=== PATIENT | male | born 1955 | race Caucasian/White ===

== ENCOUNTER → 2016-03-28 | Day surgery (SDC) | payer OTHER ==
[2016-03-22 13:33] VITALS: Ht 177.8 cm; Wt 97.7 kg
[~2016-03-28] VITALS: Ht 177.8 cm; Wt 97.7 kg
[~2016-03-28] MED LIST: BUPR-267 PO; CALC600T PO; ESCI1TAB9 PO; FERR325T51 PO; FURO-85 PO; FURO40TA3 PO; INSPMPNVLG; LEVO200T6 PO; LEVO75TA5 PO; LEVOPOW36 PO; LORA-741 PO; LSN5 PO; METF-384 PO; OMEP40CA PO; ONDA4TAB10 SL; OXYC1TAB3 PO; PROP10TA7 PO; SIMV20TA2 PO; SODIUM CHLORIDE 0.9% 500ML 500 ML IV ONE; SPIR50TA2 PO; SPR/100 PO
--- NOTE | 2016-03-28 08:41 | Endo History and Physical ---
History & Physical Date of Service: Mar 28, 2016. Chief Complaint: Esophageal varices Referring Physician: HATTIE Mejia History of Present Illness Hx of liver disease for varices screening. Past Medical History Diabetes, Gastrointestinal Disorder, Anxiety, Reflux, Thyroid Disease, Liver Disease, Depression Past Surgical History Hx Cardiac Surgery: No Hx Internal Defibrillator: No Hx Pacemaker: No Hx Abdominal Surgery: Yes (LIVER RESECTION ) Hx of Implantable Prosthesis: No Hx Post-Op Nausea and Vomiting: No Hx Cancer Surgery: No Hx Thoracic Surgery: No Hx Orthopedic: Yes (RT ARM PLATE INSERTION) Hx Urinary Tract Surgery: No Family History None Social History Smoking Status: Former Smoker Hx Substance Use: No Hx Alcohol Use: No Allergies Coded Allergies: Phenol (Verified Allergy, Severe, DIARRHEA, 03/28/16) Current Medications Reported Home Medications Medications Dose Route/Sig Max Daily Dose Days Date Category Levothyroxine Sodium (Levothyroxine Sodium (Bulk)) 1 Pow 275 Mcg PO DAILY 03/28/16 Reported Roxicodone Ir (Oxycodone HCl) 5 Mg Tab 5 Mg PO Q6H PRN 11/24/15 Reported Lexapro (Escitalopram Oxalate) 10 Mg Tab 10 Mg PO QAM 09/16/15 Reported Inderal (Propranolol HCl) 10 Mg Tab 10 Mg PO BID 09/16/15 Reported Aldactone (Spironolactone) 50 Mg Tab 50 Mg PO QAM 01/10/15 Reported Zofran Odt (Ondansetron HCl) 4 Mg Tab 4 Mg SL Q6H PRN 01/02/15 Reported Calcium 600 (Calcium Carbonate) 600 Mg Tab 1 Tabs PO BID 01/02/15 Reported Iron Supplement (Ferrous Sulfate) 325 Mg Tab 1 Tab PO BID 01/02/15 Reported Lasix (Furosemide) 20 Mg Tab 20 Mg PO QAM 01/02/15 Reported Prilosec (Omeprazole) 40 Mg Capcr 40 Mg PO BID 01/02/15 Reported novoLOG INSULIN PUMP (Insulin Aspart) 1 Ea Inj 1 Ea N/A UD 01/02/15 Reported Ativan (Lorazepam) 0.5 Mg Tab 0.5 Mg PO TID PRN 01/02/15 Reported Glucophage (Metformin Hcl) 1,000 Mg Tab 1,000 Mg PO BID 01/02/15 Reported Lisinopril 5 Mg Tab 5 Mg PO QAM 01/02/15 Reported Bupropion Hcl Er (Bupropion Hcl) 150 Mg Tab 150 Mg PO Q12 01/02/15 Reported Zocor (Simvastatin) 20 Mg Tab 20 Mg PO QPM 01/02/15 Reported Vital Signs Weight (Kilograms): 97.73 Height (Feet): 5 Height (Inches): 10 Date Time Temp Pulse Resp B/P Pulse Ox O2 Delivery O2 Flow Rate FiO2 03/28/16 08:14 36.4 71 16 119/65 97 Room Air Physical Exam General Appearance: no apparent distress Respiratory/Chest: Auscultation: breath sounds normal Cardiovascular: Heart Auscultation: RRR Abdomen: Inspection & Palpation: soft, no masses Assessment and Plan stable for EGD
--- NOTE | 2016-03-28 08:53 | Discharge Instructions ---
Endoscopy Patient Instructions Date / Procedure(s) Performed Mar 28, 2016. EGD Allergy Information Coded Allergies: Phenol (Verified Allergy, Severe, DIARRHEA, 03/28/16) Discharge Date / Findings Mar 28, 2016. grade I varices Medication Instructions Stopped Medication(s): Patient doesn't remember what he was told that he could have today. He's only taken ativan last night and all other meds were taken on Saturday. Provider Instructions Activity Restrictions - No exercising or heavy lifting for 24 hours. - Do not drink alcohol the day of the procedure. - Do not drive a car or operate machinery until the day after the procedure. - Do not make any important decisions or sign important papers in 24 hours after the procedure. Following Day: - Return to full activity which may include returning to work/school. Diet Start your diet with liquids and light foods (jello, soup, juice, toast). Then eat your usual diet if not nauseated. Treatment For Common After Affects For mild abdominal pain, bloating, or excessive gas: - Rest - Eat lightly - Lie on right side Follow-Up Information Follow-up with HATTIE Mejia as scheduled Anesthesia Information What You Should Know You have had a procedure that required some medicine to reduce anxiety and discomfort. This treatment is called moderate sedation. After receiving the treatment, you may be sleepy, but you will be able to breathe on your own. The effects of the treatment may last for several hours. Follow these instructions along with Activity/Diet recommendations noted above: * Do NOT do anything where dizziness or clumsiness would be dangerous. * Rest quietly at home today, then you can be up and about tomorrow. * Have a responsible person stay with you the rest of today. * You may have had an I.V. today. If so, you may take the dressing off later today. Recommendations Call your doctor if: * Trouble breathing * Continuous vomiting for more than 24 hours * Temperature above 101 degrees * Severe abdominal pain or bloating * Pain not relieved by pain medicine ordered * There is increased drainage or redness from any incision * A large amount of rectal bleeding greater than 2-3 tablespoons. (If you had a polyp/s removed or have hemorrhoids, a small amount of blood - from the rectum is to be expected.) * You have any unanswered questions or concerns. IN THE EVENT OF A SERIOUS EMERGENCY, GO TO THE NEAREST EMERGENCY ROOM Your discharge instructions were prepared by provider Edy Branch. Patient Instructions Signature Page Aaron Maherler Patient (or Guardian) Signature/Date: I have read and understand the instructions given to me by my caregivers. Caregiver/RN/Doctor Signature/Date: The above-named patient and/or guardian has received patient instructions on this date. + Original Patient Signature Page (only) stays with chart. Please make copy for patient.
--- NOTE | 2016-03-28 09:05 | GI REPORT ---
Procedure Date: 03/28/2016 8:40 AM Procedure: Upper GI endoscopy Indications: Esophageal varices Medicines: See the Anesthesia note for documentation of the administered medications Complications: No immediate complications. Estimated Blood Loss: Estimated blood loss: none. Procedure: Pre-Anesthesia Assessment: - Prior to the procedure, a History and Physical was performed, and patient medications, allergies and sensitivities were reviewed. The patient's tolerance of previous anesthesia was reviewed. - The risks and benefits of the procedure and the sedation options and risks were discussed with the patient. All questions were answered and informed consent was obtained. - Patient identification and proposed procedure were verified prior to the procedure by the physician and the nurse. The procedure was verified in the pre-procedure area. - Pre-procedure physical examination revealed no contraindications to sedation. - After reviewing the risks and benefits, the patient was deemed in satisfactory condition to undergo the procedure. After obtaining informed consent, the endoscope was passed under direct vision. Throughout the procedure, the patient's blood pressure, pulse, and oxygen saturations were monitored continuously. The On-site loaner was introduced through the mouth, and advanced to the third part of duodenum. The upper GI endoscopy was accomplished without difficulty. The patient tolerated the procedure well. Findings: Grade I varices were found in the lower third of the esophagus. Moderate portal hypertensive gastropathy was found in the stomach. A small amount of food (residue) was found in the gastric body. A previously placed metal stent was seen in the ampulla. The cardia and gastric fundus were normal on retroflexion. Impression: - Grade I esophageal varices. - Portal hypertensive gastropathy. - A small amount of food (residue) in the stomach. - Metal stent in the duodenum. - No specimens collected. Recommendation: - Repeat the upper endoscopy in 6 months for surveillance. - Discharge patient to home. Edy Branch M.D. Edy Branch MD 03/28/2016 9:03:58 AM This report has been signed electronically. Note Initiated On: 03/28/2016 8:40 AM
--- NOTE | 2016-03-28 09:16 | Anesthesiology Progress Note ---
Anesthesia Post Op Note Date & Time Mar 28, 2016 at 09:15 Vital Signs Pain Intensity: 0 Vital Signs Past 12 Hours Date Time Temp Pulse Resp B/P Pulse Ox O2 Delivery O2 Flow Rate FiO2 03/28/16 09:12 67 20 104/64 97 Room Air 03/28/16 08:57 55 20 100/59 97 Room Air 03/28/16 08:14 36.4 71 16 119/65 97 Room Air Notes Mental Status: alert / awake / arousable, participated in evaluation Pt Amnestic to Procedure: Yes Nausea / Vomiting: adequately controlled Pain: adequately controlled Airway Patency, RR, SpO2: stable & adequate BP & HR: stable & adequate Hydration State: stable & adequate Anesthetic Complications: no major complications apparent
[2016-03-28 09:43] VITALS: BP 115/71; PULSE 67; O2SAT 97
== END | disposition home or self-care (01) ==
LOC: C.GI 07:47
PROVIDERS: ATTEND Internal Medicine Gastroenterology
DX: I85.00 Esophageal varices without bleeding (principal); K21.9 Gastro-esophageal reflux disease without esophagitis; K31.89 Other diseases of stomach and duodenum; K76.9 Liver disease, unspecified; E11.9 Type 2 diabetes mellitus without complications; F41.9 Anxiety disorder, unspecified; E07.9 Disorder of thyroid, unspecified; Z90.89 Acquired absence of other organs; Z88.8 Allergy status to other drugs, medicaments and biological substances; Z87.891 Personal history of nicotine dependence

== ENCOUNTER → 2016-08-02 | Outpatient (CLI) | payer OTHER ==
[~2016-08-02] MED LIST changes: -SODIUM CHLORIDE 0.9% 500ML 500 ML IV ONE
== END | disposition home or self-care (01) ==
LOC: C.LABPVFM 11:40
PROVIDERS: ATTEND Nurse Practitioner
DX: E03.9 Hypothyroidism, unspecified (principal)

== ENCOUNTER → 2016-11-06 | Day surgery (SDC) | payer OTHER ==
[2016-10-29 08:22] VITALS: Ht 177.8 cm; Wt 86.4 kg
[~2016-11-06] VITALS: Ht 177.8 cm; Wt 86.4 kg
[~2016-11-06] MED LIST changes: -FURO-85 PO; -LEVOPOW36 PO; +LIDOCAINE HCL 2% 2 ML VIAL (20MG/ML) ONE; -LSN5 PO; +PROPOFOL IV EMULSION 10 MG/ML 20 ML VIAL IV ONE; +SODIUM CHLORIDE 0.9% 500ML 500 ML IV ONE; -SPIR50TA2 PO
--- NOTE | 2016-11-06 09:38 | Endo History and Physical ---
History & Physical Date of Service: Nov 06, 2016. Chief Complaint: Esophageal varices Referring Physician: Neelam Cooper History of Present Illness hx of cirrhosis/ varices screening Past Medical History Diabetes, Gastrointestinal Disorder, Anxiety, Reflux, Thyroid Disease, Liver Disease, Depression Past Surgical History Hx Cardiac Surgery: No Hx Internal Defibrillator: No Hx Pacemaker: No Hx Abdominal Surgery: Yes (LIVER RESECTION AND TUMOR REMOVAL, HERNIA REPAIR) Hx of Implantable Prosthesis: No Hx Post-Op Nausea and Vomiting: No Hx Cancer Surgery: No Hx Thoracic Surgery: No Hx Orthopedic: Yes (RT ARM PLATE INSERTION) Hx Urinary Tract Surgery: No Family History None Social History Smoking Status: Former Smoker Hx Substance Use: No Hx Alcohol Use: No Allergies Coded Allergies: Phenol (Verified Adverse Reaction, Severe, DIARRHEA, 10/29/16) Current Medications Reported Home Medications Medications Dose Route/Sig Max Daily Dose Days Date Category Levothyroxine Sodium 200 Mcg Tab 1 Tab PO QAM 10/29/16 Reported Levothyroxine Sodium 75 Mcg Tab 1 Tab PO QAM 10/29/16 Reported Aldactone (Spironolactone) 100 Mg Tab 100 Mg PO QAM 10/29/16 Reported Lasix (Furosemide) 40 Mg Tab 40 Mg PO QAM 10/29/16 Reported Roxicodone Ir (Oxycodone HCl) 5 Mg Tab 5 Mg PO Q6H PRN 11/24/15 Reported Lexapro (Escitalopram Oxalate) 10 Mg Tab 10 Mg PO QAM 09/16/15 Reported Inderal (Propranolol HCl) 10 Mg Tab 10 Mg PO BID 09/16/15 Reported Zofran Odt (Ondansetron HCl) 4 Mg Tab 4 Mg SL Q6H PRN 01/02/15 Reported Calcium 600 (Calcium Carbonate) 600 Mg Tab 1 Tabs PO BID 01/02/15 Reported Iron Supplement (Ferrous Sulfate) 325 Mg Tab 1 Tab PO BID 01/02/15 Reported Prilosec (Omeprazole) 40 Mg Capcr 40 Mg PO BID 01/02/15 Reported novoLOG INSULIN PUMP (Insulin Aspart) 1 Ea Inj 1 Ea N/A UD 01/02/15 Reported Ativan (Lorazepam) 0.5 Mg Tab 0.5 Mg PO TID PRN 01/02/15 Reported Glucophage (Metformin Hcl) 1,000 Mg Tab 1,000 Mg PO BID 01/02/15 Reported Bupropion Hcl Er (Bupropion Hcl) 150 Mg Tab 150 Mg PO Q12 01/02/15 Reported Zocor (Simvastatin) 20 Mg Tab 20 Mg PO QPM 01/02/15 Reported Vital Signs Weight (Kilograms): 86.36 Height (Feet): 5 Height (Inches): 10 Date Time Temp Pulse Resp B/P (MAP) Pulse Ox O2 Delivery O2 Flow Rate FiO2 11/06/16 09:25 36.8 57 20 98/65 (76) 97 Room Air Physical Exam General Appearance: no apparent distress Respiratory/Chest: Auscultation: breath sounds normal Cardiovascular: Heart Auscultation: RRR Abdomen: Inspection & Palpation: soft Liver: non-tender Assessment and Plan stable for EGD
--- NOTE | 2016-11-06 10:12 | Discharge Instructions ---
Endoscopy Patient Instructions Date / Procedure(s) Performed Nov 06, 2016. EGD Allergy Information Coded Allergies: Phenol (Verified Adverse Reaction, Severe, DIARRHEA, 10/29/16) Discharge Date / Findings Nov 06, 2016. grade 1 varices and portal gastropathy Provider Instructions Activity Restrictions - No exercising or heavy lifting for 24 hours. - Do not drink alcohol the day of the procedure. - Do not drive a car or operate machinery until the day after the procedure. - Do not make any important decisions or sign important papers in 24 hours after the procedure. Following Day: - Return to full activity which may include returning to work/school. Diet Start your diet with liquids and light foods (jello, soup, juice, toast). Then eat your usual diet if not nauseated. Treatment For Common After Affects For mild abdominal pain, bloating, or excessive gas: - Rest - Eat lightly - Lie on right side Follow-Up Information Follow-up with Neelam Cooper as scheduled Anesthesia Information What You Should Know You have had a procedure that required some medicine to reduce anxiety and discomfort. This treatment is called moderate sedation. After receiving the treatment, you may be sleepy, but you will be able to breathe on your own. The effects of the treatment may last for several hours. Follow these instructions along with Activity/Diet recommendations noted above: * Do NOT do anything where dizziness or clumsiness would be dangerous. * Rest quietly at home today, then you can be up and about tomorrow. * Have a responsible person stay with you the rest of today. * You may have had an I.V. today. If so, you may take the dressing off later today. Recommendations Call your doctor if: * Trouble breathing * Continuous vomiting for more than 24 hours * Temperature above 101 degrees * Severe abdominal pain or bloating * Pain not relieved by pain medicine ordered * There is increased drainage or redness from any incision * A large amount of rectal bleeding greater than 2-3 tablespoons. (If you had a polyp/s removed or have hemorrhoids, a small amount of blood - from the rectum is to be expected.) * You have any unanswered questions or concerns. IN THE EVENT OF A SERIOUS EMERGENCY, GO TO THE NEAREST EMERGENCY ROOM Your discharge instructions were prepared by provider Edy Branch. Patient Instructions Signature Page Aaron Pryor Patient (or Guardian) Signature/Date: I have read and understand the instructions given to me by my caregivers. Caregiver/RN/Doctor Signature/Date: The above-named patient and/or guardian has received patient instructions on this date. + Original Patient Signature Page (only) stays with chart. Please make copy for patient.
--- NOTE | 2016-11-06 10:16 | GI REPORT ---
Procedure Date: 11/06/2016 9:44 AM Procedure: Upper GI endoscopy Indications: Portal hypertension rule out esophageal varices Medicines: See the Anesthesia note for documentation of the administered medications Complications: No immediate complications. Estimated Blood Loss: Estimated blood loss: none. Procedure: Pre-Anesthesia Assessment: - Prior to the procedure, a History and Physical was performed, and patient medications, allergies and sensitivities were reviewed. The patient's tolerance of previous anesthesia was reviewed. - The risks and benefits of the procedure and the sedation options and risks were discussed with the patient. All questions were answered and informed consent was obtained. - Patient identification and proposed procedure were verified prior to the procedure by the physician and the nurse. The procedure was verified in the pre-procedure area. - Pre-procedure physical examination revealed no contraindications to sedation. - After reviewing the risks and benefits, the patient was deemed in satisfactory condition to undergo the procedure. After obtaining informed consent, the endoscope was passed under direct vision. Throughout the procedure, the patient's blood pressure, pulse, and oxygen saturations were monitored continuously. The scope was introduced through the mouth, and advanced to the third part of duodenum. The upper GI endoscopy was accomplished without difficulty. The patient tolerated the procedure well. Findings: Grade I varices were found in the lower third of the esophagus. Mild portal hypertensive gastropathy was found in the gastric body. A previously placed metal stent was seen in the area of the papilla. The cardia and gastric fundus were normal on retroflexion. Impression: - Grade I esophageal varices. - Portal hypertensive gastropathy. - Metal stent in the duodenum. - No specimens collected. Recommendation: - Repeat the upper endoscopy in 6 months for screening purposes. - Discharge patient to home. Edy Branch M.D. Edy Branch MD 11/06/2016 10:15:37 AM This report has been signed electronically. Note Initiated On: 11/06/2016 9:44 AM I attest to the content of the Intraoperative Record and orders documented therein, exceptions below
[2016-11-06 10:39] VITALS: BP 93/63; PULSE 55; O2SAT 98
--- NOTE | 2016-11-06 10:45 | Anesthesiology Progress Note ---
Anesthesia Post Op Note Date & Time Nov 06, 2016 at 10:45 Vital Signs Pain Intensity: 0 Vital Signs Past 12 Hours Date Time Temp Pulse Resp B/P (MAP) Pulse Ox O2 Delivery O2 Flow Rate FiO2 11/06/16 10:39 55 20 93/63 (73) 98 Room Air 11/06/16 10:24 55 20 105/63 (77) 96 Room Air 11/06/16 10:09 57 20 97/64 (75) 93 Room Air 11/06/16 09:25 36.8 57 20 98/65 (76) 97 Room Air Notes Mental Status: alert / awake / arousable, participated in evaluation Pt Amnestic to Procedure: Yes Nausea / Vomiting: adequately controlled Pain: adequately controlled Airway Patency, RR, SpO2: stable & adequate BP & HR: stable & adequate Hydration State: stable & adequate Anesthetic Complications: no major complications apparent
== END | disposition home or self-care (01) ==
LOC: C.GI 08:35
PROVIDERS: ATTEND Internal Medicine Gastroenterology
DX: I85.10 Secondary esophageal varices without bleeding (principal); K76.6 Portal hypertension; E11.9 Type 2 diabetes mellitus without complications; E07.9 Disorder of thyroid, unspecified; F41.8 Other specified anxiety disorders; Z79.899 Other long term (current) drug therapy; Z87.891 Personal history of nicotine dependence

== ENCOUNTER → 2016-12-06 | Outpatient (CLI) | payer OTHER ==
[~2016-12-06] MED LIST changes: -LIDOCAINE HCL 2% 2 ML VIAL (20MG/ML) ONE; -PROPOFOL IV EMULSION 10 MG/ML 20 ML VIAL IV ONE; -SODIUM CHLORIDE 0.9% 500ML 500 ML IV ONE
[2016-12-06 18:22] LABS: BLOOD UREA NITROGEN 9 mg/dl (7-18); BUN/CREATININE RATIO 8.4 (10-20); CALCIUM 9.4 mg/dl (8.5-10.1); CARBON DIOXIDE 27 mmol/L (21-32); CHLORIDE 102 mmol/L (98-107); GLUCOSE 67 mg/dl (70-99); POTASSIUM 4.1 mmol/L (3.5-5.1); SODIUM 138 mmol/L (136-145)
[2016-12-06 18:46] LABS: CHOLESTEROL/HDL RATIO 2.9
[2016-12-07 06:55] LABS: ESTIMATED AVERAGE GLUCOSE 114 mg/dl; HA1C FLAG Normal (Normal)
== END | disposition home or self-care (01) ==
LOC: C.LABPVFM 11:47
PROVIDERS: ATTEND Nurse Practitioner
DX: E78.5 Hyperlipidemia, unspecified (principal); E11.9 Type 2 diabetes mellitus without complications; I95.9 Hypotension, unspecified

== ENCOUNTER → 2017-04-15 | Outpatient (CLI) | payer OTHER ==
[2017-04-15 13:26] LABS: HEMOGLOBIN A1C 5.9 % (4.5-5.6)
[2017-04-15 13:52] LABS: BLOOD UREA NITROGEN 10 mg/dl (7-18); CALCIUM 9.3 mg/dl (8.5-10.1); CARBON DIOXIDE 28 mmol/L (21-32); CREATININE 0.95 mg/dl (0.60-1.40); GLUCOSE 43 mg/dl (70-99); POTASSIUM 3.9 mmol/L (3.5-5.1); SODIUM 138 mmol/L (136-145)
[2017-04-15 15:18] LABS: ALBUMIN 2.9 gm/dl (3.4-5.0); ALKALINE PHOSPHATASE 148 U/L (45-117); ALT/SGPT 50 U/L (12-78); AST/SGOT 58 U/L (15-37); TOTAL PROTEIN 8.4 gm/dl (6.4-8.2)
== END | disposition home or self-care (01) ==
LOC: C.LABPVFM 10:35
PROVIDERS: ATTEND Nurse Practitioner
DX: E11.9 Type 2 diabetes mellitus without complications (principal); E03.9 Hypothyroidism, unspecified

== ENCOUNTER → 2017-06-12 | Outpatient (CLI) | payer OTHER ==
[~2017-06-12] MED LIST changes: +BIOT1CAP8 PO; +FERR1TAB13 PO; -FERR325T51 PO; +FURO-85 PO; -FURO40TA3 PO; +LSX/40 PO; -OMEP40CA PO; +OMEP40CA41 PO
[2017-06-12 14:25] LABS: ALBUMIN 3.1 gm/dl (3.4-5.0); ALT/SGPT 82 U/L (12-78); BLOOD UREA NITROGEN 16 mg/dl (7-18); CARBON DIOXIDE 27 mmol/L (21-32); CREATININE 1.24 mg/dl (0.60-1.40); GLUCOSE 112 mg/dl (70-99); POTASSIUM 4.4 mmol/L (3.5-5.1); SODIUM 136 mmol/L (136-145)
[2017-06-12 14:28] LABS: ALKALINE PHOSPHATASE 168 U/L (45-117); AST/SGOT 96 U/L (15-37); TOTAL PROTEIN 8.4 gm/dl (6.4-8.2)
== END | disposition home or self-care (01) ==
LOC: C.LABPVFM 09:31
PROVIDERS: ATTEND Nurse Practitioner
DX: E03.9 Hypothyroidism, unspecified (principal); E11.9 Type 2 diabetes mellitus without complications

== ENCOUNTER → 2017-06-18 | Day surgery (SDC) | payer OTHER ==
[2017-06-11 11:35] VITALS: BMI 25.0
[~2017-06-18] VITALS: Ht 177.8 cm; Wt 80.9 kg
[~2017-06-18] MED LIST changes: +LIDOCAINE HCL 2% 2 ML VIAL (20MG/ML) ONE; +PROPOFOL IV EMULSION 10 MG/ML 20 ML VIAL IV ONE; +SODIUM CHLORIDE 0.9% 500ML 500 ML IV ONE
[2017-06-18 10:03] VITALS: Ht 177.8 cm; Wt 80.9 kg
--- NOTE | 2017-06-18 10:42 | Endo History and Physical ---
History & Physical Date of Service: Jun 18, 2017. Chief Complaint: 6 MONTH RECALL Referring Physician: DR. LECHUGA History of Present Illness Patient with hx of cirrhosis. Past Medical History Diabetes, Gastrointestinal Disorder, Anxiety, Reflux, Thyroid Disease, Liver Disease, Depression Past Surgical History Hx Cardiac Surgery: No Hx Internal Defibrillator: No Hx Pacemaker: No Hx Abdominal Surgery: Yes (LIVER RESECTION AND TUMOR REMOVAL, HERNIA REPAIR) Hx of Implantable Prosthesis: No Hx Post-Op Nausea and Vomiting: No Hx Cancer Surgery: No Hx Thoracic Surgery: No Hx Orthopedic: Yes (RT ARM PLATE INSERTION) Hx Urinary Tract Surgery: No Family History None Social History Smoking Status: Former Smoker Hx Substance Use: No Hx Alcohol Use: No Allergies Coded Allergies: Phenol (Verified Adverse Reaction, Severe, DIARRHEA, 11/06/16) Current Medications Reported Home Medications Medications Dose Route/Sig Max Daily Dose Days Date Category Prilosec (Omeprazole) 40 Mg Cap 40 Mg PO BID 06/11/17 Reported Kp Ferrous Sulfate (Ferrous Sulfate) 325 Mg Tab 1 Tab PO BID 06/11/17 Reported Lasix (Furosemide) 40 Mg Tab 40 Mg PO QAM 06/11/17 Reported Lasix (Furosemide) 20 Mg Tab 20 Mg PO QAM 06/11/17 Reported Biotin 1 Mg Cap 1 Cap PO DAILY 06/11/17 Reported Levothyroxine Sodium 200 Mcg Tab 1 Tab PO QAM 10/29/16 Reported Levothyroxine Sodium 75 Mcg Tab 1 Tab PO QAM 10/29/16 Reported Aldactone (Spironolactone) 100 Mg Tab 100 Mg PO QAM 10/29/16 Reported Roxicodone Ir (Oxycodone HCl) 5 Mg Tab 5 Mg PO Q6H PRN 11/24/15 Reported Lexapro (Escitalopram Oxalate) 10 Mg Tab 10 Mg PO QAM 09/16/15 Reported Inderal (Propranolol HCl) 10 Mg Tab 10 Mg PO BID 09/16/15 Reported Zofran Odt (Ondansetron HCl) 4 Mg Tab 4 Mg SL Q6H PRN 01/02/15 Reported Calcium 600 (Calcium Carbonate) 600 Mg Tab 1 Tabs PO BID 01/02/15 Reported novoLOG INSULIN PUMP (Insulin Aspart) 1 Ea Inj 1 Ea N/A UD 01/02/15 Reported Ativan (Lorazepam) 0.5 Mg Tab 0.5 Mg PO TID PRN 01/02/15 Reported Glucophage (Metformin Hcl) 1,000 Mg Tab 1,000 Mg PO BID 01/02/15 Reported Bupropion Hcl Er (Bupropion Hcl) 150 Mg Tab 150 Mg PO Q12 01/02/15 Reported Zocor (Simvastatin) 20 Mg Tab 20 Mg PO QPM 01/02/15 Reported Vital Signs Weight (Kilograms): 80.91 Height (Feet): 5 Height (Inches): 10 Date Time Temp Pulse Resp B/P (MAP) Pulse Ox O2 Delivery O2 Flow Rate FiO2 06/18/17 10:23 36.4 50 20 105/62 (76) 99 Room Air Physical Exam General Appearance: no apparent distress Respiratory/Chest: Auscultation: breath sounds normal Cardiovascular: Heart Auscultation: RRR Abdomen: Inspection & Palpation: soft Liver: non-tender Assessment and Plan stable for EGD.
--- NOTE | 2017-06-18 11:57 | Discharge Instructions ---
Endoscopy Patient Instructions Date / Procedure(s) Performed Jun 18, 2017. EGD Allergy Information Coded Allergies: Phenol (Verified Adverse Reaction, Severe, DIARRHEA, 11/06/16) Discharge Date / Findings Jun 18, 2017. stable varices Medication Instructions Stopped Medication(s): METFORMAN Provider Instructions Activity Restrictions - No exercising or heavy lifting for 24 hours. - Do not drink alcohol the day of the procedure. - Do not drive a car or operate machinery until the day after the procedure. - Do not make any important decisions or sign important papers in 24 hours after the procedure. Following Day: - Return to full activity which may include returning to work/school. Diet Start your diet with liquids and light foods (jello, soup, juice, toast). Then eat your usual diet if not nauseated. Treatment For Common After Affects For mild abdominal pain, bloating, or excessive gas: - Rest - Eat lightly - Lie on right side Follow-Up Information Follow-up with DR. LECHUGA as scheduled Anesthesia Information What You Should Know You have had a procedure that required some medicine to reduce anxiety and discomfort. This treatment is called moderate sedation. After receiving the treatment, you may be sleepy, but you will be able to breathe on your own. The effects of the treatment may last for several hours. Follow these instructions along with Activity/Diet recommendations noted above: * Do NOT do anything where dizziness or clumsiness would be dangerous. * Rest quietly at home today, then you can be up and about tomorrow. * Have a responsible person stay with you the rest of today. * You may have had an I.V. today. If so, you may take the dressing off later today. Recommendations Call your doctor if: * Trouble breathing * Continuous vomiting for more than 24 hours * Temperature above 101 degrees * Severe abdominal pain or bloating * Pain not relieved by pain medicine ordered * There is increased drainage or redness from any incision * A large amount of rectal bleeding greater than 2-3 tablespoons. (If you had a polyp/s removed or have hemorrhoids, a small amount of blood - from the rectum is to be expected.) * You have any unanswered questions or concerns. IN THE EVENT OF A SERIOUS EMERGENCY, GO TO THE NEAREST EMERGENCY ROOM Your discharge instructions were prepared by provider Edy Branch. Patient Instructions Signature Page Aaron Pryor Patient (or Guardian) Signature/Date: I have read and understand the instructions given to me by my caregivers. Caregiver/RN/Doctor Signature/Date: The above-named patient and/or guardian has received patient instructions on this date. + Original Patient Signature Page (only) stays with chart. Please make copy for patient.
--- NOTE | 2017-06-18 12:12 | GI REPORT ---
Procedure Date: 06/18/2017 10:49 AM Procedure: Upper GI endoscopy Indications: Cirrhosis rule out esophageal varices Medicines: See the Anesthesia note for documentation of the administered medications Complications: No immediate complications. Estimated Blood Loss: Estimated blood loss: none. Procedure: Pre-Anesthesia Assessment: - Prior to the procedure, a History and Physical was performed, and patient medications, allergies and sensitivities were reviewed. The patient's tolerance of previous anesthesia was reviewed. - The risks and benefits of the procedure and the sedation options and risks were discussed with the patient. All questions were answered and informed consent was obtained. - Patient identification and proposed procedure were verified prior to the procedure by the physician and the nurse. The procedure was verified in the pre-procedure area. - Pre-procedure physical examination revealed no contraindications to sedation. - After reviewing the risks and benefits, the patient was deemed in satisfactory condition to undergo the procedure. After obtaining informed consent, the endoscope was passed under direct vision. Throughout the procedure, the patient's blood pressure, pulse, and oxygen saturations were monitored continuously. The scope was introduced through the mouth, and advanced to the third part of duodenum. The upper GI endoscopy was accomplished without difficulty. The patient tolerated the procedure well. Findings: Grade I varices were found in the lower third of the esophagus. Moderate portal hypertensive gastropathy was found in the gastric antrum. A previously placed metal stent was seen in the area of the papilla. The cardia and gastric fundus were normal on retroflexion. Impression: - Grade I esophageal varices. - Portal hypertensive gastropathy. - Metal stent in the duodenum. - No specimens collected. Recommendation: - Repeat upper endoscopy in 6 months for surveillance. - Discharge patient to home. Edy Branch M.D. Edy Branch MD 06/18/2017 12:12:09 PM This report has been signed electronically. Note Initiated On: 06/18/2017 10:49 AM I attest to the content of the Intraoperative Record and orders documented therein, exceptions below
[2017-06-18 12:30] VITALS: BP 97/62; PULSE 51; O2SAT 98
--- NOTE | 2017-06-18 14:50 | Anesthesiology Progress Note ---
Anesthesia Post Op Note Date & Time Jun 18, 2017 at 14:50 Vital Signs Pain Intensity: 0 Vital Signs Past 12 Hours Date Time Temp Pulse Resp B/P (MAP) Pulse Ox O2 Delivery O2 Flow Rate FiO2 06/18/17 12:30 51 16 97/62 (74) 98 Room Air 06/18/17 12:15 52 16 92/71 (78) 99 Room Air 06/18/17 12:00 47 16 111/65 (80) 97 Room Air 06/18/17 10:23 36.4 50 20 105/62 (76) 99 Room Air Notes Mental Status: alert / awake / arousable, participated in evaluation Pt Amnestic to Procedure: Yes Nausea / Vomiting: adequately controlled Pain: adequately controlled Airway Patency, RR, SpO2: stable & adequate BP & HR: stable & adequate Hydration State: stable & adequate Anesthetic Complications: no major complications apparent
== END | disposition home or self-care (01) ==
LOC: C.GI 09:44
PROVIDERS: ATTEND Internal Medicine Gastroenterology
DX: I85.00 Esophageal varices without bleeding (principal); K31.89 Other diseases of stomach and duodenum; K74.60 Unspecified cirrhosis of liver; E11.9 Type 2 diabetes mellitus without complications; F41.9 Anxiety disorder, unspecified; K21.9 Gastro-esophageal reflux disease without esophagitis; E07.9 Disorder of thyroid, unspecified; F32.9 Major depressive disorder, single episode, unspecified; Z87.891 Personal history of nicotine dependence; Z88.8 Allergy status to other drugs, medicaments and biological substances; Z79.899 Other long term (current) drug therapy; Z79.4 Long term (current) use of insulin

== ENCOUNTER 2017-10-19 11:12 | Emergency (ER) | payer OTHER ==
[~2017-10-19] VITALS: Ht 177.8 cm; Wt 85.6 kg
[~2017-10-19 11:12] MED LIST changes: -LIDOCAINE HCL 2% 2 ML VIAL (20MG/ML) ONE; +OXYC-90 PO; -OXYC1TAB3 PO; -PROPOFOL IV EMULSION 10 MG/ML 20 ML VIAL IV ONE; -SODIUM CHLORIDE 0.9% 500ML 500 ML IV ONE; +SPIR100T3 PO; -SPR/100 PO
[2017-10-19 11:24] VITALS: TEMP 36.5; Ht 177.8 cm; Wt 85.6 kg
[2017-10-19] MEDS ORDERED: NVLG (12:10)
[2017-10-19] MEDS ORDERED: INSDGI SC (12:10)
[2017-10-19] MEDS ORDERED: SODIUM CHLORIDE 0.9% 1000ML 1,000 ML IV STA (12:25)
[2017-10-19] MEDS ORDERED: MoRPHine SULFATE 10 MG/ML CARP/VIAL IV STA (12:25)
[2017-10-19] MEDS ORDERED: ONDANSETRON INJ 2 MG/ML 2 ML VIAL IV STA ×2 (12:25→14:44)
[2017-10-19] MEDS ORDERED: OPTIRAY 320 IV PRN (12:30)
[2017-10-19 12:52] LABS: BASO % 0.6 %; BASO ABS # 0.04 K/uL (0-0.2); EOS % 2.4 %; EOS ABS # 0.17 K/uL (0-0.5); HEMATOCRIT 40.8 % (42-52); HEMOGLOBIN 13.9 g/dL (14.0-18.0); IG# 0.02 K/uL (0.00-0.02); LYMPH % 10.4 %; LYMPH ABS # 0.74 K/uL (1.2-3.4); MEAN CELL VOLUME 98.8 fL (80-100); MEAN CORPUSCULAR HEMOGLOBIN 33.7 pg (25-34); MEAN CORPUSCULAR HGB CONC 34.1 g/dl (32-36); MEAN PLATELET VOLUME 10.4 fL (7.4-10.4); MONO ABS # 0.78 K/uL (0.11-0.59); NEUT % 75.3 %; NEUT ABS # 5.35 K/uL (1.4-6.5); PLATELET COUNT 211 K/uL (130-400); RED CELL DISTRIBUTION WIDTH CV 14.1 % (11.5-14.5); RED CELL DISTRIBUTION WIDTH SD 50.3 fL (36.4-46.3)
[2017-10-19] MEDS ORDERED: MoRPHine SULFATE 4 MG/ML 1 ML CARP\\VIAL IV STA ×2 (12:53→14:32)
[2017-10-19 13:13] LABS: ALBUMIN 3.3 gm/dl (3.4-5.0); ALKALINE PHOSPHATASE 190 U/L (45-117); ALT/SGPT 61 U/L (12-78); AST/SGOT 66 U/L (15-37); BLOOD UREA NITROGEN 15 mg/dl (7-18); CALCIUM 9.2 mg/dl (8.5-10.1); CARBON DIOXIDE 25 mmol/L (21-32); CREATININE 1.13 mg/dl (0.60-1.40); GLUCOSE 134 mg/dl (70-99); LIPASE 230 U/L (73-393); POTASSIUM 4.1 mmol/L (3.5-5.1); SODIUM 135 mmol/L (136-145); TOTAL PROTEIN 8.6 gm/dl (6.4-8.2)
--- NOTE | 2017-10-19 14:47 | DIAGNOSTIC IMAGING REPORT ---
CT SCAN OF THE ABDOMEN AND PELVIS WITH IV CONTRAST CLINICAL HISTORY: Nausea. Right upper quadrant abdominal pain. COMPARISON STUDY: Abdominal CT dated 11/24/2015. TECHNIQUE: Following the IV administration of 93 cc of Optiray 320, CT scan of the abdomen and pelvis is performed from the lung bases to the proximal femora. Images are reviewed in the axial, sagittal, and coronal planes. IV contrast was administered without complication. A dose lowering technique was utilized adhering to the principles of ALARA. CT DOSE: 538.03 mGy.cm FINDINGS: Lung bases: The heart is normal in size and without pericardial effusion. There are coronary artery calcifications. There is elevation of the right hemidiaphragm with atelectasis in the right middle lobe. No airspace consolidation or pleural effusion is identified. A large calcified granuloma is seen in the right lower lobe. There is a small hiatal hernia. Gynecomastia is noted. Liver: The right lobe of the liver is surgically absent. There is compensatory hypertrophy of the left hepatic lobe. Hepatic attenuation is markedly heterogeneous. Nodularity of the liver suggests changes of cirrhosis. There is no intrahepatic biliary ductal dilatation. The hepatic veins and portal veins are patent. A 2.3 cm cystic focus is again seen within the anterior right lobe. This appears increased likely complex or 11/24/2015. A common bile duct stent is in place. This extends early mid common duct to the duodenum, and is unchanged in position from the 2016 examination. Minimal pneumobilia is noted and suggests patency of the stent. Gallbladder: Surgically absent. Spleen: Normal in size and attenuation. There are numerous calcified splenic granulomas. Pancreas: The pancreas is atrophic and grossly unremarkable. Adrenal glands: Unremarkable. Kidneys: The contrast enhanced kidneys demonstrate cortical atrophy and are without hydronephrosis. The kidneys enhance symmetrically. Abdominal vasculature: The abdominal aorta is normal in course and caliber noting moderate atherosclerotic calcification. Bowel: There is a large hernia identified in the lateral right lower quadrant abdominal wall. This contains loops of nonobstructed small bowel. The small bowel loops within the hernia appear thick-walled and hyperemic, and there are surrounding inflammatory change and fluid. The appearance is highly concerning for developing ischemia. No pneumatosis intestinalis or portal venous gas is seen. No additional similar-appearing bowel loops are identified in the abdomen or pelvis. The appendix is well-visualized and normal. Peritoneum: There is no intraperitoneal free air. A small volume of abdominopelvic ascites is noted. There is a large fat-containing left supraumbilical hernia. This is seen on image #[id number]. Lymphadenopathy: None. Pelvic viscera: The bladder, prostate, and seminal vesicles are normal as visualized. Surgical clips are noted along the spermatic cord bilaterally. Skeletal structures: The skeletal structures are osteopenic. Mild lumbosacral spondylosis is observed. No lytic or blastic lesions are seen. IMPRESSION: 1. There is a hernia identified in the lateral right lower quadrant abdominal wall which contains nonobstructed small bowel loops. 2. The loops of small bowel within the hernia sac appear thick-walled and hyperemic, and there is significant inflammatory change in the surrounding mesentery as well as fluid within the hernia sac. Although this could represent an enteritis, there are no similar-appearing small bowel loops and the appearance is highly concerning for developing ischemia. Surgical consultation is advised. 3. Again seen are postoperative changes from cholecystectomy, right lobe hepatic resection, and common bile duct stenting. Pneumobilia suggests patency of the stent. 4. There is a small volume of abdominopelvic ascites. No intraperitoneal free air is seen. There is no pneumatosis intestinalis or portal venous gas. 5. There is compensatory hypertrophy of the left hepatic lobe. Cirrhotic change is noted. 6. Additional findings as above. Electronically signed by: Warren Pink M.D. 10/19/2017 2:46 PM Dictated Date/Time: 10/19/2017 2:33 PM
[2017-10-19] MEDS ORDERED: SODIUM CHLORIDE 0.9% 1000ML 1,000 ML IV ONE (14:59)
[2017-10-19 19:38] VITALS: BP 112/71; PULSE 55; O2SAT 98
[2017-10-19] MEDS ORDERED: HYDROCODONE/ACETAMIN 5/325MG TAB PO STA (19:40)
--- NOTE | 2017-10-19 20:30 | EMERGENCY ROOM VISIT NOTE ---
History Report prepared by Nadine: Mary Fritz Under the Supervision of: Dr. Chin Augustine M.D. 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 He reports that when he woke up this morning, he had some pain but he thought it would pass after he ate however, around 1000 his pain had significantly worsened. He began dry heaving and then vomited his breakfast along with some bile. 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 He has some back pain which he states just began but denies any fevers, melena, hematochezia , being around anyone else who is sick. His last normal bowel movement was this morning. The pt reports he has been trying to stay healthy by going to the gym 3x a week. He follow with [facility] and is currently a liver transplant list. 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 A total of ten systems were reviewed and were otherwise negative. Past Medical & Surgical Medical Problems: (1) Cholangiocarcinoma of biliary tract (2) Diabetes mellitus (3) Gall stones (4) Hyperlipidemia (5) Hypothyroid (6) Obstructive jaundice Surgical Problems: (1) S/P ERCP Family History Diabetes mellitus FH: cancer Gallbladder disease Hypertension Social History Smoking Status: Never Smoker Alcohol Use: none Marital Status: Housing Status: lives with significant other Occupation Status: employed Current/Historical Medications Scheduled Biotin (Biotin), 1 CAP PO DAILY Bupropion Hcl (Bupropion Hcl Er), 150 MG PO Q12 Calcium Carbonate (Calcium 600), 600 MG PO BID Escitalopram Oxalate (Lexapro), 10 MG PO QAM Ferrous Sulfate (Kp Ferrous Sulfate), 325 MG PO BID Furosemide (Lasix), 20 MG PO QAM Furosemide (Lasix), 40 MG PO QAM Insulin Glargine (Lantus), 34 UNITS SC QAM Levothyroxine Sodium (Levothyroxine Sodium), 75 MCG PO QAM Levothyroxine Sodium (Levothyroxine Sodium), 200 MCG PO QAM Metformin Hcl (Glucophage), 1,000 MG PO BID Omeprazole (Prilosec), 40 MG PO BID Propranolol (Inderal), 10 MG PO BID Simvastatin (Zocor), 20 MG PO QPM Spironolactone (Aldactone), 100 MG PO QAM Scheduled PRN Lorazepam (Ativan), 0.5 MG PO TID PRN for Anxiety Ondasetron Odt (Zofran Odt), 4 MG SL Q6H PRN for Nausea or Vomiting Miscellaneous Medications Insulin Aspart (Novolog) Allergies Coded Allergies: Phenol (Verified Adverse Reaction, Severe, DIARRHEA, 10/19/17) Physical Exam Vital Signs Date Time Temp Pulse Resp B/P (MAP) Pulse Ox O2 Delivery O2 Flow Rate FiO2 10/19/17 19:38 55 20 112/71 98 10/19/17 17:31 106/61 10/19/17 17:22 57 21 98 10/19/17 17:01 93/63 10/19/17 16:52 54 15 99 10/19/17 16:42 56 10/19/17 16:31 104/59 10/19/17 16:22 55 23 98 10/19/17 16:01 86/54 10/19/17 15:52 63 21 99 10/19/17 15:31 95/61 10/19/17 15:22 53 12 99 10/19/17 15:17 55 15 98 10/19/17 15:01 103/64 10/19/17 14:54 110/67 10/19/17 14:47 52 98 10/19/17 13:47 49 14 97 10/19/17 13:42 48 13 97 10/19/17 13:31 131/78 10/19/17 13:12 48 12 98 10/19/17 13:01 124/70 10/19/17 12:50 51 24 103/60 99 Room Air 10/19/17 12:47 103/60 10/19/17 12:42 51 10/19/17 12:42 49 15 10/19/17 12:12 49 18 10/19/17 11:24 36.5 58 18 111/72 96 Room Air Physical Exam GENERAL: Awake, alert, well-appearing, in no distress HENT: Normocephalic, atraumatic. Oropharynx unremarkable. EYES: Normal conjunctiva. Sclera non-icteric. NECK: Supple. No nuchal rigidity. RESPIRATORY: Clear to auscultation. No wheezes. Normal respiratory effort. CARDIAC: Normal rate. Normal rhythm. Extremities warm and well perfused. GI: Soft, non-distended. No rebound or guarding. Multiple prior well healed abdominal scars. RUQ hepatomegaly with mild to moderate tenderness towards the epigastric area RECTAL: Deferred. MUSCULOSKELETAL: Atraumatic. Chest examination reveals no tenderness. There is no CVA tenderness to palpation. LOWER EXTREMITIES: Calves are equal size bilaterally and non-tender. No edema NEURO: Normal sensorium. No sensory or motor deficits noted. No facial droop. SKIN: Warm and dry. No rash or jaundice noted. Medical Decision & Procedures ER Provider Diagnostic Interpretation: Radiology results as stated below per my review and radiologist interpretation: CT SCAN OF THE ABDOMEN AND PELVIS WITH IV CONTRAST CLINICAL HISTORY: Nausea. Right upper quadrant abdominal pain. COMPARISON STUDY: Abdominal CT dated 11/24/2015. TECHNIQUE: Following the IV administration of 93 cc of Optiray 320, CT scan of the abdomen and pelvis is performed from the lung bases to the proximal femora. Images are reviewed in the axial, sagittal, and coronal planes. IV contrast was administered without complication. A dose lowering technique was utilized adhering to the principles of ALARA. CT DOSE: 538.03 mGy.cm FINDINGS: Lung bases: The heart is normal in size and without pericardial effusion. There are coronary artery calcifications. There is elevation of the right hemidiaphragm with atelectasis in the right middle lobe. No airspace consolidation or pleural effusion is identified. A large calcified granuloma is seen in the right lower lobe. There is a small hiatal hernia. Gynecomastia is noted. Liver: The right lobe of the liver is surgically absent. There is compensatory hypertrophy of the left hepatic lobe. Hepatic attenuation is markedly heterogeneous. Nodularity of the liver suggests changes of cirrhosis. There is no intrahepatic biliary ductal dilatation. The hepatic veins and portal veins are patent. A 2.3 cm cystic focus is again seen within the anterior right lobe. This appears increased likely complex or 11/24/2015. A common bile duct stent is in place. This extends early mid common duct to the duodenum, and is unchanged in position from the 2016 examination. Minimal pneumobilia is noted and suggests patency of the stent. Gallbladder: Surgically absent. Spleen: Normal in size and attenuation. There are numerous calcified splenic granulomas. Pancreas: The pancreas is atrophic and grossly unremarkable. Adrenal glands: Unremarkable. Kidneys: The contrast enhanced kidneys demonstrate cortical atrophy and are without hydronephrosis. The kidneys enhance symmetrically. Abdominal vasculature: The abdominal aorta is normal in course and caliber noting moderate atherosclerotic calcification. Bowel: There is a large hernia identified in the lateral right lower quadrant abdominal wall. This contains loops of nonobstructed small bowel. The small bowel loops within the hernia appear thick-walled and hyperemic, and there are surrounding inflammatory change and fluid. The appearance is highly concerning for developing ischemia. No pneumatosis intestinalis or portal venous gas is seen. No additional similar-appearing bowel loops are identified in the abdomen or pelvis. The appendix is well-visualized and normal. Peritoneum: There is no intraperitoneal free air. A small volume of abdominopelvic ascites is noted. There is a large fat-containing left supraumbilical hernia. This is seen on image #179. Lymphadenopathy: None. Pelvic viscera: The bladder, prostate, and seminal vesicles are normal as visualized. Surgical clips are noted along the spermatic cord bilaterally. Skeletal structures: The skeletal structures are osteopenic. Mild lumbosacral spondylosis is observed. No lytic or blastic lesions are seen. IMPRESSION: 1. There is a hernia identified in the lateral right lower quadrant abdominal wall which contains nonobstructed small bowel loops. 2. The loops of small bowel within the hernia sac appear thick-walled and hyperemic, and there is significant inflammatory change in the surrounding mesentery as well as fluid within the hernia sac. Although this could represent an enteritis, there are no similar-appearing small bowel loops and the appearance is highly concerning for developing ischemia. Surgical consultation is advised. 3. Again seen are postoperative changes from cholecystectomy, right lobe hepatic resection, and common bile duct stenting. Pneumobilia suggests patency of the stent. 4. There is a small volume of abdominopelvic ascites. No intraperitoneal free air is seen. There is no pneumatosis intestinalis or portal venous gas. 5. There is compensatory hypertrophy of the left hepatic lobe. Cirrhotic change is noted. 6. Additional findings as above. Electronically signed by: Warren Pink M.D. 10/19/2017 2:46 PM Laboratory Results 10/19/17 12:40 Red Blood Count 4.13, Mean Corpuscular Volume 98.8, Mean Corpuscular Hemoglobin 33.7, Mean Corpuscular Hemoglobin Concent 34.1, Mean Platelet Volume 10.4, Neutrophils (%) (Auto) 75.3, Lymphocytes (%) (Auto) 10.4, Monocytes (%) (Auto) 11.0, Eosinophils (%) (Auto) 2.4, Basophils (%) (Auto) 0.6, Neutrophils # (Auto ) 5.35, Lymphocytes # (Auto) 0.74, Monocytes # (Auto) 0.78, Eosinophils # (Auto ) 0.17, Basophils # (Auto) 0.04 10/19/17 12:40 Test 10/19/17 12:40 10/19/17 15:06 White Blood Count 7.10 K/uL (4.8-10.8) Red Blood Count 4.13 M/uL (4.7-6.1) Hemoglobin 13.9 g/dL (14.0-18.0) Hematocrit 40.8 % (42-52) Mean Corpuscular Volume 98.8 fL (80-100) Mean Corpuscular Hemoglobin 33.7 pg (25-34) Mean Corpuscular Hemoglobin Concent 34.1 g/dl (32-36) Platelet Count 211 K/uL (130-400) Mean Platelet Volume 10.4 fL (7.4-10.4) Neutrophils (%) (Auto) 75.3 % Lymphocytes (%) (Auto) 10.4 % Monocytes (%) (Auto) 11.0 % Eosinophils (%) (Auto) 2.4 % Basophils (%) (Auto) 0.6 % Neutrophils # (Auto) 5.35 K/uL (1.4-6.5) Lymphocytes # (Auto) 0.74 K/uL (1.2-3.4) Monocytes # (Auto) 0.78 K/uL (0.11-0.59) Eosinophils # (Auto) 0.17 K/uL (0-0.5) Basophils # (Auto) 0.04 K/uL (0-0.2) RDW Standard Deviation 50.3 fL (36.4-46.3) RDW Coefficient of Variation 14.1 % (11.5-14.5) Immature Granulocyte % (Auto) 0.3 % Immature Granulocyte # (Auto) 0.02 K/uL (0.00-0.02) Anion Gap 7.0 mmol/L (3-11) Est Creatinine Clear Calc Drug Dose 71.8 ml/min Estimated GFR () 81.4 Estimated GFR (Non- 70.3 BUN/Creatinine Ratio 13.4 (10-20) Calcium Level 9.2 mg/dl (8.5-10.1) Total Bilirubin 1.0 mg/dl (0.2-1) Direct Bilirubin 0.4 mg/dl (0-0.2) Aspartate Amino Transf (AST/SGOT) 66 U/L (15-37) Alanine Aminotransferase (ALT/SGPT) 61 U/L (12-78) Alkaline Phosphatase 190 U/L (45-117) Troponin I < 0.015 ng/ml (0-0.045) Total Protein 8.6 gm/dl (6.4-8.2) Albumin 3.3 gm/dl (3.4-5.0) Lipase 230 U/L (73-393) Bedside Lactic Acid Venous 1.71 mmol/L (0.90-1.70) Laboratory results reviewed by me Medications Administered Medications (Trade) Dose Ordered Sig/Miguelito Route Start Time Stop Time Status Last Admin Dose Admin Sodium Chloride 1,000 ml @ 999 mls/hr Q1H1M STAT IV 10/19/17 12:25 10/19/17 13:25 DC 10/19/17 12:51 999 MLS/HR Ondansetron HCl (Zofran Inj) 4 mg NOW STAT IV 10/19/17 12:25 10/19/17 12:28 DC 10/19/17 13:54 4 MG Morphine Sulfate (MoRPHine SULFATE INJ) 4 mg NOW STAT IV 10/19/17 12:53 10/19/17 12:54 DC 10/19/17 13:56 4 MG Morphine Sulfate (MoRPHine SULFATE INJ) 4 mg NOW STAT IV 10/19/17 14:32 10/19/17 14:33 DC 10/19/17 14:40 4 MG Ondansetron HCl (Zofran Inj) 4 mg NOW STAT IV 8/11/18 14:44 10/19/17 14:45 DC 10/19/17 15:07 4 MG Sodium Chloride 1,000 ml @ 999 mls/hr Q1H1M ONCE IV 10/19/17 14:59 10/19/17 15:59 DC 10/19/17 15:07 999 MLS/HR Acetaminophen/ Hydrocodone Bitart ([place] 5/325 Tab) 1 tab ONE STAT PO 10/19/17 19:40 10/19/17 19:41 DC 10/19/17 19:45 1 TAB ECG Per My Interpretation Indication: abdominal pain Rate (beats per minute): 48 Rhythm: sinus bradycardia Findings: T-wave inversion (in lead III), other (normal intervals, no ST segment elevation) Comparison ECG Date: 01/02/15 Change: Bradycardic rate and TWI in lead III are new from prior EKG ED Course 1217: The patient was evaluated in room C8. A complete history and physical exam was performed. 1225: Ordered Zofran Inj 4 mg IV, Morphine Sulfate 6 mg IV, Sodium Chloride 1000 ml @ 999 mls/hr IV 1253: Ordered Morphine Sulfate 4 mg IV 1432: Ordered Morphine Sulfate 4 mg IV 1444: Ordered Zofran Inj 4 mg IV 1459: Ordered Sodium Chloride 1000 ml @ 999 mls/hr IV 1455: I checked on the patient at this time. She is still in pain but nausea mildly improved.. I discussed her CT results with him. I am going to try and get a hold of the patients surgeon at [facility]. 1527: Discussed the patient's case with Dr. Danish Delong, [facility] Surgery. He wanted us to ask for the patients to see the patient to determine if he needs to be transferred. 1535: Discussed the patient's case with Dr. Flores, Thoracic Surgery [facility]. He states he wants the ED to call [facility] to discuss the patient's case. 1544: Discussed the patient's case with Dr. Danish Delong, [facility] Surgery. The patient will be evaluated for further treatment and transported via ground to [facility]. 1925: I checked on the patient at this time. He is pain free. I discussed the options with the patient and they will go via private vehicle to [facility] now. Medical Decision Triage Nursing notes reviewed. Differential diagnosis: Etiologies such as appendicitis, diverticulitis, PUD, biliary pathology, UTI, pancreatitis, obstruction, mesenteric ischemia, aortic pathology, infections, inflammatory bowel disease, renal colic, as well as others were entertained. Patient presents with onset this morning of epigastric and right upper quadrant pain with associated nausea. Has vomited. History of significant liver issues currently followed at [facility] on liver transplant list. Otherwise been feeling well recently. No fevers reported. Did move his bowels this morning without any melanotic or bloody stools. Denies change in his abdomen which does have hepatomegaly; however, there is some right upper quadrant epigastric tenderness which is new. CT scan of the abdomen pelvis was completed along with laboratory studies look for any signs of possible hepatitis pancreatitis or intra-abdominal process that could be related to his symptoms. Given some fluid rehydration and antiemetics and pain control. Will discuss with his team at [facility] after this is completed. Doubt obstruction given that he moved his bowels this morning. Does not seem consistent with GI bleed. Labs are grossly unremarkable compared to previous from August. No lactate elevation. CT has some some concerning findings in the right lower for possible ischemia with hyperemia. No pneumatosis. Patient's pain refractory to the medicine here. Discussed with the patient will be to call his surgeons at [facility]. Discussed with them the case via phone. Patient wishes for transfer there for further care. Extensive discussions with MD at [facility] who accepted the emergency department for further evaluation. Unable to reduce the hernia itself fully. Pain has moderated some since arrival. Unfortunately due to transportation issues the patient is unable to be probably transferred via ambulance. Patient's symptoms have significantly improved but still not able to fully reduce the hernia. Doubt jeff bowel ischemia now as pain has abated. During attempted hernia reductions/abdominal exams may have improved blood flow here. Discussed with him options including waiting for the ambulance additional 6 hours or more versus going by private vehicle. Patient's symptoms of moderated and no minimal pain and no nausea. He, after discussion with him and the , are comfortable with private vehicle transfer to the [facility] emergency room to avoid further wait or delay. HE was aware of risks and benefits of this. Medication Reconcilliation Current Medication List: was personally reviewed by me Blood Pressure Screening Patient's blood pressure: Normal blood pressure Blood pressure disposition: Did not require urgent referral Consults Time Called: [phone] Consulting Physician: Dr. Danish Delong, [facility] Surgery Returned Call: 1527 Discussed the patient's case with Dr. Danish Delong, [facility] Surgery. He wanted us to ask for the patients to see the patient to determine if he needs to be transferred. Additional Consults: Time Called: 1527 Consulted Physician: Dr. Flores, Thoracic Surgery [facility] Returned Call: 1535 Additional Comments: Discussed the patient's case with Dr. Flores, Thoracic Surgery [facility]. He states he wants the ED to call [facility] to discuss the patient's case. Time Called: 1535 Consulted Physician: Dr. Danish Delong, [facility] Surgery Returned Call: [phone] Additional Comments: Discussed the patient's case with Dr. Danish Delong, [facility] Surgery. The patient will be evaluated for further treatment and transported via ground to [facility]. Impression Primary Impression: Irreducible ventral hernia Additional Impression: Ischemia, bowel Scribe Attestation The scribe's documentation has been prepared under my direction and personally reviewed by me in its entirety. I confirm that the note above accurately reflects all work, treatment, procedures, and medical decision making performed by me. Departure Information Dispostion Transfer Acute Care Facility ([facility]) Referrals Neelam Cooper C.R.N.P (PCP) Patient Instructions My [facility] Additional Instructions Please proceed to the [facility] emergency department for further evaluation. We discussed the risks and benefits of this. If at any time you have concerns please feel free to represent here or call [phone]. Would recommend following up in [place] to have your surgeons review the imaging and ensure that no further emergent procedure intervention is possible. Given that your symptoms are resolving after evaluation you may even be stable enough to return home. Problem Qualifiers
== END 2017-10-19 19:43 | disposition short-term general hospital (02) ==
LOC: C.EDB 11:13 → C.EDC 19:43
DX: K43.9 Ventral hernia without obstruction or gangrene (principal); K55.059 Acute (reversible) ischemia of intestine, part and extent unspecified; E11.9 Type 2 diabetes mellitus without complications; E78.5 Hyperlipidemia, unspecified; E03.9 Hypothyroidism, unspecified; Z79.899 Other long term (current) drug therapy; Z88.8 Allergy status to other drugs, medicaments and biological substances

== ENCOUNTER 2020-07-03 12:58 | Inpatient (IN) ==
[2020-07-03] MEDS ORDERED: CEFEPIME 2,000 MG/20 ML VIAL IV STA (13:49)
[2020-07-03] MEDS ORDERED: SODIUM CHLORIDE 0.9% 1000ML 1,000 ML IV SCH (14:00)
--- NOTE | 2020-07-03 14:08 | Emergency Department Note ---
Impression & Plan Sepsis, Tachycardia, Fever, Flu-like symptoms ED Provider Note NAME: LAKISHA WERNER AGE: 64 SEX: M : 1955 ARRIVES VIA: Walk-In INFORMANT: [Patient][] ED PROVIDER(S): [Warren Kebede MD] CHIEF COMPLAINT: Fever HISTORY OF PRESENT ILLNESS: The patient is a 64-year-old male who states that today, several hours ago, he began noticing chills and body aches. He noticed a temperature. His temperature got up to about 101. He did take an extra strength Tylenol prior to arrival. There has been no cough or congestion. He has not had vomiting or diarrhea. No abdominal pain or chest pain. He states he feels almost as if he is coming down with a cold. He has felt some postnasal drip. No real sore throat though, no stuffy nose. The patient admits to feeling weak. The patient has not been septic before. He has not been vaccinated for Covid but is scheduled in the very near future. No obvious Covid exposures. REVIEW OF SYSTEMS: See HPI for pertinent positives and negatives. A total of ten systems were reviewed and were otherwise negative. PMHx/PSHx: See Below SOCIAL HISTORY: See Below. PHYSICAL EXAM: GENERAL: Patient is in no acute distress. HEENT: No acute trauma, normocephalic atraumatic, mucous membranes moist, no nasal congestion, no scleral icterus. NECK: No stridor, no adenopathy, no meningismus, trachea is midline. LUNGS: Clear to auscultation bilaterally, no wheeze, no rhonchi, breath sounds equal. HEART: Tachycardic, regular rhythm, no murmurs. ABDOMEN: Soft, nontender, bowel sounds positive, no hernias, no peritonitis. EXTREMITIES: No cyanosis or edema, full range of motion of all the joints without pain or difficulty, no signs for acute trauma. NEUROLOGIC: Oriented x 3, no acute motor or sensory deficits, no focal weakness. SKIN: No rash, no jaundice, no diaphoresis. DIFFERENTIAL DIAGNOSIS: Sepsis, UTI, pneumonia, metabolic abnormality, electrolyte abnormalities, COVID- 19, influenza, cardiac sources, cellulitis, UTI, bacteremia, intracerebral event, toxicologic etiology, neurologic event, as well as other pathologies. EMERGENCY DEPARTMENT COURSE/PROCEDURES: ECG: Indication was tachycardia. The ECG shows a sinus tachycardia with some nonspecific ST change. The rate is 129. There is an old inferior infarct. There is no ST elevation, no PVCs. The QTc is 416. Continuous Cardiac Monitoring: An order was placed for continuous cardiac monitoring. The monitor shows a rate of 128 with sinus tachycardia. Critical Care Note: I have personally spent 51 minutes of critical care time in the direct management of this patient. This includes bedside care, interpretation of diagnostic studies, and testing, discussion with consultants, patient, and family members, and other required patient management activities. This 51 minutes is in excess of all separately billable procedures. MEDICAL DECISION MAKING: There is a mild leukocytosis, this certainly could be consistent with infection. There is a normal hemoglobin and platelet count. No coagulopathy. No significant electrolyte abnormality or kidney failure. Lactic acid level was elevated at over 3, this is consistent with infection. There were some liver enzyme elevations-the patient does have a history of cirrhosis. ECG shows a sinus tachycardia, no acute ischemia. Cardiac enzyme testing x1 is not consistent with acute cardiac injury. Urinalysis is not consistent with infection. Covid and influenza testing returned negative. Chest x-ray did not show pneumonia or CHF. On exam, there was no cellulitis. The patient was tachycardic, he did not appear toxic. The patient was given IV saline, 2 L. He received IV cefepime as empiric antibiotic coverage. He had taken Tylenol for fever prior to arrival. The patient meets criteria for sepsis. The source at this point is not clear. He has had sepsis in the past. Hospitalization is warranted. I spoke to the patient and case management. The on-call hospitalist was consulted. Past Med/Surg History Medical History Anemia Cirrhosis of liver Depression DM type 2 (diabetes mellitus, type 2) IDDM Esophageal varices hx banding GERD (gastroesophageal reflux disease) GI bleed hx History of ascites Hyperlipidemia Hypertension hx Hypothyroidism Peripheral neuropathy Post traumatic stress disorder Surgical History History of abdominal paracentesis multiple (last 2 years ago) History of cholecystectomy History of colonoscopy History of ERCP History of esophagogastroduodenoscopy (EGD) History of herniorrhaphy WITH MESH-2018 History of surgery of liver Hepatic lobectomy (benign tumor) History of tooth extraction Hx of hand surgery RT HAND/ARM SURGERY (METAL PLATE D/T FX) Hx of vasectomy S/P debridement ABDOMINAL WOUND 2017 Family History Mother Diabetes Grandmother No problems noted. Grandmother (Maternal) Diabetes Family/Other Heart disease Cancer Hypertension Other No family history of adverse response to anesthesia Denies family history of Ovarian cancer Prostate cancer Myocardial infarction Breast cancer Colorectal cancer Social History Smoking Status: Former smoker Cigarettes Per Day: QUIT 35 YEARs ago; Smoking End Date: 1990; Second Hand Exposure: No; Do You Dip or Chew Tobacco: Yes; Tobacco Cessation Education Requested by Patient: No Hx Alcohol Use: No Hx Substance Use: No Preferred Language: Luxembourgish Communication Ability: Effective Casino Surveillance Officer Required: No Beliefs That Will Affect Care: None Current Living Situation: Spouse Other Information That Helps Us Care for You: No Feels Safe at Home: Yes Safety Concerns: Feels Safe At This Time Dental Care, Regularly: Yes Seatbelt Use: always Sunscreen Use: No Assistive Devices: Denture - Upper and Denture - Lower Assistive Devices Comment: Sensor for Continuious Glucose monitor Allergies Allergies Allergy/AdvReac Type Severity Reaction Status Date / Time exenatide [From Byetta] AdvReac Intermediate Diarrhea Verified 07/03/20 15:06 Home Meds Home Medications Medication Instructions Recorded Confirmed cyanocobalamin (vitamin B-12) 1,000 mcg PO QAM 11/25/18 07/03/20 1,000 mcg capsule calcium carbonate [Calcium 600] 600 mg PO BID 12/25/18 07/03/20 cholecalciferol (vitamin D3) 1,000 unit PO BID 12/25/18 07/03/20 [Vitamin D3] cannabidiol (CBD) extract 1 dose PO BID 01/09/19 07/03/20 bupropion HCl 150 mg PO BID 05/09/20 07/03/20 furosemide 20 mg PO QAM 05/09/20 07/03/20 insulin aspart U-100 [Novolog 1 sliding scale dose SUBCUT 05/09/20 07/03/20 U-100 Insulin aspart] USEASDIRECTD metformin 1,000 mg PO BID 05/09/20 07/03/20 omeprazole 40 mg PO BID 05/09/20 07/03/20 spironolactone 50 mg PO QAM 05/09/20 07/03/20 acetaminophen [Tylenol Extra 500 mg PO Q6H PRN 07/03/20 07/03/20 Strength] Previous Rx's Medication Instructions Recorded biotin 10 mg tablet 10 mg PO QAM #30 tab 08/11/18 blood sugar diagnostic #10 ea 08/11/18 ferrous sulfate 325 mg (65 mg 325 mg PO BID #60 tab 08/11/18 iron) tablet ondansetron 4 mg disintegrating See Rx Instructions .ROUTE 08/07/19 tablet .COMPLEX #30 tab levothyroxine 175 mcg tablet 175 mcg PO QAM #90 tab 09/14/19 simvastatin 20 mg tablet 20 mg PO HS #90 tab 10/26/19 insulin glargine 100 unit/mL (3 15 unit SUBCUT QAM #15 ml 12/01/19 mL) subcutaneous pen pen needle, diabetic 32 gauge x #100 ea 06/20/20" Results & Data (ED) Vital Signs Vital Signs - 24 hr 07/03/20 13:09 07/03/20 13:30 07/03/20 13:31 Temperature 36.7 C Temperature Source Oral Pulse Rate 141 H 125 H 126 H Pulse Rate from SpO2 Sensor 126 H 127 H Pulse Rhythm Regular Pulse Strength Normal Respiratory Rate 20 19 16 Respiratory Effort / Characteristics Non-Labored Respiratory Depth Normal Respiratory Pattern Regular Blood Pressure 117/77 131/82 Blood Pressure Mean 90 98 Blood Pressure Position Sitting Pulse Oximetry 96 96 96 Oxygen Delivery Method Room Air Sepsis Recent Fever Within 48 Hours No Sepsis New/Unexplained Change in Mental Status No Sepsis Action Taken by Nursing No Action Required 07/03/20 13:40 07/03/20 14:00 07/03/20 14:01 Temperature Temperature Source Pulse Rate 128 H 128 H 127 H Pulse Rate from SpO2 Sensor Pulse Rhythm Pulse Strength Respiratory Rate 20 22 17 Respiratory Effort / Characteristics Respiratory Depth Respiratory Pattern Blood Pressure 126/94 Blood Pressure Mean 104 Blood Pressure Position Pulse Oximetry Oxygen Delivery Method Sepsis Recent Fever Within 48 Hours Sepsis New/Unexplained Change in Mental Status Sepsis Action Taken by Nursing 07/03/20 14:20 07/03/20 14:30 07/03/20 14:40 Temperature Temperature Source Pulse Rate 126 H 127 H 128 H Pulse Rate from SpO2 Sensor Pulse Rhythm Pulse Strength Respiratory Rate 24 27 H 27 H Respiratory Effort / Characteristics Respiratory Depth Respiratory Pattern Blood Pressure 104/78 Blood Pressure Mean 86 Blood Pressure Position Pulse Oximetry Oxygen Delivery Method Sepsis Recent Fever Within 48 Hours Sepsis New/Unexplained Change in Mental Status Sepsis Action Taken by Nursing 07/03/20 14:45 07/03/20 15:00 07/03/20 15:08 Temperature Temperature Source Pulse Rate 124 H 124 H Pulse Rate from SpO2 Sensor 124 H 125 H Pulse Rhythm Pulse Strength Respiratory Rate 18 29 H Respiratory Effort / Characteristics Respiratory Depth Respiratory Pattern Blood Pressure 105/72 Blood Pressure Mean 83 Blood Pressure Position Pulse Oximetry 95 96 95 Oxygen Delivery Method Room Air Sepsis Recent Fever Within 48 Hours Sepsis New/Unexplained Change in Mental Status Sepsis Action Taken by Nursing 07/03/20 15:20 07/03/20 15:30 07/03/20 15:40 Temperature Temperature Source Pulse Rate 122 H 120 H 122 H Pulse Rate from SpO2 Sensor 123 H 121 H 122 H Pulse Rhythm Pulse Strength Respiratory Rate 22 21 25 H Respiratory Effort / Characteristics Respiratory Depth Respiratory Pattern Blood Pressure 104/75 Blood Pressure Mean 84 Blood Pressure Position Pulse Oximetry 96 96 95 Oxygen Delivery Method Sepsis Recent Fever Within 48 Hours Sepsis New/Unexplained Change in Mental Status Sepsis Action Taken by Nursing 07/03/20 15:51 07/03/20 16:00 07/03/20 16:32 Temperature 37.4 C Temperature Source Oral Pulse Rate 122 H Pulse Rate from SpO2 Sensor 122 H 112 H Pulse Rhythm Pulse Strength Respiratory Rate 23 Respiratory Effort / Characteristics Respiratory Depth Respiratory Pattern Blood Pressure 112/74 Blood Pressure Mean 86 Blood Pressure Position Pulse Oximetry 96 99 Oxygen Delivery Method Sepsis Recent Fever Within 48 Hours Sepsis New/Unexplained Change in Mental Status Sepsis Action Taken by Nursing 07/03/20 16:40 07/03/20 17:00 07/03/20 17:06 Temperature Temperature Source Pulse Rate 114 H 116 H Pulse Rate from SpO2 Sensor 111 H 114 H 115 H Pulse Rhythm Pulse Strength Respiratory Rate 22 21 Respiratory Effort / Characteristics Respiratory Depth Respiratory Pattern Blood Pressure 81/60 L 107/58 L Blood Pressure Mean 67 74 Blood Pressure Position Pulse Oximetry 99 97 97 Oxygen Delivery Method Sepsis Recent Fever Within 48 Hours Sepsis New/Unexplained Change in Mental Status Sepsis Action Taken by Usp Medications Current Medication List: was personally reviewed by me Laboratory Data Attestation: I reviewed the patient's lab results. Result diagrams: 07/03/20 14:08 07/03/20 14:08 Lab Results 07/03/20 07/03/20 07/03/20 Range/Units 14:08 14:08 14:08 WBC 12.16 H (4.8-10.8) K/uL RBC 4.46 L (4.7-6.1) M/uL Hgb 14.9 (14.0-18.0) g/dL Hct 42.6 (42-52) % MCV 95.5 (80-100) fL MCH 33.4 (25-34) pg MCHC 35.0 (32-36) g/dL RDW Std Deviation 51.5 H (36.4-46.3) fL RDW Coeff of Debby 14.7 H (11.5-14.5) % Plt Count 196 (130-400) K/uL MPV 10.6 H (7.4-10.4) fL Immature Gran % (Auto) 0.2 % Neut % (Auto) 84.9 % Lymph % (Auto) 6.3 % [place] % (Auto) 8.1 % Eos % (Auto) 0.3 % Baso % (Auto) 0.2 % Neut # (Auto) 10.32 H (1.4-6.5) K/uL Lymph # (Auto) 0.77 L (1.2-3.4) K/uL [place] # (Auto) 0.99 H (0.11-0.59) K/uL Eos # (Auto) 0.04 (0-0.5) K/uL Baso # (Auto) 0.02 (0-0.2) K/uL Immature Gran # (Auto) 0.02 (0.00-0.02) K/uL PT 11.3 (9.0-12.0) Seconds INR 1.1 (0.9-1.1) APTT 24.9 (21.0-31.0) Seconds PTT Ratio 0.9 Sodium 140 (136-145) mmol/L Potassium 4.2 (3.5-5.1) mmol/L Chloride 106 (98-107) mmol/L Carbon Dioxide 24 (21-32) mmol/L Anion Gap 10.0 (3-11) BUN 17 (7-18) mg/dl Creatinine 1.31 (0.6-1.4) mg/dl Est Cr Clr Drug Dosing 57.7 ml/min Est GFR ( Amer) 66.7 Est GFR (Non-Af Amer) 57.5 BUN/Creatinine Ratio 12.9 (10-20) Glucose 142 H (70-99) mg/dl Lactate (0.4-2.0) mmol/L Calcium 9.4 (8.5-10.1) mg/dl Magnesium 1.9 (1.8-2.4) mg/dl Total Bilirubin 2.9 H (0.2-1) mg/dl AST 195 H (15-37) U/L ALT 132 H (12-78) U/L Alkaline Phosphatase 144 H (45-117) U/L Troponin I < 0.015 (0-0.045) ng/ml Total Protein 8.4 H (6.4-8.2) gm/dl Albumin 3.4 (3.4-5.0) gm/dl Globulin 5.0 H (2.5-4.0) gm/dl Albumin/Globulin Ratio 0.7 L (0.9-2) Procalcitonin (0-0.5) ng/ml Urine Color Urine Appearance (Clear) Urine pH (4.5-7.5) Ur Specific [place] (1.000-1.030) Urine Protein (Negative) Urine Glucose (UA) (Negative) Urine Ketones (Negative) Urine Blood (Negative) Urine Nitrite (Negative) Urine Bilirubin (Negative) Urine Urobilinogen (Negative) Ur Leukocyte Esterase (Negative) COVID-19 Eval Order SARS-CoV-2 (PCR) (Negative) Hep Bs Antigen (Neg) Influenza Type A (PCR) (Neg) Influenza Type B (PCR) (Neg) RSV (RT-PCR) (Neg) 07/03/20 07/03/20 07/03/20 Range/Units 14:08 14:08 14:08 WBC (4.8-10.8) K/uL RBC (4.7-6.1) M/uL Hgb (14.0-18.0) g/dL Hct (42-52) % MCV (80-100) fL MCH (25-34) pg MCHC (32-36) g/dL RDW Std Deviation (36.4-46.3) fL RDW Coeff of Debby (11.5-14.5) % Plt Count (130-400) K/uL MPV (7.4-10.4) fL Immature Gran % (Auto) % Neut % (Auto) % Lymph % (Auto) % [place] % (Auto) % Eos % (Auto) % Baso % (Auto) % Neut # (Auto) (1.4-6.5) K/uL Lymph # (Auto) (1.2-3.4) K/uL [place] # (Auto) (0.11-0.59) K/uL Eos # (Auto) (0-0.5) K/uL Baso # (Auto) (0-0.2) K/uL Immature Gran # (Auto) (0.00-0.02) K/uL PT (9.0-12.0) Seconds INR (0.9-1.1) APTT (21.0-31.0) Seconds PTT Ratio Sodium (136-145) mmol/L Potassium (3.5-5.1) mmol/L Chloride (98-107) mmol/L Carbon Dioxide (21-32) mmol/L Anion Gap (3-11) BUN (7-18) mg/dl Creatinine (0.6-1.4) mg/dl Est Cr Clr Drug Dosing ml/min Est GFR ( Amer) Est GFR (Non-Af Amer) BUN/Creatinine Ratio (10-20) Glucose (70-99) mg/dl Lactate 3.3 H* (0.4-2.0) mmol/L Calcium (8.5-10.1) mg/dl Magnesium (1.8-2.4) mg/dl Total Bilirubin (0.2-1) mg/dl AST (15-37) U/L ALT (12-78) U/L Alkaline Phosphatase (45-117) U/L Troponin I (0-0.045) ng/ml Total Protein (6.4-8.2) gm/dl Albumin (3.4-5.0) gm/dl Globulin (2.5-4.0) gm/dl Albumin/Globulin Ratio (0.9-2) Procalcitonin 0.44 (0-0.5) ng/ml Urine Color Urine Appearance (Clear) Urine pH (4.5-7.5) Ur Specific [place] (1.000-1.030) Urine Protein (Negative) Urine Glucose (UA) (Negative) Urine Ketones (Negative) Urine Blood (Negative) Urine Nitrite (Negative) Urine Bilirubin (Negative) Urine Urobilinogen (Negative) Ur Leukocyte Esterase (Negative) COVID-19 Eval Order SARS-CoV-2 (PCR) (Negative) Hep Bs Antigen Neg (Neg) Influenza Type A (PCR) (Neg) Influenza Type B (PCR) (Neg) RSV (RT-PCR) (Neg) 07/03/20 07/03/20 07/03/20 Range/Units 14:50 14:50 15:05 WBC (4.8-10.8) K/uL RBC (4.7-6.1) M/uL Hgb (14.0-18.0) g/dL Hct (42-52) % MCV (80-100) fL MCH (25-34) pg MCHC (32-36) g/dL RDW Std Deviation (36.4-46.3) fL RDW Coeff of Debby (11.5-14.5) % Plt Count (130-400) K/uL MPV (7.4-10.4) fL Immature Gran % (Auto) % Neut % (Auto) % Lymph % (Auto) % [place] % (Auto) % Eos % (Auto) % Baso % (Auto) % Neut # (Auto) (1.4-6.5) K/uL Lymph # (Auto) (1.2-3.4) K/uL [place] # (Auto) (0.11-0.59) K/uL Eos # (Auto) (0-0.5) K/uL Baso # (Auto) (0-0.2) K/uL Immature Gran # (Auto) (0.00-0.02) K/uL PT (9.0-12.0) Seconds INR (0.9-1.1) APTT (21.0-31.0) Seconds PTT Ratio Sodium (136-145) mmol/L Potassium (3.5-5.1) mmol/L Chloride (98-107) mmol/L Carbon Dioxide (21-32) mmol/L Anion Gap (3-11) BUN (7-18) mg/dl Creatinine (0.6-1.4) mg/dl Est Cr Clr Drug Dosing ml/min Est GFR ( Amer) Est GFR (Non-Af Amer) BUN/Creatinine Ratio (10-20) Glucose (70-99) mg/dl Lactate (0.4-2.0) mmol/L Calcium (8.5-10.1) mg/dl Magnesium (1.8-2.4) mg/dl Total Bilirubin (0.2-1) mg/dl AST (15-37) U/L ALT (12-78) U/L Alkaline Phosphatase (45-117) U/L Troponin I (0-0.045) ng/ml Total Protein (6.4-8.2) gm/dl Albumin (3.4-5.0) gm/dl Globulin (2.5-4.0) gm/dl Albumin/Globulin Ratio (0.9-2) Procalcitonin (0-0.5) ng/ml Urine Color Yellow Urine Appearance Clear (Clear) Urine pH 5.0 (4.5-7.5) Ur Specific [place] 1.013 (1.000-1.030) Urine Protein Negative (Negative) Urine Glucose (UA) Negative (Negative) Urine Ketones Negative (Negative) Urine Blood Negative (Negative) Urine Nitrite Negative (Negative) Urine Bilirubin Negative (Negative) Urine Urobilinogen Negative (Negative) Ur Leukocyte Esterase Negative (Negative) COVID-19 Eval Order [facility]sv at [facility] SARS-CoV-2 (PCR) NEGATIVE (Negative) Hep Bs Antigen (Neg) Influenza Type A (PCR) Negative (Neg) Influenza Type B (PCR) Negative (Neg) RSV (RT-PCR) Negative (Neg) 07/03/20 Range/Units 15:55 WBC (4.8-10.8) K/uL RBC (4.7-6.1) M/uL Hgb (14.0-18.0) g/dL Hct (42-52) % MCV (80-100) fL MCH (25-34) pg MCHC (32-36) g/dL RDW Std Deviation (36.4-46.3) fL RDW Coeff of Debby (11.5-14.5) % Plt Count (130-400) K/uL MPV (7.4-10.4) fL Immature Gran % (Auto) % Neut % (Auto) % Lymph % (Auto) % [place] % (Auto) % Eos % (Auto) % Baso % (Auto) % Neut # (Auto) (1.4-6.5) K/uL Lymph # (Auto) (1.2-3.4) K/uL [place] # (Auto) (0.11-0.59) K/uL Eos # (Auto) (0-0.5) K/uL Baso # (Auto) (0-0.2) K/uL Immature Gran # (Auto) (0.00-0.02) K/uL PT (9.0-12.0) Seconds INR (0.9-1.1) APTT (21.0-31.0) Seconds PTT Ratio Sodium (136-145) mmol/L Potassium (3.5-5.1) mmol/L Chloride (98-107) mmol/L Carbon Dioxide (21-32) mmol/L Anion Gap (3-11) BUN (7-18) mg/dl Creatinine (0.6-1.4) mg/dl Est Cr Clr Drug Dosing ml/min Est GFR ( Amer) Est GFR (Non-Af Amer) BUN/Creatinine Ratio (10-20) Glucose (70-99) mg/dl Lactate 2.7 H* (0.4-2.0) mmol/L Calcium (8.5-10.1) mg/dl Magnesium (1.8-2.4) mg/dl Total Bilirubin (0.2-1) mg/dl AST (15-37) U/L ALT (12-78) U/L Alkaline Phosphatase (45-117) U/L Troponin I (0-0.045) ng/ml Total Protein (6.4-8.2) gm/dl Albumin (3.4-5.0) gm/dl Globulin (2.5-4.0) gm/dl Albumin/Globulin Ratio (0.9-2) Procalcitonin (0-0.5) ng/ml Urine Color Urine Appearance (Clear) Urine pH (4.5-7.5) Ur Specific [place] (1.000-1.030) Urine Protein (Negative) Urine Glucose (UA) (Negative) Urine Ketones (Negative) Urine Blood (Negative) Urine Nitrite (Negative) Urine Bilirubin (Negative) Urine Urobilinogen (Negative) Ur Leukocyte Esterase (Negative) COVID-19 Eval Order SARS-CoV-2 (PCR) (Negative) Hep Bs Antigen (Neg) Influenza Type A (PCR) (Neg) Influenza Type B (PCR) (Neg) RSV (RT-PCR) (Neg) Administered Medications Discontinued Medications Sodium Chloride (Nss 1000ml) 1,000 mls @ 999 mls/hr IV .Q1H1M [id number] Stop: 07/03/20 15:00 Last Infusion: 07/03/20 15:47 Dose: 0 mls/hr Documented by: [id number] Infusion: 07/03/20 15:42 Dose: 0 mls/hr Documented by: [id number] Admin: 07/03/20 14:24 Dose: 999 mls/hr Documented by: [id number] Cefepime HCl (Maxipime) 2,000 mg in 20 mls @ 5 mls/min IV NOW STA; Protocol Stop: 07/03/20 13:52 Last Admin: 07/03/20 14:25 Dose: 5 mls/min Documented by: [id number] Sodium Chloride (Nss 1000ml) 1,000 mls @ 999 mls/hr IV .Q1H1M ONE Stop: 07/03/20 16:04 Last Infusion: 07/03/20 17:53 Dose: 0 mls/hr Documented by: [id number] Admin: 07/03/20 15:47 Dose: 999 mls/hr Documented by: [id number] Ioversol (Optiray 300 100ml) 84 ml IV ONCE ONE Stop: 07/03/20 16:27 Last Admin: 07/03/20 16:27 Dose: 84 ml Documented by: [id number] Imaging Data Radiologist's Impression: Chest X-Ray 07/03/20 13:49 XR chest 1V portable CLINICAL HISTORY: SEPSIS COMPARISON STUDY: Chest radiograph January 02, 2015. FINDINGS: Lung volumes are normal. Lungs are clear. There is no pneumothorax or pleural effusion. Cardiac size is normal. Mediastinal contours are normal. There is no evidence for pulmonary edema. Calcified right lower lung nodule is benign. IMPRESSION: No acute cardiopulmonary findings. ACT 112: Negative or not required by law. Electronically signed by: Jalil Abraham M.D. 07/03/2020 2:[address] 07/03/20 16:00 CT abdomen w IV con CLINICAL HISTORY: elevated LFT's ALk phos, tachycardic with fever. Cirrhosis. COMPARISON STUDY: MRI of the abdomen June 20, 2020. CT of the abdomen and pelvis February 26, 2018. TECHNIQUE: Axial images of the abdomen were obtained following intravenous injection of 84 cc of Optiray 300. Sagittal and coronal reconstructions were viewed. Automated exposure control was utilized for the study. A dose lowering technique was utilized adhering to the principles of ALARA FINDINGS: Lung bases are unremarkable. Calcified right hilar lymph nodes are incidentally noted. There is bilateral gynecomastia. No pneumatosis, free air or portal venous gas within the abdomen is noted. There is trace abdominal fluid. Mesenteric infiltration and collateral are noted. The findings are probably chronic. Colonic thickening has been shown on multiple prior exams. A biliary stent is in place. No biliary or pancreatic ductal dilatation is present. Right hepatic lobe resection is noted. Postoperative appearance is unchanged. A 2.3 cm hypodense focus along the resection margin is unchanged since CT of February 26, 2018. Therefore, this is benign. There are no suspicious hepatic lesions. The liver is cirrhotic. The main and left portal veins are patent. The superior mesenteric vein is patent. Mildly enlarged abdominal lymph nodes are unchanged from earlier exams. There is no hydronephrosis. Calcified granulomas within the spleen are noted. Adrenal glands are unremarkable. There are no peripancreatic fluid collections. IMPRESSION: 1. Cirrhosis status post right hepatic lobe resection. No suspicious lesions. Abdominal collaterals consistent with portal hypertension, unchanged. Patent main and left portal veins. 2. Biliary stent in place. No biliary ductal dilatation. 3. No significant change in colonic wall thickening which is likely related to portal hypertension. Trace ascites. 4. No significant change in appearance of the abdomen from earlier exams. ACT 112: Negative or not required by law. Electronically signed by: Jalil Abraham M.D. 07/03/2020 5:08 PM Discharge Plan Visit Data Chief Complaint: Fever Stated Complaint: TIRED, ACHY, FEVER, NAUSEA, HEADACHE ED Provider: Warren Kebede Discharge Problem: Sepsis, Tachycardia, Fever, Flu-like symptoms Patient Disposition: Admitted As Inpatient Condition: Fair Discharge Instructions Interventions: ED Discharge Assessment Last Done: 07/03/20 18:35 Discharge Problem: Sepsis Qualifiers: Sepsis type: sepsis due to unspecified organism Sepsis acute organ dysfunction status: without acute organ dysfunction Qualified Code(s): A41.9 - Sepsis, unspecified organism Fever Qualifiers: Fever type: unspecified Qualified Code(s): R50.9 - Fever, unspecified
[2020-07-03 14:21] LABS: Basophils # (auto) 0.02 K/uL (0-0.2); Basophils % (auto) 0.2 %; Eosinophils # (auto) 0.04 K/uL (0-0.5); Eosinophils % (auto) 0.3 %; Hematocrit (blood only) 42.6 % (42-52); Hemoglobin 14.9 g/dL (14.0-18.0); Immature Granulocytes # (auto) 0.02 K/uL (0.00-0.02); Immature Granulocytes % (auto) 0.2 %; Lymphocytes # (auto) 0.77 K/uL (1.2-3.4); Lymphocytes % (auto) 6.3 %; Mean Corpuscular Hemoglobin 33.4 pg (25-34); Mean Corpuscular Volume 95.5 fL (80-100); Mean Platelet Volume 10.6 fL (7.4-10.4); Monocytes # (auto) 0.99 K/uL (0.11-0.59); Monocytes % (auto) 8.1 %; Neutrophils # (auto) 10.32 K/uL (1.4-6.5); Neutrophils % (auto) 84.9 %; Platelet Count 196 K/uL (130-400); RDW Coefficient of Variation 14.7 % (11.5-14.5); RDW Standard Deviation 51.5 fL (36.4-46.3); Red Blood Count 4.46 M/uL (4.7-6.1); White Blood Count 12.16 K/uL (4.8-10.8)
[2020-07-03 14:32] LABS: INR 1.1 (0.9-1.1); Partial Thromboplastin Ratio 0.9; Partial Thromboplastin Time 24.9 Seconds (21.0-31.0); Prothrombin Time 11.3 Seconds (9.0-12.0)
--- NOTE | 2020-07-03 14:42 | XRay Report ---
XR chest 1V portable CLINICAL HISTORY: SEPSIS COMPARISON STUDY: Chest radiograph January 02, 2015. FINDINGS: Lung volumes are normal. Lungs are clear. There is no pneumothorax or pleural effusion. Car diac size is normal. Mediastinal contours are normal. There is no evidence for pulmonary edema. Calci fied right lower lung nodule is benign. IMPRESSION: No acute cardiopulmonary findings. ACT 112: Negative or not required by law. Electronically signed by: Jalil Abraham M.D. 07/03/2020 2:40 PM
[2020-07-03 14:46] LABS: Alanine Aminotransferase 132 U/L (12-78); Albumin Level 3.4 gm/dl (3.4-5.0); Aspartate Aminotransferase 195 U/L (15-37); BUN Creatinine Ratio 12.9 (10-20); Blood Urea Nitrogen 17 mg/dl (7-18); Calcium 9.4 mg/dl (8.5-10.1); Carbon Dioxide 24 mmol/L (21-32); Chloride 106 mmol/L (98-107); Creatinine Clr Calc Pharmacy 57.7 ml/min; Est GFR (African American) 66.7; Est GFR (Non-African American) 57.5; Glucose 142 mg/dl (70-99); Magnesium 1.9 mg/dl (1.8-2.4); Potassium 4.2 mmol/L (3.5-5.1); Sodium 140 mmol/L (136-145)
[2020-07-03 14:51] LABS: Albumin Globulin Ratio 0.7 (0.9-2); Alkaline Phosphatase 144 U/L (45-117); Bilirubin,Total 2.9 mg/dl (0.2-1); Total Protein 8.4 gm/dl (6.4-8.2); Troponin I < 0.015 ng/ml (0-0.045)
[2020-07-03] MEDS ORDERED: SODIUM CHLORIDE 0.9% 1000ML 1,000 ML IV ONE (15:04)
[2020-07-03 15:20] LABS: Appearance Urine Clear (Clear); Bilirubin Urine Negative (Negative); Blood Urine Negative (Negative); Color Urine Yellow; Glucose Urine UA Negative (Negative); Ketones Urine Negative (Negative); Leukocyte Esterase Urine Negative (Negative); Nitrite Urine Negative (Negative); Protein Urine Negative (Negative); Specific Gravity Urine 1.013 (1.000-1.030); Urobilinogen Urine Negative (Negative)
[2020-07-03 15:43] LABS: Influenza A virus by PCR Negative (Neg); Influenza B virus by PCR Negative (Neg); RSV by PCR Negative (Neg); SARS CoV2 RNA(COVID-19) InHosp NEGATIVE (Negative)
[2020-07-03] MEDS ORDERED: OPTIRAY 300 100mL IV ONE (16:26)
--- NOTE | 2020-07-03 17:09 | CT Scan Report ---
CT abdomen w IV con CLINICAL HISTORY: elevated LFT's ALk phos, tachycardic with fever. Cirrhosis. COMPARISON STUDY: MRI of the abdomen June 20, 2020. CT of the abdomen and pelvis February 26, 2018. TECHNIQUE: Axial images of the abdomen were obtained following intravenous injection of 84 cc of Opti ray 300. Sagittal and coronal reconstructions were viewed. Automated exposure control was utilized fo r the study. A dose lowering technique was utilized adhering to the principles of ALARA FINDINGS: Lung bases are unremarkable. Calcified right hilar lymph nodes are incidentally noted. Ther e is bilateral gynecomastia. No pneumatosis, free air or portal venous gas within the abdomen is note d. There is trace abdominal fluid. Mesenteric infiltration and collateral are noted. The findings are probably chronic. Colonic thickening has been shown on multiple prior exams. A biliary stent is in p lace. No biliary or pancreatic ductal dilatation is present. Right hepatic lobe resection is noted. P ostoperative appearance is unchanged. A 2.3 cm hypodense focus along the resection margin is unchange d since CT of February 26, 2018. Therefore, this is benign. There are no suspicious hepatic lesions. The liver is cirrhotic. The main and left portal veins are patent. The superior mesenteric vein is pa tent. Mildly enlarged abdominal lymph nodes are unchanged from earlier exams. There is no hydronephro sis. Calcified granulomas within the spleen are noted. Adrenal glands are unremarkable. There are no peripancreatic fluid collections. IMPRESSION: 1. Cirrhosis status post right hepatic lobe resection. No suspicious lesions. Abdominal collaterals c onsistent with portal hypertension, unchanged. Patent main and left portal veins. 2. Biliary stent in place. No biliary ductal dilatation. 3. No significant change in colonic wall thickening which is likely related to portal hypertension. T race ascites. 4. No significant change in appearance of the abdomen from earlier exams. ACT 112: Negative or not required by law. Electronically signed by: Jalil Abraham M.D. 07/03/2020 5:08 PM
--- NOTE | 2020-07-03 17:26 | History & Physical Report ---
Date of Service July 03, 2020 Assessment & Plan (1) Leukocytosis: COVID negative, flu, RSV negative SIRS-3, qSOFA- 1, PCT 0.44, NLR 7:1, Lactate 3.3--->2.7 CXR clear, CT scan of abdomen clear - Technically meets sepsis, but is normally tachycardic - Organ dysfunction- biliary/liver- AST 195 (38-50), ALT- 132 (40-50), ALK po4 144 (90-130), Tbili 2.9 (0.5-0.8) - Possibly could be acute phase reactants - Blood cultures pending - Urine negative - Non specific physical exam for other infective sources - Continue cefepime 2g q12 (2) Abnormal laboratory test: As above- follow - Patient has not started any new medications or supplements, no ETOH, has not changed diet - NPO after midnight (3) Cirrhosis of liver: As per HIP- still has miliary stent- 2013- - Stent stenosis ? - GI consulted - Liver enzymes were normal in April - No juandice - MELD now 14 with increased tbili - coagulation remains normal (4) Esophageal varices: No acute changes- EGD over the years, they remain grade I (5) Hypothyroidism: TSH in morning - Continue synthroid- no acute needs (6) GERD (gastroesophageal reflux disease): Continue omeprazole 40 mg (7) CKD (chronic kidney disease), stage III: No acute needs, no evidence of organ dysfunction- - resuscitated with 0.9% saline in the ER prior to evaluation - LR at 100 ml for one liter overnight - CTA of abdomen 07/03/20 - Avoid nephrotoxic medications, if needed minimize exposure time (8) Portal hypertension: No acute evidence of worsening, no ascites - continue Lasix and spironolactone (9) Controlled type 2 diabetes mellitus, with long-term current use of insulin: Cotn[place]ue Lantus and sliding scale - hold metformin History of Present Illness Chief Complaint: ill with fever Primary Care Provider: HATTIE Fleming 64 YOM with past medical history of liver cirrhosis, presumed liver cancer, biliary stent placement, cholecystectomy, liver lobe resection, DM II on insulin, CKD III, HTN, HLD, Hypothyroidism, Grade Esophageal varices, portal hypertension, and diabetic neuropathy. Patient has been on transplant list since 2014, last MELD was 11. He recently underwent a EGD last month, as well as MRI last week of his abdomen for routine following. He comes into the emergency room today for non-specific "cold" like symptoms. He had a slight bilateral temporal hedache last night that only lasted a few minutes and went away. He woke up this morning with feeling of some post nasal drip, feeling generalized achy and febrile. He took his temperature at 10 and was normal, took it again at 11 and was 101.3. He took 1 500mg Tylenol and rechecked his temperature at 1200 and was 101.4 so he came to the emergency room. Was worked up in the emergency room with CXR, ECG, blood cultures, lactate of 3.3, WBC 12.3. Was given 1 dose of Cefepime and 2liters of 0.9% normal saline and hospitalist service was called for admission. Patient is in room, not ill appearing, and well perfused. His HR is mildly elevated over his baseline of 90-110, BP is at his baseline. He was sent for a CTA of his abdomen for elevation of his total bili to 2.9; AST 195, ALT, 132, and ALK po4 of 144. His abdomen is not tender. He will be admitted for continued workup and trending of his labs and biomarkers. GI [facility] Agustin Ring paper cone machine tender was consulted. Patient original workup was started in 2013 where he arrived to [facility] jaundiced a nd ill. He was noted to have a bile duct stricture, where he had biliary stent placed. There was concern for cholangiocarcinoma and was referred to [facility] where he had a hepatic resection and Nacho-en-Y hepatojejunostomy. 2014 he had an GI Bleed from [facility] gar[facility] sear and was found to have esophageal varices at that time. His liver biopsy and colectomy apparently never confirmed his diagnosis. He has been on the liver transplant list since 2014, his most recent MELD before today was 11, he gets his normal screenings with EGD and colonoscopies here and follows up with [facility] about every 6 months. Allergies Allergy/AdvReac Type Severity Reaction Status Date / Time exenatide [From Byetta] AdvReac Intermediate Diarrhea Verified 07/03/20 15:06 Home Medications Medication Instructions Recorded Confirmed Type biotin 10 mg tablet 10 mg PO QAM #30 tab 08/11/18 07/03/20 Rx blood sugar diagnostic #10 ea 08/11/18 04/04/20 Rx ferrous sulfate 325 mg (65 mg 325 mg PO BID #60 tab 08/11/18 07/03/20 Rx iron) tablet cyanocobalamin (vitamin B-12) 1,000 mcg PO QAM 11/25/18 07/03/20 History 1,000 mcg capsule calcium carbonate [Calcium 600] 600 mg PO BID 12/25/18 07/03/20 History cholecalciferol (vitamin D3) 1,000 unit PO BID 12/25/18 07/03/20 History [Vitamin D3] cannabidiol (CBD) extract 1 dose PO BID 01/09/19 07/03/20 History ondansetron 4 mg disintegrating See Rx Instructions .ROUTE 08/07/19 07/03/20 Rx tablet .COMPLEX #30 tab levothyroxine 175 mcg tablet 175 mcg PO QAM #90 tab 09/14/19 07/03/20 Rx simvastatin 20 mg tablet 20 mg PO HS #90 tab 10/26/19 07/03/20 Rx insulin glargine 100 unit/mL (3 15 unit SUBCUT QAM #15 ml 12/01/19 07/03/20 Rx mL) subcutaneous pen bupropion HCl 150 mg PO BID 05/09/20 07/03/20 History furosemide 20 mg PO QAM 05/09/20 07/03/20 History insulin aspart U-100 [Novolog 1 sliding scale dose SUBCUT 05/09/20 07/03/20 History U-100 Insulin aspart] USEASDIRECTD metformin 1,000 mg PO BID 05/09/20 07/03/20 History omeprazole 40 mg PO BID 05/09/20 07/03/20 History spironolactone 50 mg PO QAM 05/09/20 07/03/20 History pen needle, diabetic 32 gauge x #100 ea 06/20/20 Rx " acetaminophen [Tylenol Extra 500 mg PO Q6H PRN 07/03/20 07/03/20 History Strength] Past Med/Surg History Medical History Anemia Cirrhosis of liver Depression DM type 2 (diabetes mellitus, type 2) IDDM Esophageal varices hx banding GERD (gastroesophageal reflux disease) GI bleed hx History of ascites Hyperlipidemia Hypertension hx Hypothyroidism Peripheral neuropathy Post traumatic stress disorder Surgical History History of abdominal paracentesis multiple (last 2 years ago) History of cholecystectomy History of colonoscopy History of ERCP History of esophagogastroduodenoscopy (EGD) History of herniorrhaphy WITH MESH-2018 History of surgery of liver Hepatic lobectomy (benign tumor) History of tooth extraction Hx of hand surgery RT HAND/ARM SURGERY (METAL PLATE D/T FX) Hx of vasectomy S/P debridement ABDOMINAL WOUND 2017 Family History Mother Diabetes Grandmother No problems noted. Grandmother (Maternal) Diabetes Family/Other Heart disease Cancer Hypertension Other No family history of adverse response to anesthesia Denies family history of Ovarian cancer Prostate cancer Myocardial infarction Breast cancer Colorectal cancer Social History Smoking Status: Never smoker Cigarettes Per Day: QUIT 35 YEARs ago; Second Hand Exposure: No; Hx Alcohol Use: No Hx Substance Use: No Preferred Language: Israeli Communication Ability: Effective Electrical Technician Required: No Beliefs That Will Affect Care: None Current Living Situation: Spouse Feels Safe at Home: Yes Dental Care, Regularly: Yes Seatbelt Use: always Sunscreen Use: No Assistive Devices: Denture - Upper and Denture - Lower Review of Systems Review of Systems: REVIEW OF SYSTEMS: Constitutional: (+) fever, generalized body aches, NO sweats or chills Eyes: No diplopia, no worsening or blurred vision ENT: normal hearing, no trouble swallowing Respiratory: No cough, sputum, dyspnea at rest or on exertion Cardiovascular: No chest pain, tightness or palpitations Abdomen: No pain, nausea, vomiting, diarrhea or constipation Musculoskeletal: No specific joint pain, calf pain, swelling Neurologic: No weakness, numbness/tingling, or balance problems Psychiatric: No anxiety or depression Skin: No rash or itch Physical Exam Physical Exam: PHYSICAL EXAM: General: awake, alert, no apparent distress Head: Normocephalic, atraumatic, no more headaches, no sinus pressure or pain with palpation ENT: bilateral tympanic membranes alfaro with good cone of light, no fluid or fullness noted, no pharyngeal exudate, mucous membranes moist Neuro: PERRL, EOMI,, AAO x 3, speech clear and appropriate, strength intact bilaterally 5/5, sensation intact and equal all extremities and dermatomes, no pronator drift Chest: equal rise and fall of the chest, no accessory muscle use, no heaves or thrills, Clear to auscultation, on room air, Cardiac: Regular rate and rhythm, telemetry reviewed, tachycardic (90-110 is patient baseline) skin warm dry, cap refill <3 seconds, peripheral pulses +2 no JVD, no murmur, no edema GI: NABS x 4 quadrants, soft, nontender to palpation, no rebound, guarding or tenderness, : Spontaneously voiding, no pain, no CVA tenderness, Extremities: Normal inspection, no peripheral edema or erythema, calfs nontender to palpation Psych: Normal mood and affect Skin: no rash or erythema Results & Data Results & Data ([facility]) Vital Signs (Past 12 Hours) Vital Signs Temp Pulse Resp BP Pulse Ox 07/03/20 17:06 116 H 21 107/58 L 97 07/03/20 17:00 114 H 22 81/60 L 97 07/03/20 16:40 99 07/03/20 16:32 99 07/03/20 16:00 122 H 23 112/74 96 07/03/20 15:51 37.4 C 07/03/20 15:40 122 H 25 H 95 07/03/20 15:30 120 H 21 104/75 96 07/03/20 15:20 122 H 22 96 07/03/20 15:08 124 H 29 H 105/72 95 07/03/20 15:00 124 H 18 96 07/03/20 14:45 95 07/03/20 14:40 128 H 27 H 07/03/20 14:30 127 H 27 H 104/78 07/03/20 14:20 126 H 24 07/03/20 14:01 127 H 17 07/03/20 14:00 128 H 22 126/94 07/03/20 13:40 128 H 20 07/03/20 13:31 126 H 16 96 07/03/20 13:30 125 H 19 131/82 96 07/03/20 13:09 36.7 C 141 H 20 117/77 96 Laboratory Results Abnormal lab results 07/03/20 07/03/20 07/03/20 Range/Units 14:08 14:08 14:08 WBC 12.16 H (4.8-10.8) K/uL RBC 4.46 L (4.7-6.1) M/uL RDW Std Deviation 51.5 H (36.4-46.3) fL RDW Coeff of Debby 14.7 H (11.5-14.5) % MPV 10.6 H (7.4-10.4) fL Neut # (Auto) 10.32 H (1.4-6.5) K/uL Lymph # (Auto) 0.77 L (1.2-3.4) K/uL Clarion # (Auto) 0.99 H (0.11-0.59) K/uL Glucose 142 H (70-99) mg/dl Lactate 3.3 H* (0.4-2.0) mmol/L Total Bilirubin 2.9 H (0.2-1) mg/dl AST 195 H (15-37) U/L ALT 132 H (12-78) U/L Alkaline Phosphatase 144 H (45-117) U/L Total Protein 8.4 H (6.4-8.2) gm/dl Globulin 5.0 H (2.5-4.0) gm/dl Albumin/Globulin Ratio 0.7 L (0.9-2) 07/03/20 Range/Units 15:55 WBC (4.8-10.8) K/uL RBC (4.7-6.1) M/uL RDW Std Deviation (36.4-46.3) fL RDW Coeff of Debby (11.5-14.5) % MPV (7.4-10.4) fL Neut # (Auto) (1.4-6.5) K/uL Lymph # (Auto) (1.2-3.4) K/uL Clarion # (Auto) (0.11-0.59) K/uL Glucose (70-99) mg/dl Lactate 2.7 H* (0.4-2.0) mmol/L Total Bilirubin (0.2-1) mg/dl AST (15-37) U/L ALT (12-78) U/L Alkaline Phosphatase (45-117) U/L Total Protein (6.4-8.2) gm/dl Globulin (2.5-4.0) gm/dl Albumin/Globulin Ratio (0.9-2) Diagnostic Findings CT abdomen w IV con CLINICAL HISTORY: elevated LFT's ALk phos, tachycardic with fever. Cirrhosis. COMPARISON STUDY: MRI of the abdomen June 20, 2020. CT of the abdomen and pelvis February 26, 2018. TECHNIQUE: Axial images of the abdomen were obtained following intravenous injection of 84 cc of Optiray 300. Sagittal and coronal reconstructions were viewed. Automated exposure control was utilized for the study. A dose lowering technique was utilized adhering to the principles of ALARA FINDINGS: Lung bases are unremarkable. Calcified right hilar lymph nodes are incidentally noted. There is bilateral gynecomastia. No pneumatosis, free air or portal venous gas within the abdomen is noted. There is trace abdominal fluid. Mesenteric infiltration and collateral are noted. The findings are probably chronic. Colonic thickening has been shown on multiple prior exams. A biliary stent is in place. No biliary or pancreatic ductal dilatation is present. Right hepatic lobe resection is noted. Postoperative appearance is unchanged. A 2.3 cm hypodense focus along the resection margin is unchanged since CT of February 26, 2018. Therefore, this is benign. There are no suspicious hepatic lesions. The liver is cirrhotic. The main and left portal veins are patent. The superior mesenteric vein is patent. Mildly enlarged abdominal lymph nodes are unchanged from earlier exams. There is no hydronephrosis. Calcified granulomas within the spleen are noted. Adrenal glands are unremarkable. There are no peripancreatic fluid collections. IMPRESSION: 1. Cirrhosis status post right hepatic lobe resection. No suspicious lesions. Abdominal collaterals consistent with portal hypertension, unchanged. Patent main and left portal veins. 2. Biliary stent in place. No biliary ductal dilatation. 3. No significant change in colonic wall thickening which is likely related to portal hypertension. Trace ascites. 4. No significant change in appearance of the abdomen from earlier exams. XR chest 1V portable CLINICAL HISTORY: SEPSIS COMPARISON STUDY: Chest radiograph January 02, 2015. FINDINGS: Lung volumes are normal. Lungs are clear. There is no pneumothorax or pleural effusion. Cardiac size is normal. Mediastinal contours are normal. There is no evidence for pulmonary edema. Calcified right lower lung nodule is benign. IMPRESSION: No acute cardiopulmonary findings. MRI OF THE ABDOMEN COMBO---> 06/20/20 CLINICAL HISTORY: Cirrhosis. Transplant screening. COMPARISON STUDY: Abdominal MRI dated 07/13/2019. Abdominal CT dated 02/16/2018. TECHNIQUE: MRI of the abdomen is performed transverse T1 and T2-weighted sequences in the axial and coronal planes. Contrast enhanced sequences were acquired following the IV administration of 10 cc of Eovist. Diffusion-weighted imaging and subtraction imaging were utilized. High-resolution MRCP images were obtained. 3-D reformats are created and assessed. FINDINGS: Lower chest: No pleural effusion is identified. The heart is normal in size. Liver: There is postoperative change from right hepatic lobe resection with compensatory hypertrophy of the left lobe. The liver is cirrhotic in morphology and heterogeneous in signal intensity. There is nodularity of the hepatic surface contour. There is minimal central intrahepatic biliary ductal dilatation. The hepatic veins and portal veins are patent. There are no arterially hypervascular hepatic lesions with delayed washout typical for hepatocellular carcinoma. No diffusion restricting hepatic lesions are identified. A 2.3 cm T2 hyperintense focus of cystic change adjacent to the resection margin is similar to previous. Gallbladder/MRCP: The gallbladder is surgically absent. The examination is degraded by motion artifact. A common bile duct stent is likely in place, best seen on axial image #21. The common bile duct cannot be evaluated by MRCP. The pancreatic duct is normal in caliber. Spleen: Normal in size and signal intensity. There are numerous calcified splenic granulomas. Pancreas: Moderately atrophic and grossly unremarkable. Adrenal glands: Unremarkable. Kidneys: The kidneys demonstrate cortical atrophy and are without hydronephrosis. The kidneys enhance and excrete symmetrically. Abdominal aorta: Normal in course and caliber Bowel: Visualized portions of bowel show no evidence of obstruction. Peritoneum: There is no abdominal ascites. Lymphadenopathy: None. Skeletal structures: Visualized skeletal structures times are normal marrow signal intensity. IMPRESSION: 1. Cirrhotic liver morphology with postoperative change from right hepatic lobe resection. This is similar to previous. 2. There are no arterially hypervascular lesions with delayed washout typical for hepatocellular carcinoma. 3. Status post cholecystectomy. 4. There is minimal intrahepatic biliary ductal dilatation. 5. A common bile duct stent is likely in place. This significantly degrades assessment on the ERCP images. 6. Additional findings as above. Medications Administered Discontinued Medications Sodium Chloride (Nss 1000ml) 1,000 mls @ 999 mls/hr IV .Q1H1M YENNI Stop: 07/03/20 15:00 Last Infusion: 07/03/20 15:47 Dose: 0 mls/hr Documented by: [id number] Infusion: 07/03/20 15:42 Dose: 0 mls/hr Documented by: [id number] Admin: 07/03/20 14:24 Dose: 999 mls/hr Documented by: [id number] Cefepime HCl (Maxipime) 2,000 mg in 20 mls @ 5 mls/min IV NOW STA; Protocol Stop: 07/03/20 13:52 Last Admin: 07/03/20 14:25 Dose: 5 mls/min Documented by: [id number] Sodium Chloride (Nss 1000ml) 1,000 mls @ 999 mls/hr IV .Q1H1M ONE Stop: 07/03/20 16:04 Last Infusion: 07/03/20 17:53 Dose: 0 mls/hr Documented by: [id number] Admin: 07/03/20 15:47 Dose: 999 mls/hr Documented by: [id number] Ioversol (Optiray 300 100ml) 84 ml IV ONCE ONE Stop: 07/03/20 16:27 Last Admin: 07/03/20 16:27 Dose: 84 ml Documented by: [id number] Home Medications biotin 10 mg tablet 10 mg PO QAM #30 tab 08/11/18 [Rx Confirmed 07/03/20] blood sugar diagnostic #10 ea 08/11/18 [Rx Confirmed 04/04/20] ferrous sulfate 325 mg (65 mg iron) tablet 325 mg PO BID #60 tab 08/11/18 [Rx Confirmed 07/03/20] cyanocobalamin (vitamin B-12) 1,000 mcg capsule 1,000 mcg PO QAM 11/25/18 [History Confirmed 07/03/20] calcium carbonate [Calcium 600] 600 mg PO BID 12/25/18 [History Confirmed 07/03/20] cholecalciferol (vitamin D3) [Vitamin D3] 1,000 unit PO BID 12/25/18 [History Confirmed 07/03/20] cannabidiol (CBD) extract 1 dose PO BID 01/09/19 [History Confirmed 07/03/20] ondansetron 4 mg disintegrating tablet See Rx Instructions .ROUTE .COMPLEX #30 tab 08/07/19 [Rx Confirmed 07/03/20] levothyroxine 175 mcg tablet 175 mcg PO QAM #90 tab 09/14/19 [Rx Confirmed 07/03/20] simvastatin 20 mg tablet 20 mg PO HS #90 tab 10/26/19 [Rx Confirmed 07/03/20] insulin glargine 100 unit/mL (3 mL) subcutaneous pen 15 unit SUBCUT QAM #15 ml 12/01/19 [Rx Confirmed 07/03/20] bupropion HCl 150 mg PO BID 05/09/20 [History Confirmed 07/03/20] furosemide 20 mg PO QAM 05/09/20 [History Confirmed 07/03/20] insulin aspart U-100 [Novolog U-100 Insulin aspart] 1 sliding scale dose SUBCUT USEASDIRECTD 05/09/20 [History Confirmed 07/03/20] metformin 1,000 mg PO BID 05/09/20 [History Confirmed 07/03/20] omeprazole 40 mg PO BID 05/09/20 [History Confirmed 07/03/20] spironolactone 50 mg PO QAM 05/09/20 [History Confirmed 07/03/20] pen needle, diabetic 32 gauge x 5/32" #100 ea 06/20/20 [Rx] acetaminophen [Tylenol Extra Strength] 500 mg PO Q6H PRN 07/03/20 [History Confirmed 07/03/20] ECG Additional Comments: Sinus tachycardia Left axis deviation Pulmonary disease pattern Inferior infarct , age undetermined Abnormal ECG When compared with ECG of 19-OCT-2017 12:46, Vent. rate has increased BY 81 BPM Inferior infarct is now Present Nonspecific T wave abnormality now evident in Lateral leads Compared to ECG 2018- non specific T wave and left axis deviation. Code Status & VTE Plan Code Status CODE: FUll VTE: Heparin, SCD's Supervising Physician Co-Signing Physician Notes I supervised HATTIE Tobar on this admission. I examined the patient to day independently of him. I discussed the plan of care with him with the plan being as written in his note except for any following changes/exceptions: None. 64yo M w/ hx of complex liver issues and partial liver resection. He presents for sepsis, waking up this morning with fever, chills, and tachycardia. On presentation, his lactate was elevated, and he was tachycardic. He actually feels fairly well here and does not have an overtly septic exam. His liver hx is better documented in Chirag Bean's note, but includes presumed liver cancer that required a resection & Nacho-en-Y hepaticojejunostomy, but then turned out to be benign. He then had BERNAL cirrhosis and has been on the transplant list since 2015. EGD showed Grade 1 varices. Liver labs now elevated. Will get an acute liver panel, GI consult. He has biliary stent that has been in for some time (since 2013?), and I am unclear if this represents blockage of stent. CT abdomen shows only trace abdominal fluid, so I do not think that a paracentesis is feasible, and SBP seems unlikely. PG Care Time/CCT Total # of Minutes Spent Total Time Spent with Patient: Total time spent is greater than 50% in coordination of care (as documented) at patient's floor/unit and/or counseling patient: Coding Level of Care Code 45544 Initial Inpt Care Lvl 3 Diagnoses Leukocytosis D72.829 Leukocytosis type: unspecified Abnormal laboratory test R89.9 Cirrhosis of liver K74.69 Hepatic cirrhosis type: other cirrhosis Esophageal varices I85.10 Esophageal varices bleeding: without bleeding Esophageal varices type: secondary Hypothyroidism E03.9 Hypothyroidism type: unspecified GERD (gastroesophageal reflux disease) K21.9 Esophagitis presence: without esophagitis CKD (chronic kidney disease), stage III N18.31 Chronic kidney disease stage 3 subtype: stage 3a (GFR 45-59) Portal hypertension K76.6 Controlled type 2 diabetes mellitus, with long-term current use of insulin E11.9; Z79.4 Diabetes mellitus complication status: without complication (1) CKD (chronic kidney disease), stage III Chronic kidney disease stage 3 subtype: stage 3a (GFR 45-59) Qualified Code(s): N18.31 - Chronic kidney disease, stage 3a (2) Esophageal varices Esophageal varices bleeding: without bleeding Esophageal varices type: secondary Qualified Code(s): I85.10 - Secondary esophageal varices without bleeding (3) Hypothyroidism Hypothyroidism type: unspecified Qualified Code(s): E03.9 - Hypothyroidism, unspecified (4) Leukocytosis Leukocytosis type: unspecified Qualified Code(s): D72.829 - Elevated white blood cell count, unspecified (5) Cirrhosis of liver Hepatic cirrhosis type: other cirrhosis Qualified Code(s): K74.69 - Other cirrhosis of liver (6) Controlled type 2 diabetes mellitus, with long-term current use of insulin Diabetes mellitus complication status: without complication Qualified Code(s): E11.9 - Type 2 diabetes mellitus without complications; 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
[2020-07-03] MEDS ORDERED: POLYETHYLENE (MIRALAX) 17 GM PACK PO PRN (18:46)
[2020-07-03] MEDS ORDERED: GLUCOSE 10 TABS/TUBE PO PRN (18:46)
[2020-07-03] MEDS ORDERED: GLUCAGON FOR INJ 1 MG VIAL SQ PRN (18:46)
[2020-07-03] MEDS ORDERED: LACTATED RINGER'S 1,000 ML IV SCH (18:46)
[2020-07-03] MEDS ORDERED: CARBOHYDRATES FOR HYPOGLYCEMIA PO PRN (18:46)
[2020-07-03] MEDS ORDERED: GLUCOSE 40% GEL 15 GM TUBE PO PRN (18:46)
[2020-07-03] MEDS ORDERED: DEXTROSE 50% 50 ML SYRINGE IV PRN (18:46)
[2020-07-03] MEDS ORDERED: ONDANSETRON 4 MG OD TAB PO PRN (19:07)
[2020-07-03 19:36] LABS: Hepatitis B Surf Ag Rflx Conf Neg (Neg)
[2020-07-03 20:04] LABS: Hepatitis C IgG 13Yrs+Old_Rflx Neg (Neg)
[2020-07-03] MEDS ORDERED: SIMVASTATIN 20 MG TAB PO SCH (21:00)
[2020-07-03] MEDS: buPROPion SR 150 MG TABCR PO SCH (21:32)
[2020-07-03] MEDS: CALCIUM CARBONATE 1250MG TAB PO SCH (21:33)
[2020-07-03] MEDS: PANTOprazole 40 MG TAB PO SCH (21:34)
[2020-07-03] MEDS: CHOLECALCIFEROL 1,000 UNITS 25 MCG TAB PO SCH (21:34)
[2020-07-03] MEDS: FERROUS SULFATE 325 MG TAB PO SCH (21:34)
[2020-07-03] MEDS: HEPARIN SOD 5,000 UNIT/0.5 ML VIAL SQ SCH (21:36)
[2020-07-03] MEDS: INSULIN ASPART 100 UNITS/ML 3 ML PEN SC SCH (21:49)
[2020-07-03] MEDS: CEFEPIME 2,000 MG in SYRINGE 0 ML IV SCH (21:51)
[2020-07-04] MEDS: HEPARIN SOD 5,000 UNIT/0.5 ML VIAL SQ SCH (06:41)
[2020-07-04] MEDS: LEVOTHYROXINE SODIUM 175 MCG TABLET PO SCH (06:42)
[2020-07-04 07:49] LABS: Basophils # (auto) 0.02 K/uL (0-0.2); Basophils % (auto) 0.2 %; Eosinophils # (auto) 0.24 K/uL (0-0.5); Eosinophils % (auto) 2.6 %; Hematocrit (blood only) 37.1 % (42-52); Hemoglobin 12.6 g/dL (14.0-18.0); Immature Granulocytes # (auto) 0.02 K/uL (0.00-0.02); Immature Granulocytes % (auto) 0.2 %; Lymphocytes # (auto) 0.93 K/uL (1.2-3.4); Lymphocytes % (auto) 10.1 %; Mean Corpuscular Hemoglobin 32.7 pg (25-34); Mean Corpuscular Volume 96.4 fL (80-100); Mean Platelet Volume 10.1 fL (7.4-10.4); Monocytes # (auto) 1.39 K/uL (0.11-0.59); Monocytes % (auto) 15.1 %; Neutrophils % (auto) 71.8 %; Platelet Count 142 K/uL (130-400); RDW Coefficient of Variation 14.8 % (11.5-14.5); RDW Standard Deviation 52.4 fL (36.4-46.3); Red Blood Count 3.85 M/uL (4.7-6.1)
[2020-07-04 08:06] LABS: INR 1.2 (0.9-1.1); Partial Thromboplastin Ratio 1.1; Partial Thromboplastin Time 28.2 Seconds (21.0-31.0); Prothrombin Time 12.3 Seconds (9.0-12.0)
[2020-07-04 08:23] LABS: Albumin Level 2.7 gm/dl (3.4-5.0); BUN Creatinine Ratio 13.3 (10-20); C Reactive Protein 6.4 mg/dl (0-0.29); Calcium 8.9 mg/dl (8.5-10.1); Creatinine Clr Calc Pharmacy 66.2 ml/min; Est GFR (African American) 78.1; Est GFR (Non-African American) 67.4; Magnesium 1.9 mg/dl (1.8-2.4); Potassium 3.9 mmol/L (3.5-5.1)
[2020-07-04 08:26] LABS: Estimated Average Glucose 120 mg/dl; Hemoglobin A1C 5.8 % (4.5-5.6)
[2020-07-04 08:29] LABS: Albumin Globulin Ratio 0.7 (0.9-2); Bilirubin,Total 5.9 mg/dl (0.2-1); Globulin 3.9 gm/dl (2.5-4.0); Total Protein 6.6 gm/dl (6.4-8.2)
[2020-07-04] MEDS: CEFEPIME 2,000 MG in SYRINGE 0 ML IV SCH ×2 (09:22→20:17)
[2020-07-04] MEDS: INSULIN GLARGINE SOLOSTAR 100 UNITS/ML 3 ML PEN SQ SCH (09:22)
[2020-07-04] MEDS: INSULIN ASPART 100 UNITS/ML 3 ML PEN SC SCH ×4 (09:24→21:37)
--- NOTE | 2020-07-04 11:57 | Gastrointestinal Consultation ---
Date of Consultation July 04, 2020 Assessment & Plan (1) Fever: (2) Cirrhosis: (3) Chills: Pt is a 64 y/o male w hx of liver cirrhosis (baseline MELD 11, currently on liver transplant list at 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 Infectious workup ruled out UTI, pulmonary infection, SBP (no ascites). Blood cx pending. CT abd/pelvis showed biliary stent in place. Given rise in Tbili suspect possible biliary anastomosis stricture at the hepatojejunostomy level. - Continue antibiotic coverage - Recommend transfer to [facility] for surgical evaluation ? possible biliary stricture needing surgical revision. This was communicated to primary hospitalist (Dr. Ramone Jason) who will arrange for transfer Supervising Physician Co-Signing Physician Notes I have seeen and examined the patient and discussed the management with HATTIE Hernandez. PE - no acute distress, abd soft nt nd +bs Labs reviewed/imaging reviewed Plan also discussed and coordinated with Dr. Leung who did his prior biliary stenting, overall the impression would be to consider transfer to [facility] given that is where he is listed for liver transplant and also concerns that stricturing of his prior heptico-jejunostomy could be contributing to his lft's. 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 He denies any jaundice, CP, SOB, abd pain, changes in bowel habits, no GI bleeding. He denies sick contact, travels, is COVID 19 negative. No new meds/recent antibiotics. Noted his WBC was mildly up at 12, LFTs: Tbili 5.9, AST 128, ALT 112, Alk phose 115. No signs of UTI, pulmonary infection, no ascites. Of note, pt is listed at [facility] Liver Transplant list, follows with Hepatology there regularly. Allergies Allergy/AdvReac Type Severity Reaction Status Date / Time exenatide [From Byetta] AdvReac Intermediate Diarrhea Verified 07/03/20 15:06 Home Medications Medication Instructions Recorded Confirmed Type biotin 10 mg tablet 10 mg PO QAM #30 tab 08/11/18 07/03/20 Rx blood sugar diagnostic #10 ea 08/11/18 04/04/20 Rx ferrous sulfate 325 mg (65 mg 325 mg PO BID #60 tab 08/11/18 07/03/20 Rx iron) tablet cyanocobalamin (vitamin B-12) 1,000 mcg PO QAM 11/25/18 07/03/20 History 1,000 mcg capsule calcium carbonate [Calcium 600] 600 mg PO BID 12/25/18 07/03/20 History cholecalciferol (vitamin D3) 1,000 unit PO BID 12/25/18 07/03/20 History [Vitamin D3] cannabidiol (CBD) extract 1 dose PO BID 01/09/19 07/03/20 History ondansetron 4 mg disintegrating See Rx Instructions .ROUTE 08/07/19 07/03/20 Rx tablet .COMPLEX #30 tab levothyroxine 175 mcg tablet 175 mcg PO QAM #90 tab 09/14/19 07/03/20 Rx simvastatin 20 mg tablet 20 mg PO HS #90 tab 10/26/19 07/03/20 Rx insulin glargine 100 unit/mL (3 15 unit SUBCUT QAM #15 ml 12/01/19 07/03/20 Rx mL) subcutaneous pen bupropion HCl 150 mg PO BID 05/09/20 07/03/20 History furosemide 20 mg PO QAM 05/09/20 07/03/20 History insulin aspart U-100 [Novolog 1 sliding scale dose SUBCUT 05/09/20 07/03/20 History U-100 Insulin aspart] USEASDIRECTD metformin 1,000 mg PO BID 05/09/20 07/03/20 History omeprazole 40 mg PO BID 05/09/20 07/03/20 History spironolactone 50 mg PO QAM 05/09/20 07/03/20 History pen needle, diabetic 32 gauge x #100 ea 06/20/20 Rx " acetaminophen [Tylenol Extra 500 mg PO Q6H PRN 07/03/20 07/03/20 History Strength] Patient History Medical History Anemia Cirrhosis of liver Depression DM type 2 (diabetes mellitus, type 2) IDDM Esophageal varices hx banding GERD (gastroesophageal reflux disease) GI bleed hx History of ascites Hyperlipidemia Hypertension hx Hypothyroidism Peripheral neuropathy Post traumatic stress disorder Surgical History History of abdominal paracentesis multiple (last 2 years ago) History of cholecystectomy History of colonoscopy History of ERCP History of esophagogastroduodenoscopy (EGD) History of herniorrhaphy WITH MESH-2018 History of surgery of liver Hepatic lobectomy (benign tumor) History of tooth extraction Hx of hand surgery RT HAND/ARM SURGERY (METAL PLATE D/T FX) Hx of vasectomy S/P debridement ABDOMINAL WOUND 2017 Family History Mother Diabetes Grandmother No problems noted. Grandmother (Maternal) Diabetes Family/Other Heart disease Cancer Hypertension Other No family history of adverse response to anesthesia Denies family history of Ovarian cancer Prostate cancer Myocardial infarction Breast cancer Colorectal cancer Social History Smoking Status: Former smoker Cigarettes Per Day: QUIT 35 YEARs ago; Smoking End Date: 1990; Second Hand Exposure: No; Do You Dip or Chew Tobacco: Yes; Tobacco Cessation Education Requested by Patient: No Hx Alcohol Use: No Hx Substance Use: No Preferred Language: Montenegrin Communication Ability: Effective Director Hr Communications Required: No Beliefs That Will Affect Care: None Current Living Situation: Spouse Other Information That Helps Us Care for You: No Feels Safe at Home: Yes Safety Concerns: Feels Safe At This Time Dental Care, Regularly: Yes Seatbelt Use: always Sunscreen Use: No Assistive Devices: Denture - Upper and Denture - Lower Assistive Devices Comment: Sensor for Continuious Glucose monitor Review of Systems Review of Systems: All systems reviewed & are unremarkable except as noted in HPI & below Physical Exam Constitutional: WD/WN, vitals as above well groomed, cooperative and comfortable Eyes: PERRL, conjunctivae normal, anicteric sclerae ENMT: external ear and nose normal, oropharynx normal Respiratory: normal respiratory effort, lungs clear to auscultation Cardiovascular: RRR, no murmur, no edema Gastrointestinal (Abdomen): normal bowel sounds, soft, nontender, no hepatosplenomegaly Skin: no rashes, warm and dry no jaundice Psychiatric: A+Ox3, euthymic affect Lymphatic: no lymphedema Results & Data ([facility]) Vital Signs (Past 12 Hours) Vital Signs Temp Pulse Pulse Resp BP Pulse Ox 07/04/20 11:39 36.7 C 84 16 98/64 L 97 07/04/20 07:51 36.5 C 74 16 100/66 93 07/04/20 04:00 36.9 C 94 H 20 94/62 L 96 07/04/20 02:54 99 H (1) Fever Fever type: unspecified Qualified Code(s): R50.9 - Fever, unspecified
[2020-07-04] MEDS: SPIRONOLACTONE 25 MG TAB PO SCH (12:33)
[2020-07-04] MEDS: FERROUS SULFATE 325 MG TAB PO SCH ×2 (12:34→20:18)
[2020-07-04] MEDS: FUROSEMIDE 20 MG TAB PO SCH (12:34)
[2020-07-04] MEDS: CYANOCOBALAMIN 500 MCG TABLET (VITAMIN B-12) PO SCH (12:35)
[2020-07-04] MEDS: PANTOprazole 40 MG TAB PO SCH ×2 (12:35→20:19)
[2020-07-04] MEDS: CALCIUM CARBONATE 1250MG TAB PO SCH ×2 (12:36→20:18)
[2020-07-04] MEDS: CHOLECALCIFEROL 1,000 UNITS 25 MCG TAB PO SCH ×2 (12:36→20:18)
[2020-07-04] MEDS: buPROPion SR 150 MG TABCR PO SCH ×2 (12:36→20:17)
--- NOTE | 2020-07-04 14:15 | Electrocardiogram Report ---
Test Reason : Blood Pressure : / mmHG Vent. Rate : 129 BPM Atrial Rate : 129 BPM P-R Int : 150 ms QRS Dur : 074 ms QT Int : 284 ms P-R-T Axes : -20 -30 155 degrees QTc Int : 416 ms Sinus tachycardia Left axis deviation Inferior infarct , age undetermined Abnormal ECG When compared with ECG of 19-OCT-2017 12:46, Vent. rate has increased BY 81 BPM Inferior infarct is now Present Nonspecific T wave abnormality now evident in Lateral leads Confirmed by Liam Barbour ([id number]) on 07/04/2020 2:15:14 PM Referred By: REFERRED SELF Confirmed By:Liam Barbour
--- NOTE | 2020-07-04 14:21 | Hospitalist Progress Note ---
Date of Service July 04, 2020 Assessment & Plan (1) Leukocytosis: COVID negative, flu, RSV negative. SIRS-3, qSOFA- 1, PCT 0.44, NLR 7:1, Lactate 3.3--->2.7 CXR clear, CT scan of abdomen clear - Technically meets sepsis, but is normally tachycardic - Organ dysfunction- biliary/liver- AST 195 (38-50), ALT- 132 (40-50), ALK po4 144 (90-130), Tbili 2.9 (0.5-0.8) - Possibly could be acute phase reactants - Blood cultures pending - Urine negative - Non specific physical exam for other infective sources - Continue cefepime 2g q12 - Add metronidazole today to also cover for anaerobic coverage. Planning to transfer to [facility] if possible. (2) Abnormal laboratory test: As above- follow - Patient has not started any new medications or supplements, no ETOH, has not changed diet - GI has concern for stricture of his hepatojejunostomy which would prevent drainage of his biliary system. (3) Cirrhosis of liver: As per HIP- still has miliary stent- 2013- - Stent stenosis ? - GI consulted - Liver enzymes were normal in April - No juandice - MELD now 14 with increased tbili - coagulation remains normal (4) Esophageal varices: No acute changes- EGD over the years, they remain grade I (5) Hypothyroidism: TSH in morning - Continue synthroid- no acute needs (6) GERD (gastroesophageal reflux disease): Continue omeprazole 40 mg (7) CKD (chronic kidney disease), stage III: No acute needs, no evidence of organ dysfunction- - resuscitated with 0.9% saline in the ER prior to evaluation - LR at 100 ml for one liter overnight - CTA of abdomen 07/03/20 - Avoid nephrotoxic medications, if needed minimize exposure time (8) Portal hypertension: No acute evidence of worsening, no ascites - continue Lasix and spironolactone (9) Controlled type 2 diabetes mellitus, with long-term current use of insulin: Cotninue Lantus and sliding scale - hold metformin Admission and Anticipated Discharge Date Admission Date: July 03, 2020 Subjective Had some aches this morning. Subjective fevers. Reports no chest pain, shortness of breath, abdominal pain, nausea, or vomiting. Physical Exam Constitutional: WD/WN, vitals as above Eyes: EOM intact bilaterally; no conjunctival abnormality ENMT: external ear and nose normal, oropharynx normal Neck: trachea midline, no thyromegaly normal visual inspection Respiratory: normal respiratory effort, lungs clear to auscultation no respiratory distress Cardiovascular: RRR, no murmur, no edema Gastrointestinal (Abdomen): Inspection/Auscultation: abdomen normal to inspection; abdomen not distended Percussion/Palpation: abdomen soft; abdomen nontender, no guarding and abdomen not rigid Musculoskeletal: no cyanosis or clubbing, extremities motor strength 5/5 Skin: no rashes, warm and dry Neurologic: moves all extremities and awake Psychiatric: Orientation: alert, oriented to person and cooperative Results & Data Results & Data ([facility]) Vital Signs (Past 12 Hours) Vital Signs Temp Pulse Pulse Resp BP Pulse Ox 07/04/20 11:39 36.7 C 84 16 98/64 L 97 07/04/20 07:51 36.5 C 74 16 100/66 93 07/04/20 04:00 36.9 C 94 H 20 94/62 L 96 07/04/20 02:54 99 H PG Care Time/CCT Total # of Minutes Spent Total Time Spent with Patient: Total time spent is greater than 50% in coordination of care (as documented) at patient's floor/unit and/or counseling patient: Coding Level of Care Code 06466 Subseq Hosp Care Lvl 2 Diagnoses Leukocytosis D72.829 Leukocytosis type: unspecified Abnormal laboratory test R89.9 Cirrhosis of liver K74.69 Hepatic cirrhosis type: other cirrhosis Esophageal varices I85.10 Esophageal varices type: secondary Esophageal varices bleeding: without bleeding Hypothyroidism E03.9 Hypothyroidism type: unspecified GERD (gastroesophageal reflux disease) K21.9 Esophagitis presence: without esophagitis CKD (chronic kidney disease), stage III N18.31 Chronic kidney disease stage 3 subtype: stage 3a (GFR 45-59) Portal hypertension K76.6 Controlled type 2 diabetes mellitus, with long-term current use of insulin E11.9; Z79.4 Diabetes mellitus complication status: without complication (1) Leukocytosis Leukocytosis type: unspecified Qualified Code(s): D72.829 - Elevated white blood cell count, unspecified (2) Cirrhosis of liver Hepatic cirrhosis type: other cirrhosis Qualified Code(s): K74.69 - Other cirrhosis of liver (3) Esophageal varices Esophageal varices type: secondary Esophageal varices bleeding: without bleeding Qualified Code(s): I85.10 - Secondary esophageal varices without bleeding (4) Hypothyroidism Hypothyroidism type: unspecified Qualified Code(s): E03.9 - Hypothyroidism, unspecified (5) GERD (gastroesophageal reflux disease) Esophagitis presence: without esophagitis Qualified Code(s): K21.9 - Gastro- esophageal reflux disease without esophagitis (6) CKD (chronic kidney disease), stage III Chronic kidney disease stage 3 subtype: stage 3a (GFR 45-59) Qualified Code(s): N18.31 - Chronic kidney disease, stage 3a (7) Controlled type 2 diabetes mellitus, with long-term current use of insulin Diabetes mellitus complication status: without complication Qualified Code(s): E11.9 - Type 2 diabetes mellitus without complications; Z79.4 - prison (current) use of insulin
[2020-07-04] MEDS: metroNIDAZOLE 250 MG/50 ML BAG IV SCH ×2 (14:41→21:41)
[2020-07-05] MEDS: LEVOTHYROXINE SODIUM 175 MCG TABLET PO SCH (05:37)
[2020-07-05] MEDS: metroNIDAZOLE 250 MG/50 ML BAG IV SCH ×3 (05:37→23:02)
[2020-07-05 06:05] LABS: Basophils # (auto) 0.03 K/uL (0-0.2); Basophils % (auto) 0.5 %; Eosinophils # (auto) 0.31 K/uL (0-0.5); Eosinophils % (auto) 4.7 %; Hematocrit (blood only) 37.7 % (42-52); Hemoglobin 12.9 g/dL (14.0-18.0); Immature Granulocytes # (auto) 0.01 K/uL (0.00-0.02); Immature Granulocytes % (auto) 0.2 %; Lymphocytes # (auto) 0.66 K/uL (1.2-3.4); Lymphocytes % (auto) 10.1 %; Mean Corpuscular Hemoglobin 32.9 pg (25-34); Mean Corpuscular Hgb Conc 34.2 g/dL (32-36); Mean Corpuscular Volume 96.2 fL (80-100); Mean Platelet Volume 10.5 fL (7.4-10.4); Monocytes # (auto) 1.01 K/uL (0.11-0.59); Monocytes % (auto) 15.5 %; Neutrophils # (auto) 4.51 K/uL (1.4-6.5); Platelet Count 140 K/uL (130-400); RDW Coefficient of Variation 14.9 % (11.5-14.5); RDW Standard Deviation 52.2 fL (36.4-46.3); Red Blood Count 3.92 M/uL (4.7-6.1); White Blood Count 6.53 K/uL (4.8-10.8)
[2020-07-05 06:12] LABS: INR 1.2 (0.9-1.1); Partial Thromboplastin Ratio 1.1; Partial Thromboplastin Time 28.6 Seconds (21.0-31.0); Prothrombin Time 11.9 Seconds (9.0-12.0)
[2020-07-05 06:32] LABS: Albumin Level 2.7 gm/dl (3.4-5.0); BUN Creatinine Ratio 11.8 (10-20); Calcium 8.7 mg/dl (8.5-10.1); Est GFR (African American) 87.1; Est GFR (Non-African American) 75.2; Potassium 3.8 mmol/L (3.5-5.1)
[2020-07-05 06:37] LABS: Albumin Globulin Ratio 0.6 (0.9-2); Bilirubin,Total 3.8 mg/dl (0.2-1); Globulin 4.3 gm/dl (2.5-4.0)
[2020-07-05] MEDS: FERROUS SULFATE 325 MG TAB PO SCH ×2 (08:01→21:07)
[2020-07-05] MEDS: CYANOCOBALAMIN 500 MCG TABLET (VITAMIN B-12) PO SCH (08:01)
[2020-07-05] MEDS: CALCIUM CARBONATE 1250MG TAB PO SCH ×2 (08:01→21:06)
[2020-07-05] MEDS: INSULIN ASPART 100 UNITS/ML 3 ML PEN SC SCH ×4 (08:02→22:34)
[2020-07-05] MEDS: PANTOprazole 40 MG TAB PO SCH ×2 (08:02→21:07)
[2020-07-05] MEDS: CHOLECALCIFEROL 1,000 UNITS 25 MCG TAB PO SCH ×2 (08:02→21:06)
[2020-07-05] MEDS: FUROSEMIDE 20 MG TAB PO SCH (08:02)
[2020-07-05] MEDS: buPROPion SR 150 MG TABCR PO SCH ×2 (08:02→21:06)
[2020-07-05] MEDS: SPIRONOLACTONE 25 MG TAB PO SCH (08:02)
[2020-07-05] MEDS: INSULIN GLARGINE SOLOSTAR 100 UNITS/ML 3 ML PEN SQ SCH (08:04)
[2020-07-05] MEDS: CEFEPIME 2,000 MG in SYRINGE 0 ML IV SCH ×2 (08:17→21:06)
[2020-07-05 12:06] LABS: Hepatitis A Antibody IgM NON-REACTIVE (NON-REACTIVE); Hepatitis B Core Antibody IgM NON-REACTIVE (NON-REACTIVE)
--- NOTE | 2020-07-05 15:09 | Hospitalist Progress Note ---
Date of Service July 05, 2020 Assessment & Plan (1) Leukocytosis: COVID negative, flu, RSV negative. SIRS-3, qSOFA- 1, PCT 0.44, NLR 7:1, Lactate 3.3--->2.7 CXR clear, CT scan of abdomen clear - Technically meets sepsis, but is normally tachycardic - Organ dysfunction- biliary/liver- On admission: AST 195 (38-50), ALT- 132 (40- 50), ALK po4 144 (90-130), Tbili 2.9 (0.5-0.8) - Possibly could be acute phase reactants - Blood cultures pending - Urine negative - Non specific physical exam for other infective sources - Continue cefepime 2g q12 - Added metronidazole on 07/04 to also cover for anaerobic coverage. Planning to transfer to [facility] if possible. - Bilirubin better today and symptomatically improved. Will plan for transfer as soon as bed available. (2) Abnormal laboratory test: As above- follow - Patient has not started any new medications or supplements, no ETOH, has not changed diet - GI has concern for stricture of his hepatojejunostomy which would prevent drainage of his biliary system. (3) Cirrhosis of liver: As per HIP- still has biliary stent- 2013- - Stent stenosis ? - GI consulted and feel this is less likely the case. - Liver enzymes were normal in April - No jaundice. - MELD now 14 with increased tbili. - coagulation remains normal (4) Esophageal varices: No acute changes- EGD over the years, they remain grade I (5) Hypothyroidism: TSH was 0.616 in 04/2019. - Continue synthroid - Recheck TSH in AM. (6) GERD (gastroesophageal reflux disease): Continue omeprazole 40 mg (7) CKD (chronic kidney disease), stage III: No acute needs, no evidence of organ dysfunction- - CTA of abdomen 07/03/20 - Avoid nephrotoxic medications, if needed minimize exposure time (8) Portal hypertension: No acute evidence of worsening, no ascites - continue Lasix and spironolactone (9) Controlled type 2 diabetes mellitus, with long-term current use of insulin: Cotninue Lantus and sliding scale - hold metformin Admission and Anticipated Discharge Date Admission Date: July 03, 2020 Subjective Doing well today. No major issues. No abdominal pain. Morning aches from yesterday are improving. Reports no fevers/chills, chest pain, shortness of breath, abdominal pain, nausea, or vomiting. Physical Exam Constitutional: WD/WN, vitals as above Eyes: EOM intact bilaterally; no conjunctival abnormality ENMT: external ear and nose normal, oropharynx normal Neck: trachea midline, no thyromegaly normal visual inspection Respiratory: normal respiratory effort, lungs clear to auscultation no respiratory distress Cardiovascular: RRR, no murmur, no edema Gastrointestinal (Abdomen): Inspection/Auscultation: abdomen normal to inspection; abdomen not distended Percussion/Palpation: abdomen soft; abdomen nontender, no guarding and abdomen not rigid Musculoskeletal: no cyanosis or clubbing, extremities motor strength 5/5 Skin: no rashes, warm and dry Neurologic: moves all extremities and awake Psychiatric: Orientation: alert, oriented to person and cooperative Results & Data Results & Data ([facility]) Vital Signs (Past 12 Hours) Vital Signs Temp Pulse Pulse Resp BP BP Pulse Ox 07/05/20 14:46 88 07/05/20 14:38 36.5 C 86 18 111/69 97 07/05/20 11:41 36.8 C 77 16 103/70 96 07/05/20 08:13 36.6 C 88 18 105/69 98 07/05/20 07:05 36.7 C 71 18 98/60 L 98 07/05/20 07:03 78 07/05/20 03:08 37.0 C 84 18 104/68 97 PG Care Time/CCT Total # of Minutes Spent Total Time Spent with Patient: Total time spent is greater than 50% in coordination of care (as documented) at patient's floor/unit and/or counseling patient: Coding Level of Care Code 79154 Subseq Hosp Care Lvl 2 Diagnoses Leukocytosis D72.829 Leukocytosis type: unspecified Abnormal laboratory test R89.9 Cirrhosis of liver K74.69 Hepatic cirrhosis type: other cirrhosis Esophageal varices I85.10 Esophageal varices type: secondary Esophageal varices bleeding: without bleeding Hypothyroidism E03.9 Hypothyroidism type: unspecified GERD (gastroesophageal reflux disease) K21.9 Esophagitis presence: without esophagitis CKD (chronic kidney disease), stage III N18.31 Chronic kidney disease stage 3 subtype: stage 3a (GFR 45-59) Portal hypertension K76.6 Controlled type 2 diabetes mellitus, with long-term current use of insulin E11.9; Z79.4 Diabetes mellitus complication status: without complication (1) Leukocytosis Leukocytosis type: unspecified Qualified Code(s): D72.829 - Elevated white blood cell count, unspecified (2) Cirrhosis of liver Hepatic cirrhosis type: other cirrhosis Qualified Code(s): K74.69 - Other cirrhosis of liver (3) Esophageal varices Esophageal varices type: secondary Esophageal varices bleeding: without bleeding Qualified Code(s): I85.10 - Secondary esophageal varices without bleeding (4) Hypothyroidism Hypothyroidism type: unspecified Qualified Code(s): E03.9 - Hypothyroidism, unspecified (5) GERD (gastroesophageal reflux disease) Esophagitis presence: without esophagitis Qualified Code(s): K21.9 - Gastro- esophageal reflux disease without esophagitis (6) CKD (chronic kidney disease), stage III Chronic kidney disease stage 3 subtype: stage 3a (GFR 45-59) Qualified Code(s): N18.31 - Chronic kidney disease, stage 3a (7) Controlled type 2 diabetes mellitus, with long-term current use of insulin Diabetes mellitus complication status: without complication Qualified Code(s): E11.9 - Type 2 diabetes mellitus without complications; Z79.4 - assisted (current) use of insulin
[2020-07-06] MEDS: LEVOTHYROXINE SODIUM 175 MCG TABLET PO SCH (05:56)
[2020-07-06] MEDS: metroNIDAZOLE 250 MG/50 ML BAG IV SCH ×3 (05:56→21:58)
[2020-07-06 07:39] LABS: Basophils # (auto) 0.03 K/uL (0-0.2); Basophils % (auto) 0.4 %; Eosinophils # (auto) 0.35 K/uL (0-0.5); Eosinophils % (auto) 4.9 %; Hematocrit (blood only) 38.3 % (42-52); Hemoglobin 12.9 g/dL (14.0-18.0); Immature Granulocytes # (auto) 0.01 K/uL (0.00-0.02); Immature Granulocytes % (auto) 0.1 %; Lymphocytes # (auto) 0.71 K/uL (1.2-3.4); Lymphocytes % (auto) 9.9 %; Mean Corpuscular Hemoglobin 32.7 pg (25-34); Mean Corpuscular Hgb Conc 33.7 g/dL (32-36); Mean Platelet Volume 10.1 fL (7.4-10.4); Monocytes % (auto) 18.1 %; Neutrophils % (auto) 66.6 %; Platelet Count 156 K/uL (130-400); RDW Coefficient of Variation 14.8 % (11.5-14.5); RDW Standard Deviation 52.9 fL (36.4-46.3); Red Blood Count 3.95 M/uL (4.7-6.1)
[2020-07-06 08:04] LABS: Albumin Level 2.8 gm/dl (3.4-5.0); BUN Creatinine Ratio 11.9 (10-20); Calcium 9.2 mg/dl (8.5-10.1); Creatinine Clr Calc Pharmacy 63.8 ml/min; Est GFR (African American) 67.3; Est GFR (Non-African American) 58.1; Magnesium 2.1 mg/dl (1.8-2.4)
[2020-07-06] MEDS: INSULIN GLARGINE SOLOSTAR 100 UNITS/ML 3 ML PEN SQ SCH (08:23)
[2020-07-06] MEDS: SPIRONOLACTONE 25 MG TAB PO SCH (08:24)
[2020-07-06] MEDS: FERROUS SULFATE 325 MG TAB PO SCH ×2 (08:24→20:07)
[2020-07-06] MEDS: PANTOprazole 40 MG TAB PO SCH ×2 (08:24→20:07)
[2020-07-06] MEDS: CYANOCOBALAMIN 500 MCG TABLET (VITAMIN B-12) PO SCH (08:24)
[2020-07-06] MEDS: CHOLECALCIFEROL 1,000 UNITS 25 MCG TAB PO SCH ×2 (08:24→20:06)
[2020-07-06] MEDS: FUROSEMIDE 20 MG TAB PO SCH (08:24)
[2020-07-06 08:25] LABS: Albumin Globulin Ratio 0.6 (0.9-2); Bilirubin,Total 2.1 mg/dl (0.2-1); Globulin 4.7 gm/dl (2.5-4.0); Thyroid Stimulating Hormone 0.874 uIu/ml (0.300-4.500); Total Protein 7.5 gm/dl (6.4-8.2)
[2020-07-06] MEDS: buPROPion SR 150 MG TABCR PO SCH ×2 (08:25→20:06)
[2020-07-06] MEDS: CALCIUM CARBONATE 1250MG TAB PO SCH ×2 (08:25→20:06)
[2020-07-06] MEDS: INSULIN ASPART 100 UNITS/ML 3 ML PEN SC SCH ×4 (08:25→20:16)
[2020-07-06] MEDS: CEFEPIME 2,000 MG in SYRINGE 0 ML IV SCH ×2 (09:00→20:07)
--- NOTE | 2020-07-06 13:47 | Hospitalist Progress Note ---
Date of Service July 06, 2020 Assessment & Plan (1) Gram-negative bacteremia: Anaerobic gram-negative present and blood culture from July 03. Infectious disease consultation pending. Continue cefepime and Flagyl for now. White blood cell count and liver enzymes downtrending. (2) Leukocytosis: COVID negative, flu, RSV negative. SIRS-3, qSOFA- 1, PCT 0.44, NLR 7:1, Lactate 3.3--->2.7 CXR clear, CT scan of abdomen clear Technically meets sepsis, but is normally tachycardic White blood cell count now downtrending with parenteral antibiotic therapy. (3) Abnormal laboratory test: Liver profile is now downtrending with treatment. He has a known common bile duct stent placed in 2013. A sending cholangitis is a concern but seems to be responding to cefepime and Flagyl therapy. White blood cell count is downtrending also. GI consultation appreciated. Await infectious disease consultation and recommendations. (4) Cirrhosis of liver: has biliary stent-placed in 2013 GI consult appreciated. Common bile duct stent stenosis is a concern Liver enzymes were normal in April No jaundice. (5) Esophageal varices: No acute changes. No evidence of active bleeding. Grade I (6) Hypothyroidism: TSH was 0.616 in 04/2019. Continue synthroid replacement therapy (7) GERD (gastroesophageal reflux disease): Continue omeprazole 40 mg (8) CKD (chronic kidney disease), stage III: No acute needs, no evidence of organ dysfunction- CTA of abdomen 07/03/20 negative for hydronephrosis or ureter obstruction Avoid nephrotoxic medications. Monitor intake and output. Serial labs (9) Portal hypertension: Stable. Treated with Lasix and spironolactone (10) Controlled type 2 diabetes mellitus, with long-term current use of insulin: Cotninue Lantus and sliding scale. Diabetic diet - hold metformin temporarily DVT prophylaxis: Ambulation Disposition: Arrangements have been made to transfer to [facility] in [place] when bed is available but he might be able to be discharged on oral antibiotics and follow-up with them as an outpatient. Await infectious disease consultation and recommendations. Admission and Anticipated Discharge Date Admission Date: July 03, 2020 Subjective Alert and oriented. 1 blood culture from July 03 growing anaerobic gram- negative bacillus. He remains on cefepime and Flagyl. Infectious disease consultation requested. Overall he is improving with downtrending white blood cell count and liver enzymes. He may not need acute transfer to [facility] and could possibly be discharged on oral antibiotics and follow-up with [facility] as an outpatient. Will await infectious disease recommendations. Review of Systems Review of Systems: All systems reviewed & are unremarkable except as noted in HPI & below Physical Exam Physical Exam: General-alert and oriented x3, no fevers, no chills HEENT-head atraumatic and normocephalic, pupils equal and reactive to light, extraocular muscles intact Neck-no lymphadenopathy or thyromegaly, trachea midline Chest-clear to auscultation percussion. No rales wheezing or rhonchi Cardiac-regular rate and rhythm, normal S1 and S2, no murmurs Abdomen-normal bowel sounds, nontender, no hepatosplenomegaly Extremities-no cyanosis, clubbing, or edema Neuro-cranial nerves II through XII intact, motor and sensory function within normal limits, strength symmetrical , no focal deficits Psych-normal affect, normal mood Results & Data Results & Data ([facility]) Vital Signs (Past 12 Hours) Vital Signs Temp Pulse Pulse Resp BP Pulse Ox 07/06/20 11:30 36.7 C 88 16 119/72 97 07/06/20 07:21 36.6 C 78 16 113/78 98 07/06/20 02:45 36.5 C 81 18 98/62 L 96 07/06/20 02:05 69 Laboratory Results 07/06/20 07:17 07/06/20 07:17 PG Care Time/CCT Total # of Minutes Spent Total Time Spent with Patient: Total time spent is greater than 50% in coordin ation of care (as documented) at patient's floor/unit and/or counseling patient: Coding Level of Care Code 59033 Subseq Hosp Care Lvl 3 Diagnoses Gram-negative bacteremia R78.81 Leukocytosis D72.829 Leukocytosis type: unspecified Abnormal laboratory test R89.9 Cirrhosis of liver K74.69 Hepatic cirrhosis type: other cirrhosis Esophageal varices I85.10 Esophageal varices type: secondary Esophageal varices bleeding: without bleeding Hypothyroidism E03.9 Hypothyroidism type: unspecified GERD (gastroesophageal reflux disease) K21.9 Esophagitis presence: without esophagitis CKD (chronic kidney disease), stage III N18.31 Chronic kidney disease stage 3 subtype: stage 3a (GFR 45-59) Portal hypertension K76.6 Controlled type 2 diabetes mellitus, with long-term current use of insulin E11.9; Z79.4 Diabetes mellitus complication status: without complication (1) Leukocytosis Leukocytosis type: unspecified Qualified Code(s): D72.829 - Elevated white blood cell count, unspecified (2) Cirrhosis of liver Hepatic cirrhosis type: other cirrhosis Qualified Code(s): K74.69 - Other cirrhosis of liver (3) Esophageal varices Esophageal varices type: secondary Esophageal varices bleeding: without bleeding Qualified Code(s): I85.10 - Secondary esophageal varices without bleeding (4) Hypothyroidism Hypothyroidism type: unspecified Qualified Code(s): E03.9 - Hypothyroidism, unspecified (5) GERD (gastroesophageal reflux disease) Esophagitis presence: without esophagitis Qualified Code(s): K21.9 - Gastro- esophageal reflux disease without esophagitis (6) CKD (chronic kidney disease), stage III Chronic kidney disease stage 3 subtype: stage 3a (GFR 45-59) Qualified Code(s): N18.31 - Chronic kidney disease, stage 3a (7) Controlled type 2 diabetes mellitus, with long-term current use of insulin Diabetes mellitus complication status: without complication Qualified Code(s): E11.9 - Type 2 diabetes mellitus without complications; Z79.4 - terminal block assembler (current) use of insulin
[2020-07-07] MEDS: LEVOTHYROXINE SODIUM 175 MCG TABLET PO SCH (06:05)
[2020-07-07] MEDS: metroNIDAZOLE 250 MG/50 ML BAG IV SCH ×3 (06:06→21:55)
[2020-07-07] MEDS: PANTOprazole 40 MG TAB PO SCH ×2 (07:19→20:22)
[2020-07-07] MEDS: buPROPion SR 150 MG TABCR PO SCH ×2 (07:19→20:22)
[2020-07-07] MEDS: SPIRONOLACTONE 25 MG TAB PO SCH (07:19)
[2020-07-07] MEDS: FUROSEMIDE 20 MG TAB PO SCH (07:19)
[2020-07-07] MEDS: CALCIUM CARBONATE 1250MG TAB PO SCH ×2 (07:20→20:22)
[2020-07-07] MEDS: FERROUS SULFATE 325 MG TAB PO SCH ×2 (07:20→20:22)
[2020-07-07] MEDS: CHOLECALCIFEROL 1,000 UNITS 25 MCG TAB PO SCH ×2 (07:20→20:22)
[2020-07-07] MEDS: CYANOCOBALAMIN 500 MCG TABLET (VITAMIN B-12) PO SCH (07:20)
[2020-07-07 08:09] LABS: Basophils # (auto) 0.03 K/uL (0-0.2); Basophils % (auto) 0.5 %; Eosinophils # (auto) 0.38 K/uL (0-0.5); Eosinophils % (auto) 6.3 %; Hematocrit (blood only) 38.9 % (42-52); Hemoglobin 13.4 g/dL (14.0-18.0); Immature Granulocytes # (auto) 0.01 K/uL (0.00-0.02); Immature Granulocytes % (auto) 0.2 %; Lymphocytes # (auto) 0.86 K/uL (1.2-3.4); Lymphocytes % (auto) 14.2 %; Mean Corpuscular Hemoglobin 32.9 pg (25-34); Mean Corpuscular Hgb Conc 34.4 g/dL (32-36); Mean Corpuscular Volume 95.6 fL (80-100); Mean Platelet Volume 10.5 fL (7.4-10.4); Monocytes # (auto) 1.07 K/uL (0.11-0.59); Monocytes % (auto) 17.7 %; Neutrophils # (auto) 3.71 K/uL (1.4-6.5); Neutrophils % (auto) 61.1 %; Platelet Count 171 K/uL (130-400); RDW Coefficient of Variation 14.7 % (11.5-14.5); RDW Standard Deviation 51.4 fL (36.4-46.3); Red Blood Count 4.07 M/uL (4.7-6.1); White Blood Count 6.06 K/uL (4.8-10.8)
[2020-07-07] MEDS: INSULIN ASPART 100 UNITS/ML 3 ML PEN SC SCH ×4 (08:33→20:16)
[2020-07-07] MEDS: INSULIN GLARGINE SOLOSTAR 100 UNITS/ML 3 ML PEN SQ SCH (08:34)
[2020-07-07] MEDS: CEFEPIME 2,000 MG in SYRINGE 0 ML IV SCH ×2 (08:36→20:22)
[2020-07-07 08:39] LABS: Albumin Globulin Ratio 0.6 (0.9-2); Albumin Level 2.8 gm/dl (3.4-5.0); BUN Creatinine Ratio 14.2 (10-20); Bilirubin,Total 1.8 mg/dl (0.2-1); Calcium 9.2 mg/dl (8.5-10.1); Creatinine Clr Calc Pharmacy 73.4 ml/min; Est GFR (African American) 79.7; Est GFR (Non-African American) 68.8; Globulin 4.6 gm/dl (2.5-4.0); Potassium 3.7 mmol/L (3.5-5.1); Total Protein 7.4 gm/dl (6.4-8.2)
--- NOTE | 2020-07-07 12:54 | Hospitalist Progress Note ---
Date of Service July 07, 2020 Assessment & Plan (1) Gram-negative bacteremia: Gram-negative present and blood culture from July 03. Final identification and sensitivity should be available tomorrow morning, July 08. Infectious disease consultation appreciated . Continue cefepime and Flagyl for now. White blood cell count and liver enzymes downtrending. (2) Leukocytosis: COVID negative, flu, RSV negative. SIRS-3, qSOFA- 1, PCT 0.44, NLR 7:1, Lactate 3.3--->2.7 CXR clear, CT scan of abdomen clear Technically meets sepsis, but is normally tachycardic White blood cell count now downtrending with parenteral antibiotic therapy. (3) Abnormal laboratory test: Liver profile is now downtrending with treatment. He has a known common bile duct stent placed in 2013. Suspect ascending cholangitis as probable cause of current infection. Improving with cefepime and Flagyl therapy. GI consultation appreciated. (4) Cirrhosis of liver: has biliary stent-placed in 2013 GI consult appreciated. Common bile duct stent stenosis is a concern. He will follow-up with his specialist at [facility] at a later date Liver enzymes were normal in April No jaundice. (5) Esophageal varices: No acute changes. No evidence of active bleeding. Grade I (6) Hypothyroidism: TSH was 0.616 in 04/2019. Continue synthroid replacement therapy (7) GERD (gastroesophageal reflux disease): Continue omeprazole 40 mg (8) CKD (chronic kidney disease), stage III: No acute needs, no evidence of organ dysfunction- CTA of abdomen 07/03/20 negative for hydronephrosis or ureter obstruction Avoid nephrotoxic medications. Monitor intake and output. Serial labs (9) Portal hypertension: Stable. Treated with Lasix and spironolactone (10) Controlled type 2 diabetes mellitus, with long-term current use of insulin: Cotninue Lantus and sliding scale. Diabetic diet - hold metformin temporarily DVT prophylaxis: Ambulation Disposition: Arrangements have been made to transfer to [facility] in [place] when bed is available but he probably will be discharged tomorrow, July 08, on oral antibiotics. He can follow-up with [facility] as an outpatient. Admission and Anticipated Discharge Date Admission Date: July 03, 2020 Subjective Alert and oriented. He remains afebrile. I spoke with microbiology and they will not have final identification of the gram-negative concepcion until tomorrow morning. Infectious disease entry noted. He will be switched to oral antibiotic tomorrow to complete a 14-day course and then go home. He can follow-up with [facility] at a later date. I suspect he had some degree of a ascending cholangitis causing the current infection. Liver enzymes and total bilirubin continue to trend downward Review of Systems Review of Systems: All systems reviewed & are unremarkable except as noted in HPI & below Physical Exam Physical Exam: General-alert and oriented x3, no fevers, no chills HEENT-head atraumatic and normocephalic, pupils equal and reactive to light, extraocular muscles intact Neck-no lymphadenopathy or thyromegaly, trachea midline Chest-clear to auscultation percussion. No rales wheezing or rhonchi Cardiac-regular rate and rhythm, normal S1 and S2, no murmurs Abdomen-normal bowel sounds, nontender, no hepatosplenomegaly Extremities-no cyanosis, clubbing, or edema Neuro-cranial nerves II through XII intact, motor and sensory function within normal limits, strength symmetrical , no focal deficits Psych-normal affect, normal mood Results & Data Results & Data ([facility]) Vital Signs (Past 12 Hours) Vital Signs Temp Pulse Resp BP BP Pulse Ox 07/07/20 11:36 36.7 C 78 20 114/77 97 07/07/20 07:53 36.6 C 71 16 112/75 96 07/07/20 04:16 36.7 C 75 16 104/68 99 Laboratory Results 07/07/20 07:34 07/07/20 07:34 PG Care Time/CCT Total # of Minutes Spent Total Time Spent with Patient: Total time spent is greater than 50% in coordination of care (as documented) at patient's floor/unit and/or counseling patient: Coding Level of Care Code 68041 Subseq Hosp Care Lvl 3 Diagnoses Gram-negative bacteremia R78.81 Leukocytosis D72.829 Leukocytosis type: unspecified Abnormal laboratory test R89.9 Cirrhosis of liver K74.69 Hepatic cirrhosis type: other cirrhosis Esophageal varices I85.10 Esophageal varices type: secondary Esophageal varices bleeding: without bleeding Hypothyroidism E03.9 Hypothyroidism type: unspecified GERD (gastroesophageal reflux disease) K21.9 Esophagitis presence: without esophagitis CKD (chronic kidney disease), stage III N18.31 Chronic kidney disease stage 3 subtype: stage 3a (GFR 45-59) Portal hypertension K76.6 Controlled type 2 diabetes mellitus, with long-term current use of insulin E11.9; Z79.4 Diabetes mellitus complication status: without complication (1) Leukocytosis Leukocytosis type: unspecified Qualified Code(s): D72.829 - Elevated white blood cell count, unspecified (2) Cirrhosis of liver Hepatic cirrhosis type: other cirrhosis Qualified Code(s): K74.69 - Other cirrhosis of liver (3) Esophageal varices Esophageal varices type: secondary Esophageal varices bleeding: without bleeding Qualified Code(s): I85.10 - Secondary esophageal varices without bleeding (4) Hypothyroidism Hypothyroidism type: unspecified Qualified Code(s): E03.9 - Hypothyroidism, unspecified (5) GERD (gastroesophageal reflux disease) Esophagitis presence: without esophagitis Qualified Code(s): K21.9 - Gastro- esophageal reflux disease without esophagitis (6) CKD (chronic kidney disease), stage III Chronic kidney disease stage 3 subtype: stage 3a (GFR 45-59) Qualified Code(s): N18.31 - Chronic kidney disease, stage 3a (7) Controlled type 2 diabetes mellitus, with long-term current use of insulin Diabetes mellitus complication status: without complication Qualified Code(s): E11.9 - Type 2 diabetes mellitus without complications; 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
[2020-07-08] MEDS: metroNIDAZOLE 250 MG/50 ML BAG IV SCH (05:55)
[2020-07-08] MEDS: LEVOTHYROXINE SODIUM 175 MCG TABLET PO SCH (05:55)
[2020-07-08 07:15] LABS: Basophils # (auto) 0.04 K/uL (0-0.2); Basophils % (auto) 0.7 %; Eosinophils # (auto) 0.42 K/uL (0-0.5); Eosinophils % (auto) 7.1 %; Hematocrit (blood only) 39.1 % (42-52); Hemoglobin 13.5 g/dL (14.0-18.0); Immature Granulocytes # (auto) 0.01 K/uL (0.00-0.02); Immature Granulocytes % (auto) 0.2 %; Lymphocytes # (auto) 1.03 K/uL (1.2-3.4); Lymphocytes % (auto) 17.5 %; Mean Corpuscular Hemoglobin 33.2 pg (25-34); Mean Corpuscular Hgb Conc 34.5 g/dL (32-36); Mean Corpuscular Volume 96.1 fL (80-100); Mean Platelet Volume 10.5 fL (7.4-10.4); Monocytes # (auto) 0.99 K/uL (0.11-0.59); Monocytes % (auto) 16.8 %; Neutrophils # (auto) 3.39 K/uL (1.4-6.5); Neutrophils % (auto) 57.7 %; Platelet Count 189 K/uL (130-400); RDW Coefficient of Variation 14.9 % (11.5-14.5); RDW Standard Deviation 52.1 fL (36.4-46.3); Red Blood Count 4.07 M/uL (4.7-6.1); White Blood Count 5.88 K/uL (4.8-10.8)
[2020-07-08 07:42] LABS: Albumin Level 2.9 gm/dl (3.4-5.0); BUN Creatinine Ratio 15.2 (10-20); Calcium 8.6 mg/dl (8.5-10.1); Creatinine Clr Calc Pharmacy 74.1 ml/min; Est GFR (African American) 80.6; Est GFR (Non-African American) 69.5
[2020-07-08 07:45] LABS: Albumin Globulin Ratio 0.6 (0.9-2); Bilirubin,Total 1.6 mg/dl (0.2-1); Globulin 4.9 gm/dl (2.5-4.0); Total Protein 7.8 gm/dl (6.4-8.2)
[2020-07-08] MEDS: CHOLECALCIFEROL 1,000 UNITS 25 MCG TAB PO SCH (08:00)
[2020-07-08] MEDS: PANTOprazole 40 MG TAB PO SCH (08:00)
[2020-07-08] MEDS: CALCIUM CARBONATE 1250MG TAB PO SCH (08:00)
[2020-07-08] MEDS: buPROPion SR 150 MG TABCR PO SCH (08:00)
[2020-07-08] MEDS: FUROSEMIDE 20 MG TAB PO SCH (08:00)
[2020-07-08] MEDS: FERROUS SULFATE 325 MG TAB PO SCH (08:00)
[2020-07-08] MEDS: SPIRONOLACTONE 25 MG TAB PO SCH (08:00)
[2020-07-08] MEDS: CYANOCOBALAMIN 500 MCG TABLET (VITAMIN B-12) PO SCH (08:00)
[2020-07-08] MEDS: CEFEPIME 2,000 MG in SYRINGE 0 ML IV SCH (08:00)
[2020-07-08] MEDS: INSULIN GLARGINE SOLOSTAR 100 UNITS/ML 3 ML PEN SQ SCH (08:00)
[2020-07-08] MEDS: INSULIN ASPART 100 UNITS/ML 3 ML PEN SC SCH (08:01)
--- NOTE | 2020-07-08 10:36 | Discharge Summary ---
Date of Service July 08, 2020 Admission HPI Per Admitting Provider 64 YOM with past medical history of liver cirrhosis, presumed liver cancer, biliary stent placement, cholecystectomy, liver lobe resection, DM II on insulin, CKD III, HTN, HLD, Hypothyroidism, Grade Esophageal varices, portal hypertension, and diabetic neuropathy. Patient has been on transplant list since 2014, last MELD was 11. He recently underwent a EGD last month, as well as MRI last week of his abdomen for routine following. He comes into the emergency room today for non-specific "cold" like symptoms. He had a slight bilateral temporal hedache last night that only lasted a few minutes and went away. He woke up this morning with feeling of some post nasal drip, feeling generalized achy and febrile. He took his temperature at 10 and was normal, took it again at 11 and was 101.3. He took 1 500mg Tylenol and rechecked his temperature at 1200 and was 101.4 so he came to the emergency room. Was worked up in the emergency room with CXR, ECG, blood cultures, lactate of 3.3, WBC 12.3. Was given 1 dose of Cefepime and 2liters of 0.9% normal saline and hospitalist service was called for admission. Patient is in room, not ill appearing, and well perfused. His HR is mildly elevated over his baseline of 90-110, BP is at his baseline. He was sent for a CTA of his abdomen for elevation of his total bili to 2.9; AST 195, ALT, 132, and ALK po4 of 144. His abdomen is not tender. He will be admitted for continued workup and trending of his labs and biomarkers. [facility] Dr. Ring promotions producer was consulted. Patient original workup was started in 2013 where he arrived to [facility] jaundiced and ill. He was noted to have a bile duct stricture, where he had biliary stent placed. There was concern for cholangiocarcinoma and was referred to [facility] where he had a hepatic resection and Nacho-en-Y hepatojejunostomy. 2014 he had an GI Bleed from [facility] and was found to have esophageal varices at that time. His liver biopsy and colectomy apparently never confirmed his diagnosis. He has been on the liver transplant list since 2014, his most recent MELD before today was 11, he gets his normal screenings with EGD and colonoscopies here and follows up with [facility] every 6 months. Principal Diagnosis E. coli bacteremia, suspected ascending cholangitis Discharge Data Allergies Allergy/AdvReac Type Severity Reaction Status Date / Time exenatide [From [place]] AdvReac Intermediate Diarrhea Verified 07/03/20 15:06 Consultations 07/03/20 15:52 ED Decision to Admit Stat 07/03/20 18:46 Consult Gastroenterology Routine 07/06/20 08:50 Consult Infectious Diseases Routine 07/07/20 08:07 Burn CD for patient Routine Ordered Studies 07/03/20 16:00 CT abdomen w IV con Urgent Hospital Course (1) Gram-negative bacteremia: Gram-negative present and blood culture from July 03. E. coli isolated. Pansensitive. He will be discharged on Cipro for 10 more days. Infectious disease consultation appreciated . Treated with cefepime and Flagyl while hospitalized . White blood cell count and liver enzymes downtrending. (2) Leukocytosis: COVID negative, flu, RSV negative. SIRS-3, qSOFA- 1, PCT 0.44, NLR 7:1, Lactate 3.3--->2.7 CXR clear, CT scan of abdomen clear Technically meets sepsis, but is normally tachycardic White blood cell count now downtrending with parenteral antibiotic therapy. (3) Abnormal laboratory test: Liver profile is now downtrending with treatment. He has a known common bile duct stent placed in 2013. Suspect ascending cholangitis as probable cause of current infection. Improving with cefepime and Flagyl therapy. GI and infectious disease consultations appreciated. (4) Cirrhosis of liver: has biliary stent-placed in 2013 GI consult appreciated. Common bile duct stent stenosis is a concern. He will follow-up with his specialist at [facility] at a later date Liver enzymes were normal in April No jaundice. (5) Esophageal varices: No acute changes. No evidence of active bleeding. Grade I (6) Hypothyroidism: TSH was 0.616 in 04/2019. Continue synthroid replacement therapy (7) GERD (gastroesophageal reflux disease): Continue omeprazole 40 mg (8) CKD (chronic kidney disease), stage III: No acute needs, no evidence of organ dysfunction- CTA of abdomen 07/03/20 negative for hydronephrosis or ureter obstruction Avoid nephrotoxic medications. Monitor intake and output. Serial labs (9) Portal hypertension: Stable. Treated with Lasix and spironolactone (10) Controlled type 2 diabetes mellitus, with long-term current use of insulin: Cotninue Lantus and sliding scale. Diabetic diet - hold metformin temporarily DVT prophylaxis: Ambulation Disposition: Discharge home today, July 08, on Cipro 500 mg twice daily for 10 more days. He will follow-up as an outpatient with [facility] for further evaluation and treatment. 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 Pryor was admitted with fever, aches, signs of sepsis that we believe are related to his liver and biliary system. GI saw him and felt that this may be an issue with his hepaticojejunostomy anastomosis and felt transfer to his surgical center was appropriate. While here, he has improved some sepsis standpoint while on cefepime and metronidazo le. Blood cultures negative as of 07/05/2020. Pending Studies at Discharge: No Stand-Alone Forms: My [facility] Skilled Items Patient informed of condition?: No DNR: No Discharge Level of Care: Other Communicable Disease: No Discharge Prognosis: Stable Lines: Peripheral IV Urinary Catheter: No Medications and DC Order Prescriptions: Continued biotin 10 mg tablet 10 mg PO QAM Qty: 30 RF: 0 ferrous sulfate [iron] 325 mg (65 mg iron) tablet 325 mg PO BID Qty: 60 RF: 0 (DME) OneTouch Ultra Blue Test Strip strip See Dose Instructions .ROUTE .MEDSUPPLY Qty: 10 RF: 0 ondansetron 4 mg tablet,disintegrating See Rx Instructions .ROUTE .COMPLEX Qty: 30 RF: 3 levothyroxine 175 mcg tablet 175 mcg PO QAM Qty: 90 RF: 3 Lantus Solostar U-100 Insulin 100 unit/mL (3 mL) insulin pen 15 unit subcut QAM Qty: 15 RF: 5 (DME) pen needle, diabetic [BD Ultra-Fine Serena Pen Needle] 32 gauge x 5/32" needle See Dose Instructions .ROUTE .MEDSUPPLY Qty: 100 RF: 11 cyanocobalamin (vitamin B-12) 1,000 mcg capsule 1,000 mcg PO QAM RF: 0 cannabidiol (CBD) extract 1 dose PO BID RF: 0 cholecalciferol (vitamin D3) [Vitamin D3] 2,000 unit capsule 1,000 unit PO BID RF: 0 calcium carbonate [Calcium 600] 600 mg calcium (1,500 mg) Tablet 600 mg PO BID RF: 0 bupropion HCl 150 mg tablet sustained-release 12 hr 150 mg PO BID RF: 0 omeprazole 40 mg capsule,delayed release(DR/EC) 40 mg PO BID RF: 0 furosemide 20 mg tablet 20 mg PO QAM RF: 0 spironolactone 50 mg tablet 50 mg PO QAM RF: 0 insulin aspart U-100 [Novolog U-100 Insulin aspart] 100 unit/mL Solution 1 sliding scale dose SUBCUT USEASDIRECTD RF: 0 acetaminophen [Tylenol Extra Strength] 500 mg Tablet 500 mg PO Q6H PRN (Reason: Pain) RF: 0 Discontinued simvastatin 20 mg tablet 20 mg PO HS Qty: 90 RF: 3 metformin 1,000 mg tablet 1,000 mg PO BID RF: 0 Admission Data Admit Date/Time: 07/03/20 17:27 Attending Provider: Michele Chery Admit Provider: Ramone Jason Primary Care Provider: Neelam Cooper Other Providers: Ebonie Sandhu ; Rodri Simms ; Tyson Marin ; Manuel Yang I. ; Woo Aguirre II ; Maria Ines Garcia ; Hesham Brand Coding Level of Care Code D/C Day Management >30 mins Diagnoses Gram-negative bacteremia R78.81 Leukocytosis D72.829 Leukocytosis type: unspecified Abnormal laboratory test R89.9 Cirrhosis of liver K74.69 Hepatic cirrhosis type: other cirrhosis Esophageal varices I85.10 Esophageal varices type: secondary Esophageal varices bleeding: without bleeding Hypothyroidism E03.9 Hypothyroidism type: unspecified GERD (gastroesophageal reflux disease) K21.9 Esophagitis presence: without esophagitis CKD (chronic kidney disease), stage III N18.31 Chronic kidney disease stage 3 subtype: stage 3a (GFR 45-59) Portal hypertension K76.6 Controlled type 2 diabetes mellitus, with long-term current use of insulin E11.9; Z79.4 Diabetes mellitus complication status: without complication
== END 2020-07-08 11:19 | disposition home or self-care (01) | DRG 871 ==
LOC: ED 12:58 → SUATTDRO 17:27 → 2W 17:27

== ENCOUNTER 2021-09-03 19:50 | Inpatient (IN) ==
[2021-09-03] MEDS ORDERED: ONDANSETRON INJ 2 MG/ML 2 ML VIAL IV STA ×2 (20:10→22:37)
[2021-09-03] MEDS ORDERED: IBUPROFEN 600 MG TAB PO STA (20:10)
[2021-09-03] MEDS ORDERED: SODIUM CHLORIDE 0.9% 1000ML 1,000 ML IV ONE ×2 (20:10→22:23)
--- NOTE | 2021-09-03 20:31 | Emergency Department Note ---
Impression & Plan Fever, Colitis, Acidosis, lactic ED Provider Note NAME: LAKISHA WERNER AGE: 65 SEX: M : 1955 ARRIVES VIA: Walk-In INFORMANT: Patient, ED PROVIDER(S): Liam Wilkes DO CHIEF COMPLAINT: Fever HPI: The patient is a 65-year-old male who presented to the emergency department for an evaluation of fever. The patient started noticing febrile illness earlier today. He is also been noticing rigors. The patient denies having any chest pain or difficulty breathing. He said no cough. He denies having any sore throat symptoms. He does complain of nausea and vomiting. He noticed some back pain as well. He denies having any rashes. He denies having any black or bloody bowel moods. His emesis was betancur in color. He denies having any hematemesis or hemoptysis. The patient took Tylenol prior to coming to the emergency department. At that time he was noted to have a fever 101 degrees. The patient does have a history of cirrhosis. ROS: See above HPI for pertinent positives & negatives. A total of 10 systems reviewed and were otherwise negative. PAST MEDICAL HISTORY: See Below PAST SURGICAL HISTORY: See Below FAMILY HISTORY: See Below SOCIAL HISTORY: See Below HOME MEDICATIONS: See Below ALLERGIES: See Below VITALS: See Below PHYSICAL EXAMINATION: GENERAL: The patient is awake and alert. He is somewhat anxious appearing. EYES: The conjunctivae are clear. The pupils are round and reactive. EARS, NOSE, MOUTH AND THROAT: The nose is without any evidence of any deformity. NECK: The neck is nontender and supple. RESPIRATORY: Normal respiratory effort is noted there is no evidence of wheezing rhonchi or rales CARDIOVASCULAR: Tachycardic rate with regular rhythm was noted. There is no definite murmur. GASTROINTESTINAL: Abdomen was distended. There was some tenderness in the upper abdomen but no guarding or rigidity. MUSCULOSKELETAL/EXTREMITIES: There is no evidence of gross deformity full range of motion is noted in the hips and shoulders. SKIN: The skin is cool and dry. No significant pedal edema was noted. NEUROLOGIC: Patient is awake alert and oriented x3 strength is symmetric patellar reflexes are 2+ bilaterally MEDICAL DECISION MAKING: The patient is a 65-year-old male who presented to the emergency department for an evaluation of fever. 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 Initially this was thought to be secondary to a tumor of neoplastic nature however it was found to be benign but the patient had obstructive issues and as a result he had cirrhosis. He had a stent in place. He has had previous episodes of infection in the past. He has had E. coli bacteremia in the past. He was treated with IV fluids and IV antibiotics in emergency department. He was reevaluated multiple times. He was significantly improved on reevaluation. Given his past medical history I discussed his case with the on-call [facility] hospitalist. They have agreed to evaluate the patient in the emergency department for further management and disposition. Triage Nursing notes reviewed. Prior medical records reviewed Vital Signs: reviewed and remarkable for tachycardia and fever. Differential diagnosis: Viral syndrome, otitis, pharyngitis, pneumonia, influenza, meningitis, urinary tract infection, sepsis, bacteremia, as well as other pathologies. ER treatment provided: See below Diagnostics interpreted by me: ECG: EKG was obtained in the emergency department. My interpretation is sinus tachycardia 119 bpm. Poor R wave progression was noted. There is no ectopy. Low voltage was noted throughout. This was compared to a tracing from July 03, 2020. No changes were noted. Cardiac Monitoring: An order was placed for continuous cardiac monitoring. The monitor shows a rate of 104 bpm with sinus tachycardia Laboratory studies: As stated above and show below. Imaging studies: See below Consultation(s): I discussed this case with Dr. Rojas Past Med/Surg History Medical History Anemia Cirrhosis of liver Depression DM type 2 (diabetes mellitus, type 2) IDDM Esophageal varices hx banding GERD (gastroesophageal reflux disease) GI bleed hx Gram-negative bacteremia History of ascites Hyperlipidemia Hypertension hx Hypothyroidism Peripheral neuropathy Post traumatic stress disorder Sepsis Surgical History History of abdominal paracentesis multiple (last 2 years ago) History of cholecystectomy History of colonoscopy History of ERCP History of esophagogastroduodenoscopy (EGD) History of herniorrhaphy WITH MESH-2018 History of surgery of liver Hepatic lobectomy (benign tumor) History of tooth extraction Hx of hand surgery RT HAND/ARM SURGERY (METAL PLATE D/T FX) Hx of vasectomy S/P debridement ABDOMINAL WOUND 2018 Family History Mother Diabetes Grandmother No problems noted. Grandmother (Maternal) Diabetes Family/Other Heart disease Cancer Hypertension Other No family history of adverse response to anesthesia Denies family history of Ovarian cancer Prostate cancer Myocardial infarction Breast cancer Colorectal cancer Social History Smoking Status: Never smoker Cigarettes Per Day: QUIT 35 YEARs ago; Second Hand Exposure: No; Hx Alcohol Use: No Hx Substance Use: No Preferred Language: Guamanian Communication Ability: Effective Administrative Sales Assistant Required: No Beliefs That Will Affect Care: None marital status: Current Living Situation: Spouse current occupational status: retired How many Children do You have: 3 Feels Safe at Home: Yes Childhood Exposure to Second-Hand Smoke: No caffeine: Yes Dental Care, Regularly: Yes Physical Activity Frequency: 3-4 Times per Week Seatbelt Use: always Sunscreen Use: No Assistive Devices: None Allergies Allergies Allergy/AdvReac Type Severity Reaction Status Date / Time exenatide [From Byetta] AdvReac Intermediate Diarrhea Verified 09/03/21 20:48 Home Meds Home Medications Medication Instructions Recorded Confirmed cyanocobalamin (vitamin B-12) 1,000 mcg PO QAM 11/25/18 09/03/21 1,000 mcg capsule calcium carbonate 600 mg calcium 600 mg PO BID 12/25/18 09/03/21 (1,500 mg) tablet (Calcium) cholecalciferol (vitamin D3) 50 1,000 unit PO BID 12/25/18 09/03/21 mcg (2,000 unit) capsule (Vitamin D3) cannabidiol (CBD) extract 1 dose PO BID 01/09/19 09/03/21 acetaminophen 500 mg tablet 500 mg PO Q6H PRN 07/03/20 09/03/21 (Tylenol Extra Strength) blood sugar diagnostic (OneTouch ea 02/10/21 04/07/21 Ultra Blue Test Strip) blood-glucose sensor (Dexcom G6 02/10/21 04/07/21 Sensor) insulin aspart U-100 100 unit/mL 0 unit SUBCUT DIRECTED 09/03/21 09/03/21 (3 mL) subcutaneous pen (Novolog Flexpen U-100 Insulin aspart) insulin glargine 100 unit/mL (3 15 unit SUBCUT QAM 09/03/21 09/03/21 mL) subcutaneous pen (Lantus Solostar U-100 Insulin) Previous Rx's Medication Instructions Recorded biotin 10 mg tablet 10 mg PO QAM #30 tab 08/11/18 ferrous sulfate 325 mg (65 mg 325 mg PO BID #60 tab 08/11/18 iron) tablet (iron) bupropion HCl 150 mg tablet,12 hr 150 mg PO BID #180 tab 06/27/21 sustained-release furosemide 20 mg tablet 20 mg PO QAM #90 tab 06/27/21 levothyroxine 175 mcg tablet 175 mcg PO QAM #90 tab 06/27/21 metformin 1,000 mg tablet 1,000 mg PO BID #120 tab 06/27/21 omeprazole 40 mg capsule,delayed 40 mg PO BID #120 cap 06/27/21 release ondansetron 4 mg disintegrating See Rx Instructions .ROUTE 06/27/21 tablet .COMPLEX #30 tab pen needle, diabetic 32 gauge x #100 ea 06/27/21 5" simvastatin 20 mg tablet 20 mg PO DAILY #90 tab 06/27/21 spironolactone 50 mg tablet 50 mg PO QAM #90 tab 06/27/21 pen needle, diabetic 31 gauge x #100 ea 07/19/2107/24" (TRUEplus Pen Needle) escitalopram oxalate 10 mg tablet 10 mg PO DAILY #90 tab 08/08/21 Results & Data (ED) Vital Signs Vital Signs - 24 hr 09/03/21 19:54 09/03/21 20:17 09/03/21 20:18 Temperature 38.4 C H Temperature Source Temporal Artery Scan Pulse Rate 129 H Pulse Rate [Apical] 116 H Pulse Rhythm [Apical] Respiratory Rate 18 18 16 Respiratory Effort / Characteristics Non-Labored Spontaneous Respiratory Depth Normal Blood Pressure 118/74 Blood Pressure [Left Arm] 123/79 Blood Pressure Mean 88 Blood Pressure Mean [Left Arm] 93 Blood Pressure Position Sitting Pulse Oximetry 96 96 96 Oxygen Delivery Method Room Air Room Air Room Air Sepsis Recent Fever Within 48 Hours Yes Sepsis New/Unexplained Change in Mental Status No Sepsis Action Taken by Nursing No Action Required 09/03/21 20:19 09/03/21 20:32 09/03/21 21:19 Temperature Temperature Source Pulse Rate Pulse Rate [Apical] 115 H 105 H 104 H Pulse Rhythm [Apical] Regular Respiratory Rate 16 16 16 Respiratory Effort / Characteristics Non-Labored Non-Labored Respiratory Depth Normal Blood Pressure Blood Pressure [Left Arm] 123/79 123/80 Blood Pressure Mean Blood Pressure Mean [Left Arm] 93 94 Blood Pressure Position Pulse Oximetry 95 95 96 Oxygen Delivery Method Room Air Room Air Room Air Sepsis Recent Fever Within 48 Hours Sepsis New/Unexplained Change in Mental Status Sepsis Action Taken by Nursing 09/03/21 22:44 09/03/21 22:45 09/03/21 22:48 Temperature Temperature Source Pulse Rate Pulse Rate [Apical] 101 H 104 H Pulse Rhythm [Apical] Respiratory Rate 16 16 Respiratory Effort / Characteristics Non-Labored Respiratory Depth Blood Pressure Blood Pressure [Left Arm] 117/75 Blood Pressure Mean Blood Pressure Mean [Left Arm] 89 Blood Pressure Position Pulse Oximetry 95 96 Oxygen Delivery Method Room Air Sepsis Recent Fever Within 48 Hours Sepsis New/Unexplained Change in Mental Status Sepsis Action Taken by Nursing 09/03/21 23:00 Temperature Temperature Source Pulse Rate Pulse Rate [Apical] 104 H Pulse Rhythm [Apical] Respiratory Rate 21 Respiratory Effort / Characteristics Non-Labored Respiratory Depth Blood Pressure Blood Pressure [Left Arm] 117/75 Blood Pressure Mean Blood Pressure Mean [Left Arm] 89 Blood Pressure Position Pulse Oximetry 94 Oxygen Delivery Method Room Air Sepsis Recent Fever Within 48 Hours Sepsis New/Unexplained Change in Mental Status Sepsis Action Taken by [facility] Medications Current Medication List: was personally reviewed by me Laboratory Data Attestation: I reviewed the patient's lab results. Result diagrams: 09/03/21 20:21 09/03/21 20:21 Lab Results 09/03/21 09/03/21 09/03/21 Range/Units 20:21 20:21 20:21 WBC 12.18 H (4.8-10.8) K/uL RBC 4.35 L (4.7-6.1) M/uL Hgb 15.0 (14.0-18.0) g/dL Hct 43.4 (42-52) % MCV 99.8 (80-100) fL MCH 34.5 H (25-34) pg MCHC 34.6 (32-36) g/dL RDW Std Deviation 54.1 H (36.4-46.3) fL RDW Coeff of Debby 14.8 H (11.5-14.5) % Plt Count 230 (130-400) K/uL MPV 10.6 H (7.4-10.4) fL Immature Gran % (Auto) 0.2 % Neut % (Auto) 93.0 % Lymph % (Auto) 3.0 % Christian % (Auto) 3.3 % Eos % (Auto) 0.3 % Baso % (Auto) 0.2 % Neut # (Auto) 11.32 H (1.4-6.5) K/uL Lymph # (Auto) 0.37 L (1.2-3.4) K/uL Christian # (Auto) 0.40 (0.11-0.59) K/uL Eos # (Auto) 0.04 (0-0.5) K/uL Baso # (Auto) 0.02 (0-0.2) K/uL Immature Gran # (Auto) 0.03 H (0.00-0.02) K/uL PT 11.9 (9.0-12.0) Seconds INR 1.1 (0.9-1.1) APTT 23.3 (21.0-31.0) Seconds PTT Ratio 0.8 Sodium 133 L (136-145) mmol/L Potassium 4.2 (3.5-5.1) mmol/L Chloride 99 (98-107) mmol/L Carbon Dioxide 22 (21-32) mmol/L Anion Gap 12 H (3-11) BUN 12 (6-23) mg/dl Creatinine 1.16 (0.6-1.4) mg/dl Est Cr Clr Drug Dosing 66.4 ml/min Est GFR ( Amer) 76.7 ml/min Est GFR (Non-Af Amer) 66.2 ml/min BUN/Creatinine Ratio 10.3 (10-20) Glucose 128 H (70-99(Fasting)) mg/dl Lactate (0.4-2.0) mmol/L Calcium 9.4 (8.5-10.1) mg/dl Magnesium 1.4 L (1.7-2.4) mg/dl Total Bilirubin 1.8 H (0.2-1.0) mg/dl AST 56 H (13-39) U/L ALT 37 (7-52) U/L Alkaline Phosphatase 120 H (34-104) U/L Troponin I High Sens 11.3 (0-20) pg/ml Total Protein 8.1 (6.0-8.3) gm/dl Albumin 3.6 (3.4-5.0) gm/dl Globulin 4.5 H (2.5-4.0) gm/dl Albumin/Globulin Ratio 0.8 L (0.9-2) Procalcitonin (0-0.5) ng/ml Urine Color Urine Appearance (Clear) Urine pH (4.5-7.5) Ur Specific [place] (1.000-1.030) Urine Protein (Negative) Urine Glucose (UA) (Negative) Urine Ketones (Negative) Urine Blood (Negative) Urine Nitrite (Negative) Urine Bilirubin (Negative) Urine Urobilinogen (Negative) Ur Leukocyte Esterase (Negative) SARS-CoV-2 (PCR) (Negative) Influenza Type A (PCR) (Neg) Influenza Type B (PCR) (Neg) RSV (RT-PCR) (Neg) 09/03/21 09/03/21 09/03/21 Range/Units 20:21 20:21 20:21 WBC (4.8-10.8) K/uL RBC (4.7-6.1) M/uL Hgb (14.0-18.0) g/dL Hct (42-52) % MCV (80-100) fL MCH (25-34) pg MCHC (32-36) g/dL RDW Std Deviation (36.4-46.3) fL RDW Coeff of Debby (11.5-14.5) % Plt Count (130-400) K/uL MPV (7.4-10.4) fL Immature Gran % (Auto) % Neut % (Auto) % Lymph % (Auto) % Christian % (Auto) % Eos % (Auto) % Baso % (Auto) % Neut # (Auto) (1.4-6.5) K/uL Lymph # (Auto) (1.2-3.4) K/uL Christian # (Auto) (0.11-0.59) K/uL Eos # (Auto) (0-0.5) K/uL Baso # (Auto) (0-0.2) K/uL Immature Gran # (Auto) (0.00-0.02) K/uL PT (9.0-12.0) Seconds INR (0.9-1.1) APTT (21.0-31.0) Seconds PTT Ratio Sodium (136-145) mmol/L Potassium (3.5-5.1) mmol/L Chloride (98-107) mmol/L Carbon Dioxide (21-32) mmol/L Anion Gap (3-11) BUN (6-23) mg/dl Creatinine (0.6-1.4) mg/dl Est Cr Clr Drug Dosing ml/min Est GFR ( Amer) ml/min Est GFR (Non-Af Amer) ml/min BUN/Creatinine Ratio (10-20) Glucose (70-99(Fasting)) mg/dl Lactate 4.0 H* (0.4-2.0) mmol/L Calcium (8.5-10.1) mg/dl Magnesium (1.7-2.4) mg/dl Total Bilirubin (0.2-1.0) mg/dl AST (13-39) U/L ALT (7-52) U/L Alkaline Phosphatase (34-104) U/L Troponin I High Sens (0-20) pg/ml Total Protein (6.0-8.3) gm/dl Albumin (3.4-5.0) gm/dl Globulin (2.5-4.0) gm/dl Albumin/Globulin Ratio (0.9-2) Procalcitonin 0.29 (0-0.5) ng/ml Urine Color Urine Appearance (Clear) Urine pH (4.5-7.5) Ur Specific [place] (1.000-1.030) Urine Protein (Negative) Urine Glucose (UA) (Negative) Urine Ketones (Negative) Urine Blood (Negative) Urine Nitrite (Negative) Urine Bilirubin (Negative) Urine Urobilinogen (Negative) Ur Leukocyte Esterase (Negative) SARS-CoV-2 (PCR) NEGATIVE (Negative) Influenza Type A (PCR) Negative (Neg) Influenza Type B (PCR) Negative (Neg) RSV (RT-PCR) Negative (Neg) 09/03/21 09/03/21 Range/Units 22:18 22:44 WBC (4.8-10.8) K/uL RBC (4.7-6.1) M/uL Hgb (14.0-18.0) g/dL Hct (42-52) % MCV (80-100) fL MCH (25-34) pg MCHC (32-36) g/dL RDW Std Deviation (36.4-46.3) fL RDW Coeff of Debby (11.5-14.5) % Plt Count (130-400) K/uL MPV (7.4-10.4) fL Immature Gran % (Auto) % Neut % (Auto) % Lymph % (Auto) % Christian % (Auto) % Eos % (Auto) % Baso % (Auto) % Neut # (Auto) (1.4-6.5) K/uL Lymph # (Auto) (1.2-3.4) K/uL Christian # (Auto) (0.11-0.59) K/uL Eos # (Auto) (0-0.5) K/uL Baso # (Auto) (0-0.2) K/uL Immature Gran # (Auto) (0.00-0.02) K/uL PT (9.0-12.0) Seconds INR (0.9-1.1) APTT (21.0-31.0) Seconds PTT Ratio Sodium (136-145) mmol/L Potassium (3.5-5.1) mmol/L Chloride (98-107) mmol/L Carbon Dioxide (21-32) mmol/L Anion Gap (3-11) BUN (6-23) mg/dl Creatinine (0.6-1.4) mg/dl Est Cr Clr Drug Dosing ml/min Est GFR ( Amer) ml/min Est GFR (Non-Af Amer) ml/min BUN/Creatinine Ratio (10-20) Glucose (70-99(Fasting)) mg/dl Lactate 2.6 H* (0.4-2.0) mmol/L Calcium (8.5-10.1) mg/dl Magnesium (1.7-2.4) mg/dl Total Bilirubin (0.2-1.0) mg/dl AST (13-39) U/L ALT (7-52) U/L Alkaline Phosphatase (34-104) U/L Troponin I High Sens (0-20) pg/ml Total Protein (6.0-8.3) gm/dl Albumin (3.4-5.0) gm/dl Globulin (2.5-4.0) gm/dl Albumin/Globulin Ratio (0.9-2) Procalcitonin (0-0.5) ng/ml Urine Color Yellow Urine Appearance Clear (Clear) Urine pH 8.0 H (4.5-7.5) Ur Specific [place] > 1.045 H (1.000-1.030) Urine Protein Negative (Negative) Urine Glucose (UA) Negative (Negative) Urine Ketones Negative (Negative) Urine Blood Negative (Negative) Urine Nitrite Negative (Negative) Urine Bilirubin Negative (Negative) Urine Urobilinogen Positive H (Negative) Ur Leukocyte Esterase Negative (Negative) SARS-CoV-2 (PCR) (Negative) Influenza Type A (PCR) (Neg) Influenza Type B (PCR) (Neg) RSV (RT-PCR) (Neg) Administered Medications Acetaminophen (Acetaminophen 500 Mg Tab) 1,000 mg PO Q8H YENNI Stop: 10/03/21 23:44 Last Admin: 09/04/21 01:30 Dose: Not Given Documented by: [id number] Sodium Chloride (Nss 1000ml) 1,000 mls @ 999 mls/hr IV .Q1H1M ONE Stop: 09/04/21 01:57 Last Admin: 09/04/21 01:40 Dose: 999 mls/hr Documented by: [id number] Discontinued Medications Acetaminophen (Acetaminophen 500 Mg Tab) Confirm Administered Dose 1,000 mg .ROUTE .STK-MED ONE Stop: 09/04/21 00:51 Last Admin: 09/04/21 00:52 Dose: 1,000 mg Documented by: [id number] Sodium Chloride (Nss 1000ml) 1,000 mls @ 999 mls/hr IV .Q1H1M ONE Stop: 09/03/21 21:10 Last Infusion: 09/03/21 21:46 Dose: 0 mls/hr Documented by: [id number] Admin: 09/03/21 20:31 Dose: 999 mls/hr Documented by: [id number] Magnesium Sulfate/Dextrose (Magnesium Sulfate / D5w) 1 gm in 100 mls @ 100 mls/hr IV Q1H YENNI Stop: 09/03/21 23:09 Last Admin: 09/03/21 22:16 Dose: 100 mls/hr Documented by: [id number] Infusion: 09/03/21 22:16 Dose: 0 mls/hr Documented by: [id number] Admin: 09/03/21 21:46 Dose: 100 mls/hr Documented by: [id number] Sodium Chloride (Nss 1000ml) 1,000 mls @ 999 mls/hr IV .Q1H1M ONE Stop: 09/03/21 23:23 Last Admin: 09/03/21 22:41 Dose: 999 mls/hr Documented by: [id number] Piperacillin Sod/Tazobactam Sod (Zosyn) 4.5 gm in 120 mls @ 240 mls/hr IV NOW ONE Stop: 09/03/21 22:52 Last Admin: 09/03/21 22:41 Dose: 240 mls/hr Documented by: [id number] Ibuprofen (Ibuprofen 600 Mg Tab) 600 mg PO NOW STA Stop: 09/03/21 20:11 Last Admin: 09/03/21 20:31 Dose: Not Given Documented by: [id number] Ioversol (Optiray 320 100ml) 94 ml IV ONCE ONE Stop: 09/03/21 21:29 Last Admin: 09/03/21 21:28 Dose: 94 ml Documented by: [id number] Ondansetron HCl (Ondansetron Inj 2 Mg/Ml 2 Ml Vial) 4 mg IV NOW STA Stop: 09/03/21 20:11 Last Admin: 09/03/21 20:31 Dose: 4 mg Documented by: [id number] Ondansetron HCl (Ondansetron Inj 2 Mg/Ml 2 Ml Vial) 4 mg IV NOW STA Stop: 09/03/21 22:38 Last Admin: 09/03/21 22:41 Dose: 4 mg Documented by: [id number] Imaging Data Radiologist's Impression: Patient: LAKISHA WERNER (Male) : 57 Status: ER Date: 09/03/21 21:34 Room #: History: fever Slices: [id number] Priors: Tech: Sondra Rangel @ [phone] Exams: CT ABDOMEN & PELVIS With Contrast Contrast: IV Amt: 94 ml optiray 320 Accession Numbers: [id number] Referring Physician: REFERRED SELF Preliminary Findings Only See Final Report For Complete Findings CT ABDOMEN & PELVIS With Contrast: Findings consistent with colitis of the ascending and transverse colon, which may be of infectious or inflammatory etiologies. Terminal ileitis. There is a small amount of simple fluid in the right pericolic gutter. Findings concerning for gastritis with a small amount of fluid around the stomach. Postsurgical changes of the right hepatic lobe there is a biliary stent in place extending to the duodenum. There is a smooth marginated low attenuation lesion in the right hepatic lobe. Findings concerning for cirrhosis. Status post cholecystectomy. No evidence of pancreatitis. No evidence of hydronephrosis or urinary calculi. Comparison made to prior MRI of the abdomen from July 25, 2021. Radiologist: Ana Chand MD Study ready at 22:00 and initial results transmitted at 22:09 Discharge Plan Visit Data Chief Complaint: Fever Stated Complaint: FEVER, SHAKING, VOMITING ED Provider: Liam Wilkes Discharge Problem: Fever, Colitis, Acidosis, lactic Patient Disposition: Being Evaluated by Hospitalist Forms Stand Alone Forms: My [facility] Prescriptions Prescriptions: No Action biotin 10 mg tablet 10 mg PO QAM Qty: 30 RF: 0 ferrous sulfate [iron] 325 mg (65 mg iron) tablet 325 mg PO BID Qty: 60 RF: 0 (DME) pen needle, diabetic 32 gauge x 5/16" needle See Rx Instructions .Route Qty: 100 RF: 11 bupropion HCl 150 mg tablet sustained-release 12 hr 150 mg PO BID Qty: 180 RF: 3 furosemide 20 mg tablet 20 mg PO QAM Qty: 90 RF: 3 levothyroxine 175 mcg tablet 175 mcg PO QAM Qty: 90 RF: 3 metformin 1,000 mg tablet 1,000 mg PO BID Qty: 120 RF: 3 omeprazole 40 mg capsule,delayed release(DR/EC) 40 mg PO BID Qty: 120 RF: 3 simvastatin 20 mg tablet 20 mg PO DAILY Qty: 90 RF: 3 spironolactone 50 mg tablet 50 mg PO QAM Qty: 90 RF: 3 ondansetron 4 mg tablet,disintegrating See Rx Instructions .ROUTE .COMPLEX Qty: 30 RF: 3 (DME) pen needle, diabetic [TRUEplus Pen Needle] 31 gauge x 5/16" needle See Rx Instructions .Route Qty: 100 RF: 5 escitalopram oxalate 10 mg tablet 10 mg PO DAILY Qty: 90 RF: 3 cyanocobalamin (vitamin B-12) 1,000 mcg capsule 1,000 mcg PO QAM RF: 0 cannabidiol (CBD) extract 1 dose PO BID RF: 0 (DME) OneTouch Ultra Blue Test Strip Strip See Rx Instructions .ROUTE .MEDSUPPLY RF: 0 (DME) DexSafeOp Surgical G6 Sensor Device See Rx Instructions .Route RF: 0 cholecalciferol (vitamin D3) [Vitamin D3] 2,000 unit capsule 1,000 unit PO BID RF: 0 calcium carbonate [Calcium 600] 600 mg calcium (1,500 mg) Tablet 600 mg PO BID RF: 0 acetaminophen [Tylenol Extra Strength] 500 mg Tablet 500 mg PO Q6H PRN (Reason: Pain) RF: 0 insulin aspart U-100 [Novolog Flexpen U-100 Insulin] 100 unit/mL (3 mL) insulin pen 0 unit subcut DIRECTED RF: 0 insulin glargine [Lantus Solostar U-100 Insulin] 100 unit/mL (3 mL) insulin pen 15 unit subcut QAM RF: 0 Referrals Referrals: Neelam Cooper CRNP [Primary Care Provider] -
[2021-09-03 20:40] LABS: Basophils # (auto) 0.02 K/uL (0-0.2); Basophils % (auto) 0.2 %; Eosinophils # (auto) 0.04 K/uL (0-0.5); Eosinophils % (auto) 0.3 %; Hematocrit (blood only) 43.4 % (42-52); Immature Granulocytes # (auto) 0.03 K/uL (0.00-0.02); Immature Granulocytes % (auto) 0.2 %; Lymphocytes # (auto) 0.37 K/uL (1.2-3.4); Mean Corpuscular Hemoglobin 34.5 pg (25-34); Mean Corpuscular Hgb Conc 34.6 g/dL (32-36); Mean Corpuscular Volume 99.8 fL (80-100); Mean Platelet Volume 10.6 fL (7.4-10.4); Monocytes % (auto) 3.3 %; Neutrophils # (auto) 11.32 K/uL (1.4-6.5); Platelet Count 230 K/uL (130-400); RDW Coefficient of Variation 14.8 % (11.5-14.5); RDW Standard Deviation 54.1 fL (36.4-46.3); Red Blood Count 4.35 M/uL (4.7-6.1); White Blood Count 12.18 K/uL (4.8-10.8)
[2021-09-03 20:49] LABS: INR 1.1 (0.9-1.1); Partial Thromboplastin Ratio 0.8; Partial Thromboplastin Time 23.3 Seconds (21.0-31.0); Prothrombin Time 11.9 Seconds (9.0-12.0)
[2021-09-03 21:02] LABS: Albumin Globulin Ratio 0.8 (0.9-2); Albumin Level 3.6 gm/dl (3.4-5.0); BUN Creatinine Ratio 10.3 (10-20); Bilirubin,Total 1.8 mg/dl (0.2-1.0); Calcium 9.4 mg/dl (8.5-10.1); Creatinine Clr Calc Pharmacy 66.4 ml/min; Est GFR (African American) 76.7 ml/min; Est GFR (Non-African American) 66.2 ml/min; Globulin 4.5 gm/dl (2.5-4.0); Magnesium 1.4 mg/dl (1.7-2.4); Potassium 4.2 mmol/L (3.5-5.1); Total Protein 8.1 gm/dl (6.0-8.3)
[2021-09-03 21:05] LABS: Troponin I High Sensitivity 11.3 pg/ml (0-20)
[2021-09-03 21:16] LABS: Influenza A virus by PCR Negative (Neg); Influenza B virus by PCR Negative (Neg); RSV by PCR Negative (Neg); SARS CoV2 RNA(COVID-19) InHosp NEGATIVE (Negative)
[2021-09-03] MEDS ORDERED: OPTIRAY 320 100ml IV ONE (21:28)
[2021-09-03] MEDS: MAGNESIUM SULFATE / D5W 1 GM/100 ML BAG IV SCH ×2 (21:46→22:16)
[2021-09-03] MEDS ORDERED: PIPERACILLIN/TAZOBACTAM 4.5 GM/120 ML BAG IV ONE (22:23)
[2021-09-03 22:56] LABS: Appearance Urine Clear (Clear); Bilirubin Urine Negative (Negative); Blood Urine Negative (Negative); Color Urine Yellow; Glucose Urine UA Negative (Negative); Ketones Urine Negative (Negative); Leukocyte Esterase Urine Negative (Negative); Nitrite Urine Negative (Negative); Protein Urine Negative (Negative); Specific Gravity Urine > 1.045 (1.000-1.030); Urobilinogen Urine Positive (Negative)
--- NOTE | 2021-09-04 00:08 | History & Physical Report ---
Date of Service September 03, 2021 Assessment & Plan (1) Fever: Plan: 65yo male with a history of cirrhosis, CKD3, IDDM2, HTN, HLD, esophageal varices s/p banding, hypothyroidism, and portal hypertension presents with a one-day history of fever, rigors, nausea, and vomiting. Fever, sinus tachycardia, nausea, vomiting Patient febrile on admission 38.4, tachycardic to 129 (has since improved to mid-100s), vitals otherwise stable Admission labs notable for mild leukocytosis to 12.2 (neutrophil predominant), lactate 4.0 (subsequent measurement 2.6) Covid, influenza A and B, RSV negative, procal wnl, blood cultures pending, hsTroponin wnl CT a/p findings consistent with colitis of ascending and transverse colon, infectious vs inflammatory; terminal ileitis; gastritis; postsurgical right hepatic lobe changes with biliary stent extending into duodenum; smooth marginated low-attenuated lesion in right hepatic lobe; cirrhosis; s/p cholecystectomy; no evidence of pancreatitis, hydronephrosis, urinary calculi Differential includes gastroenteritis, colitis, biliary stent infection, thyrotoxicosis, others Received NSS 1L bolus x2 in ED, continue NSS @ 100mL/hr (x1 bag ordered) MRSA nares and stool PCR ordered Zosyn administered in ED; will continue this and add vancomycin APAP 1000mg PO q8h scheduled Zofran prn nausea Continue home omeprazole, will add famotidine 20mg IV bid AM labs: CBC, CMP, lactic acid, TSH w/ reflex fT4 Transaminitis, hyperbilirubinemia in the setting of cirrhosis On admission, Tbili 1.8, AST 56, AlkP 120; ALT wnl; patient has a history of both hyperbilirubinemia and transaminitis, likely secondary to known cirrhosis Patient follows with GI at [facility] (on liver transplant list) - pt requests records to be sent to prosthetics lab technician Po-Zaki Cerna ([place]) (fax [phone]) GI consulted, recommendations appreciated Trend daily CMP Hyponatremia Sodium on admission 133, possibly secondary to poor PO intake and vomiting Anticipate improvement after NSS 1L bolus x2; continue NSS @ 100mL/hr (x1 bag ordered) Trend daily BMP Hypomagnesemia Magnesium 1.4 on admission Received mag sulfate 1g IV x1 in ED Repeat mag level in AM IDDM2 HbA1c 6.0% (07/05/21) Patient's home regimen held on admission Continue BSG checks, sliding-scale insulin, hypoglycemic protocol Did not add dextrose to fluids; consider if patient will remain NPO throughout the morning CKD3 Creatinine on admission 1.16 (baseline 1.0-1.2) NSS @ 100mL/hr (x1 bag ordered) Trend daily BMP GERD: continue home omeprazole HLD: continue home simvastatin HTN: BP well-controlled on admission, continue home regimen Hypothyroidism: continue home levothyroxine 175mcg PO qAM MDD: continue home bupropion FEN: NPO pending GI evaluation, NSS @ 100mL/hr (x1 bag ordered) without dextrose Code status: full code DVT ppx: SCDs Held home meds: metformin, aspart, glargine, CBD Consults: gastroenterology PT/OT: ordered Dispo: med/telemetry (2) Cirrhosis: (3) CKD (chronic kidney disease), stage III: (4) Controlled type 2 diabetes mellitus, with long-term current use of insulin: (5) GERD (gastroesophageal reflux disease): (6) Hypertension: (7) Hyperlipidemia: (8) Hypothyroidism: (9) Portal hypertension: History of Present Illness Primary Care Provider: HATTIE Fleming 65yo male with a history of cirrhosis, CKD3, IDDM2, HTN, HLD, esophageal varices s/p banding, hypothyroidism, and portal hypertension presents with a one-day history of fever. Patient also reports rigors earlier today as well as nausea, vomiting, and chest pain. Symptoms stated around 5:30pm earlier today (09/03) with patient feeling feverish. He then developed rigors, which he has had during prior episodes of sepsis; d/t concerns for sepsis, patient presented to the ED. Tmax at home was 100.9. Patient reports associated nausea and vomiting; he was able to keep breakfast down but wasn't able to keep anything else down for the rest of the day. Vomit was nonbloody and nonbilious. Patient also notes some mild epigastric pain which he attributes to tensing his abdominal muscles during rigors. Epigastric pain is not worsened with exertion. Patient took APAP prior to arrival. In the ED, patient received NSS 1L bolus (x2), zofran, and zosyn. EKG was notable for sinus tachycardia and poor R wave progression without ectopy. Patient reports he feels significantly better than when he came in. Patient denies headache, vision changes, SOB, cough, sore throat, hematochezia, melena, diarrhea, numbness, tingling, or sick contacts. Allergies Allergy/AdvReac Type Severity Reaction Status Date / Time exenatide [From [place]] AdvReac Intermediate Diarrhea Verified 09/03/21 20:48 Home Medications Medication Instructions Recorded Confirmed Type biotin 10 mg tablet 10 mg PO QAM #30 tab 08/11/18 09/03/21 Rx ferrous sulfate 325 mg (65 mg 325 mg PO BID #60 tab 08/11/18 09/03/21 Rx iron) tablet (iron) cyanocobalamin (vitamin B-12) 1,000 mcg PO QAM 11/25/18 09/03/21 History 1,000 mcg capsule calcium carbonate 600 mg calcium 600 mg PO BID 12/25/18 09/03/21 History (1,500 mg) tablet (Calcium) cholecalciferol (vitamin D3) 50 1,000 unit PO BID 12/25/18 09/03/21 History mcg (2,000 unit) capsule (Vitamin D3) cannabidiol (CBD) extract 1 dose PO BID 01/09/19 09/03/21 History acetaminophen 500 mg tablet 500 mg PO Q6H PRN 07/03/20 09/03/21 History (Tylenol Extra Strength) blood sugar diagnostic (OneTouch ea 02/10/21 04/07/21 History Ultra Blue Test Strip) blood-glucose sensor (Dexcom G6 02/10/21 04/07/21 History Sensor) bupropion HCl 150 mg tablet,12 hr 150 mg PO BID #180 tab 06/27/21 09/03/21 Rx sustained-release furosemide 20 mg tablet 20 mg PO QAM #90 tab 06/27/21 09/03/21 Rx levothyroxine 175 mcg tablet 175 mcg PO QAM #90 tab 06/27/21 09/03/21 Rx metformin 1,000 mg tablet 1,000 mg PO BID #120 tab 06/27/21 09/03/21 Rx omeprazole 40 mg capsule,delayed 40 mg PO BID #120 cap 06/27/21 09/03/21 Rx release ondansetron 4 mg disintegrating See Rx Instructions .ROUTE 06/27/21 09/03/21 Rx tablet .COMPLEX #30 tab pen needle, diabetic 32 gauge x #100 ea 06/27/21 Rx 5/16" simvastatin 20 mg tablet 20 mg PO DAILY #90 tab 06/27/21 09/03/21 Rx spironolactone 50 mg tablet 50 mg PO QAM #90 tab 06/27/21 09/03/21 Rx pen needle, diabetic 31 gauge x #100 ea 07/19/21 Rx 5/16" (TRUEplus Pen Needle) escitalopram oxalate 10 mg tablet 10 mg PO DAILY #90 tab 08/08/21 09/03/21 Rx insulin aspart U-100 100 unit/mL 0 unit SUBCUT DIRECTED 09/03/21 09/03/21 History (3 mL) subcutaneous pen (Novolog Flexpen U-100 Insulin aspart) insulin glargine 100 unit/mL (3 15 unit SUBCUT QAM 09/03/21 09/03/21 History mL) subcutaneous pen (Lantus Solostar U-100 Insulin) Past Med/Surg History Medical History Anemia Cirrhosis of liver Depression DM type 2 (diabetes mellitus, type 2) IDDM Esophageal varices hx banding GERD (gastroesophageal reflux disease) GI bleed hx Gram-negative bacteremia History of ascites Hyperlipidemia Hypertension hx Hypothyroidism Peripheral neuropathy Post traumatic stress disorder Sepsis Surgical History History of abdominal paracentesis multiple (last 2 years ago) History of cholecystectomy History of colonoscopy History of ERCP History of esophagogastroduodenoscopy (EGD) History of herniorrhaphy WITH MESH-2018 History of surgery of liver Hepatic lobectomy (benign tumor) History of tooth extraction Hx of hand surgery RT HAND/ARM SURGERY (METAL PLATE D/T FX) Hx of vasectomy S/P debridement ABDOMINAL WOUND 2018 Family History Mother Diabetes Grandmother No problems noted. Grandmother (Maternal) Diabetes Family/Other Heart disease Cancer Hypertension Other No family history of adverse response to anesthesia Denies family history of Ovarian cancer Prostate cancer Myocardial infarction Breast cancer Colorectal cancer Social History Smoking Status: Never smoker Cigarettes Per Day: QUIT 35 YEARs ago; Second Hand Exposure: No; Hx Alcohol Use: No Hx Substance Use: No Preferred Language: [place] Communication Ability: Effective Sock Boarder Required: No Beliefs That Will Affect Care: None marital status: Current Living Situation: Spouse current occupational status: retired How many Children do You have: 3 Feels Safe at Home: Yes Childhood Exposure to Second-Hand Smoke: No caffeine: Yes Dental Care, Regularly: Yes Physical Activity Frequency: 3-4 Times per Week Seatbelt Use: always Sunscreen Use: No Assistive Devices: None Physical Exam Physical Exam: Constitutional: well-appearing, no acute distress HEENT: MMM, no conjunctival injection, no scleral icterus CV: regular rhythm, no murmur appreciated, extremities well-perfused, no LE edema Resp: CTABL, no wheezes/rales/rhonchi appreciated, no increased work of breathing GI: soft, nondistended, mild RUQ and RLQ tenderness to palpation, no LUQ/LLQ tenderness, BS normoactive MSK: no gross deformities appreciated Skin: warm, dry, no rash appreciated, no appreciable jaundice Neuro: alert, oriented, no focal neurologic deficit appreciated Results & Data Results & Data ([facility]) Vital Signs (Past 12 Hours) Vital Signs Temp Pulse Pulse Resp BP BP Pulse Ox 09/03/21 23:00 104 H 21 117/75 94 09/03/21 22:45 104 H 16 96 09/03/21 22:44 101 H 16 117/75 95 09/03/21 21:19 104 H 16 123/80 96 09/03/21 20:32 105 H 16 123/79 95 09/03/21 20:19 115 H 16 95 09/03/21 20:18 16 96 09/03/21 20:17 116 H 18 123/79 96 09/03/21 19:54 38.4 C H 129 H 18 118/74 96 Resident Activity Tracking Resident Involvement: Resident Care 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 Coverage Note Care Provided: Adult Hospital Medicine (1) CKD (chronic kidney disease), stage III Chronic kidney disease stage 3 subtype: stage 3a (GFR 45-59) Qualified Code(s): N18.31 - Chronic kidney disease, stage 3a (2) Hypothyroidism Hypothyroidism type: unspecified Qualified Code(s): E03.9 - Hypothyroidism, unspecified (3) Controlled type 2 diabetes mellitus, with long-term current use of insulin Diabetes mellitus complication status: without complication Qualified Code(s): E11.9 - Type 2 diabetes mellitus without complications; Z79.4 - detention (current) use of insulin (4) GERD (gastroesophageal reflux disease) Esophagitis presence: without esophagitis Qualified Code(s): K21.9 - Gastro- esophageal reflux disease without esophagitis (5) Hypertension Hypertension type: essential hypertension Qualified Code(s): I10 - Essential (primary) hypertension
[2021-09-04] MEDS ORDERED: ACETAMINOPHEN 500 MG TAB ONE (00:50)
[2021-09-04] MEDS ORDERED: SODIUM CHLORIDE 0.9% 1000ML 1,000 ML IV ONE (00:57)
[2021-09-04] MEDS: ACETAMINOPHEN 500 MG TAB PO SCH ×5 (01:30→17:16)
[2021-09-04] MEDS ORDERED: CARBOHYDRATES FOR HYPOGLYCEMIA PO PRN (01:45)
[2021-09-04] MEDS ORDERED: VANCOMYCIN CONSULT ACTIVE PRN (01:45)
[2021-09-04] MEDS ORDERED: GLUCOSE 10 TABS/TUBE PO PRN (01:45)
[2021-09-04] MEDS ORDERED: ONDANSETRON INJ 2 MG/ML 2 ML VIAL IV PRN (01:45)
[2021-09-04] MEDS ORDERED: GLUCAGON FOR INJ 1 MG VIAL SQ PRN (01:45)
[2021-09-04] MEDS ORDERED: GLUCOSE 40% GEL 15 GM TUBE PO PRN (01:45)
[2021-09-04] MEDS ORDERED: SODIUM CHLORIDE 0.9% 1000ML 1,000 ML IV SCH (01:45)
[2021-09-04] MEDS ORDERED: DEXTROSE 50% 50 ML SYRINGE IV PRN (01:45)
[2021-09-04] MEDS ORDERED: INSULIN ASPART PER UNIT SC SCH (02:00)
[2021-09-04] MEDS ORDERED: VANCOMYCIN HCL 1,750 MG in SODIUM CHLORIDE 0.9% 500 ML IV ONE (02:15)
[2021-09-04] MEDS: MELATONIN 3 MG TAB PO PRN ×2 (02:26→22:03)
[2021-09-04] MEDS: diphenhydrAMINE Capsule 25 MG CAP PO PRN ×2 (02:26→22:03)
[2021-09-04] MEDS: PANTOprazole 40 MG in SYRINGE 0 ML IV SCH ×3 (03:29→20:30)
[2021-09-04] MEDS: FAMOTIDINE 20 MG in SYRINGE 3 ML IV SCH ×3 (03:29→22:04)
[2021-09-04] MEDS ORDERED: PIPERACILLIN/TAZOBACTAM 3.375 GM in DEXTROSE 5% 100 ML IV SCH (04:00)
[2021-09-04] MEDS: LEVOTHYROXINE SODIUM 175 MCG TABLET PO SCH (06:18)
--- NOTE | 2021-09-04 07:06 | Hospitalist Progress Note ---
Date of Service September 04, 2021 Assessment & Plan (1) Fever: Plan: 65yo male with a history of cirrhosis, CKD3, IDDM2, HTN, HLD, esophageal varices s/p banding, hypothyroidism, and portal hypertension presents with a one-day history of fever, rigors, nausea, and vomiting. Sepsis with Bacteremia Patient febrile on admission 38.4, tachycardic to 129 (has since improved to mid-100s), vitals otherwise stable Received NSS 1L bolus x3 in ED CT a/p:cirrhosis and sign of Portal HTN -blood PCR = gram negative bacili -started zosyn Vanc in ED, zosyn continued trend cbc Transaminitis, hyperbilirubinemia in the setting of cirrhosis On admission, Tbili 1.8, AST 56, AlkP 120; ALT wnl; patient has a history of both hyperbilirubinemia and transaminitis, likely secondary to known cirrhosis Patient follows with GI at [facility] (on liver transplant list) - pt requests records to be sent to architect [facility] ([place]) (fax [phone]) GI consulted, Trend daily CMP Hyponatremia -resolved Sodium on admission 133, possibly secondary to poor PO intake and vomiting --> recheck 137 received 3L NSS Trend daily BMP Hypomagnesemia Magnesium 1.4 on admission Received mag sulfate 1g IV x1 in ED Recheck Mg 2 GERD Continue home omeprazole, will add famotidine 20mg IV bid IDDM2 HbA1c 6.0% (07/05/21) Patient's home regimen held on admission Continue BSG checks, sliding-scale insulin, hypoglycemic protocol CKD3 Creatinine on admission 1.16 (baseline 1.0-1.2) received 3L NSS Trend daily BMP GERD: continue home omeprazole HLD: continue home simvastatin HTN: BP well-controlled on admission, continue home regimen Hypothyroidism: continue home levothyroxine 175mcg PO qAM MDD: continue home bupropion FEN: carb consistent, NPO midnight Code status: full code DVT ppx: SCDs Held home meds: metformin, aspart, glargine, CBD Consults: gastroenterology PT/OT: ordered Dispo: med/telemetry (2) Cirrhosis: (3) CKD (chronic kidney disease), stage III: (4) Controlled type 2 diabetes mellitus, with long-term current use of insulin: (5) GERD (gastroesophageal reflux disease): (6) Hypertension: (7) Hyperlipidemia: (8) Hypothyroidism: (9) Portal hypertension: Admission and Anticipated Discharge Date Admission Date: September 04, 2021 Supervising Physician Co-Signing Physician Notes Resident Physician Supervision Note: I independently interviewed and examined the patient and verified the trivedi history and physical, reviewed labs and image studies and agree with resident Dr. Joya findings and care plan. Subjective Patient seen at bedside calm cooperative shivering in bed, he states his symptoms came on 1 day ago. He complains of some nausea but is able to tolerate oral medication, denies abd pain SOB headache changes in vision, is able to touch his chin to chest without neck pain, describes neck stiffness and musculoskeletal chest pain secondary to shivers. Patient understands he is being treated with antibiotics, no acute concerns at this time. Review of Systems Review of Systems: Positive chills, nausea Negative fever Negative headache dizziness Negative chest pain palpitations SOB Negative vomitting diarrhea constipation Negative numbness tingling rash swelling Physical Exam Constitutional: well developed, well nourished, + ill appearing and cooperative Eyes: PERRL, conjunctivae normal, anicteric sclerae ENMT: external ear and nose normal, oropharynx normal Neck: trachea midline, no thyromegaly Respiratory: normal respiratory effort, lungs clear to auscultation Cardiovascular: RRR, no murmur, no edema Chest (Breasts): Chest: normal inspection of chest Gastrointestinal (Abdomen): Inspection/Auscultation: abdomen normal to inspection Percussion/Palpation: abdomen soft; abdomen nontender Skin: no rashes, warm and dry scarring from hepatic resection noted on abd Neurologic: CN's II-XI intact bilaterally Psychiatric: A+Ox3, euthymic affect Results & Data Results & Data ([facility]) Vital Signs (Past 12 Hours) Vital Signs Temp Pulse Pulse Resp BP BP Pulse Ox 09/04/21 02:31 36.9 C 87 14 95/59 L 97 09/03/21 23:00 104 H 21 117/75 94 09/03/21 22:45 104 H 16 96 09/03/21 22:44 101 H 16 117/75 95 09/03/21 21:19 104 H 16 123/80 96 09/03/21 20:32 105 H 16 123/79 95 09/03/21 20:19 115 H 16 95 09/03/21 20:18 16 96 09/03/21 20:17 116 H 18 123/79 96 09/03/21 19:54 38.4 C H 129 H 18 118/74 96 Diagnostic Findings Laboratory Results WBC 12.91 K/uL (4.8-10.8) H 09/04/21 07:03 RBC 3.66 M/uL (4.7-6.1) L 09/04/21 07:03 Hgb 12.6 g/dL (14.0-18.0) L 09/04/21 07:03 Hct 36.9 % (42-52) L 09/04/21 07:03 MCV 100.8 fL (80-100) H 09/04/21 07:03 MCH 34.4 pg (25-34) H 09/04/21 07:03 MCHC 34.1 g/dL (32-36) 09/04/21 07:03 RDW Std Deviation 55.3 fL (36.4-46.3) H 09/04/21 07:03 RDW Coeff of Debby 15.1 % (11.5-14.5) H 09/04/21 07:03 Plt Count 155 K/uL (130-400) 09/04/21 07:03 MPV 10.1 fL (7.4-10.4) 09/04/21 07:03 Immature Gran % (Auto) 0.2 % 09/04/21 07:03 Neut % (Auto) 87.1 % 09/04/21 07:03 Lymph % (Auto) 5.4 % 09/04/21 07:03 Martin % (Auto) 6.3 % 09/04/21 07:03 Eos % (Auto) 0.8 % 09/04/21 07:03 Baso % (Auto) 0.2 % 09/04/21 07:03 Neut # (Auto) 11.24 K/uL (1.4-6.5) H 09/04/21 07:03 Lymph # (Auto) 0.70 K/uL (1.2-3.4) L 09/04/21 07:03 Martin # (Auto) 0.81 K/uL (0.11-0.59) H 09/04/21 07:03 Eos # (Auto) 0.10 K/uL (0-0.5) 09/04/21 07:03 Baso # (Auto) 0.03 K/uL (0-0.2) 09/04/21 07:03 Immature Gran # (Auto) 0.03 K/uL (0.00-0.02) H 09/04/21 07:03 PT 11.9 Seconds (9.0-12.0) 09/03/21 20:21 INR 1.1 (0.9-1.1) 09/03/21 20:21 APTT 23.3 Seconds (21.0-31.0) 09/03/21 20:21 PTT Ratio 0.8 09/03/21 20:21 Sodium 137 mmol/L (136-145) 09/04/21 07:03 Potassium 4.0 mmol/L (3.5-5.1) 09/04/21 07:03 Chloride 105 mmol/L (98-107) 09/04/21 07:03 Carbon Dioxide 26 mmol/L (21-32) 09/04/21 07:03 Anion Gap 6 (3-11) 09/04/21 07:03 BUN 13 mg/dl (6-23) 09/04/21 07:03 Creatinine 1.19 mg/dl (0.6-1.4) 09/04/21 07:03 Est Cr Clr Drug Dosing 64.8 ml/min 09/04/21 07:03 Est GFR ( Amer) 74.4 ml/min 09/04/21 07:03 Est GFR (Non-Af Amer) 64.2 ml/min 09/04/21 07:03 BUN/Creatinine Ratio 10.9 (10-20) 09/04/21 07:03 Glucose 105 mg/dl (70-99(Fasting)) H 09/04/21 07:03 POC Glucose 93 mg/dl (70-99) 09/04/21 12:23 Lactate 2.0 mmol/L (0.4-2.0) 09/04/21 07:03 Calcium 8.0 mg/dl (8.5-10.1) L 09/04/21 07:03 Phosphorus 3.0 mg/dl (2.5-4.9) 09/04/21 07:03 Magnesium 2.0 mg/dl (1.7-2.4) 09/04/21 07:03 Total Bilirubin 4.5 mg/dl (0.2-1.0) H D 09/04/21 07:03 AST 93 U/L (13-39) H 09/04/21 07:03 ALT 55 U/L (7-52) H 09/04/21 07:03 Alkaline Phosphatase 97 U/L (34-104) 09/04/21 07:03 Troponin I High Sens 11.3 pg/ml (0-20) 09/03/21 20:21 Total Protein 6.3 gm/dl (6.0-8.3) D 09/04/21 07:03 Albumin 2.9 gm/dl (3.4-5.0) L 09/04/21 07:03 Globulin 3.4 gm/dl (2.5-4.0) 09/04/21 07:03 Albumin/Globulin Ratio 0.9 (0.9-2) 09/04/21 07:03 Procalcitonin 0.29 ng/ml (0-0.5) 09/03/21 20:21 TSH 0.371 uIu/ml (0.300-4.500) 09/04/21 07:03 Urine Color Yellow 09/03/21 22:44 Urine Appearance Clear (Clear) 09/03/21 22:44 Urine pH 8.0 (4.5-7.5) H 09/03/21 22:44 Ur Specific [place] > 1.045 (1.000-1.030) H 09/03/21 22:44 Urine Protein Negative (Negative) 09/03/21 22:44 Urine Glucose (UA) Negative (Negative) 09/03/21 22:44 Urine Ketones Negative (Negative) 09/03/21 22:44 Urine Blood Negative (Negative) 09/03/21 22:44 Urine Nitrite Negative (Negative) 09/03/21 22:44 Urine Bilirubin Negative (Negative) 09/03/21 22:44 Urine Urobilinogen Positive (Negative) H 09/03/21 22:44 Ur Leukocyte Esterase Negative (Negative) 09/03/21 22:44 Nasal Screen MRSA (PCR) Negative (Negative) 09/04/21 02:45 SARS-CoV-2 (PCR) NEGATIVE (Negative) 09/03/21 20:21 Enterobacterales (PCR) DETECTED (NotDetected) A 09/03/21 21:26 E. coli (PCR) DETECTED (NotDetected) A 09/03/21 21:26 Influenza Type A (PCR) Negative (Neg) 09/03/21 20:21 Influenza Type B (PCR) Negative (Neg) 09/03/21 20:21 RSV (RT-PCR) Negative (Neg) 09/03/21 20:21 mcr-1 Colistin Res Gene PCR Not Detected (NotDetected) 09/03/21 21:26 blaIMP Car res Gene PCR Not Detected (NotDetected) 09/03/21 21:26 KPC-Carbap Res Gene PCR Not Detected (NotDetected) 09/03/21 21:26 blaNDM Car Res Gene PCR Not Detected (NotDetected) 09/03/21 21:26 OXA-48 Carbapenem Resis Gene (PCR) Not Detected (NotDetected) 09/03/21 21:26 blaVIM Car Res Gene PCR Not Detected (NotDetected) 09/03/21 21:26 CTX-M Gene Resistance (PCR) Not Detected (NotDetected) 09/03/21 21:26 Bld Cult ID Panel PCR See PCR Comment (NotDetected) 09/03/21 21:26 Impressions Abdomen/Pelvis CT 09/03/21 20:[address] WITH IV CONTRAST CT DOSE: 491.27 mGy.cm HISTORY: Acute fever. History of cirrhosis with right hepatic lobe resection. fever TECHNIQUE: Multiaxial CT images of the abdomen and pelvis were performed following the IV administration of 94 cc of Optiray, A dose lowering technique was utilized adhering to the principles of ALARA. COMPARISON STUDY: MRI of the abdomen 07/25/2021, CT abdomen 07/03/2020 FINDINGS: Gynecomastia. Calcified granuloma of the basal right lower lobe. Thin- walled cyst of the basal left lower lobe. Mild scarring versus atelectasis within the right middle lobe. There is no pneumatosis or pneumoperitoneum. Calcified granulomata of the spleen. Mild to moderate generalized pancreatic atrophy. Unremarkable adrenal glands. Cholecystectomy. Cirrhotic liver disease with prior right hepatic lobe resection. Stable appearing 2.6 cm hypodense focus of the right hepatic lobe is likely benign. There is mild intrahepatic biliary ductal prominence. A debris-filled common bile duct stent. Patency of the portal vein. Unremarkable kidneys. There is no hydronephrosis. Unremarkable prostate. Mild nonspecific urinary bladder wall thickening. Atherosclerosis of the aorta without aneurysm. Surgical clips of the bilateral inguinal canals. Unchanged scattered adenopathy of the lower chest and abdomen includes a stable 1.5 x 2.0 cm periaortic lymph node on image 169. Unchanged 2.8 x 1.3 cm gastrohepatic lymph node. Abdominal collateral vessels with diffuse mesenteric edema and small volume of abdominal pelvic ascites. No bowel obstruction. Moderate colonic fecal retention. There is moderate wall thickening of the colon which is most pronounced in the ascending and transverse segments. Multifocal small bowel wall thickening is noted with scattered air-fluid levels. Small bowel anastomosis of the left midabdomen. Postoperative changes of the anterior abdominal wall. Degenerative changes of the spine, pelvis and hips. IMPRESSION: 1. Cirrhotic liver disease with prior right hepatic lobe resection. 2. Stigmata of portal venous hypertension with small volume of abdominal pelvic ascites. 3. Mild intrahepatic biliary ductal prominence with common bile duct stent in place. 4. Multifocal large and small bowel wall thickening is likely secondary to the portal venous hypertension. A nonspecific infectious or inflammatory enterocolitis could appear similarly. 5. No bowel obstruction. ACT 112: Negative or not required by law. The above report was generated using voice recognition software. It may contain grammatical, syntax or spelling errors. Electronically signed by: Sujit Velarde M.D. 09/04/2021 8:46 AM Chest X-Ray 09/03/21 20:10 XR chest 1V portable CLINICAL HISTORY: SEPSIS COMPARISON STUDY: Chest radiograph July 03, 2020. FINDINGS: Lung volumes are normal. Calcified granuloma within the right lower lung is noted as well as calcified right hilar lymph nodes. There is no pneumothorax or pleural effusion. Cardiac size is normal. Mediastinal contours are normal. There is no evidence for pulmonary edema. IMPRESSION: No acute cardiopulmonary findings. No change in appearance of the chest. ACT 112: Negative or not required by law. Electronically signed by: Jalil Abraham M.D. 09/04/2021 7:50 AM Medications Administered Current Inpatient Medications Acetaminophen (Acetaminophen 500 Mg Tab) 1,000 mg PO Q8H YENNI Stop: 10/03/21 23:44 Last Admin: 09/04/21 09:12 Dose: 1,000 mg Documented by: Bupropion HCl (Bupropion Sr 150 Mg Tabcr) 150 mg PO BID [facility] Stop: 10/04/21 08:59 Last Admin: 09/04/21 09:12 Dose: 150 mg Documented by: Dextrose (Dextrose 50% 50 Ml Syringe) 25 - 50 ml IV UD PRN; Protocol PRN Reason: Hypoglycemia Protocol Stop: 10/04/21 01:44 Diphenhydramine HCl (Diphenhydramine Capsule 25 Mg Cap) 25 mg PO HS PRN PRN Reason: Insomnia Stop: 10/04/21 01:44 Last Admin: 09/04/21 02:26 Dose: 25 mg Documented by: Escitalopram Oxalate (Escitalopram Oxalate 10 Mg Tab) 10 mg PO DAILY YENNI Stop: 10/04/21 08:59 Last Admin: 09/04/21 09:12 Dose: 10 mg Documented by: Ferrous Sulfate (Ferrous Sulfate 325 Mg Tab) 325 mg PO Q2D@0900 [facility] Stop: 10/05/21 08:59 Furosemide (Furosemide 20 Mg Tab) 20 mg PO QAM YENNI Stop: 10/04/21 08:59 Last Admin: 09/04/21 09:16 Dose: Not Given Documented by: Glucagon (Glucagon For Inj 1 Mg Vial) 1 mg SQ UD PRN; Protocol PRN Reason: Hypoglycemia Protocol Stop: 10/04/21 01:44 Glucose (Glucose 10 Tabs/Tube) 4 - 8 tabs PO UD PRN; Protocol PRN Reason: Hypoglycemia Protocol Stop: 10/04/21 01:44 Glucose (Glucose 40% Gel 15 Gm Tube) 15 - 30 gm PO UD PRN; Protocol PRN Reason: Hypoglycemia Protocol Stop: 10/04/21 01:44 Famotidine 20 mg/ Syringe 5 mls @ 2.5 mls/min IV BID YENNI Stop: 10/04/21 01:49 Last Admin: 09/04/21 09:23 Dose: 2.5 mls/min Documented by: Pantoprazole Sodium 40 mg/ (Syringe) 10 mls @ 5 mls/min IV BID YENNI Stop: 10/04/21 01:49 Last Admin: 09/04/21 09:12 Dose: 5 mls/min Documented by: Piperacillin Sod/Tazobactam (Sod 3.375 gm/ Dextrose) 115 mls @ 28.75 mls/hr IV Q8H YENNI; Protocol Stop: 09/18/21 12:14 Last Admin: 09/04/21 13:21 Dose: 28.8 mls/hr Documented by: Insulin Aspart (Insulin Aspart Per Unit) 0 units SC ACHS [facility] Stop: 10/04/21 07:29 Last Admin: 09/04/21 12:27 Dose: Not Given Documented by: Levothyroxine Sodium (Levothyroxine Sodium 175 Mcg Tablet) 175 mcg PO DAILYBB [facility] Stop: 10/04/21 06:29 Last Admin: 09/04/21 06:18 Dose: 175 mcg Documented by: Melatonin (Melatonin 3 Mg Tab) 3 mg PO HS PRN PRN Reason: Sleep Stop: 10/04/21 01:44 Last Admin: 09/04/21 02:26 Dose: 3 mg Documented by: Miscellaneous (Carbohydrates For Hypoglycemia ) 15 - 30 gm PO UD PRN PRN Reason: Hypoglycemia Protocol Stop: 10/04/21 01:44 Ondansetron HCl (Ondansetron Inj 2 Mg/Ml 2 Ml Vial) 4 mg IV Q4H PRN PRN Reason: nausea Stop: 10/04/21 01:44 Last Admin: 09/04/21 09:13 Dose: 4 mg Documented by: Simvastatin (Simvastatin 20 Mg Tab) 20 mg PO DAILY [facility] Stop: 10/04/21 08:59 Last Admin: 09/04/21 09:12 Dose: 20 mg Documented by: Spironolactone (Spironolactone 25 Mg Tab) 50 mg PO QAM [facility] Stop: 10/04/21 08:59 Last Admin: 09/04/21 09:12 Dose: 50 mg Documented by: Resident Activity Tracking Resident Involvement: Resident Care Provided Care Provided: Adult Hospital Medicine (1) CKD (chronic kidney disease), stage III Chronic kidney disease stage 3 subtype: stage 3a (GFR 45-59) Qualified Code(s): N18.31 - Chronic kidney disease, stage 3a (2) Hypothyroidism Hypothyroidism type: unspecified Qualified Code(s): E03.9 - Hypothyroidism, unspecified (3) Controlled type 2 diabetes mellitus, with long-term current use of insulin Diabetes mellitus complication status: without complication Qualified Code(s): E11.9 - Type 2 diabetes mellitus without complications; Z79.4 - retirement (current) use of insulin (4) GERD (gastroesophageal reflux disease) Esophagitis presence: without esophagitis Qualified Code(s): K21.9 - Gastro-esophageal reflux disease without esophagitis (5) Hypertension Hypertension type: essential hypertension Qualified Code(s): I10 - Essential (primary) hypertension
[2021-09-04 07:32] LABS: Basophils # (auto) 0.03 K/uL (0-0.2); Basophils % (auto) 0.2 %; Eosinophils % (auto) 0.8 %; Hematocrit (blood only) 36.9 % (42-52); Hemoglobin 12.6 g/dL (14.0-18.0); Immature Granulocytes # (auto) 0.03 K/uL (0.00-0.02); Immature Granulocytes % (auto) 0.2 %; Lymphocytes % (auto) 5.4 %; Mean Corpuscular Hemoglobin 34.4 pg (25-34); Mean Corpuscular Hgb Conc 34.1 g/dL (32-36); Mean Corpuscular Volume 100.8 fL (80-100); Mean Platelet Volume 10.1 fL (7.4-10.4); Monocytes # (auto) 0.81 K/uL (0.11-0.59); Monocytes % (auto) 6.3 %; Neutrophils # (auto) 11.24 K/uL (1.4-6.5); Neutrophils % (auto) 87.1 %; Platelet Count 155 K/uL (130-400); RDW Coefficient of Variation 15.1 % (11.5-14.5); RDW Standard Deviation 55.3 fL (36.4-46.3); Red Blood Count 3.66 M/uL (4.7-6.1); White Blood Count 12.91 K/uL (4.8-10.8)
--- NOTE | 2021-09-04 07:52 | XRay Report ---
XR chest 1V portable CLINICAL HISTORY: SEPSIS COMPARISON STUDY: Chest radiograph July 03, 2020. FINDINGS: Lung volumes are normal. Calcified granuloma within the right lower lung is noted as well a s calcified right hilar lymph nodes. There is no pneumothorax or pleural effusion. Cardiac size is no rmal. Mediastinal contours are normal. There is no evidence for pulmonary edema. IMPRESSION: No acute cardiopulmonary findings. No change in appearance of the chest. ACT 112: Negative or not required by law. Electronically signed by: Jalil Abraham M.D. 09/04/2021 7:50 AM
[2021-09-04 07:59] LABS: Albumin Globulin Ratio 0.9 (0.9-2); Albumin Level 2.9 gm/dl (3.4-5.0); BUN Creatinine Ratio 10.9 (10-20); Bilirubin,Total 4.5 mg/dl (0.2-1.0); Creatinine Clr Calc Pharmacy 64.8 ml/min; Est GFR (African American) 74.4 ml/min; Est GFR (Non-African American) 64.2 ml/min; Globulin 3.4 gm/dl (2.5-4.0); Total Protein 6.3 gm/dl (6.0-8.3)
--- NOTE | 2021-09-04 08:26 | Electrocardiogram Report ---
Test Reason : Blood Pressure : / mmHG Vent. Rate : 119 BPM Atrial Rate : 119 BPM P-R Int : 148 ms QRS Dur : 072 ms QT Int : 312 ms P-R-T Axes : 048 -72 053 degrees QTc Int : 438 ms Sinus tachycardia Left axis deviation Poor R wave progression, consider anterior AK vs. lead placement vs. LVH Abnormal ECG When compared with ECG of 03-JUL-2020 13:28, Borderline Criteria for Inferior infarct no longer present Otherwise no significant change Confirmed by Timi Roberson ([id number]) on 09/04/2021 8:26:23 AM Referred By: REFERRED SELF Confirmed By:Timi Roberson
--- NOTE | 2021-09-04 08:48 | CT Scan Report ---
ABDOMEN AND PELVIS CT WITH IV CONTRAST CT DOSE: 491.27 mGy.cm HISTORY: Acute fever. History of cirrhosis with right hepatic lobe resection. fever TECHNIQUE: Multiaxial CT images of the abdomen and pelvis were performed following the IV administrat ion of 94 cc of Optiray, A dose lowering technique was utilized adhering to the principles of ALARA. COMPARISON STUDY: MRI of the abdomen 07/25/2021, CT abdomen 07/03/2020 FINDINGS: Gynecomastia. Calcified granuloma of the basal right lower lobe. Thin-walled cyst of the ba melissa left lower lobe. Mild scarring versus atelectasis within the right middle lobe. There is no pneum atosis or pneumoperitoneum. Calcified granulomata of the spleen. Mild to moderate generalized pancreatic atrophy. Unremarkable ad renal glands. Cholecystectomy. Cirrhotic liver disease with prior right hepatic lobe resection. Stabl e appearing 2.6 cm hypodense focus of the right hepatic lobe is likely benign. There is mild intrahep atic biliary ductal prominence. A debris-filled common bile duct stent. Patency of the portal vein. Unremarkable kidneys. There is no hydronephrosis. Unremarkable prostate. Mild nonspecific urinary semaj dder wall thickening. Atherosclerosis of the aorta without aneurysm. Surgical clips of the bilateral inguinal canals. Unchanged scattered adenopathy of the lower chest and abdomen includes a stable 1.5 x 2.0 cm periaortic lymph node on image 169. Unchanged 2.8 x 1.3 cm gastrohepatic lymph node. Abdominal collateral vessels with diffuse mesenteric edema and small volume of abdominal pelvic ascit es. No bowel obstruction. Moderate colonic fecal retention. There is moderate wall thickening of the colon which is most pronounced in the ascending and transverse segments. Multifocal small bowel wall thickening is noted with scattered air-fluid levels. Small bowel anastomosis of the left midabdomen. Postoperative changes of the anterior abdominal wall. Degenerative changes of the spine, pelvis and h ips. IMPRESSION: 1. Cirrhotic liver disease with prior right hepatic lobe resection. 2. Stigmata of portal venous hypertension with small volume of abdominal pelvic ascites. 3. Mild intrahepatic biliary ductal prominence with common bile duct stent in place. 4. Multifocal large and small bowel wall thickening is likely secondary to the portal venous hyperten wilfred. A nonspecific infectious or inflammatory enterocolitis could appear similarly. 5. No bowel obstruction. ACT 112: Negative or not required by law. The above report was generated using voice recognition software. It may contain grammatical, syntax o r spelling errors. Electronically signed by: Sujit Velarde M.D. 09/04/2021 8:46 AM
[2021-09-04 08:50] LABS: A calco-baum cmplx NotReported Not Detected (NotDetected); Bact fragilis Not Reported Not Detected (NotDetected); C auris Not Reported Not Detected (NotDetected); CTX-M Resistant Gene Not Detected (NotDetected); Calbicans Not Reported Not Detected (NotDetected); Candida glabrata Not Reported Not Detected (NotDetected); Candida krusei Not Reported Not Detected (NotDetected); Cneoformans/gatti Not Reported Not Detected (NotDetected); Cparapsilosis Not Reported Not Detected (NotDetected); Ctropicalis Not Reported Not Detected (NotDetected); E cloacae compx Not Reported Not Detected (NotDetected); Efaecalis Not Reported Not Detected (NotDetected); Efaecium Not Reported Not Detected (NotDetected); Enterobacterales DETECTED (NotDetected); Enterobacterales Not Reported DETECTED (NotDetected); Escherichia coli Not Reported DETECTED (NotDetected); H influenzae Not Reported Not Detected (NotDetected); IMP Resistant Gene Not Detected (NotDetected); K aerogenes Not Reported Not Detected (NotDetected); KPC Resistant Gene Not Detected (NotDetected); Koxytoca Not Reported Not Detected (NotDetected); Kpneumoniae grp Not Reported Not Detected (NotDetected); Lmonocyt Not Reported Not Detected (NotDetected); N meningitidis Not Reported Not Detected (NotDetected); NDM Resistant Gene Not Detected (NotDetected); OXA 48 Like Resistant Gene Not Detected (NotDetected); P aeruginosa Not Reported Not Detected (NotDetected); Proteus spp Not Reported Not Detected (NotDetected); Salmonella spp Not Reported Not Detected (NotDetected); Smarcescens Not Reported Not Detected (NotDetected); Staph lugdunensis Not Reported Not Detected (NotDetected); Staph spp. Not Reported Not Detected (NotDetected); Staphaureus Not Reported Not Detected (NotDetected); Staphepi Not Reported Not Detected (NotDetected); Stenmaltophilia Not Reported Not Detected (NotDetected); Strep agal(GrpB) Not Reported Not Detected (NotDetected); Strep pneum Not Reported Not Detected (NotDetected); Strep pyog (GrpA) Not Reported Not Detected (NotDetected); Strep spp Not Reported Not Detected (NotDetected); VIM Resistant Gene Not Detected (NotDetected); mcr-1 Colistin Resistant Gene Not Detected (NotDetected)
[2021-09-04] MEDS: SPIRONOLACTONE 25 MG TAB PO SCH (09:12)
[2021-09-04] MEDS: SIMVASTATIN 20 MG TAB PO SCH (09:12)
[2021-09-04] MEDS: ESCITALOPRAM OXALATE 10 MG TAB PO SCH (09:12)
[2021-09-04] MEDS: buPROPion SR 150 MG TABCR PO SCH ×2 (09:12→20:31)
[2021-09-04] MEDS: INSULIN ASPART PER UNIT SC SCH ×4 (09:16→20:47)
[2021-09-04] MEDS: FUROSEMIDE 20 MG TAB PO SCH (09:16)
[2021-09-04] MEDS ORDERED: cefTRIAXone SODIUM 2,000 MG in DEXTROSE 5% 50 ML IV SCH (12:00)
[2021-09-04] MEDS: PIPERACILLIN/TAZOBACTAM 3.375 GM in DEXTROSE 5% 100 ML IV SCH ×2 (13:21→20:40)
--- NOTE | 2021-09-05 00:38 | Billing Data ---
Date of Service September 05, 2021 Coding Level of Care Code 19923 Initial Inpt Care Lvl 3
[2021-09-05] MEDS: ACETAMINOPHEN 500 MG TAB PO SCH ×2 (00:42→08:54)
[2021-09-05] MEDS: PIPERACILLIN/TAZOBACTAM 3.375 GM in DEXTROSE 5% 100 ML IV SCH ×3 (03:14→21:37)
[2021-09-05] MEDS: LEVOTHYROXINE SODIUM 175 MCG TABLET PO SCH (05:36)
[2021-09-05 06:19] LABS: Hematocrit (blood only) 37.2 % (42-52); Hemoglobin 12.4 g/dL (14.0-18.0); Mean Corpuscular Hemoglobin 33.3 pg (25-34); Mean Corpuscular Hgb Conc 33.3 g/dL (32-36); Mean Platelet Volume 10.3 fL (7.4-10.4); Platelet Count 134 K/uL (130-400); RDW Coefficient of Variation 15.5 % (11.5-14.5); RDW Standard Deviation 56.8 fL (36.4-46.3); Red Blood Count 3.72 M/uL (4.7-6.1); White Blood Count 13.55 K/uL (4.8-10.8)
[2021-09-05 06:51] LABS: Albumin Globulin Ratio 0.9 (0.9-2); Albumin Level 2.9 gm/dl (3.4-5.0); BUN Creatinine Ratio 14.1 (10-20); Bilirubin,Total 5.5 mg/dl (0.2-1.0); Calcium 8.3 mg/dl (8.5-10.1); Creatinine Clr Calc Pharmacy 60.2 ml/min; Est GFR (African American) 68.1 ml/min; Est GFR (Non-African American) 58.8 ml/min; Globulin 3.4 gm/dl (2.5-4.0); Potassium 3.5 mmol/L (3.5-5.1); Total Protein 6.3 gm/dl (6.0-8.3)
--- NOTE | 2021-09-05 07:37 | Hospitalist Progress Note ---
Date of Service September 05, 2021 Assessment & Plan (1) Fever: Plan: 65yo male with a history of cirrhosis, CKD3, IDDM2, HTN, HLD, esophageal varices s/p banding, hypothyroidism, and portal hypertension presents with a one-day history of fever, rigors, nausea, and vomiting. Sepsis with Bacteremia Patient febrile on admission 38.4, tachycardic to 129 (has since improved to mid-100s), vitals otherwise stable Received NSS 1L bolus x3 in ED CT a/p:cirrhosis and sign of Portal HTN -blood PCR = gram negative bacilli ecoli and enterbacterales -started zosyn Vanc in ED, zosyn continued, will switch once sensitivities are available -ID consulted, recommend switch abx to ceftriaxone 1g daily and metronidazole 500mg TID consider GI consult for patency of CBD stent if susceptible, may switch to oral medication Augmentin, bactrim + metro nidazole, or cipro+metronidazole -WBC 12.18 --> 13.55 trend cbc Transaminitis, hyperbilirubinemia in the setting of cirrhosis Found on admission, patient has a history of both hyperbilirubinemia and transaminitis, likely secondary to known cirrhosis Patient follows with GI at [facility] (on liver transplant list) - pt requests records to be sent to addresser Po-Zaki Cerna ([place]) (fax [phone]) GI consulted, awaiting recommendations -Total Bili 1.8-->5.5 -AST 56-->99 -ALT 37-->77 -alk Phos 120-->91 Trend daily CMP Hyponatremia -resolved Sodium on admission 133, possibly secondary to poor PO intake and vomiting --> recheck 134 received 4L NSS Trend daily BMP Hypomagnesemia Magnesium 1.4 on admission Received mag sulfate 1g IV x1 in ED Recheck Mg 2 GERD Continue home omeprazole, will add famotidine 20mg IV bid IDDM2 HbA1c 6.0% (07/05/21) Patient's home regimen held on admission Continue BSG checks, sliding-scale insulin, hypoglycemic protocol CKD3 Creatinine on admission 1.16 (baseline 1.0-1.2) received 3L NSS Trend daily BMP GERD: continue home omeprazole HLD: continue home simvastatin HTN: BP well-controlled on admission, continue home regimen Hypothyroidism: continue home levothyroxine 175mcg PO qAM MDD: continue home bupropion FEN: carb consistent Code status: full code DVT ppx: SCDs Held home meds: metformin, aspart, glargine, CBD Consults: gastroenterology, ID PT/OT: ordered Dispo: med/telemetry (2) Cirrhosis: (3) CKD (chronic kidney disease), stage III: (4) Controlled type 2 diabetes mellitus, with long-term current use of insulin: (5) GERD (gastroesophageal reflux disease): (6) Hypertension: (7) Hyperlipidemia: (8) Hypothyroidism: (9) Portal hypertension: Admission and Anticipated Discharge Date Admission Date: September 04, 2021 Supervising Physician Co-Signing Physician Notes Resident Physician Supervision Note: I independently interviewed and examined the patient and verified the trivedi history and physical, reviewed labs and image studies and agree with resident Dr. Joya findings and care plan. Subjective Patient seen at bedside calm cooperative comfortable, states his shivering has stopped since yesterday afternoon. He denies headache dizziness fever chills SOB abd pain loss of appetite. States he slept ate well. Patient understands we are continuing to monitor his response to antibiotics. No acute concerns at this time. Review of Systems Review of Systems: Negative fever chills Negative headache dizziness Negative chest pain palpitations SOB Negative nausea vomitting diarrhea constipation Negative numbness tingling rash swelling Physical Exam Constitutional: well developed, well nourished and cooperative Eyes: PERRL, conjunctivae normal, anicteric sclerae ENMT: external ear and nose normal, oropharynx normal Neck: trachea midline, no thyromegaly Respiratory: normal respiratory effort, lungs clear to auscultation Cardiovascular: RRR, no murmur, no edema Chest (Breasts): Chest: normal inspection of chest Gastrointestinal (Abdomen): Inspection/Auscultation: abdomen normal to inspection Percussion/Palpation: abdomen soft; abdomen nontender Skin: no rashes, warm and dry Neurologic: CN's II-XI intact bilaterally Psychiatric: A+Ox3, euthymic affect Results & Data Results & Data ([facility]) Vital Signs (Past 12 Hours) Vital Signs Temp Pulse Pulse Pulse Resp BP BP 09/05/21 04:00 36.7 C 67 18 107/64 09/04/21 23:59 87 09/04/21 22:07 36.9 C 89 16 101/64 09/04/21 20:21 36.7 C 90 16 103/64 Pulse Ox 09/05/21 04:00 96 09/04/21 23:59 09/04/21 22:07 98 09/04/21 20:21 97 Laboratory Results 09/05/21 09/05/21 09/05/21 Range/Units 11:38 09:42 07:33 WBC (4.8-10.8) K/uL RBC (4.7-6.1) M/uL Hgb (14.0-18.0) g/dL Hct (42-52) % MCV (80-100) fL MCH (25-34) pg MCHC (32-36) g/dL RDW Std Deviation (36.4-46.3) fL RDW Coeff of Debby (11.5-14.5) % Plt Count (130-400) K/uL MPV (7.4-10.4) fL Sodium (136-145) mmol/L Potassium (3.5-5.1) mmol/L Chloride (98-107) mmol/L Carbon Dioxide (21-32) mmol/L Anion Gap (3-11) BUN (6-23) mg/dl Creatinine (0.6-1.4) mg/dl Est Cr Clr Drug Dosing ml/min Est GFR ( Amer) ml/min Est GFR (Non-Af Amer) ml/min BUN/Creatinine Ratio (10-20) Glucose (70-99(Fasting)) mg/dl POC Glucose 139 H 103 H (70-99) mg/dl Calcium (8.5-10.1) mg/dl Total Bilirubin (0.2-1.0) mg/dl AST (13-39) U/L ALT (7-52) U/L Alkaline Phosphatase (34-104) U/L Total Protein (6.0-8.3) gm/dl Albumin (3.4-5.0) gm/dl Globulin (2.5-4.0) gm/dl Albumin/Globulin Ratio (0.9-2) Stl C. cayetanensis PCR Not Detected (NotDetected) Stool Rotavirus A PCR Not Detected (NotDetected) Stl Adenov F 40/41 PCR Not Detected (NotDetected) Stool Astrovirus (PCR) Not Detected (NotDetected) Stool Campylobacter PCR Not Detected (NotDetected) Stl C. diff Tox A/B PCR Not Detected (NotDetected) Stool Cryptosporidium PCR Not Detected (NotDetected) Stl E.coli Shiga Tox PCR Not Detected (NotDetected) Stl Enterotoxigenic E PCR Not Detected (NotDetected) Stool EPEC (PCR) Not Detected (NotDetected) Stool EAEC (PCR) Not Detected (NotDetected) Stl E. histolytica PCR Not Detected (NotDetected) Stool Giardia Lamblia PCR Not Detected (NotDetected) Stool Salmonella PCR Not Detected (NotDetected) Stool Sapovirus (PCR) Not Detected (NotDetected) Stl P. shigelloides PCR Not Detected (NotDetected) Stl Shigella/EIEC PCR Not Detected (NotDetected) St Y.enterocolitica PCR Not Detected (NotDetected) Stool Vibrio (PCR) Not Detected (NotDetected) Stl Vibrio cholerae PCR Not Detected (NotDetected) Stl Norovirus GI/GII PCR Not Detected (NotDetected) 09/05/21 09/05/21 09/04/21 Range/Units 05:37 05:37 20:46 WBC 13.55 H (4.8-10.8) K/uL RBC 3.72 L (4.7-6.1) M/uL Hgb 12.4 L (14.0-18.0) g/dL Hct 37.2 L (42-52) % MCV 100.0 (80-100) fL MCH 33.3 (25-34) pg MCHC 33.3 (32-36) g/dL RDW Std Deviation 56.8 H (36.4-46.3) fL RDW Coeff of Debby 15.5 H (11.5-14.5) % Plt Count 134 (130-400) K/uL MPV 10.3 (7.4-10.4) fL Sodium 134 L (136-145) mmol/L Potassium 3.5 (3.5-5.1) mmol/L Chloride 103 (98-107) mmol/L Carbon Dioxide 24 (21-32) mmol/L Anion Gap 7 (3-11) BUN 18 (6-23) mg/dl Creatinine 1.28 (0.6-1.4) mg/dl Est Cr Clr Drug Dosing 60.2 ml/min Est GFR ( Amer) 68.1 ml/min Est GFR (Non-Af Amer) 58.8 ml/min BUN/Creatinine Ratio 14.1 (10-20) Glucose 114 H (70-99(Fasting)) mg/dl POC Glucose 137 H (70-99) mg/dl Calcium 8.3 L (8.5-10.1) mg/dl Total Bilirubin 5.5 H (0.2-1.0) mg/dl AST 99 H (13-39) U/L ALT 77 H (7-52) U/L Alkaline Phosphatase 91 (34-104) U/L Total Protein 6.3 (6.0-8.3) gm/dl Albumin 2.9 L (3.4-5.0) gm/dl Globulin 3.4 (2.5-4.0) gm/dl Albumin/Globulin Ratio 0.9 (0.9-2) Stl C. cayetanensis PCR (NotDetected) Stool Rotavirus A PCR (NotDetected) Stl Adenov F 40/41 PCR (NotDetected) Stool Astrovirus (PCR) (NotDetected) Stool Campylobacter PCR (NotDetected) Stl C. diff Tox A/B PCR (NotDetected) Stool Cryptosporidium PCR (NotDetected) Stl E.coli Shiga Tox PCR (NotDetected) Stl Enterotoxigenic E PCR (NotDetected) Stool EPEC (PCR) (NotDetected) Stool EAEC (PCR) (NotDetected) Stl E. histolytica PCR (NotDetected) Stool Giardia Lamblia PCR (NotDetected) Stool Salmonella PCR (NotDetected) Stool Sapovirus (PCR) (NotDetected) Stl P. shigelloides PCR (NotDetected) Stl Shigella/EIEC PCR (NotDetected) St Y.enterocolitica PCR (NotDetected) Stool Vibrio (PCR) (NotDetected) Stl Vibrio cholerae PCR (NotDetected) Stl Norovirus GI/GII PCR (NotDetected) 06/27/22 Range/Units 17:09 WBC (4.8-10.8) K/uL RBC (4.7-6.1) M/uL Hgb (14.0-18.0) g/dL Hct (42-52) % MCV (80-100) fL MCH (25-34) pg MCHC (32-36) g/dL RDW Std Deviation (36.4-46.3) fL RDW Coeff of Debby (11.5-14.5) % Plt Count (130-400) K/uL MPV (7.4-10.4) fL Sodium (136-145) mmol/L Potassium (3.5-5.1) mmol/L Chloride (98-107) mmol/L Carbon Dioxide (21-32) mmol/L Anion Gap (3-11) BUN (6-23) mg/dl Creatinine (0.6-1.4) mg/dl Est Cr Clr Drug Dosing ml/min Est GFR ( Amer) ml/min Est GFR (Non-Af Amer) ml/min BUN/Creatinine Ratio (10-20) Glucose (70-99(Fasting)) mg/dl POC Glucose 159 H (70-99) mg/dl Calcium (8.5-10.1) mg/dl Total Bilirubin (0.2-1.0) mg/dl AST (13-39) U/L ALT (7-52) U/L Alkaline Phosphatase (34-104) U/L Total Protein (6.0-8.3) gm/dl Albumin (3.4-5.0) gm/dl Globulin (2.5-4.0) gm/dl Albumin/Globulin Ratio (0.9-2) Stl C. cayetanensis PCR (NotDetected) Stool Rotavirus A PCR (NotDetected) Stl Adenov F 40/41 PCR (NotDetected) Stool Astrovirus (PCR) (NotDetected) Stool Campylobacter PCR (NotDetected) Stl C. diff Tox A/B PCR (NotDetected) Stool Cryptosporidium PCR (NotDetected) Stl E.coli Shiga Tox PCR (NotDetected) Stl Enterotoxigenic E PCR (NotDetected) Stool EPEC (PCR) (NotDetected) Stool EAEC (PCR) (NotDetected) Stl E. histolytica PCR (NotDetected) Stool Giardia Lamblia PCR (NotDetected) Stool Salmonella PCR (NotDetected) Stool Sapovirus (PCR) (NotDetected) Stl P. shigelloides PCR (NotDetected) Stl Shigella/EIEC PCR (NotDetected) St Y.enterocolitica PCR (NotDetected) Stool Vibrio (PCR) (NotDetected) Stl Vibrio cholerae PCR (NotDetected) Stl Norovirus GI/GII PCR (NotDetected) Medications Administered Current Inpatient Medications Bupropion HCl (Bupropion Sr 150 Mg Tabcr) 150 mg PO BID YENNI Stop: 10/04/21 08:59 Last Admin: 09/05/21 08:52 Dose: 150 mg Documented by: Dextrose (Dextrose 50% 50 Ml Syringe) 25 - 50 ml IV UD PRN; Protocol PRN Reason: Hypoglycemia Protocol Stop: 10/04/21 01:44 Diphenhydramine HCl (Diphenhydramine Capsule 25 Mg Cap) 25 mg PO HS PRN PRN Reason: Insomnia Stop: 10/04/21 01:44 Last Admin: 09/04/21 22:03 Dose: 25 mg Documented by: Escitalopram Oxalate (Escitalopram Oxalate 10 Mg Tab) 10 mg PO DAILY YENNI Stop: 10/04/21 08:59 Last Admin: 09/05/21 08:53 Dose: 10 mg Documented by: Ferrous Sulfate (Ferrous Sulfate 325 Mg Tab) 325 mg PO Q2D@0900 YENNI Stop: 10/05/21 08:59 Last Admin: 09/05/21 08:53 Dose: 325 mg Documented by: Furosemide (Furosemide 20 Mg Tab) 20 mg PO QAM YENNI Stop: 10/04/21 08:59 Last Admin: 09/05/21 08:52 Dose: 20 mg Documented by: Glucagon (Glucagon For Inj 1 Mg Vial) 1 mg SQ UD PRN; Protocol PRN Reason: Hypoglycemia Protocol Stop: 10/04/21 01:44 Glucose (Glucose 10 Tabs/Tube) 4 - 8 tabs PO UD PRN; Protocol PRN Reason: Hypoglycemia Protocol Stop: 10/04/21 01:44 Glucose (Glucose 40% Gel 15 Gm Tube) 15 - 30 gm PO UD PRN; Protocol PRN Reason: Hypoglycemia Protocol Stop: 10/04/21 01:44 Famotidine 20 mg/ Syringe 5 mls @ 2.5 mls/min IV BID [facility] Stop: 10/04/21 01:49 Last Admin: 09/05/21 08:52 Dose: 2.5 mls/min Documented by: Pantoprazole Sodium 40 mg/ (Syringe) 10 mls @ 5 mls/min IV BID [facility] Stop: 10/04/21 01:49 Last Admin: 09/05/21 09:35 Dose: 5 mls/min Documented by: Piperacillin Sod/Tazobactam (Sod 3.375 gm/ Dextrose) 115 mls @ 28.75 mls/hr IV Q8H [facility]; Protocol Stop: 09/18/21 12:14 Last Admin: 09/05/21 11:44 Dose: 28.8 mls/hr Documented by: Ibuprofen (Ibuprofen 200 Mg Tab) 400 mg PO QID PRN PRN Reason: Fever Stop: 10/05/21 09:14 Insulin Aspart (Insulin Aspart Per Unit) 0 units SC ACHS [facility] Stop: 10/04/21 07:29 Last Admin: 09/05/21 12:24 Dose: 3 units Documented by: Levothyroxine Sodium (Levothyroxine Sodium 175 Mcg Tablet) 175 mcg PO DAILYBB [facility] Stop: 10/04/21 06:29 Last Admin: 09/05/21 05:36 Dose: 175 mcg Documented by: Melatonin (Melatonin 3 Mg Tab) 3 mg PO HS PRN PRN Reason: Sleep Stop: 10/04/21 01:44 Last Admin: 09/04/21 22:03 Dose: 3 mg Documented by: Miscellaneous (Carbohydrates For Hypoglycemia ) 15 - 30 gm PO UD PRN PRN Reason: Hypoglycemia Protocol Stop: 10/04/21 01:44 Ondansetron HCl (Ondansetron Inj 2 Mg/Ml 2 Ml Vial) 4 mg IV Q4H PRN PRN Reason: nausea Stop: 10/04/21 01:44 Last Admin: 09/04/21 09:13 Dose: 4 mg Documented by: Simvastatin (Simvastatin 20 Mg Tab) 20 mg PO DAILY [facility] Stop: 10/04/21 08:59 Last Admin: 09/05/21 08:52 Dose: 20 mg Documented by: Spironolactone (Spironolactone 25 Mg Tab) 50 mg PO QAM YENNI Stop: 10/04/21 08:59 Last Admin: 09/05/21 08:52 Dose: 50 mg Documented by: Resident Activity Tracking Resident Involvement: Resident Care Provided Care Provided: Adult Hospital Medicine (1) CKD (chronic kidney disease), stage III Chronic kidney disease stage 3 subtype: stage 3a (GFR 45-59) Qualified Code(s): N18.31 - Chronic kidney disease, stage 3a (2) Hypothyroidism Hypothyroidism type: unspecified Qualified Code(s): E03.9 - Hypothyroidism, unspecified (3) Controlled type 2 diabetes mellitus, with long-term current use of insulin Diabetes mellitus complication status: without complication Qualified Code(s): E11.9 - Type 2 diabetes mellitus without complications; Z79.4 - group home (current) use of insulin (4) GERD (gastroesophageal reflux disease) Esophagitis presence: without esophagitis Qualified Code(s): K21.9 - Gastro- esophageal reflux disease without esophagitis (5) Hypertension Hypertension type: essential hypertension Qualified Code(s): I10 - Essential (primary) hypertension
[2021-09-05] MEDS: FAMOTIDINE 20 MG in SYRINGE 3 ML IV SCH ×2 (08:52→21:37)
[2021-09-05] MEDS: SPIRONOLACTONE 25 MG TAB PO SCH (08:52)
[2021-09-05] MEDS: FUROSEMIDE 20 MG TAB PO SCH (08:52)
[2021-09-05] MEDS: SIMVASTATIN 20 MG TAB PO SCH (08:52)
[2021-09-05] MEDS: buPROPion SR 150 MG TABCR PO SCH ×2 (08:52→21:38)
[2021-09-05] MEDS: ESCITALOPRAM OXALATE 10 MG TAB PO SCH (08:53)
[2021-09-05] MEDS: FERROUS SULFATE 325 MG TAB PO SCH (08:53)
[2021-09-05] MEDS: INSULIN ASPART PER UNIT SC SCH ×4 (08:54→21:38)
[2021-09-05] MEDS ORDERED: IBUPROFEN 200 MG TAB PO PRN (09:15)
[2021-09-05] MEDS: PANTOprazole 40 MG in SYRINGE 0 ML IV SCH ×2 (09:35→21:37)
[2021-09-05 11:20] LABS: Adenovirus F 40/41 PCR Not Detected (NotDetected); Astrovirus PCR Not Detected (NotDetected); Campylobacter PCR Not Detected (NotDetected); Clostridium diff Toxin A/B PCR Not Detected (NotDetected); Cryptosporidium PCR Not Detected (NotDetected); Cyclospora cayetanensis PCR Not Detected (NotDetected); Entamoeba histolytica PCR Not Detected (NotDetected); Enteroaggregative E.coli(EAEC) Not Detected (NotDetected); Enteropathogenic E.coli (EPEC) Not Detected (NotDetected); Enterotoxigenic E.coli (ETEC) Not Detected (NotDetected); Giardia lamblia PCR Not Detected (NotDetected); Norovirus GI/GII PCR Not Detected (NotDetected); Plesiomonas shigelloides PCR Not Detected (NotDetected); Rotavirus A PCR Not Detected (NotDetected); Salmonella PCR Not Detected (NotDetected); Sapovirus PCR Not Detected (NotDetected); Shiga-like Toxin E.coli (STEC) Not Detected (NotDetected); Shigella/Enteroinvasive E.coli Not Detected (NotDetected); Vibrio cholerae PCR Not Detected (NotDetected); Vibrio species PCR Not Detected (NotDetected); Yersinia enterocolitica PCR Not Detected (NotDetected)
--- NOTE | 2021-09-05 15:29 | Gastrointestinal Consultation ---
Date of Consultation September 05, 2021 Assessment & Plan (1) Cirrhosis of liver: (2) Awaiting liver transplant: (3) Fever: (4) Bacteremia due to Gram-negative bacteria: (5) Hyperbilirubinemia: This is a 65 y/o male with h/o BERNAL cirrhosis, ascites, Portal HTN, varices, s/p CBD stent in place, admitted with fever, leukocytosis, w/u concerning for Gram neg bacteremia of unknown source. Has acute on chronic hyperbilirubinemia. Today feeling better; no further fever. On exam abd soft, nontender. Given presentation of bacteremia, elevated bili, presence of CBD stent, wonder about possible involvement of stent for source (debris, infectious etiology), CBD stricture. - Diet as tolerated; NPO after midnight - Will plan for ERCP tomorrow to evaluate his stent - ABX as per primary/ID teams - Hydration - Trend daily MELD labs, CBC, INR - Supportive care for other co-morbids as per primary teams Thank you for allowing us to participate in the care of this patient. Please call with any acute changes, questions or concerns. Please see addendum below with additional recommendation from my supervising physician. Supervising Physician Co-Signing Physician Notes I performed a history and physical examination of the patient today, including specifically on physical exam - soft abdomen. I have discussed the patient's management with the advanced practitioner. Please refer to the nurse practitioner's note for the documented findings and plan of care. Unclear source of GNB however in view of elevated bilirubin and LIHDD, need to evaluate his hepaticojejunostomy if possible. He also has a retained stent sine his surgery many year ago. Plan EGD/ERCP tomorrow. Other source could be his mild colitis. History of Present Illness Reason for Consultation: cirrhosis, bacteremia unknown source Requesting Physician: Dr Rowe Attending Physician: Kerry Nicole MD History of Present Illness This is a 65 yo male with a history of BERNAL cirrhosis, c/b esophageal varices w/ h/o bleeding, s/p banding, ascites, portal HTN, follows with [facility] and has been on the transplant list since 2015, CKD3, DM, HTN, HLD, and others who presented with a one-day history of fever, rigors, nausea, nonbloody vomiting, and chest pain. Symptoms stated around 5:30pm on 09/03. He had previous h/o e. coli sepsis in 06/2020, and had similar symptoms, therefore presented to the ED. Tmax at home was 100.9. On arrival was febrile, tachycardic, had leukocytosis, elevated LFTs and bili, hyponatremia, CT w/ cirrhosis and portal HTN, small ascites, CBD stent in place w/ mild IHDD, multifocal large/small bowel wall thickening is likely secondary to the portal venous HTN vs nonspecific infectious or inflammatory enterocolitis; no obs. Was tx w/ IVF, Zofran, and Zosyn. EKG w/ sinus tach, poor R wave progression without ectopy. Patient reports he feels significantly better than when he came in. Patient denies Cough, sore throat, hematochezia, melena, diarrhea. Today he feels improved, is HD stable, afebrile. He is tolerating a regular diet. BCx + for gram neg bacilli e. coli and enterbacterales. ID consulted, ABX now ceftriaxone and Flagyl. WBC now 13.55, bili now 5.5, ALP 91, INR 1.1. He has moved his bowels, has some loose nonbloody, nonmelanotic stool. Denies abd pain, n/v, hematemesis, fever, chills, rigors, CP, SOB, leg edema. No NSAIDs. States he has had sepsis 8 times. Previous to admission he was in his usual state of health; has been active, going to the gym. Appetite has been a little down. 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 Surgical pathology was benign. - Subsequent diagnosed with cirrhosis due to BERNAL - History of variceal bleeding in 2014, banded. Was previously on propranolol for secondary prophylaxis, but stopped in 2018 due to hypotension. Even required midodrine in early 2019, now tapered off. - Listed for liver transplantation on 11/05/2014 Last EGD 05/2020: Grade I esophageal varices. - Portal hypertensive gastropathy. - Normal examined duodenum. - No specimens collected Allergies Allergy/AdvReac Type Severity Reaction Status Date / Time exenatide [From Byetta] AdvReac Intermediate Diarrhea Verified 09/03/21 20:48 Home Medications Medication Instructions Recorded Confirmed Type biotin 10 mg tablet 10 mg PO QAM #30 tab 08/11/18 09/03/21 Rx ferrous sulfate 325 mg (65 mg 325 mg PO BID #60 tab 08/11/18 09/03/21 Rx iron) tablet (iron) cyanocobalamin (vitamin B-12) 1,000 mcg PO QAM 11/25/18 09/03/21 History 1,000 mcg capsule calcium carbonate 600 mg calcium 600 mg PO BID 12/25/18 09/03/21 History (1,500 mg) tablet (Calcium) cholecalciferol (vitamin D3) 50 1,000 unit PO BID 12/25/18 09/03/21 History mcg (2,000 unit) capsule (Vitamin D3) cannabidiol (CBD) extract 1 dose PO BID 01/09/19 09/03/21 History acetaminophen 500 mg tablet 500 mg PO Q6H PRN 07/03/20 09/03/21 History (Tylenol Extra Strength) blood sugar diagnostic (OneTouch ea 02/10/21 04/07/21 History Ultra Blue Test Strip) blood-glucose sensor (Dexcom G6 02/10/21 04/07/21 History Sensor) bupropion HCl 150 mg tablet,12 hr 150 mg PO BID #180 tab 06/27/21 09/03/21 Rx sustained-release furosemide 20 mg tablet 20 mg PO QAM #90 tab 06/27/21 09/03/21 Rx levothyroxine 175 mcg tablet 175 mcg PO QAM #90 tab 06/27/21 09/03/21 Rx metformin 1,000 mg tablet 1,000 mg PO BID #120 tab 06/27/21 09/03/21 Rx omeprazole 40 mg capsule,delayed 40 mg PO BID #120 cap 06/27/21 09/03/21 Rx release pen needle, diabetic 32 gauge x #100 ea 06/27/21 Rx 5/16" simvastatin 20 mg tablet 20 mg PO DAILY #90 tab 06/27/21 09/03/21 Rx spironolactone 50 mg tablet 50 mg PO QAM #90 tab 06/27/21 09/03/21 Rx pen needle, diabetic 31 gauge x #100 ea 07/19/21 Rx 5/16" (TRUEplus Pen Needle) escitalopram oxalate 10 mg tablet 10 mg PO DAILY #90 tab 08/08/21 09/03/21 Rx insulin aspart U-100 100 unit/mL 0 unit SUBCUT DIRECTED 09/03/21 09/03/21 Hi story (3 mL) subcutaneous pen (Novolog Flexpen U-100 Insulin aspart) insulin glargine 100 unit/mL (3 15 unit SUBCUT QAM 09/03/21 09/03/21 History mL) subcutaneous pen (Lantus Solostar U-100 Insulin) ondansetron 4 mg disintegrating See Rx Instructions .ROUTE 09/05/21 Rx tablet .COMPLEX #30 tab Patient History Medical History Anemia Cirrhosis of liver Depression DM type 2 (diabetes mellitus, type 2) IDDM Esophageal varices hx banding GERD (gastroesophageal reflux disease) GI bleed hx Gram-negative bacteremia History of ascites Hyperlipidemia Hypertension hx Hypothyroidism Peripheral neuropathy Post traumatic stress disorder Sepsis Surgical History History of abdominal paracentesis multiple (last 2 years ago) History of cholecystectomy History of colonoscopy History of ERCP History of esophagogastroduodenoscopy (EGD) History of herniorrhaphy WITH MESH-2018 History of surgery of liver Hepatic lobectomy (benign tumor) History of tooth extraction Hx of hand surgery RT HAND/ARM SURGERY (METAL PLATE D/T FX) Hx of vasectomy S/P debridement ABDOMINAL WOUND 2017 Family History Mother Diabetes Grandmother No problems noted. Grandmother (Maternal) Diabetes Family/Other Heart disease Cancer Hypertension Other No family history of adverse response to anesthesia Denies family history of Ovarian cancer Prostate cancer Myocardial infarction Breast cancer Colorectal cancer Social History Smoking Status: Former smoker Cigarettes Per Day: QUIT 35 YEARs ago; Second Hand Exposure: No; Do You Dip or Chew Tobacco: No; Hx Alcohol Use: No Hx Substance Use: No Preferred Language: Turkish Communication Ability: Effective Enterprise Integration Architect Required: No Beliefs That Will Affect Care: None marital status: Current Living Situation: Spouse current occupational status: retired How many Children do You have: 3 Other Information That Helps Us Care for You: No Feels Safe at Home: Yes Safety Concerns: Feels Safe At This Time Childhood Exposure to Second-Hand Smoke: No caffeine: Yes Dental Care, Regularly: Yes Physical Activity Frequency: 3-4 Times per Week Seatbelt Use: always Sunscreen Use: No Assistive Devices: None Review of Systems Review of Systems: All systems reviewed & are unremarkable except as noted in HPI & below Physical Exam Constitutional: WD/WN, vitals as above Eyes: + chronically ill, NAD Respiratory: normal respiratory effort, lungs clear to auscultation Cardiovascular: RRR, no murmur, no edema Gastrointestinal (Abdomen): normal bowel sounds, soft, nontender, no hepatosplenomegaly Multiple healed surgical scars; no significant ascites, non distended Skin: no rashes, warm and dry Psychiatric: A+Ox3, euthymic affect Results & Data ([facility]) Vital Signs (Past 12 Hours) Vital Signs Temp Pulse Resp BP Pulse Ox 09/05/21 08:28 36.8 C 95 H 17 130/67 96 09/05/21 04:00 36.7 C 67 18 107/64 96 Laboratory Results 09/05/21 09/05/21 09/05/21 Range/Units 11:38 09:42 07:33 WBC (4.8-10.8) K/uL RBC (4.7-6.1) M/uL Hgb (14.0-18.0) g/dL Hct (42-52) % MCV (80-100) fL MCH (25-34) pg MCHC (32-36) g/dL RDW Std Deviation (36.4-46.3) fL RDW Coeff of Debby (11.5-14.5) % Plt Count (130-400) K/uL MPV (7.4-10.4) fL Sodium (136-145) mmol/L Potassium (3.5-5.1) mmol/L Chloride (98-107) mmol/L Carbon Dioxide (21-32) mmol/L Anion Gap (3-11) BUN (6-23) mg/dl Creatinine (0.6-1.4) mg/dl Est Cr Clr Drug Dosing ml/min Est GFR ( Amer) ml/min Est GFR (Non-Af Amer) ml/min BUN/Creatinine Ratio (10-20) Glucose (70-99(Fasting)) mg/dl POC Glucose 139 H 103 H (70-99) mg/dl Calcium (8.5-10.1) mg/dl Total Bilirubin (0.2-1.0) mg/dl AST (13-39) U/L ALT (7-52) U/L Alkaline Phosphatase (34-104) U/L Total Protein (6.0-8.3) gm/dl Albumin (3.4-5.0) gm/dl Globulin (2.5-4.0) gm/dl Albumin/Globulin Ratio (0.9-2) Stl C. cayetanensis PCR Not Detected (NotDetected) Stool Rotavirus A PCR Not Detected (NotDetected) Stl Adenov F 40/41 PCR Not Detected (NotDetected) Stool Astrovirus (PCR) Not Detected (NotDetected) Stool Campylobacter PCR Not Detected (NotDetected) Stl C. diff Tox A/B PCR Not Detected (NotDetected) Stool Cryptosporidium PCR Not Detected (NotDetected) Stl E.coli Shiga Tox PCR Not Detected (NotDetected) Stl Enterotoxigenic E PCR Not Detected (NotDetected) Stool EPEC (PCR) Not Detected (NotDetected) Stool EAEC (PCR) Not Detected (NotDetected) Stl E. histolytica PCR Not Detected (NotDetected) Stool Giardia Lamblia PCR Not Detected (NotDetected) Stool Salmonella PCR Not Detected (NotDetected) Stool Sapovirus (PCR) Not Detected (NotDetected) Stl P. shigelloides PCR Not Detected (NotDetected) Stl Shigella/EIEC PCR Not Detected (NotDetected) St Y.enterocolitica PCR Not Detected (NotDetected) Stool Vibrio (PCR) Not Detected (NotDetected) Stl Vibrio cholerae PCR Not Detected (NotDetected) Stl Norovirus GI/GII PCR Not Detected (NotDetected) 09/05/21 09/05/21 09/04/21 Range/Units 05:37 05:37 20:46 WBC 13.55 H (4.8-10.8) K/uL RBC 3.72 L (4.7-6.1) M/uL Hgb 12.4 L (14.0-18.0) g/dL Hct 37.2 L (42-52) % MCV 100.0 (80-100) fL MCH 33.3 (25-34) pg MCHC 33.3 (32-36) g/dL RDW Std Deviation 56.8 H (36.4-46.3) fL RDW Coeff of Debby 15.5 H (11.5-14.5) % Plt Count 134 (130-400) K/uL MPV 10.3 (7.4-10.4) fL Sodium 134 L (136-145) mmol/L Potassium 3.5 (3.5-5.1) mmol/L Chloride 103 (98-107) mmol/L Carbon Dioxide 24 (21-32) mmol/L Anion Gap 7 (3-11) BUN 18 (6-23) mg/dl Creatinine 1.28 (0.6-1.4) mg/dl Est Cr Clr Drug Dosing 60.2 ml/min Est GFR ( Amer) 68.1 ml/min Est GFR (Non-Af Amer) 58.8 ml/min BUN/Creatinine Ratio 14.1 (10-20) Glucose 114 H (70-99(Fasting)) mg/dl POC Glucose 137 H (70-99) mg/dl Calcium 8.3 L (8.5-10.1) mg/dl Total Bilirubin 5.5 H (0.2-1.0) mg/dl AST 99 H (13-39) U/L ALT 77 H (7-52) U/L Alkaline Phosphatase 91 (34-104) U/L Total Protein 6.3 (6.0-8.3) gm/dl Albumin 2.9 L (3.4-5.0) gm/dl Globulin 3.4 (2.5-4.0) gm/dl Albumin/Globulin Ratio 0.9 (0.9-2) Stl C. cayetanensis PCR (NotDetected) Stool Rotavirus A PCR (NotDetected) Stl Adenov F 40/41 PCR (NotDetected) Stool Astrovirus (PCR) (NotDetected) Stool Campylobacter PCR (NotDetected) Stl C. diff Tox A/B PCR (NotDetected) Stool Cryptosporidium PCR (NotDetected) Stl E.coli Shiga Tox PCR (NotDetected) Stl Enterotoxigenic E PCR (NotDetected) Stool EPEC (PCR) (NotDetected) Stool EAEC (PCR) (NotDetected) Stl E. histolytica PCR (NotDetected) Stool Giardia Lamblia PCR (NotDetected) Stool Salmonella PCR (NotDetected) Stool Sapovirus (PCR) (NotDetected) Stl P. shigelloides PCR (NotDetected) Stl Shigella/EIEC PCR (NotDetected) St Y.enterocolitica PCR (NotDetected) Stool Vibrio (PCR) (NotDetected) Stl Vibrio cholerae PCR (NotDetected) Stl Norovirus GI/GII PCR (NotDetected) 09/04/21 Range/Units 17:09 WBC (4.8-10.8) K/uL RBC (4.7-6.1) M/uL Hgb (14.0-18.0) g/dL Hct (42-52) % MCV (80-100) fL MCH (25-34) pg MCHC (32-36) g/dL RDW Std Deviation (36.4-46.3) fL RDW Coeff of Debby (11.5-14.5) % Plt Count (130-400) K/uL MPV (7.4-10.4) fL Sodium (136-145) mmol/L Potassium (3.5-5.1) mmol/L Chloride (98-107) mmol/L Carbon Dioxide (21-32) mmol/L Anion Gap (3-11) BUN (6-23) mg/dl Creatinine (0.6-1.4) mg/dl Est Cr Clr Drug Dosing ml/min Est GFR ( Amer) ml/min Est GFR (Non-Af Amer) ml/min BUN/Creatinine Ratio (10-20) Glucose (70-99(Fasting)) mg/dl POC Glucose 159 H (70-99) mg/dl Calcium (8.5-10.1) mg/dl Total Bilirubin (0.2-1.0) mg/dl AST (13-39) U/L ALT (7-52) U/L Alkaline Phosphatase (34-104) U/L Total Protein (6.0-8.3) gm/dl Albumin (3.4-5.0) gm/dl Globulin (2.5-4.0) gm/dl Albumin/Globulin Ratio (0.9-2) Stl C. cayetanensis PCR (NotDetected) Stool Rotavirus A PCR (NotDetected) Stl Adenov F 40/41 PCR (NotDetected) Stool Astrovirus (PCR) (NotDetected) Stool Campylobacter PCR (NotDetected) Stl C. diff Tox A/B PCR (NotDetected) Stool Cryptosporidium PCR (NotDetected) Stl E.coli Shiga Tox PCR (NotDetected) Stl Enterotoxigenic E PCR (NotDetected) Stool EPEC (PCR) (NotDetected) Stool EAEC (PCR) (NotDetected) Stl E. histolytica PCR (NotDetected) Stool Giardia Lamblia PCR (NotDetected) Stool Salmonella PCR (NotDetected) Stool Sapovirus (PCR) (NotDetected) Stl P. shigelloides PCR (NotDetected) Stl Shigella/EIEC PCR (NotDetected) St Y.enterocolitica PCR (NotDetected) Stool Vibrio (PCR) (NotDetected) Stl Vibrio cholerae PCR (NotDetected) Stl Norovirus GI/GII PCR (NotDetected) Diagnostic Findings CTAP: FINDINGS: Gynecomastia. Calcified granuloma of the basal right lower lobe. Thin- walled cyst of the basal left lower lobe. Mild scarring versus atelectasis within the right middle lobe. There is no pneumatosis or pneumoperitoneum. Calcified granulomata of the spleen. Mild to moderate generalized pancreatic atrophy. Unremarkable adrenal glands. Cholecystectomy. Cirrhotic liver disease with prior right hepatic lobe resection. Stable appearing 2.6 cm hypodense focus of the right hepatic lobe is likely benign. There is mild intrahepatic biliary ductal prominence. A debris-filled common bile duct stent. Patency of the portal vein. Unremarkable kidneys. There is no hydronephrosis. Unremarkable prostate. Mild nonspecific urinary bladder wall thickening. Atherosclerosis of the aorta without aneurysm. Surgical clips of the bilateral inguinal canals. Unchanged scattered adenopathy of the lower chest and abdomen includes a stable 1.5 x 2.0 cm periaortic lymph node on image 169. Unchanged 2.8 x 1.3 cm gastrohepatic lymph node. Abdominal collateral vessels with diffuse mesenteric edema and small volume of abdominal pelvic ascites. No bowel obstruction. Moderate colonic fecal retention. There is moderate wall thickening of the colon which is most pronounc ed in the ascending and transverse segments. Multifocal small bowel wall thickening is noted with scattered air-fluid levels. Small bowel anastomosis of the left midabdomen. Postoperative changes of the anterior abdominal wall. Degenerative changes of the spine, pelvis and hips. IMPRESSION: 1. Cirrhotic liver disease with prior right hepatic lobe resection. 2. Stigmata of portal venous hypertension with small volume of abdominal pelvic ascites. 3. Mild intrahepatic biliary ductal prominence with common bile duct stent in place. 4. Multifocal large and small bowel wall thickening is likely secondary to the portal venous hypertension. A nonspecific infectious or inflammatory enterocolitis could appear similarly. 5. No bowel obstruction. CXR: IMPRESSION: No acute cardiopulmonary findings. No change in appearance of the chest. (1) Fever Fever type: unspecified Qualified Code(s): R50.9 - Fever, unspecified (2) Cirrhosis of liver Hepatic cirrhosis type: other cirrhosis Qualified Code(s): K74.69 - Other cirrhosis of liver
[2021-09-05] MEDS: diphenhydrAMINE Capsule 25 MG CAP PO PRN (21:37)
[2021-09-05] MEDS: MELATONIN 3 MG TAB PO PRN (21:37)
[2021-09-06] MEDS: INSULIN ASPART PER UNIT SC SCH ×5 (00:32→22:11)
[2021-09-06] MEDS: PIPERACILLIN/TAZOBACTAM 3.375 GM in DEXTROSE 5% 100 ML IV SCH (05:19)
[2021-09-06] MEDS: LEVOTHYROXINE SODIUM 175 MCG TABLET PO SCH (05:19)
[2021-09-06 06:03] LABS: Hematocrit (blood only) 35.6 % (42-52); Hemoglobin 12.2 g/dL (14.0-18.0); Mean Corpuscular Hemoglobin 34.4 pg (25-34); Mean Corpuscular Hgb Conc 34.3 g/dL (32-36); Mean Corpuscular Volume 100.3 fL (80-100); Mean Platelet Volume 10.4 fL (7.4-10.4); Platelet Count 142 K/uL (130-400); RDW Standard Deviation 54.8 fL (36.4-46.3); Red Blood Count 3.55 M/uL (4.7-6.1); White Blood Count 9.59 K/uL (4.8-10.8)
[2021-09-06 06:31] LABS: Albumin Globulin Ratio 0.8 (0.9-2); Albumin Level 2.8 gm/dl (3.4-5.0); BUN Creatinine Ratio 12.7 (10-20); Bilirubin,Total 4.3 mg/dl (0.2-1.0); Creatinine Clr Calc Pharmacy 65.3 ml/min; Est GFR (African American) 75.1 ml/min; Est GFR (Non-African American) 64.8 ml/min; Globulin 3.5 gm/dl (2.5-4.0); Potassium 3.4 mmol/L (3.5-5.1); Total Protein 6.3 gm/dl (6.0-8.3)
[2021-09-06] MEDS: buPROPion SR 150 MG TABCR PO SCH ×2 (08:43→22:08)
[2021-09-06] MEDS: ESCITALOPRAM OXALATE 10 MG TAB PO SCH (08:43)
[2021-09-06] MEDS: FUROSEMIDE 20 MG TAB PO SCH (08:43)
[2021-09-06] MEDS: PANTOprazole 40 MG in SYRINGE 0 ML IV SCH ×2 (08:43→22:08)
[2021-09-06] MEDS: FAMOTIDINE 20 MG in SYRINGE 3 ML IV SCH ×2 (08:43→22:07)
[2021-09-06] MEDS: SIMVASTATIN 20 MG TAB PO SCH (08:43)
[2021-09-06] MEDS: SPIRONOLACTONE 25 MG TAB PO SCH (08:43)
[2021-09-06] MEDS ORDERED: DEXTROSE 5% 1,000 ML IV SCH (09:30)
--- NOTE | 2021-09-06 09:44 | Hospitalist Progress Note ---
Date of Service September 06, 2021 Assessment & Plan (1) Fever: Plan: 65 yo M w/ pMHx. of cirrhosis, CKD3, IDDM2, HTN, HLD, esophageal varices s/p banding, hypothyroidism, and portal hypertension presents with a one-day history of fever, rigors, nausea, and vomiting. Sepsis with Bacteremia Patient febrile on admission 38.4, tachycardic to 129 (has since improved to mid-100s), vitals otherwise stable Received NSS 1L bolus x3 in ED CT a/p:cirrhosis and sign of Portal HTN - blood PCR = gram negative bacilli e coli and enterobacteria - started Zosyn Vanc in ED, switched to Ceftriaxone and metronidazole - ID consulted, if susceptible, may switch to oral medication Augmentin, bactrim + metronidazole, or cipro+metronidazole - WBC 13.55 --> 9 trend cbc Transaminitis, hyperbilirubinemia in the setting of cirrhosis Found on admission, patient has a history of both hyperbilirubinemia and transaminitis, likely secondary to known cirrhosis Patient follows with GI at [facility] (on liver transplant list) - pt requests 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 sulfate 1g IV x1 in ED Recheck Mg 2 mg. GERD Continue home omeprazole, will add famotidine 20mg IV bid IDDM2 HbA1c 6.0% (07/05/21) Patient's home regimen held on admission Continue BSG checks, sliding-scale insulin, hypoglycemic protocol CKD3 Creatinine on admission 1.16 (baseline 1.0-1.2) received 3L NSS Trend daily BMP GERD: continue home omeprazole HLD: continue home simvastatin HTN: BP well-controlled on admission, continue home regimen Hypothyroidism: continue home levothyroxine 175mcg PO qAM MDD: continue home bupropion FEN: NPO prior to ERCP, D5 added at 80/h X 1L Code status: full code DVT ppx: SCDs Held home meds: metformin, aspart, glargine, CBD Consults: gastroenterology, ID PT/OT: ordered Dispo: med/telemetry (2) Cirrhosis: (3) CKD (chronic kidney disease), stage III: (4) Controlled type 2 diabetes mellitus, with long-term current use of insulin: (5) GERD (gastroesophageal reflux disease): (6) Hypertension: (7) Hyperlipidemia: (8) Hypothyroidism: (9) Portal hypertension: Admission and Anticipated Discharge Date Admission Date: September 04, 2021 Supervising Physician Co-Signing Physician Notes Resident Physician Supervision Note: I independently interviewed and examined the patient and verified the trivedi history and physical, reviewed labs and image studies and agree with resident Dr. Domínguez findings and care plan. Subjective Aaron Pryor was doing okay today. He was having some nausea that he related to being NPO. He was also concerned with his bsg, with his AM level in the 90's. He denies chest pain, palpitations, pain, shortness of breath, trouble breathing. He notes that he normally has a low blood pressure and has been walking today without any difficulty. Review of Systems Review of Systems: per HPI Physical Exam Physical Exam: Constitutional well developed, well nourished and cooperative Eyes PERRL, conjunctivae normal, anicteric sclerae ENMT external ear and nose normal, oropharynx normal Neck trachea midline, no thyromegaly Respiratory normal respiratory effort, lungs clear to auscultation Cardiovascular RRR, no murmur, no edema Chest (Breasts) Chest:normal inspection of chest Gastrointestinal (Abdomen) Inspection/Auscultation:abdomen normal to inspection Percussion/Palpation:abdomen soft; abdomen nontender Skin no rashes, warm and dry Neurologic CN's II-XI intact bilaterally Psychiatric A+Ox3, euthymic affect Results & Data Results & Data ([facility]) Vital Signs (Past 12 Hours) Vital Signs Temp Pulse Pulse Resp BP Pulse Ox 09/06/21 08:11 36.8 C 73 18 95/59 L 92 09/06/21 04:15 36.8 C 86 20 106/69 92 09/06/21 00:17 37.0 C 79 18 113/76 92 09/05/21 23:59 82 CBC Results Results Complete Blood Count Results: RBC 3.55 M/uL (4.7-6.1) L 09/06/21 WBC 9.59 K/uL (4.8-10.8) 09/06/21 Hgb 12.2 g/dL (14.0-18.0) L 09/06/21 Hct 35.6 % (42-52) L 09/06/21 Plt Count 142 K/uL (130-400) 09/06/21 Chemistry (BMP) Results BMP Results: Sodium 134 mmol/L (136-145) L 09/06/21 Potassium 3.4 mmol/L (3.5-5.1) L 09/06/21 Chloride 104 mmol/L (98-107) 09/06/21 Carbon Dioxide 24 mmol/L (21-32) 09/06/21 Anion Gap 6 (3-11) 09/06/21 BUN 15 mg/dl (6-23) 09/06/21 Creatinine 1.18 mg/dl (0.6-1.4) 09/06/21 Glucose 115 mg/dl (70-99(Fasting)) H 09/06/21 Resident Activity Tracking Resident Involvement: Resident Care Provided Care Provided: Adult [facility] Medicine (1) CKD (chronic kidney disease), stage III Chronic kidney disease stage 3 subtype: stage 3a (GFR 45-59) Qualified Code(s): N18.31 - Chronic kidney disease, stage 3a (2) Hypothyroidism Hypothyroidism type: unspecified Qualified Code(s): E03.9 - Hypothyroidism, unspecified (3) Controlled type 2 diabetes mellitus, with long-term current use of insulin Diabetes mellitus complication status: without complication Qualified Code(s): E11.9 - Type 2 diabetes mellitus without complications; Z79.4 - exterminator termite (current) use of insulin (4) GERD (gastroesophageal reflux disease) Esophagitis presence: without esophagitis Qualified Code(s): K21.9 - Gastro- esophageal reflux disease without esophagitis (5) Hypertension Hypertension type: essential hypertension Qualified Code(s): I10 - Essential (primary) hypertension
[2021-09-06] MEDS ORDERED: POTASSIUM CHLORIDE / WTR 10 MEQ/100 ML PLCT IV ONE (10:30)
[2021-09-06] MEDS: metroNIDAZOLE 500 MG TAB PO SCH ×3 (11:03→22:08)
[2021-09-06] MEDS: cefTRIAXone SODIUM 1,000 MG in DEXTROSE 5% 50 ML IV SCH (11:47)
--- NOTE | 2021-09-06 13:51 | Anesthesiology Consultation ---
Date of Service September 06, 2021 Assessment & Plan Chart Review Chart Review: Acceptable Risk for Surgery and Patient NOT seen in Pre Admission Testing Consults Requested none ASA ASA4 Proposed Anesthesia Anesthesia Type: General History Surgery Operation Date: 09/06/21 08:00 Proposed Procedures p Endoscopic Retrograde Cholangiopancreatogram - Tiff Burgos MD Height/Weight Height: 5 ft 10 in Weight: 77.4 kg Allergies Allergy/AdvReac Type Severity Reaction Status Date / Time exenatide [From [place]] AdvReac Intermediate Diarrhea Verified 09/03/21 20:48 Medications Home Medications Medication Instructions Recorded Confirmed Last Taken biotin 10 mg tablet 10 mg PO QAM #30 tab 08/11/18 09/03/21 09/03/21 ferrous sulfate 325 mg (65 mg 325 mg PO BID #60 tab 08/11/18 09/03/21 09/03/21 08:00 iron) tablet (iron) cyanocobalamin (vitamin B-12) 1,000 mcg PO QAM 11/25/18 09/03/21 09/03/21 1,000 mcg capsule calcium carbonate 600 mg calcium 600 mg PO BID 12/25/18 09/03/21 09/03/21 08:00 (1,500 mg) tablet (Calcium) cholecalciferol (vitamin D3) 50 1,000 unit PO BID 12/25/18 09/03/21 09/03/21 mcg (2,000 unit) capsule (Vitamin D3) cannabidiol (CBD) extract 1 dose PO BID 01/09/19 09/03/21 09/03/21 08:00 acetaminophen 500 mg tablet 500 mg PO Q6H PRN 07/03/20 09/03/21 07/03/20 11:30 (Tylenol Extra Strength) 500 mg blood sugar diagnostic (OneTouch ea 02/10/21 04/07/21 Unknown Ultra Blue Test Strip) blood-glucose sensor (Dexcom G6 02/10/21 04/07/21 Unknown Sensor) bupropion HCl 150 mg tablet,12 hr 150 mg PO BID #180 tab 06/27/21 09/03/21 09/03/21 08:00 sustained-release furosemide 20 mg tablet 20 mg PO QAM #90 tab 06/27/21 09/03/21 09/03/21 levothyroxine 175 mcg tablet 175 mcg PO QAM #90 tab 06/27/21 09/03/21 09/03/21 metformin 1,000 mg tablet 1,000 mg PO BID #120 tab 06/27/21 09/03/21 09/03/21 08:00 omeprazole 40 mg capsule,delayed 40 mg PO BID #120 cap 06/27/21 09/03/21 09/03/21 08:00 release pen needle, diabetic 32 gauge x #100 ea 06/27/21 Unknown 07/24" simvastatin 20 mg tablet 20 mg PO DAILY #90 tab 06/27/21 09/03/21 09/03/21 spironolactone 50 mg tablet 50 mg PO QAM #90 tab 06/27/21 09/03/21 09/03/21 pen needle, diabetic 31 gauge x #100 ea 07/19/21 Unknown 07/24" (TRUEplus Pen Needle) escitalopram oxalate 10 mg tablet 10 mg PO DAILY #90 tab 08/08/21 09/03/21 09/03/21 insulin aspart U-100 100 unit/mL 0 unit SUBCUT DIRECTED 09/03/21 09/03/21 U nknown (3 mL) subcutaneous pen (Novolog Flexpen U-100 Insulin aspart) insulin glargine 100 unit/mL (3 15 unit SUBCUT QAM 09/03/21 09/03/21 09/03/21 mL) subcutaneous pen (Lantus Solostar U-100 Insulin) ondansetron 4 mg disintegrating See Rx Instructions .ROUTE 09/05/21 Unknown tablet .COMPLEX #30 tab Active Medications Generic Name Dose Route Start Last Admin Trade Name [place] PRN Reason Stop Dose Admin Bupropion HCl 150 mg 09/04/21 09:00 09/06/21 08:43 Bupropion Sr 150 Mg Tabcr PO 10/04/21 08:59 150 mg BID YENNI Administration Diphenhydramine HCl 25 mg 09/04/21 01:45 09/05/21 21:37 Diphenhydramine Capsule 25 Mg Cap PO 10/04/21 01:44 25 mg HS PRN Administration Insomnia Escitalopram Oxalate 10 mg 09/04/21 09:00 09/06/21 08:43 Escitalopram Oxalate 10 Mg Tab PO 10/04/21 08:59 10 mg DAILY YENNI Administration Ferrous Sulfate 325 mg 09/05/21 09:00 09/05/21 08:53 Ferrous Sulfate 325 Mg Tab PO 10/05/21 08:59 325 mg Q2D@0900 YENNI Administration Furosemide 20 mg 09/04/21 09:00 09/06/21 08:43 Furosemide 20 Mg Tab PO 10/04/21 08:59 20 mg QAM YENNI Administration Famotidine 20 mg/ Syringe 5 mls @ 2.5 mls/min 09/04/21 01:50 09/06/21 08:43 IV 10/04/21 01:49 2.5 mls/min BID YENNI Administration Pantoprazole Sodium 40 mg/ 10 mls @ 5 mls/min 09/04/21 01:50 09/06/21 08:43 Syringe IV 10/04/21 01:49 5 mls/min BID YENNI Administration Ceftriaxone Sodium 1,000 mg/ 60 mls @ 100 mls/hr 09/06/21 10:00 09/06/21 12:25 Dextrose IV 09/20/21 09:59 Infused Q24H YENNI Infusion Protocol Dextrose 1,000 mls @ 80 mls/hr 09/06/21 09:30 09/06/21 10:01 D5w IV 09/06/21 21:59 80 mls/hr .[id number] YENNI Administration Insulin Aspart 0 units 09/06/21 00:00 09/06/21 11:50 Insulin Aspart Per Unit SC 10/06/21 00:00 Not Given Q6H YENNI Levothyroxine Sodium 175 mcg 09/04/21 06:30 09/06/21 05:19 Levothyroxine Sodium 175 Mcg Tablet PO 10/04/21 06:29 Not Given DAILYBB YENNI Melatonin 3 mg 09/04/21 01:45 09/05/21 21:37 Melatonin 3 Mg Tab PO 10/04/21 01:44 3 mg HS PRN Administration Sleep Metronidazole 500 mg 09/06/21 09:00 09/06/21 13:01 Metronidazole 500 Mg Tab PO 09/20/21 08:59 500 mg TID YENNI Administration Ondansetron HCl 4 mg 09/04/21 01:45 09/04/21 09:13 Ondansetron Inj 2 Mg/Ml 2 Ml Vial IV 10/04/21 01:44 4 mg Q4H PRN Administration nausea Simvastatin 20 mg 09/04/21 09:00 09/06/21 08:43 Simvastatin 20 Mg Tab PO 10/04/21 08:59 20 mg DAILY YENNI Administration Spironolactone 50 mg 09/04/21 09:00 09/06/21 08:43 Spironolactone 25 Mg Tab PO 10/04/21 08:59 50 mg QAM YENNI Administration Past Medical History Medical History Anemia Cirrhosis of liver Depression DM type 2 (diabetes mellitus, type 2) IDDM Esophageal varices hx banding GERD (gastroesophageal reflux disease) GI bleed hx Gram-negative bacteremia History of ascites Hyperlipidemia Hypertension hx Hypothyroidism Peripheral neuropathy Post traumatic stress disorder Sepsis Exercise / Class Metabolic Activity III < 4 Walking/Shop/Light housework Past Family History Family History Mother Diabetes Grandmother No problems noted. Grandmother (Maternal) Diabetes Family/Other Heart disease Cancer Hypertension Other No family history of adverse response to anesthesia Denies family history of Ovarian cancer Prostate cancer Myocardial infarction Breast cancer Colorectal cancer Past Surgical History Surgical History History of abdominal paracentesis multiple (last 2 years ago) History of cholecystectomy History of colonoscopy History of ERCP History of esophagogastroduodenoscopy (EGD) History of herniorrhaphy WITH MESH-2018 History of surgery of liver Hepatic lobectomy (benign tumor) History of tooth extraction Hx of hand surgery RT HAND/ARM SURGERY (METAL PLATE D/T FX) Hx of vasectomy S/P debridement ABDOMINAL WOUND 2018 Past Anesthesia History No Hx of Anesthesia Complications and No Family Hx of Anesthesia Complications History of PONV No Hx of PONV and No Hx of Motion Sickness Social History Smoking Status: Former smoker tobacco type: cigarettes Smoking cigarettes per day: QUIT 35 YEARs ago Do You Dip or Chew Tobacco: No Hx Alcohol Use: No Hx Substance Use: No substance use type: does not use Substance Use Type Other:: CBD OIL 0.5 MG SUB BID Physical Exam Vital Signs Last Vital Signs Temp 36.7 C 09/06/21 12:06 Pulse 75 09/06/21 12:06 Resp 19 09/06/21 12:06 BP 112/73 09/06/21 12:06 Pulse Ox 99 09/06/21 12:06 Testing Laboratory Results 09/06/21 05:24 09/06/21 05:24 PT 11.9 Seconds (9.0-12.0) 09/03/21 20:21 INR 1.1 (0.9-1.1) 09/03/21 20:21 APTT 23.3 Seconds (21.0-31.0) 09/03/21 20:21 Urine Color Yellow 09/03/21 22:44 Urine Appearance Clear (Clear) 09/03/21 22:44 Urine pH 8.0 (4.5-7.5) H 09/03/21 22:44 Ur Specific [place] > 1.045 (1.000-1.030) H 09/03/21 22:44 Urine Protein Negative (Negative) 09/03/21 22:44 Urine Glucose (UA) Negative (Negative) 09/03/21 22:44 Urine Ketones Negative (Negative) 09/03/21 22:44 Urine Nitrite Negative (Negative) 09/03/21 22:44 Ur Leukocyte Esterase Negative (Negative) 09/03/21 22:44 09/03/21 20:35 Aerobic Blood Culture - Final Blood Escherichia coli Klebsiella oxytoca Anaerobic Blood Culture - Final Escherichia coli 09/03/21 20:21 Aerobic Blood Culture - Final Blood Escherichia coli Anaerobic Blood Culture - Final Escherichia coli 09/06/21 09/06/21 09/06/21 11:43 07:44 05:16 POC Glucose 89 96 113 H Electrocardiogram Date: 09/03/21 Findings: + ST @ (@ 119;;poor R wave progression) Chest X-Ray Date: 09/03/21 Findings: + NAD Stress Test Date: 12/17/11 Type: exercise Findings: + WNL and + achieved max HR; no EKG changes or no ischemia Resting LV Function: normal Resting RWMA: + none Valvular Disease: no significant valvular disease
--- NOTE | 2021-09-06 14:23 | History & Physical Bridge Note ---
Date of Service September 06, 2021 History & Physical Bridge Note I have examined the patient, reviewed the History & Physical and in the interval since the performance of the History & Physical I have noted the following changes of clinical significance: no changes noted ERCP today Patient was explained in detail regarding risks, benefits, limitations and alternatives of the above endoscopic procedure. Risks of intravenous sedation used for procedure were also explained. Risks include, but not limited to perfor ation, bleeding, infection, respiratory distress, cardiac arrest and . Patient is also aware about the possibility of missed lesion. Patient's questions were answered. The patient verbalized understanding the information and agreed to undergo the procedure.
[2021-09-06] MEDS ORDERED: ePHEDrine sulfate 50 MG/ML AMP IV PRN (17:12)
[2021-09-06] MEDS ORDERED: ATROPINE SULFATE 0.1 MG/ML 10ML SYR IV PRN (17:12)
[2021-09-06] MEDS ORDERED: ONDANSETRON INJ 2 MG/ML 2 ML VIAL IV PRN (17:12)
[2021-09-06] MEDS ORDERED: fentaNYL citrate 100 MCG/2 ML VIAL IV PRN (17:12)
[2021-09-06] MEDS ORDERED: fentaNYL citrate 100 MCG/2 ML VIAL ONE (17:18)
[2021-09-06] MEDS ORDERED: MIDAZOLAM HCL 1 MG/ML 2ML VIAL ONE (17:18)
[2021-09-06] MEDS ORDERED: SUCCINYLCHOLINE CHLORIDE 20 MG/ML 10 ML VIAL IV ONE (17:37)
[2021-09-06] MEDS ORDERED: LIDOCAINE 2% 2 ML VIAL/AMP(20MG/ML) INFIL ONE (17:37)
[2021-09-06] MEDS ORDERED: ONDANSETRON INJ 2 MG/ML 2 ML VIAL ONE (17:37)
[2021-09-06] MEDS ORDERED: LARYING-O-JET KIT (LTA) ONE (17:37)
[2021-09-06] MEDS ORDERED: PROPOFOL IV EMULSION 10 MG/ML 20 ML VIAL IV ONE (17:37)
[2021-09-06] MEDS ORDERED: ENDOSCOPIC MARKER 5 ML SYR TOP ONE (17:47)
--- NOTE | 2021-09-06 18:17 | Operative Report ---
Post Operative Report Pre & Post Diagnosis Operation Date: 09/06/21 08:00 Pre-Op Diagnosis: biliary obstruction Post-Op Diagnosis: biliary obstruction I identified the patient and participated in the time-out.: Yes Procedure Operation Date: 09/06/21 08:00 Actual Procedures p Endoscopic Retrograde Cholangiopancreatogram(Not Applicable) - Tiff Burgos MD Surgeon Tiff Burgos MD Content Creation Manager None Estimated Blood Loss 0 Findings See Below (Hepaticojejunostomy stenosis, dilated.) Specimens None Description of Procedure ERCP I attest to the content of the Intraoperative Record and any orders documented therein. Any exceptions are noted below.
--- NOTE | 2021-09-06 18:36 | Fluoroscopy Report ---
[place] ERCP biliary ductal HISTORY: 65 years-old Male IN OR follow-up study in a patient with a common bile duct stent COMPARISON: Head CT 09/03/2021 TECHNIQUE: 15 spot fluoroscopic images of the abdomen were obtained utilizing 88.1 seconds fluoroscop y time FINDINGS: Cannulation of the common bile duct is noted with retrograde injection of contrast. There is mild irr egularity of the biliary tree with areas of mild narrowing and perhaps only minimal dilation. Common bile duct stent. Surgical clips of the abdominal right upper quadrant. Contrast extends into the duod enum. Metallic density coil also projects over the abdominal right upper quadrant. IMPRESSION: Fluoroscopic assistance as above. ACT 112: Negative or not required by law. The above report was generated using voice recognition software. It may contain grammatical, syntax o r spelling errors. Electronically signed by: Sujit Velarde M.D. 09/06/2021 6:34 PM
--- NOTE | 2021-09-06 18:39 | GI REPORT ---
Patient Name: Aaron Pryor Procedure Date: 09/06/2021 5:20 PM Date of : 1955 Admit Type: Inpatient Age: 65 Gender: Male Attending MD: Tiff Burgos MD Procedure: ERCP Providers: Tiff Burgos MD Referring MD: Kerry Nicole Indications: Biliary dilation on Computed Tomogram Scan, Suspected ascending cholangitis Medicines: General Anesthesia Complications: No immediate complications. Estimated Blood Loss: Estimated blood loss: none. Procedure: Pre-Anesthesia Assessment: - Prior to the procedure, a History and Physical was performed, and patient medications, allergies and sensitivities were reviewed. The patient's tolerance of previous anesthesia was reviewed. - The risks and benefits of the procedure and the sedation options and risks were discussed with the patient. All questions were answered and informed consent was obtained. - Patient identification and proposed procedure were verified prior to the procedure by the physician and the nurse. The procedure was verified in the procedure room. - Pre-procedure physical examination revealed no contraindications to sedation. After obtaining informed consent, the scope was passed under direct vision. Throughout the procedure, the patient's blood pressure, pulse, and oxygen saturations were monitored continuously. The Colonoscope was introduced through the mouth, and advanced to the duodenum and used to inject contrast into the bile duct. The ERCP was accomplished without difficulty. The patient tolerated the procedure well. Findings: A plastic extruding machine operator film of the abdomen was obtained. Surgical clips were seen in the area of the right upper quadrant of the abdomen. Metal bilary stent seen in RUQ. The esophagus was successfully intubated under direct vision. The scope was advanced both afferent an efferent limbs. A pediatrics colonoscope was used for the examination of the upper gastrointestinal tract. The scope was passed under direct vision through the upper GI tract. Grade II varices were found in the lower third of the esophagus. Mild portal hypertensive gastropathy was found in the stomach. The duodenal bulb and second portion of the duodenum were normal. A previously placed metal biliary stent was seen at the major papilla. There was evidence of a widely patent jejunojejunostomy. Both afferent and efferent limbs were examined. A hepaticojejunostomy in the jejunum was found. This was characterized by moderate stenosis. The afferent limb was successfully injected with 3 mL Antonette ink through the scope for tattooing. A 0.035 inch straight standard wire was passed into the biliary tree. The 8.5 mm balloon was passed over the guidewire and the bile duct was then deeply cannulated. Contrast was injected. I personally interpreted the bile duct images. Ductal flow of contrast was adequate. Image quality was adequate. Contrast extended to the left hepatic ducts. Opacification of the left intrahepatic branches was successful. The maximum diameter of the ducts was 6 mm. The anastomosis contained a single mild stenosis. The hepaticojejunostomy was successfully dilated with a 4 mm balloon dilator. To discover objects, the biliary tree was swept with a 12 mm balloon starting at the left main hepatic duct. Sludge was swept from the duct. One retained/ buried uncovered metal biliary stent originating in the blind/remnant common bile duct was emerging from the major papilla with extensive tissue ingrowth. The stent was visibly occluded. Impression: - Grade II esophageal varices. - Portal hypertensive gastropathy. - Normal duodenal bulb and second portion of the duodenum. - Retained metal biliary stent in the remnant blind common bile duct post hepaticojejunostomy and right hepatectomy surgery. - Mild hepaticojejunostomy stenosis treated by balloon dilation with excellent drainage post dilation. Recommendation: - [facility] care. - Recall GI if needed. Tiff Burgos MD 09/06/2021 6:39:03 PM This report has been signed electronically. Note Initiated On: 09/06/2021 5:20 PM Number of Addenda: 0 I attest to the content of the Intraoperative Record and orders documented therein, exceptions below {[id number]}
--- NOTE | 2021-09-06 19:04 | Anesthesiology Progress Note ---
Date of Service September 06, 2021 Anesthesia Post Procedure Vital Signs Vital Signs: Temp Pulse Pulse Pulse Resp BP Pulse Ox 09/06/21 19:00 97.7 F 78 20 109/68 94 09/06/21 18:50 79 20 110/69 94 09/06/21 18:40 81 21 118/79 94 09/06/21 18:30 83 20 125/80 95 09/06/21 18:23 97.0 F L 86 16 123/91 93 09/06/21 16:00 75 09/06/21 15:40 99.3 F 74 18 103/68 98 09/06/21 12:06 98.1 F 75 19 112/73 99 09/06/21 08:11 98.2 F 73 18 95/59 L 92 09/06/21 04:15 98.2 F 86 20 106/69 92 09/06/21 00:17 98.6 F 79 18 113/76 92 09/05/21 23:59 82 09/05/21 20:05 98.1 F 81 20 97/68 L 99 Transfer of Care Handoff Completed per policy Notes Mental Status: alert / awake / arousable and participated in evaluation Patient Amnestic to Procedure: Yes Nausea / Vomiting: adequately controlled Pain: adequately controlled Airway Patency, RR, SpO2: stable & adequate BP & HR: stable & adequate Hydration State: stable & adequate Anesthetic Complications: no major complications apparent and Pt Satisfied with anesthetic care
[2021-09-06] MEDS: diphenhydrAMINE Capsule 25 MG CAP PO PRN (22:07)
[2021-09-06] MEDS: MELATONIN 3 MG TAB PO PRN (22:07)
[2021-09-07 05:54] LABS: Basophils # (auto) 0.02 K/uL (0-0.2); Basophils % (auto) 0.3 %; Eosinophils # (auto) 0.26 K/uL (0-0.5); Eosinophils % (auto) 3.8 %; Hematocrit (blood only) 36.6 % (42-52); Hemoglobin 12.6 g/dL (14.0-18.0); Immature Granulocytes # (auto) 0.01 K/uL (0.00-0.02); Immature Granulocytes % (auto) 0.1 %; Lymphocytes % (auto) 11.7 %; Mean Corpuscular Hemoglobin 34.6 pg (25-34); Mean Corpuscular Hgb Conc 34.4 g/dL (32-36); Mean Corpuscular Volume 100.5 fL (80-100); Mean Platelet Volume 10.4 fL (7.4-10.4); Monocytes # (auto) 1.11 K/uL (0.11-0.59); Monocytes % (auto) 16.2 %; Neutrophils # (auto) 4.66 K/uL (1.4-6.5); Neutrophils % (auto) 67.9 %; Platelet Count 162 K/uL (130-400); RDW Coefficient of Variation 15.4 % (11.5-14.5); RDW Standard Deviation 56.7 fL (36.4-46.3); Red Blood Count 3.64 M/uL (4.7-6.1); White Blood Count 6.86 K/uL (4.8-10.8)
[2021-09-07 06:19] LABS: Albumin Globulin Ratio 0.8 (0.9-2); Albumin Level 2.9 gm/dl (3.4-5.0); BUN Creatinine Ratio 10.1 (10-20); Bilirubin,Total 5.4 mg/dl (0.2-1.0); Calcium 8.4 mg/dl (8.5-10.1); Creatinine Clr Calc Pharmacy 70.7 ml/min; Est GFR (African American) 82.7 ml/min; Est GFR (Non-African American) 71.4 ml/min; Globulin 3.5 gm/dl (2.5-4.0); Potassium 3.4 mmol/L (3.5-5.1); Total Protein 6.4 gm/dl (6.0-8.3)
[2021-09-07] MEDS: LEVOTHYROXINE SODIUM 175 MCG TABLET PO SCH (06:26)
[2021-09-07] MEDS: SIMVASTATIN 20 MG TAB PO SCH (09:00)
[2021-09-07] MEDS: buPROPion SR 150 MG TABCR PO SCH (09:00)
[2021-09-07] MEDS: FUROSEMIDE 20 MG TAB PO SCH (09:00)
[2021-09-07] MEDS: metroNIDAZOLE 500 MG TAB PO SCH (09:00)
[2021-09-07] MEDS: ESCITALOPRAM OXALATE 10 MG TAB PO SCH (09:00)
[2021-09-07] MEDS: SPIRONOLACTONE 25 MG TAB PO SCH (09:00)
[2021-09-07] MEDS: FERROUS SULFATE 325 MG TAB PO SCH (09:00)
[2021-09-07] MEDS: PANTOprazole 40 MG in SYRINGE 0 ML IV SCH (09:00)
[2021-09-07] MEDS: INSULIN ASPART PER UNIT SC SCH ×3 (09:02→17:18)
[2021-09-07] MEDS: FAMOTIDINE 20 MG in SYRINGE 3 ML IV SCH (09:06)
[2021-09-07] MEDS: cefTRIAXone SODIUM 1,000 MG in DEXTROSE 5% 50 ML IV SCH (10:11)
--- NOTE | 2021-09-07 10:25 | Hospitalist Progress Note ---
Date of Service September 07, 2021 Assessment & Plan (1) Fever: Plan: 65 yo M w/ pMHx. of cirrhosis, CKD3, IDDM2, HTN, HLD, esophageal varices s/p banding, hypothyroidism, and portal hypertension presents with a one-day history of fever, rigors, nausea, and vomiting. Sepsis with Bacteremia Patient febrile on admission 38.4, tachycardic to 129 (has since improved to mid-100s), vitals otherwise stable Received NSS 1L bolus x3 in ED CT a/p:cirrhosis and sign of Portal HTN - blood PCR = gram negative bacilli e coli and enterobacteria - started Zosyn Vanc in ED, switched to Ceftriaxone and metronidazole - ID consulted, if susceptible, may switch to oral medication Augmentin for total 10 days (end 09/12) - WBC 13.55 --> 6.86 trend cbc Transaminitis, hyperbilirubinemia in the setting of cirrhosis Found on admission, patient has a history of both hyperbilirubinemia and transaminitis, likely secondary to known cirrhosis Patient follows with GI at [facility] (on liver transplant list) - pt requests records to be sent to baggage checker [facility] ([place]) (fax [phone]) GI consulted, plan for ERCP - AST and ALT up trending, continue to monitor Trend daily CMP Hyponatremia -resolved Sodium on admission 133, possibly secondary to poor PO intake and vomiting --> recheck 136 received 4L NSS Trend daily BMP Hypomagnesemia Magnesium 1.4 on admission Received mag. sulfate 1g IV x1 in ED Recheck Mg 2 mg. GERD Continue home omeprazole, will add famotidine 20mg IV bid IDDM2 HbA1c 6.0% (07/05/21) Patient's home regimen held on admission Continue BSG checks, sliding-scale insulin, hypoglycemic protocol CKD3 Creatinine on admission 1.16 (baseline 1.0-1.2) received 4L NSS Trend daily BMP GERD: continue home omeprazole HLD: continue home simvastatin HTN: BP well-controlled on admission, continue home regimen Hypothyroidism: continue home levothyroxine 175mcg PO qAM MDD: continue home bupropion FEN: Full liquid diet Code status: full code DVT ppx: SCDs Held home meds: metformin, aspart, glargine, CBD Consults: gastroenterology, ID PT/OT: ordered Dispo: med/telemetry (2) Cirrhosis: (3) CKD (chronic kidney disease), stage III: (4) Controlled type 2 diabetes mellitus, with long-term current use of insulin: (5) GERD (gastroesophageal reflux disease): (6) Hypertension: (7) Hyperlipidemia: (8) Hypothyroidism: (9) Portal hypertension: Admission and Anticipated Discharge Date Admission Date: September 06, 2021 Subjective Patient seen at bedside, calm comfortable cooperative. He denies any pain fever chills SOB. Patient has concerns of his LFT levels, wonders if he will need to go to [facility] if they continue to increase. Patient understands his ERCP procedure went well, they dilated his biliary stricture, this may cause transient elevation in LFT. Review of Systems Review of Systems: Negative fever chills Negative headache dizziness Negative chest pain palpitations SOB Negative nausea vomitting diarrhea constipation Negative numbness tingling rash swelling Physical Exam Constitutional: well developed, well nourished and cooperative Eyes: PERRL, conjunctivae normal, anicteric sclerae ENMT: external ear and nose normal, oropharynx normal Neck: trachea midline, no thyromegaly Respiratory: normal respiratory effort, lungs clear to auscultation Cardiovascular: RRR, no murmur, no edema Chest (Breasts): Chest: normal inspection of chest Gastrointestinal (Abdomen): Inspection/Auscultation: abdomen normal to inspection Percussion/Palpation: abdomen soft; abdomen nontender Skin: no rashes, warm and dry Neurologic: CN's II-XI intact bilaterally Psychiatric: A+Ox3, euthymic affect Results & Data Results & Data ([facility]) Vital Signs (Past 12 Hours) Vital Signs Temp Pulse Pulse Resp BP BP Pulse Ox 09/07/21 08:08 36.6 C 70 18 100/63 99 09/07/21 08:04 70 09/07/21 03:45 36.8 C 72 20 93/54 L 96 09/06/21 23:59 74 09/06/21 23:48 36.9 C 79 20 93/57 L 95 Diagnostic Findings Laboratory Results WBC 6.86 K/uL (4.8-10.8) 09/07/21 05:31 RBC 3.64 M/uL (4.7-6.1) L 09/07/21 05:31 Hgb 12.6 g/dL (14.0-18.0) L 09/07/21 05:31 Hct 36.6 % (42-52) L 09/07/21 05:31 MCV 100.5 fL (80-100) H 09/07/21 05:31 MCH 34.6 pg (25-34) H 09/07/21 05:31 MCHC 34.4 g/dL (32-36) 09/07/21 05:31 RDW Std Deviation 56.7 fL (36.4-46.3) H 09/07/21 05:31 RDW Coeff of Debby 15.4 % (11.5-14.5) H 09/07/21 05:31 Plt Count 162 K/uL (130-400) 09/07/21 05:31 MPV 10.4 fL (7.4-10.4) 09/07/21 05:31 Immature Gran % (Auto) 0.1 % 09/07/21 05:31 Neut % (Auto) 67.9 % 09/07/21 05:31 Lymph % (Auto) 11.7 % 09/07/21 05:31 [place] % (Auto) 16.2 % 09/07/21 05:31 Eos % (Auto) 3.8 % 09/07/21 05:31 Baso % (Auto) 0.3 % 09/07/21 05:31 Neut # (Auto) 4.66 K/uL (1.4-6.5) 09/07/21 05:31 Lymph # (Auto) 0.80 K/uL (1.2-3.4) L 09/07/21 05:31 [place] # (Auto) 1.11 K/uL (0.11-0.59) H 09/07/21 05:31 Eos # (Auto) 0.26 K/uL (0-0.5) 09/07/21 05:31 Baso # (Auto) 0.02 K/uL (0-0.2) 09/07/21 05:31 Immature Gran # (Auto) 0.01 K/uL (0.00-0.02) 09/07/21 05:31 PT 11.9 Seconds (9.0-12.0) 09/03/21 20:21 INR 1.1 (0.9-1.1) 09/03/21 20:21 APTT 23.3 Seconds (21.0-31.0) 09/03/21 20:21 PTT Ratio 0.8 09/03/21 20:21 Sodium 136 mmol/L (136-145) 09/07/21 05:31 Potassium 3.4 mmol/L (3.5-5.1) L 09/07/21 05:31 Chloride 105 mmol/L (98-107) 09/07/21 05:31 Carbon Dioxide 25 mmol/L (21-32) 09/07/21 05:31 Anion Gap 6 (3-11) 09/07/21 05:31 BUN 11 mg/dl (6-23) 09/07/21 05:31 Creatinine 1.09 mg/dl (0.6-1.4) 09/07/21 05:31 Est Cr Clr Drug Dosing 70.7 ml/min 09/07/21 05:31 Est GFR ( Amer) 82.7 ml/min 09/07/21 05:31 Est GFR (Non-Af Amer) 71.4 ml/min 09/07/21 05:31 BUN/Creatinine Ratio 10.1 (10-20) 09/07/21 05:31 Glucose 81 mg/dl (70-99(Fasting)) 09/07/21 05:31 POC Glucose 110 mg/dl (70-99) H 09/07/21 11:29 Lactate 2.0 mmol/L (0.4-2.0) 09/04/21 07:03 Calcium 8.4 mg/dl (8.5-10.1) L 09/07/21 05:31 Phosphorus 3.0 mg/dl (2.5-4.9) 09/04/21 07:03 Magnesium 2.0 mg/dl (1.7-2.4) 09/04/21 07:03 Total Bilirubin 5.4 mg/dl (0.2-1.0) H 09/07/21 05:31 AST 106 U/L (13-39) H 09/07/21 05:31 ALT 77 U/L (7-52) H 09/07/21 05:31 Alkaline Phosphatase 150 U/L (34-104) H 09/07/21 05:31 Troponin I High Sens 11.3 pg/ml (0-20) 09/03/21 20:21 Total Protein 6.4 gm/dl (6.0-8.3) 09/07/21 05:31 Albumin 2.9 gm/dl (3.4-5.0) L 09/07/21 05:31 Globulin 3.5 gm/dl (2.5-4.0) 09/07/21 05:31 Albumin/Globulin Ratio 0.8 (0.9-2) L 09/07/21 05:31 Procalcitonin 0.29 ng/ml (0-0.5) 09/03/21 20:21 TSH 0.371 uIu/ml (0.300-4.500) 09/04/21 07:03 Urine Color Yellow 09/03/21 22:44 Urine Appearance Clear (Clear) 09/03/21 22:44 Urine pH 8.0 (4.5-7.5) H 09/03/21 22:44 Ur Specific Fonda > 1.045 (1.000-1.030) H 09/03/21 22:44 Urine Protein Negative (Negative) 09/03/21 22:44 Urine Glucose (UA) Negative (Negative) 09/03/21 22:44 Urine Ketones Negative (Negative) 09/03/21 22:44 Urine Blood Negative (Negative) 09/03/21 22:44 Urine Nitrite Negative (Negative) 09/03/21 22:44 Urine Bilirubin Negative (Negative) 09/03/21 22:44 Urine Urobilinogen Positive (Negative) H 09/03/21 22:44 Ur Leukocyte Esterase Negative (Negative) 09/03/21 22:44 Nasal Screen MRSA (PCR) Negative (Negative) 09/04/21 02:45 Stl C. cayetanensis PCR Not Detected (NotDetected) 09/05/21 09:42 Stool Rotavirus A PCR Not Detected (NotDetected) 09/05/21 09:42 Stl Adenov F 40/41 PCR Not Detected (NotDetected) 09/05/21 09:42 Stool Astrovirus (PCR) Not Detected (NotDetected) 09/05/21 09:42 Stool Campylobacter PCR Not Detected (NotDetected) 09/05/21 09:42 Stl C. diff Tox A/B PCR Not Detected (NotDetected) 09/05/21 09:42 Stool Cryptosporidium PCR Not Detected (NotDetected) 09/05/21 09:42 Stl E.coli Shiga Tox PCR Not Detected (NotDetected) 09/05/21 09:42 Stl Enterotoxigenic E PCR Not Detected (NotDetected) 09/05/21 09:42 Stool EPEC (PCR) Not Detected (NotDetected) 09/05/21 09:42 Stool EAEC (PCR) Not Detected (NotDetected) 09/05/21 09:42 Stl E. histolytica PCR Not Detected (NotDetected) 09/05/21 09:42 Stool Giardia Lamblia PCR Not Detected (NotDetected) 09/05/21 09:42 Stool Salmonella PCR Not Detected (NotDetected) 09/05/21 09:42 Stool Sapovirus (PCR) Not Detected (NotDetected) 09/05/21 09:42 Stl P. shigelloides PCR Not Detected (NotDetected) 09/05/21 09:42 Stl Shigella/EIEC PCR Not Detected (NotDetected) 09/05/21 09:42 St Y.enterocolitica PCR Not Detected (NotDetected) 09/05/21 09:42 Stool Vibrio (PCR) Not Detected (NotDetected) 09/05/21 09:42 Stl Vibrio cholerae PCR Not Detected (NotDetected) 09/05/21 09:42 Stl Norovirus GI/GII PCR Not Detected (NotDetected) 09/05/21 09:42 SARS-CoV-2 (PCR) NEGATIVE (Negative) 09/03/21 20:21 Enterobacterales (PCR) DETECTED (NotDetected) A 09/03/21 21:26 E. coli (PCR) DETECTED (NotDetected) A 09/03/21 21:26 Influenza Type A (PCR) Negative (Neg) 09/03/21 20:21 Influenza Type B (PCR) Negative (Neg) 09/03/21 20:21 RSV (RT-PCR) Negative (Neg) 09/03/21 20:21 mcr-1 Colistin Res Gene PCR Not Detected (NotDetected) 09/03/21 21:26 blaIMP Car res Gene PCR Not Detected (NotDetected) 09/03/21 21:26 KPC-Carbap Res Gene PCR Not Detected (NotDetected) 09/03/21 21:26 blaNDM Car Res Gene PCR Not Detected (NotDetected) 09/03/21 21:26 OXA-48 Carbapenem Resis Gene (PCR) Not Detected (NotDetected) 09/03/21 21:26 blaVIM Car Res Gene PCR Not Detected (NotDetected) 09/03/21 21:26 CTX-M Gene Resistance (PCR) Not Detected (NotDetected) 09/03/21 21:26 Bld Cult ID Panel PCR See PCR Comment (NotDetected) 09/03/21 21:26 Impressions Abdomen/Pelvis CT 09/03/21 20:[address] WITH IV CONTRAST CT DOSE: 491.27 mGy.cm HISTORY: Acute fever. History of cirrhosis with right hepatic lobe resection. fever TECHNIQUE: Multiaxial CT images of the abdomen and pelvis were performed following the IV administration of 94 cc of Optiray, A dose lowering technique was utilized adhering to the principles of ALARA. COMPARISON STUDY: MRI of the abdomen 07/25/2021, CT abdomen 07/03/2020 FINDINGS: Gynecomastia. Calcified granuloma of the basal right lower lobe. Thin- walled cyst of the basal left lower lobe. Mild scarring versus atelectasis within the right middle lobe. There is no pneumatosis or pneumoperitoneum. Calcified granulomata of the spleen. Mild to moderate generalized pancreatic atrophy. Unremarkable adrenal glands. Cholecystectomy. Cirrhotic liver disease with prior right hepatic lobe resection. Stable appearing 2.6 cm hypodense focus of the right hepatic lobe is likely benign. There is mild intrahepatic biliary ductal prominence. A debris-filled common bile duct stent. Patency of the portal vein. Unremarkable kidneys. There is no hydronephrosis. Unremarkable prostate. Mild nonspecific urinary bladder wall thickening. Atherosclerosis of the aorta without aneurysm. Surgical clips of the bilateral inguinal canals. Unchanged scattered adenopathy of the lower chest and abdomen includes a stable 1.5 x 2.0 cm periaortic lymph node on image 169. Unchanged 2.8 x 1.3 cm gastrohepatic lymph node. Abdominal collateral vessels with diffuse mesenteric edema and small volume of abdominal pelvic ascites. No bowel obstruction. Moderate colonic fecal retention. There is moderate wall thickening of the colon which is most pronounced in the ascending and transverse segments. Multifocal small bowel wall thickening is noted with scattered air-fluid levels. Small bowel anastomosis of the left midabdomen. Postoperative changes of the anterior abdominal wall. Degenerative changes of the spine, pelvis and hips. IMPRESSION: 1. Cirrhotic liver disease with prior right hepatic lobe resection. 2. Stigmata of portal venous hypertension with small volume of abdominal pelvic ascites. 3. Mild intrahepatic biliary ductal prominence with common bile duct stent in place. 4. Multifocal large and small bowel wall thickening is likely secondary to the portal venous hypertension. A nonspecific infectious or inflammatory enterocolitis could appear similarly. 5. No bowel obstruction. ACT 112: Negative or not required by law. The above report was generated using voice recognition software. It may contain grammatical, syntax or spelling errors. Electronically signed by: Sujit Velarde M.D. 09/04/2021 8:46 AM Chest X-Ray 09/03/21 20:10 XR chest 1V portable CLINICAL HISTORY: SEPSIS COMPARISON STUDY: Chest radiograph July 03, 2020. FINDINGS: Lung volumes are normal. Calcified granuloma within the right lower lung is noted as well as calcified right hilar lymph nodes. There is no pneumothorax or pleural effusion. Cardiac size is normal. Mediastinal contours are normal. There is no evidence for pulmonary edema. IMPRESSION: No acute cardiopulmonary findings. No change in appearance of the chest. ACT 112: Negative or not required by law. Electronically signed by: Jalil Abraham M.D. 09/04/2021 7:50 AM Medications Administered Current Inpatient Medications Bupropion HCl (Bupropion Sr 150 Mg Tabcr) 150 mg PO BID YENNI Stop: 10/04/21 08:59 Last Admin: 09/07/21 09:00 Dose: 150 mg Documented by: Dextrose (Dextrose 50% 50 Ml Syringe) 25 - 50 ml IV UD PRN; Protocol PRN Reason: Hypoglycemia Protocol Stop: 10/04/21 01:44 Diphenhydramine HCl (Diphenhydramine Capsule 25 Mg Cap) 25 mg PO HS PRN PRN Reason: Insomnia Stop: 10/04/21 01:44 Last Admin: 09/06/21 22:07 Dose: 25 mg Documented by: Escitalopram Oxalate (Escitalopram Oxalate 10 Mg Tab) 10 mg PO DAILY YENNI Stop: 10/04/21 08:59 Last Admin: 09/07/21 09:00 Dose: 10 mg Documented by: Ferrous Sulfate (Ferrous Sulfate 325 Mg Tab) 325 mg PO Q2D@0900 [facility] Stop: 10/05/21 08:59 Last Admin: 09/07/21 09:00 Dose: 325 mg Documented by: Furosemide (Furosemide 20 Mg Tab) 20 mg PO QAM [facility] Stop: 10/04/21 08:59 Last Admin: 09/07/21 09:00 Dose: 20 mg Documented by: Glucagon (Glucagon For Inj 1 Mg Vial) 1 mg SQ UD PRN; Protocol PRN Reason: Hypoglycemia Protocol Stop: 10/04/21 01:44 Glucose (Glucose 10 Tabs/Tube) 4 - 8 tabs PO UD PRN; Protocol PRN Reason: Hypoglycemia Protocol Stop: 10/04/21 01:44 Glucose (Glucose 40% Gel 15 Gm Tube) 15 - 30 gm PO UD PRN; Protocol PRN Reason: Hypoglycemia Protocol Stop: 10/04/21 01:44 Famotidine 20 mg/ Syringe 5 mls @ 2.5 mls/min IV BID YENNI Stop: 10/04/21 01:49 Last Admin: 09/07/21 09:06 Dose: 2.5 mls/min Documented by: Pantoprazole Sodium 40 mg/ (Syringe) 10 mls @ 5 mls/min IV BID [facility] Stop: 10/04/21 01:49 Last Admin: 09/07/21 09:00 Dose: 5 mls/min Documented by: Ceftriaxone Sodium 1,000 mg/ (Dextrose) 60 mls @ 100 mls/hr IV Q24H [facility]; Protocol Stop: 09/20/21 09:59 Last Infusion: 09/07/21 11:38 Dose: Infused Documented by: Ibuprofen (Ibuprofen 200 Mg Tab) 400 mg PO QID PRN PRN Reason: Fever Stop: 10/05/21 09:14 Insulin Aspart (Insulin Aspart Per Unit) 0 units SC ACHS [facility] Stop: 10/06/21 20:59 Last Admin: 09/07/21 12:43 Dose: 3 units Documented by: Levothyroxine Sodium (Levothyroxine Sodium 175 Mcg Tablet) 175 mcg PO DAILYBB [facility] Stop: 10/04/21 06:29 Last Admin: 09/07/21 06:26 Dose: 175 mcg Documented by: Melatonin (Melatonin 3 Mg Tab) 3 mg PO HS PRN PRN Reason: Sleep Stop: 10/04/21 01:44 Last Admin: 09/06/21 22:07 Dose: 3 mg Documented by: Miscellaneous (Carbohydrates For Hypoglycemia ) 15 - 30 gm PO UD PRN PRN Reason: Hypoglycemia Protocol Stop: 10/04/21 01:44 Ondansetron HCl (Ondansetron Inj 2 Mg/Ml 2 Ml Vial) 4 mg IV Q4H PRN PRN Reason: nausea Stop: 10/04/21 01:44 Last Admin: 09/04/21 09:13 Dose: 4 mg Documented by: Simvastatin (Simvastatin 20 Mg Tab) 20 mg PO DAILY [facility] Stop: 10/04/21 08:59 Last Admin: 09/07/21 09:00 Dose: 20 mg Documented by: Spironolactone (Spironolactone 25 Mg Tab) 50 mg PO QAM [facility] Stop: 10/04/21 08:59 Last Admin: 09/07/21 09:00 Dose: 50 mg Documented by: Resident Activity Tracking Resident Involvement: Resident Care Provided Care Provided: Adult [facility] Medicine (1) CKD (chronic kidney disease), stage III Chronic kidney disease stage 3 subtype: stage 3a (GFR 45-59) Qualified Code(s): N18.31 - Chronic kidney disease, stage 3a (2) Hypothyroidism Hypothyroidism type: unspecified Qualified Code(s): E03.9 - Hypothyroidism, unspecified (3) Controlled type 2 diabetes mellitus, with long-term current use of insulin Diabetes mellitus complication status: without complication Qualified Code(s): E11.9 - Type 2 diabetes mellitus without complications; Z79.4 - retirement (current) use of insulin (4) GERD (gastroesophageal reflux disease) Esophagitis presence: without esophagitis Qualified Code(s): K21.9 - Gastro-esophageal reflux disease without esophagitis (5) Hypertension Hypertension type: essential hypertension Qualified Code(s): I10 - Essential (primary) hypertension
--- NOTE | 2021-09-07 10:45 | Gastroenterology Progress Note ---
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 S/p ERCP yesterday as above, had mild stenosis of the hepatojejunostomy that was dilated with balloon. Today has no complaints; no further fever. On exam abd soft, nontender. He's afebrile, VSS, no leukocytosis. - LFTs/bili bumped slightly above baseline. This is not unexpected post- procedure. Would follow LFTs; they may take some time to trend back to baseline. If they remain as is, may be reflective of his cirrhosis. He will follow-up with his specialists at - Diet as tolerated per primary service; diabetic diet - ABX as per primary/ID teams - Trend daily MELD labs, CBC, INR - Supportive care for other co-morbids as per primary teams - GI will sign off, please call with questions Thank you for allowing us to participate in the care of this patient. Please call with any acute changes, questions or concerns. Please see addendum below with additional recommendation from my supervising physician. Admission and Anticipated Discharge Date Admission Date: September 06, 2021 Supervising Physician Co-Signing Physician Notes I performed a history and physical examination of the patient today, including specifically on physical exam - soft abdomen. I have discussed the patient's management with the advanced practitioner. Please refer to the nurse practitioner's note for the documented findings and plan of care. Hepaticojejunostomy dilated. LFTs may not improve due to underlying cirrhosis Recall GI if needed. Subjective Patient seen and examined, chart reviewed. No acute events overnight. Tolerated clears; advancing to regular diet. He feels hungry. Denies abd pain, n/v. Has a few small loose stools daily; no significant diarrhea. No melena, hematochezia, fever, chills, CP, SOB. Review of Systems Review of Systems: All systems reviewed & are unremarkable except as noted in HPI & below Physical Exam Constitutional: WD/WN, vitals as above Eyes: PERRL, conjunctivae normal, anicteric sclerae Respiratory: normal respiratory effort, lungs clear to auscultation Cardiovascular: RRR, no murmur, no edema Gastrointestinal (Abdomen): normal bowel sounds, soft, nontender, no hepatosplenomegaly Skin: no rashes, warm and dry Psychiatric: A+Ox3, euthymic affect Results & Data ([facility]) Vital Signs (Past 12 Hours) Vital Signs Temp Pulse Pulse Resp BP BP Pulse Ox 09/07/21 08:08 36.6 C 70 18 100/63 99 09/07/21 08:04 70 09/07/21 03:45 36.8 C 72 20 93/54 L 96 09/06/21 23:59 74 09/06/21 23:48 36.9 C 79 20 93/57 L 95 Laboratory Results 09/07/21 09/07/21 09/07/21 Range/Units 07:50 05:31 05:31 WBC 6.86 (4.8-10.8) K/uL RBC 3.64 L (4.7-6.1) M/uL Hgb 12.6 L (14.0-18.0) g/dL Hct 36.6 L (42-52) % MCV 100.5 H (80-100) fL MCH 34.6 H (25-34) pg MCHC 34.4 (32-36) g/dL RDW Std Deviation 56.7 H (36.4-46.3) fL RDW Coeff of Debby 15.4 H (11.5-14.5) % Plt Count 162 (130-400) K/uL MPV 10.4 (7.4-10.4) fL Immature Gran % (Auto) 0.1 % Neut % (Auto) 67.9 % Lymph % (Auto) 11.7 % [place] % (Auto) 16.2 % Eos % (Auto) 3.8 % Baso % (Auto) 0.3 % Neut # (Auto) 4.66 (1.4-6.5) K/uL Lymph # (Auto) 0.80 L (1.2-3.4) K/uL [place] # (Auto) 1.11 H (0.11-0.59) K/uL Eos # (Auto) 0.26 (0-0.5) K/uL Baso # (Auto) 0.02 (0-0.2) K/uL Immature Gran # (Auto) 0.01 (0.00-0.02) K/uL Sodium 136 (136-145) mmol/L Potassium 3.4 L (3.5-5.1) mmol/L Chloride 105 (98-107) mmol/L Carbon Dioxide 25 (21-32) mmol/L Anion Gap 6 (3-11) BUN 11 (6-23) mg/dl Creatinine 1.09 (0.6-1.4) mg/dl Est Cr Clr Drug Dosing 70.7 ml/min Est GFR ( Amer) 82.7 ml/min Est GFR (Non-Af Amer) 71.4 ml/min BUN/Creatinine Ratio 10.1 (10-20) Glucose 81 (70-99(Fasting)) mg/dl POC Glucose 75 (70-99) mg/dl Calcium 8.4 L (8.5-10.1) mg/dl Total Bilirubin 5.4 H (0.2-1.0) mg/dl AST 106 H (13-39) U/L ALT 77 H (7-52) U/L Alkaline Phosphatase 150 H (34-104) U/L Total Protein 6.4 (6.0-8.3) gm/dl Albumin 2.9 L (3.4-5.0) gm/dl Globulin 3.5 (2.5-4.0) gm/dl Albumin/Globulin Ratio 0.8 L (0.9-2) 09/06/21 09/06/21 09/06/21 Range/Units 20:31 18:26 15:43 WBC (4.8-10.8) K/uL RBC (4.7-6.1) M/uL Hgb (14.0-18.0) g/dL Hct (42-52) % MCV (80-100) fL MCH (25-34) pg MCHC (32-36) g/dL RDW Std Deviation (36.4-46.3) fL RDW Coeff of Debby (11.5-14.5) % Plt Count (130-400) K/uL MPV (7.4-10.4) fL Immature Gran % (Auto) % Neut % (Auto) % Lymph % (Auto) % [place] % (Auto) % Eos % (Auto) % Baso % (Auto) % Neut # (Auto) (1.4-6.5) K/uL Lymph # (Auto) (1.2-3.4) K/uL [place] # (Auto) (0.11-0.59) K/uL Eos # (Auto) (0-0.5) K/uL Baso # (Auto) (0-0.2) K/uL Immature Gran # (Auto) (0.00-0.02) K/uL Sodium (136-145) mmol/L Potassium (3.5-5.1) mmol/L Chloride (98-107) mmol/L Carbon Dioxide (21-32) mmol/L Anion Gap (3-11) BUN (6-23) mg/dl Creatinine (0.6-1.4) mg/dl Est Cr Clr Drug Dosing ml/min Est GFR ( Amer) ml/min Est GFR (Non-Af Amer) ml/min BUN/Creatinine Ratio (10-20) Glucose (70-99(Fasting)) mg/dl POC Glucose 171 H 102 H 130 H (70-99) mg/dl Calcium (8.5-10.1) mg/dl Total Bilirubin (0.2-1.0) mg/dl AST (13-39) U/L ALT (7-52) U/L Alkaline Phosphatase (34-104) U/L Total Protein (6.0-8.3) gm/dl Albumin (3.4-5.0) gm/dl Globulin (2.5-4.0) gm/dl Albumin/Globulin Ratio (0.9-2) // Range/Units 11:43 WBC (4.8-10.8) K/uL RBC (4.7-6.1) M/uL Hgb (14.0-18.0) g/dL Hct (42-52) % MCV (80-100) fL MCH (25-34) pg MCHC (32-36) g/dL RDW Std Deviation (36.4-46.3) fL RDW Coeff of Debby (11.5-14.5) % Plt Count (130-400) K/uL MPV (7.4-10.4) fL Immature Gran % (Auto) % Neut % (Auto) % Lymph % (Auto) % [place] % (Auto) % Eos % (Auto) % Baso % (Auto) % Neut # (Auto) (1.4-6.5) K/uL Lymph # (Auto) (1.2-3.4) K/uL [place] # (Auto) (0.11-0.59) K/uL Eos # (Auto) (0-0.5) K/uL Baso # (Auto) (0-0.2) K/uL Immature Gran # (Auto) (0.00-0.02) K/uL Sodium (136-145) mmol/L Potassium (3.5-5.1) mmol/L Chloride (98-107) mmol/L Carbon Dioxide (21-32) mmol/L Anion Gap (3-11) BUN (6-23) mg/dl Creatinine (0.6-1.4) mg/dl Est Cr Clr Drug Dosing ml/min Est GFR ( Amer) ml/min Est GFR (Non-Af Amer) ml/min BUN/Creatinine Ratio (10-20) Glucose (70-99(Fasting)) mg/dl POC Glucose 89 (70-99) mg/dl Calcium (8.5-10.1) mg/dl Total Bilirubin (0.2-1.0) mg/dl AST (13-39) U/L ALT (7-52) U/L Alkaline Phosphatase (34-104) U/L Total Protein (6.0-8.3) gm/dl Albumin (3.4-5.0) gm/dl Globulin (2.5-4.0) gm/dl Albumin/Globulin Ratio (0.9-2) Diagnostic Findings ERCP 09/06/21: - Grade II esophageal varices. - Portal hypertensive gastropathy. - Normal duodenal bulb and second portion of the duodenum. - Retained metal biliary stent in the remnant blind common bile duct post hepaticojejunostomy and right hepatectomy surgery. - Mild hepaticojejunostomy stenosis treated by balloon dilation with excellent drainage post dilation. (1) Fever Fever type: unspecified Qualified Code(s): R50.9 - Fever, unspecified (2) Cirrhosis of liver Hepatic cirrhosis type: other cirrhosis Qualified Code(s): K74.69 - Other cirrhosis of liver
[2021-09-07 16:41] LABS: Albumin Globulin Ratio 0.7 (0.9-2); BUN Creatinine Ratio 10.4 (10-20); Bilirubin,Total 4.9 mg/dl (0.2-1.0); Calcium 8.5 mg/dl (8.5-10.1); Creatinine Clr Calc Pharmacy 72.7 ml/min; Est GFR (African American) 85.5 ml/min; Est GFR (Non-African American) 73.8 ml/min; Globulin 4.1 gm/dl (2.5-4.0); Potassium 3.1 mmol/L (3.5-5.1); Total Protein 7.1 gm/dl (6.0-8.3)
--- NOTE | 2021-09-07 17:17 | Discharge Summary ---
Date of Service September 07, 2021 Admission HPI Per Admitting Provider 65yo male with a history of cirrhosis, CKD3, IDDM2, HTN, HLD, esophageal varices s/p banding, hypothyroidism, and portal hypertension presents with a one-day history of fever. Patient also reports rigors earlier today as well as nausea, vomiting, and chest pain. Symptoms stated around 5:30pm earlier today (09/03) with patient feeling feverish. He then developed rigors, which he has had during prior episodes of sepsis; d/t concerns for sepsis, patient presented to the ED. Tmax at home was 100.9. Patient reports associated nausea and vomiting; he was able to keep breakfast down but wasn't able to keep anything else down for the rest of the day. Vomit was nonbloody and nonbilious. Patient also notes some mild epigastric pain which he attributes to tensing his abdominal muscles during rigors. Epigastric pain is not worsened with exertion. Patient took APAP prior to arrival. In the ED, patient received NSS 1L bolus (x2), zofran, and zosyn. EKG was notable for sinus tachycardia and poor R wave progression without ectopy. Patient reports he feels significantly better than when he came in. Patient denies headache, vision changes, SOB, cough, sore throat, hematochezia, melena, diarrhea, numbness, tingling, or sick contacts. Admission Exam Per Admitting Provider Constitutional: well-appearing, no acute distress HEENT: MMM, no conjunctival injection, no scleral icterus CV: regular rhythm, no murmur appreciated, extremities well-perfused, no LE edema Resp: CTABL, no wheezes/rales/rhonchi appreciated, no increased work of breathing GI: soft, nondistended, mild RUQ and RLQ tenderness to palpation, no LUQ/LLQ tenderness, BS normoactive MSK: no gross deformities appreciated Skin: warm, dry, no rash appreciated, no appreciable jaundice Neuro: alert, oriented, no focal neurologic deficit appreciated Principal Diagnosis Sepsis with Bacteremia Discharge Exam Constitutional well developed, well nourished and cooperative Eyes PERRL, conjunctivae normal, anicteric sclerae ENMT external ear and nose normal, oropharynx normal Neck trachea midline, no thyromegaly Respiratory normal respiratory effort, lungs clear to auscultation Cardiovascular RRR, no murmur, no edema Chest (Breasts) Chest: normal inspection of chest Gastrointestinal (Abdomen) Inspection/Auscultation: abdomen normal to inspection Percussion/Palpation: abdomen soft; abdomen nontender Skin no rashes, warm and dry Neurologic CN's II-XI intact bilaterally Psychiatric A+Ox3, euthymic affect Discharge Data Allergies Allergy/AdvReac Type Severity Reaction Status Date / Time exenatide [From Byetta] AdvReac Intermediate Diarrhea Verified 09/03/21 20:48 Consultations 09/03/21 23:14 ED Decision to Admit Stat 09/04/21 00:49 Consult Gastroenterology Routine 09/05/21 09:40 Consult Infectious Diseases Routine Procedures Performed Operation Date: 09/06/21 08:00 Actual Procedures p Endoscopic Retrograde Cholangiopancreatogram(Not Applicable) - Tiff Burgos MD Ordered Studies 09/03/21 20:10 CT abd pelvis IV con only Urgent 09/06/21 [place] ERCP biliary ductal Routine Hospital Course (1) Fever: 65 yo M w/ pMHx. of cirrhosis, CKD3, IDDM2, HTN, HLD, esophageal varices s/p banding, hypothyroidism, and portal hypertension presents with a one-day history of fever, rigors, nausea, and vomiting. -Started on Augmentin 875mg BID for 6 days -Follow with PCP in 1 week, recheck LFTs Sepsis with Bacteremia Patient febrile on admission 38.4, tachycardic to 129 (has since improved to mid-100s), vitals otherwise stable. Received IVF in ED. CT a/p:cirrhosis and signs of Portal HTN. Blood PCR = gram negative bacilli e coli and enterobacterale. Bcx found ecoli and klebsiela resistant to cefazolin. ID consulted, if susceptible, may use oral medication Augmentin for total 10 days (end 09/12) Started Zosyn Vanc in ED, switched to Ceftriaxone and metronidazole, switched to Augmentin for outpatient. WBC 13.55 --> 6.86. Transaminitis, hyperbilirubinemia in the setting of cirrhosis Found on admission, patient has a history of both hyperbilirubinemia and transaminitis, likely secondary to known cirrhosis. Patient follows with GI at [facility] (on liver transplant list) - pt requests records to be sent to philosophy faculty member Niles-Zaki Cerna ([place]) (fax [phone]). GI consulted, ERCP performed, mild hepatojejunostomy stenosis dilated. Patient understands LFTs may trend upwards for a time after ERCP performed, should later trend back down. Hyponatremia -resolved Sodium on admission 133, given IVF --> recheck 136 Hypomagnesemia - resolved Magnesium 1.4 on admission, repleted GERD Continue home omeprazole IDDM2 HbA1c 6.0% (07/05/21), may resume home regime metformin, insulin CKD3 Creatinine on admission 1.16 (baseline 1.0-1.2). Recieved IVF GERD: continue home omeprazole HLD: continue home simvastatin HTN: BP well-controlled on admission, continue home regimen Hypothyroidism: continue home levothyroxine 175mcg PO qAM MDD: continue home bupropion (2) Cirrhosis: (3) CKD (chronic kidney disease), stage III: (4) Controlled type 2 diabetes mellitus, with long-term current use of insulin: (5) GERD (gastroesophageal reflux disease): (6) Hypertension: (7) Hyperlipidemia: (8) Hypothyroidism: (9) Portal hypertension: Total Time Total Time Spent Total Time Spent (In Minutes): see attending attestation Discharge Plan Discharge Items Patient Disposition: Home - Self-Care Reason For Visit: FEVER Discharge Diagnosis: Sepsis with Bacteremia Activity: Resume your previous activity Non-emergency contact: Primary Care Provider Call non-emergency contact if: you have any medication questions, your symptoms worsen, your pain is concerning for you and you have a fever Follow-up/Referrals: Outside Location [Outside] (Patient follows with [facility] philosophy faculty member Darren Cerna ([place]) (fax [phone]), please send him copy of discharge summary and ERCP results) Neelam Cooper CRNP [Primary Care Provider] - 09/19/21 10:30 am Diet: Carb Consistent or DM2 Addtl Attending Provider Instructions: You were admitted to the hospital for Sepsis with Bacteremia. You were treated with antibiotics, and your white blood cell count has improved over the course of your hospital stay. You were evaluated by Gastroenterology, who performed an ERCP to investigate your biliary tract. They dilated an area of stenosis of your biliary tract. This may lead to a temporary increase in your liver function tests. Please follow up with your PCP to have your LFTs rechecked. If they continue to trend upwards you may contact your philosophy faculty member at [facility]. A discharge summary will be sent to your primary care physician and philosophy faculty member to ensure continuity of care. Please bring this discharge summary with you to your next office appointment so that your provider can review it at that time. Follow-up appointments: Make a follow-up appointment with your PCP within the next week. It is very important that you follow up with them shortly after discharge from the hospital. Keep all your follow-up appointments as already scheduled. If you cannot make an appointment, notify your provider. Medications: Your medication list has been reviewed and reconciled upon discharge to ensure accuracy and continuity of care. An updated list of all your medications is included with your hospital discharge paperwork. Please review this list closely, and make note of any changes. * We sent a new medication called Augmentin to your pharmacy. Take Augmentin 875mg one tablet BID for 6 days. Take your medications as instructed; do not skip a dose of your medicines. Make sure all of your doctors know every medicine you are taking (including dpph-rly-gzomhmt medicines, vitamins, and supplements). Call your primary care provider before taking any new medicines (including mwbj-smk-rgzpzmf medicines, vitamins, and supplements), because some of these may interact with your current medications, or may make your symptoms worse. Tell your primary care provider if you cannot afford your medications. CONTACT YOUR PRIMARY CARE PROVIDER if you experience any of the following: Fever, Chills Abdominal pain, intractable nausea Difficulty following your treatment plan, or difficulty taking medications CALL 911 OR GO TO THE EMERGENCY DEPARTMENT if you experience any of the following: Sudden, severe abdominal pain or nausea/vomiting Severe chest pain, or chest pain that radiates (moves) to your jaw or arm Sudden, severe shortness of breath or difficulty breathing Thank you for allowing us to participate in your care. Pending Studies at Discharge: No Stand-Alone Forms: My [employer], Smoking Cessation Medications and DC Order Prescriptions: New amoxicillin-pot clavulanate 875-125 mg tablet 1 tab PO BID 6 Days Qty: 12 RF: 0 Continued biotin 10 mg tablet 10 mg PO QAM Qty: 30 RF: 0 ferrous sulfate [iron] 325 mg (65 mg iron) tablet 325 mg PO BID Qty: 60 RF: 0 (DME) pen needle, diabetic 32 gauge x 5/16" needle See Rx Instructions .Route Qty: 100 RF: 11 bupropion HCl 150 mg tablet sustained-release 12 hr 150 mg PO BID Qty: 180 RF: 3 furosemide 20 mg tablet 20 mg PO QAM Qty: 90 RF: 3 levothyroxine 175 mcg tablet 175 mcg PO QAM Qty: 90 RF: 3 metformin 1,000 mg tablet 1,000 mg PO BID Qty: 120 RF: 3 omeprazole 40 mg capsule,delayed release(DR/EC) 40 mg PO BID Qty: 120 RF: 3 simvastatin 20 mg tablet 20 mg PO DAILY Qty: 90 RF: 3 spironolactone 50 mg tablet 50 mg PO QAM Qty: 90 RF: 3 (DME) pen needle, diabetic [TRUEplus Pen Needle] 31 gauge x 5/16" needle See Rx Instructions .Route Qty: 100 RF: 5 escitalopram oxalate 10 mg tablet 10 mg PO DAILY Qty: 90 RF: 3 ondansetron 4 mg tablet,disintegrating See Rx Instructions .ROUTE .COMPLEX Qty: 30 RF: 3 cyanocobalamin (vitamin B-12) 1,000 mcg capsule 1,000 mcg PO QAM RF: 0 cannabidiol (CBD) extract 1 dose PO BID RF: 0 (DME) OneTouch Ultra Blue Test Strip Strip See Rx Instructions .ROUTE .MEDSUPPLY RF: 0 (DME) Dexcom G6 Sensor Device See Rx Instructions .Route RF: 0 cholecalciferol (vitamin D3) [Vitamin D3] 2,000 unit capsule 1,000 unit PO BID RF: 0 calcium carbonate [Calcium 600] 600 mg calcium (1,500 mg) Tablet 600 mg PO BID RF: 0 acetaminophen [Tylenol Extra Strength] 500 mg Tablet 500 mg PO Q6H PRN (Reason: Pain) RF: 0 insulin aspart U-100 [Novolog Flexpen U-100 Insulin] 100 unit/mL (3 mL) insulin pen 0 unit subcut DIRECTED RF: 0 insulin glargine [Lantus Solostar U-100 Insulin] 100 unit/mL (3 mL) insulin pen 15 unit subcut QAM RF: 0 Discharge Orders: Discharge Order (Routine); Ordered 09/07/21 Ordered By: Gloria Joya Admission Data Admit Date/Time: 09/06/21 14:29 Attending Provider: Kerry Nicole Admit Provider: Brian Rowe Primary Care Provider: Neelam Cooper Other Providers: Erasto Rojas ; Tiff Burgos ; Rodri Simms ; Tyson Marin ; Manuel Yang I. ; Woo Aguirre II ; Maria Ines Garcia ; Hesham Brand ; Michele Connell Other Interventions: Discharge Summary Assessment (RN) Last Done: 09/07/21 17:53 Supervising Physician Co-Signing Physician Notes Resident Physician Supervision Note: I independently interviewed and examined the patient and verified the trivedi history and physical, reviewed labs and image studies and agree with resident Dr. Joya findings and care plan. Resident Activity Tracking Resident Involvement: Resident Care Provided Care Provided: Adult Hospital Medicine
== END 2021-09-07 18:15 | disposition home or self-care (01) | DRG 871 ==
LOC: 2S 19:50 → ED 19:50 → SUATTDRO 09-04 00:49 → 2S 09-04 01:58 → 2N 09-04 20:13

== ENCOUNTER 2024-01-30 15:49 | Inpatient (IN) ==
[2024-01-30 16:32] LABS: Basophils # (auto) 0.04 K/uL (0.00-0.20); Basophils % (auto) 0.5 %; Eosinophils # (auto) 0.51 K/uL (0.00-0.50); Eosinophils % (auto) 5.7 %; Hemoglobin 13.2 g/dl (14.0-18.0); Immature Granulocytes # (auto) 0.04 K/uL (0.01-0.20); Immature Granulocytes % (auto) 0.5 %; Lymphocytes # (auto) 0.83 K/uL (1.20-3.40); Lymphocytes % (auto) 9.3 %; Mean Corpuscular Hemoglobin 33.4 pg (25.0-34.0); Mean Corpuscular Volume 101.3 fL (80.0-100.0); Mean Platelet Volume 9.9 fL (9.4-12.4); Monocytes % (auto) 16.9 %; Neutrophils # (auto) 5.96 K/uL (1.40-6.50); Neutrophils % (auto) 67.1 %; Platelet Count 283 K/uL (130-400); RDW Coefficient of Variation 15.9 % (11.5-14.5); RDW Standard Deviation 58.7 fL (36.4-46.3); Red Blood Count 3.95 M/uL (4.70-6.10); White Blood Count 8.88 K/ul (4.8-10.8)
[2024-01-30 16:48] LABS: Albumin Globulin Ratio 0.7 (0.9-2); Albumin Level 2.9 gm/dl (3.4-5.0); BUN Creatinine Ratio 10.7 (10-20); Calcium 8.7 mg/dl (8.6-10.3); Creatinine Clr Calc Pharmacy 88.1 ml/min; Globulin 4.2 gm/dl (2.5-4.0); Total Protein 7.1 gm/dl (6.0-8.3)
--- NOTE | 2024-01-30 17:01 | XRay Report ---
EXAM: Radiographs of the Bilateral Ribs and AP Chest 3 or More Views INDICATION: Pain. TECHNIQUE: Frontal and oblique views of the bilateral ribs and frontal view of the chest. COMPARISON: Chest x-ray 01/28/2024 and 09/26/2022 FINDINGS: Lungs and pleural spaces: No consolidation or pulmonary edema. No pleural effusion or pneumothorax. Heart: No abnormality noted. No cardiomegaly. Mediastinum: Normal contour. Bones/joints: There is mild cortical offset of the anterior left sixth rib seen only on 1 view. On 1 image there may be nondisplaced fractures of the anterolateral right eighth and ninth ribs. Mild degenerative changes throughout the spine noted. Interval widening of the right AC joint noted compared to 2022. Tubes, lines and devices: TIPS catheter present. IMPRESSION: 1. Question nondisplaced fractures right anterior eighth and ninth and left sixth ribs. 2. No acute cardiopulmonary disease. 3. The right AC joint has widened since the study of 2022 and is not well-evaluated on the most recent prior exam. Correlate clinically for symptomatic AC separation. ACT 112: Negative or not required by law. Electronically signed by Tammi Carter 01-30-2024 5:00 PM
[2024-01-30 17:10] LABS: INR 1.6 (0.9-1.1); Partial Thromboplastin Ratio 1.2; Partial Thromboplastin Time 32 Seconds (21-31); Prothrombin Time 16.3 Seconds (9.0-12.0)
[2024-01-30] MEDS: OPTIRAY 320 100ml IV ONE (17:30)
[2024-01-30] MEDS: KETOROLAC TROMETHAMINE 15 MG/ML VIAL IV STA (18:00)
--- NOTE | 2024-01-30 18:04 | CT Scan Report ---
EXAM: CT Abdomen and Pelvis With Intravenous Contrast INDICATION: Right lower quadrant pain while coughing. TECHNIQUE: Axial computed tomography images of the abdomen and pelvis with intravenous contrast. Sagittal and coronal reformatted images were created and reviewed. This CT exam was performed using one or more of the following dose reduction techniques: automated exposure control, adjustment of the mA and/or kV according to patient size, and/or use of iterative reconstruction technique. CONTRAST: 94ml of Optiray 320 was administered intravenously. COMPARISON: 12/20/2023 FINDINGS: Limitations: None. Lung bases and pleural space: Pleural space: Resolved trace pleural effusions. Mild atelectasis noted in the lung bases. Heart: No abnormality noted. Mediastinum: No abnormality noted. ABDOMEN: Liver: Stable cirrhotic appearance of the liver and changes of partial hepatectomy. Stable pneumobilia. Stable cyst in the periphery of the dome. No enhancing mass identified. Gallbladder and bile ducts: Stable common bile duct stent. Pancreas: Homogeneous enhancement. No mass, inflammation or ductal dilation. Spleen: Multiple granuloma noted in the spleen. Adrenals: No significant abnormality noted. Kidneys and ureters: Normal enhancement. No mass, hydronephrosis or visualized stone. Stomach and bowel: No change colonic and small bowel thickening involving numerous loops most severe in the transverse and left colon. No intestinal obstruction. No pneumatosis. PELVIS: Appendix: No findings to suggest acute appendicitis. Bladder: No filling defects to suggest mass or large stone. No inflammation. Reproductive: No abnormalities noted. ABDOMEN and PELVIS: Intraperitoneal space: Stable moderate ascites noted with stable mild septation. No organized collection to suggest abscess. No free air. Bones/joints: No acute changes. Soft tissues: Stable bilateral gynecomastia. No abdominal wall hernia noted. Vasculature: Stable varices including prominent perirectal varices. Atherosclerotic calcifications throughout the aorta without aneurysm or dissection. Lymph nodes: Stable scattered retroperitoneal nodes measuring up to 1 cm. IMPRESSION: 1. No interval change in enterocolitis which could be infectious, related to chronic ascitic irritation. Also consider low protein and vascular congestive states. 2. Stable ascites with mild septation. 3. Stable cirrhotic liver. ACT 112: Negative or not required by law. Electronically signed by Tammi Carter 01-30-2024 6:03 PM
[2024-01-30 18:32] LABS: Adenovirus PCR Not Detected (NotDetected); Bordetella parapertussis PCR Not Detected (NotDetected); Bordetella pertussis PCR Not Detected (NotDetected); Chlamydia pneumoniae PCR Not Detected (NotDetected); Coronavirus 229E PCR Not Detected (NotDetected); Coronavirus CoV-2 (COVID19)PCR Not Detected (NotDetected); Coronavirus HKU1 PCR Not Detected (NotDetected); Coronavirus NL63 PCR Not Detected (NotDetected); Coronavirus OC43PCR Not Detected (NotDetected); Human Metapneumovirus PCR Not Detected (NotDetected); Influenza A PCR Not Detected (NotDetected); Influenza B PCR Not Detected (NotDetected); Mycoplasma pneumoniae PCR Not Detected (NotDetected); Parainfluenza Virus 1 PCR Not Detected (NotDetected); Parainfluenza Virus 2 PCR Not Detected (NotDetected); Parainfluenza Virus 3 PCR Not Detected (NotDetected); Parainfluenza Virus 4 PCR Not Detected (NotDetected); Respiratory Syncytial VirusPCR Not Detected (NotDetected); Rhinovirus/Enterovirus PCR Not Detected (NotDetected)
[2024-01-30] MEDS: SODIUM CHLORIDE 0.9% 1,000 ML IV SCH (18:53)
--- NOTE | 2024-01-30 19:10 | Emergency Department Note ---
History of Present Illness General Chief complaint: Cough Stated complaint: COUGHING, STABBING PAIN IN LOWER RIGHT ABD Time Seen by Provider: 01/30/24 16:38 History of Present Illness Provider complaint: Cough abdominal pain Maximum Pain Intensity: 9 68-year-old male presents emergency department for cough and abdominal pain. Patient reports cough for the last 3 weeks. He reports producing yellow sputum. He reports no hemoptysis. Patient states he has been on prednisone which has not been helping. Patient states he was also on 2 courses of antibiotics azithromycin as well as doxycycline but that has not been helping either. Patient reports yesterday he began coughing so hard that he started having pain in his right lower quadrant. Patient also reports he has some bruising over his ribs because his Siberian husky dog jumped on him. Denies any falls or traumas. Patient is on Coumadin. Home Medications Medication Instructions Recorded Confirmed Type biotin 10 mg tablet 10 mg PO QAM #30 tabs 08/11/18 01/30/24 Rx ferrous sulfate 325 mg (65 mg 325 mg PO BID #60 tabs 08/11/18 01/30/24 Rx iron) tablet (iron) cyanocobalamin (vitamin B-12) 1,000 mcg PO QAM 11/25/18 01/30/24 History 1,000 mcg capsule calcium carbonate (Calcium 600) 600 mg PO BID 12/25/18 01/30/24 History cholecalciferol (vitamin D3) 50 1,000 unit PO BID 12/25/18 01/30/24 History mcg (2,000 unit) capsule (Vitamin D3) cannabidiol (CBD) extract 1 dose PO BID 01/09/19 01/30/24 History acetaminophen 500 mg tablet 500 mg PO Q6H PRN Pain 07/03/20 01/30/24 History (Tylenol Extra Strength) blood sugar diagnostic (OneTouch 02/10/21 01/20/24 History Ultra Blue Test Strip) sertraline 50 mg tablet 50 mg PO DAILY #90 tabs 12/31/22 01/30/24 Rx blood-glucose meter,continuous 01/03/23 01/20/24 History (Dexcom G7 Registered Account Administrator) warfarin 2.5 mg tablet 2.5 mg PO .COMPLEX #90 tabs 02/19/23 01/30/24 Rx warfarin 5 mg tablet 5 mg PO DAILY #90 tabs 02/19/23 01/30/24 Rx insulin aspart U-100 100 unit/mL 20 unit (0.2 mL) subcut DAILY #30 06/04/23 01/30/24 Rx (3 mL) subcutaneous pen (Novolog mL FlexPen U-100 Insulin aspart) lorazepam 0.5 mg tablet 0.5 mg PO DAILY PRN anxiety #30 08/19/23 01/30/24 Rx tabs levothyroxine 175 mcg tablet 175 mcg PO QAM #90 tabs 08/22/23 01/30/24 Rx simvastatin 20 mg tablet 20 mg PO QAM #90 tabs 08/22/23 01/30/24 Rx bupropion HCl 150 mg tablet,12 hr 150 mg PO BID #180 tabs 09/02/23 01/30/24 Rx sustained-release metformin 1,000 mg tablet 1,000 mg PO BID #180 tabs 09/02/23 01/30/24 Rx spironolactone 50 mg tablet 50 mg PO QAM #90 tabs 09/02/23 01/30/24 Rx furosemide 20 mg tablet 20 mg PO QAM #90 tabs 09/05/23 01/30/24 Rx omeprazole 40 mg capsule,delayed 40 mg PO BID #180 caps 09/09/23 01/30/24 Rx release pen needle, diabetic 31 gauge x #100 ea 10/09/23 01/20/24 Rx 5/16" (TechLITE Pen Needle) ondansetron 4 mg disintegrating 4 mg translingual Q6H PRN 01/13/24 01/30/24 Rx tablet NAUSEA/VOMITING #30 tabs insulin glargine 100 unit/mL (3 4 unit subcut QAM 01/30/24 01/30/24 History mL) subcutaneous pen (Lantus Solostar U-100 Insulin) Allergies Allergy/AdvReac Type Severity Reaction Status Date / Time exenatide [From [place]] AdvReac Intermediate Diarrhea Verified 01/30/24 20:52 Past Med/Surg History Problem List (Updated 01/30/24 @ 23:12 by Scooter Martinez MD) Abdominal pain (Acute) Lactic acidemia (Acute) Closed rib fracture (Acute) URI (upper respiratory infection) (Acute) Persistent cough for 3 weeks or longer Cough in adult Right shoulder pain Bronchitis Nausea & vomiting Diarrhea Acute sinusitis Vitamin D deficiency Anticoagulant long-term use Hyperlipidemia (Chronic) Portal hypertension (Chronic) Controlled type 2 diabetes mellitus, with long-term current use of insulin (Chronic) Mild renal insufficiency (Chronic) Anxiety and depression (Chronic) Gastritis Bacteremia due to Gram-negative bacteria Hyperbilirubinemia Tremor Hypoglycemia Superior labrum awwhhjmi-rr-tbtddvpce (SLAP) tear of left shoulder (Chronic) Weight loss Insomnia CKD (chronic kidney disease), stage III BERNAL (nonalcoholic steatohepatitis) (Acute) Awaiting liver transplant 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) Hypertension (Chronic) hx Peripheral neuropathy (Chronic) Hypothyroidism (Chronic) Esophageal varices hx banding GERD (gastroesophageal reflux disease) Cirrhosis of liver Medical History Decreased range of motion of left shoulder Left arm weakness COVID-19 virus infection 2021--mild symptoms "just a headache", no symptoms now Colitis Gram-negative bacteremia History of ascites DM type 2 (diabetes mellitus, type 2) IDDM GI bleed hx Anemia Post traumatic stress disorder Surgical History History of abdominal paracentesis multiple (last 2 years ago) History of surgery of liver Hepatic lobectomy (benign tumor) S/P debridement ABDOMINAL WOUND 2017 History of herniorrhaphy WITH MESH-2018 History of ERCP last 08/2021 @ [facility] Hx of hand surgery RT HAND/ARM SURGERY (METAL PLATE D/T FX) Hx of vasectomy History of esophagogastroduodenoscopy (EGD) History of colonoscopy History of cholecystectomy History of tooth extraction Family History Mother Diabetes Grandmother No problems noted. Grandmother (Maternal) Diabetes Family/Other Heart disease Cancer Hypertension Other No family history of adverse response to anesthesia Denies family history of Ovarian cancer Prostate cancer Myocardial infarction Breast cancer Colorectal cancer Social History Smoking Status: Never smoker Tobacco Type: Cigarettes and Smokeless Tobacco (Dip or Chew) Age Started Using Tobacco: 17; Age Quit Using Tobacco: 31; packs per day: 1.5; Cigarettes Per Day: QUIT 35 YEARs ago; Second Hand Exposure: No; Do You Dip or Chew Tobacco: No; Hx Alcohol Use: No Hx Substance Use: No Preferred Language: Uzbek Communication Ability: Effective Hearing Ability: Normal Glass Bulb Machine Adjuster Required: No Beliefs That Will Affect Care: None marital status: Current Living Situation: Spouse current occupational status: retired How many Children do You have: 3 Feels Safe at Home: Yes Childhood Exposure to Second-Hand Smoke: Yes Diet: regular caffeine: Yes Dental Care, Regularly: Yes Physical Activity Frequency: 3-4 Times per Week Seatbelt Use: never Sunscreen Use: No Assistive Devices: Denture - Upper and Denture - Lower Physical Exam Vital Signs Vital Signs - 24 hr 01/30/24 15:52 01/30/24 17:24 01/30/24 17:50 Temperature 36.8 C Temperature Source Skin Pulse Rate 89 77 Pulse Rate [Apical] 79 Respiratory Rate 18 18 Respiratory Depth Blood Pressure 110/72 Blood Pressure [Right Arm] 112/69 Blood Pressure Mean 84 Blood Pressure Mean [Right Arm] 83 Blood Pressure Position [Right Arm] Semi-fowlers Pulse Oximetry 96 95 Oxygen Delivery Method Room Air Room Air Sepsis Recent Fever Within 48 Hours No Sepsis New/Unexplained Change in Mental Status No Sepsis Action Taken by Nursing No Action Required 01/30/24 19:00 01/30/24 20:43 01/30/24 20:49 Temperature Temperature Source Pulse Rate 74 Pulse Rate [Apical] 79 76 Respiratory Rate 18 Respiratory Depth Normal Blood Pressure Blood Pressure [Right Arm] 94/73 L 112/72 Blood Pressure Mean Blood Pressure Mean [Right Arm] 80 85 Blood Pressure Position [Right Arm] Semi-fowlers Pulse Oximetry 97 Oxygen Delivery Method Room Air Sepsis Recent Fever Within 48 Hours Sepsis New/Unexplained Change in Mental Status Sepsis Action Taken by Nursing 01/30/24 22:00 Temperature Temperature Source Pulse Rate Pulse Rate [Apical] 71 Respiratory Rate 17 Respiratory Depth Blood Pressure Blood Pressure [Right Arm] 109/73 Blood Pressure Mean Blood Pressure Mean [Right Arm] 85 Blood Pressure Position [Right Arm] Semi-fowlers Pulse Oximetry 95 Oxygen Delivery Method Room Air Sepsis Recent Fever Within 48 Hours Sepsis New/Unexplained Change in Mental Status Sepsis Action Taken by Nursing Physical Exam GENERAL: He is oriented to person, place, and time. He appears well-developed and well-nourished. He does not appear distressed. HENT: Exam performed. - Head: Normocephalic and atraumatic. - Right Ear: External ear normal. No mastoid erythema - Left Ear: External ear normal. No mastoid erythema - Mouth/Throat: The oropharynx is clear and moist. No trismus in the jaw. No dental abscesses or uvula swelling. No oropharyngeal exudate or tonsillar abscesses. EYES: Conjunctivae and EOM are normal. Pupils are equal, round, and reactive to light. Right eye exhibits no discharge. Left eye exhibits no discharge. No scleral icterus. NECK: Normal range of motion. Neck supple. No JVD present. No spinous process tenderness present. CV: Normal rate, regular rhythm, normal heart sounds and intact distal pulses. There is no peripheral edema. Palpable radial pulses bue. PULM/CHEST: Effort normal and breath sounds normal. No respiratory distress. No stridor. He has no wheezes. He has no rales. - Chest Wall: Bruising over the right inferolateral ribs with ecchymosis over the right inferolateral ribs. Pain on palpation of that area. No crepitus bilaterally. ABD: The abdomen is soft. He has no distension. No mass is present. There is no tenderness. There is no rebound, no guarding. MUSC/SKEL: Normal range of motion. There is no peripheral edema, tenderness or deformity. LYMPH: No cervical adenopathy. NEURO: He is alert and oriented to person, place, and time. He has normal strength. No cranial nerve deficit or sensory deficit. Coordination and gait normal. GCS eye subscore is 4. GCS verbal subscore is 5. GCS motor subscore is 6. Cerebellar tests wnl. SKIN: Skin is warm and dry. He is not diaphoretic. PSYCH: He has a normal mood and affect. Behavior is normal. Judgment and thought content normal. Course Course 1637: The patient was evaluated in room C1. A complete history and physical exam was performed Cardiac monitoring: An order was placed for continuous cardiac monitoring. The monitor shows a rate of 80 with sinus rhythm interpreted by me 1914: Patient serum lactic acid 2.7. Will give 2 L normal saline. 2043: Vital signs stable. Status post 2 L normal saline the patient's lactic acid 1-2.5. Patient's INR subtherapeutic at 1.6. White blood cell count within normal limits. Procalcitonin within normal limits. CT of the abdomen pelvis shows no acute findings. X-ray of the chest and ribs showed to rib fractures on the right and 1 were fracture on the left. Discussed the case with Dr. Grimaldo [facility] hospitalist. Both agreed would be best to obtain a CT of the chest given his subtherapeutic INR to make sure there is no PE and as well as any underlying pneumonia is not visualized on the chest x-ray. Zosyn ordered for the patient. Patient is agreement with the plan. 2310: Vital signs stable. CTA of the chest negative for PE or infiltrate. Patient be admitted to the hospital service Dr. Grimaldo evaluate the patient. Administered Medications Discontinued Medications Sodium Chloride (Nss) 1,000 mls @ 999 mls/hr IV .Q1H1M YENNI Stop: 01/30/24 21:00 Last Infusion: 01/30/24 20:00 Dose: Infused Documented By: Admin: 01/30/24 19:26 Dose: 999 mls/hr Documented By: Infusion: 01/30/24 19:26 Dose: Infused Documented By: Admin: 01/30/24 18:53 Dose: 999 mls/hr Documented By: NARENDRA Piperacillin Sod/Tazobactam Sod (Zosyn) 4.5 gm in 120 mls @ 240 mls/hr IV NOW ONE Stop: 01/30/24 21:06 Last Infusion: 01/30/24 21:51 Dose: Infused Documented By: Admin: 01/30/24 21:21 Dose: 240 mls/hr Documented By: NARENDRA Ioversol (Optiray 320 100ml) 93 ml IV ONCE ONE Stop: 01/30/24 17:31 Last Admin: 01/30/24 17:30 Dose: 93 ml Documented By: JENELLE Ioversol (Optiray 320 125ml) 116 ml IV ONCE ONE Stop: 01/30/24 21:02 Last Admin: 01/30/24 21:01 Dose: 116 ml Documented By: ELINA Ketorolac Tromethamine (Ketorolac Tromethamine 15 Mg/Ml Vial) 15 mg IV NOW STA Stop: 01/30/24 17:56 Last Admin: 01/30/24 18:00 Dose: 15 mg Documented By: NARENDRA Medical Decision Making Laboratory Data Attestation: I reviewed the patient's lab results. 01/30/24 16:01 01/30/24 16:01 Lab Results 01/30/24 01/30/24 01/30/24 Range/Units 16:01 17:00 17:06 WBC 8.88 (4.8-10.8) K/ul RBC 3.95 L (4.70-6.10) M/uL Hgb 13.2 L (14.0-18.0) g/dl Hct 40.0 L (42.0-52.0) % MCV 101.3 H (80.0-100.0) fL MCH 33.4 (25.0-34.0) pg MCHC 33.0 (32.0-36.0) g/dL RDW Std Deviation 58.7 H (36.4-46.3) fL RDW Coeff of Debby 15.9 H (11.5-14.5) % Plt Count 283 (130-400) K/uL MPV 9.9 (9.4-12.4) fL Immature Gran % (Auto) 0.5 % Neut % (Auto) 67.1 % Lymph % (Auto) 9.3 % [place] % (Auto) 16.9 % Eos % (Auto) 5.7 % Baso % (Auto) 0.5 % Neut # (Auto) 5.96 (1.40-6.50) K/uL Lymph # (Auto) 0.83 L (1.20-3.40) K/uL [place] # (Auto) 1.50 H (0.11-0.59) K/uL Eos # (Auto) 0.51 H (0.00-0.50) K/uL Baso # (Auto) 0.04 (0.00-0.20) K/uL Immature Gran # (Auto) 0.04 (0.01-0.20) K/uL PT 16.3 H (9.0-12.0) Seconds INR 1.6 H (0.9-1.1) APTT 32 H (21-31) Seconds PTT Ratio 1.2 Sodium 137 (136-145) mmol/L Potassium 4.0 (3.5-5.1) mmol/L Chloride 103 (98-107) mmol/L Carbon Dioxide 28 (21-32) mmol/L Anion Gap 6 (3-11) BUN 9 (6-23) mg/dl Creatinine 0.84 (0.6-1.4) mg/dl Est Cr Clr Drug Dosing 88.1 ml/min eGFR 95.58 BUN/Creatinine Ratio 10.7 (10-20) Glucose 137 H (70-99(Fasting)) mg/dl Lactate 2.7 H* (0.4-2.0) mmol/L Calcium 8.7 (8.6-10.3) mg/dl Total Bilirubin 2.0 H (0.2-1.0) mg/dl AST 52 H (13-39) U/L ALT 30 (7-52) U/L Alkaline Phosphatase 140 H (34-104) U/L Total Protein 7.1 (6.0-8.3) gm/dl Albumin 2.9 L (3.4-5.0) gm/dl Globulin 4.2 H (2.5-4.0) gm/dl Albumin/Globulin Ratio 0.7 L (0.9-2) Procalcitonin 0.08 (0-0.5) ng/ml Adenovirus (PCR) Not Detected (NotDetected) B. pertussis DNA (PCR) Not Detected (NotDetected) B.parapertussis DNA PCR Not Detected (NotDetected) C. pneumoniae DNA (PCR) Not Detected (NotDetected) Coronavirus OC43 (PCR) Not Detected (NotDetected) Coronavirus HKU1 (PCR) Not Detected (NotDetected) Coronavirus 229E (PCR) Not Detected (NotDetected) SARS-CoV-2 (PCR) Not Detected (NotDetected) Coronavirus NL63 (PCR) Not Detected (NotDetected) Human Metapneumovir PCR Not Detected (NotDetected) Influenza Type A (PCR) Not Detected (NotDetected) Influenza Type B (PCR) Not Detected (NotDetected) M. pneumoniae (PCR) Not Detected (NotDetected) Parainfluenza 1 (PCR) Not Detected (NotDetected) Parainfluenza 2 (PCR) Not Detected (NotDetected) Parainfluenza 3 (PCR) Not Detected (NotDetected) Parainfluenza 4 (PCR) Not Detected (NotDetected) RSV (PCR) Not Detected (NotDetected) Entero/Rhino (PCR) Not Detected (NotDetected) 01/30/24 Range/Units 20:06 WBC (4.8-10.8) K/ul RBC (4.70-6.10) M/uL Hgb (14.0-18.0) g/dl Hct (42.0-52.0) % MCV (80.0-100.0) fL MCH (25.0-34.0) pg MCHC (32.0-36.0) g/dL RDW Std Deviation (36.4-46.3) fL RDW Coeff of Debby (11.5-14.5) % Plt Count (130-400) K/uL MPV (9.4-12.4) fL Immature Gran % (Auto) % Neut % (Auto) % Lymph % (Auto) % [place] % (Auto) % Eos % (Auto) % Baso % (Auto) % Neut # (Auto) (1.40-6.50) K/uL Lymph # (Auto) (1.20-3.40) K/uL [place] # (Auto) (0.11-0.59) K/uL Eos # (Auto) (0.00-0.50) K/uL Baso # (Auto) (0.00-0.20) K/uL Immature Gran # (Auto) (0.01-0.20) K/uL PT (9.0-12.0) Seconds INR (0.9-1.1) APTT (21-31) Seconds PTT Ratio Sodium (136-145) mmol/L Potassium (3.5-5.1) mmol/L Chloride (98-107) mmol/L Carbon Dioxide (21-32) mmol/L Anion Gap (3-11) BUN (6-23) mg/dl Creatinine (0.6-1.4) mg/dl Est Cr Clr Drug Dosing ml/min eGFR BUN/Creatinine Ratio (10-20) Glucose (70-99(Fasting)) mg/dl Lactate 2.5 H* (0.4-2.0) mmol/L Calcium (8.6-10.3) mg/dl Total Bilirubin (0.2-1.0) mg/dl AST (13-39) U/L ALT (7-52) U/L Alkaline Phosphatase (34-104) U/L Total Protein (6.0-8.3) gm/dl Albumin (3.4-5.0) gm/dl Globulin (2.5-4.0) gm/dl Albumin/Globulin Ratio (0.9-2) Procalcitonin (0-0.5) ng/ml Adenovirus (PCR) (NotDetected) B. pertussis DNA (PCR) (NotDetected) B.parapertussis DNA PCR (NotDetected) C. pneumoniae DNA (PCR) (NotDetected) Coronavirus OC43 (PCR) (NotDetected) Coronavirus HKU1 (PCR) (NotDetected) Coronavirus 229E (PCR) (NotDetected) SARS-CoV-2 (PCR) (NotDetected) Coronavirus NL63 (PCR) (NotDetected) Human Metapneumovir PCR (NotDetected) Influenza Type A (PCR) (NotDetected) Influenza Type B (PCR) (NotDetected) M. pneumoniae (PCR) (NotDetected) Parainfluenza 1 (PCR) (NotDetected) Parainfluenza 2 (PCR) (NotDetected) Parainfluenza 3 (PCR) (NotDetected) Parainfluenza 4 (PCR) (NotDetected) RSV (PCR) (NotDetected) Entero/Rhino (PCR) (NotDetected) Imaging Data Attestation: I personally reviewed and interpreted this imaging study as follows: My Impression: Chest x-ray: No pneumothorax no infiltrate Radiologist's Impression: Ribs w/Chest X-Ray 01/30/24 16:00 EXAM: Radiographs of the Bilateral Ribs and AP Chest 3 or More Views INDICATION: Pain. TECHNIQUE: Frontal and oblique views of the bilateral ribs and frontal view of the chest. COMPARISON: Chest x-ray 01/28/2024 and 09/26/2022 FINDINGS: Lungs and pleural spaces: No consolidation or pulmonary edema. No pleural effusion or pneumothorax. Heart: No abnormality noted. No cardiomegaly. Mediastinum: Normal contour. Bones/joints: There is mild cortical offset of the anterior left sixth rib seen only on 1 view. On 1 image there may be nondisplaced fractures of the anterolateral right eighth and ninth ribs. Mild degenerative changes throughout the spine noted. Interval widening of the right AC joint noted compared to 2022. Tubes, lines and devices: TIPS catheter present. IMPRESSION: 1. Question nondisplaced fractures right anterior eighth and ninth and left sixth ribs. 2. No acute cardiopulmonary disease. 3. The right AC joint has widened since the study of 2022 and is not well-evaluated on the most recent prior exam. Correlate clinically for symptomatic AC separation. ACT 112: Negative or not required by law. Electronically signed by Tammi Carter 01-30-2024 5:00 PM Abdomen/Pelvis CT 01/30/24 16:49 EXAM: CT Abdomen and Pelvis With Intravenous Contrast INDICATION: Right lower quadrant pain while coughing. TECHNIQUE: Axial computed tomography images of the abdomen and pelvis with intravenous contrast. Sagittal and coronal reformatted images were created and reviewed. This CT exam was performed using one or more of the following dose reduction techniques: automated exposure control, adjustment of the mA and/or kV according to patient size, and/or use of iterative reconstruction technique. CONTRAST: 94ml of Optiray 320 was administered intravenously. COMPARISON: 12/20/2023 FINDINGS: Limitations: None. Lung bases and pleural space: Pleural space: Resolved trace pleural effusions. Mild atelectasis noted in the lung bases. Heart: No abnormality noted. Mediastinum: No abnormality noted. ABDOMEN: Liver: Stable cirrhotic appearance of the liver and changes of partial hepatectomy. Stable pneumobilia. Stable cyst in the periphery of the dome. No enhancing mass identified. Gallbladder and bile ducts: Stable common bile duct stent. Pancreas: Homogeneous enhancement. No mass, inflammation or ductal dilation. Spleen: Multiple granuloma noted in the spleen. Adrenals: No significant abnormality noted. Kidneys and ureters: Normal enhancement. No mass, hydronephrosis or visualized stone. Stomach and bowel: No change colonic and small bowel thickening involving numerous loops most severe in the transverse and left colon. No intestinal obstruction. No pneumatosis. PELVIS: Appendix: No findings to suggest acute appendicitis. Bladder: No filling defects to suggest mass or large stone. No inflammation. Reproductive: No abnormalities noted. ABDOMEN and PELVIS: Intraperitoneal space: Stable moderate ascites noted with stable mild septation. No organized collection to suggest abscess. No free air. Bones/joints: No acute changes. Soft tissues: Stable bilateral gynecomastia. No abdominal wall hernia noted. Vasculature: Stable varices including prominent perirectal varices. Atherosclerotic calcifications throughout the aorta without aneurysm or dissection. Lymph nodes: Stable scattered retroperitoneal nodes measuring up to 1 cm. IMPRESSION: 1. No interval change in enterocolitis which could be infectious, related to chronic ascitic irritation. Also consider low protein and vascular congestive states. 2. Stable ascites with mild septation. 3. Stable cirrhotic liver. ACT 112: Negative or not required by law. Electronically signed by Tammi Carter 01-30-2024 6:03 PM Chest CTA 01/30/24 20:39 Exam(s): CTA CHEST IV Amt: 116 ml optiray 320 EXAM: CT Angiography Chest With Intravenous Contrast CLINICAL HISTORY: Evaluate for potential PE. TECHNIQUE: Axial computed tomographic angiography images of the chest with intravenous contrast. CTDI is 36.71 mGy and DLP is 694.88 mGy-cm. Automated exposure control was utilized for the study. A dose lowering technique was utilized adhering to the principles of ALARA. MIP reconstructed images were created and reviewed. COMPARISON: No relevant prior studies available. FINDINGS: Pulmonary arteries: No evidence for pulmonary embolism. Aorta: The thoracic aorta is normal in caliber without dissection or aneurysm. Atherosclerotic calcification noted. Lungs: Calcified granuloma noted involving the right lower lobe. No focal airspace consolidation identified. Thin-walled cyst noted centrally in the left lower lobe, measuring 2.1 cm. Pleural space: Unremarkable. No significant effusion. No pneumothorax. Heart: Cardiac chambers are normal in caliber. Prominent coronary artery calcification noted in the LAD and proximal circumflex distributions. Bones/joints: No acute fracture. No dislocation. Soft tissues: Gynecomastia. No other significant soft tissue abnormality. Lymph nodes: No significant lymphadenopathy. Calcified subcarinal and right hilar lymph nodes. Gallbladder and bile ducts: Pneumobilia noted throughout the liver. There appears to be resection of the right lobe of the liver with surgical clips noted about the IVC suggesting potential transplantation. Intraperitoneal space: Mild ascites noted in the left upper quadrant adjacent to the stomach and spleen. No obvious loculation, where included. IMPRESSION: 1. No evidence for pulmonary embolism. 2. No focal airspace consolidation identified. No pleural effusion or pneumothorax. 3. Mild ascites noted in the left upper quadrant adjacent to the stomach and spleen. No obvious loculation, where included. Electronically signed by: Olvin Garsia MD 01/30/24 23:06 PM [facility] Narrative 1638: The patient was evaluated in room C1. A complete history and physical exam was performed Cardiac monitoring: An order was placed for continuous cardiac monitoring. The monitor shows a rate of 80 with sinus rhythm interpreted by me 191: Patient serum lactic acid 2.7. Will give 2 L normal saline. 2043: Vital signs stable. Status post 2 L normal saline the patient's lactic acid 1-2.5. Patient's INR subtherapeutic at 1.6. White blood cell count within normal limits. Procalcitonin within normal limits. CT of the abdomen pelvis shows no acute findings. X-ray of the chest and ribs showed to rib fractures on the right and 1 were fracture on the left. Discussed the case with Dr. Grimaldo [facility] hospitalist. Both agreed would be best to obtain a CT of the chest given his subtherapeutic INR to make sure there is no PE and as well as any underlying pneumonia is not visualized on the chest x-ray. Zosyn ordered for the patient. Patient is agreement with the plan. 2309: Vital signs stable. CTA of the chest negative for PE or infiltrate. Patient be admitted to the hospital service Dr. Grimaldo evaluate the patient. Impression & Plan URI (upper respiratory infection), Closed rib fracture, Lactic acidemia, Abdominal pain Discharge Plan Visit Data Chief Complaint: Cough Stated Complaint: COUGHING, STABBING PAIN IN LOWER RIGHT ABD ED Provider: Scooter Martinez Discharge Problem: URI (upper respiratory infection), Closed rib fracture, Lactic acidemia, Abdominal pain Patient Disposition: Being Evaluated by Hospitalist Forms Stand Alone Forms: [facility] Prescriptions Prescriptions: No Action biotin 10 mg tablet 10 mg PO QAM Qty: 30 0RF ferrous sulfate [iron] 325 mg (65 mg iron) tablet 325 mg PO BID Qty: 60 0RF warfarin 2.5 mg tablet 2.5 mg PO .COMPLEX Qty: 90 3RF Protocol: Dose Management Condition: Saturday Dose/Route: 5 mg Instruction: 1 x 5 mg tablet Condition: Saturday Dose/Route: 2.5 mg Instruction: 1 x 2.5 mg tablet Condition: Saturday Dose/Route: 5 mg Instruction: 1 x 5 mg tablet Condition: Saturday Dose/Route: 5 mg Instruction: 1 x 5 mg tablet Condition: Dose/Route: 7.5 mg Instruction: 1 x 2.5 mg tablet, 1 x 5 mg tablet Condition: Saturday Dose/Route: 5 mg Instruction: 1 x 5 mg tablet Condition: Saturday Dose/Route: 5 mg Instruction: 1 x 5 mg tablet Protocol Text: Adjustment Start Date: 01/16/24 INR Value: 2.2 INR Date: 01/16/24 Recheck Date: 01/30/24 Rx Instructions: 2.5 mg orally as directed with the 5 mg; Patient states he takes 5mg on , Sat, Sat and Sat. He takes 2.5mg on Mondays and 7.5mg on . warfarin 5 mg tablet 5 mg PO DAILY Qty: 90 3RF Protocol: Dose Management Condition: Saturday Dose/Route: 5 mg Instruction: 1 x 5 mg tablet Condition: Saturday Dose/Route: 2.5 mg Instruction: 1 x 2.5 mg tablet Condition: Saturday Dose/Route: 5 mg Instruction: 1 x 5 mg tablet Condition: Saturday Dose/Route: 5 mg Instruction: 1 x 5 mg tablet Condition: Dose/Route: 7.5 mg Instruction: 1 x 2.5 mg tablet, 1 x 5 mg tablet Condition: Saturday Dose/Route: 5 mg Instruction: 1 x 5 mg tablet Condition: Saturday Dose/Route: 5 mg Instruction: 1 x 5 mg tablet Protocol Text: Adjustment Start Date: 01/16/24 INR Value: 2.2 INR Date: 01/16/24 Recheck Date: 01/30/24 Rx Instructions: Patient states he takes 5mg on , Sat, Sat and Sat. He takes 2.5mg on Mondays and 7.5mg on . insulin aspart U-100 [Novolog FlexPen U-100 Insulin] 100 unit/mL (3 mL) insulin pen 20 unit subcut DAILY Qty: 30 3RF lorazepam 0.5 mg tablet 0.5 mg PO DAILY PRN (Reason: anxiety) Qty: 30 1RF levothyroxine 175 mcg tablet 175 mcg PO QAM Qty: 90 3RF simvastatin 20 mg tablet 20 mg PO QAM Qty: 90 3RF spironolactone 50 mg tablet 50 mg PO QAM Qty: 90 3RF Rx Instructions: TAKE 1 TABLET BY MOUTH DAILY. bupropion HCl 150 mg tablet sustained-release 12 hr 150 mg PO BID Qty: 180 3RF Rx Instructions: TAKE 1 TABLET BY MOUTH TWICE DAILY. metformin 1,000 mg tablet 1,000 mg PO BID Qty: 180 3RF furosemide 20 mg tablet 20 mg PO QAM Qty: 90 3RF omeprazole 40 mg capsule,delayed release(DR/EC) 40 mg PO BID Qty: 180 3RF Rx Instructions: TAKE 1 CAPSULE BY MOUTH TWICE DAILY FOR STOMACH ACID. (DME) pen needle, diabetic [TechLITE Pen Needle] 31 gauge x 5/16" needle See Rx Instructions .Route Qty: 100 11RF Rx Instructions: use BID with insulin injections ondansetron 4 mg tablet,disintegrating 4 mg translingual Q6H PRN (Reason: NAUSEA/VOMITING) Qty: 30 4RF Rx Instructions: DISSOLVE 1 TABLET ON THE TONGUE EVERY 6 HOURS NEEDED. 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 See Rx Instructions .Route Rx Instructions: As directed cholecalciferol (vitamin D3) [Vitamin D3] 2,000 unit capsule 1,000 unit PO BID calcium carbonate [Calcium 600] 600 mg calcium (1,500 mg) Tablet 600 mg PO BID acetaminophen [Tylenol Extra Strength] 500 mg Tablet 500 mg PO Q6H PRN (Reason: Pain) insulin glargine [Lantus Solostar U-100 Insulin] 100 unit/mL (3 mL) insulin pen 4 unit subcut QAM Referrals Referrals: Neelam Cooper CRNP [Primary Care Provider] - Discharge Problem: URI (upper respiratory infection) Qualifiers: URI type: unspecified URI Qualified Code(s): J06.9 - Acute upper respiratory infection, unspecified Closed rib fracture Qualifiers: Encounter type: initial encounter Rib fracture type: multiple ribs Laterality: unspecified laterality Qualified Code(s): S22.49XA - Multiple fractures of ribs, unspecified side, initial encounter for closed fracture Abdominal pain Qualifiers: Abdominal location: unspecified location Qualified Code(s): R10.9 - Unspecified abdominal pain
[2024-01-30] MEDS: OPTIRAY 320 125ml IV ONE (21:01)
[2024-01-30] MEDS: PIPERACILLIN/TAZOBACTAM 4.5 GM/120 ML BAG IV ONE (21:21)
--- NOTE | 2024-01-30 23:07 | CT Scan Report ---
Exam(s): CTA CHEST IV Amt: 116 ml optiray 320 EXAM: CT Angiography Chest With Intravenous Contrast CLINICAL HISTORY: Evaluate for potential PE. TECHNIQUE: Axial computed tomographic angiography images of the chest with intravenous contrast. CTDI is 36.71 mGy and DLP is 694.88 mGy-cm. Automated exposure control was utilized for the study. A dose lowering technique was utilized adhering to the principles of ALARA. MIP reconstructed images were created and reviewed. COMPARISON: No relevant prior studies available. FINDINGS: Pulmonary arteries: No evidence for pulmonary embolism. Aorta: The thoracic aorta is normal in caliber without dissection or aneurysm. Atherosclerotic calcification noted. Lungs: Calcified granuloma noted involving the right lower lobe. No focal airspace consolidation identified. Thin-walled cyst noted centrally in the left lower lobe, measuring 2.1 cm. Pleural space: Unremarkable. No significant effusion. No pneumothorax. Heart: Cardiac chambers are normal in caliber. Prominent coronary artery calcification noted in the LAD and proximal circumflex distributions. Bones/joints: No acute fracture. No dislocation. Soft tissues: Gynecomastia. No other significant soft tissue abnormality. Lymph nodes: No significant lymphadenopathy. Calcified subcarinal and right hilar lymph nodes. Gallbladder and bile ducts: Pneumobilia noted throughout the liver. There appears to be resection of the right lobe of the liver with surgical clips noted about the IVC suggesting potential transplantation. Intraperitoneal space: Mild ascites noted in the left upper quadrant adjacent to the stomach and spleen. No obvious loculation, where included. IMPRESSION: 1. No evidence for pulmonary embolism. 2. No focal airspace consolidation identified. No pleural effusion or pneumothorax. 3. Mild ascites noted in the left upper quadrant adjacent to the stomach and spleen. No obvious loculation, where included. Electronically signed by: Olvin Garsia MD 01/30/24 23:06 PM
--- NOTE | 2024-01-30 23:56 | History & Physical Report ---
Date of Service January 30, 2024 Assessment & Plan (1) Enterocolitis: (2) Persistent cough for 3 weeks or longer: (3) Awaiting liver transplant: (4) Portal vein thrombosis: (5) Superior mesenteric vein thrombosis: (6) Hypertension: (7) Esophageal varices: (8) Controlled type 2 diabetes mellitus, with long-term current use of insulin: (9) Cirrhosis of liver: (10) Portal hypertension: Plan Enterocolitis- Patient presenting with more recent development of right lower quadrant pain, but had ongoing nausea, vomiting and diarrhea x 3 weeks off-and-on. CT scan of abdomen pelvis consistent with previous history of chronic ascites, enterocolitis, liver cirrhosis, history of BERNAL, esophageal varices, for which patient follows with [facility] and is on the liver transplant list Placed on daptomycin IV and Zosyn IV Status post 1 L normal saline bolus from the ED Hold spironolactone Follow clinical examination Portal vein thrombosis/superior mesenteric vein thrombosis- Continue warfarin, but since INR subtherapeutic at 1.6, a dose of Lovenox 1 mg/kg will be given subcu this evening, and dose and continue till INR is therapeutic Patient did have cough over the past few weeks, and due to subtherapeutic INR, CTA chest PE protocol was performed, that was negative for PE Diabetes mellitus- Hold metformin Continue glargine 4 units subcu in the morning Placed on Accu-Cheks with NovoLog SSI Rib fractures- Right anterior eighth and ninth rib fractures, along with left sixth rib fracture Likely secondary to coughing, but may also be contributing to his right sided chest and abdominal discomfort History of Present Illness Chief Complaint: The patient presents to the emergency department with complaint of persistent cough over the past 3 weeks for which a codeine cough syrup did not help, but taking lozenges did help somewhat. He also complains of pain in her right lower abdominal area. He reports also having some nausea, vomiting and loose stools, which actually gotten better over the past couple days. He also reports he has not been eating that much for the past couple days as well. Primary Care Provider: HATTIE Fleming The patient is a 68-year-old male past medical history including GERD, liver cirrhosis, esophageal varices, hypothyroidism, peripheral neuropathy, superior mesenteric vein thrombosis, portal vein thrombosis, BERNAL, on liver transplant list at [facility]. He finished a course of prednisone for approximately 3- week duration of cough, which was only relieved by keeping lozenges in his mouth, and was not relieved by codeine cough syrup. He also reports that the nausea, vomiting and diarrhea that happened over the past few weeks also improved over the past couple days since he had not been eating as much. He does continue to have intermittent right lower quadrant pain over the past few days. Allergies Allergy/AdvReac Type Severity Reaction Status Date / Time exenatide [From Byetta] AdvReac Intermediate Diarrhea Verified 01/30/24 20:52 Home Medications Medication Instructions Recorded Confirmed Type biotin 10 mg tablet 10 mg PO QAM #30 tabs 08/11/18 01/30/24 Rx ferrous sulfate 325 mg (65 mg 325 mg PO BID #60 tabs 08/11/18 01/30/24 Rx iron) tablet (iron) cyanocobalamin (vitamin B-12) 1,000 mcg PO QAM 11/25/18 01/30/24 History 1,000 mcg capsule calcium carbonate (Calcium 600) 600 mg PO BID 12/25/18 01/30/24 History cholecalciferol (vitamin D3) 50 1,000 unit PO BID 12/25/18 01/30/24 History mcg (2,000 unit) capsule (Vitamin D3) cannabidiol (CBD) extract 1 dose PO BID 01/09/19 01/30/24 History acetaminophen 500 mg tablet 500 mg PO Q6H PRN Pain 07/03/20 01/30/24 History (Tylenol Extra Strength) blood sugar diagnostic (OneTouch 02/10/21 01/20/24 History Ultra Blue Test Strip) sertraline 50 mg tablet 50 mg PO DAILY #90 tabs 12/31/22 01/30/24 Rx blood-glucose meter,continuous 01/03/23 01/20/24 History (Dexcom G7 Office Admin) warfarin 2.5 mg tablet 2.5 mg PO .COMPLEX #90 tabs 02/19/23 01/30/24 Rx warfarin 5 mg tablet 5 mg PO DAILY #90 tabs 02/19/23 01/30/24 Rx insulin aspart U-100 100 unit/mL 20 unit (0.2 mL) subcut DAILY #30 06/04/23 01/30/24 Rx (3 mL) subcutaneous pen (Novolog mL FlexPen U-100 Insulin aspart) lorazepam 0.5 mg tablet 0.5 mg PO DAILY PRN anxiety #30 08/19/23 01/30/24 Rx tabs levothyroxine 175 mcg tablet 175 mcg PO QAM #90 tabs 08/22/23 01/30/24 Rx simvastatin 20 mg tablet 20 mg PO QAM #90 tabs 08/22/23 01/30/24 Rx bupropion HCl 150 mg tablet,12 hr 150 mg PO BID #180 tabs 09/02/23 01/30/24 Rx sustained-release metformin 1,000 mg tablet 1,000 mg PO BID #180 tabs 09/02/23 01/30/24 Rx spironolactone 50 mg tablet 50 mg PO QAM #90 tabs 09/02/23 01/30/24 Rx furosemide 20 mg tablet 20 mg PO QAM #90 tabs 09/05/23 01/30/24 Rx omeprazole 40 mg capsule,delayed 40 mg PO BID #180 caps 09/09/23 01/30/24 Rx release pen needle, diabetic 31 gauge x #100 ea 10/09/23 01/20/24 Rx 5/16" (TechLITE Pen Needle) ondansetron 4 mg disintegrating 4 mg translingual Q6H PRN 01/13/24 01/30/24 Rx tablet NAUSEA/VOMITING #30 tabs insulin glargine 100 unit/mL (3 4 unit subcut QAM 01/30/24 01/30/24 History mL) subcutaneous pen (Lantus Solostar U-100 Insulin) Past Med/Surg History Problem List (Updated 01/31/24 @ 06:04 by Erasto Rojas MD) Enterocolitis Abdominal pain (Acute) Lactic acidemia (Acute) Closed rib fracture (Acute) URI (upper respiratory infection) (Acute) Persistent cough for 3 weeks or longer Cough in adult Right shoulder pain Bronchitis Nausea & vomiting Diarrhea Acute sinusitis Vitamin D deficiency Anticoagulant long-term use Hyperlipidemia (Chronic) Portal hypertension (Chronic) Controlled type 2 diabetes mellitus, with long-term current use of insulin (Chronic) Mild renal insufficiency (Chronic) Anxiety and depression (Chronic) Gastritis Bacteremia due to Gram-negative bacteria Hyperbilirubinemia Tremor Hypoglycemia Superior labrum [id number]-nl-vpybbexrd (SLAP) tear of left shoulder (Chronic) Weight loss Insomnia CKD (chronic kidney disease), stage III BERNAL (nonalcoholic steatohepatitis) (Acute) Awaiting liver transplant 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) Hypertension (Chronic) hx Peripheral neuropathy (Chronic) Hypothyroidism (Chronic) Esophageal varices hx banding GERD (gastroesophageal reflux disease) Cirrhosis of liver Medical History Decreased range of motion of left shoulder Left arm weakness COVID-19 virus infection 2021--mild symptoms "just a headache", no symptoms now Colitis Gram-negative bacteremia History of ascites DM type 2 (diabetes mellitus, type 2) IDDM GI bleed hx Anemia Post traumatic stress disorder Surgical History History of abdominal paracentesis multiple (last 2 years ago) History of surgery of liver Hepatic lobectomy (benign tumor) S/P debridement ABDOMINAL WOUND 2017 History of herniorrhaphy WITH MESH-2017 History of ERCP last 08/[address] [facility] Hx of hand surgery RT HAND/ARM SURGERY (METAL PLATE D/T FX) Hx of vasectomy History of esophagogastroduodenoscopy (EGD) History of colonoscopy History of cholecystectomy History of tooth extraction Family History Mother Diabetes Grandmother No problems noted. Grandmother (Maternal) Diabetes Family/Other Heart disease Cancer Hypertension Other No family history of adverse response to anesthesia Denies family history of Ovarian cancer Prostate cancer Myocardial infarction Breast cancer Colorectal cancer Social History Smoking Status: Former smoker Tobacco Type: Cigarettes and Smokeless Tobacco (Dip or Chew) Age Started Using Tobacco: 17; Age Quit Using Tobacco: 31; packs per day: 1.5; Cigarettes Per Day: QUIT 35 YEARs ago; Second Hand Exposure: No; Do You Dip or Chew Tobacco: No; Hx Alcohol Use: No Hx Substance Use: No Preferred Language: Serbian Communication Ability: Effective Hearing Ability: Normal Odd Bundle Worker Required: No Beliefs That Will Affect Care: None marital status: Current Living Situation: Spouse Current Living Situation Comment: lives with current occupational status: retired How many Children do You have: 3 Feels Safe at Home: Yes Safety Concerns: Feels Safe At This Time Childhood Exposure to Second-Hand Smoke: Yes Diet: regular caffeine: Yes Dental Care, Regularly: Yes Physical Activity Frequency: 3-4 Times per Week Seatbelt Use: never Sunscreen Use: No Assistive Devices: Denture - Upper and Denture - Lower Review of Systems Review of Systems: The patient denies chest pain, palpitations, lower extremity swelling, sore throat, fevers, chills, sweats, blood in urine or stool, dysuria, urinary frequency or urgency, lightheadedness, dizziness, headache, memory loss, loss of consciousness, rash, abnormal bruising or bleeding, imbalance, focal weakness, numbness or tingling in arms or legs, generalized arthralgias or myalgias, back or neck pain, or night sweats. The review of systems is otherwise negative other than for that already noted above, and at least 10 systems have been reviewed. Physical Exam Physical Exam: The patient is awake, alert and oriented 3, normocephalic and atraumatic, lying in bed and in no acute distress. HEENT--PERRL, EOMI, mucous membranes and oropharynx dry. Neck--supple. No JVD. No bruits. Thyroid normal, trachea midline, no adenopathy. Heart--normal S1 and S2. No murmurs, rubs or gallops. Lungs--clear bilaterally, no respiratory distress, no accessory muscle use. Abdomen--normal bowel sounds and soft. Nontender. Nondistended, no hernias or masses, no organomegaly. Extremities--no cyanosis or clubbing. No edema. Dermatologic--normal skin turgor, normal color, no abnormal lymph nodes, no rash. Neurologic--cranial nerves II through XII grossly intact. Rheumatologic--normal range of motion. Psychiatric--normal affect. Results & Data Results & Data Vital Signs (Past 12 Hours) Vital Signs Temp Pulse Pulse Resp BP BP Pulse Ox 01/30/24 22:00 71 17 109/73 95 01/30/24 20:49 74 01/30/24 20:43 76 112/72 01/30/24 19:00 79 18 94/73 L 97 01/30/24 17:50 79 18 112/69 95 01/30/24 17:24 77 01/30/24 15:52 36.8 C 89 18 110/72 96 O2 Del Method 01/30/24 22:00 Room Air 01/30/24 20:49 01/30/24 20:43 01/30/24 19:00 Room Air 01/30/24 17:50 Room Air 01/30/24 17:24 01/30/24 15:52 Room Air Laboratory Results Laboratory Results WBC 8.88 K/ul (4.8-10.8) 01/30/24 16:01 RBC 3.95 M/uL (4.70-6.10) L 01/30/24 16:01 Hgb 13.2 g/dl (14.0-18.0) L 01/30/24 16:01 Hct 40.0 % (42.0-52.0) L 01/30/24 16:01 MCV 101.3 fL (80.0-100.0) H 01/30/24 16:01 MCH 33.4 pg (25.0-34.0) 01/30/24 16:01 MCHC 33.0 g/dL (32.0-36.0) 01/30/24 16:01 RDW Std Deviation 58.7 fL (36.4-46.3) H 01/30/24 16:01 RDW Coeff of Debby 15.9 % (11.5-14.5) H 01/30/24 16:01 Plt Count 283 K/uL (130-400) 01/30/24 16:01 MPV 9.9 fL (9.4-12.4) 01/30/24 16:01 Immature Gran % (Auto) 0.5 % 01/30/24 16:01 Neut % (Auto) 67.1 % 01/30/24 16:01 Lymph % (Auto) 9.3 % 01/30/24 16:01 [place]air % (Auto) 16.9 % 01/30/24 16:01 Eos % (Auto) 5.7 % 01/30/24 16:01 Baso % (Auto) 0.5 % 01/30/24 16:01 Neut # (Auto) 5.96 K/uL (1.40-6.50) 01/30/24 16:01 Lymph # (Auto) 0.83 K/uL (1.20-3.40) L 01/30/24 16:01 T[place]air # (Auto) 1.50 K/uL (0.11-0.59) H 01/30/24 16:01 Eos # (Auto) 0.51 K/uL (0.00-0.50) H 01/30/24 16:01 Baso # (Auto) 0.04 K/uL (0.00-0.20) 01/30/24 16:01 Immature Gran # (Auto) 0.04 K/uL (0.01-0.20) 01/30/24 16:01 PT 16.3 Seconds (9.0-12.0) H 01/30/24 16:01 INR 1.6 (0.9-1.1) H 01/30/24 16:01 APTT 32 Seconds (21-31) H 01/30/24 16:01 PTT Ratio 1.2 01/30/24 16:01 Sodium 137 mmol/L (136-145) 01/30/24 16:01 Potassium 4.0 mmol/L (3.5-5.1) 01/30/24 16:01 Chloride 103 mmol/L (98-107) 01/30/24 16:01 Carbon Dioxide 28 mmol/L (21-32) 01/30/24 16:01 Anion Gap 6 (3-11) 01/30/24 16:01 BUN 9 mg/dl (6-23) 01/30/24 16:01 Creatinine 0.84 mg/dl (0.6-1.4) 01/30/24 16:01 Est Cr Clr Drug Dosing 88.1 ml/min 01/30/24 16:01 eGFR 95.58 01/30/24 16:01 BUN/Creatinine Ratio 10.7 (10-20) 01/30/24 16:01 Glucose 137 mg/dl (70-99(Fasting)) H 01/30/24 16:01 Lactate 2.5 mmol/L (0.4-2.0) H* 01/30/24 20:06 Calcium 8.7 mg/dl (8.6-10.3) 01/30/24 16:01 Total Bilirubin 2.0 mg/dl (0.2-1.0) H 01/30/24 16:01 AST 52 U/L (13-39) H 01/30/24 16:01 ALT 30 U/L (7-52) 01/30/24 16:01 Alkaline Phosphatase 140 U/L (34-104) H 01/30/24 16:01 Total Protein 7.1 gm/dl (6.0-8.3) 01/30/24 16:01 Albumin 2.9 gm/dl (3.4-5.0) L 01/30/24 16:01 Globulin 4.2 gm/dl (2.5-4.0) H 01/30/24 16:01 Albumin/Globulin Ratio 0.7 (0.9-2) L 01/30/24 16:01 Procalcitonin 0.08 ng/ml (0-0.5) 01/30/24 16:01 Adenovirus (PCR) Not Detected (NotDetected) 01/30/24 17:00 B. pertussis DNA (PCR) Not Detected (NotDetected) 01/30/24 17:00 B.parapertussis DNA PCR Not Detected (NotDetected) 01/30/24 17:00 C. pneumoniae DNA (PCR) Not Detected (NotDetected) 01/30/24 17:00 Coronavirus OC43 (PCR) Not Detected (NotDetected) 01/30/24 17:00 Coronavirus HKU1 (PCR) Not Detected (NotDetected) 01/30/24 17:00 Coronavirus 229E (PCR) Not Detected (NotDetected) 01/30/24 17:00 SARS-CoV-2 (PCR) Not Detected (NotDetected) 01/30/24 17:00 Coronavirus NL63 (PCR) Not Detected (NotDetected) 01/30/24 17:00 Human Metapneumovir PCR Not Detected (NotDetected) 01/30/24 17:00 Influenza Type A (PCR) Not Detected (NotDetected) 01/30/24 17:00 Influenza Type B (PCR) Not Detected (NotDetected) 01/30/24 17:00 M. pneumoniae (PCR) Not Detected (NotDetected) 01/30/24 17:00 Parainfluenza 1 (PCR) Not Detected (NotDetected) 01/30/24 17:00 Parainfluenza 2 (PCR) Not Detected (NotDetected) 01/30/24 17:00 Parainfluenza 3 (PCR) Not Detected (NotDetected) 01/30/24 17:00 Parainfluenza 4 (PCR) Not Detected (NotDetected) 01/30/24 17:00 RSV (PCR) Not Detected (NotDetected) 01/30/24 17:00 Entero/Rhino (PCR) Not Detected (NotDetected) 01/30/24 17:00 Impressions Ribs w/Chest X-Ray 01/30/24 16:00 EXAM: Radiographs of the Bilateral Ribs and AP Chest 3 or More Views INDICATION: Pain. TECHNIQUE: Frontal and oblique views of the bilateral ribs and frontal view of the chest. COMPARISON: Chest x-ray 01/28/2024 and 09/26/2022 FINDINGS: Lungs and pleural spaces: No consolidation or pulmonary edema. No pleural effusion or pneumothorax. Heart: No abnormality noted. No cardiomegaly. Mediastinum: Normal contour. Bones/joints: There is mild cortical offset of the anterior left sixth rib seen only on 1 view. On 1 image there may be nondisplaced fractures of the anterolateral right eighth and ninth ribs. Mild degenerative changes throughout the spine noted. Interval widening of the right AC joint noted compared to 2022. Tubes, lines and devices: TIPS catheter present. IMPRESSION: 1. Question nondisplaced fractures right anterior eighth and ninth and left sixth ribs. 2. No acute cardiopulmonary disease. 3. The right AC joint has widened since the study of 2022 and is not well-evaluated on the most recent prior exam. Correlate clinically for symptomatic AC separation. ACT 112: Negative or not required by law. Electronically signed by Tammi Carter 01-30-2024 5:00 PM Abdomen/Pelvis CT 01/30/24 16:49 EXAM: CT Abdomen and Pelvis With Intravenous Contrast INDICATION: Right lower quadrant pain while coughing. TECHNIQUE: Axial computed tomography images of the abdomen and pelvis with intravenous contrast. Sagittal and coronal reformatted images were created and reviewed. This CT exam was performed using one or more of the following dose reduction techniques: automated exposure control, adjustment of the mA and/or kV according to patient size, and/or use of iterative reconstruction technique. CONTRAST: 94ml of Optiray 320 was administered intravenously. COMPARISON: 12/20/2023 FINDINGS: Limitations: None. Lung bases and pleural space: Pleural space: Resolved trace pleural effusions. Mild atelectasis noted in the lung bases. Heart: No abnormality noted. Mediastinum: No abnormality noted. ABDOMEN: Liver: Stable cirrhotic appearance of the liver and changes of partial hepatectomy. Stable pneumobilia. Stable cyst in the periphery of the dome. No enhancing mass identified. Gallbladder and bile ducts: Stable common bile duct stent. Pancreas: Homogeneous enhancement. No mass, inflammation or ductal dilation. Spleen: Multiple granuloma noted in the spleen. Adrenals: No significant abnormality noted. Kidneys and ureters: Normal enhancement. No mass, hydronephrosis or visualized stone. Stomach and bowel: No change colonic and small bowel thickening involving numerous loops most severe in the transverse and left colon. No intestinal obstruction. No pneumatosis. PELVIS: Appendix: No findings to suggest acute appendicitis. Bladder: No filling defects to suggest mass or large stone. No inflammation. Reproductive: No abnormalities noted. ABDOMEN and PELVIS: Intraperitoneal space: Stable moderate ascites noted with stable mild septation. No organized collection to suggest abscess. No free air. Bones/joints: No acute changes. Soft tissues: Stable bilateral gynecomastia. No abdominal wall hernia noted. Vasculature: Stable varices including prominent perirectal varices. Atherosclerotic calcifications throughout the aorta without aneurysm or dissection. Lymph nodes: Stable scattered retroperitoneal nodes measuring up to 1 cm. IMPRESSION: 1. No interval change in enterocolitis which could be infectious, related to chronic ascitic irritation. Also consider low protein and vascular congestive states. 2. Stable ascites with mild septation. 3. Stable cirrhotic liver. ACT 112: Negative or not required by law. Electronically signed by Tammi Carter 01-30-2024 6:03 PM Chest CTA 01/30/24 20:39 Exam(s): CTA CHEST IV Amt: 116 ml optiray 320 EXAM: CT Angiography Chest With Intravenous Contrast CLINICAL HISTORY: Evaluate for potential PE. TECHNIQUE: Axial computed tomographic angiography images of the chest with intravenous contrast. CTDI is 36.71 mGy and DLP is 694.88 mGy-cm. Automated exposure control was utilized for the study. A dose lowering technique was utilized adhering to the principles of ALARA. MIP reconstructed images were created and reviewed. COMPARISON: No relevant prior studies available. FINDINGS: Pulmonary arteries: No evidence for pulmonary embolism. Aorta: The thoracic aorta is normal in caliber without dissection or aneurysm. Atherosclerotic calcification noted. Lungs: Calcified granuloma noted involving the right lower lobe. No focal airspace consolidation identified. Thin-walled cyst noted centrally in the left lower lobe, measuring 2.1 cm. Pleural space: Unremarkable. No significant effusion. No pneumothorax. Heart: Cardiac chambers are normal in caliber. Prominent coronary artery calcification noted in the LAD and proximal circumflex distributions. Bones/joints: No acute fracture. No dislocation. Soft tissues: Gynecomastia. No other significant soft tissue abnormality. Lymph nodes: No significant lymphadenopathy. Calcified subcarinal and right hilar lymph nodes. Gallbladder and bile ducts: Pneumobilia noted throughout the liver. There appears to be resection of the right lobe of the liver with surgical clips noted about the IVC suggesting potential transplantation. Intraperitoneal space: Mild ascites noted in the left upper quadrant adjacent to the stomach and spleen. No obvious loculation, where included. IMPRESSION: 1. No evidence for pulmonary embolism. 2. No focal airspace consolidation identified. No pleural effusion or pneumothorax. 3. Mild ascites noted in the left upper quadrant adjacent to the stomach and spleen. No obvious loculation, where included. Electronically signed by: Olvin Garsia MD 01/30/24 23:06 PM Code Status & VTE Plan Code Status Full code VTE Prophylaxis Plan VTE Prophylaxis will be ordered: Yes PG Care Time/CCT Total # of Minutes Spent Total Time Spent with Patient: Total time spent is greater than 50% in coordination of care (as documented) at patient's floor/unit and/or counseling patient: Coding Level of Care Code 50178 INT INP/OBS CARE 3/75MIN Diagnoses Enterocolitis K52.9 Persistent cough for 3 weeks or longer R05.3 Awaiting liver transplant Z76.82 Portal vein thrombosis I81 Superior mesenteric vein thrombosis K55.069 Essential hypertension I10 Hypertension type: essential hypertension Secondary esophageal varices without bleeding I85.10 Esophageal varices type: secondary Esophageal varices bleeding: without bleeding Controlled type 2 diabetes mellitus without complication, with long-term current use of insulin E11.9; Z79.4 Diabetes mellitus complication status: without complication Other cirrhosis of liver K74.69 Hepatic cirrhosis type: other cirrhosis Portal hypertension K76.6 (6) Hypertension Hypertension type: essential hypertension Qualified Code(s): I10 - Essential (primary) hypertension (7) Esophageal varices Esophageal varices type: secondary Esophageal varices bleeding: without bleeding Qualified Code(s): I85.10 - Secondary esophageal varices without bleeding (8) Controlled type 2 diabetes mellitus, with long-term current use of insulin Diabetes mellitus complication status: without complication Qualified Code(s): E11.9 - Type 2 diabetes mellitus without complications; Z79.4 - custodial (current) use of insulin (9) Cirrhosis of liver Hepatic cirrhosis type: other cirrhosis Qualified Code(s): K74.69 - Other cirrhosis of liver
[2024-01-31] MEDS: buPROPion SR 150 MG TABCR PO ONE (00:13)
[2024-01-31] MEDS: ENOXAPARIN 80 MG/0.8 ML SYR SQ ONE (00:13)
[2024-01-31] MEDS: PANTOprazole 40 MG TAB PO STA (00:13)
[2024-01-31] MEDS: DAPTOmycin 300 MG in SYRINGE 0 ML IV SCH (01:10)
[2024-01-31] MEDS ORDERED: DEXTROSE 50% 50 ML SYRINGE IV PRN (01:25)
[2024-01-31] MEDS ORDERED: GLUCOSE 10 TAB/TUBE PO PRN (01:25)
[2024-01-31] MEDS ORDERED: GLUCOSE 40% GEL 15 GM TUBE PO PRN (01:25)
[2024-01-31] MEDS ORDERED: CARBOHYDRATES FOR HYPOGLYCEMIA PO PRN (01:25)
[2024-01-31] MEDS ORDERED: GLUCAGON FOR INJ 1 MG VIAL SQ PRN (01:25)
[2024-01-31] MEDS: LORazepam 0.5 MG TAB PO PRN (02:11)
[2024-01-31] MEDS: MELATONIN 3 MG TAB PO PRN (02:11)
[2024-01-31] MEDS: LEVOTHYROXINE SODIUM 175 MCG TABLET PO SCH (05:46)
[2024-01-31] MEDS: PIPERACILLIN/TAZOBACTAM 4.5 GM/100 ML BAG IV SCH (05:49)
[2024-01-31 07:14] LABS: Basophils # (auto) 0.05 K/uL (0.00-0.20); Basophils % (auto) 0.7 %; Eosinophils # (auto) 0.52 K/uL (0.00-0.50); Eosinophils % (auto) 7.2 %; Hemoglobin 11.3 g/dl (14.0-18.0); Immature Granulocytes # (auto) 0.05 K/uL (0.01-0.20); Immature Granulocytes % (auto) 0.7 %; Lymphocytes # (auto) 0.92 K/uL (1.20-3.40); Lymphocytes % (auto) 12.8 %; Mean Corpuscular Hemoglobin 33.2 pg (25.0-34.0); Mean Corpuscular Hgb Conc 33.2 g/dL (32.0-36.0); Mean Platelet Volume 9.8 fL (9.4-12.4); Monocytes # (auto) 1.29 K/uL (0.11-0.59); Monocytes % (auto) 17.9 %; Neutrophils # (auto) 4.37 K/uL (1.40-6.50); Neutrophils % (auto) 60.7 %; Platelet Count 226 K/uL (130-400); RDW Coefficient of Variation 15.9 % (11.5-14.5); RDW Standard Deviation 57.8 fL (36.4-46.3)
[2024-01-31 07:35] LABS: Albumin Globulin Ratio 0.6 (0.9-2); Albumin Level 2.4 gm/dl (3.4-5.0); Calcium 7.8 mg/dl (8.6-10.3); Creatinine Clr Calc Pharmacy 90.3 ml/min; Globulin 3.8 gm/dl (2.5-4.0); Magnesium 1.5 mg/dl (1.7-2.4); Total Protein 6.2 gm/dl (6.0-8.3)
[2024-01-31] MEDS: CHOLECALCIFEROL 25 MCG (1000 UNITS) TAB PO SCH (08:06)
[2024-01-31] MEDS: CALCIUM CARBONATE 1250MG TAB PO SCH (08:06)
[2024-01-31] MEDS: SERTRALINE HCL 50 MG TABLET PO SCH (08:06)
[2024-01-31] MEDS: CYANOCOBALAMIN (B-12) 500 MCG TABLET PO SCH (08:06)
[2024-01-31] MEDS: ACETAMINOPHEN 500 MG TAB PO PRN (08:06)
[2024-01-31] MEDS: buPROPion SR 150 MG TABCR PO SCH (08:07)
[2024-01-31] MEDS: FERROUS SULFATE 325 MG TAB PO SCH (08:07)
[2024-01-31] MEDS: PANTOprazole 40 MG TAB PO SCH (08:07)
[2024-01-31 08:24] LABS: Estimated Average Glucose 143 mg/dl; Hemoglobin A1C 6.6 % (4.5-5.6)
[2024-01-31] MEDS: INSULIN ASPART PER UNIT CHARGE SC SCH (08:53)
[2024-01-31] MEDS: LANTUS PER UNIT CHARGE SQ SCH (08:53)
[2024-01-31] MEDS: MAGNESIUM SULFATE / D5W 1 GM/100 ML BAG IV SCH (08:53)
[2024-01-31 08:57] LABS: INR 1.8 (0.9-1.1); Prothrombin Time 18.5 Seconds (9.0-12.0)
[2024-01-31] MEDS ORDERED: FUROSEMIDE 20 MG TAB PO SCH (09:00)
[2024-01-31] MEDS ORDERED: SIMVASTATIN 20 MG TAB PO SCH (09:00)
[2024-01-31] MEDS ORDERED: CANNABIDIOL PO SCH (09:00)
[2024-01-31] MEDS ORDERED: ENOXAPARIN 1 MG/KG SC SCH (09:15)
--- NOTE | 2024-01-31 10:32 | Hospitalist Progress Note ---
Date of Service January 31, 2024 Assessment & Plan (1) Enterocolitis: (2) Awaiting liver transplant: (3) Portal vein thrombosis: (4) Superior mesenteric vein thrombosis: (5) Hypertension: (6) Esophageal varices: (7) Controlled type 2 diabetes mellitus, with long-term current use of insulin: (8) Cirrhosis of liver: (9) Portal hypertension: (10) Closed rib fracture: (11) BERNAL (nonalcoholic steatohepatitis): (12) Peripheral neuropathy: (13) Hypothyroidism: (14) Hyperbilirubinemia: (15) Post traumatic stress disorder: Plan 68-year-old male with past medical history of BERNAL/liver cirrhosis on liver transplant list at [facility], esophageal varices, portal vein and superior mesenteric vein thrombosis on anticoagulation with warfarin, PTSD, hypothyroidism, insulin-dependent type 2 diabetes mellitus with peripheral neuropathy who presents to the ED complaining of persistent dry cough for the past 3 weeks along with worsening right sided abdominal wall pain since recent fall about a week ago while walking his dog. #Enterocolitis Patient with loose stools since 6 weeks, states frequency is about 1-2 times a day Check stool culture CT abdomen pelvis shows evidence of enterocolitis, unclear if this is new or chronic White count is normal Patient is afebrile Lactic acid levels have normalized after starting IV antibiotics Continue IV daptomycin plus IV Zosyn Check MRSA screen #Recent fall with right-sided chest and abdominal wall trauma #Rib fractures Patient has ecchymosis around his right chest wall area with x-rays showing right eighth and ninth rib fractures and left sixth rib fracture Patient states Tylenol is not helping with the pain Patient is on warfarin for anticoagulation and hence avoid NSAIDs Discussed opiates: Patient states he is taking opiates for short-term in the past without any issues Trial of oxycodone 5 mg p.o. 3 times daily as needed for severe pain: Risk, benefits and side effects including risk of dependence and constipation discussed with patient. He verbalized understanding the risks Lidoderm patch PT/OT #Cough for approximately 3 weeks Patient was recently treated with prednisone and doxycycline antibiotics without much improvement in his cough Patient states cough syrup has not helped much either Suspect patient may have postinfectious cough CTA did not show any evidence of PE or consolidation Trial of albuterol inhaler #BERNAL/liver cirrhosis with ascites #Esophageal varices #Portal vein and superior mesenteric vein thrombosis Patient is on transplant at [facility] Patient states his blood pressure usually runs low with systolic in the 90s Continue PPI CT abdomen pelvis shows evidence of ascites: Abdominal exam is benign, no significant distention noted Resume spironolactone 50 mg daily Resume Lasix 20 mg daily INR subtherapeutic: Start Lovenox therapeutic dose until INR is 2 or greater Patient advised to discuss with GI team at [facility] regarding switching to apixaban I/O monitoring Daily weights #Insulin-dependent type 2 diabetes mellitus A1c 6.6 Continue Lantus 4 units subcutaneous daily Accu-Cheks before every meal and nightly with sliding scale insulin coverage Monitor glycemic control #Hypothyroidism Continue levothyroxine 175 mcg p.o. daily #PTSD Continue bupropion plus sertraline Ativan as needed #Hypomagnesemia Magnesium replacement Monitor magnesium levels CODE STATUS: Full code DVT prophylaxis: Patient on Lovenox plus warfarin Care plan discussed with patient, nursing staff Admission and Anticipated Discharge Date Admission Date: January 30, 2024 Subjective Patient seen and examined H&P reviewed Labs reviewed Radiology reviewed Patient complaining of right-sided rib pain He denies any fever or chills Patient states he has been having loose stools for over 6 weeks, no recent foreign travel. Patient states he has a loose bowel movement once a day Denies any nausea, vomiting, shortness of breath. Patient states he has been having a dry cough for over 3 weeks. He was recently treated with prednisone and doxycycline without any relief in his dry cough Patient sustained a recent fall on his right side when he was walking his dog He was evaluated by his PCP post fall Social history: Lives at home with his . 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 He is independent of ADLs. He denies tobacco use. He denies current alcohol use Physical Exam Physical Exam: General: No acute distress Psych: Awake and alert HEENT: Anicteric sclera, moist oral mucosa CVS: Regular rate and rhythm Lungs: Bilateral air entry, no wheezing noted Abdomen: Soft, right upper quadrant tenderness at the site of lower ribs noted with ecchymosis, no rebound, no guarding Ext: No lower extremity edema, no calf tenderness Neuro: No focal motor deficits noted Results & Data Results & Data Vital Signs (Past 12 Hours) Vital Signs Temp Pulse Pulse Pulse Resp BP BP 01/31/24 08:15 36.8 C 76 18 100/67 01/31/24 07:56 01/31/24 07:20 69 01/31/24 05:00 36.7 C 72 16 01/31/24 02:18 01/31/24 01:35 70 01/31/24 01:25 37.7 C H 76 16 01/31/24 01:09 72 18 105/68 01/31/24 00:00 71 18 BP Pulse Ox O2 Del Method 01/31/24 08:15 94 Room Air 01/31/24 07:56 Room Air 01/31/24 07:20 01/31/24 05:00 99/64 L 94 Room Air 01/31/24 02:18 Room Air 01/31/24 01:35 01/31/24 01:25 108/72 95 Room Air 01/31/24 01:09 98 Room Air 01/31/24 00:00 112/80 98 Room Air Laboratory Results Laboratory Results - last 24 hr 01/30/24 01/30/24 01/30/24 16:01 17:00 17:06 WBC 8.88 RBC 3.95 L Hgb 13.2 L Hct 40.0 L MCV 101.3 H MCH 33.4 MCHC 33.0 RDW Std Deviation 58.7 H RDW Coeff of Debby 15.9 H Plt Count 283 MPV 9.9 Immature Gran % (Auto) 0.5 Neut % (Auto) 67.1 Lymph % (Auto) 9.3 [place] % (Auto) 16.9 Eos % (Auto) 5.7 Baso % (Auto) 0.5 Neut # (Auto) 5.96 Lymph # (Auto) 0.83 L [place] # (Auto) 1.50 H Eos # (Auto) 0.51 H Baso # (Auto) 0.04 Immature Gran # (Auto) 0.04 PT 16.3 H INR 1.6 H APTT 32 H PTT Ratio 1.2 Sodium 137 Potassium 4.0 Chloride 103 Carbon Dioxide 28 Anion Gap 6 BUN 9 Creatinine 0.84 Est Cr Clr Drug Dosing 88.1 eGFR 95.58 BUN/Creatinine Ratio 10.7 Glucose 137 H POC Glucose Estimat Average Glucose Hemoglobin A1c Lactate 2.7 H* Calcium 8.7 Magnesium Total Bilirubin 2.0 H AST 52 H ALT 30 Alkaline Phosphatase 140 H Total Protein 7.1 Albumin 2.9 L Globulin 4.2 H Albumin/Globulin Ratio 0.7 L Procalcitonin 0.08 Adenovirus (PCR) Not Detected B. pertussis DNA (PCR) Not Detected B.parapertussis DNA PCR Not Detected C. pneumoniae DNA (PCR) Not Detected Coronavirus OC43 (PCR) Not Detected Coronavirus HKU1 (PCR) Not Detected Coronavirus 229E (PCR) Not Detected SARS-CoV-2 (PCR) Not Detected Coronavirus NL63 (PCR) Not Detected Human Metapneumovir PCR Not Detected Influenza Type A (PCR) Not Detected Influenza Type B (PCR) Not Detected M. pneumoniae (PCR) Not Detected Parainfluenza 1 (PCR) Not Detected Parainfluenza 2 (PCR) Not Detected Parainfluenza 3 (PCR) Not Detected Parainfluenza 4 (PCR) Not Detected RSV (PCR) Not Detected Entero/Rhino (PCR) Not Detected 01/30/24 01/31/24 01/31/24 20:06 06:40 08:02 WBC 7.20 RBC 3.40 L Hgb 11.3 L Hct 34.0 L MCV 100.0 MCH 33.2 MCHC 33.2 RDW Std Deviation 57.8 H RDW Coeff of Debby 15.9 H Plt Count 226 MPV 9.8 Immature Gran % (Auto) 0.7 Neut % (Auto) 60.7 Lymph % (Auto) 12.8 [place] % (Auto) 17.9 Eos % (Auto) 7.2 Baso % (Auto) 0.7 Neut # (Auto) 4.37 Lymph # (Auto) 0.92 L [place] # (Auto) 1.29 H Eos # (Auto) 0.52 H Baso # (Auto) 0.05 Immature Gran # (Auto) 0.05 PT INR APTT PTT Ratio Sodium 138 Potassium 4.0 Chloride 107 Carbon Dioxide 24 Anion Gap 7 BUN 9 Creatinine 0.82 Est Cr Clr Drug Dosing 90.3 eGFR 96.28 BUN/Creatinine Ratio 11.0 Glucose 106 H POC Glucose 98 Estimat Average Glucose 143 Hemoglobin A1c 6.6 H Lactate 2.5 H* Calcium 7.8 L Magnesium 1.5 L Total Bilirubin 2.0 H AST 42 H ALT 24 Alkaline Phosphatase 114 H Total Protein 6.2 Albumin 2.4 L Globulin 3.8 Albumin/Globulin Ratio 0.6 L Procalcitonin Adenovirus (PCR) B. pertussis DNA (PCR) B.parapertussis DNA PCR C. pneumoniae DNA (PCR) Coronavirus OC43 (PCR) Coronavirus HKU1 (PCR) Coronavirus 229E (PCR) SARS-CoV-2 (PCR) Coronavirus NL63 (PCR) Human Metapneumovir PCR Influenza Type A (PCR) Influenza Type B (PCR) M. pneumoniae (PCR) Parainfluenza 1 (PCR) Parainfluenza 2 (PCR) Parainfluenza 3 (PCR) Parainfluenza 4 (PCR) RSV (PCR) Entero/Rhino (PCR) 01/31/24 08:11 WBC RBC Hgb Hct MCV MCH MCHC RDW Std Deviation RDW Coeff of Debby Plt Count MPV Immature Gran % (Auto) Neut % (Auto) Lymph % (Auto) [place] % (Auto) Eos % (Auto) Baso % (Auto) Neut # (Auto) Lymph # (Auto) [place] # (Auto) Eos # (Auto) Baso # (Auto) Immature Gran # (Auto) PT 18.5 H INR 1.8 H APTT PTT Ratio Sodium Potassium Chloride Carbon Dioxide Anion Gap BUN Creatinine Est Cr Clr Drug Dosing eGFR BUN/Creatinine Ratio Glucose POC Glucose Estimat Average Glucose Hemoglobin A1c Lactate 1.3 Calcium Magnesium Total Bilirubin AST ALT Alkaline Phosphatase Total Protein Albumin Globulin Albumin/Globulin Ratio Procalcitonin Adenovirus (PCR) B. pertussis DNA (PCR) B.parapertussis DNA PCR C. pneumoniae DNA (PCR) Coronavirus OC43 (PCR) Coronavirus HKU1 (PCR) Coronavirus 229E (PCR) SARS-CoV-2 (PCR) Coronavirus NL63 (PCR) Human Metapneumovir PCR Influenza Type A (PCR) Influenza Type B (PCR) M. pneumoniae (PCR) Parainfluenza 1 (PCR) Parainfluenza 2 (PCR) Parainfluenza 3 (PCR) Parainfluenza 4 (PCR) RSV (PCR) Entero/Rhino (PCR) Diagnostic Findings Ribs w/Chest X-Ray 01/30/24 16:00 EXAM: Radiographs of the Bilateral Ribs and AP Chest 3 or More Views INDICATION: Pain. TECHNIQUE: Frontal and oblique views of the bilateral ribs and frontal view of the chest. COMPARISON: Chest x-ray 01/28/2024 and 09/26/2022 FINDINGS: Lungs and pleural spaces: No consolidation or pulmonary edema. No pleural effusion or pneumothorax. Heart: No abnormality noted. No cardiomegaly. Mediastinum: Normal contour. Bones/joints: There is mild cortical offset of the anterior left sixth rib seen only on 1 view. On 1 image there may be nondisplaced fractures of the anterolateral right eighth and ninth ribs. Mild degenerative changes throughout the spine noted. Interval widening of the right AC joint noted compared to 2022. Tubes, lines and devices: TIPS catheter present. IMPRESSION: 1. Question nondisplaced fractures right anterior eighth and ninth and left sixth ribs. 2. No acute cardiopulmonary disease. 3. The right AC joint has widened since the study of 2022 and is not well-evaluated on the most recent prior exam. Correlate clinically for symptomatic AC separation. ACT 112: Negative or not required by law. Electronically signed by Tammi Carter 01-30-2024 5:00 PM Abdomen/Pelvis CT 01/30/24 16:49 EXAM: CT Abdomen and Pelvis With Intravenous Contrast INDICATION: Right lower quadrant pain while coughing. TECHNIQUE: Axial computed tomography images of the abdomen and pelvis with intravenous contrast. Sagittal and coronal reformatted images were created and reviewed. This CT exam was performed using one or more of the following dose reduction techniques: automated exposure control, adjustment of the mA and/or kV according to patient size, and/or use of iterative reconstruction technique. CONTRAST: 94ml of Optiray 320 was administered intravenously. COMPARISON: 12/20/2023 FINDINGS: Limitations: None. Lung bases and pleural space: Pleural space: Resolved trace pleural effusions. Mild atelectasis noted in the lung bases. Heart: No abnormality noted. Mediastinum: No abnormality noted. ABDOMEN: Liver: Stable cirrhotic appearance of the liver and changes of partial hepatectomy. Stable pneumobilia. Stable cyst in the periphery of the dome. No enhancing mass identified. Gallbladder and bile ducts: Stable common bile duct stent. Pancreas: Homogeneous enhancement. No mass, inflammation or ductal dilation. Spleen: Multiple granuloma noted in the spleen. Adrenals: No significant abnormality noted. Kidneys and ureters: Normal enhancement. No mass, hydronephrosis or visualized stone. Stomach and bowel: No change colonic and small bowel thickening involving numerous loops most severe in the transverse and left colon. No intestinal obstruction. No pneumatosis. PELVIS: Appendix: No findings to suggest acute appendicitis. Bladder: No filling defects to suggest mass or large stone. No inflammation. Reproductive: No abnormalities noted. ABDOMEN and PELVIS: Intraperitoneal space: Stable moderate ascites noted with stable mild septation. No organized collection to suggest abscess. No free air. Bones/joints: No acute changes. Soft tissues: Stable bilateral gynecomastia. No abdominal wall hernia noted. Vasculature: Stable varices including prominent perirectal varices. Atherosclerotic calcifications throughout the aorta without aneurysm or dissection. Lymph nodes: Stable scattered retroperitoneal nodes measuring up to 1 cm. IMPRESSION: 1. No interval change in enterocolitis which could be infectious, related to chronic ascitic irritation. Also consider low protein and vascular congestive states. 2. Stable ascites with mild septation. 3. Stable cirrhotic liver. ACT 112: Negative or not required by law. Electronically signed by Tammi Carter 01-30-2024 6:03 PM Chest CTA 01/30/24 20:39 Exam(s): CTA CHEST IV Amt: 116 ml optiray 320 EXAM: CT Angiography Chest With Intravenous Contrast CLINICAL HISTORY: Evaluate for potential PE. TECHNIQUE: Axial computed tomographic angiography images of the chest with intravenous contrast. CTDI is 36.71 mGy and DLP is 694.88 mGy-cm. Automated exposure control was utilized for the study. A dose lowering technique was utilized adhering to the principles of ALARA. MIP reconstructed images were created and reviewed. COMPARISON: No relevant prior studies available. FINDINGS: Pulmonary arteries: No evidence for pulmonary embolism. Aorta: The thoracic aorta is normal in caliber without dissection or aneurysm. Atherosclerotic calcification noted. Lungs: Calcified granuloma noted involving the right lower lobe. No focal airspace consolidation identified. Thin-walled cyst noted centrally in the left lower lobe, measuring 2.1 cm. Pleural space: Unremarkable. No significant effusion. No pneumothorax. Heart: Cardiac chambers are normal in caliber. Prominent coronary artery calcification noted in the LAD and proximal circumflex distributions. Bones/joints: No acute fracture. No dislocation. Soft tissues: Gynecomastia. No other significant soft tissue abnormality. Lymph nodes: No significant lymphadenopathy. Calcified subcarinal and right hilar lymph nodes. Gallbladder and bile ducts: Pneumobilia noted throughout the liver. There appears to be resection of the right lobe of the liver with surgical clips noted about the IVC suggesting potential transplantation. Intraperitoneal space: Mild ascites noted in the left upper quadrant adjacent to the stomach and spleen. No obvious loculation, where included. IMPRESSION: 1. No evidence for pulmonary embolism. 2. No focal airspace consolidation identified. No pleural effusion or pneumothorax. 3. Mild ascites noted in the left upper quadrant adjacent to the stomach and spleen. No obvious loculation, where included. Electronically signed by: Olvin Garsia MD 01/30/24 23:06 PM PG Care Time/CCT Total # of Minutes Spent Total Time Spent with Patient: Total time spent is greater than 50% in coordination of care (as documented) at patient's floor/unit and/or counseling patient: Coding Level of Care Code 74618 SUB INP/OBS CARE 3/50MIN Diagnoses Enterocolitis K52.9 Awaiting liver transplant Z76.82 Portal vein thrombosis I81 Superior mesenteric vein thrombosis K55.069 Essential hypertension I10 Hypertension type: essential hypertension Secondary esophageal varices without bleeding I85.10 Esophageal varices bleeding: without bleeding Esophageal varices type: secondary Controlled type 2 diabetes mellitus without complication, with long-term current use of insulin E11.9; Z79.4 Diabetes mellitus complication status: without complication Other cirrhosis of liver K74.69 Hepatic cirrhosis type: other cirrhosis Portal hypertension K76.6 Closed rib fracture S22.49XA Encounter type: initial encounter Laterality: unspecified laterality Rib fracture type: multiple ribs BERNAL (nonalcoholic steatohepatitis) K75.81 Peripheral neuropathy G62.9 Hypothyroidism, unspecified type E03.9 Hypothyroidism type: unspecified Hyperbilirubinemia E80.6 Post traumatic stress disorder F43.10 (5) Hypertension Hypertension type: essential hypertension Qualified Code(s): I10 - Essential (primary) hypertension (6) Esophageal varices Esophageal varices bleeding: without bleeding Esophageal varices type: secondary Qualified Code(s): I85.10 - Secondary esophageal varices without bleeding (7) Controlled type 2 diabetes mellitus, with long-term current use of insulin Diabetes mellitus complication status: without complication Qualified Code(s): E11.9 - Type 2 diabetes mellitus without complications; Z79.4 - penitentiary (current) use of insulin (8) Cirrhosis of liver Hepatic cirrhosis type: other cirrhosis Qualified Code(s): K74.69 - Other cirrhosis of liver (10) Closed rib fracture Encounter type: initial encounter Laterality: unspecified laterality Rib fracture type: multiple ribs Qualified Code(s): S22.49XA - Multiple fractures of ribs, unspecified side, initial encounter for closed fracture (13) Hypothyroidism Hypothyroidism type: unspecified Qualified Code(s): E03.9 - Hypothyroidism, unspecified
[2024-01-31] MEDS: ENOXAPARIN 80 MG/0.8 ML SYR SQ SCH (11:00)
[2024-01-31] MEDS: oxyCODONE HCL IR 5 MG TAB (IMMEDIATE RELEASE) PO PRN (11:03)
[2024-01-31] MEDS: ALBUTEROL HFA 8 GM INHALER INH ONE (15:08)
[2024-01-31] MEDS: LIDOCAINE 5% 1 PATCH TD STA (15:28)
[2024-01-31] MEDS: WARFARIN SOD 2.5 MG TAB PO SCH (15:33)
[2024-01-31] MEDS: WARFARIN SOD 5 MG TAB PO SCH (15:33)
[2024-01-31] MEDS: SPIRONOLACTONE 25 MG TAB PO SCH (15:58)
[2024-01-31] MEDS: ALBUTEROL HFA 8 GM INHALER INH SCH (18:04)
[2024-02-01 06:46] LABS: Basophils # (auto) 0.08 K/uL (0.00-0.20); Basophils % (auto) 0.9 %; Eosinophils # (auto) 0.58 K/uL (0.00-0.50); Eosinophils % (auto) 6.8 %; Hematocrit (blood only) 33.9 % (42.0-52.0); Hemoglobin 11.5 g/dl (14.0-18.0); Immature Granulocytes # (auto) 0.06 K/uL (0.01-0.20); Immature Granulocytes % (auto) 0.7 %; Lymphocytes # (auto) 0.85 K/uL (1.20-3.40); Mean Corpuscular Hemoglobin 33.5 pg (25.0-34.0); Mean Corpuscular Hgb Conc 33.9 g/dL (32.0-36.0); Mean Corpuscular Volume 98.8 fL (80.0-100.0); Mean Platelet Volume 9.9 fL (9.4-12.4); Monocytes # (auto) 1.36 K/uL (0.11-0.59); Monocytes % (auto) 15.9 %; Neutrophils # (auto) 5.61 K/uL (1.40-6.50); Neutrophils % (auto) 65.7 %; Platelet Count 250 K/uL (130-400); RDW Coefficient of Variation 15.9 % (11.5-14.5); RDW Standard Deviation 56.8 fL (36.4-46.3); Red Blood Count 3.43 M/uL (4.70-6.10); White Blood Count 8.54 K/ul (4.8-10.8)
--- NOTE | 2024-02-01 07:10 | Electrocardiogram Report ---
Test Reason : Blood Pressure : */* mmHG Vent. Rate : 73 BPM Atrial Rate : 73 BPM P-R Int : 162 ms QRS Dur : 82 ms QT Int : 424 ms P-R-T Axes : 50 -28 40 degrees QTcB Int : 467 ms Normal sinus rhythm Low voltage QRS Nonspecific T wave abnormality Prolonged QT Abnormal ECG When compared with ECG of 26-Sep-2022 00:39, No significant change was found Confirmed by Fernando Tolentino ([id number]) on 02/01/2024 7:10:48 AM Referred By: REFERRED SELF Confirmed By: Fernando Tolentino
[2024-02-01 07:20] LABS: Albumin Globulin Ratio 0.6 (0.9-2); Albumin Level 2.5 gm/dl (3.4-5.0); BUN Creatinine Ratio 9.9 (10-20); Bilirubin,Total 1.7 mg/dl (0.2-1.0); Creatinine Clr Calc Pharmacy 73.3 ml/min; Globulin 3.9 gm/dl (2.5-4.0); Magnesium 1.8 mg/dl (1.7-2.4); Potassium 4.1 mmol/L (3.5-5.1); Total Protein 6.4 gm/dl (6.0-8.3)
[2024-02-01 07:32] LABS: INR 2.8 (0.9-1.1); Prothrombin Time 27.7 Seconds (9.0-12.0)
[2024-02-01] MEDS: FUROSEMIDE 20 MG TAB PO SCH (09:03)
[2024-02-01] MEDS: LIDOCAINE 5% 1 PATCH TD SCH (09:05)
[2024-02-01 09:38] LABS: Adenovirus F 40/41 PCR Not Detected (NotDetected); Astrovirus PCR Not Detected (NotDetected); Campylobacter PCR Not Detected (NotDetected); Cryptosporidium PCR Not Detected (NotDetected); Cyclospora cayetanensis PCR Not Detected (NotDetected); Entamoeba histolytica PCR Not Detected (NotDetected); Enteroaggregative E.coli(EAEC) Not Detected (NotDetected); Enteropathogenic E.coli (EPEC) Not Detected (NotDetected); Enterotoxigenic E.coli (ETEC) Not Detected (NotDetected); Giardia lamblia PCR Not Detected (NotDetected); Norovirus GI/GII PCR Not Detected (NotDetected); Plesiomonas shigelloides PCR Not Detected (NotDetected); Rotavirus A PCR Not Detected (NotDetected); Salmonella PCR Not Detected (NotDetected); Sapovirus PCR Not Detected (NotDetected); Shiga-like Toxin E.coli (STEC) Not Detected (NotDetected); Shigella/Enteroinvasive E.coli Not Detected (NotDetected); Vibrio cholerae PCR Not Detected (NotDetected); Vibrio species PCR Not Detected (NotDetected); Yersinia enterocolitica PCR Not Detected (NotDetected)
--- NOTE | 2024-02-01 10:03 | Hospitalist Progress Note ---
Date of Service February 01, 2024 Assessment & Plan (1) Enterocolitis: (2) Awaiting liver transplant: (3) Portal vein thrombosis: (4) Superior mesenteric vein thrombosis: (5) Hypertension: (6) Esophageal varices: (7) Controlled type 2 diabetes mellitus, with long-term current use of insulin: (8) Cirrhosis of liver: (9) Portal hypertension: (10) Closed rib fracture: (11) BERNAL (nonalcoholic steatohepatitis): (12) Peripheral neuropathy: (13) Hypothyroidism: (14) Hyperbilirubinemia: (15) Post traumatic stress disorder: Plan 68-year-old male with past medical history of BERNAL/liver cirrhosis on liver transplant list at [facility], esophageal varices, portal vein and superior mesenteric vein thrombosis on anticoagulation with warfarin, PTSD, hypothyroidism, insulin-dependent type 2 diabetes mellitus with peripheral neuropathy who presents to the ED complaining of persistent dry cough for the past 3 weeks along with worsening right sided abdominal wall pain since recent fall about a week ago while walking his dog. #Enterocolitis Patient with loose stools since 6 weeks, states frequency is about 1-2 times a day Stool culture is negative MRSA screen is negative CT abdomen pelvis shows evidence of enterocolitis, unclear if this is new or chronic White count is normal Patient is afebrile Lactic acid levels have normalized after starting IV antibiotics Stop IV daptomycin Stop IV Zosyn Switch to oral Levaquin/Flagyl for short course of antibiotics (total of 5 days) #Recent fall with right-sided chest and abdominal wall trauma #Rib fractures Patient has ecchymosis around his right chest wall area with x-rays showing right eighth and ninth rib fractures and left sixth rib fracture Patient states Tylenol is not helping with the pain Patient is on warfarin for anticoagulation and hence avoid NSAIDs Oxycodone 5 mg p.o. 3 times daily as needed for severe pain Lidoderm patch Awaiting PT/OT #Cough for approximately 3 weeks Patient was recently treated with prednisone and doxycycline antibiotics without much improvement in his cough Patient states cough syrup has not helped much either Suspect patient may have postinfectious cough CTA did not show any evidence of PE or consolidation Trial of nebulizers #BERNAL/liver cirrhosis with ascites #Esophageal varices #Portal vein and superior mesenteric vein thrombosis Patient is on transplant at [facility] Patient states his blood pressure usually runs low with systolic in the 90s Continue PPI CT abdomen pelvis shows evidence of ascites: Abdominal exam is benign, no significant distention noted Continue spironolactone 50 mg daily Continue Lasix 20 mg daily INR is 2.8: Stop Lovenox Patient advised to discuss with GI team at [facility] regarding switching to apixaban I/O monitoring Daily weights #Insulin-dependent type 2 diabetes mellitus A1c 6.6 Continue Lantus 4 units subcutaneous daily Accu-Cheks before every meal and nightly with sliding scale insulin coverage Monitor glycemic control #Hypothyroidism Continue levothyroxine 175 mcg p.o. daily #PTSD Continue bupropion plus sertraline Ativan as needed #Hypomagnesemia Magnesium replacement Monitor magnesium levels CODE STATUS: Full code DVT prophylaxis: Patient on warfarin Care plan discussed with patient, nursing staff Admission and Anticipated Discharge Date Admission Date: January 30, 2024 Subjective Patient seen and examined Labs reviewed Patient states pain is better with oxycodone and he slept better He still has cough, he felt the inhaler did help and requesting a nebulizer treatment to see if it will help with the cough He is bringing up yellow sputum He denies any fever, chills or abdominal pain He had 1 loose bowel movement this morning which is normal for him Physical Exam Physical Exam: General: No acute distress Psych: Awake and alert HEENT: Anicteric sclera, moist oral mucosa CVS: Regular rate and rhythm Lungs: Bilateral air entry, no wheezing noted, ecchymosis and tenderness at right anterior ribs Abdomen: Soft, nontender, no rebound, no guarding Ext: No lower extremity edema, no calf tenderness Neuro: No focal motor deficits noted Results & Data Results & Data Vital Signs (Past 12 Hours) Vital Signs Temp Pulse Pulse Resp BP Pulse Ox O2 Del Method 02/01/24 09:17 Room Air 02/01/24 08:20 36.8 C 111 H 20 102/64 96 Room Air 02/01/24 07:17 100 H 18 94 Room Air 02/01/24 07:13 92 H 02/01/24 03:53 36.6 C 97 H 18 109/77 92 Room Air 01/31/24 23:52 36.7 C 92 H 18 116/82 95 Room Air Laboratory Results Laboratory Results - last 24 hr 01/31/24 01/31/24 01/31/24 12:03 15:35 16:47 WBC RBC Hgb Hct MCV MCH MCHC RDW Std Deviation RDW Coeff of Debby Plt Count MPV Immature Gran % (Auto) Neut % (Auto) Lymph % (Auto) [place] % (Auto) Eos % (Auto) Baso % (Auto) Neut # (Auto) Lymph # (Auto) [facility] # (Auto) Eos # (Auto) Baso # (Auto) Immature Gran # (Auto) PT INR Sodium Potassium Chloride Carbon Dioxide Anion Gap BUN Creatinine Est Cr Clr Drug Dosing eGFR BUN/Creatinine Ratio Glucose POC Glucose 151 H 135 H Calcium Magnesium Total Bilirubin AST ALT Alkaline Phosphatase Total Protein Albumin Globulin Albumin/Globulin Ratio Nasal Screen MRSA (PCR) Negative Stl C. cayetanensis PCR Stool Rotavirus A PCR Stl Adenov F PCR Stool Astrovirus (PCR) Stool Campylobacter PCR Stool Cryptosporidium PCR Stl E.coli Shiga Tox PCR Stl Enterotoxigenic E PCR Stool EPEC (PCR) Stool EAEC (PCR) Stl E. histolytica PCR Stool Giardia Lamblia PCR Stool Salmonella PCR Stool Sapovirus (PCR) Stl P. shigelloides PCR Stl Shigella/EIEC PCR St Y.enterocolitica PCR Stool Vibrio (PCR) Stl Vibrio cholerae PCR Stl Norovirus GI/GII PCR 01/31/24 02/01/24 02/01/24 19:56 05:40 07:51 WBC 8.54 RBC 3.43 L Hgb 11.5 L Hct 33.9 L MCV 98.8 MCH 33.5 MCHC 33.9 RDW Std Deviation 56.8 H RDW Coeff of Debby 15.9 H Plt Count 250 MPV 9.9 Immature Gran % (Auto) 0.7 Neut % (Auto) 65.7 Lymph % (Auto) 10.0 [facility] % (Auto) 15.9 Eos % (Auto) 6.8 Baso % (Auto) 0.9 Neut # (Auto) 5.61 Lymph # (Auto) 0.[address] # (Auto) 1.36 H Eos # (Auto) 0.58 H Baso # (Auto) 0.08 Immature Gran # (Auto) 0.06 PT 27.7 H INR 2.8 H Sodium 137 Potassium 4.1 Chloride 107 Carbon Dioxide 23 Anion Gap 7 BUN 10 Creatinine 1.01 Est Cr Clr Drug Dosing 73.3 eGFR 81.51 BUN/Creatinine Ratio 9.9 L Glucose 118 H POC Glucose 107 H 115 H Calcium 8.0 L Magnesium 1.8 Total Bilirubin 1.7 H AST 41 H ALT 24 Alkaline Phosphatase 111 H Total Protein 6.4 Albumin 2.5 L Globulin 3.9 Albumin/Globulin Ratio 0.6 L Nasal Screen MRSA (PCR) Stl C. cayetanensis PCR Stool Rotavirus A PCR Stl Adenov F 40/41 PCR Stool Astrovirus (PCR) Stool Campylobacter PCR Stool Cryptosporidium PCR Stl E.coli Shiga Tox PCR Stl Enterotoxigenic E PCR Stool EPEC (PCR) Stool EAEC (PCR) Stl E. histolytica PCR Stool Giardia Lamblia PCR Stool Salmonella PCR Stool Sapovirus (PCR) Stl P. shigelloides PCR Stl Shigella/EIEC PCR St Y.enterocolitica PCR Stool Vibrio (PCR) Stl Vibrio cholerae PCR Stl Norovirus GI/GII PCR 02/01/24 07:52 WBC RBC Hgb Hct MCV MCH MCHC RDW Std Deviation RDW Coeff of Debby Plt Count MPV Immature Gran % (Auto) Neut % (Auto) Lymph % (Auto) [facility] % (Auto) Eos % (Auto) Baso % (Auto) Neut # (Auto) Lymph # (Auto) [facility] # (Auto) Eos # (Auto) Baso # (Auto) Immature Gran # (Auto) PT INR Sodium Potassium Chloride Carbon Dioxide Anion Gap BUN Creatinine Est Cr Clr Drug Dosing eGFR BUN/Creatinine Ratio Glucose POC Glucose Calcium Magnesium Total Bilirubin AST ALT Alkaline Phosphatase Total Protein Albumin Globulin Albumin/Globulin Ratio Nasal Screen MRSA (PCR) Stl C. cayetanensis PCR Not Detected Stool Rotavirus A PCR Not Detected Stl Adenov F 40 PCR Not Detected Stool Astrovirus (PCR) Not Detected Stool Campylobacter PCR Not Detected Stool Cryptosporidium PCR Not Detected Stl E.coli Shiga Tox PCR Not Detected Stl Enterotoxigenic E PCR Not Detected Stool EPEC (PCR) Not Detected Stool EAEC (PCR) Not Detected Stl E. histolytica PCR Not Detected Stool Giardia Lamblia PCR Not Detected Stool Salmonella PCR Not Detected Stool Sapovirus (PCR) Not Detected Stl P. shigelloides PCR Not Detected Stl Shigella/EIEC PCR Not Detected St Y.enterocolitica PCR Not Detected Stool Vibrio (PCR) Not Detected Stl Vibrio cholerae PCR Not Detected Stl Norovirus GI/GII PCR Not Detected PG Care Time/CCT Total # of Minutes Spent Total Time Spent with Patient: Total time spent is greater than 50% in coordination of care (as documented) at patient's floor/unit and/or counseling patient: Coding Level of Care Code 17480 SUB INP/OBS CARE 50MIN Diagnoses Enterocolitis K52.9 Awaiting liver transplant Z76.82 Portal vein thrombosis I81 Superior mesenteric vein thrombosis K55.069 Essential hypertension I10 Hypertension type: essential hypertension Secondary esophageal varices without bleeding I85.10 Esophageal varices bleeding: without bleeding Esophageal varices type: secondary Controlled type 2 diabetes mellitus without complication, with long-term current use of insulin E11.9; Z79.4 Diabetes mellitus complication status: without complication Other cirrhosis of liver K74.69 Hepatic cirrhosis type: other cirrhosis Portal hypertension K76.6 Closed rib fracture S22.49XA Encounter type: initial encounter Laterality: unspecified laterality Rib fracture type: multiple ribs BERNAL (nonalcoholic steatohepatitis) K75.81 Peripheral neuropathy G62.9 Hypothyroidism, unspecified type E03.9 Hypothyroidism type: unspecified Hyperbilirubinemia E80.6 Post traumatic stress disorder F43.10 (5) Hypertension Hypertension type: essential hypertension Qualified Code(s): I10 - Essential (primary) hypertension (6) Esophageal varices Esophageal varices bleeding: without bleeding Esophageal varices type: secondary Qualified Code(s): I85.10 - Secondary esophageal varices without bleeding (7) Controlled type 2 diabetes mellitus, with long-term current use of insulin Diabetes mellitus complication status: without complication Qualified Code(s): E11.9 - Type 2 diabetes mellitus without complications; Z79.4 - predatory animal exterminator (current) use of insulin (8) Cirrhosis of liver Hepatic cirrhosis type: other cirrhosis Qualified Code(s): K74.69 - Other cirrhosis of liver (10) Closed rib fracture Encounter type: initial encounter Laterality: unspecified laterality Rib fracture type: multiple ribs Qualified Code(s): S22.49XA - Multiple fractures of ribs, unspecified side, initial encounter for closed fracture (13) Hypothyroidism Hypothyroidism type: unspecified Qualified Code(s): E03.9 - Hypothyroidism, unspecified
[2024-02-01] MEDS: LEVALBUTEROL HCL 0.63 MG/3 ML NEB NEB STA (10:50)
[2024-02-01] MEDS: LEVALBUTEROL HCL 0.63 MG/3 ML NEB NEB SCH (13:11)
[2024-02-01] MEDS: metroNIDAZOLE 500 MG TAB PO SCH (13:20)
[2024-02-01] MEDS: levoFLOXacin 250 MG TABLET PO SCH (13:20)
[2024-02-01] MEDS: WARFARIN SOD 0.5 MG TAB PO SCH (17:40)
[2024-02-01] MEDS: WARFARIN SOD 3 MG TAB PO SCH (17:41)
[2024-02-02 07:03] LABS: Basophils # (auto) 0.04 K/uL (0.00-0.20); Basophils % (auto) 0.5 %; Eosinophils # (auto) 0.45 K/uL (0.00-0.50); Eosinophils % (auto) 5.4 %; Hematocrit (blood only) 31.3 % (42.0-52.0); Hemoglobin 10.6 g/dl (14.0-18.0); Immature Granulocytes # (auto) 0.03 K/uL (0.01-0.20); Immature Granulocytes % (auto) 0.4 %; Lymphocytes % (auto) 9.5 %; Mean Corpuscular Hemoglobin 34.3 pg (25.0-34.0); Mean Corpuscular Hgb Conc 33.9 g/dL (32.0-36.0); Mean Corpuscular Volume 101.3 fL (80.0-100.0); Mean Platelet Volume 9.7 fL (9.4-12.4); Monocytes # (auto) 1.43 K/uL (0.11-0.59); Neutrophils # (auto) 5.65 K/uL (1.40-6.50); Neutrophils % (auto) 67.2 %; Platelet Count 215 K/uL (130-400); RDW Standard Deviation 57.9 fL (36.4-46.3); Red Blood Count 3.09 M/uL (4.70-6.10)
[2024-02-02 07:24] LABS: Albumin Globulin Ratio 0.7 (0.9-2); Albumin Level 2.4 gm/dl (3.4-5.0); BUN Creatinine Ratio 9.2 (10-20); Bilirubin,Total 1.4 mg/dl (0.2-1.0); Calcium 8.1 mg/dl (8.6-10.3); Creatinine Clr Calc Pharmacy 85.1 ml/min; Globulin 3.6 gm/dl (2.5-4.0); Magnesium 1.7 mg/dl (1.7-2.4); Potassium 4.1 mmol/L (3.5-5.1)
[2024-02-02 07:30] LABS: INR 3.9 (0.9-1.1); Prothrombin Time 37.7 Seconds (9.0-12.0)
[2024-02-02] MEDS: PROPRANOLOL HCL 10 MG TAB PO SCH (09:33)
--- NOTE | 2024-02-02 09:50 | Hospitalist Progress Note ---
Date of Service February 02, 2024 Assessment & Plan (1) Enterocolitis: (2) Awaiting liver transplant: (3) Portal vein thrombosis: (4) Superior mesenteric vein thrombosis: (5) Hypertension: (6) Esophageal varices: (7) Controlled type 2 diabetes mellitus, with long-term current use of insulin: (8) Cirrhosis of liver: (9) Portal hypertension: (10) Closed rib fracture: (11) BERNAL (nonalcoholic steatohepatitis): (12) Peripheral neuropathy: (13) Hypothyroidism: (14) Hyperbilirubinemia: (15) Post traumatic stress disorder: Plan 68-year-old male with past medical history of BERNAL/liver cirrhosis on liver transplant list at [facility], esophageal varices, portal vein and superior mesenteric vein thrombosis on anticoagulation with warfarin, PTSD, hypothyroidism, insulin-dependent type 2 diabetes mellitus with peripheral neuropathy who presents to the ED complaining of persistent dry cough for the past 3 weeks along with worsening right sided abdominal wall pain since recent fall about a week ago while walking his dog. #Enterocolitis Patient with loose stools since 6 weeks, states frequency is about 1-2 times a day Stool culture is negative MRSA screen is negative CT abdomen pelvis shows evidence of enterocolitis, unclear if this is new or chronic White count is normal Patient is afebrile Lactic acid levels have normalized after starting IV antibiotics Patient was initially treated with IV daptomycin and IV Zosyn for 2 days and swi tch to oral Levaquin/Flagyl on 02/01/2024 for short course of antibiotics (total of 5 days) until 02/03/2024 #Recent fall with right-sided chest and abdominal wall trauma #Rib fractures Patient has ecchymosis around his right chest wall area with x-rays showing right eighth and ninth rib fractures and left sixth rib fracture Patient states Tylenol is not helping with the pain Patient is on warfarin for anticoagulation and hence avoid NSAIDs Oxycodone 5 mg p.o. 3 times daily as needed for severe pain Lidoderm patch #Cough for approximately 3 weeks Patient was recently treated with prednisone and doxycycline antibiotics without much improvement in his cough Patient states cough syrup has not helped much either Suspect patient may have postinfectious cough CTA did not show any evidence of PE or consolidation Trial of nebulizers for bronchospasm which has helped Will discharge home on inhaler #BERNAL/liver cirrhosis with ascites #Esophageal varices/gastropathy #Portal vein and superior mesenteric vein thrombosis Patient is on transplant at [facility] Patient states his blood pressure usually runs low with systolic in the 90s Continue PPI CT abdomen pelvis shows evidence of ascites: Abdominal exam is benign, no significant distention noted Continue spironolactone 50 mg daily Continue Lasix 20 mg daily INR is 3.9: Hold warfarin today, likely from antibiotics Start propranolol 10 mg p.o. twice daily (patient taking Coreg once a day at home) Patient advised to discuss with GI team at [facility] regarding switching to apixaban I/O monitoring Daily weights #Insulin-dependent type 2 diabetes mellitus A1c 6.6 Continue Lantus 4 units subcutaneous daily Accu-Cheks before every meal and nightly with sliding scale insulin coverage Monitor glycemic control #Hypothyroidism Continue levothyroxine 175 mcg p.o. daily #PTSD Continue bupropion plus sertraline Ativan as needed #Hypomagnesemia Levels improved with magnesium replacement. CODE STATUS: Full code DVT prophylaxis: Patient on warfarin Discharge planning likely tomorrow if medically stable based on INR Care plan discussed with patient, nursing staff Admission and Anticipated Discharge Date Admission Date: January 30, 2024 Subjective Patient seen and examined Labs reviewed Patient states cough is improved after using nebulizer with loosening of phlegm: Reports yellow phlegm Denies any hemoptysis, hematemesis or nosebleeds Patient had 1 loose stool which is normal for him Patient states his right sided chest/rib pain is better with oxycodone Denies any nausea, vomiting or abdominal pain Denies any fever or chills Overall feels much better today Physical Exam Physical Exam: General: No acute distress Psych: Awake and alert HEENT: Anicteric sclera, moist oral mucosa CVS: Regular rate and rhythm Lungs: Bilateral air entry, no wheezing noted, ecchymosis and tenderness at right anterior ribs Abdomen: Soft, nontender, no rebound, no guarding Ext: No lower extremity edema, no calf tenderness Neuro: No focal motor deficits noted Results & Data Results & Data Vital Signs (Past 12 Hours) Vital Signs Temp Pulse Pulse Resp BP Pulse Ox O2 Del Method 02/02/24 08:44 36.7 C 102 H 17 114/73 97 Room Air 02/02/24 07:26 113 H 16 98 Room Air Laboratory Results Laboratory Results - last 24 hr 02/01/24 02/01/24 02/01/24 11:48 16:29 21:15 WBC RBC Hgb Hct MCV MCH MCHC RDW Std Deviation RDW Coeff of Debby Plt Count MPV Immature Gran % (Auto) Neut % (Auto) Lymph % (Auto) [place] % (Auto) Eos % (Auto) Baso % (Auto) Neut # (Auto) Lymph # (Auto) [place] # (Auto) Eos # (Auto) Baso # (Auto) Immature Gran # (Auto) PT INR Sodium Potassium Chloride Carbon Dioxide Anion Gap BUN Creatinine Est Cr Clr Drug Dosing eGFR BUN/Creatinine Ratio Glucose POC Glucose 162 H 149 H 89 Calcium Magnesium Total Bilirubin AST ALT Alkaline Phosphatase Total Protein Albumin Globulin Albumin/Globulin Ratio 02/02/24 06:20 WBC 8.40 RBC 3.09 L Hgb 10.6 L Hct 31.3 L MCV 101.3 H MCH 34.3 H MCHC 33.9 RDW Std Deviation 57.9 H RDW Coeff of Debby 16.0 H Plt Count 215 MPV 9.7 Immature Gran % (Auto) 0.4 Neut % (Auto) 67.2 Lymph % (Auto) 9.5 [place] % (Auto) 17.0 Eos % (Auto) 5.4 Baso % (Auto) 0.5 Neut # (Auto) 5.65 Lymph # (Auto) 0.80 L [place] # (Auto) 1.43 H Eos # (Auto) 0.45 Baso # (Auto) 0.04 Immature Gran # (Auto) 0.03 PT 37.7 H INR 3.9 H Sodium 141 Potassium 4.1 Chloride 109 H Carbon Dioxide 26 Anion Gap 6 BUN 8 Creatinine 0.87 Est Cr Clr Drug Dosing 85.1 eGFR 94.57 BUN/Creatinine Ratio 9.2 L Glucose 122 H POC Glucose Calcium 8.1 L Magnesium 1.7 Total Bilirubin 1.4 H AST 39 ALT 21 Alkaline Phosphatase 115 H Total Protein 6.0 Albumin 2.4 L Globulin 3.6 Albumin/Globulin Ratio 0.7 L PG Care Time/CCT Total # of Minutes Spent Total Time Spent with Patient: Total time spent is greater than 50% in coordination of care (as documented) at patient's floor/unit and/or counseling patient: Coding Level of Care Code 20326 SUB INP/OBS CARE 2/35MIN Diagnoses Enterocolitis K52.9 Awaiting liver transplant Z76.82 Portal vein thrombosis I81 Superior mesenteric vein thrombosis K55.069 Essential hypertension I10 Hypertension type: essential hypertension Secondary esophageal varices without bleeding I85.10 Esophageal varices bleeding: without bleeding Esophageal varices type: secondary Controlled type 2 diabetes mellitus without complication, with long-term current use of insulin E11.9; Z79.4 Diabetes mellitus complication status: without complication Other cirrhosis of liver K74.69 Hepatic cirrhosis type: other cirrhosis Portal hypertension K76.6 Closed rib fracture S22.49XA Encounter type: initial encounter Laterality: unspecified laterality Rib fracture type: multiple ribs BERNAL (nonalcoholic steatohepatitis) K75.81 Peripheral neuropathy G62.9 Hypothyroidism, unspecified type E03.9 Hypothyroidism type: unspecified Hyperbilirubinemia E80.6 Post traumatic stress disorder F43.10 (5) Hypertension Hypertension type: essential hypertension Qualified Code(s): I10 - Essential (primary) hypertension (6) Esophageal varices Esophageal varices bleeding: without bleeding Esophageal varices type: secondary Qualified Code(s): I85.10 - Secondary esophageal varices without bleeding (7) Controlled type 2 diabetes mellitus, with long-term current use of insulin Diabetes mellitus complication status: without complication Qualified Code(s): E11.9 - Type 2 diabetes mellitus without complications; Z79.4 - care home (current) use of insulin (8) Cirrhosis of liver Hepatic cirrhosis type: other cirrhosis Qualified Code(s): K74.69 - Other cirrhosis of liver (10) Closed rib fracture Encounter type: initial encounter Laterality: unspecified laterality Rib fracture type: multiple ribs Qualified Code(s): S22.49XA - Multiple fractures of ribs, unspecified side, initial encounter for closed fracture (13) Hypothyroidism Hypothyroidism type: unspecified Qualified Code(s): E03.9 - Hypothyroidism, unspecified
[2024-02-02] MEDS: ONDANSETRON INJ 2 MG/ML 2 ML VIAL IV PRN (15:07)
[2024-02-03 06:07] LABS: Hemoglobin 10.1 g/dl (14.0-18.0); Mean Corpuscular Hemoglobin 33.2 pg (25.0-34.0); Mean Corpuscular Hgb Conc 32.6 g/dL (32.0-36.0); Mean Platelet Volume 9.8 fL (9.4-12.4); Platelet Count 219 K/uL (130-400); RDW Coefficient of Variation 16.3 % (11.5-14.5); RDW Standard Deviation 58.6 fL (36.4-46.3); Red Blood Count 3.04 M/uL (4.70-6.10); White Blood Count 8.76 K/ul (4.8-10.8)
[2024-02-03 06:31] LABS: Albumin Globulin Ratio 0.7 (0.9-2); Albumin Level 2.4 gm/dl (3.4-5.0); BUN Creatinine Ratio 8.4 (10-20); Bilirubin,Total 1.3 mg/dl (0.2-1.0); Calcium 8.2 mg/dl (8.6-10.3); Creatinine Clr Calc Pharmacy 77.9 ml/min; Globulin 3.5 gm/dl (2.5-4.0); Potassium 4.2 mmol/L (3.5-5.1); Total Protein 5.9 gm/dl (6.0-8.3)
[2024-02-03 06:33] LABS: INR 4.3 (0.9-1.1); Prothrombin Time 40.9 Seconds (9.0-12.0)
[2024-02-03 08:38] VITALS: TEMP 97.5
[2024-02-03 09:10] VITALS: BP 105/71
[2024-02-03 13:16] VITALS: PULSE 70; RESP 16; O2SAT 96
--- NOTE | 2024-02-03 13:45 | Discharge Summary ---
Discharge Summary Date of Service February 03, 2024 Principal Dx & Hospital Course #1 = Principal Diagnosis (1) Enterocolitis: (2) Awaiting liver transplant: (3) Portal vein thrombosis: (4) Superior mesenteric vein thrombosis: (5) Hypertension: (6) Esophageal varices: (7) Controlled type 2 diabetes mellitus, with long-term current use of insulin: (8) Cirrhosis of liver: (9) Portal hypertension: (10) Closed rib fracture: (11) BERNAL (nonalcoholic steatohepatitis): (12) Peripheral neuropathy: (13) Hypothyroidism: (14) Hyperbilirubinemia: (15) Post traumatic stress disorder: Plan 68-year-old male with past medical history of BERNLA/liver cirrhosis on liver transplant list at [facility], esophageal varices, portal vein and superior mesenteric vein thrombosis on anticoagulation with warfarin, PTSD, hypothyroidis m, insulin-dependent type 2 diabetes mellitus with peripheral neuropathy who presents to the ED complaining of persistent dry cough for the past 3 weeks along with worsening right sided abdominal wall pain since recent fall about a week ago while walking his dog. #Enterocolitis Patient with loose stools since 6 weeks, states frequency is about 1-2 times a day Stool culture is negative MRSA screen is negative CT abdomen pelvis shows evidence of enterocolitis, unclear if this is new or chronic White count is normal Patient is afebrile Lactic acid levels have normalized after starting IV antibiotics Patient was initially treated with IV daptomycin and IV Zosyn for 2 days and switch to oral Levaquin/Flagyl on 02/01/2024 for short course of antibiotics (total of 5 days) until 02/03/2024 #Recent fall with right-sided chest and abdominal wall trauma #Rib fractures Patient has ecchymosis around his right chest wall area with x-rays showing ri ght eighth and ninth rib fractures and left sixth rib fracture Patient states Tylenol is not helping with the pain Patient is on warfarin for anticoagulation and hence avoid NSAIDs Oxycodone 5 mg p.o. 3 times daily as needed for severe pain: I have given the patient a short supply of oxycodone and asked him to follow-up with his PCP if the pain persists. I have also advised him not to drive or use heavy machinery while using oxycodone/sedating medications/Ativan as needed. Patient verbalized understanding instructions. Have also discussed the risks, benefits and side effects of opiates/oxycodone in great detail with the patient #Cough for approximately 3 weeks Patient was recently treated with prednisone and doxycycline antibiotics without much improvement in his cough Patient states cough syrup has not helped much either Suspect patient may have postinfectious cough CTA did not show any evidence of PE or consolidation Trial of nebulizers for bronchospasm which has helped Will discharge home on inhaler #BERNAL/liver cirrhosis with ascites #Esophageal varices/gastropathy #Portal vein and superior mesenteric vein thrombosis Patient is on transplant at [facility] Patient states his blood pressure usually runs low with systolic in the 90s Continue PPI CT abdomen pelvis shows evidence of ascites: Abdominal exam is benign, no sig nificant distention noted Continue spironolactone 50 mg daily Continue Lasix 20 mg daily INR today is 4.3. No active bleeding. H&H is stable. Likely from antibiotic use I have asked the patient to get his INR repeated through his anticoagulation clinic tomorrow and wait for further instructions from anticoagulation clinic tomorrow after INR is resulted for further recommendations regarding resuming warfarin Continue propranolol 10 mg p.o. twice daily instead of Coreg (patient taking Coreg once a day at home) Patient advised to discuss with GI team at [facility] regarding switching to apixaban #Insulin-dependent type 2 diabetes mellitus A1c 6.6 Continue home insulin regimen I have held metformin for now given the fact the patient has liver cirrhosis and asked him to follow-up with his PCP/GI team at [facility] regarding advice on using metformin and liver cirrhosis #Hypothyroidism Continue levothyroxine 175 mcg p.o. daily Outpatient follow-up with PCP #PTSD Continue bupropion plus sertraline Ativan as needed Outpatient follow with PCP #Hypomagnesemia Levels improved with magnesium replacement. Outpatient follow-up with PCP for monitoring Patient seen and examined today. He is stable for discharge home. I have gone over the discharge care plan, medications and follow-up with the patient in detail and answered all his questions. Patient verbalized understanding instructions. This discharge took greater than 30 minutes to coordinate Admission HPI Per Admitting Provider The patient is a 68-year-old male past medical history including GERD, liver cirrhosis, esophageal varices, hypothyroidism, peripheral neuropathy, superior mesenteric vein thrombosis, portal vein thrombosis, BERNAL, on liver transplant list at [facility]. He finished a course of prednisone for approximately 3- week duration of cough, which was only relieved by keeping lozenges in his mouth, and was not relieved by codeine cough syrup. He also reports that the nausea, vomiting and diarrhea that happened over the past few weeks also improved over the past couple days since he had not been eating as much. He does continue to have intermittent right lower quadrant pain over the past few days. Discharge Exam General: No acute distress Psych: Awake and alert HEENT: Anicteric sclera, moist oral mucosa CVS: Regular rate and rhythm Lungs: Bilateral air entry, no wheezing noted, ecchymosis and tenderness at right anterior ribs Abdomen: Soft, nontender, no rebound, no guarding Ext: No lower extremity edema, no calf tenderness Neuro: No focal motor deficits noted Discharge Plan Discharge Items Patient Disposition: Home - Self-Care Reason For Visit: ENTEROCOLITIS, ASCITIC IRRITATION, COUGH Discharge Diagnosis: #Enterocolitis #Recent fall with right-sided chest and abdominal wall trauma #Rib fractures #Cough for approximately 3 weeks #BERNAL/liver cirrhosis with ascites #Esophageal varices/gastropathy #Portal vein and superior mesenteric vein thrombosis #Insulin-dependent type 2 diabetes mellitus #Hypothyroidism #PTSD Activity: Resume your previous activity Activity Comment: No driving while taking sedating medications including oxycodone Non-emergency contact: Primary Care Provider Call non-emergency contact if: you have any medication questions, your symptoms worsen, your pain is not controlled and you have a fever Follow-up/Referrals: Neelam Cooper CRNP [Primary Care Provider] - Diet: Carb Consistent or DM2 and Low Sodium (2gm) Addtl Attending Provider Instructions: DISCHARGE INSTRUCTION TO PATIENT/FAMILY: Follow-up with your primary care provider within 1 week regarding: Posthospital discharge, medication review, medication refills and follow-up on all your medical problems Please take all your discharge medications, discharge information and discharge instructions to all your doctors appointments. Avoid all NSAIDs including ibuprofen, Motrin, Advil, Aleve, naproxen, meloxicam, Toradol, diclofenac Please call and discuss with your GI team at [facility] regarding switching from warfarin to apixaban. Your PCP can facilitate this discussion with GI team at [facility]. Please follow-up with your PCP Your INR today on discharge is 4.3. Please hold warfarin dose today and have your INR rechecked tomorrow at the anticoagulation clinic and follow-up with them tomorrow regarding warfarin dosing Labs through PCP in 1 week: CBC, CMP, MG Stand-Alone Forms: My [facility], Smoking Cessation Medications and DC Order Prescriptions: New propranolol 10 mg Tablet 10 mg PO BID Qty: 60 0RF oxycodone 5 mg Tablet 5 mg PO TID PRN (Reason: severe pain (scale score 7-10)) Qty: 15 0RF albuterol sulfate 90 mcg/actuation HFA aerosol inhaler 2 inh inhalation Q6H PRN (Reason: shortness of breath or wheezing) Qty: 8.5 0RF Continued biotin 10 mg tablet 10 mg PO QAM Qty: 30 0RF ferrous sulfate [iron] 325 mg (65 mg iron) tablet 325 mg PO BID Qty: 60 0RF insulin aspart U-100 [Novolog FlexPen U-100 Insulin] 100 unit/mL (3 mL) insulin pen 20 unit subcut DAILY Qty: 30 3RF lorazepam 0.5 mg tablet 0.5 mg PO DAILY PRN (Reason: anxiety) Qty: 30 1RF levothyroxine 175 mcg tablet 175 mcg PO QAM Qty: 90 3RF simvastatin 20 mg tablet 20 mg PO QAM Qty: 90 3RF spironolactone 50 mg tablet 50 mg PO QAM Qty: 90 3RF Rx Instructions: TAKE 1 TABLET BY MOUTH DAILY. bupropion HCl 150 mg tablet sustained-release 12 hr 150 mg PO BID Qty: 180 3RF Rx Instructions: TAKE 1 TABLET BY MOUTH TWICE DAILY. furosemide 20 mg tablet 20 mg PO QAM Qty: 90 3RF omeprazole 40 mg capsule,delayed release(DR/EC) 40 mg PO BID Qty: 180 3RF Rx Instructions: TAKE 1 CAPSULE BY MOUTH TWICE DAILY FOR STOMACH ACID. (DME) pen needle, diabetic [TechLITE Pen Needle] 31 gauge x 5/16" needle See Rx Instructions .Route Qty: 100 11RF Rx Instructions: use BID with insulin injections ondansetron 4 mg tablet,disintegrating 4 mg translingual Q6H PRN (Reason: NAUSEA/VOMITING) Qty: 30 4RF Rx Instructions: DISSOLVE 1 TABLET ON THE TONGUE EVERY 6 HOURS NEEDED. cyanocobalamin (vitamin B-12) 1,000 mcg capsule 1,000 mcg PO QAM cannabidiol (CBD) extract 1 dose PO BID (DME) OneTouch Ultra Blue Test Strip Strip See Rx Instructions .ROUTE .MEDSUPPLY Dose Instruction: As directed Rx Instructions: TEST 3 TIMES A DAY FOR MULTIPLE DAILY INSULIN INJECTIONS sertraline 50 mg tablet 50 mg PO DAILY Qty: 90 3RF Rx Instructions: will cont on welbutrin (DME) Dexcom G7 Anthropology Department Chair Misc See Rx Instructions .Route Rx Instructions: As directed cholecalciferol (vitamin D3) [Vitamin D3] 2,000 unit capsule 1,000 unit PO BID calcium carbonate [Calcium 600] 600 mg calcium (1,500 mg) Tablet 600 mg PO BID acetaminophen [Tylenol Extra Strength] 500 mg Tablet 500 mg PO Q6H PRN (Reason: Pain) insulin glargine [Lantus Solostar U-100 Insulin] 100 unit/mL (3 mL) insulin pen 4 unit subcut QAM Held warfarin 2.5 mg tablet 2.5 mg PO .COMPLEX Qty: 90 3RF Hold Instructions: Resume on 02/04/24. Based on repeat INR on 02/04/2024 and warfarin dose recommendations from anticoagulation clinic Protocol: Dose Management Condition: Saturday Dose/Route: 5 mg Instruction: 1 x 5 mg tablet Condition: Saturday Dose/Route: 2.5 mg Instruction: 1 x 2.5 mg tablet Condition: Saturday Dose/Route: 5 mg Instruction: 1 x 5 mg tablet Condition: Saturday Dose/Route: 5 mg Instruction: 1 x 5 mg tablet Condition: Dose/Route: 7.5 mg Instruction: 1 x 2.5 mg tablet, 1 x 5 mg tablet Condition: Saturday Dose/Route: 5 mg Instruction: 1 x 5 mg tablet Condition: Saturday Dose/Route: 5 mg Instruction: 1 x 5 mg tablet Protocol Text: Adjustment Start Date: 01/16/24 INR Value: 2.2 INR Date: 01/16/24 Recheck Date: 01/30/24 Rx Instructions: 2.5 mg orally as directed with the 5 mg; Patient states he takes 5mg on , Sat, Sat and Sat. He takes 2.5mg on Mondays and 7.5mg on . warfarin 5 mg tablet 5 mg PO DAILY Qty: 90 3RF Hold Instructions: Resume on 02/04/24. Based on repeat INR on 02/04/2024 and warfarin dose recommendations from anticoagulation clinic Protocol: Dose Management Condition: Saturday Dose/Route: 5 mg Instruction: 1 x 5 mg tablet Condition: Saturday Dose/Route: 2.5 mg Instruction: 1 x 2.5 mg tablet Condition: Saturday Dose/Route: 5 mg Instruction: 1 x 5 mg tablet Condition: Saturday Dose/Route: 5 mg Instruction: 1 x 5 mg tablet Condition: Dose/Route: 7.5 mg Instruction: 1 x 2.5 mg tablet, 1 x 5 mg tablet Condition: Saturday Dose/Route: 5 mg Instruction: 1 x 5 mg tablet Condition: Saturday Dose/Route: 5 mg Instruction: 1 x 5 mg tablet Protocol Text: Adjustment Start Date: 01/16/24 INR Value: 2.2 INR Date: 01/16/24 Recheck Date: 01/30/24 Rx Instructions: Patient states he takes 5mg on , Sat, Sat and Sat. He takes 2.5mg on Mondays and 7.5mg on . metformin 1,000 mg tablet 1,000 mg PO BID Qty: 180 3RF Hold Instructions: Resume on 02/10/24. Please resume after discussing with your PCP whether to continue with metformin given the fact that you have liver cirrhosis Discharge Orders: Discharge Order (Routine); Ordered 02/03/24 Ordered By: Anil Betts/Other Patient Handouts: Managing Type 2 Diabetes, Special Foot [facility] for Diabetes Admission Data Admit Date/Time: 01/30/24 23:55 Attending Provider: Anil Rich Admit Provider: Erasto Rojas Primary Care Provider: Neelam Cooper Other Providers: Erasto Rojas Other Interventions: Discharge Summary Assessment (RN) Last Done: 02/03/24 13:08 Hospital Stay Data Consultations 01/30/24 23:25 ED Decision to Admit Stat Diagnostic Imagining Performed 01/30/24 16:49 CT abd pelvis IV con only Stat 01/30/24 20:39 CT angio chest PE protocol Stat Laboratory Results - last 48 hr 02/01/24 02/01/24 02/02/24 16:29 21:15 06:20 WBC 8.40 RBC 3.09 L Hgb 10.6 L Hct 31.3 L MCV 101.3 H MCH 34.3 H MCHC 33.9 RDW Std Deviation 57.9 H RDW Coeff of Debby 16.0 H Plt Count 215 MPV 9.7 Immature Gran % (Auto) 0.4 Neut % (Auto) 67.2 Lymph % (Auto) 9.5 Griggs % (Auto) 17.0 Eos % (Auto) 5.4 Baso % (Auto) 0.5 Neut # (Auto) 5.65 Lymph # (Auto) 0.80 L Griggs # (Auto) 1.43 H Eos # (Auto) 0.45 Baso # (Auto) 0.04 Immature Gran # (Auto) 0.03 PT 37.7 H INR 3.9 H Sodium 141 Potassium 4.1 Chloride 109 H Carbon Dioxide 26 Anion Gap 6 BUN 8 Creatinine 0.87 Est Cr Clr Drug Dosing 85.1 eGFR 94.57 BUN/Creatinine Ratio 9.2 L Glucose 122 H POC Glucose 149 H 89 Calcium 8.1 L Magnesium 1.7 Total Bilirubin 1.4 H AST 39 ALT 21 Alkaline Phosphatase 115 H Total Protein 6.0 Albumin 2.4 L Globulin 3.6 Albumin/Globulin Ratio 0.7 L 02/02/24 02/02/24 02/02/24 11:42 16:34 20:33 WBC RBC Hgb Hct MCV MCH MCHC RDW Std Deviation RDW Coeff of Debby Plt Count MPV Immature Gran % (Auto) Neut % (Auto) Lymph % (Auto) Griggs % (Auto) Eos % (Auto) Baso % (Auto) Neut # (Auto) Lymph # (Auto) Griggs # (Auto) Eos # (Auto) Baso # (Auto) Immature Gran # (Auto) PT INR Sodium Potassium Chloride Carbon Dioxide Anion Gap BUN Creatinine Est Cr Clr Drug Dosing eGFR BUN/Creatinine Ratio Glucose POC Glucose 106 H 112 H 135 H Calcium Magnesium Total Bilirubin AST ALT Alkaline Phosphatase Total Protein Albumin Globulin Albumin/Globulin Ratio 02/03/24 02/03/24 02/03/24 05:47 07:26 11:44 WBC 8.76 RBC 3.04 L Hgb 10.1 L Hct 31.0 L MCV 102.0 H MCH 33.2 MCHC 32.6 RDW Std Deviation 58.6 H RDW Coeff of Debby 16.3 H Plt Count 219 MPV 9.8 Immature Gran % (Auto) Neut % (Auto) Lymph % (Auto) Griggs % (Auto) Eos % (Auto) Baso % (Auto) Neut # (Auto) Lymph # (Auto) Griggs # (Auto) Eos # (Auto) Baso # (Auto) Immature Gran # (Auto) PT 40.9 H INR 4.3 H Sodium 137 Potassium 4.2 Chloride 107 Carbon Dioxide 27 Anion Gap 3 BUN 8 Creatinine 0.95 Est Cr Clr Drug Dosing 77.9 eGFR 87.73 BUN/Creatinine Ratio 8.4 L Glucose 102 H POC Glucose 99 132 H Calcium 8.2 L Magnesium Total Bilirubin 1.3 H AST 39 ALT 20 Alkaline Phosphatase 119 H Total Protein 5.9 L Albumin 2.4 L Globulin 3.5 Albumin/Globulin Ratio 0.7 L Ribs w/Chest X-Ray 01/30/24 16:00 EXAM: Radiographs of the Bilateral Ribs and AP Chest 3 or More Views INDICATION: Pain. TECHNIQUE: Frontal and oblique views of the bilateral ribs and frontal view of the chest. COMPARISON: Chest x-ray 01/28/2024 and 09/26/2022 FINDINGS: Lungs and pleural spaces: No consolidation or pulmonary edema. No pleural effusion or pneumothorax. Heart: No abnormality noted. No cardiomegaly. Mediastinum: Normal contour. Bones/joints: There is mild cortical offset of the anterior left sixth rib seen only on 1 view. On 1 image there may be nondisplaced fractures of the anterolateral right eighth and ninth ribs. Mild degenerative changes throughout the spine noted. Interval widening of the right AC joint noted compared to 2022. Tubes, lines and devices: TIPS catheter present. IMPRESSION: 1. Question nondisplaced fractures right anterior eighth and ninth and left sixth ribs. 2. No acute cardiopulmonary disease. 3. The right AC joint has widened since the study of 2022 and is not well-evaluated on the most recent prior exam. Correlate clinically for symptomatic AC separation. ACT 112: Negative or not required by law. Electronically signed by Tammi Carter 01-30-2024 5:00 PM Abdomen/Pelvis CT 01/30/24 16:49 EXAM: CT Abdomen and Pelvis With Intravenous Contrast INDICATION: Right lower quadrant pain while coughing. TECHNIQUE: Axial computed tomography images of the abdomen and pelvis with intravenous contrast. Sagittal and coronal reformatted images were created and reviewed. This CT exam was performed using one or more of the following dose reduction techniques: automated exposure control, adjustment of the mA and/or kV according to patient size, and/or use of iterative reconstruction technique. CONTRAST: 94ml of Optiray 320 was administered intravenously. COMPARISON: 12/20/2023 FINDINGS: Limitations: None. Lung bases and pleural space: Pleural space: Resolved trace pleural effusions. Mild atelectasis noted in the lung bases. Heart: No abnormality noted. Mediastinum: No abnormality noted. ABDOMEN: Liver: Stable cirrhotic appearance of the liver and changes of partial hepatectomy. Stable pneumobilia. Stable cyst in the periphery of the dome. No enhancing mass identified. Gallbladder and bile ducts: Stable common bile duct stent. Pancreas: Homogeneous enhancement. No mass, inflammation or ductal dilation. Spleen: Multiple granuloma noted in the spleen. Adrenals: No significant abnormality noted. Kidneys and ureters: Normal enhancement. No mass, hydronephrosis or visualized stone. Stomach and bowel: No change colonic and small bowel thickening involving numerous loops most severe in the transverse and left colon. No intestinal obstruction. No pneumatosis. PELVIS: Appendix: No findings to suggest acute appendicitis. Bladder: No filling defects to suggest mass or large stone. No inflammation. Reproductive: No abnormalities noted. ABDOMEN and PELVIS: Intraperitoneal space: Stable moderate ascites noted with stable mild septation. No organized collection to suggest abscess. No free air. Bones/joints: No acute changes. Soft tissues: Stable bilateral gynecomastia. No abdominal wall hernia noted. Vasculature: Stable varices including prominent perirectal varices. Atherosclerotic calcifications throughout the aorta without aneurysm or dissection. Lymph nodes: Stable scattered retroperitoneal nodes measuring up to 1 cm. IMPRESSION: 1. No interval change in enterocolitis which could be infectious, related to chronic ascitic irritation. Also consider low protein and vascular congestive states. 2. Stable ascites with mild septation. 3. Stable cirrhotic liver. ACT 112: Negative or not required by law. Electronically signed by Tammi Carter 01-30-2024 6:03 PM Chest CTA 01/30/24 20:39 Exam(s): CTA CHEST IV Amt: 116 ml optiray 320 EXAM: CT Angiography Chest With Intravenous Contrast CLINICAL HISTORY: Evaluate for potential PE. TECHNIQUE: Axial computed tomographic angiography images of the chest with intravenous contrast. CTDI is 36.71 mGy and DLP is 694.88 mGy-cm. Automated exposure control was utilized for the study. A dose lowering technique was utilized adhering to the principles of ALARA. MIP reconstructed images were created and reviewed. COMPARISON: No relevant prior studies available. FINDINGS: Pulmonary arteries: No evidence for pulmonary embolism. Aorta: The thoracic aorta is normal in caliber without dissection or aneurysm. Atherosclerotic calcification noted. Lungs: Calcified granuloma noted involving the right lower lobe. No focal airspace consolidation identified. Thin-walled cyst noted centrally in the left lower lobe, measuring 2.1 cm. Pleural space: Unremarkable. No significant effusion. No pneumothorax. Heart: Cardiac chambers are normal in caliber. Prominent coronary artery calcification noted in the LAD and proximal circumflex distributions. Bones/joints: No acute fracture. No dislocation. Soft tissues: Gynecomastia. No other significant soft tissue abnormality. Lymph nodes: No significant lymphadenopathy. Calcified subcarinal and right hilar lymph nodes. Gallbladder and bile ducts: Pneumobilia noted throughout the liver. There appears to be resection of the right lobe of the liver with surgical clips noted about the IVC suggesting potential transplantation. Intraperitoneal space: Mild ascites noted in the left upper quadrant adjacent to the stomach and spleen. No obvious loculation, where included. IMPRESSION: 1. No evidence for pulmonary embolism. 2. No focal airspace consolidation identified. No pleural effusion or pneumothorax. 3. Mild ascites noted in the left upper quadrant adjacent to the stomach and spleen. No obvious loculation, where included. Electronically signed by: Olvin Garsia MD 01/30/24 23:06 PM Discharge Instructions Given to Patient (Per Discharging Provider) DISCHARGE INSTRUCTION TO PATIENT/FAMILY: Follow-up with your primary care provider within 1 week regarding: Posthospital discharge, medication review, medication refills and follow-up on all your medical problems Please take all your discharge medications, discharge information and discharge instructions to all your doctors appointments. Avoid all NSAIDs including ibuprofen, Motrin, Advil, Aleve, naproxen, meloxicam, Toradol, diclofenac Please call and discuss with your GI team at [facility] regarding switching from warfarin to apixaban. Your PCP can facilitate this discussion with GI team at [facility]. Please follow-up with your PCP Your INR today on discharge is 4.3. Please hold warfarin dose today and have your INR rechecked tomorrow at the anticoagulation clinic and follow-up with them tomorrow regarding warfarin dosing Labs through PCP in 1 week: CBC, CMP, MG Total Time Total Time Spent Total Time Spent (In Minutes): 38 minutes Coding Level of Care Code 07500 INP/OBS DISCH >30 MIN Diagnoses Enterocolitis K52.9 Awaiting liver transplant Z76.82 Portal vein thrombosis I81 Superior mesenteric vein thrombosis K55.069 Essential hypertension I10 Hypertension type: essential hypertension Secondary esophageal varices without bleeding I85.10 Esophageal varices type: secondary Esophageal varices bleeding: without bleeding Controlled type 2 diabetes mellitus without complication, with long-term current use of insulin E11.9; Z79.4 Diabetes mellitus complication status: without complication Other cirrhosis of liver K74.69 Hepatic cirrhosis type: other cirrhosis Portal hypertension K76.6 Closed rib fracture S22.49XA Encounter type: initial encounter Laterality: unspecified laterality Rib fracture type: multiple ribs BERNAL (nonalcoholic steatohepatitis) K75.81 Peripheral neuropathy G62.9 Hypothyroidism, unspecified type E03.9 Hypothyroidism type: unspecified Hyperbilirubinemia E80.6 Post traumatic stress disorder F43.10
== END 2024-02-03 17:04 | disposition home or self-care (01) | DRG 391 ==
LOC: ED 15:49 → SUATTDRO 23:55 → 2N 23:55 → 3E 02-01 11:44

== ENCOUNTER 2024-05-31 15:22 | Inpatient (IN) ==
[2024-05-31] MEDS: ONDANSETRON INJ 2 MG/ML 2 ML VIAL IV STA (16:02)
[2024-05-31] MEDS: SODIUM CHLORIDE 0.9% 1,000 ML IV SCH (16:02)
[2024-05-31] MEDS: SODIUM CHLORIDE 0.9% 500 ML IV ONE (16:02)
[2024-05-31 16:14] LABS: Hematocrit (blood only) 40.8 % (42.0-52.0); Hemoglobin 13.7 g/dl (14.0-18.0); Mean Corpuscular Hemoglobin 34.1 pg (25.0-34.0); Mean Corpuscular Hgb Conc 33.6 g/dL (32.0-36.0); Mean Corpuscular Volume 101.5 fL (80.0-100.0); Mean Platelet Volume 10.2 fL (9.4-12.4); Platelet Count 262 K/uL (130-400); RDW Coefficient of Variation 17.8 % (11.5-14.5); RDW Standard Deviation 66.7 fL (36.4-46.3); Red Blood Count 4.02 M/uL (4.70-6.10)
[2024-05-31 16:29] LABS: Basophils # (auto) 0.04 K/uL (0.00-0.20); Basophils % (auto) 0.2 %; Eosinophils # (auto) 0.03 K/uL (0.00-0.50); Eosinophils % (auto) 0.2 %; Immature Granulocytes % (auto) 0.6 %; Lymphocytes # (auto) 0.56 K/uL (1.20-3.40); Lymphocytes % (auto) 3.2 %; Monocytes # (auto) 0.72 K/uL (0.11-0.59); Monocytes % (auto) 4.1 %; Neutrophils # (auto) 16.25 K/uL (1.40-6.50); Neutrophils % (auto) 91.7 %; Polychromasia 1+
[2024-05-31 16:30] LABS: Albumin Globulin Ratio 0.5 (0.9-2); Albumin Level 2.9 gm/dl (3.4-5.0); BUN Creatinine Ratio 21.2 (10-20); Bilirubin,Total 2.9 mg/dl (0.2-1.0); Calcium 10.2 mg/dl (8.6-10.3); Creatinine Clr Calc Pharmacy 54.8 ml/min; Globulin 5.3 gm/dl (2.5-4.0); Potassium 4.2 mmol/L (3.5-5.1); Total Protein 8.2 gm/dl (6.0-8.3)
[2024-05-31] MEDS: PIPERACILLIN/TAZOBACTAM 4.5 GM/100 ML BAG IV ONE (16:43)
[2024-05-31 17:02] LABS: INR 2.6 (0.9-1.1); Partial Thromboplastin Ratio 1.4; Partial Thromboplastin Time 38 Seconds (21-31); Prothrombin Time 25.5 Seconds (9.0-12.0)
--- NOTE | 2024-05-31 17:11 | XRay Report ---
Single frontal view of the chest, portable at 4:55 PM. With compared to prior dated 01/30/2024. History: Sepsis Findings: Single AP view of the chest performed. No focal consolidation or pleural effusion. No pneumothorax. The cardiomediastinal silhouette is within normal limits. Normal pulmonary vascularity. No evidence for lymphadenopathy. No visualized bony or soft tissue abnormality. Impression: Normal chest radiograph Electronically signed by Odalys Mccormick 05-31-2024 5:11 PM
[2024-05-31] MEDS: SODIUM CHLORIDE 0.9% 1,000 ML IV ONE (17:58)
--- NOTE | 2024-05-31 18:05 | Emergency Department Note ---
Impression & Plan Sepsis, End stage liver disease ED Provider Note CHIEF COMPLAINT: Cough, weakness HISTORY OF PRESENT ILLNESS: This 68-year-old male with past medical history of end-stage liver disease on transplant list, BERNAL, esophageal varices, superior mesenteric vein thrombus, portal vein thrombus, chronic kidney disease, uncontrolled type 2 diabetes presents emergency department with complaints of a chronic cough, productive of yellow sputum, rigors and weakness. He states his appetite has been very poor and he has been losing weight. Recently he has been vomiting almost every time he eats. Today he vomited up water. Patient denies any blood in the emesis or stools. He is anticoagulated with warfarin. Patient is followed at [facility] by the transplant team. REVIEW OF SYSTEMS: A review of systems was performed with positives and pertinent negatives listed in the history of present illness. 10 systems were reviewed and are otherwise negative. ALLERGIES: see below MEDICATIONS: see below PMH: see below SOCIAL HISTORY: see below DDx: Sepsis, UTI, pneumonia , dehydration, spontaneous bacterial peritonitis, cellulitis, viral etiology such as COVID, influenza among others. PHYSICAL EXAM: Vital signs reviewed. tachycardic General: Chronically ill-appearing 68-year-old male, thin and frail, but in no distress HEENT: mild scleral icterus, PERRLA, neck supple. moist mucous membranes. Cardiovascular: Tachycardic but regular, no extra sounds. Pulmonary: Clear to auscultation bilaterally, normal work of breathing. Abdomen: Soft, nontender, nondistended, positive bowel sounds. Musculoskeletal: Atraumatic, no peripheral edema. Neurologic: Patient awake alert and oriented x 3, speech is clear Skin: Warm, dry, no rash EMERGENCY DEPARTMENT COURSE/MDM: This patient was evaluated and appeared to be in no significant distress. IV access was obtained and laboratory work was drawn. The patient was placed on the aviation warfare systems operator noted to be in a sinus tachycardia. Patient's complex past medical history was reviewed. Lactate and blood cultures were performed. The patient is noted to have a leukocytosis, elevated lactate at 5.7. Patient was initially hydrated with 500 mL of IV normal saline solution and continued at 125 mL/h. He was given an additional 1 L bolus of normal saline solution after the above laboratory work was resulted. Chest x-ray reveals no evidence of focal lung consolidation. INR is noted to be 2.6 however the patient is anticoagulated with warfarin. patient was medicated with 4.5 g of IV Zosyn for empiric coverage. On my reevaluation, the patient was in good spirits and is feeling somewhat improved. Case was discussed with the hospitalist, Dr. Cooper, who will evaluate the patient for admission and further management. Patient was informed of the findings and plan and agreed. MONITORING: An order for cardiac monitoring was placed and the patient is noted to be in a sinus tachycardia at 115 beats per minute. RADIOLOGY: chest x-ray to my interpretation reveals no evidence of focal lung consolidation or failure. EKG: To my interpretation reveals a sinus tachycardia at [address] segments. QTc of 454. Flattened T waves in the anterior lateral leads. DISPOSITION: admission I have personally spent greater than 35 minutes of critical care time in the direct management of this patient. This includes bedside care, interpretation of diagnostic studies, and testing, discussion with consultants, patient, and family members, and other required patient management activities. This 35 minutes is in excess of all separately billable procedures. Past Med/Surg History Problem List (Updated 05/31/24 @ 18:18 by Flavia Lomas MD) End stage liver disease (Acute) Sepsis (Acute) SOB (shortness of breath) Cough (Acute) Enterocolitis Abdominal pain (Acute) Lactic acidemia (Acute) Closed rib fracture (Acute) Persistent cough for 3 weeks or longer Right shoulder pain Bronchitis Nausea & vomiting Diarrhea Acute sinusitis Vitamin D deficiency Anticoagulant long-term use Hyperlipidemia (Chronic) Portal hypertension (Chronic) Controlled type 2 diabetes mellitus, with long-term current use of insulin (Chronic) Mild renal insufficiency (Chronic) Anxiety and depression (Chronic) Gastritis Bacteremia due to Gram-negative bacteria Hyperbilirubinemia Tremor Hypoglycemia Superior labrum erlgvhyb-[id number]-oxtthfrvb (SLAP) tear of left shoulder (Chronic) Weight loss Insomnia CKD (chronic kidney disease), stage III BERNAL (nonalcoholic steatohepatitis) (Acute) Awaiting liver transplant 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) Hypertension (Chronic) hx Peripheral neuropathy (Chronic) Hypothyroidism (Chronic) Esophageal varices hx banding GERD (gastroesophageal reflux disease) Cirrhosis of liver Medical History Decreased range of motion of left shoulder Left arm weakness COVID-19 virus infection 2021--mild symptoms "just a headache", no symptoms now Colitis Gram-negative bacteremia History of ascites DM type 2 (diabetes mellitus, type 2) IDDM GI bleed hx Anemia Post traumatic stress disorder Surgical History History of abdominal paracentesis multiple (last 2 years ago) History of surgery of liver Hepatic lobectomy (benign tumor) S/P debridement ABDOMINAL WOUND 2017 History of herniorrhaphy WITH MESH-2018 History of ERCP last 08/2021 @ [facility] Hx of hand surgery RT HAND/ARM SURGERY (METAL PLATE D/T FX) Hx of vasectomy History of esophagogastroduodenoscopy (EGD) History of colonoscopy History of cholecystectomy History of tooth extraction Family History Mother Diabetes Grandmother No problems noted. Grandmother (Maternal) Diabetes Family/Other Heart disease Cancer Hypertension Other No family history of adverse response to anesthesia Denies family history of Ovarian cancer Prostate cancer Myocardial infarction Breast cancer Colorectal cancer Social History Smoking Status: Former smoker Tobacco Type: Cigarettes and Smokeless Tobacco (Dip or Chew) Age Started Using Tobacco: 17; Age Quit Using Tobacco: 31; packs per day: 1.5; Cigarettes Per Day: QUIT 35 YEARs ago; Second Hand Exposure: No; Do You Dip or Chew Tobacco: No; Hx Alcohol Use: No Hx Substance Use: No Preferred Language: Urdu Communication Ability: Effective Visual Impairment: No Limitations Hearing Ability: Normal Field Care Advocate Required: No Beliefs That Will Affect Care: None marital status: Current Living Situation: Spouse Current Living Situation Comment: lives with current occupational status: retired How many Children do You have: 3 Feels Safe at Home: Yes Childhood Exposure to Second-Hand Smoke: Yes Diet: regular caffeine: Yes during the past year weight has: remained stable Dental Care, Regularly: Yes Physical Activity Frequency: 3-4 Times per Week Seatbelt Use: never Sunscreen Use: No Assistive Devices: Cane, Denture - Upper and Denture - Lower Allergies Allergies Allergy/AdvReac Type Severity Reaction Status Date / Time exenatide [From [place]] AdvReac Intermediate Diarrhea Verified 05/21/24 10:55 Home Meds Home Medications Medication Instructions Recorded Confirmed cyanocobalamin (vitamin B-12) 1,000 mcg PO QAM 11/25/18 05/21/24 1,000 mcg capsule calcium carbonate (Calcium 600) 600 mg PO BID 12/25/18 05/21/24 cholecalciferol (vitamin D3) 50 1,000 unit PO BID 12/25/18 05/21/24 mcg (2,000 unit) capsule (Vitamin D3) acetaminophen 500 mg tablet 500 mg PO Q6H PRN Pain 07/03/20 05/21/24 (Tylenol Extra Strength) blood sugar diagnostic (OneTouch 02/10/21 05/21/24 Ultra Blue Test Strip) blood-glucose meter,continuous 01/03/23 05/21/24 (intelworkscom G7 Site Safety Coordinator) insulin glargine 100 unit/mL (3 4 unit subcut QAM 01/30/24 05/21/24 mL) subcutaneous pen (Lantus Solostar U-100 Insulin) Previous Rx's Medication Instructions Recorded biotin 10 mg tablet 10 mg PO QAM #30 tabs 08/11/18 ferrous sulfate 325 mg (65 mg 325 mg PO BID #60 tabs 08/11/18 iron) tablet (iron) warfarin 2.5 mg tablet 2.5 mg PO .COMPLEX #90 tabs 02/19/23 levothyroxine 175 mcg tablet 175 mcg PO QAM #90 tabs 08/22/23 simvastatin 20 mg tablet 20 mg PO QAM #90 tabs 08/22/23 bupropion HCl 150 mg tablet,12 hr 150 mg PO BID #180 tabs 09/02/23 sustained-release metformin 1,000 mg tablet 1,000 mg PO BID #180 tabs 09/02/23 spironolactone 50 mg tablet 50 mg PO QAM #90 tabs 09/02/23 furosemide 20 mg tablet 20 mg PO QAM #90 tabs 09/05/23 omeprazole 40 mg capsule,delayed 40 mg PO BID #180 caps 09/09/23 release pen needle, diabetic 31 gauge x #100 ea 10/09/23 5/16" (TechLITE Pen Needle) ondansetron 4 mg disintegrating 4 mg translingual Q6H PRN 01/13/24 tablet NAUSEA/VOMITING #30 tabs carvedilol 6.25 mg tablet (Coreg) 6.25 mg PO BID #60 tabs 02/05/24 insulin aspart U-100 100 unit/mL 12 unit (0.12 mL) subcut DAILY #30 02/05/24 (3 mL) subcutaneous pen (Novolog mL FlexPen U-100 Insulin aspart) warfarin 5 mg tablet 5 mg PO DAILY #90 tabs 03/16/24 propranolol 10 mg tablet 10 mg PO BID #60 tabs 03/26/24 sertraline 50 mg tablet 50 mg PO DAILY #90 tabs 04/13/24 oxycodone 5 mg tablet 5 mg PO TID PRN severe pain (scale 05/04/24 score 7-10) #15 tabs lorazepam 0.5 mg tablet 0.5 mg PO DAILY PRN anxiety #30 05/08/24 tabs albuterol sulfate 90 mcg/actuation 2 inh inhalation Q6H PRN shortness 05/11/24 aerosol inhaler of breath or wheezing #8.5 grams hydrocodone-homatropine 5 mg-1.5 5 ml PO Q6H PRN cough #200 mL 05/21/24 mg/5 mL (5 mL) oral syrup (Hycodan) Results & Data (ED) Vital Signs Vital Signs - 24 hr 05/31/24 15:37 05/31/24 16:21 05/31/24 16:21 Temperature 36.6 C Temperature Source Temporal Artery Scan Pulse Rate 115 H Pulse Rate [Right Finger] 94 H Pulse Rhythm [Right Finger] Regular Pulse Strength [Right Finger] Normal Respiratory Rate 22 21 Respiratory Effort / Characteristics Non-Labored Spontaneous Non-Labored Respiratory Depth Normal Normal Respiratory Pattern Regular Blood Pressure 105/69 Blood Pressure [Right Arm] 103/81 Blood Pressure Mean 81 Blood Pressure Mean [Right Arm] 88 Blood Pressure Position [Right Arm] Lying Pulse Oximetry 97 98 98 Oxygen Delivery Method Room Air Room Air Room Air Sepsis Recent Fever Within 48 Hours No Sepsis New/Unexplained Change in Mental Status N/A Sepsis Action Taken by Nursing No Action Required 05/31/24 17:59 Temperature Temperature Source Pulse Rate Pulse Rate [Right Finger] 103 H Pulse Rhythm [Right Finger] Regular Pulse Strength [Right Finger] Normal Respiratory Rate 25 H Respiratory Effort / Characteristics Non-Labored Respiratory Depth Normal Respiratory Pattern Regular Blood Pressure Blood Pressure [Right Arm] 102/71 Blood Pressure Mean Blood Pressure Mean [Right Arm] 81 Blood Pressure Position [Right Arm] Lying Pulse Oximetry 93 Oxygen Delivery Method Room Air Sepsis Recent Fever Within 48 Hours Sepsis New/Unexplained Change in Mental Status Sepsis Action Taken by [facility] Medications Current Medication List: was personally reviewed by me Laboratory Data Attestation: I reviewed the patient's lab results. 05/31/24 15:55 05/31/24 15:55 Lab Results 05/31/24 05/31/24 Range/Units 15:55 17:37 WBC 17.70 H (4.8-10.8) K/ul RBC 4.02 L (4.70-6.10) M/uL Hgb 13.7 L (14.0-18.0) g/dl Hct 40.8 L (42.0-52.0) % MCV 101.5 H (80.0-100.0) fL MCH 34.1 H (25.0-34.0) pg MCHC 33.6 (32.0-36.0) g/dL RDW Std Deviation 66.7 H (36.4-46.3) fL RDW Coeff of Debby 17.8 H (11.5-14.5) % Plt Count 262 (130-400) K/uL MPV 10.2 (9.4-12.4) fL Immature Gran % (Auto) 0.6 % Neut % (Auto) 91.7 % Lymph % (Auto) 3.2 % [place] % (Auto) 4.1 % Eos % (Auto) 0.2 % Baso % (Auto) 0.2 % Neut # (Auto) 16.25 H (1.40-6.50) K/uL Lymph # (Auto) 0.56 L (1.20-3.40) K/uL [place] # (Auto) 0.72 H (0.11-0.59) K/uL Eos # (Auto) 0.03 (0.00-0.50) K/uL Baso # (Auto) 0.04 (0.00-0.20) K/uL Immature Gran # (Auto) 0.10 (0.01-0.20) K/uL Polychromasia 1+ PT 25.5 H (9.0-12.0) Seconds INR 2.6 H (0.9-1.1) APTT 38 H (21-31) Seconds PTT Ratio 1.4 Sodium 135 L (136-145) mmol/L Potassium 4.2 (3.5-5.1) mmol/L Chloride 101 (98-107) mmol/L Carbon Dioxide 25 (21-32) mmol/L Anion Gap 9 (3-11) BUN 25 H (6-23) mg/dl Creatinine 1.18 (0.6-1.4) mg/dl Est Cr Clr Drug Dosing 54.8 ml/min eGFR 67.63 BUN/Creatinine Ratio 21.2 H (10-20) Glucose 164 H (70-99(Fasting)) mg/dl Lactate 5.7 H* 3.7 H* (0.4-2.0) mmol/L Calcium 10.2 (8.6-10.3) mg/dl Total Bilirubin 2.9 H (0.2-1.0) mg/dl AST 27 (13-39) U/L ALT 17 (7-52) U/L Alkaline Phosphatase 150 H (34-104) U/L Total Protein 8.2 (6.0-8.3) gm/dl Albumin 2.9 L (3.4-5.0) gm/dl Globulin 5.3 H (2.5-4.0) gm/dl Albumin/Globulin Ratio 0.5 L (0.9-2) Administered Medications Sodium Chloride (Nss) 1,000 mls @ 125 mls/hr IV .Q8H YENNI Stop: 06/01/24 15:59 Last Admin: 05/31/24 16:02 Dose: 125 mls/hr Documented By: VENTURA Sodium Chloride (Nss) 1,000 mls @ 999 mls/hr IV .Q1H1M ONE Stop: 05/31/24 18:45 Last Admin: 05/31/24 17:58 Dose: 999 mls/hr Documented By: DENNY Discontinued Medications Sodium Chloride (Nss) 500 mls @ 999 mls/hr IV .Q31M ONE Stop: 05/31/24 16:21 Last Infusion: 05/31/24 16:43 Dose: Infused Documented By: Admin: 05/31/24 16:02 Dose: 999 mls/hr Documented By: VENTURA Piperacillin Sod/Tazobactam Sod (Zosyn) 4.5 gm in 100 mls @ 200 mls/hr IV NOW ONE; Protocol Stop: 05/31/24 17:03 Last Infusion: 05/31/24 17:24 Dose: Infused Documented By: Admin: 05/31/24 16:43 Dose: 200 mls/hr Documented By: DENNY Ondansetron HCl (Ondansetron Inj 2 Mg/Ml 2 Ml Vial) 4 mg IV NOW STA Stop: 05/31/24 15:52 Last Admin: 05/31/24 16:02 Dose: 4 mg Documented By: VENTURA Imaging Data Radiologist's Impression: Chest X-Ray 05/31/24 16:46 Single frontal view of the chest, portable at 4:55 PM. With compared to prior dated 01/30/2024. History: Sepsis Findings: Single AP view of the chest performed. No focal consolidation or pleural effusion. No pneumothorax. The cardiomediastinal silhouette is within normal limits. Normal pulmonary vascularity. No evidence for lymphadenopathy. No visualized bony or soft tissue abnormality. Impression: Normal chest radiograph Electronically signed by Odalys Mccormick 05-31-2024 5:11 PM Discharge Plan Visit Data Chief Complaint: Illness Stated Complaint: VOMITING, DIARRHEA, LETHARGIC ED Provider: Flavia Lomas Discharge Problem: Sepsis, End stage liver disease Forms Stand Alone Forms: [facility] [place] [employer] Prescriptions Prescriptions: No Action biotin 10 mg tablet 10 mg PO QAM Qty: 30 0RF ferrous sulfate [iron] 325 mg (65 mg iron) tablet 325 mg PO BID Qty: 60 0RF warfarin 2.5 mg tablet 2.5 mg PO .COMPLEX Qty: 90 3RF Hold Instructions: Resume on 02/04/24. Based on repeat INR on 02/04/2024 and warfarin dose recommendations from anticoagulation clinic Protocol: Dose Management Condition: Saturday Dose/Route: 5 mg Instruction: 1 x 5 mg tablet Condition: Saturday Dose/Route: 2.5 mg Instruction: 1 x 2.5 mg tablet Condition: Saturday Dose/Route: 5 mg Instruction: 1 x 5 mg tablet Condition: Saturday Dose/Route: 5 mg Instruction: 1 x 5 mg tablet Condition: Dose/Route: 7.5 mg Instruction: 1 x 2.5 mg tablet, 1 x 5 mg tablet Condition: Saturday Dose/Route: 5 mg Instruction: 1 x 5 mg tablet Condition: Saturday Dose/Route: 5 mg Instruction: 1 x 5 mg tablet Protocol Text: Adjustment Start Date: Saturday02/11/24 INR Value: 1.8 INR Date: 02/11/24 Recheck Date: 02/18/24 Rx Instructions: 2.5 mg orally as directed with the 5 mg; Patient states he takes 5mg on , Sat, Sat and Sat. He takes 2.5mg on Mondays and 7.5mg on . levothyroxine 175 mcg tablet 175 mcg PO QAM Qty: 90 3RF simvastatin 20 mg tablet 20 mg PO QAM Qty: 90 3RF spironolactone 50 mg tablet 50 mg PO QAM Qty: 90 3RF Rx Instructions: TAKE 1 TABLET BY MOUTH DAILY. bupropion HCl 150 mg tablet sustained-release 12 hr 150 mg PO BID Qty: 180 3RF Rx Instructions: TAKE 1 TABLET BY MOUTH TWICE DAILY. metformin 1,000 mg tablet 1,000 mg PO BID Qty: 180 3RF Hold Instructions: Resume on 02/10/24. Please resume after discussing with your PCP whether to continue with metformin given the fact that you have liver cirrhosis furosemide 20 mg tablet 20 mg PO QAM Qty: 90 3RF omeprazole 40 mg capsule,delayed release(DR/EC) 40 mg PO BID Qty: 180 3RF Rx Instructions: TAKE 1 CAPSULE BY MOUTH TWICE DAILY FOR STOMACH ACID. (DME) pen needle, diabetic [TechLITE Pen Needle] 31 gauge x 5/16" needle See Rx Instructions .Route Qty: 100 11RF Rx Instructions: use BID with insulin injections ondansetron 4 mg tablet,disintegrating 4 mg translingual Q6H PRN (Reason: NAUSEA/VOMITING) Qty: 30 4RF Rx Instructions: DISSOLVE 1 TABLET ON THE TONGUE EVERY 6 HOURS NEEDED. warfarin 5 mg tablet 5 mg PO DAILY Qty: 90 3RF Protocol: Dose Management Condition: Saturday Dose/Route: 5 mg Instruction: 1 x 5 mg tablet Condition: Saturday Dose/Route: 2.5 mg Instruction: 1 x 2.5 mg tablet Condition: Saturday Dose/Route: 5 mg Instruction: 1 x 5 mg tablet Condition: Saturday Dose/Route: 5 mg Instruction: 1 x 5 mg tablet Condition: Dose/Route: 7.5 mg Instruction: 1 x 2.5 mg tablet, 1 x 5 mg tablet Condition: Saturday Dose/Route: 5 mg Instruction: 1 x 5 mg tablet Condition: Saturday Dose/Route: 5 mg Instruction: 1 x 5 mg tablet Protocol Text: Adjustment Start Date: Saturday02/11/24 INR Value: 1.8 INR Date: 02/11/24 Recheck Date: 02/18/24 Rx Instructions: Patient states he takes 5mg on , Sat, Sat and Sat. He takes 2.5mg on Mondays and 7.5mg on . propranolol 10 mg tablet 10 mg PO BID Qty: 60 4RF sertraline 50 mg tablet 50 mg PO DAILY Qty: 90 3RF Rx Instructions: will cont on welbutrin lorazepam 0.5 mg tablet 0.5 mg PO DAILY PRN (Reason: anxiety) Qty: 30 1RF albuterol sulfate 90 mcg/actuation HFA aerosol inhaler 2 inh inhalation Q6H PRN (Reason: shortness of breath or wheezing) Qty: 8.5 1RF cyanocobalamin (vitamin B-12) 1,000 mcg capsule 1,000 mcg PO QAM (DME) OneTouch Ultra Blue Test Strip Strip See Rx Instructions .ROUTE .MEDSUPPLY Dose Instruction: As directed Rx Instructions: TEST 3 TIMES A DAY FOR MULTIPLE DAILY INSULIN INJECTIONS (DME) Dexcom G7 Site Safety Coordinator [facility] See Rx Instructions .Route Rx Instructions: As directed hydrocodone-homatropine [Hycodan] 5-1.5 mg/5 mL (5 mL) syrup 5 ml PO Q6H PRN (Reason: cough) Qty: 200 0RF insulin aspart U-100 [Novolog FlexPen U-100 Insulin] 100 unit/mL (3 mL) insulin pen 12 unit subcut DAILY Qty: 30 3RF carvedilol [Coreg] 6.25 mg tablet 6.25 mg PO BID Qty: 60 2RF Rx Instructions: RX per pt from GI at [facility]. found upon TCM call. oxycodone 5 mg tablet 5 mg PO TID PRN (Reason: severe pain (scale score 7-10)) Qty: 15 0RF cholecalciferol (vitamin D3) [Vitamin D3] 2,000 unit capsule 1,000 unit PO BID calcium carbonate [Calcium 600] 600 mg calcium (1,500 mg) Tablet 600 mg PO BID acetaminophen [Tylenol Extra Strength] 500 mg Tablet 500 mg PO Q6H PRN (Reason: Pain) insulin glargine [Lantus Solostar U-100 Insulin] 100 unit/mL (3 mL) insulin pen 4 unit subcut QAM Referrals Referrals: Neelam Cooper CRNP [Primary Care Provider] -
--- NOTE | 2024-05-31 18:55 | History & Physical Report ---
Date of Service May 31, 2024 Assessment & Plan (1) End stage liver disease: (2) SOB (shortness of breath): (3) Abdominal pain: (4) Persistent cough for 3 weeks or longer: (5) Nausea & vomiting: (6) Diarrhea: (7) Portal hypertension: (8) Controlled type 2 diabetes mellitus, with long-term current use of insulin: (9) CKD (chronic kidney disease), stage III: (10) BERNAL (nonalcoholic steatohepatitis): (11) Hypertension: (12) Peripheral neuropathy: (13) Hypothyroidism: (14) Esophageal varices: (15) Cirrhosis of liver: (16) GERD (gastroesophageal reflux disease): (17) SIRS (systemic inflammatory response syndrome): Plan This is a 68-year-old male with a complicated past medical history including end-stage liver disease due to BERNAL/cirrhosis, esophageal varices, 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 Patient reports months of weight loss, fatigue, weakness, and chronic cough. Overall decreased p.o. intake with worsening anorexia. He has been experiencing nausea, vomiting, diarrhea with associated chills that have been worsening this past week. #SIRS Acute patient presenting with leukocytosis, tachycardia, and lactate of 5.7 > 3.7. Patient reports chills, he remains afebrile. Blood cultures obtained and empiric Zosyn initiated in ED, vancomycin added until cultures result Patient received 1.5 L NS in ED, remains on 125 mL/h High risk for SBP, patient tender to palpation in right upper quadrant, denies worsening distention in setting of ascites, will check CT abdomen pelvis Zofran for nausea #End stage liver/cirrhosis/BERNAL/Portal hypertension/Esophageal varices/Portal vein and SMV thrombosis Patient currently in transplant was at [facility] INR elevated 2.6, will hold warfarin, hemoglobin stable, denies signs of bleeding Continue furosemide, propranolol, and spironolactone daily Check ammonia #T2DM on insulin A1c 6.6% Glycemic consult placed Hold metformin and statin #Hypothyroidism Recheck TSH Continue levothyroxine #Chronic cough Chronic, patient reports 6 months of occasionally productive cough Chest x-ray negative, recently had CT chest 05/27/2024 negative for pneumonia/pleural effusion/evidence of lung disease Continue albuterol prn Hydrocodone syrup nightly #Weight loss/weakness Nutrition consult PT/OT consult #GERD Continue PPI #Chronic pain/T4 compression fracture/rib fractures Oxycodone and acetaminophen prn #Depression/anxiety/PTSD Continue sertraline and bupropion Lorazepam prn Full code DVT prophylaxis on warfarin Diet DM/heart health History of Present Illness Chief Complaint: Weakness, fatigue, weight loss, chills Primary Care Provider: HATTIE Fleming Patient is a 68-year-old male with a past medical history pertinent for liver cirrhosis, BERNAL, portal vein thrombosis, superior mesenteric vein thrombosis, type 2 diabetes, esophageal varices, hypothyroidism, neuropathy, CKD III, and GERD on transplant list at [facility] for liver transplant. Patient reports that he has been suffering from weight loss with associated abida sea, vomiting, and diarrhea for the past 3 months. He is also had a chronic cough that has been worked up without etiology, occasionally productive with thick sputum. He reports his energy has been depleted the past 3 to 4 days. He went out to eat with his for their anniversary on 05/29/2024 and barely ate due to anorexia. He reports intermittent chills but no reported fevers. Patient reports that he been compliant with his medications, reportedly all of them, and ultimately has failure to thrive. Allergies Allergy/AdvReac Type Severity Reaction Status Date / Time exenatide [From Anya] AdvReac Intermediate Diarrhea Verified 05/21/24 10:55 Home Medications Medication Instructions Recorded Confirmed Type biotin 10 mg tablet 10 mg PO QAM #30 tabs 08/11/18 05/31/24 Rx ferrous sulfate 325 mg (65 mg 325 mg PO BID #60 tabs 08/11/18 05/31/24 Rx iron) tablet (iron) cyanocobalamin (vitamin B-12) 1,000 mcg PO QAM 11/25/18 05/31/24 History 1,000 mcg capsule calcium carbonate (Calcium 600) 600 mg PO BID 12/25/18 05/31/24 History cholecalciferol (vitamin D3) 50 1,000 unit PO BID 12/25/18 05/31/24 History mcg (2,000 unit) capsule (Vitamin D3) acetaminophen 500 mg tablet 500 mg PO Q6H PRN Pain 07/03/20 05/31/24 History (Tylenol Extra Strength) blood sugar diagnostic (OneTouch 02/10/21 05/21/24 History Ultra Blue Test Strip) blood-glucose meter,continuous 01/03/23 05/21/24 History (Dexcom G7 Sliver Lapper) levothyroxine 175 mcg tablet 175 mcg PO QAM #90 tabs 08/22/23 05/31/24 Rx simvastatin 20 mg tablet 20 mg PO QAM #90 tabs 08/22/23 05/31/24 Rx bupropion HCl 150 mg tablet,12 hr 150 mg PO BID #180 tabs 09/02/23 05/31/24 Rx sustained-release metformin 1,000 mg tablet 1,000 mg PO BID #180 tabs 09/02/23 05/31/24 Rx spironolactone 50 mg tablet 50 mg PO QAM #90 tabs 09/02/23 05/31/24 Rx furosemide 20 mg tablet 20 mg PO QAM #90 tabs 09/05/23 05/31/24 Rx omeprazole 40 mg capsule,delayed 40 mg PO BID #180 caps 09/09/23 05/31/24 Rx release pen needle, diabetic 31 gauge x #100 ea 10/09/23 05/21/24 Rx 5/16" (TechLITE Pen Needle) ondansetron 4 mg disintegrating 4 mg translingual Q6H PRN 01/13/24 05/31/24 Rx tablet NAUSEA/VOMITING #30 tabs insulin glargine 100 unit/mL (3 4 unit subcut QAM 01/30/24 05/31/24 History mL) subcutaneous pen (Lantus Solostar U-100 Insulin) insulin aspart U-100 100 unit/mL 12 unit (0.12 mL) subcut DAILY #30 02/05/24 05/31/24 Rx (3 mL) subcutaneous pen (Novolog mL FlexPen U-100 Insulin aspart) propranolol 10 mg tablet 10 mg PO BID #60 tabs 03/26/24 05/31/24 Rx sertraline 50 mg tablet 50 mg PO DAILY #90 tabs 04/13/24 05/31/24 Rx lorazepam 0.5 mg tablet 0.5 mg PO DAILY PRN anxiety #30 05/08/24 05/31/24 Rx tabs albuterol sulfate 90 mcg/actuation 2 inh inhalation Q6H PRN shortness 05/11/24 05/31/24 Rx aerosol inhaler of breath or wheezing #8.5 grams hydrocodone-homatropine 5 mg-1.5 5 ml PO Q6H PRN cough #200 mL 05/21/24 05/31/24 Rx mg/5 mL (5 mL) oral syrup (Hycodan) warfarin 2.5 mg tablet 2.5 mg PO DIRECTED 05/31/24 05/31/24 History warfarin 5 mg tablet 5 mg PO DIRECTED 05/31/24 05/31/24 History warfarin 7.5 mg tablet 7.5 mg PO DIRECTED 05/31/24 05/31/24 History Past Med/Surg History Problem List (Updated 05/31/24 @ 18:54 by Manisha Cooper DO) SIRS (systemic inflammatory response syndrome) Sepsis (Acute) Lactic acidemia (Acute) Cirrhosis of liver Superior mesenteric vein thrombosis (Acute) Portal vein thrombosis End stage liver disease (Acute) CKD (chronic kidney disease), stage III Portal hypertension (Chronic) SOB (shortness of breath) Cough (Acute) Enterocolitis Abdominal pain (Acute) Closed rib fracture (Acute) Persistent cough for 3 weeks or longer Right shoulder pain Bronchitis Nausea & vomiting Diarrhea Acute sinusitis Vitamin D deficiency Anticoagulant long-term use Hyperlipidemia (Chronic) Controlled type 2 diabetes mellitus, with long-term current use of insulin (Chronic) Mild renal insufficiency (Chronic) Anxiety and depression (Chronic) Gastritis Bacteremia due to Gram-negative bacteria Hyperbilirubinemia Tremor Hypoglycemia Superior labrum [id number] (SLAP) tear of left shoulder (Chronic) Weight loss Insomnia BERNAL (nonalcoholic steatohepatitis) (Acute) Awaiting liver transplant Hypertension (Chronic) hx Peripheral neuropathy (Chronic) Hypothyroidism (Chronic) Esophageal varices hx banding GERD (gastroesophageal reflux disease) Medical History Decreased range of motion of left shoulder Left arm weakness COVID-19 virus infection 2021--mild symptoms "just a headache", no symptoms now Colitis Gram-negative bacteremia History of ascites DM type 2 (diabetes mellitus, type 2) IDDM GI bleed hx Anemia Post traumatic stress disorder Surgical History History of abdominal paracentesis multiple (last 2 years ago) History of surgery of liver Hepatic lobectomy (benign tumor) S/P debridement ABDOMINAL WOUND 2018 History of herniorrhaphy WITH MESH-2018 History of ERCP last 08/2021 @ [facility] Hx of hand surgery RT HAND/ARM SURGERY (METAL PLATE D/T FX) Hx of vasectomy History of esophagogastroduodenoscopy (EGD) History of colonoscopy History of cholecystectomy History of tooth extraction Family History Mother Diabetes Grandmother No problems noted. Grandmother (Maternal) Diabetes Family/Other Heart disease Cancer Hypertension Other No family history of adverse response to anesthesia Denies family history of Ovarian cancer Prostate cancer Myocardial infarction Breast cancer Colorectal cancer Social History Smoking Status: Former smoker Tobacco Type: Cigarettes and Smokeless Tobacco (Dip or Chew) Age Started Using Tobacco: 17; Age Quit Using Tobacco: 31; packs per day: 1.5; Cigarettes Per Day: QUIT 35 YEARs ago; Second Hand Exposure: No; Do You Dip or Chew Tobacco: No; Hx Alcohol Use: No Hx Substance Use: No Preferred Language: Tamazight Communication Ability: Effective Visual Impairment: No Limitations Hearing Ability: Normal Backfiller Required: No Beliefs That Will Affect Care: None marital status: Current Living Situation: Spouse Current Living Situation Comment: lives with current occupational status: retired How many Children do You have: 3 Feels Safe at Home: Yes Childhood Exposure to Second-Hand Smoke: Yes Diet: regular caffeine: Yes during the past year weight has: remained stable Dental Care, Regularly: Yes Physical Activity Frequency: 3-4 Times per Week Seatbelt Use: never Sunscreen Use: No Assistive Devices: Cane, Denture - Upper and Denture - Lower Review of Systems Constitutional: + chills, + fatigue, + weakness, + anore shannan and + weight loss Ear, Nose, Mouth, Throat: + dry mouth Respiratory: + cough, + dyspnea, + dyspnea on exertio n, + sputum production and + wheezing; no hemoptysis, no pain on inspiration and no pain with cough Cardiovascular: Additional Comments: no chest pain, no palpitations Gastrointestinal: + abdominal pain, + early satiety, + abida sea, + vomiting, + cramping and + diarrhea/loose stools; no coffee ground emesis, no hematemesis, no blood in stools and no melena Genitourinary: no dysuria or no difficulty urinating Musculoskeletal: + muscle weakness Neurologic: + generalized weakness; no dizziness and no headache(s) Hematologic / Lymphatic: + easy bleeding and + easy bruising; no night sweats Physical Exam Constitutional: + frail appearing and + underweight; no altered mental status and not lethargic ENMT: external ear and nose normal, oropharynx normal Ears: no external ear abnormality Nose: + dry nasal mucous membranes; no external nose abnormality and no nasal discharge Mouth: + dry oral mucous membranes Neck: trachea midline, no thyromegaly Thyroid: no thyromegaly and no th yroid mass Respiratory: normal respiratory effort, lungs clear to auscultation Auscultation: no rales, no rhonchi and no wheezes Cardiovascular: Rate/Rhythm: regular rate and + tachycardic Heart Sounds: normal S1 and normal S2; no murmur Gastrointestinal (Abdomen): Inspection/Auscultation: + abdomen distended and normal bowel sounds Percussion/Palpation: + abdomen tender (RUQ) and + hepatomegaly; no guarding and no fluid wave Musculoskeletal: Extremities: no elbow/forearm abnormality and no lower leg abnormality Neurologic: moves all extremities; not confused Speech / Cognition: normal speech Motor/Sensory: no tremor and no asterixis Cranial Nerves: PERRL and normal hearing Psychiatric: Orientation: alert and oriented x 3 Eye Contact: good eye contact Speech: normal rate/rhythm/volume of speech Affect: mood congruent with affect Cognition: recent memory grossly intact Insight: good insight Lymphatic: no cervical lymphadenopathy Results & Data Results & Data Vital Signs (Past 12 Hours) Vital Signs Temp Pulse Pulse Resp BP BP Pulse Ox 05/31/24 17:59 103 H 25 H 102/71 93 05/31/24 16:21 98 05/31/24 16:21 94 H 21 103/81 98 05/31/24 15:37 36.6 C 115 H 22 105/69 97 O2 Del Method 05/31/24 17:59 Room Air 05/31/24 16:21 Room Air 05/31/24 16:21 Room Air 05/31/24 15:37 Room Air PG Care Time/CCT Total # of Minutes Spent Total Time Spent with Patient: Total time spent is greater than 50% in coordination of care (as documented) at patient's floor/unit and/or counseling patient: Coding Level of Care Code 40090 INT INP/OBS CARE 2/55MIN Diagnoses End stage liver disease K72.10 SOB (shortness of breath) R06.02 Abdominal pain R10.9 Abdominal location: unspecified location Persistent cough for 3 weeks or longer R05.3 Nausea and vomiting, unspecified vomiting type R11.2 Vomiting type: unspecified Diarrhea, unspecified type R19.7 Diarrhea type: unspecified type Portal hypertension K76.6 Controlled type 2 diabetes mellitus without complication, with long-term current use of insulin E11.9; Z79.4 Diabetes mellitus complication status: without complication Stage 3a chronic kidney disease N18.31 Chronic kidney disease stage 3 subtype: stage 3a (GFR 45-59) BERNAL (nonalcoholic steatohepatitis) K75.81 Essential hypertension I10 Hypertension type: essential hypertension Peripheral neuropathy G62.9 Hypothyroidism, unspecified type E03.9 Hypothyroidism type: unspecified Secondary esophageal varices without bleeding I85.10 Esophageal varices bleeding: without bleeding Esophageal varices type: secondary Other cirrhosis of liver K74.69 Hepatic cirrhosis type: other cirrhosis Gastroesophageal reflux disease without esophagitis K21.9 Esophagitis presence: without esophagitis SIRS (systemic inflammatory response syndrome) R65.10 (3) Abdominal pain Abdominal location: unspecified location Qualified Code(s): R10.9 - Unspecified abdominal pain (5) Nausea & vomiting Vomiting type: unspecified Qualified Code(s): R11.2 - Nausea with vomiting, unspecified (6) Diarrhea Diarrhea type: unspecified type Qualified Code(s): R19.7 - Diarrhea, unspecified (8) Controlled type 2 diabetes mellitus, with long-term current use of insulin Diabetes mellitus complication status: without complication Qualified Code(s): E11.9 - Type 2 diabetes mellitus without complications; 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 (9) CKD (chronic kidney disease), stage III Chronic kidney disease stage 3 subtype: stage 3a (GFR 45-59) Qualified Code(s): N18.31 - Chronic kidney disease, stage 3a (11) Hypertension Hypertension type: essential hypertension Qualified Code(s): I10 - Essential (primary) hypertension (13) Hypothyroidism Hypothyroidism type: unspecified Qualified Code(s): E03.9 - Hypothyroidism, unspecified (14) Esophageal varices Esophageal varices bleeding: without bleeding Esophageal varices type: secondary Qualified Code(s): I85.10 - Secondary esophageal varices without bleeding (15) Cirrhosis of liver Hepatic cirrhosis type: other cirrhosis Qualified Code(s): K74.69 - Other cirrhosis of liver (16) GERD (gastroesophageal reflux disease) Esophagitis presence: without esophagitis Qualified Code(s): K21.9 - Gastro- esophageal reflux disease without esophagitis
[2024-05-31] MEDS ORDERED: CARBOHYDRATES FOR HYPOGLYCEMIA PO PRN ×2 (19:37→20:22)
[2024-05-31] MEDS ORDERED: PHARMACY GLYCEMIC MGMT CONSULT PRN (19:37)
[2024-05-31] MEDS ORDERED: GLUCAGON FOR INJ 1 MG VIAL SQ PRN ×2 (19:37→20:22)
[2024-05-31] MEDS ORDERED: GLUCOSE 10 TAB/TUBE PO PRN ×2 (19:37→20:22)
[2024-05-31] MEDS ORDERED: GLUCOSE 40% GEL 15 GM TUBE PO PRN ×2 (19:37→20:22)
[2024-05-31] MEDS ORDERED: DEXTROSE 50% 50 ML SYRINGE IV PRN ×2 (19:37→20:22)
[2024-05-31] MEDS: OPTIRAY 320 100ml IV ONE (19:54)
[2024-05-31] MEDS ORDERED: POLYETHYLENE (MIRALAX) 17 GM PACK PO PRN (20:22)
[2024-05-31] MEDS ORDERED: VANCOMYCIN CONSULT ACTIVE PRN (20:22)
[2024-05-31] MEDS ORDERED: ALBUTEROL HFA 8 GM INHALER INH PRN (20:22)
[2024-05-31] MEDS ORDERED: LANTUS PER UNIT CHARGE SQ SCH (21:00)
[2024-05-31] MEDS ORDERED: INSULIN ASPART PER UNIT CHARGE SC SCH (21:00)
[2024-05-31 21:20] LABS: Estimated Average Glucose 131 mg/dl; Hemoglobin A1C 6.2 % (4.5-5.6)
[2024-05-31] MEDS: PLASMA-LYTE A 1,000 ML IV SCH (21:34)
[2024-05-31] MEDS: PROPRANOLOL HCL 10 MG TAB PO SCH (21:36)
[2024-05-31] MEDS: FERROUS SULFATE 325 MG TAB PO SCH (21:36)
[2024-05-31] MEDS: VANCOMYCIN HCL 1,750 MG in SODIUM CHLORIDE 0.9% 500 ML IV SCH (21:36)
[2024-05-31] MEDS: PANTOprazole 40 MG TAB PO SCH (21:37)
[2024-05-31] MEDS: buPROPion SR 150 MG TABCR PO SCH (21:37)
[2024-05-31] MEDS: INSULIN ASPART PER UNIT CHARGE SC SCH (21:38)
[2024-05-31] MEDS: PIPERACILLIN/TAZOBACTAM 4.5 GM/100 ML BAG IV SCH (21:41)
[2024-05-31 22:31] LABS: Appearance Urine Clear (Clear); Bacteria Urine Automated None Seen (None Seen); Bilirubin Urine 1+ (Negative); Blood Urine Negative (Negative); Color Urine Dark Yellow; Epithelial Cell Urine Auto 0-2 /hpf (0-2); Glucose Urine UA Negative (Negative); Ketones Urine Trace (Negative); Leukocyte Esterase Urine Trace (Negative); Nitrite Urine Positive (Negative); Protein Urine 1+ (Negative); RBC Urine Automated 0-2 /hpf (0-2); Specific Gravity Urine 1.044 (1.000-1.030); Urobilinogen Urine Negative (Negative); WBC Urine Automated 0-5 /hpf (0-5)
--- NOTE | 2024-05-31 23:38 | CT Scan Report ---
Exam(s): CT ABDOMEN + PELVIS With Contrast IV Amt: 90 ml optiray 320 EXAM: CT Abdomen and Pelvis With Intravenous Contrast CLINICAL HISTORY: Reason for exam: RUQ pain, ascites. TECHNIQUE: Axial computed tomography images of the abdomen and pelvis with intravenous contrast. CTDI is 21 mGy and DLP is 1158 mGy-cm. Automated exposure control was utilized for the study. A dose lowering technique was utilized adhering to the principles of ALARA. CONTRAST: Patient received 90 ml optiray 320 of IV contrast COMPARISON: No relevant prior studies available. FINDINGS: Lung bases: Unremarkable. No mass. No consolidation. ABDOMEN: Liver: There is been a prior partial hepatic resection. There is a stable 2.5 x 2.5 cm mass in the remaining right hepatic lobe. No additional masses are noted. Gallbladder and bile ducts: There is moderate pneumobilia. There is a metallic distal common bile duct stent. No calcified stones. Pancreas: There are a few chronic pancreatic calcifications. No ductal dilation. Spleen: There are a few calcified splenic granulomas. Adrenals: Unremarkable. No mass. Kidneys and ureters: Unremarkable. No solid mass. No hydronephrosis. Stomach and bowel: There are moderate areas of colonic wall thickening suggestive of colitis. No free air or abscess is noted. No evidence for small bowel obstruction. PELVIS: Appendix: No findings to suggest acute appendicitis. Bladder: Unremarkable. No mass. Reproductive: Unremarkable as visualized. ABDOMEN and PELVIS: Intraperitoneal space: There is a moderate to large volume of ascites. Bones/joints: No acute fracture. No dislocation. Soft tissues: Unremarkable. Vasculature: Unremarkable. No abdominal aortic aneurysm. Lymph nodes: Unremarkable. No enlarged lymph nodes. IMPRESSION: 1. There is moderate to large volume of ascites. 2. There is a stable 2.5 x 2.5 cm mass in the remaining right hepatic lobe. Similar changes were noted on the prior 2023 exam. 3. There are moderate areas of colonic wall thickening suggestive of colitis. No free air or abscess is noted. Electronically signed by: Victoriano Victor MD 05/31/24 23:37 PM
[2024-06-01] MEDS: HYDROcodone/HOMATROPINE SYRUP 5MG/1.5MG 5ML UDP PO PRN (01:37)
[2024-06-01 04:47] LABS: A calco-baum cmplx NotReported Not Detected (NotDetected); Bact fragilis Not Reported Not Detected (NotDetected); Blood Culture Id Panel See PCR Comment (NotDetected); C auris Not Reported Not Detected (NotDetected); Calbicans Not Reported Not Detected (NotDetected); Candida glabrata Not Reported Not Detected (NotDetected); Candida krusei Not Reported Not Detected (NotDetected); Cneoformans/gatti Not Reported Not Detected (NotDetected); Cparapsilosis Not Reported Not Detected (NotDetected); E cloacae compx Not Reported Not Detected (NotDetected); Efaecalis Not Reported Not Detected (NotDetected); Efaecium Not Reported Not Detected (NotDetected); Enterobacterales Not Reported Not Detected (NotDetected); Escherichia coli Not Reported Not Detected (NotDetected); H influenzae Not Reported Not Detected (NotDetected); K aerogenes Not Reported Not Detected (NotDetected); Koxytoca Not Reported Not Detected (NotDetected); Kpneumoniae grp Not Reported Not Detected (NotDetected); Lmonocyt Not Reported Not Detected (NotDetected); N meningitidis Not Reported Not Detected (NotDetected); P aeruginosa Not Reported Not Detected (NotDetected); Proteus spp Not Reported Not Detected (NotDetected); Salmonella spp Not Reported Not Detected (NotDetected); Staph lugdunensis Not Reported Not Detected (NotDetected); Staph spp. Not Reported Not Detected (NotDetected); Staphaureus Not Reported Not Detected (NotDetected); Staphepi Not Reported Not Detected (NotDetected); Stenmaltophilia Not Reported Not Detected (NotDetected); Strep agal(GrpB) Not Reported Not Detected (NotDetected); Strep pneum Not Reported DETECTED (NotDetected); Strep pyog (GrpA) Not Reported Not Detected (NotDetected); Strep spp Not Reported DETECTED (NotDetected); Streptococcus spp DETECTED (NotDetected)
[2024-06-01 05:08] LABS: Streptococcus pneumoniae DETECTED (NotDetected)
[2024-06-01] MEDS: LEVOTHYROXINE SODIUM 175 MCG TABLET PO SCH (05:57)
[2024-06-01] MEDS: COUGH DROP (SUGAR FREE) LOZ 24 LOZ/1 BOX BUCCAL STA (05:59)
[2024-06-01 07:07] LABS: Basophils # (auto) 0.03 K/uL (0.00-0.20); Basophils % (auto) 0.2 %; Eosinophils # (auto) 0.31 K/uL (0.00-0.50); Eosinophils % (auto) 2.5 %; Hematocrit (blood only) 32.8 % (42.0-52.0); Hemoglobin 11.1 g/dl (14.0-18.0); Immature Granulocytes % (auto) 0.8 %; Lymphocytes # (auto) 0.62 K/uL (1.20-3.40); Lymphocytes % (auto) 4.9 %; Mean Corpuscular Hemoglobin 33.8 pg (25.0-34.0); Mean Corpuscular Hgb Conc 33.8 g/dL (32.0-36.0); Mean Platelet Volume 9.8 fL (9.4-12.4); Monocytes # (auto) 1.09 K/uL (0.11-0.59); Monocytes % (auto) 8.7 %; Neutrophils # (auto) 10.45 K/uL (1.40-6.50); Neutrophils % (auto) 82.9 %; Platelet Count 207 K/uL (130-400); RDW Coefficient of Variation 17.6 % (11.5-14.5); RDW Standard Deviation 65.1 fL (36.4-46.3); Red Blood Count 3.28 M/uL (4.70-6.10)
[2024-06-01 07:34] LABS: Albumin Globulin Ratio 0.6 (0.9-2); Albumin Level 2.3 gm/dl (3.4-5.0); BUN Creatinine Ratio 26.4 (10-20); Calcium 8.7 mg/dl (8.6-10.3); Creatinine Clr Calc Pharmacy 82.4 ml/min; Globulin 3.9 gm/dl (2.5-4.0); Potassium 3.4 mmol/L (3.5-5.1); Total Protein 6.2 gm/dl (6.0-8.3)
[2024-06-01 07:43] LABS: Thyroid Stimulating Hormone 4.132 uIu/ml (0.300-4.500)
[2024-06-01 07:47] LABS: INR 2.7 (0.9-1.1); Prothrombin Time 27.2 Seconds (9.0-12.0)
[2024-06-01 07:56] LABS: Estimated Average Glucose 128 mg/dl; Hemoglobin A1C 6.1 % (4.5-5.6)
[2024-06-01] MEDS: FUROSEMIDE 20 MG TAB PO SCH (08:39)
[2024-06-01] MEDS: SPIRONOLACTONE 25 MG TAB PO SCH (08:40)
[2024-06-01] MEDS: SERTRALINE HCL 50 MG TABLET PO SCH (08:40)
[2024-06-01] MEDS: POTASSIUM CHLORIDE CRTAB 20 MEQ TABCR PO STA (08:58)
[2024-06-01] MEDS ORDERED: LANTUS PER UNIT CHARGE SQ SCH (09:00)
--- NOTE | 2024-06-01 09:08 | Pharmacy Report ---
Pharmacy Glycemic Short Note 2 - Date of Service June 01, 2024 - Glycemic Short BSG Results (Last 24 hours): 05/31/24 05/31/24 06/01/24 15:55 20:10 06:49 Glucose 164 H 116 H POC Glucose 144 H 06/01/24 07:36 Glucose POC Glucose 117 H OUTPATIENT ANTIDIABETIC REGIMEN: * Lantus 4 units SQ QAM * Insulin aspart 12 units SQ daily * metformin 1000mg PO BID HbA1c: 6.1% on 06/01/24 ASSESSMENT: * 68 year old male presented to the ED on 05/31 due to weight loss with associated nausea, vomiting, and diarrhea for the past 3 months with depleted energy the previous 3-4 days. PHM pertinent for liver cirrhosis, BERNAL, esophageal varices, CKD III, portal and superior mesenteric vein thrombi. Pharmacy has been consulted for glycemic management while he is admitted * BSG last evening was 144mg/dL. A weight based bolus insulin regimen with a stress of ~2 was started. * He only received 1 unit of bolus insulin last evening and his fasting BSG this morning was 117mg/dL. Will not start basal insulin at this time as patient is not eating. * He is currently on zosyn + vancomycin empirically and continues on plasmalyte at 100ml/hr. PLAN FOR INPATIENT GLYCEMIC CONTROL: * Hold outpatient diabetes medications * Basal insulin * Hold for now--will reassess need with additional BSG readings. * Bolus insulin * NovoLog per scale ACHS or Q6hrs while NPO * Goal Range: Low 110 mg/dL - High 140 mg/dL * Correction Factor: 35 mg/dL/unit * Nutritional / Prandial insulin per carb ratio of 1 unit per 15 grams CHO consumed
--- NOTE | 2024-06-01 09:38 | Infectious Disease Consult ---
Date of Consultation June 01, 2024 Assessment & Plan (1) Bacteremia due to Streptococcus pneumoniae: (2) Ascites: (3) Cirrhosis of liver: (4) Diarrhea: Plan Problems: #Strep pneumo bacteremia #Cirrhosis with ascites #Diarrhea Micro: 05/31 BCx x2: GPCs in chains Abx: Zosyn 05/31 - 06/01 Vanc 05/31 Ceftriaxone 06/01 - present 68 yo M with cirrhosis, BERNAL, portal vein thrombosis, superior mesenteric vein thrombosis, esophageal varices, T2DM, CKD on liver transplant list at [facility] who presented on 05/31 with weight loss and N/V/D x 3 months, chronic cough, weakness, found to have Strep pneumo bacteremia. Pt with abdominal distension, some abdominal cramping, loose stools 3-4 times a day. Has chronic stable cough, mostly nonproductive. Denies recent travel, sick contacts, unusual/raw foods. On presentation, pt was afebrile, HR 115, BP 105/69. Labs with WBC 17.7, lactate 3.7. CXR negative, CT AP w contrast with moderate to large volume of ascites, stable 2.5 x 2.5 cm mass in remaining R hepatic lobe, moderate areas of colonic wall thickening suggestive of colitis. Admission blood cultures growing Strep pneumo in 4/4 bottles. Discussion: Unclear source of Strep pneumo bacteremia--pt without signs of pneumonia, with chronic stable cough and unremarkable CXR. Would consider SBP, given ascites noted on CT. Strep pneumo rarely causes endocarditis, so think this is unlikely. Recommendations: -Paracentesis--send fluid for cell counts, gram stain, culture -Narrowed antibiotics to ceftriaxone 2 g IV q24h -Repeat blood cultures to check for clearance of bacteremia -Agree with stool studies Will continue to follow. Consultation Information Consultation was provided via telemedicine using two-way real-time interactive telecommunication between the patient and the telemedicine provider. For the duration of the visit, the provider was performing the assessment from a different facility than the patient. This includesuse of bluetooth stethoscope forauscultationperformed by the telepresenter that the telemedicine provider can hear if described in the physical exam. Acid Remover contact information: Please call [facility] [phone]. (Phone Number For Physician Use Only) After establishing a telemedicine visit, patient was: Patient was verified with two unique identifiers, Patient/authorized rep acknowledged consent and understanding and Gave permission to continue telehealth session Time Spent with Patient: Initial => 40 min History of Present Illness Reason for Consultation: Strep pneumo bacteremia Attending Physician: Armando Viveros DO History of Present Illness 68 yo M with cirrhosis, BERNAL, portal vein thrombosis, superior mesenteric vein thrombosis, esophageal varices, T2DM, CKD on liver transplant list at [facility] who presented on 05/31 with weight loss and N/V/D x 3 months, chronic cough, weakness. Denied fevers, reported intermittent chills. States his belly feels more taut than usual, and has some abdominal cramping which he attributes to diarrhea. Denies blood in his stools. Has diarrhea 3-4 times a day, typically loose stools but today very watery. He does not require regular paracenteses, and his last was around 5-7 years ago. Pt reports his cough is chronic and stable, and is mostly nonproductive, but occasionally brings up yellow phlegm. Denies recent travel, sick contacts, unusual/raw foods. On presentation, pt was afebrile, HR 115, BP 105/69. Labs with WBC 17.7, lactate 3.7. CXR negative, CT AP w contrast with moderate to large volume of ascites, stable 2.5 x 2.5 cm mass in remaining R hepatic lobe, moderate areas of colonic wall thickening suggestive of colitis. Admission blood cultures growing Strep pneumo in 4/4 bottles. Allergies Allergy/AdvReac Type Severity Reaction Status Date / Time exenatide [From [place]] AdvReac Intermediate Diarrhea Verified 05/21/24 10:55 Home Medications Medication Instructions Recorded Confirmed Type biotin 10 mg tablet 10 mg PO QAM #30 tabs 08/11/18 05/31/24 Rx ferrous sulfate 325 mg (65 mg 325 mg PO BID #60 tabs 08/11/18 05/31/24 Rx iron) tablet (iron) cyanocobalamin (vitamin B-12) 1,000 mcg PO QAM 11/25/18 05/31/24 History 1,000 mcg capsule calcium carbonate (Calcium 600) 600 mg PO BID 12/25/18 05/31/24 History cholecalciferol (vitamin D3) 50 1,000 unit PO BID 12/25/18 05/31/24 History mcg (2,000 unit) capsule (Vitamin D3) acetaminophen 500 mg tablet 500 mg PO Q6H PRN Pain 07/03/20 05/31/24 History (Tylenol Extra Strength) blood sugar diagnostic (OneTouch 02/10/21 05/21/24 History Ultra Blue Test Strip) blood-glucose meter,continuous 01/03/23 05/21/24 History (Dexcom G7 Activities Leader) levothyroxine 175 mcg tablet 175 mcg PO QAM #90 tabs 08/22/23 05/31/24 Rx simvastatin 20 mg tablet 20 mg PO QAM #90 tabs 08/22/23 05/31/24 Rx bupropion HCl 150 mg tablet,12 hr 150 mg PO BID #180 tabs 09/02/23 05/31/24 Rx sustained-release metformin 1,000 mg tablet 1,000 mg PO BID #180 tabs 09/02/23 05/31/24 Rx spironolactone 50 mg tablet 50 mg PO QAM #90 tabs 09/02/23 05/31/24 Rx furosemide 20 mg tablet 20 mg PO QAM #90 tabs 09/05/23 05/31/24 Rx omeprazole 40 mg capsule,delayed 40 mg PO BID #180 caps 09/09/23 05/31/24 Rx release pen needle, diabetic 31 gauge x #100 ea 10/09/23 05/21/24 Rx 5/16" (TechLITE Pen Needle) ondansetron 4 mg disintegrating 4 mg translingual Q6H PRN 01/13/24 05/31/24 Rx tablet NAUSEA/VOMITING #30 tabs insulin glargine 100 unit/mL (3 4 unit subcut QAM 01/30/24 05/31/24 History mL) subcutaneous pen (Lantus Solostar U-100 Insulin) insulin aspart U-100 100 unit/mL 12 unit (0.12 mL) subcut DAILY #30 02/05/24 05/31/24 Rx (3 mL) subcutaneous pen (Novolog mL FlexPen U-100 Insulin aspart) propranolol 10 mg tablet 10 mg PO BID #60 tabs 03/26/24 05/31/24 Rx sertraline 50 mg tablet 50 mg PO DAILY #90 tabs 04/13/24 05/31/24 Rx lorazepam 0.5 mg tablet 0.5 mg PO DAILY PRN anxiety #30 05/08/24 05/31/24 Rx tabs albuterol sulfate 90 mcg/actuation 2 inh inhalation Q6H PRN shortness 05/11/24 05/31/24 Rx aerosol inhaler of breath or wheezing #8.5 grams hydrocodone-homatropine 5 mg-1.5 5 ml PO Q6H PRN cough #200 mL 05/21/24 05/31/24 Rx mg/5 mL (5 mL) oral syrup (Hycodan) warfarin 2.5 mg tablet 2.5 mg PO DIRECTED 05/31/24 05/31/24 History warfarin 5 mg tablet 5 mg PO DIRECTED 05/31/24 05/31/24 History warfarin 7.5 mg tablet 7.5 mg PO DIRECTED 05/31/24 05/31/24 History Patient History Medical History Decreased range of motion of left shoulder Left arm weakness COVID-19 virus infection 2021--mild symptoms "just a headache", no symptoms now Colitis Gram-negative bacteremia History of ascites DM type 2 (diabetes mellitus, type 2) IDDM GI bleed hx Anemia Post traumatic stress disorder Surgical History History of abdominal paracentesis multiple (last 2 years ago) History of surgery of liver Hepatic lobectomy (benign tumor) S/P debridement ABDOMINAL WOUND 2017 History of herniorrhaphy WITH MESH-2018 History of ERCP last 08/[address] [facility] Hx of hand surgery RT HAND/ARM SURGERY (METAL PLATE D/T FX) Hx of vasectomy History of esophagogastroduodenoscopy (EGD) History of colonoscopy History of cholecystectomy History of tooth extraction Family History Mother Diabetes Grandmother No problems noted. Grandmother (Maternal) Diabetes Family/Other Heart disease Cancer Hypertension Other No family history of adverse response to anesthesia Denies family history of Ovarian cancer Prostate cancer Myocardial infarction Breast cancer Colorectal cancer Social History Smoking Status: Former smoker Tobacco Type: Cigarettes and Smokeless Tobacco (Dip or Chew) Age Started Using Tobacco: 17; Age Quit Using Tobacco: 31; packs per day: 1.5; Cigarettes Per Day: QUIT 35 YEARs ago; Second Hand Exposure: No; Do You Dip or Chew Tobacco: No; Hx Alcohol Use: No Hx Substance Use: No Preferred Language: Wolof Communication Ability: Effective Visual Impairment: No Limitations Hearing Ability: Normal Head Baggage Porter Required: No Beliefs That Will Affect Care: None marital status: Current Living Situation: Spouse Current Living Situation Comment: lives with current occupational status: retired How many Children do You have: 3 Feels Safe at Home: Yes Childhood Exposure to Second-Hand Smoke: Yes Diet: regular caffeine: Yes during the past year weight has: remained stable Dental Care, Regularly: Yes Physical Activity Frequency: 3-4 Times per Week Seatbelt Use: never Sunscreen Use: No Assistive Devices: Cane Review of System A complete ROS was performed and is negative except as mentioned in the HPI. Physical Exam Physical Exam: GEN: laying in bed in NAD. RESP: No increased work of breathing ABD: Distended, firm. Non-tender to palpation. EXT: No LE edema. SKIN: No lesions or rashes on exposed skin. NEURO: Alert and oriented. Answers all questions appropriately. Speech not slurred. PSYCH: Normal mood, affect appropriate. Results & Data Vital Signs (Past 12 Hours) Vital Signs Temp Pulse Pulse Resp BP Pulse Ox O2 Del Method 06/01/24 07:43 36.6 C 79 16 92/50 L 93 Room Air 06/01/24 01:12 36.9 C 83 18 106/68 96 Room Air 06/01/24 00:59 36.5 C 86 22 94/59 L 90 Room Air 06/01/24 00:00 87 20 97/61 L 95 Room Air 05/31/24 23:41 36.9 C 83 23 98/65 L 96 Room Air 05/31/24 22:51 92 H 05/31/24 22:03 92 H 20 105/68 94 Room Air Laboratory Results Short CBC 05/31/24 06/01/24 Range/Units 15:55 06:49 WBC 17.70 H 12.60 H (4.8-10.8) K/ul Hgb 13.7 L 11.1 L (14.0-18.0) g/dl Hct 40.8 L 32.8 L (42.0-52.0) % Plt Count 262 207 (130-400) K/uL BMP 05/31/24 06/01/24 15:55 06:49 Sodium 135 L 134 L Potassium 4.2 3.4 L Chloride 101 104 Carbon Dioxide 25 24 BUN 25 H 23 Creatinine 1.18 0.87 D Glucose 164 H 116 H Calcium 10.2 8.7 Liver Function 05/31/24 06/01/24 Range/Units 15:55 06:49 Total Bilirubin 2.9 H 2.0 H (0.2-1.0) mg/dl AST 27 17 (13-39) U/L ALT 17 11 (7-52) U/L Alkaline Phosphatase 150 H 111 H (34-104) U/L Albumin 2.9 L 2.3 L (3.4-5.0) gm/dl Urine 05/31/24 Range/Units 21:47 Urine Color Dark Yellow Urine Appearance Clear (Clear) Urine pH 5.0 (4.5-7.5) Ur Specific [place] 1.044 H (1.000-1.030) Urine Protein 1+ H (Negative) Urine Glucose (UA) Negative (Negative) Diagnostic Findings Chest X-Ray 05/31/24 16:46 Single frontal view of the chest, portable at 4:55 PM. With compared to prior dated 01/30/2024. History: Sepsis Findings: Single AP view of the chest performed. No focal consolidation or pleural effusion. No pneumothorax. The cardiomediastinal silhouette is within normal limits. Normal pulmonary vascularity. No evidence for lymphadenopathy. No visualized bony or soft tissue abnormality. Impression: Normal chest radiograph Electronically signed by Odalys Mccormick 05-31-2024 5:11 PM Abdomen/Pelvis CT 05/31/24 19:36 Exam(s): CT ABDOMEN + PELVIS With Contrast IV Amt: 90 ml optiray 320 EXAM: CT Abdomen and Pelvis With Intravenous Contrast CLINICAL HISTORY: Reason for exam: RUQ pain, ascites. TECHNIQUE: Axial computed tomography images of the abdomen and pelvis with intravenous contrast. CTDI is 21 mGy and DLP is 1158 mGy-cm. Automated exposure control was utilized for the study. A dose lowering technique was utilized adhering to the principles of ALARA. CONTRAST: Patient received 90 ml optiray 320 of IV contrast COMPARISON: No relevant prior studies available. FINDINGS: Lung bases: Unremarkable. No mass. No consolidation. ABDOMEN: Liver: There is been a prior partial hepatic resection. There is a stable 2.5 x 2.5 cm mass in the remaining right hepatic lobe. No additional masses are noted. Gallbladder and bile ducts: There is moderate pneumobilia. There is a metallic distal common bile duct stent. No calcified stones. Pancreas: There are a few chronic pancreatic calcifications. No ductal dilation. Spleen: There are a few calcified splenic granulomas. Adrenals: Unremarkable. No mass. Kidneys and ureters: Unremarkable. No solid mass. No hydronephrosis. Stomach and bowel: There are moderate areas of colonic wall thickening suggestive of colitis. No free air or abscess is noted. No evidence for small bowel obstruction. PELVIS: Appendix: No findings to suggest acute appendicitis. Bladder: Unremarkable. No mass. Reproductive: Unremarkable as visualized. ABDOMEN and PELVIS: Intraperitoneal space: There is a moderate to large volume of ascites. Bones/joints: No acute fracture. No dislocation. Soft tissues: Unremarkable. Vasculature: Unremarkable. No abdominal aortic aneurysm. Lymph nodes: Unremarkable. No enlarged lymph nodes. IMPRESSION: 1. There is moderate to large volume of ascites. 2. There is a stable 2.5 x 2.5 cm mass in the remaining right hepatic lobe. Similar changes were noted on the prior 2023 exam. 3. There are moderate areas of colonic wall thickening suggestive of colitis. No free air or abscess is noted. Electronically signed by: Victoriano Victor MD 05/31/24 23:37 PM Medications Administered Current Inpatient Medications Albuterol (Albuterol Hfa 8 Gm Inhaler) 2 puffs INH Q6H PRN PRN Reason: shortness of breath or wheezing Stop: 06/30/24 20:21 Bupropion HCl (Bupropion Sr 150 Mg Tabcr) 150 mg PO BID YENNI Stop: 06/30/24 20:59 Last Admin: 06/01/24 08:38 Dose: 150 mg Dextrose (Dextrose 50% 50 Ml Syringe) 25 - 50 ml IV UD PRN; Protocol PRN Reason: Hypoglycemia Protocol Stop: 06/30/24 19:36 Ferrous Sulfate (Ferrous Sulfate 325 Mg Tab) 325 mg PO BID YENNI Stop: 06/30/24 20:59 Last Admin: 06/01/24 08:38 Dose: 325 mg Furosemide (Furosemide 20 Mg Tab) 20 mg PO QAM YENNI Stop: 07/01/24 08:59 Last Admin: 06/01/24 08:39 Dose: 20 mg Glucagon (Glucagon For Inj 1 Mg Vial) 1 mg SQ UD PRN; Protocol PRN Reason: Hypoglycemia Protocol Stop: 06/30/24 19:36 Glucose (Glucose 40% Gel 15 Gm Tube) 15 - 30 gm PO UD PRN; Protocol PRN Reason: Hypoglycemia Protocol Stop: 06/30/24 19:36 Glucose (Glucose 10 Tab/Tube) 4 - 8 tab PO UD PRN; Protocol PRN Reason: Hypoglycemia Protocol Stop: 06/30/24 19:36 Hydrocodone Bit/Homatropine Methylb (Hydrocodone/Homatropine Syrup 5mg/1.5mg 5ml Udp) 5 ml PO Q6H PRN PRN Reason: cough Stop: 06/14/24 20:41 Last Admin: 06/01/24 01:37 Dose: 5 ml Parenteral Electrolytes (Plasma-Lyte A Ph 7.4) 1,000 mls @ 125 mls/hr IV .Q8H YENNI Stop: 06/01/24 20:21 Last Admin: 06/01/24 06:26 Dose: 100 mls/hr Ceftriaxone Sodium (Rocephin) 2,000 mg in 50 mls @ 100 mls/hr IV Q24H [facility] Stop: 06/15/24 11:59 Last Admin: 06/01/24 13:08 Dose: 100 mls/hr Insulin Aspart (Insulin Aspart Per Unit Charge) 0 units SC ACHS YENNI Stop: 06/30/24 20:59 Last Admin: 06/01/24 12:47 Dose: 1 units Levothyroxine Sodium (Levothyroxine Sodium 175 Mcg Tablet) 175 mcg PO DAILYBB YENNI Stop: 07/01/24 06:29 Last Admin: 06/01/24 05:57 Dose: 175 mcg Lorazepam (Lorazepam 0.5 Mg Tab) 0.5 mg PO DAILY PRN PRN Reason: anxiety Stop: 06/30/24 20:21 Melatonin (Melatonin 3 Mg Tab) 3 mg PO HS PRN PRN Reason: Insomnia Stop: 06/30/24 20:21 Miscellaneous (Carbohydrates For Hypoglycemia ) 15 - 30 gm PO UD PRN PRN Reason: Hypoglycemia Protocol Stop: 06/30/24 19:36 Miscellaneous Information (Pharmacy Glycemic Mgmt Consult) 1 each N/A UD PRN; Protocol PRN Reason: Consult Stop: 06/30/24 19:36 Ondansetron HCl (Ondansetron Inj 2 Mg/Ml 2 Ml Vial) 4 mg IV Q6H PRN PRN Reason: Nausea Stop: 06/30/24 20:21 Pantoprazole Sodium (Pantoprazole 40 Mg Tab) 40 mg PO BID YENNI Stop: 06/30/24 20:59 Last Admin: 06/01/24 08:39 Dose: 40 mg Polyethylene Glycol (Polyethylene (Miralax) 17 Gm Pack) 17 gm PO DAILY PRN PRN Reason: Constipation Stop: 06/30/24 20:21 Propranolol HCl (Propranolol Hcl 10 Mg Tab) 10 mg PO BID [facility] Stop: 06/30/24 20:59 Last Admin: 06/01/24 08:40 Dose: Not Given Sertraline HCl (Sertraline Hcl 50 Mg Tablet) 50 mg PO DAILY [facility] Stop: 07/01/24 08:59 Last Admin: 06/01/24 08:40 Dose: 50 mg Spironolactone (Spironolactone 25 Mg Tab) 50 mg PO QAM [facility] Stop: 07/01/24 08:59 Last Admin: 06/01/24 08:40 Dose: 50 mg (3) Cirrhosis of liver Hepatic cirrhosis type: other cirrhosis Qualified Code(s): K74.69 - Other cirrhosis of liver (4) Diarrhea Diarrhea type: unspecified type Qualified Code(s): R19.7 - Diarrhea, unspecified
--- NOTE | 2024-06-01 10:24 | Hospitalist Progress Note ---
Date of Service June 01, 2024 Assessment & Plan (1) Ascites: (2) Bacteremia due to Streptococcus pneumoniae: (3) SIRS (systemic inflammatory response syndrome): (4) Cirrhosis of liver: (5) Superior mesenteric vein thrombosis: (6) End stage liver disease: (7) CKD (chronic kidney disease), stage III: (8) Portal hypertension: (9) Nausea & vomiting: Plan Patient is a 68-year-old male with a past medical history pertinent for liver cirrhosis, BERNAL, portal vein thrombosis, superior mesenteric vein thrombosis, type 2 diabetes, esophageal varices treated with banding 3x, hypothyroidism, neuropathy, CKD III, and GERD on transplant list at [facility] for liver transplant presenting to the ED with SIRS. Patient reports months of weight loss, fatigue, weakness, and chronic cough for 3 months. Overall decreased p.o. intake with worsening anorexia. He has been experiencing nausea, vomiting, diarrhea with associated chills that have been worsening this weekend. Patient remains hypotensive, afebrile, pulse has normalized. Patient states his systolic BP normally runs between 95-105. CT abdomen/pelvis demonstrated ascites, 2.5x2.5 hepatic mass, and bowel wall thickening. Strep pneumo bacteremia Source of bacteremia SBP vs. Enteritis vs. Pneumonia Blood culture positive 06/[address] did not demonstrate evidence of pneumonia On admission presenting with leukocytosis, tachycardia, and lactate of 3.7 down to 1.9. Patient reports chills, he remains afebrile. WBC count is downtrending s/p Zosyn and Vanco TTE showed no evidence of vegetation Zofran for nausea Plan: -C. diff stool / PCR stool culture -ID Consulted, aprec recommendation -Deescalate antibiotic therapy from vancomycin and Zosyn to ceftriaxone. #End stage liver/cirrhosis/BERNAL/Portal hypertension/Esophageal varices/Portal vein and SMV thrombosis: Patient currently in transplant was at [facility] Most recent INR 2.7, holding warfarin until tomorrow. Plan is for paracentesis tomorrow if INR<2 Continue furosemide, propranolol, and spironolactone daily He has EGD scheduled for 06/05/24 #Chronic cough Chronic, patient reports 6 months of occasionally productive cough Chest x-ray negative, recently had CT chest 05/27/2024 negative for pneumonia/pleural effusion/evidence of lung disease Continue albuterol prn Hydrocodone syrup nightly #T2DM on insulin A1c 6.6% Glycemic consult placed Hold metformin and statin #Hypothyroidism Recheck TSH Continue levothyroxine #Weight loss/weakness Nutrition consult PT/OT consult #GERD Continue PPI #Chronic pain/T4 compression fracture/rib fractures Oxycodone and acetaminophen prn #Depression/anxiety/PTSD Continue sertraline and bupropion Lorazepam prn Full code DVT prophylaxis: warfarin held, awaiting paracentesis Diet DM/heart health Admission and Anticipated Discharge Date Admission Date: May 31, 2024 Supervising Physician Co-Signing Physician Notes I personally examined the patient and verified all trivedi points of history and exam, discussed case, and agree with decision making with Dr Abdirahman Cardona and Kika Carver MS2 feeling ok but still has distended uncomfortable belly. dtr present updated both and answered all questions to the best of my ability and to their satisfaction vitals noted nad heent nc at mmm breathing unlabored no accessory muscles good effort abd mod distended mod tender diffusely no guarding /rebound/rigidity sepsis with gram positive bacteremia, possible SBP - doubt that the two are directly related although could possibly be. for GPC bacteremia -suspect this is the cause of the sepsis; on abx, echo reassuring, follow up cx tomorrow. possible SBP - same abx will cover, paracentesis hopefully tomorrow (IR wants to understandably have INR sl lower). supportive care. n/v/weight loss - suspect gastritis//portal hypertensive gastropathy. on BID ppi. add BID H2, QID carafate. is scheduled for EGD as outpt - if doesn't feel better after a few days then may need to request EGD be moved up (it sounds like it's in about 2 months currently) otherwise as above chronically anticoagulated Subjective Patient is a 68-year-old male with a past medical history pertinent for liver cirrhosis, BERNAL, portal vein thrombosis, superior mesenteric vein thrombosis, type 2 diabetes, esophageal varices treated with banding 3x, hypothyroidism, neuropathy, CKD III, and GERD on transplant list at [facility] for liver transplant. Patient reports that he has been suffering from weight loss with associated nausea, vomiting, and cramping/diarrhea for the past 3 months. He is also had a chronic cough with yellow-green sputum over these 3 months. He states that he is "failing to thrive" due to anorexia. He reports intermittent chills, but no fevers. He states that on Saturday, he decided to come into the hospital because he threw up water in the morning and then a yellow bile substance later in the day. The second episode of vomiting was different than his previous episodes over the last 3 months, which he thought warranted evaluation in the context of his weight loss and anorexia. Review of Systems Review of Systems: Constitutional: Positive for chills and weight loss. Denies, fever, malaise, night sweats HEENT: Denies head pain, headaches. Denies eye pain, vision loss/changes, blurry vision, double vision. Denies ear pain, and hearing loss. Denies sore throat or sore neck or sinus pain. Respiratory: Positive for cough with yellow sputum. Denies SOB,pleuritic chest pain, wheezing CV: Denies chest pain, heart palpitations, tachycardia, bradycardia, edema GI: Positive for abdominal distention, cramping, diarrhea, nausea, vomiting. Denies abdominal pain, constipation, hematochezia : Denies dysuria, increased urinary frequency, hematuria MSK: Denies joint pain, muscle pain, decreased ROM, Neuro: Denies altered mental status, slurred speech, numbness or tingling Physical Exam Physical Exam: General: Alert and oriented X3, appears dry and malnourished. very pleasant HEENT: Anterior Cervical Lymphadenopathy, Normocephalic, atraumatic, PERRL, Dry mucous membranes, neck is supple, trachea midline, no lymphadenopathy or thyromegaly appreciated Respiratory: Chest is CTAB without wheezes, rales, or rhonchi Cardiovascular: Heart has RRR without murmurs, rubs, or gallops. No JVD, or lower extremity edema. 2+ distal pulse palpated in all four extremities Abdomen: Abdomen is distended, diffusely tender. No hepatosplenomegaly appreciated. Normoactive bowel sounds. Negative Rosen's and McBurneys Musculoskeletal: Normal range of motion and 5/5 strength in all extremities. Psychiatric: Appropriate mood and affect. Results & Data Results & Data Vital Signs (Past 12 Hours) Vital Signs Temp Pulse Pulse Resp BP Pulse Ox O2 Del Method 06/01/24 07:43 36.6 C 79 16 92/50 L 93 Room Air 06/01/24 01:12 36.9 C 83 18 106/68 96 Room Air 06/01/24 00:59 36.5 C 86 22 94/59 L 90 Room Air 06/01/24 00:00 87 20 97/61 L 95 Room Air 05/31/24 23:41 36.9 C 83 23 98/65 L 96 Room Air 05/31/24 22:51 92 H 05/31/24 22:03 92 H 20 105/68 94 Room Air 05/31/24 20:35 91 H 24 104/66 92 Room Air Diagnostic Findings CXR 05/31/24: CT Abdomen/Pelvis 05/31/24; IMPRESSION: 1. There is moderate to large volume of ascites. 2. There is a stable 2.5 x 2.5 cm mass in the remaining right hepatic lobe. Similar changes were noted on the prior 2023 exam. 3. There are moderate areas of colonic wall thickening suggestive of colitis. No free air or abscess is noted. Resident Activity Tracking Resident Involvement: Resident Care Provided Care Provided: Adult Hospital Medicine (4) Cirrhosis of liver Hepatic cirrhosis type: other cirrhosis Qualified Code(s): K74.69 - Other cirrhosis of liver (7) CKD (chronic kidney disease), stage III Chronic kidney disease stage 3 subtype: stage 3a (GFR 45-59) Qualified Code(s): N18.31 - Chronic kidney disease, stage 3a (9) Nausea & vomiting Vomiting type: unspecified Qualified Code(s): R11.2 - Nausea with vomiting, unspecified
[2024-06-01] MEDS: VANCOMYCIN 750 MG in SODIUM CHLORIDE 0.9% 250 ML IV SCH (11:02)
[2024-06-01] MEDS: cefTRIAXone SODIUM 2,000 MG/50 ML BAG IV SCH (13:08)
--- NOTE | 2024-06-01 14:14 | Electrocardiogram Report ---
Test Reason : Blood Pressure : */* mmHG Vent. Rate : 104 BPM Atrial Rate : 104 BPM P-R Int : 148 ms QRS Dur : 74 ms QT Int : 346 ms P-R-T Axes : 38 -33 24 degrees QTcB Int : 454 ms Sinus tachycardia Left axis deviation Possible Anterolateral infarct , age undetermined Abnormal ECG When compared with ECG of 31-Jan-2024 15:19, No significant change was found Confirmed by Liam Barbour ([id number]) on 06/01/2024 2:14:34 PM Referred By: Confirmed By: Liam Barbour
--- NOTE | 2024-06-01 15:04 | XCELERA ---
[id number] [id number]
--- NOTE | 2024-06-01 18:20 | Billing Data ---
Date of Service June 01, 2024 Coding Level of Care Code 20156 SUB INP/OBS CARE MIN
[2024-06-01 23:05] LABS: Adenovirus F 40/41 PCR Not Detected (NotDetected); Astrovirus PCR Not Detected (NotDetected); Campylobacter PCR Not Detected (NotDetected); Cryptosporidium PCR Not Detected (NotDetected); Cyclospora cayetanensis PCR Not Detected (NotDetected); Entamoeba histolytica PCR Not Detected (NotDetected); Enteroaggregative E.coli(EAEC) Not Detected (NotDetected); Enteropathogenic E.coli (EPEC) Not Detected (NotDetected); Enterotoxigenic E.coli (ETEC) Not Detected (NotDetected); Giardia lamblia PCR Not Detected (NotDetected); Norovirus GI/GII PCR Not Detected (NotDetected); Plesiomonas shigelloides PCR Not Detected (NotDetected); Rotavirus A PCR Not Detected (NotDetected); Salmonella PCR Not Detected (NotDetected); Sapovirus PCR Not Detected (NotDetected); Shiga-like Toxin E.coli (STEC) Not Detected (NotDetected); Shigella/Enteroinvasive E.coli Not Detected (NotDetected); Vibrio cholerae PCR Not Detected (NotDetected); Vibrio species PCR Not Detected (NotDetected); Yersinia enterocolitica PCR Not Detected (NotDetected)
[2024-06-02 08:20] LABS: Basophils # (auto) 0.02 K/uL (0.00-0.20); Basophils % (auto) 0.2 %; Eosinophils # (auto) 0.35 K/uL (0.00-0.50); Eosinophils % (auto) 3.7 %; Hematocrit (blood only) 32.9 % (42.0-52.0); Hemoglobin 11.2 g/dl (14.0-18.0); Immature Granulocytes # (auto) 0.06 K/uL (0.01-0.20); Immature Granulocytes % (auto) 0.6 %; Lymphocytes # (auto) 0.61 K/uL (1.20-3.40); Lymphocytes % (auto) 6.5 %; Mean Corpuscular Hemoglobin 33.5 pg (25.0-34.0); Mean Corpuscular Volume 98.5 fL (80.0-100.0); Mean Platelet Volume 10.1 fL (9.4-12.4); Monocytes # (auto) 1.35 K/uL (0.11-0.59); Monocytes % (auto) 14.3 %; Neutrophils # (auto) 7.06 K/uL (1.40-6.50); Neutrophils % (auto) 74.7 %; Platelet Count 224 K/uL (130-400); RDW Coefficient of Variation 17.2 % (11.5-14.5); RDW Standard Deviation 62.4 fL (36.4-46.3); Red Blood Count 3.34 M/uL (4.70-6.10); White Blood Count 9.45 K/ul (4.8-10.8)
[2024-06-02 08:30] LABS: INR 1.9 (0.9-1.1); Prothrombin Time 19.3 Seconds (9.0-12.0)
[2024-06-02 09:10] LABS: Albumin Level 2.3 gm/dl (3.4-5.0); Bilirubin,Total 1.8 mg/dl (0.2-1.0); Calcium 8.6 mg/dl (8.6-10.3); Potassium 3.2 mmol/L (3.5-5.1)
[2024-06-02 09:16] LABS: Albumin Globulin Ratio 0.5 (0.9-2); BUN Creatinine Ratio 24.4 (10-20); Creatinine Clr Calc Pharmacy 91.9 ml/min; Globulin 4.5 gm/dl (2.5-4.0); Total Protein 6.8 gm/dl (6.0-8.3)
--- NOTE | 2024-06-02 09:40 | Hospitalist Progress Note ---
Date of Service June 02, 2024 Assessment & Plan (1) Ascites: (2) Bacteremia due to Streptococcus pneumoniae: (3) SIRS (systemic inflammatory response syndrome): (4) Cirrhosis of liver: (5) Superior mesenteric vein thrombosis: (6) End stage liver disease: (7) CKD (chronic kidney disease), stage III: (8) Portal hypertension: (9) Nausea & vomiting: Plan Patient is a 68-year-old male with a past medical history pertinent for liver cirrhosis, BERNAL, portal vein thrombosis, superior mesenteric vein thrombosis, type 2 diabetes, esophageal varices treated with banding 3x, hypothyroidism, neuropathy, CKD III, and GERD on transplant list at [facility] for liver transplant presenting to the ED with SIRS. Patient reports months of weight loss, fatigue, weakness, and chronic cough for 3 months. Overall decreased p.o. intake with worsening anorexia. He has been experiencing nausea, vomiting, diarrhea with associated chills that have been worsening this weekend. Patient remains hypotensive, afebrile, pulse has normalized. Patient states his systolic BP normally runs between 95-105. CT abdomen/pelvis demonstrated ascites, 2.5x2.5 hepatic mass, and bowel wall thickening. #SIRS #SBP #Strep Pneumoniae bacteremia -Blood culture 05/31/24 growing streptococcus pneumoniae -Paracentesis 06/02/24: -WBC 940 -Neutrophils 91% -Appearance yellow, hazy -Peritoneal Fluid culture ordered CXR 05/[address] chest 05/27 did not demonstrate evidence of pneumonia -WBC count is downtrending -TTE 06/01 showed no evidence of vegetation -C. diff gene negative -Zofran for nausea -Antibiotic therapy deescalated from vancomycin and Zosyn to ceftriaxone. #End stage liver/cirrhosis/BERNAL/Portal hypertension/Esophageal varices/Portal vein and SMV thrombosis -Patient currently in transplant was at [facility] -Most recent INR 1.9, holding warfarin for paracentesis. Going to continue holding warfarin at this time as his venous thromboses are very low risk as they filter into the hepatic portal system. Continue to hold at his time incase future paracentesis needed during this hospital stay. -Continue furosemide, propranolol, and spironolactone daily -He has EGD scheduled for 06/05/24 #Chronic cough -Chronic, patient reports 6 months of occasionally productive cough -Chest x-ray negative, recently had CT chest 05/27/2024 negative for pneumonia/pleural effusion, evidence of lung disease -Continue albuterol prn -Hydrocodone syrup nightly #T2DM on insulin A1c 6.6% Glycemic consult placed Hold metformin and statin #Hypothyroidism Continue levothyroxine #Weight loss/weakness Nutrition consult PT/OT consult #GERD Continue PPI #Chronic pain/T4 compression fracture/rib fractures Oxycodone and acetaminophen prn #Depression/anxiety/PTSD Continue sertraline and bupropion Lorazepam prn Full code DVT prophylaxis: warfarin held for paracentesis, continue to hold at this time. Diet DM/heart health Admission and Anticipated Discharge Date Admission Date: May 31, 2024 Supervising Physician Co-Signing Physician Notes I personally examined the patient and verified all trivedi points of history and exam, discussed case, and agree with decision making with Dr Abdirahman Cardona and Kika Carver MS2 feels much better since para. hasn't really been able to try to eat much yet t abhi. vitals noted nad heent nc at mmm breathing unlabored no accessory muscles good effort abd soft nd nt sepsis with gram positive bacteremia, SBP - possible that the two are directly related although easily could be separate. rocephin will cover both. would appreciate ID assist on optimal duration and on optimal SBP proph after treatment. n/v/weight loss - suspect gastritis//portal hypertensive gastropathy. on BID ppi. add BID H2, QID carafate. is scheduled for EGD as outpt - if doesn't feel better after a few days then may need to request EGD be moved up (it sounds like it's in about 2 months currently) too soon to see changes since he hasn't really had a chance to eat yet. otherwise as above chronically anticoagulated Subjective Patient is a 68-year-old male with a past medical history pertinent for liver cirrhosis, BERNAL, portal vein thrombosis, superior mesenteric vein thrombosis, type 2 diabetes, esophageal varices treated with banding 3x, hypothyroidism, neuropathy, CKD III, and GERD on transplant list at [facility] for liver transplant presenting to the ED with SIRS. New Events: Patient states he is doing well. He is still uncomfortable from the abdominal distention and is awaiting paracentesis. His cough has not shown improvement yet. No new concerns today. Paracentesis 3/25/25: -WBC 940 -Neutrophils 91% -Appearance yellow, hazy Review of Systems Review of Systems: Constitutional: Positive for chills and weight loss. Denies, fever, malaise, night sweats HEENT: Denies head pain, headaches. Denies eye pain, vision loss/changes, blurry vision, double vision. Denies ear pain, and hearing loss. Denies sore throat or sore neck or sinus pain. Respiratory: Positive for cough with yellow sputum. Denies SOB,pleuritic chest pain, wheezing CV: Denies chest pain, heart palpitations, tachycardia, bradycardia, edema GI: Positive for abdominal distention, cramping, diarrhea. No nausea, vomiting today. Denies abdominal pain, constipation, hematochezia : Denies dysuria, increased urinary frequency, hematuria MSK: Denies joint pain, muscle pain, decreased ROM, Neuro: Denies altered mental status, slurred speech, numbness or tingling Physical Exam Physical Exam: General: Alert and oriented X3, appears dry and malnourished. very pleasant HEENT: Anterior Cervical Lymphadenopathy, Normocephalic, atraumatic, PERRL, Dry mucous membranes, neck is supple, trachea midline, no lymphadenopathy or thyromegaly appreciated Respiratory: Chest is CTAB without wheezes, rales, or rhonchi Cardiovascular: Heart has RRR without murmurs, rubs, or gallops. No JVD, or lower extremity edema. 2+ distal pulse palpated in all four extremities Abdomen: Abdomen is distended, diffusely tender. No hepatosplenomegaly appreciated. Normoactive bowel sounds. Negative Rosen's and McBurneys Musculoskeletal: Normal range of motion and 5/5 strength in all extremities. Psychiatric: Appropriate mood and affect. Results & Data Results & Data Vital Signs (Past 12 Hours) Vital Signs Temp Pulse Resp BP Pulse Ox O2 Del Method 06/02/24 08:22 36.7 C 81 17 101/65 96 Room Air Resident Activity Tracking Resident Involvement: Resident Care Provided Care Provided: Adult Hospital Medicine (4) Cirrhosis of liver Hepatic cirrhosis type: other cirrhosis Qualified Code(s): K74.69 - Other cirrhosis of liver (7) CKD (chronic kidney disease), stage III Chronic kidney disease stage 3 subtype: stage 3a (GFR 45-59) Qualified Code(s): N18.31 - Chronic kidney disease, stage 3a (9) Nausea & vomiting Vomiting type: unspecified Qualified Code(s): R11.2 - Nausea with vomiting, unspecified
--- NOTE | 2024-06-02 10:54 | Infectious Disease Progress Nt ---
Date of Service June 02, 2024 Assessment & Plan (1) Bacteremia due to Streptococcus pneumoniae: (2) Ascites: (3) Cirrhosis of liver: (4) Diarrhea: Plan Problems: #Strep pneumo bacteremia #Cirrhosis with ascites #Diarrhea Micro: 06/02 BCx x2: pending 06/01 GI pathogen panel: neg 06/01 C diff: neg 05/31 BCx x2: Strep pneumo in 4/4 bottles Abx: Zosyn 05/31 - 06/01 Vanc 05/31 Ceftriaxone 06/01 - present 68 yo M with cirrhosis, BERNAL, portal vein thrombosis, superior mesenteric vein thrombosis, esophageal varices, T2DM, CKD on liver transplant list at [facility] who presented on 05/31 with weight loss and N/V/D x 3 months, chronic cough, weakness, found to have Strep pneumo bacteremia. Pt with abdominal distension, some abdominal cramping, loose stools 3-4 times a day. Has chronic stable cough, mostly nonproductive. Denies recent travel, sick contacts, unusual/raw foods. On presentation, pt was afebrile, HR 115, BP 105/69. Labs with WBC 17.7, lactate 3.7. CXR negative, CT AP w contrast with moderate to large volume of ascites, stable 2.5 x 2.5 cm mass in remaining R hepatic lobe, moderate areas of colonic wall thickening suggestive of colitis. Admission blood cultures growing Strep pneumo in 4/4 bottles. TTE neg. Discussion: Unclear source of Strep pneumo bacteremia--pt without signs of pneumonia, with chronic stable cough and unremarkable CXR. Would consider SBP, given ascites noted on CT. Strep pneumo rarely causes endocarditis, so think this is unlikely. Recommendations: -Paracentesis--send fluid for cell counts, gram stain, culture -Continue ceftriaxone 2 g IV q24h -Follow-up blood cultures to check for clearance of bacteremia Will continue to follow. Admission and Anticipated Discharge Date Admission Date: May 31, 2024 Subjective This patient recommendation is based on a telemedicine consult request which was completed asynchronously through chart review and information provided by the primary physician. The patient was not seen or examined today. The evaluation is consultative in nature and all patient care and treatment decisions can either be accepted or rejected by the patient's primary hospital-based treating physician using their own independent medical judgment for their patient. Time Spent Reviewing Chart: 21 - 30 minutes Afebrile Resolution of leukocytosis Results & Data Vital Signs (Past 12 Hours) Vital Signs Temp Pulse Resp BP Pulse Ox O2 Del Method 06/02/24 08:22 36.7 C 81 17 101/65 96 Room Air Laboratory Results Short CBC 06/02/24 Range/Units 07:45 WBC 9.45 (4.8-10.8) K/ul Hgb 11.2 L (14.0-18.0) g/dl Hct 32.9 L (42.0-52.0) % Plt Count 224 (130-400) K/uL BMP 06/02/24 07:45 Sodium 133 L Potassium 3.2 L Chloride 105 Carbon Dioxide 25 BUN 19 Creatinine 0.78 Glucose 107 H Calcium 8.6 Liver Function 06/02/24 Range/Units 07:45 Total Bilirubin 1.8 H (0.2-1.0) mg/dl AST 22 (13-39) U/L ALT 11 (7-52) U/L Alkaline Phosphatase 123 H (34-104) U/L Albumin 2.3 L (3.4-5.0) gm/dl Medications Administered Current Inpatient Medications Albuterol (Albuterol Hfa 8 Gm Inhaler) 2 puffs INH Q6H PRN PRN Reason: shortness of breath or wheezing Stop: 06/30/24 20:21 Bupropion HCl (Bupropion Sr 150 Mg Tabcr) 150 mg PO BID YENNI Stop: 06/30/24 20:59 Last Admin: 06/02/24 08:23 Dose: 150 mg Dextrose (Dextrose 50% 50 Ml Syringe) 25 - 50 ml IV UD PRN; Protocol PRN Reason: Hypoglycemia Protocol Stop: 06/30/24 19:36 Ferrous Sulfate (Ferrous Sulfate 325 Mg Tab) 325 mg PO BID YENNI Stop: 06/30/24 20:59 Last Admin: 06/02/24 08:23 Dose: 325 mg Furosemide (Furosemide 20 Mg Tab) 20 mg PO QAM YENNI Stop: 07/01/24 08:59 Last Admin: 06/02/24 08:23 Dose: 20 mg Glucagon (Glucagon For Inj 1 Mg Vial) 1 mg SQ UD PRN; Protocol PRN Reason: Hypoglycemia Protocol Stop: 06/30/24 19:36 Glucose (Glucose 40% Gel 15 Gm Tube) 15 - 30 gm PO UD PRN; Protocol PRN Reason: Hypoglycemia Protocol Stop: 06/30/24 19:36 Glucose (Glucose 10 Tab/Tube) 4 - 8 tab PO UD PRN; Protocol PRN Reason: Hypoglycemia Protocol Stop: 06/30/24 19:36 Hydrocodone Bit/Homatropine Methylb (Hydrocodone/Homatropine Syrup 5mg/1.5mg 5ml Udp) 5 ml PO Q6H PRN PRN Reason: cough Stop: 06/14/24 20:41 Last Admin: 06/01/24 20:51 Dose: 5 ml Ceftriaxone Sodium (Rocephin) 2,000 mg in 50 mls @ 100 mls/hr IV Q24H YENNI Stop: 06/15/24 11:59 Last Infusion: 06/01/24 13:57 Dose: Infused Insulin Aspart (Insulin Aspart Per Unit Charge) 0 units SC ACHS [facility] Stop: 06/30/24 20:59 Last Admin: 06/02/24 08:13 Dose: Not Given Levothyroxine Sodium (Levothyroxine Sodium 175 Mcg Tablet) 175 mcg PO DAILYBB [facility] Stop: 07/01/24 06:29 Last Admin: 06/02/24 06:43 Dose: Not Given Lorazepam (Lorazepam 0.5 Mg Tab) 0.5 mg PO DAILY PRN PRN Reason: anxiety Stop: 06/30/24 20:21 Melatonin (Melatonin 3 Mg Tab) 3 mg PO HS PRN PRN Reason: Insomnia Stop: 06/30/24 20:21 Miscellaneous (Carbohydrates For Hypoglycemia ) 15 - 30 gm PO UD PRN PRN Reason: Hypoglycemia Protocol Stop: 06/30/24 19:36 Miscellaneous Information (Pharmacy Glycemic Mgmt Consult) 1 each N/A UD PRN; Protocol PRN Reason: Consult Stop: 06/30/24 19:36 Ondansetron HCl (Ondansetron Inj 2 Mg/Ml 2 Ml Vial) 4 mg IV Q6H PRN PRN Reason: Nausea Stop: 06/30/24 20:21 Pantoprazole Sodium (Pantoprazole 40 Mg Tab) 40 mg PO BID [facility] Stop: 06/30/24 20:59 Last Admin: 06/02/24 08:23 Dose: 40 mg Polyethylene Glycol (Polyethylene (Miralax) 17 Gm Pack) 17 gm PO DAILY PRN PRN Reason: Constipation Stop: 04/22/25 20:21 Propranolol HCl (Propranolol Hcl 10 Mg Tab) 10 mg PO BID [facility] Stop: 06/30/24 20:59 Last Admin: 06/02/24 08:24 Dose: 10 mg Sertraline HCl (Sertraline Hcl 50 Mg Tablet) 50 mg PO DAILY [facility] Stop: 07/01/24 08:59 Last Admin: 06/02/24 08:23 Dose: 50 mg Spironolactone (Spironolactone 25 Mg Tab) 50 mg PO QAM [facility] Stop: 07/01/24 08:59 Last Admin: 06/02/24 08:23 Dose: 50 mg (3) Cirrhosis of liver Hepatic cirrhosis type: other cirrhosis Qualified Code(s): K74.69 - Other cirrhosis of liver (4) Diarrhea Diarrhea type: unspecified type Qualified Code(s): R19.7 - Diarrhea, unspecified
--- NOTE | 2024-06-02 13:28 | Ultrasound Report ---
ULTRASOUND-GUIDED PARACENTESIS CLINICAL HISTORY: Ascites PROCEDURE: Procedure and risks were explained. Informed consent was obtained. A final timeout was com pleted. The abdomen was prepped and draped in sterile fashion. 1% lidocaine was utilized for skin ane sthesia. Utilizing ultrasound guidance, a 5 [place] safety centesis catheter was advanced into the left lower q uadrant pocket of ascites. Ultrasound images were obtained. A total of 3 L of ascites fluid was remov ed with 1 L sent to the lab for analysis. The catheter was removed and Band-Aid applied. The patient tolerated the procedure well. Vital signs will be monitored postprocedure. IMPRESSION: Ultrasound-guided paracentesis as above. Performed, dictated, and signed by Olvin Henson PA-C; to be co-signed by Dr. Perry Tilley. Electronically signed by: Perry Tilley M.D. 06/02/2024 4:11 PM
[2024-06-02 14:20] LABS: Appearance Peritoneal Fluid Hazy; Color Peritoneal Fluid Yellow; RBC Peritoneal Fluid Auto < 2000 /uL; WBC Peritoneal Fluid Auto 940 /ul (0-300)
[2024-06-02 14:55] LABS: Lymphocytes, Fluid 1 %; Mono,Macrophage,Mesothelial 8 %; Neutrophils, Fluid 91 %
[2024-06-02 15:06] LABS: Albumin Peritoneal Fluid < 1.5 gm/dl; Amylase Peritoneal Fluid < 10 U/L; Glucose Peritoneal Fluid 95 mg/dl; LDH Peritoneal Fluid 75 U/L; Lipase Peritoneal Fluid 12 U/L; Total Protein Peritoneal Fluid < 3.0 gm/dl
[2024-06-02] MEDS: SUCRALFATE 1 GM/10 ML UDC PO SCH (17:20)
--- NOTE | 2024-06-02 18:08 | Billing Data ---
Date of Service June 02, 2024 Coding Level of Care Code 81429 SUB INP/OBS CARE MIN
[2024-06-02] MEDS: FAMOTIDINE 20 MG TAB PO SCH (20:55)
[2024-06-03] MEDS: LORazepam 0.5 MG TAB PO PRN (00:58)
[2024-06-03] MEDS: MELATONIN 3 MG TAB PO PRN (00:58)
[2024-06-03 07:51] LABS: Basophils # (auto) 0.03 K/uL (0.00-0.20); Basophils % (auto) 0.4 %; Eosinophils # (auto) 0.38 K/uL (0.00-0.50); Eosinophils % (auto) 5.3 %; Hematocrit (blood only) 31.1 % (42.0-52.0); Hemoglobin 10.5 g/dl (14.0-18.0); Immature Granulocytes # (auto) 0.08 K/uL (0.01-0.20); Immature Granulocytes % (auto) 1.1 %; Lymphocytes # (auto) 0.72 K/uL (1.20-3.40); Mean Corpuscular Hemoglobin 33.5 pg (25.0-34.0); Mean Corpuscular Hgb Conc 33.8 g/dL (32.0-36.0); Mean Corpuscular Volume 99.4 fL (80.0-100.0); Mean Platelet Volume 10.2 fL (9.4-12.4); Monocytes # (auto) 1.51 K/uL (0.11-0.59); Monocytes % (auto) 20.9 %; Neutrophils # (auto) 4.49 K/uL (1.40-6.50); Neutrophils % (auto) 62.3 %; Platelet Count 207 K/uL (130-400); RDW Coefficient of Variation 17.2 % (11.5-14.5); RDW Standard Deviation 62.3 fL (36.4-46.3); Red Blood Count 3.13 M/uL (4.70-6.10); White Blood Count 7.21 K/ul (4.8-10.8)
[2024-06-03 08:10] LABS: Albumin Globulin Ratio 0.5 (0.9-2); Albumin Level 2.1 gm/dl (3.4-5.0); BUN Creatinine Ratio 18.6 (10-20); Bilirubin,Total 1.4 mg/dl (0.2-1.0); Calcium 8.1 mg/dl (8.6-10.3); Creatinine Clr Calc Pharmacy 83.4 ml/min; Globulin 4.1 gm/dl (2.5-4.0); Potassium 3.1 mmol/L (3.5-5.1); Total Protein 6.2 gm/dl (6.0-8.3)
[2024-06-03 08:18] LABS: INR 1.6 (0.9-1.1); Prothrombin Time 16.9 Seconds (9.0-12.0)
--- NOTE | 2024-06-03 08:29 | Hospitalist Progress Note ---
Date of Service June 03, 2024 Assessment & Plan (1) Ascites: (2) Bacteremia due to Streptococcus pneumoniae: (3) SIRS (systemic inflammatory response syndrome): (4) Cirrhosis of liver: (5) Superior mesenteric vein thrombosis: (6) End stage liver disease: (7) CKD (chronic kidney disease), stage III: (8) Portal hypertension: (9) Nausea & vomiting: Plan Patient is a 68-year-old male with a past medical history pertinent for liver cirrhosis, BERNAL, portal vein thrombosis, superior mesenteric vein thrombosis, type 2 diabetes, esophageal varices treated with banding 3x, hypothyroidism, neuropathy, CKD III, and GERD on transplant list at [facility] for liver transplant presenting to the ED with SIRS. Patient reports months of weight loss, fatigue, weakness, and chronic cough for 3 months. Overall decreased p.o. intake with worsening anorexia. He has been experiencing nausea, vomiting, diarrhea with associated chills that have been worsening this weekend. Patient remains hypotensive, afebrile, pulse has normalized. Patient states his systolic BP normally runs between 95-105. CT abdomen/pelvis demonstrated ascites, 2.5x2.5 hepatic mass, and bowel wall thickening. #SIRS #SBP #Step pneumoniae -Blood culture 05/31/24 growing streptococcus pneumoniae -Blood Culture 06/02/24: No growth after 24hrs. -Paracentesis 06/02/24: -WBC 940 -Neutrophils 91% -Appearance yellow, hazy -Peritoneal Fluid culture 06/02/24: No preliminary growth. -CXR 05/[address] chest 05/27 did not demonstrate evidence of pneumonia -WBC count is downtrending -TTE 06/01 showed no evidence of vegetation -C. diff gene negative -Zofran for nausea -Antibiotic therapy deescalated from vancomycin and Zosyn to ceftriaxone. Plan: -Per ID, switch to PO levofloxacin for outpatient treatment. Treat through, 06/06/24 - Levofloxacin for ppx after #End stage liver/cirrhosis/BERNAL/Portal hypertension/Esophageal varices/Portal vein and SMV thrombosis -Patient currently in transplant was at [facility] -Most recent INR 1.9, holding warfarin for paracentesis. Going to continue holding warfarin at this time as his venous thromboses are very low risk as they filter into the hepatic portal system. Continue to hold at his time incase future paracentesis needed during this hospital stay. -Continue furosemide, propranolol, and spironolactone daily -He has EGD scheduled for 06/05/24 -s/p paracentesis. -Restart warfarin at home dose: 7.5mg , 2.5mg Saturday, 5mg Sun, , Sat, Sat, Sat #Chronic cough -Chronic, patient reports 6 months of occasionally productive cough -Chest x-ray negative, recently had CT chest 05/27/2024 negative for pneu monia/pleural effusion, evidence of lung disease -Continue albuterol prn -Hydrocodone syrup nightly #Anemia: -Decrease in RBCs likely due to a combination of dilutional effect, lab variation. -RBC 3.13 -Hgb 10.5 -Hct: 31.1 #T2DM on insulin A1c 6.6% Glycemic consult placed Hold metformin and statin #Hypothyroidism Recheck TSH Continue levothyroxine #Weight loss/weakness Nutrition consult PT/OT consult #GERD Continue PPI #Chronic pain/T4 compression fracture/rib fractures Oxycodone and acetaminophen prn #Depression/anxiety/PTSD Continue sertraline and bupropion Lorazepam prn Full code DVT prophylaxis: warfarin held for paracentesis, continue to hold at this time. Diet DM/heart health Admission and Anticipated Discharge Date Admission Date: May 31, 2024 Supervising Physician Co-Signing Physician Notes I personally examined the patient and verified all trivedi points of history and exam, discussed case, and agree with decision making with Dr Abdirahman Cardona and Kika Carver MS2 feeling better overall eating better. notes diarrhea - on more detailed hx small chunky stools ~4x today not that different just more frequent than what he'll often have at home - will have some days of this kind of diarrhea some days of regular stools. vitals noted nad heent nc at mmm breathing unlabored no accessory muscles good effort abd soft nd nt sepsis with gram positive bacteremia, SBP - possible that the two are directly related although easily could be separate. rocephin covering both, ID input greatly appreciated. finish out 7 days Rx (ceftriaxone/levaquin) then proph w levaquin n/v/weight loss - suspect gastritis//portal hypertensive gastropathy. on BID ppi. added BID H2, QID carafate. doing better/eating better - possibly due to benefit from this regimen vs due to feeling better from para vs both. for now would continue this regimen then slowly reduce meds over coming weeks and follow to prove +/- benefit of continuing for now. is scheduled for EGD as outpt otherwise as above chronically anticoagulated - will resume. Subjective Patient is a 68-year-old male with a past medical history pertinent for liver cirrhosis, BERNAL, portal vein thrombosis, superior mesenteric vein thrombosis, type 2 diabetes, esophageal varices treated with banding 3x, hypothyroidism, neuropathy, CKD III, and GERD on transplant list at [facility] for liver transplant presenting to the ED with SIRS. New Events: Patient states he is doing well. He states his abdominal distention has improved slightly after the paracentesis, he is no longer experiencing nausea, vomiting, chills. His appetite has returned and he almost finish his dinner last night. His only concern is that he is having some diarrhea. Denies any fevers, chills, abdominal pain. Review of Systems Review of Systems: Constitutional: Positive weight loss. Denies, fever, chills, malaise, night sweats HEENT: Denies head pain, headaches. Denies eye pain, vision loss/changes, blurry vision, double vision. Denies ear pain, and hearing loss. Denies sore throat or sore neck or sinus pain. Respiratory: Positive for cough with yellow sputum. Denies SOB, pleuritic chest pain, wheezing CV: Denies chest pain, heart palpitations, tachycardia, bradycardia, edema GI: Positive for abdominal distention and diarrhea. No nausea, vomiting today. Denies abdominal pain, constipation, hematochezia : Denies dysuria, increased urinary frequency, hematuria MSK: Denies joint pain, muscle pain, decreased ROM, Neuro: Denies altered mental status, slurred speech, numbness or tingling Physical Exam Physical Exam: General: Alert and oriented X3, appears dry and malnourished. very pleasant HEENT: Anterior Cervical Lymphadenopathy, Normocephalic, atraumatic, PERRL, Dry mucous membranes, neck is supple, trachea midline, no lymphadenopathy or thyromegaly appreciated Respiratory: Chest is CTAB without wheezes, rales, or rhonchi Cardiovascular: Heart has RRR without murmurs, rubs, or gallops. No JVD, or lower extremity edema. 2+ distal pulse palpated in all four extremities Abdomen: Abdomen is slightly less distended s/p paracentesis. No tenderness, rebound, gurarding. No hepatosplenomegaly appreciated. Normoactive bowel sounds. Negative Rosen's and McBurneys Musculoskeletal: Normal range of motion and 5/5 strength in all extremities. Psychiatric: Appropriate mood and affect. Results & Data Results & Data Vital Signs (Past 12 Hours) Vital Signs Temp Pulse Pulse Resp BP Pulse Ox O2 Del Method 06/03/24 07:40 36.6 C 65 18 96/62 L 94 Room Air 06/02/24 21:00 Room Air 06/02/24 20:27 36.7 C 71 18 92/61 L 98 Room Air Resident Activity Tracking Resident Involvement: Resident Care Provided Care Provided: Adult Hospital Medicine (4) Cirrhosis of liver Hepatic cirrhosis type: other cirrhosis Qualified Code(s): K74.69 - Other cirrhosis of liver (7) CKD (chronic kidney disease), stage III Chronic kidney disease stage 3 subtype: stage 3a (GFR 45-59) Qualified Code(s): N18.31 - Chronic kidney disease, stage 3a (9) Nausea & vomiting Vomiting type: unspecified Qualified Code(s): R11.2 - Nausea with vomiting, unspecified
--- NOTE | 2024-06-03 08:52 | Infectious Disease Progress Nt ---
Date of Service June 03, 2024 Assessment & Plan (1) Bacteremia due to Streptococcus pneumoniae: (2) Ascites: (3) Cirrhosis of liver: (4) Diarrhea: (5) Spontaneous bacterial peritonitis: Plan Problems: #Strep pneumo bacteremia #SBP #Cirrhosis with ascites #Diarrhea Micro: 06/02 Peritoneal fluid cx: pending. GS neg 06/02 BCx x2: NGTD 06/01 GI pathogen panel: neg 06/01 C diff: neg 05/31 BCx x2: Strep pneumo in 4/4 bottles (S amox/clav, levo, tetra, ceftriaxone. R TMP/SMX, cefuroxime. I penicillin oral) Abx: Zosyn 05/31 - 06/01 Vanc 05/31 Ceftriaxone 06/01 - present 68 yo M with cirrhosis, BERNAL, portal vein thrombosis, superior mesenteric vein thrombosis, esophageal varices, T2DM, CKD on liver transplant list at [facility] who presented on 05/31 with weight loss and N/V/D x 3 months, chronic cough, weakness, found to have Strep pneumo bacteremia likely 2/2 SBP. Pt with abdominal distension, some abdominal cramping, loose stools 3-4 times a day. Has chronic stable cough, mostly nonproductive. Denies recent travel, sick contacts, unusual/raw foods. On presentation, pt was afebrile, HR 115, BP 105/69. Labs with WBC 17.7, lactate 3.7. CXR negative, CT AP w contrast with moderate to large volume of ascites, stable 2.5 x 2.5 cm mass in remaining R hepatic lobe, moderate areas of colonic wall thickening suggestive of colitis. Admission blood cultures growing Strep pneumo in 4/4 bottles. TTE neg. Paracentesis performed 06/02--940 WBCs, 91% neutrophils, gram stain negative, culture pending. Discussion: Strep pneumo bacteremia likely 2/2 SBP. Pt without signs of pneumonia, with chronic stable cough and unremarkable CXR. Recommendations: -Continue ceftriaxone 2 g IV q24h -Follow-up 06/02 blood cultures to check for clearance of bacteremia -Follow-up peritoneal fluid culture (anticipate yield may be decreased as pt has been on antibiotics since 05/31) -Pending peritoneal fluid culture, anticipate ~7 day course of antibiotics through 06/06. Can switch to PO antibiotics if patient discharging (such as levofloxacin) -Will plan to start SBP ppx after completion of above course. May favor using levofloxacin 250 mg PO daily, given the Strep pneumo is resistant to TMP/SMX, and cipro has limited activity against Strep pneumo Will continue to follow. Admission and Anticipated Discharge Date Admission Date: May 31, 2024 Subjective Subsequent visit was provided via telemedicine using two-way real-time interactive telecommunication between the patient and the telemedicine provider. For the duration of the visit, the provider was performing the assessment from a different facility than the patient. This includesuse of bluetooth stethoscope forauscultationperformed by the telepresenter that the telemedicine provider can hear if described in the physical exam. Analytical Scientist contact information: Please call [facility] . (Phone Number For Physician Use Only) After establishing a telemedicine visit, patient was: Patient was verified with two unique identifiers, Patient/authorized rep acknowledged consent and understanding and Gave permission to continue telehealth session Time Spent with Patient: Subsequent => 25 min Paracentesis performed yesterday Afebrile without leukocytosis Pt reports his abdomen feels improved, less distended. He has been able to eat more in the last 2 days than he was in the last 2 weeks. Review of System A complete ROS was performed and is negative except as mentioned in the HPI. Physical Exam Physical Exam: GEN: laying in bed in NAD. RESP: No increased work of breathing NEURO: Alert and oriented. Answers all questions appropriately. Speech not slurred. PSYCH: Normal mood, affect appropriate. Results & Data Vital Signs (Past 12 Hours) Vital Signs Temp Pulse Resp BP Pulse Ox O2 Del Method 06/03/24 07:40 36.6 C 65 18 96/62 L 94 Room Air 06/02/24 21:00 Room Air Laboratory Results Short CBC 06/03/24 Range/Units 07:18 WBC 7.21 (4.8-10.8) K/ul Hgb 10.5 L (14.0-18.0) g/dl Hct 31.1 L (42.0-52.0) % Plt Count 207 (130-400) K/uL BMP 06/02/24 06/03/24 07:45 07:18 Sodium 133 L 132 L Potassium 3.2 L 3.1 L Chloride 105 102 Carbon Dioxide 25 27 BUN 19 16 Creatinine 0.78 0.86 Glucose 107 H 110 H Calcium 8.6 8.1 L Liver Function 06/02/24 06/03/24 Range/Units 07:45 07:18 Total Bilirubin 1.8 H 1.4 H (0.2-1.0) mg/dl AST 22 31 (13-39) U/L ALT 11 12 (7-52) U/L Alkaline Phosphatase 123 H 130 H (34-104) U/L Albumin 2.3 L 2.1 L (3.4-5.0) gm/dl Medications Administered Current Inpatient Medications Albuterol (Albuterol Hfa 8 Gm Inhaler) 2 puffs INH Q6H PRN PRN Reason: shortness of breath or wheezing Stop: 06/30/24 20:21 Bupropion HCl (Bupropion Sr 150 Mg Tabcr) 150 mg PO BID YENNI Stop: 06/30/24 20:59 Last Admin: 06/03/24 08:38 Dose: 150 mg Dextrose (Dextrose 50% 50 Ml Syringe) 25 - 50 ml IV UD PRN; Protocol PRN Reason: Hypoglycemia Protocol Stop: 06/30/24 19:36 Famotidine (Famotidine 20 Mg Tab) 20 mg PO BID YENNI Stop: 07/02/24 20:59 Last Admin: 06/02/24 20:55 Dose: Not Given Ferrous Sulfate (Ferrous Sulfate 325 Mg Tab) 325 mg PO BID YENNI Stop: 06/30/24 20:59 Last Admin: 06/03/24 08:39 Dose: 325 mg Furosemide (Furosemide 20 Mg Tab) 20 mg PO QAM YENNI Stop: 07/01/24 08:59 Last Admin: 06/02/24 08:23 Dose: 20 mg Glucagon (Glucagon For Inj 1 Mg Vial) 1 mg SQ UD PRN; Protocol PRN Reason: Hypoglycemia Protocol Stop: 06/30/24 19:36 Glucose (Glucose 40% Gel 15 Gm Tube) 15 - 30 gm PO UD PRN; Protocol PRN Reason: Hypoglycemia Protocol Stop: 06/30/24 19:36 Glucose (Glucose 10 Tab/Tube) 4 - 8 tab PO UD PRN; Protocol PRN Reason: Hypoglycemia Protocol Stop: 06/30/24 19:36 Hydrocodone Bit/Homatropine Methylb (Hydrocodone/Homatropine Syrup 5mg/1.5mg 5ml Udp) 5 ml PO Q6H PRN PRN Reason: cough Stop: 06/14/24 20:41 Last Admin: 06/02/24 21:00 Dose: 5 ml Ceftriaxone Sodium (Rocephin) 2,000 mg in 50 mls @ 100 mls/hr IV Q24H YENNI Stop: 06/15/24 11:59 Last Infusion: 06/02/24 14:18 Dose: Infused Insulin Aspart (Insulin Aspart Per Unit Charge) 0 units SC ACHS YENNI Stop: 06/30/24 20:59 Last Admin: 06/02/24 21:15 Dose: Not Given Levothyroxine Sodium (Levothyroxine Sodium 175 Mcg Tablet) 175 mcg PO DAILYBB YENNI Stop: 07/01/24 06:29 Last Admin: 06/03/24 05:27 Dose: 175 mcg Lorazepam (Lorazepam 0.5 Mg Tab) 0.5 mg PO DAILY PRN PRN Reason: anxiety Stop: 06/30/24 20:21 Last Admin: 06/03/24 00:58 Dose: 0.5 mg Melatonin (Melatonin 3 Mg Tab) 3 mg PO HS PRN PRN Reason: Insomnia Stop: 06/30/24 20:21 Last Admin: 06/03/24 00:58 Dose: 3 mg Miscellaneous (Carbohydrates For Hypoglycemia ) 15 - 30 gm PO UD PRN PRN Reason: Hypoglycemia Protocol Stop: 06/30/24 19:36 Miscellaneous Information (Pharmacy Glycemic Mgmt Consult) 1 each N/A UD PRN; Protocol PRN Reason: Consult Stop: 06/30/24 19:36 Ondansetron HCl (Ondansetron Inj 2 Mg/Ml 2 Ml Vial) 4 mg IV Q6H PRN PRN Reason: Nausea Stop: 06/30/24 20:21 Pantoprazole Sodium (Pantoprazole 40 Mg Tab) 40 mg PO BID [facility] Stop: 06/30/24 20:59 Last Admin: 06/03/24 08:39 Dose: 40 mg Polyethylene Glycol (Polyethylene (Miralax) 17 Gm Pack) 17 gm PO DAILY PRN PRN Reason: Constipation Stop: 06/30/24 20:21 Propranolol HCl (Propranolol Hcl 10 Mg Tab) 10 mg PO BID YENNI Stop: 06/30/24 20:59 Last Admin: 06/03/24 08:35 Dose: Not Given Sertraline HCl (Sertraline Hcl 50 Mg Tablet) 50 mg PO DAILY YENNI Stop: 07/01/24 08:59 Last Admin: 06/03/24 08:39 Dose: 50 mg Spironolactone (Spironolactone 25 Mg Tab) 50 mg PO QAM [facility] Stop: 07/01/24 08:59 Last Admin: 06/02/24 08:23 Dose: 50 mg Sucralfate (Sucralfate 1 Gm/10 Ml Udc) 1 gm PO QID [facility] Stop: 07/02/24 16:59 Last Admin: 06/03/24 08:40 Dose: 1 gm (3) Cirrhosis of liver Hepatic cirrhosis type: other cirrhosis Qualified Code(s): K74.69 - Other cirrhosis of liver (4) Diarrhea Diarrhea type: unspecified type Qualified Code(s): R19.7 - Diarrhea, unspecified
[2024-06-03] MEDS: POTASSIUM CHLORIDE CRTAB 20 MEQ TABCR PO STA (09:26)
[2024-06-03] MEDS: LOPERAMIDE HCL 2 MG CAP PO PRN (12:23)
--- NOTE | 2024-06-03 17:06 | Billing Data ---
Date of Service June 03, 2024 Coding Level of Care Code 45233 SUB INP/OBS CARE MIN
[2024-06-03] MEDS: WARFARIN SOD 5 MG TAB PO SCH (17:30)
[2024-06-03] MEDS: COUGH DROP (SUGAR FREE) LOZ 24 LOZ/1 BOX BUCCAL PRN (19:53)
[2024-06-04 08:11] LABS: Basophils # (auto) 0.05 K/uL (0.00-0.20); Basophils % (auto) 0.7 %; Eosinophils # (auto) 0.37 K/uL (0.00-0.50); Eosinophils % (auto) 5.3 %; Hematocrit (blood only) 33.2 % (42.0-52.0); Hemoglobin 11.1 g/dl (14.0-18.0); Immature Granulocytes # (auto) 0.16 K/uL (0.01-0.20); Immature Granulocytes % (auto) 2.3 %; Lymphocytes % (auto) 10.1 %; Mean Corpuscular Hgb Conc 33.4 g/dL (32.0-36.0); Mean Corpuscular Volume 98.8 fL (80.0-100.0); Mean Platelet Volume 9.8 fL (9.4-12.4); Monocytes # (auto) 1.63 K/uL (0.11-0.59); Monocytes % (auto) 23.6 %; Neutrophils # (auto) 4.01 K/uL (1.40-6.50); Platelet Count 226 K/uL (130-400); RDW Coefficient of Variation 17.1 % (11.5-14.5); RDW Standard Deviation 61.6 fL (36.4-46.3); Red Blood Count 3.36 M/uL (4.70-6.10); White Blood Count 6.92 K/ul (4.8-10.8)
[2024-06-04 08:33] LABS: BUN Creatinine Ratio 17.9 (10-20); Calcium 7.9 mg/dl (8.6-10.3); Creatinine Clr Calc Pharmacy 91.9 ml/min; Potassium 3.3 mmol/L (3.5-5.1)
[2024-06-04 08:34] LABS: INR 1.4 (0.9-1.1); Prothrombin Time 14.7 Seconds (9.0-12.0)
--- NOTE | 2024-06-04 10:30 | Infectious Disease Progress Nt ---
Date of Service June 04, 2024 Assessment & Plan (1) Bacteremia due to Streptococcus pneumoniae: (2) Ascites: (3) Cirrhosis of liver: (4) Diarrhea: (5) Spontaneous bacterial peritonitis: Plan Problems: #Strep pneumo bacteremia #SBP #Cirrhosis with ascites #Diarrhea Micro: 06/02 Peritoneal fluid cx: NGTD. GS neg 06/02 BCx x2: NGTD 06/01 GI pathogen panel: neg 06/01 C diff: neg 05/31 BCx x2: Strep pneumo in 4/4 bottles (S amox/clav, levo, tetra, ceftriaxone. R TMP/SMX, cefuroxime. I penicillin oral) Abx: Zosyn 05/31 - 06/01 Vanc 05/31 Ceftriaxone 06/01 - 06/03 Levofloxacin 06/04 - 68 yo M with cirrhosis, BERNAL, portal vein thrombosis, superior mesenteric vein thrombosis, esophageal varices, T2DM, CKD on liver transplant list at [facility] who presented on 05/31 with weight loss and N/V/D x 3 months, chronic cough, weakness, found to have Strep pneumo bacteremia likely 2/2 SBP. Pt with abdominal distension, some abdominal cramping, loose stools 3-4 times a day. Has chronic stable cough, mostly nonproductive. Denies recent travel, sick contacts, unusual/raw foods. On presentation, pt was afebrile, HR 115, BP 105/69. Labs with WBC 17.7, lactate 3.7. CXR negative, CT AP w contrast with moderate to large volume of ascites, stable 2.5 x 2.5 cm mass in remaining R hepatic lobe, moderate areas of colonic wall thickening suggestive of colitis. Admission blood cultures growing Strep pneumo in 4/4 bottles. TTE neg. Paracentesis performed 06/02--940 WBCs, 91% neutrophils, gram stain negative, culture pending. Discussion: Strep pneumo bacteremia likely 2/2 SBP. Pt without signs of pneumonia, with chronic stable cough and unremarkable CXR. Recommendations: -Pt transitioned from ceftriaxone to levofloxacin 750 mg PO daily. Can complete total 7 day course of antibiotics through 06/06. EKG with QTc 454. -Can start SBP ppx after completion of above course with levofloxacin 250 mg PO daily (note reduced dose), given the Strep pneumo is resistant to TMP/SMX, and cipro has limited activity against Strep pneumo Will sign off. Admission and Anticipated Discharge Date Admission Date: May 31, 2024 Subjective This patient recommendation is based on a telemedicine consult request which was completed asynchronously through chart review and information provided by the primary physician. The patient was not seen or examined today. The evaluation is consultative in nature and all patient care and treatment decisions can either be accepted or rejected by the patient's primary hospital-based treating physician using their own independent medical judgment for their patient. Time Spent Reviewing Chart: 11 - 20 minutes No acute events Results & Data Vital Signs (Past 12 Hours) Vital Signs Temp Pulse Pulse Resp BP Pulse Ox O2 Del Method 06/04/24 08:31 66 111/74 06/04/24 07:28 36.6 C 70 16 88/48 L 97 Room Air Laboratory Results Short CBC 06/04/24 Range/Units 07:53 WBC 6.92 (4.8-10.8) K/ul Hgb 11.1 L (14.0-18.0) g/dl Hct 33.2 L (42.0-52.0) % Plt Count 226 (130-400) K/uL BMP 06/04/24 07:53 Sodium 132 L Potassium 3.3 L Chloride 104 Carbon Dioxide 24 BUN 14 Creatinine 0.78 Glucose 116 H Calcium 7.9 L Medications Administered Current Inpatient Medications Albuterol (Albuterol Hfa 8 Gm Inhaler) 2 puffs INH Q6H PRN PRN Reason: shortness of breath or wheezing Stop: 06/30/24 20:21 Bupropion HCl (Bupropion Sr 150 Mg Tabcr) 150 mg PO BID YENNI Stop: 06/30/24 20:59 Last Admin: 06/04/24 08:32 Dose: 150 mg Dextrose (Dextrose 50% 50 Ml Syringe) 25 - 50 ml IV UD PRN; Protocol PRN Reason: Hypoglycemia Protocol Stop: 06/30/24 19:36 Famotidine (Famotidine 20 Mg Tab) 20 mg PO BID YENNI Stop: 07/02/24 20:59 Last Admin: 06/04/24 08:43 Dose: 20 mg Ferrous Sulfate (Ferrous Sulfate 325 Mg Tab) 325 mg PO BID YENNI Stop: 06/30/24 20:59 Last Admin: 06/04/24 08:33 Dose: 325 mg Furosemide (Furosemide 20 Mg Tab) 20 mg PO QAM YENNI Stop: 07/01/24 08:59 Last Admin: 06/04/24 08:35 Dose: 20 mg Glucagon (Glucagon For Inj 1 Mg Vial) 1 mg SQ UD PRN; Protocol PRN Reason: Hypoglycemia Protocol Stop: 06/30/24 19:36 Glucose (Glucose 40% Gel 15 Gm Tube) 15 - 30 gm PO UD PRN; Protocol PRN Reason: Hypoglycemia Protocol Stop: 06/30/24 19:36 Glucose (Glucose 10 Tab/Tube) 4 - 8 tab PO UD PRN; Protocol PRN Reason: Hypoglycemia Protocol Stop: 06/30/24 19:36 Hydrocodone Bit/Homatropine Methylb (Hydrocodone/Homatropine Syrup 5mg/1.5mg 5ml Udp) 5 ml PO Q6H PRN PRN Reason: cough Stop: 06/14/24 20:41 Last Admin: 06/03/24 22:25 Dose: 5 ml Insulin Aspart (Insulin Aspart Per Unit Charge) 0 units SC ACHS [facility] Stop: 06/30/24 20:59 Last Admin: 06/04/24 08:43 Dose: 3 units Levofloxacin (Levofloxacin 750 Mg Tab) 750 mg PO DAILY@1100 YENNI; Protocol Stop: 06/18/24 10:59 Levothyroxine Sodium (Levothyroxine Sodium 175 Mcg Tablet) 175 mcg PO DAILYBB [facility] Stop: 07/01/24 06:29 Last Admin: 06/04/24 05:21 Dose: 175 mcg Lorazepam (Lorazepam 0.5 Mg Tab) 0.5 mg PO DAILY PRN PRN Reason: anxiety Stop: 06/30/24 20:21 Last Admin: 06/03/24 00:58 Dose: 0.5 mg Melatonin (Melatonin 3 Mg Tab) 3 mg PO HS PRN PRN Reason: Insomnia Stop: 06/30/24 20:21 Last Admin: 06/03/24 00:58 Dose: 3 mg Menthol (Cough Drop (Sugar Free) Fam 24 Fam/1 Box) 1 fam BUCCAL PRN PRN PRN Reason: Cough Stop: 07/03/24 19:40 Last Admin: 06/03/24 19:53 Dose: 1 fam Miscellaneous (Carbohydrates For Hypoglycemia ) 15 - 30 gm PO UD PRN PRN Reason: Hypoglycemia Protocol Stop: 06/30/24 19:36 Miscellaneous Information (Pharmacy Glycemic Mgmt Consult) 1 each N/A UD PRN; Protocol PRN Reason: Consult Stop: 06/30/24 19:36 Ondansetron HCl (Ondansetron Inj 2 Mg/Ml 2 Ml Vial) 4 mg IV Q6H PRN PRN Reason: Nausea Stop: 06/30/24 20:21 Pantoprazole Sodium (Pantoprazole 40 Mg Tab) 40 mg PO BID [facility] Stop: 06/30/24 20:59 Last Admin: 06/04/24 08:32 Dose: 40 mg Polyethylene Glycol (Polyethylene (Miralax) 17 Gm Pack) 17 gm PO DAILY PRN PRN Reason: Constipation Stop: 06/30/24 20:21 Propranolol HCl (Propranolol Hcl 10 Mg Tab) 10 mg PO BID [facility] Stop: 06/30/24 20:59 Last Admin: 06/04/24 08:32 Dose: 10 mg Sertraline HCl (Sertraline Hcl 50 Mg Tablet) 50 mg PO DAILY [facility] Stop: 07/01/24 08:59 Last Admin: 06/04/24 08:33 Dose: 50 mg Spironolactone (Spironolactone 25 Mg Tab) 50 mg PO QAM [facility] Stop: 07/01/24 08:59 Last Admin: 06/04/24 08:36 Dose: 50 mg Sucralfate (Sucralfate 1 Gm/10 Ml Udc) 1 gm PO QID [facility] Stop: 07/02/24 16:59 Last Admin: 06/04/24 08:34 Dose: 1 gm Warfarin Sodium (Warfarin Sod 7.5 Mg Tab) 7.5 mg PO Th@1600 [facility] Stop: 07/04/24 15:59 Warfarin Sodium (Warfarin Sod 2.5 Mg Tab) 2.5 mg PO Mo@1600 [facility] Stop: 07/08/24 15:59 Warfarin Sodium (Warfarin Sod 5 Mg Tab) 5 mg PO SuTuWeFrSa@1600 [facility] Stop: 07/03/24 15:59 Last Admin: 06/03/24 17:30 Dose: 5 mg (3) Cirrhosis of liver Hepatic cirrhosis type: other cirrhosis Qualified Code(s): K74.69 - Other cirrhosis of liver (4) Diarrhea Diarrhea type: unspecified type Qualified Code(s): R19.7 - Diarrhea, unspecified
[2024-06-04] MEDS: POTASSIUM CHLORIDE CRTAB 20 MEQ TABCR PO STA (11:48)
[2024-06-04] MEDS: levoFLOXacin 750 MG TAB PO SCH (11:48)
[2024-06-04] MEDS: POLYETHYLENE (MIRALAX) 17 GM PACK PO ONE (11:51)
--- NOTE | 2024-06-04 15:04 | Hospitalist Progress Note ---
Date of Service June 04, 2024 Assessment & Plan (1) Ascites: (2) Bacteremia due to Streptococcus pneumoniae: (3) SIRS (systemic inflammatory response syndrome): (4) Cirrhosis of liver: (5) Superior mesenteric vein thrombosis: (6) End stage liver disease: (7) CKD (chronic kidney disease), stage III: (8) Portal hypertension: (9) Nausea & vomiting: Plan Patient is a 68-year-old male with a past medical history pertinent for liver cirrhosis, BERNAL, portal vein thrombosis, superior mesenteric vein thrombosis, type 2 diabetes, esophageal varices treated with banding 3x, hypothyroidism, neuropathy, CKD III, and GERD on transplant list at [facility] for liver transplant presenting to the ED with SIRS. #Spontaneous bacterial peritonitis #Step pneumoniae bacteremia -Blood culture 05/31/24 growing streptococcus pneumoniae -Blood Culture 06/02/24: No growth after 48hrs. -Paracentesis 06/02/24: + WBC 940, +Neutrophils 91% -Peritoneal Fluid culture 06/02/24: No preliminary growth. - - No leukocytosis -TTE 06/01 showed no evidence of vegetation - s/p Ceftriaxone and Vanco -continue PO levofloxacin. Treat through, 06/06/24 - Levofloxacin 250 mg daily for ppx after #End stage liver/cirrhosis/BERNAL/Portal hypertension/Esophageal varices/Portal vein and SMV thrombosis -Patient currently in transplant was at [facility] - Warfarin hold for paracentesis, resumed on 06/03 -Continue furosemide, propranolol, and spironolactone daily -He has EGD scheduled for 06/05/24 -Restart warfarin at home dose: 7.5mg , 2.5mg Saturday, 5mg Sat, , Sat, Sat, Sat Chronic constipation - overflow diarrhea - Uses of loperamide daily - d/c lopermide - Bowel regimen Miralax. 85 mg tonight #Chronic cough -Chronic, patient reports 6 months of occasionally productive cough -Chest x-ray negative, recently had CT chest 05/27/2024 negative for pneumonia/pleural effusion, evidence of lung disease -Continue albuterol prn -Hydrocodone syrup nightly #Anemia: -Decrease in RBCs likely due to a combination of dilutional effect, lab variation. -stable 11.1 #T2DM on insulin A1c 6.6% Sliding scale Glycemic consult placed Hold metformin and statin #Hypothyroidism Continue levothyroxine #Weight loss/weakness Nutrition consult PT/OT consult #GERD Continue PPI #Chronic pain/T4 compression fracture/rib fractures Oxycodone and acetaminophen prn #Depression/anxiety/PTSD Continue sertraline and bupropion Lorazepam prn Full code DVT prophylaxis: warfarin Diet DM/heart health Admission and Anticipated Discharge Date Admission Date: May 31, 2024 Supervising Physician Co-Signing Physician Notes I personally examined the patient and verified all trivedi points of history and exam, discussed case, and agree with decision making with Dr Abdirahman Cardona biggest concern is ongoing loose stools - same as before. discussed - most likely overflow - gave 51g miralax - no BM (making overflow even more likely dx given that a true diarrheal illness would almost certainly have been dramatically noticeable w 51g mirlax but constipation precipitating overflow could easily be refractory to that dose) vitals noted nad heent nc at mmm breathing unlabored no accessory muscles good effort abd soft nd nt sepsis with gram positive bacteremia, SBP - possible that the two are directly related although easily could be separate. levaquin covering both, ID input greatly appreciated. finish out 7 days Rx (ceftriaxone/levaquin) then proph w levaquin n/v/weight loss - suspect gastritis//portal hypertensive gastropathy. on BID ppi. added BID H2, QID carafate. doing better/eating better - possibly due to benefit from this regimen vs due to feeling better from para vs both. for now would continue this regimen then slowly reduce meds over coming weeks and follow to prove +/- benefit of continuing for now. is scheduled for EGD as outpt. continue current in this regard diarrhea - strongly suspect constipation with overflow - additional miralax otherwise as above chronically anticoagulated- resumed Subjective No acute events. Patient with constipation and overflow diarrhea. Not comfortable going home Review of Systems Review of Systems: as per hpi Physical Exam Physical Exam: General: Alert and oriented X3, appears dry and malnourished. very pleasant HEENT: Anterior Cervical Lymphadenopathy, Normocephalic, atraumatic, PERRL, Dry mucous membranes, neck is supple, trachea midline, no lymphadenopathy or thyromegaly appreciated Respiratory: Chest is CTAB without wheezes, rales, or rhonchi Cardiovascular: Heart has RRR without murmurs, rubs, or gallops. No JVD, or lower extremity edema. 2+ distal pulse palpated in all four extremities Abdomen: Abdomen is slightly less distended s/p paracentesis. No tenderness, rebound, gurarding. No hepatosplenomegaly appreciated. Normoactive bowel sounds. Negative Rosen's and McBurneys Musculoskeletal: Normal range of motion and 5/5 strength in all extremities. Psychiatric: Appropriate mood and affect. Results & Data Results & Data Vital Signs (Past 12 Hours) Vital Signs Temp Pulse Pulse Resp BP Pulse Ox O2 Del Method 06/04/24 13:08 Room Air 06/04/24 08:31 66 111/74 06/04/24 07:28 36.6 C 70 16 88/48 L 97 Room Air Resident Activity Tracking Resident Involvement: Resident Care Provided Care Provided: Adult Hospital Medicine (4) Cirrhosis of liver Hepatic cirrhosis type: other cirrhosis Qualified Code(s): K74.69 - Other cirrhosis of liver (7) CKD (chronic kidney disease), stage III Chronic kidney disease stage 3 subtype: stage 3a (GFR 45-59) Qualified Code(s): N18.31 - Chronic kidney disease, stage 3a (9) Nausea & vomiting Vomiting type: unspecified Qualified Code(s): R11.2 - Nausea with vomiting, unspecified
[2024-06-04] MEDS ORDERED: POLYETHYLENE (MIRALAX) 17 GM PACK PO SCH (15:15)
--- NOTE | 2024-06-04 15:17 | Billing Data ---
Date of Service June 04, 2024 Coding Level of Care Code 30915 SUB INP/OBS CARE MIN
[2024-06-04] MEDS: POLYETHYLENE (MIRALAX) 17 GM PACK PO STA (16:13)
[2024-06-04] MEDS: WARFARIN SOD 7.5 MG TAB PO SCH (17:43)
[2024-06-05 07:16] LABS: Basophils # (auto) 0.07 K/uL (0.00-0.20); Eosinophils # (auto) 0.43 K/uL (0.00-0.50); Eosinophils % (auto) 6.2 %; Hematocrit (blood only) 32.3 % (42.0-52.0); Hemoglobin 10.7 g/dl (14.0-18.0); Immature Granulocytes # (auto) 0.34 K/uL (0.01-0.20); Immature Granulocytes % (auto) 4.9 %; Lymphocytes % (auto) 11.6 %; Mean Corpuscular Hemoglobin 33.2 pg (25.0-34.0); Mean Corpuscular Hgb Conc 33.1 g/dL (32.0-36.0); Mean Corpuscular Volume 100.3 fL (80.0-100.0); Mean Platelet Volume 10.1 fL (9.4-12.4); Monocytes # (auto) 1.73 K/uL (0.11-0.59); Monocytes % (auto) 25.1 %; Neutrophils # (auto) 3.52 K/uL (1.40-6.50); Neutrophils % (auto) 51.2 %; Platelet Count 238 K/uL (130-400); RDW Coefficient of Variation 17.3 % (11.5-14.5); RDW Standard Deviation 61.9 fL (36.4-46.3); Red Blood Count 3.22 M/uL (4.70-6.10); White Blood Count 6.89 K/ul (4.8-10.8)
[2024-06-05 07:30] LABS: BUN Creatinine Ratio 15.2 (10-20); Creatinine Clr Calc Pharmacy 77.9 ml/min; Potassium 3.8 mmol/L (3.5-5.1)
[2024-06-05 07:37] LABS: INR 1.7 (0.9-1.1); Prothrombin Time 17.4 Seconds (9.0-12.0)
[2024-06-05 07:53] VITALS: TEMP 98.1
[2024-06-05] MEDS: POLYETHYLENE (MIRALAX) 17 GM PACK PO ONE (08:57)
--- NOTE | 2024-06-05 12:00 | Pharmacy Report ---
Pharmacy Glycemic Short Note 2 - Date of Service June 05, 2024 - Glycemic Short BSG Results (Last 24 hours): 06/04/24 06/04/24 06/05/24 16:58 20:52 06:38 Glucose 126 H POC Glucose 103 H 165 H 06/05/24 06/05/24 07:59 11:51 Glucose POC Glucose 121 H 175 H OUTPATIENT ANTIDIABETIC REGIMEN: * Lantus 4 units SQ QAM * Insulin aspart 12 units SQ daily * metformin 1000mg PO BID HbA1c: 6.1% on 06/01/24 ASSESSMENT: 06/05 * BSGs have been stable [phone] mg/dL yesterday with 10 units of lantus * Continue with current novolog parameters * Continue to hold basal, fasting in goal range 06/01 * 68 year old male presented to the ED on 05/31 due to weight loss with associated nausea, vomiting, and diarrhea for the past 3 months with depleted energy the previous 3-4 days. PHM pertinent for liver cirrhosis, BERNAL, esophageal varices, CKD III, portal and superior mesenteric vein thrombi. Pharmacy has been consulted for glycemic management while he is admitted * BSG last evening was 144mg/dL. A weight based bolus insulin regimen with a stress of ~2 was started. * He only received 1 unit of bolus insulin last evening and his fasting BSG this morning was 117mg/dL. Will not start basal insulin at this time as patient is not eating. * He is currently on zosyn + vancomycin empirically and continues on plasmalyte at 100ml/hr. PLAN FOR INPATIENT GLYCEMIC CONTROL: * Hold outpatient diabetes medications * Basal insulin * Hold * Bolus insulin * NovoLog per scale ACHS or Q6hrs while NPO * Goal Range: Low 110 mg/dL - High 140 mg/dL * Correction Factor: 35 mg/dL/unit * Nutritional / Prandial insulin per carb ratio of 1 unit per 15 grams CHO consumed
--- NOTE | 2024-06-05 16:04 | Hospitalist Progress Note ---
Date of Service June 05, 2024 Assessment & Plan (1) Ascites: (2) Bacteremia due to Streptococcus pneumoniae: (3) SIRS (systemic inflammatory response syndrome): (4) Cirrhosis of liver: (5) Superior mesenteric vein thrombosis: (6) End stage liver disease: (7) CKD (chronic kidney disease), stage III: (8) Portal hypertension: (9) Nausea & vomiting: Plan Patient is a 68-year-old male with a past medical history pertinent for liver cirrhosis, BERNAL, portal vein thrombosis, superior mesenteric vein thrombosis, type 2 diabetes, esophageal varices treated with banding 3x, hypothyroidism, neuropathy, CKD III, and GERD on transplant list at [facility] for liver transplant. Here with nausea/vomiting/chills. Found to have strep bacteremia likely SBP as the source. #Spontaneous bacterial peritonitis #Step pneumoniae bacteremia BCx 05/31/24 strep pneumo - resistant to Bactrim, Penicillin, and Cefuroxime BCx 06/02/24: NGTD x 48H Paracentesis: WBC 940 with 91% neutrophils Plan to continue therapeutic abx through 06/06/2024 with ppx dosing of Levofloxacin 250 mg daily for the foreseeable future. Will need more frequent INR monitoring while on Levoquin. #End stage liver/cirrhosis/BERNAL/Portal hypertension/Esophageal varices/Portal vein and SMV thrombosis Patient on transplant via [place]. MELD labs trended daily. On warfarin for treatment of portal vein/SMV thrombosis. On furosemide/spironolactone 20mg/50 mg and propranolol for stabilization of the esophageal varices. Paracentesis with 3L removal 06/02/24. Does need endoscopy for surveillance. Warfarin - 7.5mg , 2.5mg Saturday, 5mg Sat, , Sat, Sat, Sat. Would recommend discussing recent hospitalization and SBP with transplant team as it may effect where he is listed. #Chronic constipation #Overflow Diarrhea Reviewed CT which shows significant stool burden. Patient using Imodium frequently at home. Likely having overflow diarrhea. Aggressive MiraLAX dosing with Golytely. Hopefully d/c tomorrow. d/c Imodium/constipating medications daily MiraLAX - goal 1-2 soft formed BM daily #Chronic cough Chronic, patient reports 6 months of occasionally productive cough. Chest x-ray negative, recently had CT chest 05/27/2024 negative for pneumonia/pleural effusion, evidence of lung disease Continue albuterol prn Hydrocodone syrup nightly - may be contributing to constipation - would recommend d/c #Anemia: Decrease in RBCs likely due to a combination of dilutional effect, lab variation. Stable #T2DM on insulin A1c 6.6% Basal with bolus SSI while inpatient. Hold metformin and statin - resume on d/c #Hypothyroidism Continue levothyroxine #Weight loss/weakness Nutrition consult. PT/OT consult #GERD Continue PPI #Chronic pain/T4 compression fracture/rib fractures Oxycodone and acetaminophen prn #Depression/anxiety/PTSD Continue sertraline and bupropion. Lorazepam prn Full code DVT prophylaxis: warfarin Diet DM/heart health Admission and Anticipated Discharge Date Admission Date: May 31, 2024 Supervising Physician Co-Signing Physician Notes I personally examined the patient and verified all trivedi points of history and exam, discussed case, and agree with decision making with Dr Treadwell still not a lot of BM- 4 moderate episodes of mostly watery diarrhea. belly feeling about the same vitals noted nad heent nc at mmm breathing unlabored no accessory muscles good effort skin without rashes pallor or icterus sepsis with gram positive bacteremia, SBP - possible that the two are directly related although easily could be separate. levaquin covering both, ID input greatly appreciated. finish out 7 days Rx (ceftriaxone/levaquin) then proph w levaquin (full dosing through 06/06) n/v/weight loss - suspect gastritis//portal hypertensive gastropathy. on BID ppi. added BID H2, QID carafate. doing better/eating better - possibly due to benefit from this regimen vs due to feeling better from para vs both. for now would continue this regimen then slowly reduce meds over coming weeks and follow to prove +/- benefit of continuing for now. clearing bowels will hopefully help w PO intake as well is scheduled for EGD as outpt. continue current in this regard diarrhea - strongly suspect constipation with overflow - did not respond well to miralax (and also if dx was wrong and was truly a diarrheal illness also didn't respond robustly as to suggest constipation w overflow was not the correct dx - ie his uptick in watery diarrhea fits with constipation/overflow that has yet to be remedied) - discussed options - home/ongoing gentler bowel regimen vs bowel prep type regimen while in hospital - he prefers to just do the bowel prep in the hopes that it fully remedies the problem - ordered. after would then probably have on some degree of chronic lower dose bowel regimen (~17g BID miralax) to prevent recurrence otherwise as above chronically anticoagulated- resumed - following INR Subjective No acute events. Patient with constipation and overflow diarrhea. Having some BM but feels there's more to be done and would like to go pretty hard on medications. Review of Systems 2 Review of Systems: See HPI Physical Exam 2 Physical Exam: Gen: well appearing patient in NAD HEENT: AT LA MMM Resp: no increased work of breathing CV: clinically well perfused Abd: +BS, soft, firm, no peritoneal signs, non-distended MSK: no obvious deformities Skin: no rashes or bruising Neuro: alert and oriented Psych: appropriate mood and affect Results & Data Results & Data Vital Signs (Past 12 Hours) Vital Signs Temp Pulse Resp BP Pulse Ox O2 Del Method 06/05/24 15:35 36.7 C 57 L 18 108/66 95 Room Air 06/05/24 07:53 Room Air 06/05/24 07:00 36.7 C 64 18 100/65 94 Room Air Laboratory Results 06/05/24 06:38 06/05/24 06:38 Resident Activity Tracking Resident Involvement: Resident Care Provided Care Provided: Adult Hospital Medicine (4) Cirrhosis of liver Hepatic cirrhosis type: other cirrhosis Qualified Code(s): K74.69 - Other cirrhosis of liver (7) CKD (chronic kidney disease), stage III Chronic kidney disease stage 3 subtype: stage 3a (GFR 45-59) Qualified Code(s): N18.31 - Chronic kidney disease, stage 3a (9) Nausea & vomiting Vomiting type: unspecified Qualified Code(s): R11.2 - Nausea with vomiting, unspecified
[2024-06-05] MEDS: LAVAGE SOLUTION 4000ML PO ONE (16:54)
[2024-06-05] MEDS: ONDANSETRON INJ 2 MG/ML 2 ML VIAL IV PRN (16:58)
--- NOTE | 2024-06-05 17:26 | Billing Data ---
Date of Service June 05, 2024 Coding Level of Care Code 68970 SUB INP/OBS CARE MIN
[2024-06-05 20:39] VITALS: RESP 16
--- NOTE | 2024-06-06 07:01 | Discharge Summary ---
Date of Service June 06, 2024 Admission HPI Per Admitting Provider Patient is a 68-year-old male with a past medical history pertinent for liver cirrhosis, BERNAL, portal vein thrombosis, superior mesenteric vein thrombosis, type 2 diabetes, esophageal varices, hypothyroidism, neuropathy, CKD III, and GERD on transplant list at [facility] for liver transplant. Patient reports that he has been suffering from weight loss with associated nausea, vomiting, and diarrhea for the past 3 months. He is also had a chronic cough that has been worked up without etiology, occasionally productive with thick sputum. He reports his energy has been depleted the past 3 to 4 days. He went out to eat with his for their anniversary on 05/29/2024 and barely ate due to anorexia. He reports intermittent chills but no reported fevers. Patient reports that he been compliant with his medications, reportedly all of them, and ultimately has failure to thrive. Admission Exam Per Admitting Provider Constitutional: + frail appearing and + underweight; no altered mental status and not lethargic ENMT: external ear and nose normal, oropharynx normal Ears: no external ear abnormality Nose: + dry nasal mucous membranes; no external nose abnormality and no nasal discharge Mouth: + dry oral mucous membranes Neck: trachea midline, no thyromegaly Thyroid: no thyromegaly and no thyroid mass Respiratory: normal respiratory effort, lungs clear to auscultation Auscultation: no rales, no rhonchi and no wheezes Cardiovascular: Rate/Rhythm: regular rate and + tachycardic Heart Sounds: normal S1 and normal S2; no murmur Gastrointestinal (Abdomen): Inspection/Auscultation: + abdomen distended and normal bowel sounds Percussion/Palpation: + abdomen tender (RUQ) and + hepatomegaly; no guarding and no fluid wave Musculoskeletal: Extremities: no elbow/forearm abnormality and no lower leg abnormality Neurologic: moves all extremities; not confused Speech / Cognition: normal speech Motor/Sensory: no tremor and no asterixis Cranial Nerves: PERRL and normal hearing Psychiatric: Orientation: alert and oriented x 3 Eye Contact: good eye contact Speech: normal rate/rhythm/volume of speech Affect: mood congruent with affect Cognition: recent memory grossly intact Insight: good insight Lymphatic: no cervical lymphadenopathy Principal Diagnosis Spontaneous bacterial peritonitis Discharge Exam Constitutional: well-appearing, no acute distress HEENT: NCAT, no conjunctival injection CV: regular rhythm, no murmur appreciated, extremities well-perfused, no LE edema Resp: CTABL, no wheezes/rales/rhonchi appreciated, no increased work of breathing GI: soft, nondistended, nontender, BS normoactive MSK: no gross deformities appreciated Skin: warm, dry, no rash appreciated Neuro: alert, oriented, no focal neurologic deficit appreciated Discharge Data Allergies Allergy/AdvReac Type Severity Reaction Status Date / Time exenatide [From [place]] AdvReac Intermediate Diarrhea Verified 05/21/24 10:55 Consultations 05/31/24 17:42 ED Decision to Admit Stat 06/01/24 08:06 Consult Infectious Diseases Routine Ordered Studies 05/31/24 19:36 CT abd pelvis IV con only Stat 06/02/24 08:40 IR paracentesis abd w/img US Routine Hospital Course (1) Ascites: (2) Bacteremia due to Streptococcus pneumoniae: (3) SIRS (systemic inflammatory response syndrome): (4) Cirrhosis of liver: (5) Superior mesenteric vein thrombosis: (6) End stage liver disease: (7) CKD (chronic kidney disease), stage III: (8) Portal hypertension: (9) Nausea & vomiting: Plan Patient is a 68-year-old male with a past medical history pertinent for liver cirrhosis, BERNAL, portal vein thrombosis, superior mesenteric vein thrombosis, type 2 diabetes, esophageal varices treated with banding 3x, hypothyroidism, neuropathy, CKD III, and GERD on transplant list at [facility] for liver transplant. Here with nausea/vomiting/chills. Found to have strep bacteremia likely SBP as the source. #Spontaneous bacterial peritonitis #Step pneumoniae bacteremia BCx 05/31/24 strep pneumo - resistant to Bactrim, Penicillin, and Cefuroxime BCx 06/02/24: NGTD x 48H Paracentesis: WBC 940 with 91% neutrophils Plan to continue therapeutic abx through 06/06/2024 with ppx dosing of Levofloxacin 250 mg daily for the foreseeable future. Will need more frequent INR monitoring while on Levoquin. Follow-up with PCP. #End stage liver/cirrhosis/BERNAL/Portal hypertension/Esophageal varices/Portal vein and SMV thrombosis Patient on transplant via [place]. MELD labs trended daily. On warfarin for treatment of portal vein/SMV thrombosis. On furosemide/spironolactone 20mg/50 mg and propranolol for stabilization of the esophageal varices. Paracentesis with 3L removal 06/02/24. Does need endoscopy for surveillance. Warfarin - 7.5mg , 2.5mg Saturday, 5mg Sat, , Sat, Sat, Sat. Would recommend discussing recent hospitalization and SBP with transplant team as it may effect where he is listed. #Chronic constipation #Overflow Diarrhea Reviewed CT which shows significant stool burden. Patient using Imodium frequently at home. Likely having overflow diarrhea. Aggressive MiraLAX dosing with Golytely. Able to go with GoLytely. d/c Imodium/constipating medications #Chronic cough Chronic, patient reports 6 months of occasionally productive cough. Chest x-ray negative, recently had CT chest 05/27/2024 negative for pneumonia/pleural effusion, evidence of lung disease Continue albuterol prn Hydrocodone syrup nightly - may be contributing to constipation - would recommend d/c. Follow-up with PCP. #Anemia: Decrease in RBCs likely due to a combination of dilutional effect, lab variation. Stable. Follow-up with PCP. #T2DM on insulin A1c 6.6% Basal with bolus SSI while inpatient. Hold metformin and statin - resume on d/c #Hypothyroidism Continue levothyroxine #Weight loss/weakness -Nutrition PT OT on patient. Recommend follow-up with PCP. #GERD Continue PPI #Chronic pain/T4 compression fracture/rib fractures Oxycodone and acetaminophen prn #Depression/anxiety/PTSD Continue sertraline and bupropion. Lorazepam prn Full code DVT prophylaxis: warfarin Diet DM/heart health Total Time Total Time Spent Total Time Spent (In Minutes): Please refer to attendings attestation Discharge Plan Discharge Items Patient Disposition: Home - Self-Care Reason For Visit: COUGH,WEAKNESS Discharge Diagnosis: Bacteremia Spontaneous bacterial peritonitis Activity: Per Instructions section Non-emergency contact: Primary Care Provider Call non-emergency contact if: you have any medication questions, your symptoms worsen, your pain is not controlled and your pain is worsening Follow-up/Referrals: Neelam Cooper CRNP [Primary Care Provider] - Diet: Carb Consistent or DM2 and Low Sodium (2gm) Addtl Attending Provider Instructions: You were in the hospital due to bacteremia (infection of your blood).Likely the source was spontaneous bacterial peritonitis this is a bacterial infection of the ascitic fluid (fluid that buildup in the abdomen) We will sent you with the follow antibiotics: - Take Levofloxacin 250 mg daily -- this is for prophylaxis to avoid future spontaneous bacterial peritonitis Follow up with your PCP within a week Follow up with your Anticoagulation clinic Pending Studies at Discharge: No Stand-Alone Forms: My [facility], Smoking Cessation Medications and DC Order Prescriptions: New levofloxacin 750 mg Tablet 750 mg PO DAILY@1100 Qty: 2 0RF levofloxacin 250 mg tablet 250 mg PO DAILY Qty: 30 0RF Continued biotin 10 mg tablet 10 mg PO QAM Qty: 30 0RF ferrous sulfate [iron] 325 mg (65 mg iron) tablet 325 mg PO BID Qty: 60 0RF levothyroxine 175 mcg tablet 175 mcg PO QAM Qty: 90 3RF simvastatin 20 mg tablet 20 mg PO QAM Qty: 90 3RF spironolactone 50 mg tablet 50 mg PO QAM Qty: 90 3RF Rx Instructions: TAKE 1 TABLET BY MOUTH DAILY. bupropion HCl 150 mg tablet sustained-release 12 hr 150 mg PO BID Qty: 180 3RF Rx Instructions: TAKE 1 TABLET BY MOUTH TWICE DAILY. metformin 1,000 mg tablet 1,000 mg PO BID Qty: 180 3RF Hold Instructions: Resume on 02/10/24. Please resume after discussing with your PCP whether to continue with metformin given the fact that you have liver cirrhosis furosemide 20 mg tablet 20 mg PO QAM Qty: 90 3RF omeprazole 40 mg capsule,delayed release(DR/EC) 40 mg PO BID Qty: 180 3RF Rx Instructions: TAKE 1 CAPSULE BY MOUTH TWICE DAILY FOR STOMACH ACID. (DME) pen needle, diabetic [TechLITE Pen Needle] 31 gauge x 5/16" needle See Rx Instructions .Route Qty: 100 11RF Rx Instructions: use BID with insulin injections ondansetron 4 mg tablet,disintegrating 4 mg translingual Q6H PRN (Reason: NAUSEA/VOMITING) Qty: 30 4RF Rx Instructions: DISSOLVE 1 TABLET ON THE TONGUE EVERY 6 HOURS NEEDED. propranolol 10 mg tablet 10 mg PO BID Qty: 60 4RF sertraline 50 mg tablet 50 mg PO DAILY Qty: 90 3RF Rx Instructions: will cont on welbutrin lorazepam 0.5 mg tablet 0.5 mg PO DAILY PRN (Reason: anxiety) Qty: 30 1RF albuterol sulfate 90 mcg/actuation HFA aerosol inhaler 2 inh inhalation Q6H PRN (Reason: shortness of breath or wheezing) Qty: 8.5 1RF cyanocobalamin (vitamin B-12) 1,000 mcg capsule 1,000 mcg PO QAM (DME) OneTouch Ultra Blue Test Strip Strip See Rx Instructions .ROUTE .MEDSUPPLY Dose Instruction: As directed Rx Instructions: TEST 3 TIMES A DAY FOR MULTIPLE DAILY INSULIN INJECTIONS (DME) Dexcom G7 [employer] Misc See Rx Instructions .Route Rx Instructions: As directed hydrocodone-homatropine [Hycodan] 5-1.5 mg/5 mL (5 mL) syrup 5 ml PO Q6H PRN (Reason: cough) Qty: 200 0RF insulin aspart U-100 [Novolog FlexPen U-100 Insulin] 100 unit/mL (3 mL) insulin pen 12 unit subcut DAILY Qty: 30 3RF cholecalciferol (vitamin D3) [Vitamin D3] 2,000 unit capsule 1,000 unit PO BID calcium carbonate [Calcium 600] 600 mg calcium (1,500 mg) Tablet 600 mg PO BID acetaminophen [Tylenol Extra Strength] 500 mg Tablet 500 mg PO Q6H PRN (Reason: Pain) insulin glargine [Lantus Solostar U-100 Insulin] 100 unit/mL (3 mL) insulin pen 4 unit subcut QAM warfarin 7.5 mg Tablet 7.5 mg PO DIRECTED Rx Instructions: ONLY ON THURSDAYS warfarin 2.5 mg tablet 2.5 mg PO DIRECTED Protocol: Dose Management Condition: Saturday Dose/Route: 5 mg Instruction: 1 x 5 mg tablet Condition: Saturday Dose/Route: 2.5 mg Instruction: 1 x 2.5 mg tablet Condition: Saturday Dose/Route: 5 mg Instruction: 1 x 5 mg tablet Condition: Saturday Dose/Route: 5 mg Instruction: 1 x 5 mg tablet Condition: Dose/Route: 7.5 mg Instruction: 1 x 2.5 mg tablet, 1 x 5 mg tablet Condition: Saturday Dose/Route: 5 mg Instruction: 1 x 5 mg tablet Condition: Saturday Dose/Route: 5 mg Instruction: 1 x 5 mg tablet Protocol Text: Adjustment Start Date: Saturday02/11/24 INR Value: 1.8 INR Date: 02/11/24 Recheck Date: 02/18/24 Rx Instructions: 2.5 MG ON SAT warfarin 5 mg tablet 5 mg PO DIRECTED Protocol: Dose Management Condition: Saturday Dose/Route: 5 mg Instruction: 1 x 5 mg tablet Condition: Saturday Dose/Route: 2.5 mg Instruction: 1 x 2.5 mg tablet Condition: Saturday Dose/Route: 5 mg Instruction: 1 x 5 mg tablet Condition: Saturday Dose/Route: 5 mg Instruction: 1 x 5 mg tablet Condition: Dose/Route: 7.5 mg Instruction: 1 x 2.5 mg tablet, 1 x 5 mg tablet Condition: Saturday Dose/Route: 5 mg Instruction: 1 x 5 mg tablet Condition: Saturday Dose/Route: 5 mg Instruction: 1 x 5 mg tablet Protocol Text: Adjustment Start Date: Saturday02/11/24 INR Value: 1.8 INR Date: 02/11/24 Recheck Date: 02/18/24 Rx Instructions: SAT, SAT, SAT, SAT, SAT Discharge Orders: Discharge Order (Routine); Ordered 06/06/24 Ordered By: Warren Betts/Other Patient Handouts: Managing Type 2 Diabetes Admission Data Admit Date/Time: 05/31/24 18:34 Attending Provider: Armando Viveros Admit Provider: Lillian Anderson Primary Care Provider: Neelam Cooper Other Providers: Manisha Cooper Other Interventions: Discharge Summary Assessment (RN) Last Done: 06/06/24 09:54 Supervising Physician Co-Signing Physician Notes I personally examined the patient and verified all trivedi points of history and exam, discussed case, and agree with decision making with Dr Peralta large amount of BM then eventually clearer. belly feels better. vitals noted nad heent nc at mmm breathing unlabored no accessory muscles good effort skin without rashes pallor or icterus sepsis with gram positive bacteremia, SBP - possible that the two are directly related although easily could be separate. levaquin covering both, ID input greatly appreciated. finished out 7 days Rx (ceftriaxone/levaquin) then proph w levaquin (full dosing through 06/06 - home on proph dosing) n/v/weight loss - suspect gastritis//portal hypertensive gastropathy. on BID ppi. added BID H2, QID carafate. doing better/eating better - possibly due to benefit from this regimen vs due to feeling better from para vs both. for now would continue this regimen then slowly reduce meds over coming weeks and follow to prove +/- benefit of continuing for now. clearing bowels will hopefully help w PO intake as well is scheduled for EGD as outpt. safe for home/outpt f/u diarrhea - strongly suspect constipation with overflow - progress w larger doses of miralax (inadequte BM) followed by golytely (large amount of brown stool before clear and belly feeling better after) suggests this was the case. discussed giving intestines a few days off, but then in ~3-4 days staring miralax daily-BID to prevent recurrence of constipation/overflow diarrhea in the future otherwise as above chronically anticoagulated- resumed - following INR - outpt f/u
[2024-06-06 07:36] LABS: Hematocrit (blood only) 33.5 % (42.0-52.0); Hemoglobin 11.3 g/dl (14.0-18.0); Mean Corpuscular Hemoglobin 33.5 pg (25.0-34.0); Mean Corpuscular Hgb Conc 33.7 g/dL (32.0-36.0); Mean Corpuscular Volume 99.4 fL (80.0-100.0); Mean Platelet Volume 9.7 fL (9.4-12.4); Platelet Count 243 K/uL (130-400); RDW Coefficient of Variation 17.6 % (11.5-14.5); RDW Standard Deviation 61.2 fL (36.4-46.3); Red Blood Count 3.37 M/uL (4.70-6.10); White Blood Count 6.44 K/ul (4.8-10.8)
[2024-06-06 08:19] LABS: Basophils # (auto) 0.06 K/uL (0.00-0.20); Basophils % (auto) 0.9 %; Eosinophils % (auto) 6.2 %; Immature Granulocytes # (auto) 0.41 K/uL (0.01-0.20); Immature Granulocytes % (auto) 6.4 %; Lymphocytes # (auto) 0.86 K/uL (1.20-3.40); Lymphocytes % (auto) 13.4 %; Monocytes # (auto) 1.42 K/uL (0.11-0.59); Neutrophils # (auto) 3.29 K/uL (1.40-6.50); Neutrophils % (auto) 51.1 %
[2024-06-06 08:27] VITALS: O2SAT 95
[2024-06-06 09:55] VITALS: BP 108/66; PULSE 66
--- NOTE | 2024-06-06 15:36 | Billing Data ---
Date of Service June 06, 2024 Coding Level of Care Code 10204 IN/OBS DISCH 30 MIN/LESS
[2024-06-08] MEDS ORDERED: WARFARIN SOD 2.5 MG TAB PO SCH (16:00)
== END 2024-06-06 11:23 | disposition home or self-care (01) | DRG 871 ==
LOC: ED 15:22 → EDINP 18:34 → SUATTDRO 18:34 → 3N 20:23 → 3W 06-01 06:07

== ENCOUNTER 2024-06-17 10:46 | Observation (INO) ==
[2024-06-17 12:26] LABS: Basophils # (auto) 0.07 K/uL (0.00-0.20); Basophils % (auto) 0.8 %; Eosinophils # (auto) 0.12 K/uL (0.00-0.50); Eosinophils % (auto) 1.4 %; Hematocrit (blood only) 36.2 % (42.0-52.0); Hemoglobin 11.9 g/dl (14.0-18.0); Immature Granulocytes # (auto) 0.05 K/uL (0.01-0.20); Immature Granulocytes % (auto) 0.6 %; Lymphocytes # (auto) 0.64 K/uL (1.20-3.40); Lymphocytes % (auto) 7.3 %; Mean Corpuscular Hemoglobin 34.2 pg (25.0-34.0); Mean Corpuscular Hgb Conc 32.9 g/dL (32.0-36.0); Monocytes # (auto) 1.27 K/uL (0.11-0.59); Monocytes % (auto) 14.6 %; Neutrophils # (auto) 6.57 K/uL (1.40-6.50); Neutrophils % (auto) 75.3 %; Platelet Count 370 K/uL (130-400); RDW Coefficient of Variation 17.6 % (11.5-14.5); RDW Standard Deviation 66.9 fL (36.4-46.3); Red Blood Count 3.48 M/uL (4.70-6.10); White Blood Count 8.72 K/ul (4.8-10.8)
--- NOTE | 2024-06-17 12:42 | XRay Report ---
XR chest 1V portable CLINICAL HISTORY: Sepsis COMPARISON STUDY: 05/31/2024 FINDINGS: Single view of the chest demonstrates persistently high left diaphragm with chronic costoph renic angle blunting suggesting probable fibrosis. There is a discoid atelectasis present at the left lung base on the present examination. There is a right diaphragmatic eventration. The right lung is clear. Heart size and pulmonary vascularity are unremarkable. Right lower lobe granuloma once again n oted. IMPRESSION: Minor discoid atelectasis left lung base; otherwise stable exam with no acute process id entified. ACT 112: Negative or not required by law. Electronically signed by: Magda Owens M.D. 06/17/2024 12:41 PM
[2024-06-17 13:13] LABS: INR 3.1 (0.9-1.1); Prothrombin Time 30.8 Seconds (9.0-12.0)
--- NOTE | 2024-06-17 13:48 | Emergency Department Note ---
History of Present Illness General Chief complaint: Referred by Doctor Stated complaint: ABDOMINAL DISTENSION - REF BY Time Seen by Provider: 06/17/24 11:27 Source: patient Mode of arrival: ambulatory Limitations: no limitations History of Present Illness Patient with h/o liver cirrhosis, BERNAL, portal vein thrombosis, superior mesenteric vein thrombosis, type 2 DM, esophageal varices, hypothyroidism, neuropathy, CKD III, and GERD on transplant list at [facility] for liver transplant who presents with abdominal swelling and difficulty breathing. He says for the past week he has noticed increased weight gain and abdominal distention. Recently treated for SBP and discharged on Levaquin. Denies any fevers, chills, nausea, vomiting. No change in bowel or bladder habits. Denies any abdominal pain. He has had 2 prior paracentesis in the past and follows with hepatology at [facility]. Home Medications Medication Instructions Recorded Confirmed Type biotin 10 mg tablet 10 mg PO QAM #30 tabs 08/11/18 06/17/24 Rx ferrous sulfate 325 mg (65 mg 325 mg PO BID #60 tabs 08/11/18 06/17/24 Rx iron) tablet (iron) cyanocobalamin (vitamin B-12) 1,000 mcg PO QAM 11/25/18 06/17/24 History 1,000 mcg capsule calcium carbonate (Calcium 600) 600 mg PO BID 12/25/18 06/17/24 History cholecalciferol (vitamin D3) 50 1,000 unit PO BID 12/25/18 06/17/24 History mcg (2,000 unit) capsule (Vitamin D3) acetaminophen 500 mg tablet 500 mg PO Q6H PRN Pain 07/03/20 06/17/24 History (Tylenol Extra Strength) blood sugar diagnostic (OneTouch 02/10/21 06/17/24 History Ultra Blue Test Strip) blood-glucose,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/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 and 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,cont 01/03/23 06/17/24 History (Dexcom G7 Cable Hooker) simvastatin 20 mg tablet 20 mg PO QAM #90 tabs 08/22/23 06/17/24 Rx bupropion HCl 150 mg tablet,12 hr 150 mg PO BID #180 tabs 09/02/23 06/17/24 Rx sustained-release metformin 1,000 mg tablet 1,000 mg PO BID #180 tabs 09/02/23 06/17/24 Rx spironolactone 50 mg tablet 50 mg PO QAM #90 tabs 09/02/23 06/17/24 Rx furosemide 20 mg tablet 20 mg PO QAM #90 tabs 09/05/23 06/17/24 Rx omeprazole 40 mg capsule,delayed 40 mg PO BID #180 caps 09/09/23 06/17/24 Rx release pen needle, diabetic 31 gauge x #100 ea 10/09/23 06/17/24 Rx 5/16" (TechLITE Pen Needle) ondansetron 4 mg disintegrating 4 mg translingual Q6H PRN 01/13/24 06/17/24 Rx tablet NAUSEA/VOMITING #30 tabs insulin glargine 100 unit/mL (3 4 unit subcut UD 01/30/24 06/17/24 History mL) subcutaneous pen (Lantus Solostar U-100 Insulin) propranolol 10 mg tablet 10 mg PO BID #60 tabs 03/26/24 06/17/24 Rx sertraline 50 mg tablet 50 mg PO DAILY #90 tabs 04/13/24 06/17/24 Rx lorazepam 0.5 mg tablet 0.5 mg PO DAILY PRN anxiety #30 05/08/24 06/17/24 Rx tabs albuterol sulfate 90 mcg/actuation 2 inh inhalation Q6H PRN shortness 05/11/24 06/17/24 Rx aerosol inhaler of breath or wheezing #8.5 grams hydrocodone-homatropine 5 mg-1.5 5 ml PO Q6H PRN cough #200 mL 05/21/24 06/17/24 Rx mg/5 mL (5 mL) oral solution (Hycodan) warfarin 2.5 mg tablet 2.5 mg PO DIRECTED 05/31/24 06/17/24 History warfarin 5 mg tablet 5 mg PO DIRECTED 05/31/24 06/17/24 History warfarin 7.5 mg tablet 7.5 mg PO DIRECTED 05/31/24 06/17/24 History levofloxacin 250 mg tablet 250 mg PO DAILY #30 tabs 06/04/24 06/17/24 Rx famotidine 20 mg tablet 20 mg PO UD 06/17/24 06/17/24 History insulin aspart U-100 100 unit/mL 12 unit subcut UD 06/17/24 06/17/24 History (3 mL) subcutaneous pen (Novolog FlexPen U-100 Insulin aspart) levofloxacin 750 mg tablet 750 mg PO UD 06/17/24 06/17/24 History levothyroxine 175 mcg tablet 175 mcg PO UD 06/17/24 06/17/24 History Allergies Allergy/AdvReac Type Severity Reaction Status Date / Time exenatide [From [place]] AdvReac Intermediate Diarrhea Verified 06/17/24 09:44 Past Med/Surg History Problem List (Updated 06/17/24 @ 16:24 by Berlin Bradshaw MD) Abdominal ascites (Acute) Acute dyspnea (Acute) Decompensated cirrhosis Spontaneous bacterial peritonitis Ascites Bacteremia due to Streptococcus pneumoniae SIRS (systemic inflammatory response syndrome) Sepsis (Acute) Lactic acidemia (Acute) Cirrhosis of liver Superior mesenteric vein thrombosis (Acute) Portal vein thrombosis End stage liver disease (Acute) CKD (chronic kidney disease), stage III Portal hypertension (Chronic) SOB (shortness of breath) Cough (Acute) Enterocolitis Abdominal pain (Acute) Closed rib fracture (Acute) Persistent cough for 3 weeks or longer Right shoulder pain Bronchitis Nausea & vomiting Diarrhea Acute sinusitis Vitamin D deficiency Anticoagulant long-term use Hyperlipidemia (Chronic) Controlled type 2 diabetes mellitus, with long-term current use of insulin (Chronic) Mild renal insufficiency (Chronic) Anxiety and depression (Chronic) Gastritis Bacteremia due to Gram-negative bacteria Hyperbilirubinemia Tremor Hypoglycemia Superior labrum [id number] (SLAP) tear of left shoulder (Chronic) Weight loss Insomnia BERNAL (nonalcoholic steatohepatitis) (Acute) Awaiting liver transplant Hypertension (Chronic) hx Peripheral neuropathy (Chronic) Hypothyroidism (Chronic) Esophageal varices hx banding GERD (gastroesophageal reflux disease) Medical History Decreased range of motion of left shoulder Left arm weakness COVID-19 virus infection Colitis Gram-negative bacteremia History of ascites DM type 2 (diabetes mellitus, type 2) GI bleed Anemia Post traumatic stress disorder Surgical History History of abdominal paracentesis History of surgery of liver S/P debridement History of herniorrhaphy History of ERCP Hx of hand surgery Hx of vasectomy History of esophagogastroduodenoscopy (EGD) History of colonoscopy History of cholecystectomy History of tooth extraction Family History Mother Diabetes Grandmother No problems noted. Grandmother (Maternal) Diabetes Family/Other Heart disease Cancer Hypertension Other No family history of adverse response to anesthesia Denies family history of Ovarian cancer Prostate cancer Myocardial infarction Breast cancer Colorectal cancer Social History Smoking Status: Former smoker Tobacco Type: Cigarettes and Smokeless Tobacco (Dip or Chew) Age Started Using Tobacco: 17; Age Quit Using Tobacco: 31; packs per day: 1.5; Cigarettes Per Day: QUIT 35 YEARs ago; Second Hand Exposure: No; Do You Dip or Chew Tobacco: No; Hx Alcohol Use: No Hx Substance Use: No Preferred Language: Indonesian Communication Ability: Effective Visual Impairment: No Limitations Hearing Ability: Normal Enterer Required: No Beliefs That Will Affect Care: None marital status: Current Living Situation: Spouse Current Living Situation Comment: lives with current occupational status: retired How many Children do You have: 3 Feels Safe at Home: Yes Childhood Exposure to Second-Hand Smoke: Yes Diet: regular caffeine: Yes during the past year weight has: remained stable Dental Care, Regularly: Yes Physical Activity Frequency: 3-4 Times per Week Seatbelt Use: never Sunscreen Use: No Assistive Devices: Cane Review of Systems See HPI for pertinent positives & negatives. Physical Exam Vital Signs Vital Signs - 24 hr 06/17/24 10:55 06/17/24 11:06 06/17/24 11:08 Temperature 36.4 C L Temperature Source Oral Pulse Rate 94 H Pulse Rate [Apical] 84 Pulse Rate from SpO2 Sensor Respiratory Rate 20 20 Respiratory Effort / Characteristics Non-Labored Spontaneous Respiratory Depth Normal Blood Pressure 95/68 L 99/69 L Blood Pressure [Right Arm] 99/69 L Blood Pressure Mean 77 74 Blood Pressure Mean [Right Arm] 79 Pulse Oximetry 95 99 Oxygen Delivery Method Room Air Room Air Sepsis Recent Fever Within 48 Hours No Sepsis New/Unexplained Change in Mental Status No Sepsis Action Taken by Nursing No Action Required 06/17/24 11:21 06/17/24 11:36 06/17/24 12:06 Temperature Temperature Source Pulse Rate 84 85 87 Pulse Rate [Apical] Pulse Rate from SpO2 Sensor 84 87 89 Respiratory Rate 19 19 25 H Respiratory Effort / Characteristics Respiratory Depth Blood Pressure Blood Pressure [Right Arm] Blood Pressure Mean Blood Pressure Mean [Right Arm] Pulse Oximetry 97 94 93 Oxygen Delivery Method Sepsis Recent Fever Within 48 Hours Sepsis New/Unexplained Change in Mental Status Sepsis Action Taken by Nursing 06/17/24 12:11 06/17/24 12:39 06/17/24 13:00 Temperature Temperature Source Pulse Rate 87 84 86 Pulse Rate [Apical] Pulse Rate from SpO2 Sensor Respiratory Rate 19 26 H Respiratory Effort / Characteristics Respiratory Depth Blood Pressure 92/62 L Blood Pressure [Right Arm] Blood Pressure Mean 72 Blood Pressure Mean [Right Arm] Pulse Oximetry Oxygen Delivery Method Sepsis Recent Fever Within 48 Hours Sepsis New/Unexplained Change in Mental Status Sepsis Action Taken by Nursing 06/17/24 14:09 06/17/24 14:36 06/17/24 15:03 Temperature Temperature Source Pulse Rate 81 80 82 Pulse Rate [Apical] Pulse Rate from SpO2 Sensor 82 80 83 Respiratory Rate 21 23 17 Respiratory Effort / Characteristics Respiratory Depth Blood Pressure Blood Pressure [Right Arm] Blood Pressure Mean Blood Pressure Mean [Right Arm] Pulse Oximetry 95 93 93 Oxygen Delivery Method Sepsis Recent Fever Within 48 Hours Sepsis New/Unexplained Change in Mental Status Sepsis Action Taken by Nursing 06/17/24 16:18 Temperature Temperature Source Pulse Rate 82 Pulse Rate [Apical] Pulse Rate from SpO2 Sensor Respiratory Rate Respiratory Effort / Characteristics Respiratory Depth Blood Pressure Blood Pressure [Right Arm] Blood Pressure Mean Blood Pressure Mean [Right Arm] Pulse Oximetry Oxygen Delivery Method Sepsis Recent Fever Within 48 Hours Sepsis New/Unexplained Change in Mental Status Sepsis Action Taken by Nursing See below Constitutional WD/WN, vitals as above Respiratory normal respiratory effort, lungs clear to auscultation Cardiovascular RRR, no murmur, no edema Gastrointestinal (Abdomen) Moderate distention, soft, nontender, normal bowel sounds throughout, no fluid wave noted Course Administered Medications Discontinued Medications Ioversol (Optiray 320 100ml) 94 ml IV ONCE ONE Stop: 06/17/24 13:58 Last Admin: 06/17/24 13:57 Dose: 94 ml Documented By: BONNIE Medical Decision Making Differential Diagnosis Ascites, pulmonary edema, SBO constipation,, SBP Medical Records Attestation: I reviewed the patient's medical records. Home Medications Current Medication List: was personally reviewed by me Laboratory Data Attestation: I reviewed the patient's lab results. 06/17/24 11:10 06/17/24 15:15 Lab Results 06/17/24 06/17/24 06/17/24 Range/Units 11:10 12:42 12:54 WBC 8.72 (4.8-10.8) K/ul RBC 3.48 L (4.70-6.10) M/uL Hgb 11.9 L (14.0-18.0) g/dl POC Hgb (14.0-18.0) g/dl Hct 36.2 L (42.0-52.0) % POC Hct (42-52) % MCV 104.0 H (80.0-100.0) fL MCH 34.2 H (25.0-34.0) pg MCHC 32.9 (32.0-36.0) g/dL RDW Std Deviation 66.9 H (36.4-46.3) fL RDW Coeff of Debby 17.6 H (11.5-14.5) % Plt Count 370 (130-400) K/uL MPV 10.0 (9.4-12.4) fL Immature Gran % (Auto) 0.6 % Neut % (Auto) 75.3 % Lymph % (Auto) 7.3 % [place] % (Auto) 14.6 % Eos % (Auto) 1.4 % Baso % (Auto) 0.8 % Neut # (Auto) 6.57 H (1.40-6.50) K/uL Lymph # (Auto) 0.64 L (1.20-3.40) K/uL [place] # (Auto) 1.27 H (0.11-0.59) K/uL Eos # (Auto) 0.12 (0.00-0.50) K/uL Baso # (Auto) 0.07 (0.00-0.20) K/uL Immature Gran # (Auto) 0.05 (0.01-0.20) K/uL PT Cancelled 30.8 H INR Cancelled 3.1 H POC Sodium (135-144) mmol/L Sodium Cancelled POC Potassium (3.3-5.0) mmol/L Potassium Cancelled POC Chloride (101-112) mmol/L Chloride Cancelled Carbon Dioxide Cancelled POC Total CO2 (24-31) mmol/L Anion Gap Cancelled POC Anion Gap (16-25) mmol/L POC BUN (7-18) mg/dl BUN Cancelled Creatinine Cancelled POC Creatinine (0.6-1.3) mg/dl Est Cr Clr Drug Dosing Cancelled eGFR Cancelled BUN/Creatinine Ratio Cancelled Glucose Cancelled POC Glucose (other) (70-99) mg/dl Lactate 1.4 (0.4-2.0) mmol/L Calcium Cancelled POC Ioniz Calcium Catherine (1.12-1.32) mmol/l Magnesium Cancelled Total Bilirubin Cancelled Direct Bilirubin Cancelled AST Cancelled ALT Cancelled Alkaline Phosphatase Cancelled Troponin I High Sens Cancelled Total Protein Cancelled Albumin Cancelled Procalcitonin 0.10 (0-0.5) ng/ml 06/17/24 06/17/24 Range/Units 13:36 15:15 WBC (4.8-10.8) K/ul RBC (4.70-6.10) M/uL Hgb (14.0-18.0) g/dl POC Hgb 12.2 L (14.0-18.0) g/dl Hct (42.0-52.0) % POC Hct 36 L (42-52) % MCV (80.0-100.0) fL MCH (25.0-34.0) pg MCHC (32.0-36.0) g/dL RDW Std Deviation (36.4-46.3) fL RDW Coeff of Debby (11.5-14.5) % Plt Count (130-400) K/uL MPV (9.4-12.4) fL Immature Gran % (Auto) % Neut % (Auto) % Lymph % (Auto) % [place] % (Auto) % Eos % (Auto) % Baso % (Auto) % Neut # (Auto) (1.40-6.50) K/uL Lymph # (Auto) (1.20-3.40) K/uL [place] # (Auto) (0.11-0.59) K/uL Eos # (Auto) (0.00-0.50) K/uL Baso # (Auto) (0.00-0.20) K/uL Immature Gran # (Auto) (0.01-0.20) K/uL PT INR POC Sodium 137 (135-144) mmol/L Sodium 135 L POC Potassium 3.9 (3.3-5.0) mmol/L Potassium 4.2 POC Chloride 96 L (101-112) mmol/L Chloride 100 Carbon Dioxide 29 POC Total CO2 28 (24-31) mmol/L Anion Gap 6 POC Anion Gap 18.0 (16-25) mmol/L POC BUN 11 (7-18) mg/dl BUN 12 Creatinine 0.75 POC Creatinine 0.9 (0.6-1.3) mg/dl Est Cr Clr Drug Dosing 98.7 eGFR 98.91 BUN/Creatinine Ratio 16.0 Glucose 119 H POC Glucose (other) 142 H (70-99) mg/dl Lactate (0.4-2.0) mmol/L Calcium 8.1 L POC Ioniz Calcium Catherine 1.01 L (1.12-1.32) mmol/l Magnesium 1.5 L Total Bilirubin 1.6 H Direct Bilirubin 0.5 H AST 69 H ALT 25 Alkaline Phosphatase 202 H Troponin I High Sens < 2.3 Total Protein 6.8 Albumin 2.2 L Procalcitonin (0-0.5) ng/ml Imaging Data Radiologist's Impression: Chest X-Ray 06/17/24 12:07 XR chest 1V portable CLINICAL HISTORY: Sepsis COMPARISON STUDY: 05/31/2024 FINDINGS: Single view of the chest demonstrates persistently high left diaphragm with chronic costophrenic angle blunting suggesting probable fibrosis. There is a discoid atelectasis present at the left lung base on the present examination. There is a right diaphragmatic eventration. The right lung is clear. Heart size and pulmonary vascularity are unremarkable. Right lower lobe granuloma once again noted. IMPRESSION: Minor discoid atelectasis left lung base; otherwise stable exam with no acute process identified. ACT 112: Negative or not required by law. Electronically signed by: Magda Owens M.D. 06/17/2024 12:41 PM Abdomen/Pelvis CT 06/17/24 12:[address] WITH IV CONTRAST CT DOSE: 1136.3 mGy.cm HISTORY: ascites TECHNIQUE: Multiaxial CT images of the abdomen and pelvis were performed following the IV administration of 90 cc of Optiray, A dose lowering technique was utilized adhering to the principles of ALARA. COMPARISON STUDY: 05/31/2024 FINDINGS: There is an interval trace left pleural effusion. ABDOMEN: Stable resection of the right hepatic lobe. Stable 2.4 cm round hypodense mass far lateral liver. Stable biliary gas. Stable lobular contour of the liver. No new liver finding seen. Gallbladder is surgically absent. Stable distal common bile duct stent. Pancreas and adrenal glands are unremarkable. Stable splenic calcifications consistent with prior granulomatous disease. Kidneys show no hydronephrosis or calculi. There are scattered atherosclerotic calcifications. No abdominal aortic aneurysm. There is a moderate amount of diffuse ascites, stable. Pelvis: Prostate is mildly enlarged. Urinary bladder is mildly distended. There is mild sigmoid diverticulosis. No acute diverticulitis. There is moderate retained stool, especially at the cecum. There is stable distention of a few upper abdominal small bowel loops measuring up to 6 cm diameter. No colonic distention. No free air or abscess. There are a few stable mildly enlarged periaortic lymph nodes. Osseous structures: No acute osseous findings. IMPRESSION: 1. Stable upper abdominal small bowel distention. 2. Stable moderate ascites. 3. Otherwise as described. ACT 112: Negative or not required by law. The above report was generated using voice recognition software. It may contain grammatical, syntax or spelling errors. Electronically signed by: Perry Tilley M.D. 06/17/2024 2:39 PM ECG Data Attestation: I personally reviewed and interpreted this ECG as follows: Indication: + SOB/dyspnea Rate (beats per minute): 84 Rhythm: + normal sinus ECG Intervals/blocks: + Normal QRS, + Normal TX and + Normal QT-c ECG [place]: + Normal ECG ST segments: + Normal ST segments Change: no significant change (from 05/31/24) Blood Pressure Blood Pressure Findings: Low blood pressure Additional Comments: Blood pressure at patient's baseline for his underlying liver disease MDM Narrative Patient is 68-year-old male with history of liver cirrhosis secondary to BERNAL coming in with shortness of breath and abdominal distention. Recently treated in the hospital for SBP and continues to be on Levaquin outpatient. No abdominal pain, fevers, chills, nausea or vomiting here today. No leukocytosis or signs of infection concerning for persistent SBP. CT of the abdomen and pelvis was ordered without any acute abnormalities noted. Moderate amount of ascites noted on CT. Chest x-ray was reviewed and nonconcerning for fluid overload. No ischemic changes noted on EKG. Symptoms of shortness of breath likely secondary to diaphragmatic restriction from fluid overload. Recommend therapeutic paracentesis and will admit to hospitalist service for further management. Impression & Plan Acute dyspnea, Abdominal ascites Admit Discharge Plan Visit Data Chief Complaint: Referred by Doctor Stated Complaint: ABDOMINAL DISTENSION - REF BY ED Provider: Berlin Bradshaw Discharge Problem: Acute dyspnea, Abdominal ascites Forms Stand Alone Forms: My [facility] Prescriptions Prescriptions: No Action biotin 10 mg tablet 10 mg PO QAM Qty: 30 0RF ferrous sulfate [iron] 325 mg (65 mg iron) tablet 325 mg PO BID Qty: 60 0RF simvastatin 20 mg tablet 20 mg PO QAM Qty: 90 3RF spironolactone 50 mg tablet 50 mg PO QAM Qty: 90 3RF Rx Instructions: TAKE 1 TABLET BY MOUTH DAILY. bupropion HCl 150 mg tablet sustained-release 12 hr 150 mg PO BID Qty: 180 3RF Rx Instructions: TAKE 1 TABLET BY MOUTH TWICE DAILY. metformin 1,000 mg tablet 1,000 mg PO BID Qty: 180 3RF Hold Instructions: Resume on 02/10/24. Please resume after discussing with your PCP whether to continue with metformin given the fact that you have liver cirrhosis Rx Instructions: 1000 mg po bid. last filled 01/12/24 90 day supply furosemide 20 mg tablet 20 mg PO QAM Qty: 90 3RF omeprazole 40 mg capsule,delayed release(DR/EC) 40 mg PO BID Qty: 180 3RF Rx Instructions: TAKE 1 CAPSULE BY MOUTH TWICE DAILY FOR STOMACH ACID. (DME) pen needle, diabetic [TechLITE Pen Needle] 31 gauge x 5/16" needle See Rx Instructions .Route Qty: 100 11RF Rx Instructions: use BID with insulin injections ondansetron 4 mg tablet,disintegrating 4 mg translingual Q6H PRN (Reason: NAUSEA/VOMITING) Qty: 30 4RF Rx Instructions: DISSOLVE 1 TABLET ON THE TONGUE EVERY 6 HOURS NEEDED. propranolol 10 mg tablet 10 mg PO BID Qty: 60 4RF sertraline 50 mg tablet 50 mg PO DAILY Qty: 90 3RF Rx Instructions: will cont on welbutrin lorazepam 0.5 mg tablet 0.5 mg PO DAILY PRN (Reason: anxiety) Qty: 30 1RF albuterol sulfate 90 mcg/actuation HFA aerosol inhaler 2 inh inhalation Q6H PRN (Reason: shortness of breath or wheezing) Qty: 8.5 1RF cyanocobalamin (vitamin B-12) 1,000 mcg capsule 1,000 mcg PO QAM (DME) OneTouch Ultra Blue Test Strip Strip See Rx Instructions .ROUTE .MEDSUPPLY Dose Instruction: As directed Rx Instructions: TEST 3 TIMES A DAY FOR MULTIPLE DAILY INSULIN INJECTIONS (DME) Dexcom G7 Cable Hooker Misc See Rx Instructions .Route Rx Instructions: As directed hydrocodone-homatropine [Hycodan] 5-1.5 mg/5 mL (5 mL) syrup 5 ml PO Q6H PRN (Reason: cough) Qty: 200 0RF cholecalciferol (vitamin D3) [Vitamin D3] 2,000 unit capsule 1,000 unit PO BID calcium carbonate [Calcium 600] 600 mg calcium (1,500 mg) Tablet 600 mg PO BID acetaminophen [Tylenol Extra Strength] 500 mg Tablet 500 mg PO Q6H PRN (Reason: Pain) insulin glargine [Lantus Solostar U-100 Insulin] 100 unit/mL (3 mL) insulin pen 4 unit subcut UD Rx Instructions: 4u subcut qam. No fill history available famotidine 20 mg tablet 20 mg PO UD Rx Instructions: filled 06/06 10 day supply #10 levothyroxine 175 mcg tablet 175 mcg PO UD Rx Instructions: 175mcg po qam. last filled 03/06 90 day supply levofloxacin 750 mg tablet 750 mg PO UD Rx Instructions: 750 mg po daily@1100. filled 06/04 2 day supply #2 insulin aspart U-100 [Novolog FlexPen U-100 Insulin] 100 unit/mL (3 mL) insulin pen 12 unit subcut UD Rx Instructions: 12u subcut daily. No fill history available warfarin 7.5 mg Tablet 7.5 mg PO DIRECTED Rx Instructions: ONLY ON Thursdays-no fill history warfarin 2.5 mg tablet 2.5 mg PO DIRECTED Protocol: Dose Management Condition: Saturday Dose/Route: 5 mg Instruction: 1 x 5 mg tablet Condition: Saturday Dose/Route: 2.5 mg Instruction: 1 x 2.5 mg tablet Condition: Saturday Dose/Route: 5 mg Instruction: 1 x 5 mg tablet Condition: Saturday Dose/Route: 5 mg Instruction: 1 x 5 mg tablet Condition: Dose/Route: 7.5 mg Instruction: 1 x 2.5 mg tablet, 1 x 5 mg tablet Condition: Saturday Dose/Route: 5 mg Instruction: 1 x 5 mg tablet Condition: Saturday Dose/Route: 5 mg Instruction: 1 x 5 mg tablet Protocol Text: Adjustment Start Date: Saturday02/11/24 INR Value: 1.8 INR Date: 02/11/24 Recheck Date: 02/18/24 Rx Instructions: 2.5 MG ON 06/17- last filled 07/2023 90 day supply warfarin 5 mg tablet 5 mg PO DIRECTED Protocol: Dose Management Condition: Saturday Dose/Route: 5 mg Instruction: 1 x 5 mg tablet Condition: Saturday Dose/Route: 2.5 mg Instruction: 1 x 2.5 mg tablet Condition: Saturday Dose/Route: 5 mg Instruction: 1 x 5 mg tablet Condition: Saturday Dose/Route: 5 mg Instruction: 1 x 5 mg tablet Condition: Dose/Route: 7.5 mg Instruction: 1 x 2.5 mg tablet, 1 x 5 mg tablet Condition: Saturday Dose/Route: 5 mg Instruction: 1 x 5 mg tablet Condition: Saturday Dose/Route: 5 mg Instruction: 1 x 5 mg tablet Protocol Text: Adjustment Start Date: Saturday02/11/24 INR Value: 1.8 INR Date: 02/11/24 Recheck Date: 02/18/24 Rx Instructions: SAT, SAT, SAT, SAT, SAT last filled 03/16/24 90 day supply levofloxacin 250 mg tablet 250 mg PO DAILY Qty: 30 0RF Referrals Referrals: Neelam Cooper CRNP [Primary Care Provider] -
[2024-06-17] MEDS: OPTIRAY 320 100ml IV ONE (13:57)
[2024-06-17 14:00] LABS: iSTAT Creatinine 0.9 mg/dl (0.6-1.3); iSTAT Hemoglobin 12.2 g/dl (14.0-18.0); iSTAT Ionized Calcium 1.01 mmol/l (1.12-1.32); iSTAT Potassium 3.9 mmol/L (3.3-5.0)
--- NOTE | 2024-06-17 14:40 | CT Scan Report ---
ABDOMEN AND PELVIS CT WITH IV CONTRAST CT DOSE: 1136.3 mGy.cm HISTORY: ascites TECHNIQUE: Multiaxial CT images of the abdomen and pelvis were performed following the IV administrat ion of 90 cc of Optiray, A dose lowering technique was utilized adhering to the principles of ALARA. COMPARISON STUDY: 05/31/2024 FINDINGS: There is an interval trace left pleural effusion. ABDOMEN: Stable resection of the right hepatic lobe. Stable 2.4 cm round hypodense mass far lateral l iver. Stable biliary gas. Stable lobular contour of the liver. No new liver finding seen. Gallbladder is surgically absent. Stable distal common bile duct stent. Pancreas and adrenal glands are unremark able. Stable splenic calcifications consistent with prior granulomatous disease. Kidneys show no hydr onephrosis or calculi. There are scattered atherosclerotic calcifications. No abdominal aortic aneury sm. There is a moderate amount of diffuse ascites, stable. Pelvis: Prostate is mildly enlarged. Urinary bladder is mildly distended. There is mild sigmoid diver ticulosis. No acute diverticulitis. There is moderate retained stool, especially at the cecum. There is stable distention of a few upper abdominal small bowel loops measuring up to 6 cm diameter. No col onic distention. No free air or abscess. There are a few stable mildly enlarged periaortic lymph node s. Osseous structures: No acute osseous findings. IMPRESSION: 1. Stable upper abdominal small bowel distention. 2. Stable moderate ascites. 3. Otherwise as described. ACT 112: Negative or not required by law. The above report was generated using voice recognition software. It may contain grammatical, syntax o r spelling errors. Electronically signed by: Perry Tilley M.D. 06/17/2024 2:39 PM
[2024-06-17 15:43] LABS: Albumin Level 2.2 gm/dl (3.4-5.0); Anion Gap 6 (3-11); Bilirubin Direct 0.5 mg/dl (0-0.2); Bilirubin,Total 1.6 mg/dl (0.2-1.0); Calcium 8.1 mg/dl (8.6-10.3); Carbon Dioxide 29 mmol/L (21-32); Chloride 100 mmol/L (98-107); Magnesium 1.5 mg/dl (1.7-2.4); Potassium 4.2 mmol/L (3.5-5.1); Sodium 135 mmol/L (136-145)
[2024-06-17 15:48] LABS: Alanine Aminotransferase 25 U/L (7-52); Alkaline Phosphatase 202 U/L (34-104); Aspartate Aminotransferase 69 U/L (13-39); Blood Urea Nitrogen 12 mg/dl (6-23); Creatinine Clr Calc Pharmacy 98.7 ml/min; Glucose 119 mg/dl (70-99(Fasting)); Total Protein 6.8 gm/dl (6.0-8.3)
--- NOTE | 2024-06-17 15:54 | History & Physical Report ---
Date of Service June 17, 2024 Assessment & Plan (1) Decompensated cirrhosis: (2) Ascites: (3) Spontaneous bacterial peritonitis: (4) Bacteremia due to Streptococcus pneumoniae: (5) Superior mesenteric vein thrombosis: (6) Portal vein thrombosis: (7) Portal hypertension: (8) Diarrhea: (9) Controlled type 2 diabetes mellitus, with long-term current use of insulin: (10) Awaiting liver transplant: (11) BERNAL (nonalcoholic steatohepatitis): (12) Hypothyroidism: (13) Esophageal varices: (14) GERD (gastroesophageal reflux disease): (15) Hypomagnesemia: Plan 68yo male with known BERNAL cirrhosis, followed by [facility] and currently on liver transplant list, portal vein thrombosis & superior mesenteric vein thrombosis on chronic coumadin, hypothyroidism, CKD stage 3, GERD, CBD stent status, T2DM, esophageal varices, and recent hospitalization for strep pneumo bacteremia & SBP (05/31/24 to 06/06/24) -- presents with worsening abdominal bloating along with mild weight gain. Has otherwise felt well since hospital d/c on 06/06 and denies fevers/chills/appetite loss. #abdominal bloating - * 2nd to ascites from BERNAL cirrhosis * recent SBP in late May treated with IV/PO antibiotics * cannot rule out gaseous distension contributing to bloating as he has multiple loops of mildly dilated bowel on today's CT * he is also having diarrhea which could be making the bloating worse * he requests paracentesis - will obtain such tomorrow, 06/18, as long as IR is comfortable with doing such on coumadin and given the current INR * send fluid for cell counts/culture * drain 3-4 liters as tolerated * his ascites is moderate both clinically & radiographically (radiologist states the amount on CT looks similar to the amount on CT in May 2024) * given that he has been quite compliant with his lasix 20mg daily & spironolactone 50mg and still remains volume overloaded would be reasonable to increase his lasix to 40mg/day and spironolactone to 100mg/day * consider doing this close to discharge or at time of discharge * also reinforce need for salt restricted diet * during my admission assessment he reported he hadn't had any of his diuretics today thus ordered lasix 20mg + aldactone 50mg while he was in the ER #decompensated BERNAL cirrhosis - * consider increase in diuretics as noted above * will ask [facility] to see in consult for additional recs and also so that he can establish care with them -- needs a local GI provider to follow his volume status, etc. * does not have f/u with [facility] for several more months * MELD score still remains low with 3-month mortality <10% (INR is not helpful given that he is on coumadin) * BPs are low today - will hold inderal but hopefully resume such at discharge #recent strep pneumo bacteremia - * likely source - SBP * has completed his recent course of antibiotics for such * repeat blood cultures obtained today but doubt sepsis/recurrent bacteremia #recent SBP - * clinically resolved * finished his course of PO levaquin * he is now on low-dose levaquin for SBP prophylaxis * planning paracentesis tomorrow by IR if there is a pocket of fluid to safely tap; will resend cell counts & culture #hypomagnesemia - * replace with mag sulfate IV * repeat mag level am #h/o esophageal varices & GERD - * cont PPI twice daily #h/o PVT & superior mesenteric artery thrombosis - * on chronic coumadin * INR goal 2-3, but ideally he is closer to 2 due to high risk of bleeding * INR today is 3.1 -- hold today's coumadin, repeat INR am tomorrow #hypothyroidism - * recent TSH in 05/2024 wnl * cont synthroid #T2DM - * recent Hba1c 6.1% * he is on basal-bolus insulin at home * cont lantus 4 units daily * cont loose novolog SSI * hold metformin - consider dose reduction at discharge of metformin or his lantus given his tight control #DVT proph - * INR 3.1 on chronic coumadin * hold today's coumadin * repeat INR am Place on observation status for now History of Present Illness Chief Complaint: abdominal bloating Primary Care Provider: HATTIE Fleming 68yo male with known BERNAL cirrhosis, followed by [facility] and currently on liver transplant list, portal vein thrombosis & superior mesenteric vein thrombosis on chronic coumadin, hypothyroidism, CKD stage 3, GERD, CBD stent status, T2DM, esophageal varices, and recent hospitalization for strep pneumo bacteremia & SBP (05/31/24 to 06/06/24) -- presents with worsening abdominal bloating along with mild weight gain. Has otherwise felt well since hospital d/c on 06/06 and denies fevers/chills/appetite loss. Denies peripheral edema. Tried taking double lasix (40mg rather than 20mg) for 3 days without any effect on his abdominal bloating/ascites. The ascites & bloating cause dyspnea particularly when he lays down or bends over. Does admit to multiple loose stools each day in addition to the above complaints. Denies any melena, BRBPR, tenesmus, or abdominal pain. He finished his course of levaquin for the recent bacteremia/SBP and he is now on levaquin 250mg daily for SBP prophylaxis. He mentions that he had c.diff at some point in the remote past. Last visit with [facility] was about 7-8 months. He does not follow with a local GI specialist. He is not opposed to having a local GI provider. Patient reports an unchanged chronic cough. Mostly dry with just occasional yellow sputum. Use of flonase to treat post-nasal drip & use of albuterol does not relieve his cough. Allergies Allergy/AdvReac Type Severity Reaction Status Date / Time exenatide [From Byetta] AdvReac Intermediate Diarrhea Verified 06/17/24 09:44 Home Medications Medication Instructions Recorded Confirmed Type biotin 10 mg tablet 10 mg PO QAM #30 tabs 08/11/18 06/17/24 Rx ferrous sulfate 325 mg (65 mg 325 mg PO BID #60 tabs 08/11/18 06/17/24 Rx iron) tablet (iron) cyanocobalamin (vitamin B-12) 1,000 mcg PO QAM 11/25/18 06/17/24 History 1,000 mcg capsule calcium carbonate (Calcium 600) 600 mg PO BID 12/25/18 06/17/24 History cholecalciferol (vitamin D3) 50 1,000 unit PO BID 12/25/18 06/17/24 History mcg (2,000 unit) capsule (Vitamin D3) acetaminophen 500 mg tablet 500 mg PO Q6H PRN Pain 07/03/20 06/17/24 History (Tylenol Extra Strength) blood sugar diagnostic (OneTouch 02/10/21 06/17/24 History Ultra Blue Test Strip) blood-glucose,portfolio consultant,cont 01/03/23 06/17/24 History (Dexcom G7 [employer] Crewmember) simvastatin 20 mg tablet 20 mg PO QAM #90 tabs 08/22/23 06/17/24 Rx bupropion HCl 150 mg tablet,12 hr 150 mg PO BID #180 tabs 09/02/23 06/17/24 Rx sustained-release metformin 1,000 mg tablet 1,000 mg PO BID #180 tabs 09/02/23 06/17/24 Rx spironolactone 50 mg tablet 50 mg PO QAM #90 tabs 09/02/23 06/17/24 Rx furosemide 20 mg tablet 20 mg PO QAM #90 tabs 09/05/23 06/17/24 Rx omeprazole 40 mg capsule,delayed 40 mg PO BID #180 caps 09/09/23 06/17/24 Rx release pen needle, diabetic 31 gauge x #100 ea 10/09/23 06/17/24 Rx 5/16" (TechLITE Pen Needle) ondansetron 4 mg disintegrating 4 mg translingual Q6H PRN 01/13/24 06/17/24 Rx tablet NAUSEA/VOMITING #30 tabs insulin glargine 100 unit/mL (3 4 unit subcut UD 01/30/24 06/17/24 History mL) subcutaneous pen (Lantus Solostar U-100 Insulin) propranolol 10 mg tablet 10 mg PO BID #60 tabs 03/26/24 06/17/24 Rx sertraline 50 mg tablet 50 mg PO DAILY #90 tabs 04/13/24 06/17/24 Rx lorazepam 0.5 mg tablet 0.5 mg PO DAILY PRN anxiety #30 05/08/24 06/17/24 Rx tabs albuterol sulfate 90 mcg/actuation 2 inh inhalation Q6H PRN shortness 05/11/24 06/17/24 Rx aerosol inhaler of breath or wheezing #8.5 grams hydrocodone-homatropine 5 mg-1.5 5 ml PO Q6H PRN cough #200 mL 05/21/24 06/17/24 Rx mg/5 mL (5 mL) oral solution (Hycodan) warfarin 2.5 mg tablet 2.5 mg PO DIRECTED 05/31/24 06/17/24 History warfarin 5 mg tablet 5 mg PO DIRECTED 05/31/24 06/17/24 History warfarin 7.5 mg tablet 7.5 mg PO DIRECTED 05/31/24 06/17/24 History levofloxacin 250 mg tablet 250 mg PO DAILY #30 tabs 06/04/24 06/17/24 Rx famotidine 20 mg tablet 20 mg PO UD 06/17/24 06/17/24 History insulin aspart U-100 100 unit/mL 12 unit subcut UD 06/17/24 06/17/24 History (3 mL) subcutaneous pen (Novolog FlexPen U-100 Insulin aspart) levofloxacin 750 mg tablet 750 mg PO UD 06/17/24 06/17/24 History levothyroxine 175 mcg tablet 175 mcg PO UD 06/17/24 06/17/24 History Past Med/Surg History Problem List (Updated 06/17/24 @ 22:13 by Fidencio Corral MD) Hypomagnesemia Chronic cough Abdominal ascites (Acute) Acute dyspnea (Acute) Decompensated cirrhosis Ascites SIRS (systemic inflammatory response syndrome) Sepsis (Acute) Lactic acidemia (Acute) End stage liver disease (Acute) CKD (chronic kidney disease), stage III Portal hypertension (Chronic) SOB (shortness of breath) Cough (Acute) Enterocolitis Abdominal pain (Acute) Closed rib fracture (Acute) Persistent cough for 3 weeks or longer Right shoulder pain Bronchitis Nausea & vomiting Diarrhea Acute sinusitis Vitamin D deficiency Anticoagulant long-term use Hyperlipidemia (Chronic) Controlled type 2 diabetes mellitus, with long-term current use of insulin (Chronic) Mild renal insufficiency (Chronic) Anxiety and depression (Chronic) Gastritis Bacteremia due to Gram-negative bacteria Hyperbilirubinemia Tremor Hypoglycemia Superior labrum [id number] (SLAP) tear of left shoulder (Chronic) Weight loss Insomnia Awaiting liver transplant Hypertension (Chronic) hx Peripheral neuropathy (Chronic) Hypothyroidism (Chronic) Esophageal varices hx banding GERD (gastroesophageal reflux disease) Medical History (Updated 06/17/24 @ 22:13 by Fidencio Corral MD) History of biliary stent insertion Patient on waiting list for liver transplant Spontaneous bacterial peritonitis 05/2024 - presumed 2nd strep pneumo Bacteremia due to Streptococcus pneumoniae 05/2024 Superior mesenteric vein thrombosis Portal vein thrombosis BERNAL (nonalcoholic steatohepatitis) Cirrhosis of liver Decreased range of motion of left shoulder Left arm weakness COVID-19 virus infection 2021--mild symptoms "just a headache", no symptoms now Colitis Gram-negative bacteremia History of ascites DM type 2 (diabetes mellitus, type 2) IDDM GI bleed hx Anemia Post traumatic stress disorder Surgical History History of abdominal paracentesis multiple (last 2 years ago) History of surgery of liver Hepatic lobectomy (benign tumor) S/P debridement ABDOMINAL WOUND 2018 History of herniorrhaphy WITH MESH-2018 History of ERCP last 08/2021 @ [facility] Hx of hand surgery RT HAND/ARM SURGERY (METAL PLATE D/T FX) Hx of vasectomy History of esophagogastroduodenoscopy (EGD) History of colonoscopy History of cholecystectomy History of tooth extraction Family History (Updated 06/17/24 @ 22:01 by Fidencio Corral MD) Mother Diabetes Cancer Grandmother No problems noted. Grandmother (Maternal) Diabetes Family/Other Heart disease Hypertension Father Lung cancer Other No family history of adverse response to anesthesia Denies family history of Ovarian cancer Prostate cancer Myocardial infarction Breast cancer Colorectal cancer Social History (Updated 06/17/24 @ 22:00 by Fidencio Corral MD) Smoking Status: Former smoker Tobacco Type: Cigarettes and Smokeless Tobacco (Dip or Chew) Age Started Using Tobacco: 17; Age Quit Using Tobacco: 31; packs per day: 1.5; Smoking End Date: 38 yrs ago; Second Hand Exposure: No; Do You Dip or Chew Tobacco: No; Hx Alcohol Use: No Hx Substance Use: No Preferred Language: Chinese Communication Ability: Effective Visual Impairment: No Limitations Hearing Ability: Normal Iron Miner Required: No Beliefs That Will Affect Care: None marital status: Current Living Situation: Spouse Current Living Situation Comment: lives with current occupational status: retired 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 [employer] How many Children do You have: 3 Other Information That Helps Us Care for You: No Feels Safe at Home: Yes Safety Concerns: Feels Safe At This Time Childhood Exposure to Second-Hand Smoke: Yes Diet: regular caffeine: Yes during the past year weight has: remained stable Dental Care, Regularly: Yes Physical Activity Frequency: 3-4 Times per Week Seatbelt Use: never Sunscreen Use: No Assistive Devices: Denture - Upper and Denture - Lower Assistive Devices Comment: Reports having walking stick, cane & walker at home but doesn't use Review of Systems Review of Systems: gen - no fevers or chills; good appetite; 1-2 pounds of weight gain since hospital d/c on 06/06/24 eyes - no visual changes HENT - no URI symptoms CV - no chest pain, no peripheral edema pulm - mild dyspnea with twisting/bending and dyspnea on exertion GI - bloating/distension but NO pain and no vomiting; ongoing loose stools, about 3/day; no blood per rectum, no melena - no dysuria musculo - denies any specific joint pains skin - no jaundice, no rash psych - no mood changes neuro - denies any headaches Physical Exam Physical Exam: gen - NAD, pleasant, comfortable, no dyspnea eyes - PERRL, no icterus of sclera HENT - MMM, no lesions neck - no JVD, no lymph nodes heart - RRR, s1 s2, no murmur lungs - CTA b/l, no rales or wheeze abd - mild-moderate distension, ascites present, scar present central abdomen, BS+, NT, no obvious HSM, no peritoneal signs ext - no peripheral edema, pulses b/l feet 2+ neuro - no asterixis; strength 5/5 x 4 exts psych - a/o x 3 skin - no rash, no jaundice Results & Data Results & Data Vital Signs (Past 12 Hours) Vital Signs Temp Pulse Pulse Resp BP BP Pulse Ox 06/17/24 15:03 82 17 93 06/17/24 14:36 80 23 93 06/17/24 14:09 81 21 95 06/17/24 13:00 86 26 H 92/62 L 06/17/24 12:39 84 19 06/17/24 12:11 87 06/17/24 12:06 87 25 H 93 06/17/24 11:36 85 19 94 06/17/24 11:21 84 19 97 06/17/24 11:08 84 20 99/69 L 99 06/17/24 11:06 99/69 L 06/17/24 10:55 36.4 C L 94 H 20 95/68 L 95 O2 Del Method 06/17/24 15:03 06/17/24 14:36 06/17/24 14:09 06/17/24 13:00 06/17/24 12:39 06/17/24 12:11 06/17/24 12:06 06/17/24 11:36 06/17/24 11:21 06/17/24 11:08 Room Air 06/17/24 11:06 06/17/24 10:55 Room Air Laboratory Results Laboratory Results - last 24 hr 06/17/24 06/17/24 06/17/24 11:10 12:42 12:54 WBC 8.72 RBC 3.48 L Hgb 11.9 L POC Hgb Hct 36.2 L POC Hct MCV 104.0 H MCH 34.2 H MCHC 32.9 RDW Std Deviation 66.9 H RDW Coeff of Debby 17.6 H Plt Count 370 MPV 10.0 Immature Gran % (Auto) 0.6 Neut % (Auto) 75.3 Lymph % (Auto) 7.3 [place] % (Auto) 14.6 Eos % (Auto) 1.4 Baso % (Auto) 0.8 Neut # (Auto) 6.57 H Lymph # (Auto) 0.64 L [place] # (Auto) 1.27 H Eos # (Auto) 0.12 Baso # (Auto) 0.07 Immature Gran # (Auto) 0.05 PT Cancelled 30.8 H INR Cancelled 3.1 H POC Sodium Sodium Cancelled POC Potassium Potassium Cancelled POC Chloride Chloride Cancelled Carbon Dioxide Cancelled POC Total CO2 Anion Gap Cancelled POC Anion Gap POC BUN BUN Cancelled Creatinine Cancelled POC Creatinine Est Cr Clr Drug Dosing Cancelled eGFR Cancelled BUN/Creatinine Ratio Cancelled Glucose Cancelled POC Glucose POC Glucose (other) Lactate 1.4 Calcium Cancelled POC Ioniz Calcium Catherine Magnesium Cancelled Total Bilirubin Cancelled Direct Bilirubin Cancelled AST Cancelled ALT Cancelled Alkaline Phosphatase Cancelled Troponin I High Sens Cancelled Total Protein Cancelled Albumin Cancelled Procalcitonin 0.10 Urine Color Urine Appearance Urine pH Ur Specific [place] Urine Protein Urine Glucose (UA) Urine Ketones Urine Blood Urine Nitrite Urine Bilirubin Urine Urobilinogen Ur Leukocyte Esterase 06/17/24 06/17/24 06/17/24 13:36 15:15 18:17 WBC RBC Hgb POC Hgb 12.2 L Hct POC Hct 36 L MCV MCH MCHC RDW Std Deviation RDW Coeff of Debby Plt Count MPV Immature Gran % (Auto) Neut % (Auto) Lymph % (Auto) [place] % (Auto) Eos % (Auto) Baso % (Auto) Neut # (Auto) Lymph # (Auto) [place] # (Auto) Eos # (Auto) Baso # (Auto) Immature Gran # (Auto) PT INR POC Sodium 137 Sodium 135 L POC Potassium 3.9 Potassium 4.2 POC Chloride 96 L Chloride 100 Carbon Dioxide 29 POC Total CO2 28 Anion Gap 6 POC Anion Gap 18.0 POC BUN 11 BUN 12 Creatinine 0.75 POC Creatinine 0.9 Est Cr Clr Drug Dosing 98.7 eGFR 98.91 BUN/Creatinine Ratio 16.0 Glucose 119 H POC Glucose 139 H POC Glucose (other) 142 H Lactate Calcium 8.1 L POC Ioniz Calcium Catherine 1.01 L Magnesium 1.5 L Total Bilirubin 1.6 H Direct Bilirubin 0.5 H AST 69 H ALT 25 Alkaline Phosphatase 202 H Troponin I High Sens < 2.3 Total Protein 6.8 Albumin 2.2 L Procalcitonin Urine Color Urine Appearance Urine pH Ur Specific [place] Urine Protein Urine Glucose (UA) Urine Ketones Urine Blood Urine Nitrite Urine Bilirubin Urine Urobilinogen Ur Leukocyte Esterase 06/17/24 06/17/24 20:28 Unknown WBC RBC Hgb POC Hgb Hct POC Hct MCV MCH MCHC RDW Std Deviation RDW Coeff of Debby Plt Count MPV Immature Gran % (Auto) Neut % (Auto) Lymph % (Auto) [place] % (Auto) Eos % (Auto) Baso % (Auto) Neut # (Auto) Lymph # (Auto) [place] # (Auto) Eos # (Auto) Baso # (Auto) Immature Gran # (Auto) PT INR POC Sodium Sodium POC Potassium Potassium POC Chloride Chloride Carbon Dioxide POC Total CO2 Anion Gap POC Anion Gap POC BUN BUN Creatinine POC Creatinine Est Cr Clr Drug Dosing eGFR BUN/Creatinine Ratio Glucose POC Glucose 136 H POC Glucose (other) Lactate Calcium POC Ioniz Calcium Catherine Magnesium Total Bilirubin Direct Bilirubin AST ALT Alkaline Phosphatase Troponin I High Sens Total Protein Albumin Procalcitonin Urine Color Yellow Urine Appearance Clear Urine pH 7.0 Ur Specific [place] 1.019 Urine Protein Negative Urine Glucose (UA) Negative Urine Ketones Negative Urine Blood Negative Urine Nitrite Negative Urine Bilirubin Negative Urine Urobilinogen Negative Ur Leukocyte Esterase Negative Diagnostic Findings Chest X-Ray 06/17/24 12:07 XR chest 1V portable CLINICAL HISTORY: Sepsis COMPARISON STUDY: 05/31/2024 FINDINGS: Single view of the chest demonstrates persistently high left diaphragm with chronic costophrenic angle blunting suggesting probable fibrosis. There is a discoid atelectasis present at the left lung base on the present examination. There is a right diaphragmatic eventration. The right lung is clear. Heart size and pulmonary vascularity are unremarkable. Right lower lobe granuloma once again noted. IMPRESSION: Minor discoid atelectasis left lung base; otherwise stable exam with no acute process identified. ACT 112: Negative or not required by law. Electronically signed by: Magda Owens M.D. 06/17/2024 12:41 PM Abdomen/Pelvis CT 06/17/24 12:[address] WITH IV CONTRAST CT DOSE: 1136.3 mGy.cm HISTORY: ascites TECHNIQUE: Multiaxial CT images of the abdomen and pelvis were performed following the IV administration of 90 cc of Optiray, A dose lowering technique was utilized adhering to the principles of ALARA. COMPARISON STUDY: 05/31/2024 FINDINGS: There is an interval trace left pleural effusion. ABDOMEN: Stable resection of the right hepatic lobe. Stable 2.4 cm round hypodense mass far lateral liver. Stable biliary gas. Stable lobular contour of the liver. No new liver finding seen. Gallbladder is surgically absent. Stable distal common bile duct stent. Pancreas and adrenal glands are unremarkable. Stable splenic calcifications consistent with prior granulomatous disease. Kidneys show no hydronephrosis or calculi. There are scattered atherosclerotic calcifications. No abdominal aortic aneurysm. There is a moderate amount of diffuse ascites, stable. Pelvis: Prostate is mildly enlarged. Urinary bladder is mildly distended. There is mild sigmoid diverticulosis. No acute diverticulitis. There is moderate retained stool, especially at the cecum. There is stable distention of a few upper abdominal small bowel loops measuring up to 6 cm diameter. No colonic distention. No free air or abscess. There are a few stable mildly enlarged melonie aortic lymph nodes. Osseous structures: No acute osseous findings. IMPRESSION: 1. Stable upper abdominal small bowel distention. 2. Stable moderate ascites. 3. Otherwise as described. ACT 112: Negative or not required by law. The above report was generated using voice recognition software. It may contain grammatical, syntax or spelling errors. Electronically signed by: Perry Tilley M.D. 06/17/2024 2:39 PM EKG - my reading - NSR, low voltage, ST flattening anterolateral leads and inferior leads EKG today is UNCHANGED from prior EKG in May 2024 Echo 05/2024 with preserved EF & intact valvular function Code Status & VTE Plan Code Status full code PG Care Time/CCT Total # of Minutes Spent Total Time Spent with Patient: Total time spent is greater than 50% in coordination of care (as documented) at patient's floor/unit and/or counseling patient: Coding Level of Care Code 47412 INT INP/OBS CARE MIN Diagnoses Decompensated cirrhosis K72.90; K74.60 Ascites R18.8 Spontaneous bacterial peritonitis K65.2 Bacteremia due to Streptococcus pneumoniae R78.81; B95.3 Superior mesenteric vein thrombosis K55.069 Portal vein thrombosis I81 Portal hypertension K76.6 Diarrhea, unspecified type R19.7 Diarrhea type: unspecified type Controlled type 2 diabetes mellitus without complication, with long-term current use of insulin E11.9; Z79.4 Diabetes mellitus complication status: without complication Awaiting liver transplant Z76.82 BERNAL (nonalcoholic steatohepatitis) K75.81 Hypothyroidism, unspecified type E03.9 Hypothyroidism type: unspecified Secondary esophageal varices without bleeding I85.10 Esophageal varices bleeding: without bleeding Esophageal varices type: secondary Gastroesophageal reflux disease without esophagitis K21.9 Esophagitis presence: without esophagitis Hypomagnesemia E83.42 (8) Diarrhea Diarrhea type: unspecified type Qualified Code(s): R19.7 - Diarrhea, unspecified (9) Controlled type 2 diabetes mellitus, with long-term current use of insulin Diabetes mellitus complication status: without complication Qualified Code(s): E11.9 - Type 2 diabetes mellitus without complications; Z79.4 - long term care administrator (current) use of insulin (12) Hypothyroidism Hypothyroidism type: unspecified Qualified Code(s): E03.9 - Hypothyroidism, unspecified (13) Esophageal varices Esophageal varices bleeding: without bleeding Esophageal varices type: secondary Qualified Code(s): I85.10 - Secondary esophageal varices without bleeding (14) GERD (gastroesophageal reflux disease) Esophagitis presence: without esophagitis Qualified Code(s): K21.9 - Gastro- esophageal reflux disease without esophagitis
[2024-06-17 15:57] LABS: Troponin I High Sensitivity < 2.3 pg/ml (0-20)
[2024-06-17] MEDS: levoFLOXacin 250 MG TABLET PO ONE (16:23)
[2024-06-17] MEDS: MAGNESIUM SULFATE / D5W 1 GM/100 ML BAG IV SCH (16:26)
[2024-06-17] MEDS: FUROSEMIDE 20 MG TAB PO ONE (17:09)
[2024-06-17] MEDS: SPIRONOLACTONE 25 MG TAB PO ONE (17:10)
[2024-06-17] MEDS ORDERED: [UNRECOGNIZED DRUG - OTHER] SCH (18:09)
[2024-06-17] MEDS ORDERED: ONDANSETRON INJ 2 MG/ML 2 ML VIAL IV PRN (18:09)
[2024-06-17] MEDS ORDERED: ALBUTEROL HFA 8 GM INHALER INH PRN (18:09)
[2024-06-17] MEDS ORDERED: ACETAMINOPHEN 500 MG TAB PO PRN (18:09)
[2024-06-17] MEDS ORDERED: HYDROcodone/HOMATROPINE SYRUP 5MG/1.5MG 5ML UDP PO PRN (18:22)
[2024-06-17] MEDS: INSULIN ASPART PER UNIT CHARGE SC SCH (18:47)
[2024-06-17] MEDS: PANTOprazole 40 MG TAB PO SCH (21:19)
[2024-06-17] MEDS: buPROPion SR 150 MG TABCR PO SCH (21:19)
[2024-06-17] MEDS: CALCIUM CARBONATE 500 MG CHEWABLE TAB PO SCH (21:19)
[2024-06-17] MEDS: CHOLECALCIFEROL 25 MCG (1000 UNITS) TAB PO SCH (21:20)
[2024-06-17 21:50] LABS: Appearance Urine Clear (Clear); Bilirubin Urine Negative (Negative); Blood Urine Negative (Negative); Color Urine Yellow; Glucose Urine UA Negative (Negative); Ketones Urine Negative (Negative); Leukocyte Esterase Urine Negative (Negative); Nitrite Urine Negative (Negative); Protein Urine Negative (Negative); Specific Gravity Urine 1.019 (1.000-1.030); Urobilinogen Urine Negative (Negative)
[2024-06-17] MEDS: LORazepam 0.5 MG TAB PO PRN (23:12)
--- NOTE | 2024-06-18 05:33 | Electrocardiogram Report ---
Test Reason : Blood Pressure : */* mmHG Vent. Rate : 84 BPM Atrial Rate : 84 BPM P-R Int : 152 ms QRS Dur : 74 ms QT Int : 398 ms P-R-T Axes : 37 -18 -12 degrees QTcB Int : 470 ms Normal sinus rhythm Low voltage QRS Nonspecific T wave abnormality When compared with ECG of 31-May-2024 16:01, No significant change Confirmed by Jarad Mack ([id number]) on 06/18/2024 5:32:54 AM Referred By: Neelam Cooper Confirmed By: Jarad Mack
[2024-06-18] MEDS: LEVOTHYROXINE SODIUM 175 MCG TABLET PO SCH (06:00)
[2024-06-18 07:45] LABS: Hematocrit (blood only) 31.9 % (42.0-52.0); Hemoglobin 10.7 g/dl (14.0-18.0); Mean Corpuscular Hemoglobin 34.2 pg (25.0-34.0); Mean Corpuscular Hgb Conc 33.5 g/dL (32.0-36.0); Mean Corpuscular Volume 101.9 fL (80.0-100.0); Mean Platelet Volume 9.5 fL (9.4-12.4); Platelet Count 290 K/uL (130-400); RDW Coefficient of Variation 17.4 % (11.5-14.5); RDW Standard Deviation 65.1 fL (36.4-46.3); Red Blood Count 3.13 M/uL (4.70-6.10); White Blood Count 6.42 K/ul (4.8-10.8)
[2024-06-18 08:20] LABS: Albumin Globulin Ratio 0.5 (0.9-2); Creatinine Clr Calc Pharmacy 89.2 ml/min; Globulin 4.4 gm/dl (2.5-4.0); Magnesium 1.8 mg/dl (1.7-2.4); Total Protein 6.4 gm/dl (6.0-8.3)
[2024-06-18 08:21] LABS: INR 2.2 (0.9-1.1); Prothrombin Time 22.5 Seconds (9.0-12.0)
[2024-06-18] MEDS: SERTRALINE HCL 50 MG TABLET PO SCH (08:32)
[2024-06-18] MEDS: CYANOCOBALAMIN (B-12) 500 MCG TABLET PO SCH (08:32)
[2024-06-18] MEDS: FERROUS SULFATE 325 MG TAB PO SCH (08:32)
[2024-06-18] MEDS: levoFLOXacin 250 MG TABLET PO SCH (08:33)
[2024-06-18] MEDS: FUROSEMIDE 20 MG TAB PO SCH (08:36)
[2024-06-18] MEDS: SPIRONOLACTONE 25 MG TAB PO SCH (08:36)
[2024-06-18] MEDS: LANTUS PER UNIT CHARGE SQ SCH (08:45)
--- NOTE | 2024-06-18 11:23 | Gastrointestinal Consultation ---
Date of Consultation June 18, 2024 Assessment & Plan (1) Decompensated cirrhosis: - would recommend paracentesis. - he was not getting good control of his ascites on current doses of lasix/aldactone. BUN and creatinine unremarkable. would recommend lasix 40mg daily and aldactone 100mg daily and see how he does with these doses. Would need to monitor renal function on higher doses in light of history of CKD. - he has seen [facility] in the past and I would recommend he follow there upon discharge. May be beneficial to set him up with hepatology locally through their group. would also recommend he discuss outpatient colonoscopy/egd with them as well. - continue to follow with [facility] liver transplant team. Supervising Physician Co-Signing Physician Notes I saw and examined this patient with our nurse practitioner and agree with her assessment and plan. Increasing his Lasix and Aldactone as described by our physician clinic assistant. Will need to monitor renal function. Would consider a repeat large-volume paracentesis in this patient. However will need to be off his anticoagulation prior to that. If he is doing better with the increased diuretics that can be arranged as an outpatient if needed. History of Present Illness Reason for Consultation: decompensated cirrhosis. Requesting Physician: Fidencio Corral MD Attending Physician: Armando Viveros DO History of Present Illness 68 year old male with known BERNAL cirrhosis, followed by [facility] and currently on liver transplant list, portal vein thrombosis & superior mesenteric vein thrombosis on chronic coumadin, hypothyroidism, CKD stage 3, GERD, CBD stent status, DM II, esophageal varices, and recent hospitalization for strep pneumo bacteremia & SBP (05/31/24 to 06/06/24) presents with worsening abdominal bloating along with mild weight gain. He had otherwise felt well since hospital discharge on 06/06 and denies fevers/chills/appetite loss. He tells me that on his last admission, that was his first paracentesis in over 10 years. He had been doing fairly well on lasix 20mg daily and aldactone 50mg daily. When he noticed the increase in fluid, he did try increasing the lasix to 40mg on his own but this did not make any difference. he also admits to a history of CKD. He has not been seen recently by local GI, though had seen [facility] in the past. rest of GI ros are unremarkable. CT 06/17/24 Stable upper abdominal small bowel distention. Stable moderate ascites. Allergies Allergy/AdvReac Type Severity Reaction Status Date / Time exenatide [From Byetta] AdvReac Intermediate Diarrhea Verified 06/17/24 09:44 Home Medications Medication Instructions Recorded Confirmed Type biotin 10 mg tablet 10 mg PO QAM #30 tabs 08/11/18 06/17/24 Rx ferrous sulfate 325 mg (65 mg 325 mg PO BID #60 tabs 08/11/18 06/17/24 Rx iron) tablet (iron) cyanocobalamin (vitamin B-12) 1,000 mcg PO QAM 11/25/18 06/17/24 History 1,000 mcg capsule calcium carbonate (Calcium 600) 600 mg PO BID 12/25/18 06/17/24 History cholecalciferol (vitamin D3) 50 1,000 unit PO BID 12/25/18 06/17/24 History mcg (2,000 unit) capsule (Vitamin D3) acetaminophen 500 mg tablet 500 mg PO Q6H PRN Pain 07/03/20 06/17/24 History (Tylenol Extra Strength) blood sugar diagnostic (OneTouch 02/10/21 06/17/24 History Ultra Blue Test Strip) 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-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,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,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 01/03/23 06/17/24 History (Dexcom G7 Ditch Cleaner) simvastatin 20 mg tablet 20 mg PO QAM #90 tabs 08/22/23 06/17/24 Rx bupropion HCl 150 mg tablet,12 hr 150 mg PO BID #180 tabs 09/02/23 06/17/24 Rx sustained-release metformin 1,000 mg tablet 1,000 mg PO BID #180 tabs 09/02/23 06/17/24 Rx spironolactone 50 mg tablet 50 mg PO QAM #90 tabs 09/02/23 06/17/24 Rx furosemide 20 mg tablet 20 mg PO QAM #90 tabs 09/05/23 06/17/24 Rx omeprazole 40 mg capsule,delayed 40 mg PO BID #180 caps 09/09/23 06/17/24 Rx release pen needle, diabetic 31 gauge x #100 ea 10/09/23 06/17/24 Rx 5/16" (TechLITE Pen Needle) ondansetron 4 mg disintegrating 4 mg translingual Q6H PRN 01/13/24 06/17/24 Rx tablet NAUSEA/VOMITING #30 tabs insulin glargine 100 unit/mL (3 4 unit subcut UD 01/30/24 06/17/24 History mL) subcutaneous pen (Lantus Solostar U-100 Insulin) propranolol 10 mg tablet 10 mg PO BID #60 tabs 03/26/24 06/17/24 Rx sertraline 50 mg tablet 50 mg PO DAILY #90 tabs 04/13/24 06/17/24 Rx lorazepam 0.5 mg tablet 0.5 mg PO DAILY PRN anxiety #30 05/08/24 06/17/24 Rx tabs albuterol sulfate 90 mcg/actuation 2 inh inhalation Q6H PRN shortness 05/11/24 06/17/24 Rx aerosol inhaler of breath or wheezing #8.5 grams hydrocodone-homatropine 5 mg-1.5 5 ml PO Q6H PRN cough #200 mL 05/21/24 06/17/24 Rx mg/5 mL (5 mL) oral solution (Hycodan) warfarin 2.5 mg tablet 2.5 mg PO DIRECTED 05/31/24 06/17/24 History warfarin 5 mg tablet 5 mg PO DIRECTED 05/31/24 06/17/24 History warfarin 7.5 mg tablet 7.5 mg PO DIRECTED 05/31/24 06/17/24 History levofloxacin 250 mg tablet 250 mg PO DAILY #30 tabs 06/04/24 06/17/24 Rx famotidine 20 mg tablet 20 mg PO UD 06/17/24 06/17/24 History insulin aspart U-100 100 unit/mL 12 unit subcut UD 06/17/24 06/17/24 History (3 mL) subcutaneous pen (Novolog FlexPen U-100 Insulin aspart) levofloxacin 750 mg tablet 750 mg PO UD 06/17/24 06/17/24 History levothyroxine 175 mcg tablet 175 mcg PO UD 06/17/24 06/17/24 History Patient History Medical History (Updated 06/17/24 @ 22:13 by Fidencio Corral MD) History of biliary stent insertion Patient on waiting list for liver transplant Spontaneous bacterial peritonitis 05/2024 - presumed 2nd strep pneumo Bacteremia due to Streptococcus pneumoniae 05/2024 Superior mesenteric vein thrombosis Portal vein thrombosis BERNAL (nonalcoholic steatohepatitis) Cirrhosis of liver Decreased range of motion of left shoulder Left arm weakness COVID-19 virus infection 2021--mild symptoms "just a headache", no symptoms now Colitis Gram-negative bacteremia History of ascites DM type 2 (diabetes mellitus, type 2) IDDM GI bleed hx Anemia Post traumatic stress disorder Surgical History History of abdominal paracentesis multiple (last 2 years ago) History of surgery of liver Hepatic lobectomy (benign tumor) S/P debridement ABDOMINAL WOUND 2017 History of herniorrhaphy WITH MESH-2018 History of ERCP last 08/2021 @ [facility] Hx of hand surgery RT HAND/ARM SURGERY (METAL PLATE D/T FX) Hx of vasectomy History of esophagogastroduodenoscopy (EGD) History of colonoscopy History of cholecystectomy History of tooth extraction Family History (Updated 06/17/24 @ 22:01 by Fidencio Corral MD) Mother Diabetes Cancer Grandmother No problems noted. Grandmother (Maternal) Diabetes Family/Other Heart disease Hypertension Father Lung cancer Other No family history of adverse response to anesthesia Denies family history of Ovarian cancer Prostate cancer Myocardial infarction Breast cancer Colorectal cancer Social History (Updated 06/17/24 @ 22:00 by Fidencio Corral MD) Smoking Status: Former smoker Tobacco Type: Cigarettes and Smokeless Tobacco (Dip or Chew) Age Started Using Tobacco: 17; Age Quit Using Tobacco: 31; packs per day: 1.5; Smoking End Date: 38 yrs ago; Second Hand Exposure: No; Do You Dip or Chew Tobacco: No; Hx Alcohol Use: No Hx Substance Use: No Preferred Language: [place] Communication Ability: Effective Visual Impairment: No Limitations Hearing Ability: Normal 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 Beliefs That Will Affect Care: None marital status: Current Living Situation: Spouse Current Living Situation Comment: lives with current occupational status: retired 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 [employer] How many Children do You have: 3 Other Information That Helps Us Care for You: No Feels Safe at Home: Yes Safety Concerns: Feels Safe At This Time Childhood Exposure to Second-Hand Smoke: Yes Diet: regular caffeine: Yes during the past year weight has: remained stable Dental Care, Regularly: Yes Physical Activity Frequency: 3-4 Times per Week Seatbelt Use: never Sunscreen Use: No Assistive Devices: Cane Assistive Devices Comment: Reports having walking stick, cane & walker at home but doesn't use Review of Systems Review of Systems: All systems reviewed & are unremarkable except as noted in HPI & below Physical Exam Constitutional: WD/WN, vitals as above Respiratory: normal respiratory effort, lungs clear to auscultation Cardiovascular: Rate/Rhythm: regular rate and regular rhythm Gastrointestinal (Abdomen): distended with moderate ascites. distended. nontender. normal bowel sounds. Psychiatric: Orientation: alert and oriented x 3 Affect: euthymic affect Results & Data Vital Signs (Past 12 Hours) Vital Signs Temp Pulse Resp BP BP Pulse Ox O2 Del Method 06/18/24 08:45 Room Air 06/18/24 08:33 73 107/73 06/18/24 07:28 98.1 F 80 18 90/59 L 96 Room Air 06/18/24 03:35 98.2 F 86 16 99/60 L 92 Room Air Laboratory Results Laboratory Results - last 48 hr 06/17/24 06/17/24 06/17/24 11:10 12:42 12:54 WBC 8.72 RBC 3.48 L Hgb 11.9 L POC Hgb Hct 36.2 L POC Hct MCV 104.0 H MCH 34.2 H MCHC 32.9 RDW Std Deviation 66.9 H RDW Coeff of Debby 17.6 H Plt Count 370 MPV 10.0 Immature Gran % (Auto) 0.6 Neut % (Auto) 75.3 Lymph % (Auto) 7.3 Briscoe % (Auto) 14.6 Eos % (Auto) 1.4 Baso % (Auto) 0.8 Neut # (Auto) 6.57 H Lymph # (Auto) 0.64 L Briscoe # (Auto) 1.27 H Eos # (Auto) 0.12 Baso # (Auto) 0.07 Immature Gran # (Auto) 0.05 PT Cancelled 30.8 H INR Cancelled 3.1 H POC Sodium Sodium Cancelled POC Potassium Potassium Cancelled POC Chloride Chloride Cancelled Carbon Dioxide Cancelled POC Total CO2 Anion Gap Cancelled POC Anion Gap POC BUN BUN Cancelled Creatinine Cancelled POC Creatinine Est Cr Clr Drug Dosing Cancelled eGFR Cancelled BUN/Creatinine Ratio Cancelled Glucose Cancelled POC Glucose POC Glucose (other) Lactate 1.4 Calcium Cancelled POC Ioniz Calcium Catherine Magnesium Cancelled Total Bilirubin Cancelled Direct Bilirubin Cancelled AST Cancelled ALT Cancelled Alkaline Phosphatase Cancelled Troponin I High Sens Cancelled Total Protein Cancelled Albumin Cancelled Globulin Albumin/Globulin Ratio Procalcitonin 0.10 Urine Color Urine Appearance Urine pH Ur Specific Superior Urine Protein Urine Glucose (UA) Urine Ketones Urine Blood Urine Nitrite Urine Bilirubin Urine Urobilinogen Ur Leukocyte Esterase Stl C. diff Tox B Gene 06/17/24 06/17/24 06/17/24 13:36 15:15 18:17 WBC RBC Hgb POC Hgb 12.2 L Hct POC Hct 36 L MCV MCH MCHC RDW Std Deviation RDW Coeff of Debby Plt Count MPV Immature Gran % (Auto) Neut % (Auto) Lymph % (Auto) Briscoe % (Auto) Eos % (Auto) Baso % (Auto) Neut # (Auto) Lymph # (Auto) Briscoe # (Auto) Eos # (Auto) Baso # (Auto) Immature Gran # (Auto) PT INR POC Sodium 137 Sodium 135 L POC Potassium 3.9 Potassium 4.2 POC Chloride 96 L Chloride 100 Carbon Dioxide 29 POC Total CO2 28 Anion Gap 6 POC Anion Gap 18.0 POC BUN 11 BUN 12 Creatinine 0.75 POC Creatinine 0.9 Est Cr Clr Drug Dosing 98.7 eGFR 98.91 BUN/Creatinine Ratio 16.0 Glucose 119 H POC Glucose 139 H POC Glucose (other) 142 H Lactate Calcium 8.1 L POC Ioniz Calcium Catherine 1.01 L Magnesium 1.5 L Total Bilirubin 1.6 H Direct Bilirubin 0.5 H AST 69 H ALT 25 Alkaline Phosphatase 202 H Troponin I High Sens < 2.3 Total Protein 6.8 Albumin 2.2 L Globulin Albumin/Globulin Ratio Procalcitonin Urine Color Urine Appearance Urine pH Ur Specific Superior Urine Protein Urine Glucose (UA) Urine Ketones Urine Blood Urine Nitrite Urine Bilirubin Urine Urobilinogen Ur Leukocyte Esterase Stl C. diff Tox B Gene 06/17/24 06/17/24 06/18/24 20:28 Unknown 07:14 WBC 6.42 RBC 3.13 L Hgb 10.7 L POC Hgb Hct 31.9 L POC Hct MCV 101.9 H MCH 34.2 H MCHC 33.5 RDW Std Deviation 65.1 H RDW Coeff of Debby 17.4 H Plt Count 290 MPV 9.5 Immature Gran % (Auto) Neut % (Auto) Lymph % (Auto) Briscoe % (Auto) Eos % (Auto) Baso % (Auto) Neut # (Auto) Lymph # (Auto) Briscoe # (Auto) Eos # (Auto) Baso # (Auto) Immature Gran # (Auto) PT 22.5 H INR 2.2 H POC Sodium Sodium 135 L POC Potassium Potassium 4.0 POC Chloride Chloride 101 Carbon Dioxide 31 POC Total CO2 Anion Gap 3 POC Anion Gap POC BUN BUN 10 Creatinine 0.83 POC Creatinine Est Cr Clr Drug Dosing 89.2 eGFR 95.93 BUN/Creatinine Ratio 12.0 Glucose 77 POC Glucose 136 H POC Glucose (other) Lactate Calcium 8.0 L POC Ioniz Calcium Catherine Magnesium 1.8 Total Bilirubin 2.0 H Direct Bilirubin AST 44 H ALT 19 Alkaline Phosphatase 184 H Troponin I High Sens Total Protein 6.4 Albumin 2.0 L Globulin 4.4 H Albumin/Globulin Ratio 0.5 L Procalcitonin Urine Color Yellow Urine Appearance Clear Urine pH 7.0 Ur Specific Superior 1.019 Urine Protein Negative Urine Glucose (UA) Negative Urine Ketones Negative Urine Blood Negative Urine Nitrite Negative Urine Bilirubin Negative Urine Urobilinogen Negative Ur Leukocyte Esterase Negative Stl C. diff Tox B Gene 06/18/24 06/18/24 06/18/24 07:48 11:59 Unknown WBC RBC Hgb POC Hgb Hct POC Hct MCV MCH MCHC RDW Std Deviation RDW Coeff of Debby Plt Count MPV Immature Gran % (Auto) Neut % (Auto) Lymph % (Auto) Briscoe % (Auto) Eos % (Auto) Baso % (Auto) Neut # (Auto) Lymph # (Auto) Briscoe # (Auto) Eos # (Auto) Baso # (Auto) Immature Gran # (Auto) PT INR POC Sodium Sodium POC Potassium Potassium POC Chloride Chloride Carbon Dioxide POC Total CO2 Anion Gap POC Anion Gap POC BUN BUN Creatinine POC Creatinine Est Cr Clr Drug Dosing eGFR BUN/Creatinine Ratio Glucose POC Glucose 86 166 H POC Glucose (other) Lactate Calcium POC Ioniz Calcium Catherine Magnesium Total Bilirubin Direct Bilirubin AST ALT Alkaline Phosphatase Troponin I High Sens Total Protein Albumin Globulin Albumin/Globulin Ratio Procalcitonin Urine Color Urine Appearance Urine pH Ur Specific Superior Urine Protein Urine Glucose (UA) Urine Ketones Urine Blood Urine Nitrite Urine Bilirubin Urine Urobilinogen Ur Leukocyte Esterase Stl C. diff Tox B Gene Negative Cdiff Gene Coding Level of Care Code 43251 INT INP/OBS CARE MIN Diagnoses Decompensated cirrhosis K72.90; K74.60
--- NOTE | 2024-06-18 12:50 | Hospitalist Progress Note ---
Date of Service June 18, 2024 Assessment & Plan (1) Decompensated cirrhosis: (2) Ascites: (3) Spontaneous bacterial peritonitis: (4) Bacteremia due to Streptococcus pneumoniae: (5) Portal vein thrombosis: (6) Portal hypertension: (7) Diarrhea: (8) Controlled type 2 diabetes mellitus, with long-term current use of insulin: (9) Awaiting liver transplant: (10) Hypothyroidism: (11) Esophageal varices: (12) GERD (gastroesophageal reflux disease): (13) Hypomagnesemia: Plan 68yo male with known BERNAL cirrhosis, followed by [facility] and currently on liver transplant list, portal vein thrombosis & superior mesenteric vein thrombosis on chronic coumadin, hypothyroidism, CKD stage 3, GERD, CBD stent status, T2DM, esophageal varices, and recent hospitalization for strep pneumo bacteremia & SBP (05/31/24 to 06/06/24) -- presents with worsening abdominal bloating along with mild weight gain. Has otherwise felt well since hospital d/c on 06/06 and denies fevers/chills/appetite loss. #abdominal bloating - * 2nd to ascites from BERNAL cirrhosis * recent SBP in late May treated with IV/PO antibiotics * cannot rule out gaseous distension contributing to bloating as he has multiple loops of mildly dilated bowel on today's CT * he is also having diarrhea which could be making the bloating worse * he requests paracentesis - will obtain such tomorrow, 06/18, as long as IR is comfortable with doing such on coumadin and given the current INR * send fluid for cell counts/culture * drain 3-4 liters as tolerated * his ascites is moderate both clinically & radiographically (radiologist states the amount on CT looks similar to the amount on CT in May 2024) * Consider increasing Spironolactone and Lasix upon d/c if patient remains volume overloaded * Likely level of overflow constipation combined with ascites contributing to bloating * Will reassess patient after paracentesis and regimen of GoLytely #decompensated BERNAL cirrhosis - * consider increase in diuretics as noted above * will ask [facility] to see in consult for additional recs and also so that he can establish care with them -- needs a local GI provider to follow his volume status, etc. * does not have f/u with [facility] for several more months * MELD score still remains low with 3-month mortality <10% (INR is not helpful given that he is on coumadin) * BPs are low today - will hold inderal but hopefully resume such at discharge #recent strep pneumo bacteremia - * likely source - SBP * has completed his recent course of antibiotics for such * repeat blood cultures obtained today but doubt sepsis/recurrent bacteremia #recent SBP - * clinically resolved * finished his course of PO levaquin * he is now on low-dose levaquin for SBP prophylaxis * planning paracentesis tomorrow by IR if there is a pocket of fluid to safely tap; will resend cell counts & culture #hypomagnesemia - * replace with mag sulfate IV * repeat mag level am #h/o esophageal varices & GERD - * cont PPI twice daily #h/o PVT & superior mesenteric artery thrombosis - * on chronic coumadin * INR goal 2-3, but ideally he is closer to 2 due to high risk of bleeding * INR today is 3.1 -- hold today's coumadin, repeat INR am tomorrow #hypothyroidism - * recent TSH in 05/2024 wnl * cont synthroid #T2DM - * recent Hba1c 6.1% * he is on basal-bolus insulin at home * cont lantus 4 units daily * cont loose novolog SSI * hold metformin - consider dose reduction at discharge of metformin or his lantus given his tight control #DVT proph - * INR 3.1 on chronic coumadin * hold today's coumadin * repeat INR am Place on observation status for now Admission and Anticipated Discharge Date Admission Date: June 17, 2024 Supervising Physician Co-Signing Physician Notes I personally examined the patient and verified all trivedi points of history and exam, discussed case, and agree with decision making with Dr Yost feeling more bloated - sent back to ER diarrhea - 2-3x/day, soft/chunky. was ~3-5 soft when on more miralax, not large volume/watery vitals noted nad heent nc at mmm breathing unlabored no accessory muscles good effort skin no rashes no pallor or icterus. CT reviewed, reviewed with pt in the room as well abdominal bloating -?ascites able to be drained - looking at current vs prior CT while there is definitely fluid, await input from radiology on paracentesis -constipation - at least a good deal of his bloating and his diarrhea appear to be constipation with overflow -> re-discussed with pt. discussed options - for now given large amount of stool in ascending colon he opts for bowel prep. discussed ongoing outpt management - while often simplest to titrate miralax, can also consider miralax + senna or other options otherwise as above Subjective Aaron Pryor is feeling well today. Patient reports continued abdominal bloating and mild tenderness and denies chest pain, palpitations, SOB, headaches, fevers, and rigors/chills. The team showed patient his abdominal CT scan and relayed that it is likely a combination of ascites and constipation nia t is related to his abdominal symptoms. The plan for patient is discussed, and he is amenable to stool softeners and a potential IR paracentesis. Physical Exam Physical Exam: General: patient resting comfortably, NAD, non-toxic in appearance, answers questions appropriately. Skin: warm, dry, intact HEENT: NC/AT, anicteric sclera, conjunctiva without injection, moist mucus membranes. Heart: +S1/S2, regular, no m/r/g Lungs: equal air entry bilaterally, no rales/rhonchi/wheezes Abd: +BS, soft, diffuse abdominal distention and tenderness not worsened by palpation Ext: warm, no clubbing/cyanosis or edema, Anurag's neg. Neuro: nonfocal, speech intact, no facial droop, moving all extremities. Results & Data Results & Data Vital Signs (Past 12 Hours) Vital Signs Temp Pulse Resp BP BP Pulse Ox O2 Del Method 06/18/24 11:38 36.7 C 94 H 20 93/64 L 95 Room Air 06/18/24 08:45 Room Air 06/18/24 08:33 73 107/73 06/18/24 07:28 36.7 C 80 18 90/59 L 96 Room Air 06/18/24 03:35 36.8 C 86 16 99/60 L 92 Room Air Resident Activity Tracking Resident Involvement: Resident Care Provided Care Provided: Adult Hospital Medicine (7) Diarrhea Diarrhea type: unspecified type Qualified Code(s): R19.7 - Diarrhea, unspecified (8) Controlled type 2 diabetes mellitus, with long-term current use of insulin Diabetes mellitus complication status: without complication Qualified Code(s): E11.9 - Type 2 diabetes mellitus without complications; Z79.4 - MCC (current) use of insulin (10) Hypothyroidism Hypothyroidism type: unspecified Qualified Code(s): E03.9 - Hypothyroidism, unspecified (11) Esophageal varices Esophageal varices bleeding: without bleeding Esophageal varices type: secondary Qualified Code(s): I85.10 - Secondary esophageal varices without bleeding (12) GERD (gastroesophageal reflux disease) Esophagitis presence: without esophagitis Qualified Code(s): K21.9 - Gastro- esophageal reflux disease without esophagitis
--- NOTE | 2024-06-18 13:27 | Billing Data ---
Date of Service June 18, 2024 Coding Level of Care Code 28130 SUB INP/OBS CARE MIN
[2024-06-18] MEDS: LAVAGE SOLUTION 4000ML PO SCH (15:14)
[2024-06-19 03:34] VITALS: RESP 18
[2024-06-19 07:52] LABS: Basophils # (auto) 0.05 K/uL (0.00-0.20); Basophils % (auto) 0.7 %; Eosinophils # (auto) 0.18 K/uL (0.00-0.50); Eosinophils % (auto) 2.5 %; Hematocrit (blood only) 34.5 % (42.0-52.0); Hemoglobin 11.8 g/dl (14.0-18.0); Immature Granulocytes # (auto) 0.03 K/uL (0.01-0.20); Immature Granulocytes % (auto) 0.4 %; Lymphocytes # (auto) 0.77 K/uL (1.20-3.40); Lymphocytes % (auto) 10.8 %; Mean Corpuscular Hemoglobin 34.7 pg (25.0-34.0); Mean Corpuscular Hgb Conc 34.2 g/dL (32.0-36.0); Mean Corpuscular Volume 101.5 fL (80.0-100.0); Mean Platelet Volume 9.4 fL (9.4-12.4); Monocytes # (auto) 1.12 K/uL (0.11-0.59); Monocytes % (auto) 15.8 %; Neutrophils # (auto) 4.95 K/uL (1.40-6.50); Neutrophils % (auto) 69.8 %; Platelet Count 313 K/uL (130-400); RDW Coefficient of Variation 17.2 % (11.5-14.5); RDW Standard Deviation 64.6 fL (36.4-46.3)
[2024-06-19 08:14] LABS: Albumin Globulin Ratio 0.5 (0.9-2); Albumin Level 2.3 gm/dl (3.4-5.0); Bilirubin,Total 2.6 mg/dl (0.2-1.0); Calcium 8.4 mg/dl (8.6-10.3); Creatinine Clr Calc Pharmacy 89.2 ml/min; Total Protein 7.3 gm/dl (6.0-8.3)
[2024-06-19] MEDS ORDERED: COUGH DROP (SUGAR FREE) LOZ 24 LOZ/1 BOX BUCCAL PRN (08:33)
[2024-06-19] MEDS: COUGH DROP (SUGAR FREE) LOZ 24 LOZ/1 BOX BUCCAL ONE (08:36)
[2024-06-19 10:27] LABS: INR 1.6 (0.9-1.1); Prothrombin Time 16.6 Seconds (9.0-12.0)
[2024-06-19 11:43] VITALS: TEMP 97.7; O2SAT 96
--- NOTE | 2024-06-19 13:00 | Gastroenterology Progress Note ---
Date of Service June 19, 2024 Assessment & Plan (1) Decompensated cirrhosis: Plan: - he was not getting good control of his ascites on current doses of lasix/aldactone. BUN and creatinine unremarkable. would recommend lasix 40mg daily and aldactone 100mg daily and see how he does with these doses. Would need to monitor renal function on higher doses in light of history of CKD. - he has seen [facility] in the past and I would recommend he follow there upo n discharge. May be beneficial to set him up with hepatology locally through their group. would also recommend he discuss outpatient colonoscopy/egd with them as well. - continue to follow with [facility] liver transplant team. Admission and Anticipated Discharge Date Admission Date: June 17, 2024 Supervising Physician Co-Signing Physician Notes I saw and examined this patient with our nurse practitioner and agree with her assessment and plan. Symptomatically improved after large-volume paracentesis. No signs of hepatic decompensation. Continue present diuretic therapy. He will follow-up with outpatient hepatology. Subjective He had paracentesis and does feel better. rest of GI ros are unremarkable. Physical Exam Gastrointestinal (Abdomen): normal bowel sounds, soft, nontender, no hepatosplenomegaly Results & Data Results & Data Vital Signs (Past 12 Hours) Vital Signs Temp Pulse Pulse Resp BP BP Pulse Ox 06/19/24 11:39 97.7 F 84 18 99/61 L 96 06/19/24 07:44 98.2 F 86 18 95/61 L 94 06/19/24 05:43 91 H 06/19/24 03:33 98.4 F 95 H 18 98/64 L 96 O2 Del Method 06/19/24 11:39 Room Air 06/19/24 07:44 Room Air 06/19/24 05:43 06/19/24 03:33 Room Air Coding Level of Care Code 60561 SUB INP/OBS CARE 04/04MIN Diagnoses Decompensated cirrhosis K72.90; K74.60
[2024-06-19 13:36] LABS: Appearance Peritoneal Fluid Slightly Hazy; Color Peritoneal Fluid Yellow; RBC Peritoneal Fluid Auto < 2000 /uL; WBC Peritoneal Fluid Auto 57 /ul (0-300)
--- NOTE | 2024-06-19 13:59 | Ultrasound Report ---
ULTRASOUND GUIDED PARACENTESIS CLINICAL HISTORY: abd bloating with dyspnea COMPARISON STUDY: 06/02/2024 PROCEDURE: The risks, benefits, and alternatives to the procedure were discussed with the patient inc luding the risk of bleeding, infection and injury to adjacent structures. The patient agreed to the procedure and informed written consent was obtained. Following real-time ultrasound localization, the skin was prepped and draped. Following local anesthesia with Xylocaine, the sheath paracentesis need le was inserted and approximately 3 liters of straw-colored fluid was removed by vacuum suction. The patient tolerated the procedure well and no immediate complications were evident. IMPRESSION: Ultrasound-guided paracentesis with removal of 3 liters of ascites. ACT 112: Negative or not required by law. Electronically signed by: Perry Tilley M.D. 06/19/2024 1:58 PM
[2024-06-19 14:06] LABS: Eosinophils, Fluid 4 %; Lymphocytes, Fluid 51 %; Mono,Macrophage,Mesothelial 25 %; Neutrophils, Fluid 20 %
--- NOTE | 2024-06-19 14:28 | Discharge Summary ---
Date of Service June 19, 2024 Admission HPI Per Admitting Provider 68yo male with known BERNAL cirrhosis, followed by [facility] and currently on liver transplant list, portal vein thrombosis & superior mesenteric vein thrombosis on chronic coumadin, hypothyroidism, CKD stage 3, GERD, CBD stent status, T2DM, esophageal varices, and recent hospitalization for strep pneumo bacteremia & SBP (05/31/24 to 06/06/24) -- presents with worsening abdominal bloating along with mild weight gain. Has otherwise felt well since hospital d/c on 06/06 and denies fevers/chills/appetite loss. Denies peripheral edema. Tried taking double lasix (40mg rather than 20mg) for 3 days without any effect on his abdominal bloating/ascites. The ascites & bloating cause dyspnea particularly when he lays down or bends over. Does admit to multiple loose stools each day in addition to the above comp laints. Denies any melena, BRBPR, tenesmus, or abdominal pain. He finished his course of levaquin for the recent bacteremia/SBP and he is now on levaquin 250mg daily for SBP prophylaxis. He mentions that he had c.diff at some point in the remote past. Last visit with [facility] was about 7-8 months. He does not follow with a local GI specialist. He is not opposed to having a local GI provider. Patient reports an unchanged chronic cough. Mostly dry with just occasional yellow sputum. Use of flonase to treat post-nasal drip & use of albuterol does not relieve his cough. Admission Exam Per Admitting Provider gen - NAD, pleasant, comfortable, no dyspnea eyes - PERRL, no icterus of sclera HENT - MMM, no lesions neck - no JVD, no lymph nodes heart - RRR, s1 s2, no murmur lungs - CTA b/l, no rales or wheeze abd - mild-moderate distension, ascites present, scar present central abdomen, BS+, NT, no obvious HSM, no peritoneal signs ext - no peripheral edema, pulses b/l feet 2+ neuro - no asterixis; strength 5/5 x 4 exts psych - a/o x 3 skin - no rash, no jaundice Principal Diagnosis Decompensated cirrhosis/constipation Discharge Exam General: patient resting comfortably, NAD, non-toxic in appearance, answers questions appropriately. Skin: warm, dry, intact HEENT: NC/AT, anicteric sclera, conjunctiva without injection, moist mucus membranes. Heart: +S1/S2, regular, no m/r/g Lungs: equal air entry bilaterally, no rales/rhonchi/wheezes Abd: +BS, soft, diffuse abdominal distention and tenderness not worsened by palpation Ext: warm, no clubbing/cyanosis or edema, Anurag's neg. Neuro: nonfocal, speech intact, no facial droop, moving all extremities. Discharge Data Allergies Allergy/AdvReac Type Severity Reaction Status Date / Time exenatide [From [place]] AdvReac Intermediate Diarrhea Verified 06/17/24 09:44 Consultations 06/17/24 15:45 ED Decision to Admit Stat 06/17/24 18:09 Consult Gastroenterology Routine Ordered Studies 06/17/24 12:26 CT abd pelvis IV con only Stat 06/19/24 IR paracentesis abd w/img US Routine Hospital Course (1) Decompensated cirrhosis: (2) Ascites: (3) Spontaneous bacterial peritonitis: (4) Bacteremia due to Streptococcus pneumoniae: (5) Portal vein thrombosis: (6) Portal hypertension: (7) Diarrhea: (8) Controlled type 2 diabetes mellitus, with long-term current use of insulin: (9) Awaiting liver transplant: (10) Hypothyroidism: (11) Esophageal varices: (12) GERD (gastroesophageal reflux disease): (13) Hypomagnesemia: Plan 68yo male with known BERNAL cirrhosis, followed by [facility] and currently on liver transplant list, portal vein thrombosis & superior mesenteric vein thrombosis on chronic coumadin, hypothyroidism, CKD stage 3, GERD, CBD stent status, T2DM, esophageal varices, and recent hospitalization for strep pneumo bacteremia & SBP (05/31/24 to 06/06/24) -- presents with worsening abdominal bloating along with mild weight gain. Has otherwise felt well since hospital d/c on 06/06 and denies fevers/chills/appetite loss. #abdominal bloating - * 2nd to ascites from BERNAL cirrhosis * recent SBP in late May treated with IV/PO antibiotics * cannot rule out gaseous distension contributing to bloating as he has multiple loops of mildly dilated bowel on today's CT * he is also having diarrhea which could be making the bloating worse * he requests paracentesis - will obtain such tomorrow, 06/18, as long as IR is comfortable with doing such on coumadin and given the current INR * send fluid for cell counts/culture * drain 3-4 liters as tolerated * his ascites is moderate both clinically & radiographically (radiologist states the amount on CT looks similar to the amount on CT in May 2024) * Consider increasing Spironolactone and Lasix upon d/c if patient remains volume overloaded * Likely level of overflow constipation combined with ascites contributing to bloating * Patient with clear liquid stool after GoLytely regimen, with improvements in abdominal bloating/tenderness * Patient feels very well after paracentesis -removal of 3L of fluid #decompensated BERNAL cirrhosis - * consider increase in diuretics as noted above * will ask [facility] to see in consult for additional recs and also so that he can establish care with them -- needs a local GI provider to follow his volume status, etc. * MELD score still remains low with 3-month mortality <10% (INR is not helpful given that he is on coumadin) * BPs are low today - will hold inderal but hopefully resume such at discharge * EGD scheduled for July, patient will schedule appointment with [facility] shortly after this procedure, it has been 9 months since his last f/u and he typically f/u every 6 months #recent strep pneumo bacteremia - * likely source - SBP * has completed his recent course of antibiotics for such * repeat blood cultures obtained today but doubt sepsis/recurrent bacteremia #recent SBP - * clinically resolved * finished his course of PO levaquin * he is now on low-dose levaquin for SBP prophylaxis * planning paracentesis tomorrow by IR if there is a pocket of fluid to safely tap; will resend cell counts & culture #hypomagnesemia - * replace with mag sulfate IV * repeat mag level am #h/o esophageal varices & GERD - * cont PPI twice daily #h/o PVT & superior mesenteric artery thrombosis - * on chronic coumadin * INR goal 2-3, but ideally he is closer to 2 due to high risk of bleeding * INR today is 3.1 -- hold today's coumadin, repeat INR am tomorrow #hypothyroidism - * recent TSH in 05/2024 wnl * cont synthroid #T2DM - * recent Hba1c 6.1% * he is on basal-bolus insulin at home * cont lantus 4 units daily * cont loose novolog SSI * hold metformin - consider dose reduction at discharge of metformin or his lantus given his tight control #DVT proph - * INR 3.1 on chronic coumadin * hold today's coumadin * Most recent INR 1.6 Place on observation status for now Total Time Total Time Spent Total Time Spent (In Minutes): See attending attestation Discharge Plan Discharge Items Patient Disposition: Home - Self-Care Reason For Visit: DECOMPENSATED CIRRHOSIS, ASCITES Activity: Per Instructions section Non-emergency contact: Primary Care Provider and Director Of Corporate Responsibility Call non-emergency contact if: your symptoms worsen and your pain is not controlled Follow-up/Referrals: Neelam Cooper CRNP [Primary Care Provider] - 06/26/24 10:30 am Diet: Regular Addtl Attending Provider Instructions: You were admitted to the hospital for abdominal bloating and tenderness. While in the hospital you were found to have moderate ascites and stool burden on abdominal CT scan and this was comparable to previous CT scans from your visit. While admitted you were put on a bowel regimen of GoLytely to help clear out your bowel of retained hardened stool. Now that your stools are clear and liquid this obstruction has likely cleared. You also mentioned that before your paracentesis was completed your abdominal pain and bloating had improved after a moderate to large bowel movement. After your paracentesis your bloating had significantly improved showing that you likely had multiple sources contributing to your abdominal bloating - chronic ascites build up from your BERNAL cirrhisosis, and chronic constipation. For the chronic constipation, a bowel regimen twice daily of Miralax 17 g will be useful to begin. It may sound odd to continue a bowel regimen when having liquid stools, but it likely that you will deal with chronic constipation with your extensive GI history. You may stop the stool softener once you are able to have 2 soft formed bowel movements. Otherwise continue with the Miralax twice d aily until this is the case. Drinking plenty of water will also help you have regular soft bowel movements. The other contributing factor to your abdominal bloating is ascites which is a chronic sequelae of your extensive GI history, especially your BERNAL cirrhosis. An order for regular diagnostic imaging of your abdomen will be ordered so that you may get paracentesis when your abdomen becomes more full of fluid. We also discussed keeping your diuretics the same after this visit, although we did consider increasing the Lasix 20mg and Spironolactone 50mg to Lasix 40mg and Spironolactone 100mg we decided against this. While this may have limited benefit in reducing your ascites, it is not as clear cut as removing fluid from the lungs or legs because of the differences in vasculature in the area. Thus, although the diuretics can have some effect on this abdominal fluid, doubling these medications may provide more harm than benefit especially as your pressures have been soft, the concerns for dehydration, and the concerns for orthostatic hypotension while taking the diuretics along with medications such as Propranolol, can lead to dizziness, lightheadedness and a fall. Finally, it is very important for you to reach out and schedule an appointment with [facility]. You have stated that it has been almost 9 months since your last visit and you are waiting until your EGD in July before scheduling your follow-up appointment. You do have regular 6 month visits with [facility] and you are overdue by a few months. It is important that you follow up shortly after this EGD. Please also discuss the efficacy of increasing your diuretics with GI providers at [facility] as they have a better idea of your GI history and medication management. A discharge summary will be sent to your primary care physician to ensure continuity of care. Please bring this discharge summary with you to your next office appointment so nia Follow-up appointments: Make a follow-up appointment with your PCP within the next week. It is very important that you follow up with them shortly after discharge from the hospital. Please follow-up with [facility] as soon as possible after your EGD in July Medications: Your medication list has been reviewed and reconciled upon discharge to ensure accuracy and continuity of care. An updated list of all your medications is included with your hospital discharge paperwork. Please review this list closely, and make note of any changes. Take your medications as instructed; do not skip a dose of your medicines. Make sure all of your doctors know every medicine you are taking (including zbay-itw-cnwthbm medicines, vitamins, and supplements). Call your primary care provider before taking any new medicines (including qnoz-vwa-cryetju medicines, vitamins, and supplements), because some of these may interact with your current medications, or may make your symptoms worse. Tell your primary care provider if you cannot afford your medications. CONTACT YOUR PRIMARY CARE PROVIDER if you experience any of the following: Difficulty following your treatment plan, or difficulty taking medications CALL 911 OR GO TO THE EMERGENCY DEPARTMENT if you experience any of the following: Sudden, severe abdominal pain or nausea/vomiting Severe chest pain, or chest pain that radiates (moves) to your jaw or arm Sudden, severe shortness of breath or difficulty breathing Thank you for allowing us to participate in your care. Pending Studies at Discharge: No Stand-Alone Forms: My [facility], Smoking Cessation Medications and DC Order Prescriptions: Continued biotin 10 mg tablet 10 mg PO QAM Qty: 30 0RF ferrous sulfate [iron] 325 mg (65 mg iron) tablet 325 mg PO BID Qty: 60 0RF simvastatin 20 mg tablet 20 mg PO QAM Qty: 90 3RF spironolactone 50 mg tablet 50 mg PO QAM Qty: 90 3RF Rx Instructions: TAKE 1 TABLET BY MOUTH DAILY. bupropion HCl 150 mg tablet sustained-release 12 hr 150 mg PO BID Qty: 180 3RF Rx Instructions: TAKE 1 TABLET BY MOUTH TWICE DAILY. metformin 1,000 mg tablet 1,000 mg PO BID Qty: 180 3RF Hold Instructions: Resume on 02/10/24. Please resume after discussing with your PCP whether to continue with metformin given the fact that you have liver cirrhosis Rx Instructions: 1000 mg po bid. last filled 01/12/24 90 day supply furosemide 20 mg tablet 20 mg PO QAM Qty: 90 3RF omeprazole 40 mg capsule,delayed release(DR/EC) 40 mg PO BID Qty: 180 3RF Rx Instructions: TAKE 1 CAPSULE BY MOUTH TWICE DAILY FOR STOMACH ACID. (DME) pen needle, diabetic [TechLITE Pen Needle] 31 gauge x 5/16" needle See Rx Instructions .Route Qty: 100 11RF Rx Instructions: use BID with insulin injections ondansetron 4 mg tablet,disintegrating 4 mg translingual Q6H PRN (Reason: NAUSEA/VOMITING) Qty: 30 4RF Rx Instructions: DISSOLVE 1 TABLET ON THE TONGUE EVERY 6 HOURS NEEDED. propranolol 10 mg tablet 10 mg PO BID Qty: 60 4RF sertraline 50 mg tablet 50 mg PO DAILY Qty: 90 3RF Rx Instructions: will cont on welbutrin lorazepam 0.5 mg tablet 0.5 mg PO DAILY PRN (Reason: anxiety) Qty: 30 1RF albuterol sulfate 90 mcg/actuation HFA aerosol inhaler 2 inh inhalation Q6H PRN (Reason: shortness of breath or wheezing) Qty: 8.5 1RF cyanocobalamin (vitamin B-12) 1,000 mcg capsule 1,000 mcg PO QAM (DME) OneTouch Ultra Blue Test Strip Strip See Rx Instructions .ROUTE .MEDSUPPLY Dose Instruction: As directed Rx Instructions: TEST 3 TIMES A DAY FOR MULTIPLE DAILY INSULIN INJECTIONS (DME) Dexcom G7 [employer] Misc See Rx Instructions .Route Rx Instructions: As directed hydrocodone-homatropine [Hycodan] 5-1.5 mg/5 mL (5 mL) syrup 5 ml PO Q6H PRN (Reason: cough) Qty: 200 0RF cholecalciferol (vitamin D3) [Vitamin D3] 2,000 unit capsule 1,000 unit PO BID calcium carbonate [Calcium 600] 600 mg calcium (1,500 mg) Tablet 600 mg PO BID acetaminophen [Tylenol Extra Strength] 500 mg Tablet 500 mg PO Q6H PRN (Reason: Pain) insulin glargine [Lantus Solostar U-100 Insulin] 100 unit/mL (3 mL) insulin pen 4 unit subcut UD Rx Instructions: 4u subcut qam. No fill history available famotidine 20 mg tablet 20 mg PO UD Rx Instructions: filled 06/06 10 day supply #10 levothyroxine 175 mcg tablet 175 mcg PO UD Rx Instructions: 175mcg po qam. last filled 03/06 90 day supply levofloxacin 750 mg tablet 750 mg PO UD Rx Instructions: 750 mg po daily@1100. filled 06/04 2 day supply #2 insulin aspart U-100 [Novolog FlexPen U-100 Insulin] 100 unit/mL (3 mL) ins ulin pen 12 unit subcut UD Rx Instructions: 12u subcut daily. No fill history available warfarin 7.5 mg Tablet 7.5 mg PO DIRECTED Rx Instructions: ONLY ON Thursdays-no fill history warfarin 2.5 mg tablet 2.5 mg PO DIRECTED Protocol: Dose Management Condition: Saturday Dose/Route: 5 mg Instruction: 1 x 5 mg tablet Condition: Saturday Dose/Route: 2.5 mg Instruction: 1 x 2.5 mg tablet Condition: Saturday Dose/Route: 5 mg Instruction: 1 x 5 mg tablet Condition: Saturday Dose/Route: 5 mg Instruction: 1 x 5 mg tablet Condition: Dose/Route: 7.5 mg Instruction: 1 x 2.5 mg tablet, 1 x 5 mg tablet Condition: Saturday Dose/Route: 5 mg Instruction: 1 x 5 mg tablet Condition: Saturday Dose/Route: 5 mg Instruction: 1 x 5 mg tablet Protocol Text: Adjustment Start Date: Saturday02/11/24 INR Value: 1.8 INR Date: 02/11/24 Recheck Date: 02/18/24 Rx Instructions: 2.5 MG ON 06/17- last filled 07/2023 90 day supply warfarin 5 mg tablet 5 mg PO DIRECTED Protocol: Dose Management Condition: Saturday Dose/Route: 5 mg Instruction: 1 x 5 mg tablet Condition: Saturday Dose/Route: 2.5 mg Instruction: 1 x 2.5 mg tablet Condition: Saturday Dose/Route: 5 mg Instruction: 1 x 5 mg tablet Condition: Saturday Dose/Route: 5 mg Instruction: 1 x 5 mg tablet Condition: Dose/Route: 7.5 mg Instruction: 1 x 2.5 mg tablet, 1 x 5 mg tablet Condition: Saturday Dose/Route: 5 mg Instruction: 1 x 5 mg tablet Condition: Saturday Dose/Route: 5 mg Instruction: 1 x 5 mg tablet Protocol Text: Adjustment Start Date: Saturday02/11/24 INR Value: 1.8 INR Date: 02/11/24 Recheck Date: 02/18/24 Rx Instructions: SAT, SAT, SAT, SAT, SAT last filled 03/16/24 90 day supply levofloxacin 250 mg tablet 250 mg PO DAILY Qty: 30 0RF Discharge Orders: Discharge Order (Routine); Ordered 06/19/24 Ordered By: Johnny Betts/Other Patient Handouts: Polyethylene Glycol 3350 Powder For Oral S olution, Understanding Cirrhosis, ED Ascites Admission Data Admit Date/Time: 06/17/24 16:21 Attending Provider: Armando Viveros Admit Provider: Fidencio Corral Primary Care Provider: Neelam Cooper Other Providers: Fidencio Corral; Gabe Nolan I Supervising Physician Co-Signing Physician Notes I personally examined the patient and verified all trivedi points of history and exam, discussed case, and agree with decision making with Dr Yost Had 3 L of paracentesis, also drank a good bit of the bowel prep and is having clear bowel movements. Belly overall feels better. vitals noted nad heent nc at mmm breathing unlabored no accessory muscles good effort skin no rashes no pallor or icterus. abdominal bloating - Ascites3 L was drained. Considered raising diuretics, but given his blood pressure being somewhat low, I suspect this would be more risk than benefit. Continue current dosing. We discussed outpatient paracenteses, for now he would prefer to have a diagnostic ultrasound to assess fluid volume in about 2 weeks and only a paracentesis if it seems like he is continuing to accumulate. -constipation - at least a good deal of his bloating and his diarrhea appear to be constipation with overflow -> re-discussed with pt. discussed options - Improved again with bowel prep. Continue MiraLAX, or MiraLAX and senna at home. otherwise as above. Safe/stable for discharge Resident Activity Tracking Resident Involvement: Resident Care Provided Care Provided: Adult Hospital Medicine
--- NOTE | 2024-06-19 18:02 | Billing Data ---
Date of Service June 19, 2024 Coding Level of Care Code 64188 IN/OBS DISCH 30 MIN/LESS
[2024-06-19 18:04] VITALS: BP 95/61; PULSE 84
== END 2024-06-19 18:04 | disposition home or self-care (01) ==
LOC: 2W 10:46 → ED 10:46 → SUATTDRO 16:21 → 2W 17:49
DX: Z76.82 Awaiting organ transplant status; K75.81 Nonalcoholic steatohepatitis (NASH); I81 Portal vein thrombosis; E03.9 Hypothyroidism, unspecified; E83.42 Hypomagnesemia; K72.90 Hepatic failure, unspecified without coma; R78.81 Bacteremia; R18.8 Other ascites; B95.3 Streptococcus pneumoniae as the cause of diseases classified elsewhere; R19.7 Diarrhea, unspecified; K21.9 Gastro-esophageal reflux disease without esophagitis; K55.069 Acute infarction of intestine, part and extent unspecified; Z87.891 Personal history of nicotine dependence; Z79.4 Long term (current) use of insulin; Z88.8 Allergy status to other drugs, medicaments and biological substances; I85.10 Secondary esophageal varices without bleeding; Z79.890 Hormone replacement therapy; Z79.84 Long term (current) use of oral hypoglycemic drugs; K74.60 Unspecified cirrhosis of liver; Z79.899 Other long term (current) drug therapy; K65.2 Spontaneous bacterial peritonitis; Z79.01 Long term (current) use of anticoagulants; K76.6 Portal hypertension; E11.9 Type 2 diabetes mellitus without complications

== ENCOUNTER 2025-01-25 11:18 | Inpatient (IN) ==
--- NOTE | 2025-01-25 11:40 | Emergency Department Note ---
Impression & Plan Symptomatic bradycardia, Anticoagulant long-term use, QT prolongation, Hypotension, Closed compression fracture of L1 vertebra, Fall, CHI (closed head injury) ED Provider Note NAME: LAKISHA WERNER AGE: 69 SEX: M : 1955 ARRIVES VIA: Walk-In INFORMANT: [Patient][, ] ED PROVIDER(S): [Brian Alvarenga MD] CHIEF COMPLAINT: Fall, closed head injury, back pain MEDICAL DECISION MAKING: Patient presents due to concern for fall down 2 or 3 stairs with head strike and back pain. C-spine was cleared at the time of evaluation. IV was established and blood work was obtained. The patient was ordered IV Tylenol. Rib series also ordered. BSG completed which is unremarkable. Patient did appear to have bradycardia as well as prolonged QT so the patient was ordered a gram of IV magnesium. Patient also ordered IV fluids. Patient's blood work shows a normal white count hemoglobin of 13.3 which is around the patient's baseline with a normal platelet count. Kidney function is unremarkable. INR of 2.4. Patient was noted to have a likely lumbar spine fracture with certainly may be from the fall given that he did have tenderness to the lumbar spine. Patient was ordered atropine 0.5 mg. He states that he noticed improvement in the dizziness. Patient did have improvement in his heart rate from the 40s to the 60s and 70s. Patient also did have improvement in his blood pressure. I did speak with the on-call hospitalist and the patient was admitted to the medicine service. Critical Care: I have personally spent 38 minutes of critical care time in direct management of this patient. This includes bedside care, interpretation of diagnostic studies, and testing, discussion with consultants, patient, and family members, and other require inpatient management activities. This 38 minutes is in excess of all separately billable procedures. Discussion w/ other healthcare providers: [None] Prior /Outside records reviewed: Reviewed part of a PCP visit note from November 24, 2024 from Neelam Barraza. No history of end-stage liver disease type 2 diabetes hypothyroidism patient reported with a history of portal vein thrombosis during hospitalization back in September 2022 and is on Coumadin. Differential diagnosis: Fracture, dislocation, contusion, strain, sprain, ICH, hemothorax, intra- abdominal injury, anemia among other causes were considered. Diagnostics, as interpreted by me: ECG: Sinus bradycardia, rate of 42, prolonged QT, left axis deviation no ST elevations, T wave inversion in lead III. Cardiac monitoring: An order was placed for continuous cardiac monitoring. The monitor shows a rate of 45 with sinus rhythm. [Patient was placed on pulse oximetry] Medical decision rules: Polish head CT rule Imaging studies: [I informally interpreted the patient's lumbar spine x-ray does show L1 compression fracture with formal report to follow.] [] HPI: Patient presents due to concern for fall. The patient reports that he was going up the stairs and tripped falling backward striking the back of his head. He states that he may have fallen back about 2 stairs. The patient also does complain of back pain. Patient reports a history of Coumadin use last checked about a week ago and was slightly elevated slightly greater than 3. Review the record shows the patient has a prior history of portal vein thrombosis for which she does take Coumadin. Patient states that typically his morning routine he administers his insulin and then goes upstairs for a shower and then subsequently eats. No BSG checked prior to arrival but patient reportedly did drink some orange juice prior to presenting here today. Patient denies any nausea or vomiting. The patient did strike the back of his head but denies any LOC. He does complain of mild left-sided chest wall pain since the fall as well as the thoracic and lumbar back pain. He reports that he may have had a skin tear to his left elbow. He did not report any significant bleeding. Not take anything for pain prior to arrival. No lower extremity or upper extremity weakness. PAST MEDICAL HISTORY: [See Below] PAST SURGICAL HISTORY: [See Below] SOCIAL HISTORY: [See Below] HOME MEDICATIONS: [See Below] ALLERGIES: [See Below] VITALS: [See Below] PHYSICAL EXAMINATION: GENERAL: NAD, non-toxic. Head: Normocephalic atraumatic. EYE EXAM: Normal conjunctiva. PERRL, no anisocoria and EOM's grossly intact w/o pain. OROPHARYNX: Moist mucus membranes, grossly normal dentition. NECK: Trachea midline, no stridor. No midline C-spine TTP. LUNGS: Clear to auscultation. Normal chest wall mechanics. HEART: Bradycardic, no MRG. ABDOMEN: Abdomen soft, non-tender, no masses, no rebound or guarding. BACK: Pain to palpation to the lower thoracic and upper lumbar spine. SKIN: Small skin tear noted to the posterior aspect of the left elbow currently hemostatic no significant hematoma or TTP. UPPER EXTREMITIES: Upper extremities are grossly normal. No TTP or deformity, skin tear as noted above. LOWER EXTREMITIES: Grossly normal, no edema. No TTP or deformity. NEURO EXAM: Awake and alert, follows commands, no obvious facial asymmetry, normal speech, moves all 4 extremities. Past Med/Surg History Problem List (Updated 01/25/25 @ 18:02 by Brian Alvarenga MD) CHI (closed head injury) (Acute) Fall (Acute) Closed compression fracture of L1 vertebra (Acute) Hypotension (Acute) Symptomatic bradycardia (Acute) QT prolongation (Acute) Fall Pain of left calf Leg pain Hypothyroidism Prolonged bleeding time Calf swelling Cirrhosis of liver End stage liver disease on the transplant list Controlled type 2 diabetes mellitus, with long-term current use of insulin History of esophageal varices Hypomagnesemia Chronic cough Abdominal ascites (Acute) Acute dyspnea (Acute) Decompensated cirrhosis Enterocolitis Lactic acidemia (Acute) Vitamin D deficiency Anticoagulant long-term use (Acute) Insomnia Weight loss Superior labrum [id number] (SLAP) tear of left shoulder (Chronic) Hypoglycemia Tremor Hyperbilirubinemia Awaiting liver transplant Anxiety and depression (Chronic) Mild renal insufficiency (Chronic) Hyperlipidemia (Chronic) Medical History History of MRSA infection (2021) History of recent hospitalization (07/2024) for infection pt is not sure details. hospitalized at [facility]. infection resolved per pt. had f/u with pcp since d/c on jul 17 2024 and sent to hospital for ascites (had paracentesis), kept as inpatient. Pt is not sure date of discharge. Coughing ongoing occ productive cough since apr 2024/ evaluated w/pcp/unknown etiology/much improved per pt. at current unproductive cough on occ. Gastritis none that pt aware of Tremor denies current or hx Anxiety and depression History of hyperlipidemia History of hypertension History of GI bleed History of esophageal varices hx banding History of COVID-19 approx 2021 - no hx hospitalization. History of colitis History of anemia Diarrhea ongoing problem CKD (chronic kidney disease), stage III Portal hypertension GERD (gastroesophageal reflux disease) Peripheral neuropathy History of biliary stent insertion (2013) pt reports he still has this stent. Patient on waiting list for liver transplant Spontaneous bacterial peritonitis hx 05/2024 - presumed 2nd strep pneumo, resolved to pt knowledge. Bacteremia due to Streptococcus pneumoniae hx, 05/2024 nm inpatient. resolved. Superior mesenteric vein thrombosis not that pt aware of current or hx Portal vein thrombosis pt reports they want to keep my blood pressure on the lower side due to the clot. BERNAL (nonalcoholic steatohepatitis) History of ascites last occurence /drained July 2024 Post traumatic stress disorder Surgical History History of abdominal paracentesis multiple, most recent july 2024. History of surgery of liver Hepatic lobectomy (benign tumor) S/P debridement ABDOMINAL WOUND 2017 History of herniorrhaphy WITH MESH-2018 History of ERCP hx 08/2021 @ [facility], maybe had one more recently with infection pt is not sure. Hx of hand surgery RT HAND/ARM SURGERY (METAL PLATE D/T FX) Hx of vasectomy History of esophagogastroduodenoscopy (EGD) History of colonoscopy History of cholecystectomy History of tooth extraction several Family History Mother Diabetes Cancer Grandmother No problems noted. Grandmother (Maternal) Diabetes Family/Other Heart disease Hypertension Father Lung cancer Other No family history of adverse response to anesthesia Denies family history of Ovarian cancer Prostate cancer Myocardial infarction Breast cancer Colorectal cancer Social History Smoking Status: Never smoker Tobacco Type: Cigarettes Age Started Using Tobacco: 17; Age Quit Using Tobacco: 31; packs per day: 1.5; Second Hand Exposure: No; Do You Dip or Chew Tobacco: No; Hx Alcohol Use: No (teenage yrs/social/none now) Hx Substance Use: No Preferred Language: Citizen Of [place] Communication Ability: Effective Visual Impairment: No Limitations Hearing Ability: Normal Concreter Required: No Beliefs That Will Affect Care: None marital status: Current Living Situation: Spouse Current Living Situation Comment: and dog current occupational status: retired 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 [employer] How many Children do You have: 3 Feels Safe at Home: Yes Childhood Exposure to Second-Hand Smoke: Yes Diet: regular caffeine: Yes during the past year weight has: remained stable Dental Care, Regularly: Yes Physical Activity Frequency: 3-4 Times per Week Seatbelt Use: never Sunscreen Use: No Do you think of yourself as: straight/heterosexual Sexual Activity: has been sexually active, but not for at least 12 months Gender Identity: Male Assistive Devices: Other Allergies Allergies Allergy/AdvReac Type Severity Reaction Status Date / Time exenatide [From Byetta] AdvReac Unknown Diarrhea Verified 11/24/24 10:55 Home Meds Home Medications Medication Instructions Recorded Confirmed cyanocobalamin (vitamin B-12) 1,000 mcg PO QAM 11/25/18 01/25/25 1,000 mcg capsule calcium carbonate (Calcium 600) 600 mg PO BID 12/25/18 01/25/25 acetaminophen 500 mg tablet 1,000 mg PO Q6 PRN Pain 07/03/20 01/25/25 (Tylenol Extra Strength) blood sugar diagnostic (OneTouch 02/10/21 01/19/25 Ultra Blue Test Strip) blood-glucose,cloth layer,cont 01/03/23 01/19/25 (Dexcom G7 Gastroenterology Physician) insulin glargine 100 unit/mL (3 4 unit subcut QAM 01/30/24 01/25/25 mL) subcutaneous pen (Lantus Solostar U-100 Insulin) insulin aspart U-100 100 unit/mL 1 sliding scale dose subcut WM 06/17/24 01/25/25 (3 mL) subcutaneous pen (Novolog FlexPen U-100 Insulin aspart) albuterol sulfate 90 mcg/actuation 2 inh inhalation UD PRN chronic 07/24/24 01/25/25 aerosol inhaler cough polyethylene glycol 3350 17 gram 17 g PO BID PRN constpation 07/24/24 01/25/25 oral powder packet (Miralax) sertraline 50 mg tablet 50 mg PO QAM 07/24/24 01/25/25 phytonadione (vitamin K1) 100 mcg 100 mcg PO DAILY 11/24/24 01/25/25 tablet cholecalciferol (vitamin D3) 25 25 mcg PO BID 12/20/24 01/25/25 mcg (1,000 unit) tablet (Vitamin D3) ondansetron 4 mg disintegrating 4 mg translingual Q6 PRN 12/20/24 01/25/25 tablet NAUSEA/VOMITING warfarin 2.5 mg tablet 2.5 mg PO DAILY 01/05/25 01/25/25 Previous Rx's Medication Instructions Recorded ferrous sulfate 325 mg (65 mg 325 mg PO BID #60 tabs 08/11/18 iron) tablet (iron) propranolol 10 mg tablet 10 mg PO BID #180 tabs 06/23/24 simvastatin 20 mg tablet 20 mg PO QAM #90 tabs 06/26/24 bupropion HCl 150 mg tablet,12 hr 150 mg PO BID #180 tabs 10/05/24 sustained-release levothyroxine 175 mcg tablet 175 mcg PO QAM #90 tabs 10/05/24 furosemide 20 mg tablet 20 mg PO QAM #90 tabs 10/12/24 pen needle, diabetic 31 gauge x #100 ea 10/12/2407/24" (TechLITE Pen Needle) spironolactone 50 mg tablet 50 mg PO QAM #90 tabs 10/26/24 lorazepam 0.5 mg tablet 0.5 mg PO DAILY PRN anxiety #30 11/30/24 tabs omeprazole 40 mg capsule,delayed 40 mg PO BID #180 caps 12/07/24 release Results & Data (ED) Vital Signs Vital Signs - 24 hr 01/25/25 11:28 01/25/25 11:43 01/25/25 12:10 Temperature 35.8 C L Temperature Source Temporal Artery Scan Pulse Rate 44 L Pulse Rate [Apical] 44 L Pulse Rhythm [Apical] Regular Pulse Strength [Apical] Normal Respiratory Rate 18 14 Respiratory Effort / Characteristics Non-Labored Spontaneous Non-Labored Spontaneous Respiratory Depth Normal Normal Respiratory Pattern Regular Regular Blood Pressure 90/63 L Blood Pressure [Left Arm] 108/58 L Blood Pressure Mean 72 Blood Pressure Mean [Left Arm] 74 Blood Pressure Position [Left Arm] Semi-fowlers Pulse Oximetry 99 92 Oxygen Delivery Method Nasal Cannula Room Air Room Air Sepsis Recent Fever Within 48 Hours No Sepsis New/Unexplained Change in Mental Status N/A Sepsis Action Taken by Nursing Physician Notified 01/25/25 12:32 01/25/25 13:00 01/25/25 14:00 Temperature Temperature Source Pulse Rate 41 L Pulse Rate [Apical] 42 L 45 L Pulse Rhythm [Apical] Regular Regular Pulse Strength [Apical] Normal Normal Respiratory Rate 22 18 Respiratory Effort / Characteristics Non-Labored Spontaneous Non-Labored Spontaneous Respiratory Depth Normal Normal Respiratory Pattern Regular Regular Blood Pressure Blood Pressure [Left Arm] 103/60 99/63 L Blood Pressure Mean Blood Pressure Mean [Left Arm] 74 75 Blood Pressure Position [Left Arm] Semi-fowlers Semi-fowlers Pulse Oximetry 99 100 Oxygen Delivery Method Room Air Room Air Sepsis Recent Fever Within 48 Hours Sepsis New/Unexplained Change in Mental Status Sepsis Action Taken by Nursing 01/25/25 15:00 01/25/25 15:00 Temperature Temperature Source Pulse Rate Pulse Rate [Apical] 61 64 Pulse Rhythm [Apical] Regular Pulse Strength [Apical] Normal Respiratory Rate 20 18 Respiratory Effort / Characteristics Non-Labored Spontaneous Respiratory Depth Normal Respiratory Pattern Regular Blood Pressure Blood Pressure [Left Arm] 118/67 118/67 Blood Pressure Mean Blood Pressure Mean [Left Arm] 84 84 Blood Pressure Position [Left Arm] Semi-fowlers Pulse Oximetry 98 96 Oxygen Delivery Method Room Air Room Air Sepsis Recent Fever Within 48 Hours Sepsis New/Unexplained Change in Mental Status Sepsis Action Taken by Longterm Medications Current Medication List: was personally reviewed by me Laboratory Data Attestation: I reviewed the patient's lab results. 01/25/25 11:50 01/25/25 11:50 Lab Results 01/25/25 01/25/25 01/25/25 Range/Units 11:50 12:07 13:18 WBC 7.89 (4.8-10.8) K/ul RBC 3.86 L (4.70-6.10) M/uL Hgb 13.3 L (14.0-18.0) g/dL POC Hgb 12.9 L (14.0-18.0) g/dl Hct 38.9 L (42.0-52.0) % POC Hct 38 L (42-52) % MCV 100.8 H (80.0-100.0) fL MCH 34.5 H (25.0-34.0) pg MCHC 34.2 (32.0-36.0) g/dL RDW Std Deviation 62.1 H (36.4-46.3) fL RDW Coeff of Debby 17.0 H (11.5-14.5) % Plt Count 274 (130-400) K/uL MPV 10.2 (9.4-12.4) fL Immature Gran % (Auto) 1.4 % Neut % (Auto) 78.7 % Lymph % (Auto) 8.1 % [place] % (Auto) 8.1 % Eos % (Auto) 2.9 % Baso % (Auto) 0.8 % Neut # (Auto) 6.21 (1.40-6.50) K/uL Lymph # (Auto) 0.64 L (1.20-3.40) K/uL [place] # (Auto) 0.64 H (0.11-0.59) K/uL Eos # (Auto) 0.23 (0.00-0.50) K/uL Baso # (Auto) 0.06 (0.00-0.20) K/uL Immature Gran # (Auto) 0.11 (0.01-0.20) K/uL PT Cancelled 24.5 H INR Cancelled 2.4 H APTT Cancelled 35 H PTT Ratio Cancelled 1.3 POC Sodium 141 (135-144) mmol/L Sodium 137 (136-145) mmol/L POC Potassium 3.9 (3.3-5.0) mmol/L Potassium 3.5 (3.5-5.1) mmol/L POC Chloride 100 L (101-112) mmol/L Chloride 102 (98-107) mmol/L Carbon Dioxide 30 (21-32) mmol/L POC Total CO2 26 (24-31) mmol/L Anion Gap 5 (3-11) POC Anion Gap 19.0 (16-25) mmol/L POC BUN 12 (7-18) mg/dl BUN 12 (6-23) mg/dl Creatinine 0.99 (0.6-1.4) mg/dl POC Creatinine 1.0 (0.6-1.3) mg/dl Est Cr Clr Drug Dosing 71.8 ml/min eGFR 82.98 BUN/Creatinine Ratio 12.1 (10-20) Glucose 113 H (70-99(Fasting)) mg/dl POC Glucose (other) 116 H (70-99) mg/dl Calcium 8.8 (8.6-10.3) mg/dl POC Ioniz Calcium Catherine 1.07 L (1.12-1.32) mmol/l Magnesium 1.9 (1.7-2.4) mg/dl Total Bilirubin 2.1 H (0.2-1.0) mg/dl AST 46 H (13-39) U/L ALT 26 (7-52) U/L Alkaline Phosphatase 253 H (34-104) U/L Troponin I High Sens 6.5 (0-20) pg/ml Total Protein 7.9 (6.0-8.3) gm/dl Albumin 2.6 L (3.4-5.0) gm/dl Globulin 5.3 H (2.5-4.0) gm/dl Albumin/Globulin Ratio 0.5 L (0.9-2) TSH 10.139 H (0.300-4.500) uIu/ml Free T4 1.03 (0.61-1.60) ng/dl Administered Medications Discontinued Medications Atropine Sulfate (Atropine Sulfate 0.1 Mg/Ml 10ml Syr) 0.5 mg IV NOW STA Stop: 01/25/25 14:16 Last Admin: 01/25/25 14:27 Dose: 0.5 mg Documented By: Acetaminophen (Ofirmev) 1,000 mg in 100 mls @ 400 mls/hr IV NOW STA Stop: 01/25/25 12:11 Last Infusion: 01/25/25 14:06 Dose: Infused Documented By: Admin: 01/25/25 12:30 Dose: 400 mls/hr Documented By: MARIELENA Sodium Chloride (Nss) 500 mls @ 999 mls/hr IV .Q31M ONE Stop: 01/25/25 12:27 Last Infusion: 01/25/25 14:06 Dose: Infused Documented By: Admin: 01/25/25 12:30 Dose: 999 mls/hr Documented By: MARIELENA Magnesium Sulfate/Dextrose (Magnesium Sulfate / D5w) 1 gm in 100 mls @ 100 mls/hr IV NOW STA Stop: 01/25/25 13:23 Last Infusion: 01/25/25 14:06 Dose: Infused Documented By: Admin: 01/25/25 12:30 Dose: 100 mls/hr Documented By: MARIELENA Sodium Chloride (Nss) 500 mls @ 999 mls/hr IV .Q31M ONE Stop: 01/25/25 13:49 Last Infusion: 01/25/25 14:58 Dose: Infused Documented By: Admin: 01/25/25 13:53 Dose: 999 mls/hr Documented By: Sodium Chloride (Nss) 500 mls @ 999 mls/hr IV .Q31M ONE Stop: 01/25/25 14:52 Last Infusion: 01/25/25 15:30 Dose: Infused Documented By: [id number] Admin: 01/25/25 14:26 Dose: 999 mls/hr Documented By: Morphine Sulfate (Morphine Sulfate 4 Mg/Ml 1 Ml Carp\\Vial) 4 mg IV NOW STA Stop: 01/25/25 14:14 Last Admin: 01/25/25 14:27 Dose: 4 mg Documented By: Imaging Data Radiologist's Impression: Head CT 01/25/25 11:52 CT SCAN OF THE BRAIN WITHOUT IV CONTRAST CLINICAL HISTORY: Fall. Head injury. COMPARISON STUDY: CT of the brain dated 01/08/2025. TECHNIQUE: Unenhanced CT scan of the brain is performed from the vertex to the skull base. Images are reviewed in the axial, sagittal, coronal planes. A dose lowering technique was utilized adhering to the principles of ALARA. CT DOSE: 625.8 mGy.cm FINDINGS: Brain parenchyma: There is age-related involutional change noting minimal microangiopathic disease. There is no hemorrhage, mass effect, or evidence of acute territorial ischemia by CT criteria. Johnson-white matter differentiation is preserved. No extra-axial fluid collection is seen. Ventricles, sulci, cisterns: Prominent secondary to involutional change. Intracranial vasculature: There is atherosclerotic calcification of the cavernous carotid arteries. Calvarium: Unremarkable. Sinuses and mastoids: There is mild dependent mucosal thickening within the maxillary antra. The paranasal sinuses are otherwise clear. The mastoid air cells are well pneumatized. Orbits: The bony orbits are grossly intact. There are bilateral ocular lens implants. IMPRESSION: There is no hemorrhage, mass effect, or evidence of acute territorial ischemia by CT criteria. ACT 112: Negative or not required by law. Electronically signed by: Warren Pink M.D. 01/25/2025 12:32 PM Lumbar Spine X-Ray 01/25/25 11:52 XR lumbar spine 2-3V CLINICAL HISTORY: fall/trauma COMPARISON STUDY: CT of the abdomen and pelvis October 20, 2024. FINDINGS: A biliary stent and right upper quadrant surgical clips are incidentally noted. Alignment of the lumbar spine is anatomic. There is a moderate compression fracture of the superior endplate of L1 with 50 % loss of vertebral body height anteriorly. This is age indeterminate but new since CT of October 20, 2024. No additional lumbar spine fractures are present. Mild degenerative changes within lumbar spine are again noted. IMPRESSION: Moderate L1 compression fracture new since CT of October 20, 2024. This is likely subacute to acute. ACT 112: Negative or not required by law. Electronically signed by: Jalil Abraham M.D. 01/25/2025 1:54 PM Thoracic Spine X-Ray 01/25/25 11:52 XR thoracic spine 3V routine HISTORY: 69 years-old Male fall/trauma COMPARISON: CT abdomen and pelvis 10/20/2024, CT cervical spine 01/08/2025, chest CT 05/27/2024 TECHNIQUE: 3 views of the thoracic spine FINDINGS: Cardiac silhouette is enlarged. Surgical clips project over the abdominal right upper quadrant. Right basilar calcified granuloma. Mild multilevel intervertebral disc space narrowing with spondylitic spurring and facet arthrosis. There are chronic compression deformities at T3 and T4. Partially imaged L1 compression deformity, new from 10/20/2024. IMPRESSION: 1. No acute thoracic spine fracture or subluxation identified. 2. Age-indeterminate L1 compression deformity is new from 10/20/2024 suggestive of acute versus subacute etiology. 3. Chronic T3 and T4 compression deformities. ACT 112: Negative or not required by law. The above report was generated using voice recognition software. It may contain grammatical, syntax or spelling errors. Electronically signed by: Sujit Velarde M.D. 01/25/2025 1:50 PM Ribs w/Chest X-Ray 01/25/25 11:57 AP CHEST WITH LEFT-SIDED RIB SERIES CLINICAL HISTORY: Fall. Left-sided chest wall pain. FINDINGS: An AP upright chest radiograph Is obtained with 4 additional views from a left-sided rib series. Comparison is made to study dated 12/20/2024. Correlation is made with chest CT dated 05/27/2024. The heart is enlarged noting atherosclerotic calcification of the thoracic aorta. The pulmonary vasculature is noncongested. There are calcified mediastinal and hilar lymph nodes. Scarring/atelectasis is seen at the lung bases. There are scattered calcified granulomas. No airspace consolidation or large pleural effusion is identified. No pneumothorax is seen. The skeletal structures are osteopenic. There is no radiographic evidence of acute/displaced left-sided rib fracture on the rib series. The remainder of the bony thorax is grossly intact. Arthritic change is seen in the shoulders. Clips are noted in the right upper quadrant. A common bile duct stent is in place. Calcified granulomas are noted in the spleen. IMPRESSION: 1. Cardiomegaly with no acute cardiopulmonary abnormality identified. 2. There is no radiographic evidence of acute/displaced left-sided rib fracture on the rib series. ACT 112: Negative or not required by law. Electronically signed by: Warren Pink M.D. 01/25/2025 1:52 PM Discharge Plan Visit Data Chief Complaint: Fall Stated Complaint: FALL ED Provider: Brian Alvarenga Discharge Problem: Symptomatic bradycardia, Anticoagulant long-term use, QT prolongation, Hypotension, Closed compression fracture of L1 vertebra, Fall, CHI (closed head injury) Patient Disposition: Admitted As Inpatient Condition: Good Discharge Problem: Hypotension Qualifiers: Hypotension type: unspecified hypotension type Qualified Code(s): I95.9 - Hypotension, unspecified Closed compression fracture of L1 vertebra Qualifiers: Encounter type: initial encounter Qualified Code(s): S32.010A - Wedge compression fracture of first lumbar vertebra, initial encounter for closed fracture Fall Qualifiers: Encounter type: initial encounter Qualified Code(s): W19.XXXA - Unspecified fall, initial encounter CHI (closed head injury) Qualifiers: Encounter type: initial encounter Qualified Code(s): S09.90XA - Unspecified injury of head, initial encounter
[2025-01-25 12:22] LABS: Hematocrit (blood only) 38.9 % (42.0-52.0); Hemoglobin 13.3 g/dL (14.0-18.0); Immature Granulocytes # (auto) 0.11 K/uL (0.01-0.20); Immature Granulocytes % (auto) 1.4 %; Mean Corpuscular Hemoglobin 34.5 pg (25.0-34.0); Mean Corpuscular Volume 100.8 fL (80.0-100.0); Platelet Count 274 K/uL (130-400); RDW Standard Deviation 62.1 fL (36.4-46.3); Red Blood Count 3.86 M/uL (4.70-6.10); White Blood Count 7.89 K/ul (4.8-10.8)
[2025-01-25] MEDS: SODIUM CHLORIDE 0.9% 500 ML IV ONE ×3 (12:30→14:26)
[2025-01-25] MEDS: MAGNESIUM SULFATE / D5W 1 GM/100 ML BAG IV STA (12:30)
[2025-01-25] MEDS: ACETAMINOPHEN 1,000 MG/100 ML VIAL IV STA (12:30)
--- NOTE | 2025-01-25 12:33 | CT Scan Report ---
CT SCAN OF THE BRAIN WITHOUT IV CONTRAST CLINICAL HISTORY: Fall. Head injury. COMPARISON STUDY: CT of the brain dated 01/08/2025. TECHNIQUE: Unenhanced CT scan of the brain is performed from the vertex to the skull base. Images are reviewed in the axial, sagittal, coronal planes. A dose lowering technique was utilized adhering to the principles of ALARA. CT DOSE: 625.8 mGy.cm FINDINGS: Brain parenchyma: There is age-related involutional change noting minimal microangiopathic disease. T here is no hemorrhage, mass effect, or evidence of acute territorial ischemia by CT criteria. Johnson-wh ite matter differentiation is preserved. No extra-axial fluid collection is seen. Ventricles, sulci, cisterns: Prominent secondary to involutional change. Intracranial vasculature: There is atherosclerotic calcification of the cavernous carotid arteries. Calvarium: Unremarkable. Sinuses and mastoids: There is mild dependent mucosal thickening within the maxillary antra. The para nasal sinuses are otherwise clear. The mastoid air cells are well pneumatized. Orbits: The bony orbits are grossly intact. There are bilateral ocular lens implants. IMPRESSION: There is no hemorrhage, mass effect, or evidence of acute territorial ischemia by CT iveth ahn. ACT 112: Negative or not required by law. Electronically signed by: Warren Pink M.D. 01/25/2025 12:32 PM
[2025-01-25 12:41] LABS: Alanine Aminotransferase 26.0 U/L (7-52); Albumin Globulin Ratio 0.5 (0.9-2); Albumin Level 2.6 gm/dl (3.4-5.0); Alkaline Phosphatase 253.0 U/L (34-104); Anion Gap 5.0 (3-11); Bilirubin,Total 2.1 mg/dl (0.2-1.0); Blood Urea Nitrogen 12.0 mg/dl (6-23); Calcium 8.8 mg/dl (8.6-10.3); Carbon Dioxide 30.0 mmol/L (21-32); Chloride 102.0 mmol/L (98-107); Creatinine Clr Calc Pharmacy 71.8 ml/min; Globulin 5.3 gm/dl (2.5-4.0); Glucose 113.0 mg/dl (70-99(Fasting)); Magnesium 1.9 mg/dl (1.7-2.4); Potassium 3.5 mmol/L (3.5-5.1); Sodium 137.0 mmol/L (136-145); Total Protein 7.9 gm/dl (6.0-8.3)
[2025-01-25 12:55] LABS: Thyroid Stimulating Hormone 10.139 uIu/ml (0.300-4.500)
[2025-01-25 13:30] LABS: T4 Free Thyroxine 1.03 ng/dl (0.61-1.60)
--- NOTE | 2025-01-25 13:52 | XRay Report ---
XR thoracic spine 3V routine HISTORY: 69 years-old Male fall/trauma COMPARISON: CT abdomen and pelvis 10/20/2024, CT cervical spine 01/08/2025, chest CT 05/27/2024 TECHNIQUE: 3 views of the thoracic spine FINDINGS: Cardiac silhouette is enlarged. Surgical clips project over the abdominal right upper quadrant. Right basilar calcified granuloma. Mild multilevel intervertebral disc space narrowing with spondylitic sp urring and facet arthrosis. There are chronic compression deformities at T3 and T4. Partially imaged L1 compression deformity, new from 10/20/2024. IMPRESSION: 1. No acute thoracic spine fracture or subluxation identified. 2. Age-indeterminate L1 compression deformity is new from 10/20/2024 suggestive of acute versus subacu te etiology. 3. Chronic T3 and T4 compression deformities. ACT 112: Negative or not required by law. The above report was generated using voice recognition software. It may contain grammatical, syntax o r spelling errors. Electronically signed by: Sujit Velarde M.D. 01/25/2025 1:50 PM
--- NOTE | 2025-01-25 13:53 | XRay Report ---
AP CHEST WITH LEFT-SIDED RIB SERIES CLINICAL HISTORY: Fall. Left-sided chest wall pain. FINDINGS: An AP upright chest radiograph Is obtained with 4 additional views from a left-sided rib se trent. Comparison is made to study dated 12/20/2024. Correlation is made with chest CT dated 05/27/2024 . The heart is enlarged noting atherosclerotic calcification of the thoracic aorta. The pulmonary vas culature is noncongested. There are calcified mediastinal and hilar lymph nodes. Scarring/atelectasis is seen at the lung bases. There are scattered calcified granulomas. No airspace consolidation or la rge pleural effusion is identified. No pneumothorax is seen. The skeletal structures are osteopenic. There is no radiographic evidence of acute/displaced left-sided rib fracture on the rib series. The r emainder of the bony thorax is grossly intact. Arthritic change is seen in the shoulders. Clips are n oted in the right upper quadrant. A common bile duct stent is in place. Calcified granulomas are note d in the spleen. IMPRESSION: 1. Cardiomegaly with no acute cardiopulmonary abnormality identified. 2. There is no radiographic evidence of acute/displaced left-sided rib fracture on the rib series. ACT 112: Negative or not required by law. Electronically signed by: Warren Pink M.D. 01/25/2025 1:52 PM
--- NOTE | 2025-01-25 13:56 | XRay Report ---
XR lumbar spine 2-3V CLINICAL HISTORY: fall/trauma COMPARISON STUDY: CT of the abdomen and pelvis October 20, 2024. FINDINGS: A biliary stent and right upper quadrant surgical clips are incidentally noted. Alignment o f the lumbar spine is anatomic. There is a moderate compression fracture of the superior endplate of L1 with 50 % loss of vertebral body height anteriorly. This is age indeterminate but new since CT of October 20, 2024. No additional lumbar spine fractures are present. Mild degenerative changes within l umbar spine are again noted. IMPRESSION: Moderate L1 compression fracture new since CT of October 20, 2024. This is likely subacute to acute. ACT 112: Negative or not required by law. Electronically signed by: Jalil Abraham M.D. 01/25/2025 1:54 PM
[2025-01-25 14:15] LABS: INR 2.4 (0.9-1.1); Partial Thromboplastin Time 35 Seconds (21-31); Prothrombin Time 24.5 Seconds (9.0-12.0)
[2025-01-25] MEDS: MoRPHine SULFATE 4 MG/ML 1 ML CARP\\VIAL IV STA (14:27)
[2025-01-25] MEDS: ATROPINE SULFATE 0.1 MG/ML 10ML SYR IV STA (14:27)
--- NOTE | 2025-01-25 15:04 | History & Physical Report ---
Date of Service January 25, 2025 Assessment & Plan (1) Fall: (2) Anticoagulant long-term use: (3) End stage liver disease: (4) Controlled type 2 diabetes mellitus, with long-term current use of insulin: (5) Hypothyroidism: (6) Anxiety and depression: (7) Portal vein thrombosis: (8) QT prolongation: Plan Pt is a 69 yo male with a past medical hx of ESLD with hx of portal vein thrombosis now on warfarin chronically, hypothyroidism, CKD stage 3, GERD, T2DM on insulin, and hx esophageal varices who presents today for fall at home, admitted for new bradycardia. #Fall while on chronic anticoagulation - secondary to ambulatory dysfunction/tripped on slipper when going up the stairs, primarily came in due to hitting his head and he is on warfarin - XR lumbar spine shows moderate L1 compression fx - will treat medically with tylenol first line as he is on this chronically and then morphine for breakthrough - CT head negative, XR chest negative for acute pathology - will do PT/OT evals #Bradycardia - new issue, rates in the 40s on arrival to the ED, EKG showing sinus bradycardia - he does take propranolol 10mg BID but did not take a dose on morning of admission and denies any accidental doubling of dose the night before - BPs low but permissible so at time of admission he is hemodynamically stable and s/p 1 dose of atropine with rates improved into the 60s - will monitor overnight while holding propranolol - atropine can be ordered for severe (decompensated or symptomatic) bradycardia if recurrence occurs overnight #QT prolongation - EKG on admission showed very slight QT prolongation with permissible QTc - he is on several QT prolonging medications at home, will hold zofran for now - EKG in the am #Chest pain - XR chest/ribs wnl - initial trop negative, repeat pending - last echo was done in May 2024; EF 55-60% without wall or significant valvular pathology - given it is constant in nature and only occurred after his fall, will continue to follow but suspect MSK injury, can trial ice/heat to the area as tolerated #ESLD, stable - TBili baseline around 2, which is the same on admission - will hold home spironolactone today given relative hypotension, can restart tomorrow if BPs overnight permissible (same with his lasix) #Hx portal thrombosis, stable - on warfarin chronically, continue this #DMT2 on insulin, stable - at home takes glargine 4units qam +novolog with last HA1c of 6.2% in Dec 2024 - given age, would do more lose control of insulin to avoid lows for now; will do sliding scale only with liberal range given low amount of long acting used at home anyways #Hypothyroidism - TSH on admission 10, before that in May was 4.1 - continue home levothyroxine but would warrant dose adjustment or recheck on outpatient basis once discharged, but doubt this is strongly contributing to current bradycardic episode #Anxiety - will hold home benzo for now given some relative hypotension on admission; if does well throughout the evening can restart tomorrow or overnight if needed for symptom management VTE ppx: home warfarin History of Present Illness Chief Complaint: Fall, bradycardia Primary Care Provider: HATTIE Fleming Pt is a 69 yo male with a past medical hx of ESLD with hx of portal vein thrombosis now on warfarin chronically, hypothyroidism, CKD stage 3, GERD, T2DM on insulin, and hx esophageal varices who presents today for fall at home, admitted for new bradycardia. Pt seen at bedside with his Roshni and daughter. Pt was at home alone today and went to go up the stairs when he states that his slipper got caught and he fell. He states he did hit his head on the wall when he fell but denies LOC. He states he was told that since he is on warfarin that if he falls and hits his head he should come to the ER to be evaluated. He denies any preceding symptoms such as chest pain or SOB of feeling faint. He did, however, note that when he went to stand up he got very lightheaded and felt generally unwell. He states that sometimes if he is sitting for awhile he will get a bit lightheaded when he stands but this resolves on its own. He states that after the fall his main symptoms were sternal pain and low back pain. He states he continues to have pain in these areas which is not worsening and is well controlled with opioids. He states that the chest pain only started after he fell and that it feels sore, "like I bruised a rib or something" and does say that it is a bit tender to palpation. He denies any headache or double vision. No SOB at present. Chest pain has not worsened since onset and has been constant. He states he did not take his medication this morning as the fall happened around 10am. He states he called his to come help him up and she states that he did not look good and urged him to take the ambulance to the hospital, which he did. Other than this incident, he was in his typical state of health this morning. No notable recent medication changes. He is scarcely outside the past few years. He does note having some mild left shoulder discomfort when he was moving onto the CT machine but otherwise feeling well at the present. Allergies Allergy/AdvReac Type Severity Reaction Status Date / Time exenatide [From Byetta] AdvReac Unknown Diarrhea Verified 11/24/24 10:55 Home Medications Medication Instructions Recorded Confirmed Type ferrous sulfate 325 mg (65 mg 325 mg PO BID #60 tabs 08/11/18 01/25/25 Rx iron) tablet (iron) cyanocobalamin (vitamin B-12) 1,000 mcg PO QAM 11/25/18 01/25/25 History 1,000 mcg capsule calcium carbonate (Calcium 600) 600 mg PO BID 12/25/18 01/25/25 History acetaminophen 500 mg tablet 1,000 mg PO Q6 PRN Pain 07/03/20 01/25/25 History (Tylenol Extra Strength) blood sugar diagnostic (OneTouch 02/10/21 01/19/25 History Ultra Blue Test Strip) blood-glucose,cloth piecer,cont 01/03/23 01/19/25 History (Dexcom G7 Cigar Packer) insulin glargine 100 unit/mL (3 4 unit subcut QAM 01/30/24 01/25/25 History mL) subcutaneous pen (Lantus Solostar U-100 Insulin) insulin aspart U-100 100 unit/mL 1 sliding scale dose subcut WM 06/17/24 01/25/25 History (3 mL) subcutaneous pen (Novolog FlexPen U-100 Insulin aspart) propranolol 10 mg tablet 10 mg PO BID #180 tabs 06/23/24 01/25/25 Rx simvastatin 20 mg tablet 20 mg PO QAM #90 tabs 06/26/24 01/25/25 Rx albuterol sulfate 90 mcg/actuation 2 inh inhalation UD PRN chronic 07/24/24 01/25/25 History aerosol inhaler cough polyethylene glycol 3350 17 gram 17 g PO BID PRN constpation 07/24/24 01/25/25 History oral powder packet (Miralax) sertraline 50 mg tablet 50 mg PO QAM 07/24/24 01/25/25 History bupropion HCl 150 mg tablet,12 hr 150 mg PO BID #180 tabs 10/05/24 01/25/25 Rx sustained-release levothyroxine 175 mcg tablet 175 mcg PO QAM #90 tabs 10/05/24 01/25/25 Rx furosemide 20 mg tablet 20 mg PO QAM #90 tabs 10/12/24 01/25/25 Rx pen needle, diabetic 31 gauge x #100 ea 10/12/24 01/19/25 Rx 5/16" (TechLITE Pen Needle) spironolactone 50 mg tablet 50 mg PO QAM #90 tabs 10/26/24 01/25/25 Rx phytonadione (vitamin K1) 100 mcg 100 mcg PO DAILY 11/24/24 01/25/25 History tablet lorazepam 0.5 mg tablet 0.5 mg PO DAILY PRN anxiety #30 11/30/24 01/25/25 Rx tabs omeprazole 40 mg capsule,delayed 40 mg PO BID #180 caps 12/07/24 01/25/25 Rx release cholecalciferol (vitamin D3) 25 25 mcg PO BID 12/20/24 01/25/25 History mcg (1,000 unit) tablet (Vitamin D3) ondansetron 4 mg disintegrating 4 mg translingual Q6 PRN 12/20/24 01/25/25 History tablet NAUSEA/VOMITING warfarin 2.5 mg tablet 2.5 mg PO DAILY 01/05/25 01/25/25 History Past Med/Surg History Problem List (Updated 01/25/25 @ 18:02 by Brian Alvarenga MD) CHI (closed head injury) (Acute) Fall (Acute) Closed compression fracture of L1 vertebra (Acute) Hypotension (Acute) Symptomatic bradycardia (Acute) QT prolongation (Acute) Fall Pain of left calf Leg pain Hypothyroidism Prolonged bleeding time Calf swelling Cirrhosis of liver End stage liver disease on the transplant list Controlled type 2 diabetes mellitus, with long-term current use of insulin History of esophageal varices Hypomagnesemia Chronic cough Abdominal ascites (Acute) Acute dyspnea (Acute) Decompensated cirrhosis Enterocolitis Lactic acidemia (Acute) Vitamin D deficiency Anticoagulant long-term use (Acute) Insomnia Weight loss Superior labrum [id number] (SLAP) tear of left shoulder (Chronic) Hypoglycemia Tremor Hyperbilirubinemia Awaiting liver transplant Anxiety and depression (Chronic) Mild renal insufficiency (Chronic) Hyperlipidemia (Chronic) Medical History History of MRSA infection (2021) History of recent hospitalization (07/2024) for infection pt is not sure details. hospitalized at [facility]. infection resolved per pt. had f/u with pcp since d/c on jul 17 2024 and sent to hospital for ascites (had paracentesis), kept as inpatient. Pt is not sure date of discharge. Coughing ongoing occ productive cough since apr 2024/ evaluated w/pcp/unknown etiology/much improved per pt. at current unproductive cough on occ. Gastritis none that pt aware of Tremor denies current or hx Anxiety and depression History of hyperlipidemia History of hypertension History of GI bleed History of esophageal varices hx banding History of COVID-19 approx 2021 - no hx hospitalization. History of colitis History of anemia Diarrhea ongoing problem CKD (chronic kidney disease), stage III Portal hypertension GERD (gastroesophageal reflux disease) Peripheral neuropathy History of biliary stent insertion (2013) pt reports he still has this stent. Patient on waiting list for liver transplant Spontaneous bacterial peritonitis hx 05/2024 - presumed 2nd strep pneumo, resolved to pt knowledge. Bacteremia due to Streptococcus pneumoniae hx, 05/2024 [facility] inpatient. resolved. Superior mesenteric vein thrombosis not that pt aware of current or hx Portal vein thrombosis pt reports they want to keep my blood pressure on the lower side due to the clot. BERNAL (nonalcoholic steatohepatitis) History of ascites last occurence /drained July 2024 Post traumatic stress disorder Surgical History History of abdominal paracentesis multiple, most recent july 2024. History of surgery of liver Hepatic lobectomy (benign tumor) S/P debridement ABDOMINAL WOUND 2017 History of herniorrhaphy WITH MESH-2018 History of ERCP hx 08/2021 @ [facility], maybe had one more recently with infection pt is not sure. Hx of hand surgery RT HAND/ARM SURGERY (METAL PLATE D/T FX) Hx of vasectomy History of esophagogastroduodenoscopy (EGD) History of colonoscopy History of cholecystectomy History of tooth extraction several Family History Mother Diabetes Cancer Grandmother No problems noted. Grandmother (Maternal) Diabetes Family/Other Heart disease Hypertension Father Lung cancer Other No family history of adverse response to anesthesia Denies family history of Ovarian cancer Prostate cancer Myocardial infarction Breast cancer Colorectal cancer Social History Smoking Status: Former smoker Tobacco Type: Cigarettes Age Started Using Tobacco: 17; Age Quit Using Tobacco: 31; packs per day: 1.5; Second Hand Exposure: No; Do You Dip or Chew Tobacco: No; Hx Alcohol Use: No Hx Substance Use: No Preferred Language: Tamazight Communication Ability: Effective Visual Impairment: No Limitations Hearing Ability: Normal Clinical Specialty Rep Required: No Beliefs That Will Affect Care: None marital status: Current Living Situation: Spouse Current Living Situation Comment: and dog current occupational status: retired 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 [employer] How many Children do You have: 3 Other Information That Helps Us Care for You: No Feels Safe at Home: Yes Safety Concerns: Feels Safe At This Time Childhood Exposure to Second-Hand Smoke: Yes Diet: regular caffeine: Yes during the past year weight has: remained stable Dental Care, Regularly: Yes Physical Activity Frequency: 3-4 Times per Week Seatbelt Use: never Sunscreen Use: No Do you think of yourself as: straight/heterosexual Sexual Activity: has been sexually active, but not for at least 12 months Gender Identity: Male Assistive Devices: Denture - Upper and Denture - Lower Review of Systems Review of Systems: Per HPI. Physical Exam Physical Exam: General: Alert and oriented, no acute distress, quite pleasant gentleman HEENT: Normocephalic, moist oral mucosa, Cardio: Regular rate and rhythm, no murmur, Resp: Lungs clear to auscultation b/l, no wheezes or rhonchi, GI: Soft and nontender, bowel sounds active Skin: Warm, pink, dry, somewhat pale but not ill-appearing MSK: Chest area of pain noted to be mid lower sternum on the L side of sternal border, no palpable deformities, not tender to my palpation Results & Data Results & Data Vital Signs (Past 12 Hours) Vital Signs Temp Pulse Pulse Resp BP BP Pulse Ox 01/25/25 15:00 61 20 118/67 98 01/25/25 14:00 45 L 18 99/63 L 100 01/25/25 13:00 42 L 22 103/60 99 01/25/25 12:32 41 L 01/25/25 12:10 44 L 14 108/58 L 92 01/25/25 11:43 01/25/25 11:28 35.8 C L 44 L 18 90/63 L 99 O2 Del Method 01/25/25 15:00 Room Air 01/25/25 14:00 Room Air 01/25/25 13:00 Room Air 01/25/25 12:32 01/25/25 12:10 Room Air 01/25/25 11:43 Room Air 01/25/25 11:28 Nasal Cannula Supervising Physician Co-Signing Physician Notes I personally examined the patient and verified all trivedi points of history and exam, discussed case, and agree with decision making with Dr Kamari hernandez. Back does not hurt that much. Left rib area does. Did not feel any significant symptoms when he was bradycardicnotes that if he was not on monitor he does not think he would have even noticed. His daughter does note that he gets orthostatic. Vitals noted, in general he is awake and alert pleasant no distress. HEENT normocephalic atraumatic mucous membranes moist. Breathing unlabored no accessory muscle use good effort. Skin without rashes pallor or icterus. Neuro without focal deficits. Left rib cage rib approximately 6 stuck in inhalationgentle respiratory assist with improvement in tissue texture. Patient tolerated well. Fallmechanical. Fortunately no head bleed. Rib pain appears to be due to chest wall strainprobably from catching himself whenever he fellgentle OMT as above. Surprisingly minimal pain for L1 vertebral fracturepain control and supportive care. Bradycardiadoes not appear to have contributed to fall, and seems to a predominantly have not entirely been asymptomatiche does have some orthostasis which makes me wonder if he is not feeling a mild degree of medication induced symptoms. EKG was sinus bradycardia at 42nothing that appears like true cardiac rhythm/conduction disease. Hold propranolol and followprobably will hold altogether versus reinstituting at a lower dose (but he is on a fairly low dose already) anticoagulated Resident Activity Tracking Resident Involvement: Resident Care Provided Care Provided: Adult Hospital Medicine (5) Hypothyroidism Hypothyroidism type: unspecified Qualified Code(s): E03.9 - Hypothyroidism, unspecified
[2025-01-25] MEDS ORDERED: GLUCAGON FOR INJ 1 MG VIAL SQ PRN (18:02)
[2025-01-25] MEDS ORDERED: CARBOHYDRATES FOR HYPOGLYCEMIA PO PRN (18:02)
[2025-01-25] MEDS ORDERED: POLYETHYLENE (MIRALAX) 17 GM PACK PO PRN (18:02)
[2025-01-25] MEDS ORDERED: DEXTROSE 50% 50 ML SYRINGE IV PRN (18:02)
[2025-01-25] MEDS ORDERED: GLUCOSE 10 TAB/TUBE PO PRN (18:02)
[2025-01-25] MEDS ORDERED: GLUCOSE 40% GEL 15 GM TUBE PO PRN (18:02)
[2025-01-25] MEDS ORDERED: LEVOTHYROXINE SODIUM 175 MCG TABLET PO SCH (18:02)
[2025-01-25] MEDS ORDERED: ALBUTEROL HFA 8 GM INHALER INH PRN (18:02)
[2025-01-25] MEDS ORDERED: MELATONIN 3 MG TAB PO PRN (18:02)
--- NOTE | 2025-01-25 18:53 | Billing Data ---
Date of Service January 25, 2025 Coding Level of Care Code 84683 INT INP/OBS CARE
[2025-01-25] MEDS: INSULIN ASPART PER UNIT CHARGE SC SCH (20:06)
[2025-01-25] MEDS: FERROUS SULFATE 325 MG TAB PO SCH (20:08)
[2025-01-25] MEDS: LEVOTHYROXINE SODIUM 175 MCG TABLET PO SCH (20:08)
[2025-01-25] MEDS: CALCIUM CARBONATE 500 MG CHEWABLE TAB PO SCH (20:14)
[2025-01-25] MEDS: MoRPHine SULFATE 2 MG/ML CARP IV PRN (20:14)
[2025-01-26] MEDS: LIDOCAINE 5% 1 PATCH TD STA (00:17)
[2025-01-26] MEDS ORDERED: Nursing to Pharmacy Communication SCH (04:30)
[2025-01-26] MEDS: ONDANSETRON INJ 2 MG/ML 2 ML VIAL IV STA (05:20)
[2025-01-26] MEDS: REMOVE LIDODERM PATCH ONE (05:44)
--- NOTE | 2025-01-26 05:52 | Electrocardiogram Report ---
Test Reason : Blood Pressure : */* mmHG Vent. Rate : 42 BPM Atrial Rate : 42 BPM P-R Int : 160 ms QRS Dur : 76 ms QT Int : 528 ms P-R-T Axes : 47 -27 0 degrees QTcB Int : 440 ms Marked sinus bradycardia Low voltage QRS Septal infarct , age undetermined Nonspecific T wave abnormality Abnormal ECG When compared with ECG of 17-Jun-2024 11:03, Vent. rate has decreased by 42 bpm Septal infarct is now Present Confirmed by Jarad Mack ([id number]) on 01/26/2025 5:51:40 AM Referred By: REFERRED SELF Confirmed By: Jarad Mack
[2025-01-26 06:07] LABS: Hematocrit (blood only) 36.8 % (42.0-52.0); Hemoglobin 12.1 g/dL (14.0-18.0); Immature Granulocytes # (auto) 0.04 K/uL (0.01-0.20); Immature Granulocytes % (auto) 0.5 %; Mean Corpuscular Hemoglobin 33.0 pg (25.0-34.0); Mean Corpuscular Volume 100.3 fL (80.0-100.0); Platelet Count 259 K/uL (130-400); RDW Standard Deviation 61.5 fL (36.4-46.3); Red Blood Count 3.67 M/uL (4.70-6.10); White Blood Count 8.58 K/ul (4.8-10.8)
[2025-01-26 06:29] LABS: Alanine Aminotransferase 20.0 U/L (7-52); Albumin Globulin Ratio 0.5 (0.9-2); Albumin Level 2.3 gm/dl (3.4-5.0); Alkaline Phosphatase 223.0 U/L (34-104); Anion Gap 7.0 (3-11); Bilirubin,Total 2.5 mg/dl (0.2-1.0); Blood Urea Nitrogen 13.0 mg/dl (6-23); Calcium 8.7 mg/dl (8.6-10.3); Carbon Dioxide 24.0 mmol/L (21-32); Chloride 104.0 mmol/L (98-107); Creatinine Clr Calc Pharmacy 70.2 ml/min; Globulin 4.7 gm/dl (2.5-4.0); Glucose 99.0 mg/dl (70-99(Fasting)); Potassium 4.1 mmol/L (3.5-5.1); Sodium 135.0 mmol/L (136-145); Total Protein 7.0 gm/dl (6.0-8.3)
[2025-01-26] MEDS ORDERED: ONDANSETRON INJ 2 MG/ML 2 ML VIAL IV PRN (08:28)
[2025-01-26] MEDS: SERTRALINE HCL 50 MG TABLET PO SCH (08:37)
[2025-01-26] MEDS: WARFARIN SOD 2.5 MG TAB PO SCH (08:37)
[2025-01-26] MEDS: PHYTONADIONE 100 MCG TAB PO SCH (08:37)
--- NOTE | 2025-01-26 09:24 | Hospitalist Progress Note ---
Date of Service January 26, 2025 Assessment & Plan (1) Fall: (2) Anticoagulant long-term use: (3) End stage liver disease: (4) Controlled type 2 diabetes mellitus, with long-term current use of insulin: (5) Hypothyroidism: (6) Anxiety and depression: (7) Portal vein thrombosis: (8) QT prolongation: Plan Pt is a 69 yo male with a past medical hx of ESLD with hx of portal vein thrombosis now on warfarin chronically, hypothyroidism, CKD stage 3, GERD, T2DM on insulin, and hx esophageal varices who presented yesterday. Reports three episodes of vomiting this morning. He is being admitted for monitoring of his bradycardia and evaluation of vomiting. #Nausea#Vomiting -Had two episodes of vomiting this morning -Zofran as needed. Repeat EKG with QT 352 #Fall while on chronic anticoagulation - secondary to ambulatory dysfunction/tripped on slipper when going up the stairs, primarily came in due to hitting his head and he is on warfarin - XR lumbar spine shows moderate L1 compression fx - will treat medically with tylenol first line as he is on this chronically and then morphine for breakthrough - CT head negative, XR chest negative for acute pathology - will do PT/OT evals #Bradycardia - On telemetry he is sinus in the range of 70s to 80s overnight. -Will continue hold Propranolol as his blood pressure is in the lower side #QT prolongation - EKG on admission showed very slight QT prolongation with permissible QTc - EKG in the am with OT interval 352 #Chest pain - XR chest/ribs wnl - initial trop negative, repeat pending - last echo was done in May 2024; EF 55-60% without wall or significant valvular pathology - given it is constant in nature and only occurred after his fall, will continue to follow but suspect MSK injury, can trial ice/heat to the area as tolerated #ESLD, stable - TBili baseline around 2, which is the same on admission - will hold home spironolactone today given relative hypotension, can restart tomorrow if BPs overnight permissible (same with his lasix) #Hx portal thrombosis, stable - on warfarin chronically, continue this #DMT2 on insulin, stable - at home takes glargine 4units qam +novolog with last HA1c of 6.2% in Dec 2024 - given age, would do more lose control of insulin to avoid lows for now; will do sliding scale only with liberal range given low amount of long acting used at home anyways #Hypothyroidism - TSH on admission 10, before that in May was 4.1 - continue home levothyroxine but would warrant dose adjustment or recheck on outpatient basis once discharged, but doubt this is strongly contributing to current bradycardic episode #Anxiety - will hold home benzo for now given some relative hypotension on admission; if does well throughout the evening can restart tomorrow or overnight if needed for symptom management VTE ppx: home warfarin Admission and Anticipated Discharge Date Admission Date: January 25, 2025 Supervising Physician Co-Signing Physician Notes I personally examined the patient and verified all trivedi points of history and exam, discussed case, and agree with decision making with Dr Benites Had some vomiting this morning. Feels better now. Notes this has happened from time to time at home. Discussed therapy findings and recommendation of rehabhe would prefer to go home. Discussed risks/benefits and recommended he discuss with family. Vitals noted, in general he is awake and alert pleasant no distress. HEENT normocephalic atraumatic mucous membranes moist. Breathing unlabored no accessory muscle use good effort. Skin without rashes pallor or icterus. Neuro without focal deficits. Fallmechanical. Fortunately no head bleed. Rib pain appears to be due to chest wall strainprobably from catching himself whenever he fellgentle OMT done 01/25, continue Voltaren gel, taught deep breathing exercises.. Surprisingly minimal pain for L1 vertebral fracturepain control and supportive care. Bradycardia Had atropine in the ER. Daughter noted that he does get orthostatic symptoms from time to time, otherwise he denies much as far as symptoms. Has been sinus even whenever he was bradycardic and getting the atropine, his sinus rhythm now. Rates have been much more reasonable off of propranolol. Likely will need to DC this indefinitely weakness and unsteady gaitappears quite unsafe to go back homediscussed with patient that his fall risk is quite real not hypothetical, given that he came in with a fall and fortunately relatively minor injuries compared to what could have happened. He does not want to go to rehab, but seems to understand his weaknessimplored him to discuss further with his family. anticoagulated Subjective Aaron Pryor was seen and examined in the bedside this morning. He reported two episodes of vomiting this morning. He just got his breakfast on table. But reports he is nervous to eat, if he has vomiting again. He reports vomitus contains fine food particles. Chest pain overnight. EKG was done and was fine. Reports no current chest pain. Review of Systems Review of Systems: Per HPI. Physical Exam Physical Exam: General: Alert and oriented, no acute distress, quite pleasant gentleman HEENT: Normocephalic, moist oral mucosa, Cardio: Regular rate and rhythm, no murmur, Resp: Lungs clear to auscultation b/l, no wheezes or rhonchi, GI: Soft and nontender, bowel sounds active Skin: Warm, pink, dry, somewhat pale but not ill-appearing MSK: No palpable deformities on chest, no tenderness Results & Data Results & Data Vital Signs (Past 12 Hours) Vital Signs Temp Pulse Pulse Resp BP Pulse Ox O2 Del Method 01/26/25 07:30 36.5 C 79 21 102/70 94 Room Air 01/26/25 03:00 36.7 C 78 18 97/65 L 92 Room Air 01/26/25 01:00 89 01/25/25 22:55 36.7 C 84 16 107/66 95 Room Air Resident Activity Tracking Resident Involvement: Resident Care Provided Care Provided: Adult Hospital Medicine (5) Hypothyroidism Hypothyroidism type: unspecified Qualified Code(s): E03.9 - Hypothyroidism, unspecified
[2025-01-26] MEDS: MoRPHine SULFATE 4 MG/ML 1 ML CARP\\VIAL IV PRN (09:52)
[2025-01-26] MEDS: LIDOCAINE 5% 1 PATCH TD SCH (09:52)
[2025-01-26] MEDS: DICLOFENAC SOD 1% GEL 100 GM TUBE EXT SCH (09:53)
[2025-01-26 10:28] LABS: INR 2.5 (0.9-1.1); Prothrombin Time 24.9 Seconds (9.0-12.0)
[2025-01-26] MEDS ORDERED: LIDOCAINE 5% 1 PATCH TD SCH (12:00)
--- NOTE | 2025-01-26 19:08 | Billing Data ---
Date of Service January 26, 2025 Coding Level of Care Code 70231 SUB INP/OBS CARE MIN
[2025-01-26] MEDS: REMOVE LIDODERM PATCH SCH (20:40)
[2025-01-26] MEDS ORDERED: REMOVE LIDODERM PATCH SCH (21:00)
[2025-01-27 07:01] LABS: INR 2.0 (0.9-1.1); Prothrombin Time 20.4 Seconds (9.0-12.0)
--- NOTE | 2025-01-27 07:37 | Hospitalist Progress Note ---
Date of Service January 27, 2025 Assessment & Plan (1) Fall: (2) Anticoagulant long-term use: (3) End stage liver disease: (4) Controlled type 2 diabetes mellitus, with long-term current use of insulin: (5) Hypothyroidism: (6) Anxiety and depression: (7) Portal vein thrombosis: (8) QT prolongation: Plan Pt is a 69 yo male with a past medical hx of ESLD with hx of portal vein thrombosis now on warfarin chronically, hypothyroidism, CKD stage 3, GERD, T2DM on insulin, and hx esophageal varices who presented with concerns of fall at home. He was bradycardic on presentation. His heart rate is back to normal now. PT/OT evaluation recommend rehab before going home. He is ready to be discharged once bed is available in the rehab. #Fall while on chronic anticoagulation - secondary to ambulatory dysfunction/tripped on slipper when going up the stairs, primarily came in due to hitting his head and he is on warfarin - XR lumbar spine shows moderate L1 compression fx - will treat medically with tylenol first line as he is on this chronically and then morphine for breakthrough - CT head negative, XR chest negative for acute pathology - PT/OT evaluation recommend going to rehab before going to home. #Bradycardia (resolved) - On telemetry he is sinus in the range of 70s to 80s overnight. -Will continue hold Propranolol as his blood pressure is in the lower side -Transfer to med/surg #QT prolongation (resolved) - Likely 2/2 to Atropine he got in the ER #Chest pain - XR chest/ribs wnl - last echo was done in May 2024; EF 55-60% without wall or significant valvular pathology - given it is constant in nature and only occurred after his fall, will continue to follow but suspect MSK injury, can trial ice/heat to the area as tolerated #ESLD, stable - TBili baseline around 2, which is the same on admission - will hold home spironolactone today given relative hypotension, can restart tomorrow if BPs overnight permissible (same with his lasix) #Hx portal thrombosis, stable - on warfarin chronically, continue this #DMT2 on insulin, stable - at home takes glargine 4units qam +novolog with last HA1c of 6.2% in Dec 2024 - given age, would do more lose control of insulin to avoid lows for now; will do sliding scale only with liberal range given low amount of long acting used at home anyways #Hypothyroidism - TSH on admission 10, before that in May was 4.1 - continue home levothyroxine but would warrant dose adjustment or recheck on outpatient basis once discharged, but doubt this is strongly contributing to current bradycardic episode #Anxiety - will hold home benzo for now given some relative hypotension on admission -Resume Lorazepam on discharge VTE ppx: home warfarin Admission and Anticipated Discharge Date Admission Date: January 25, 2025 Supervising Physician Co-Signing Physician Notes I personally examined the patient and verified all trivedi points of history and exam, discussed case, and agree with decision making with Dr Sandoval feeling pretty good overall - CP controlled, back pain minimal. initially still recalcitrant to the idea of going anywhere for rehab, but after discussion that this is what his family believes is best, as well as my reiteration that i feel going home without getting stronger first flirts with at least disaster if not catastrophe, he agrees to consider rehab. Vitals noted, in general he is awake and alert pleasant no distress. HEENT normocephalic atraumatic mucous membranes moist. Breathing unlabored no accessory muscle use good effort. Skin without rashes pallor or icterus. Neuro without focal deficits. Fallmechanical. Fortunately no head bleed. Rib pain appears to be due to chest wall strainprobably from catching himself whenever he fellgentle OMT done 01/25, continue Voltaren gel, taught deep breathing exercises. pain improving. Surprisingly minimal pain for L1 vertebral fracture, on lidocaine patch Bradycardia Had atropine in the ER. Daughter noted that he does get orthostatic symptoms from time to time, otherwise he denies much as far as symptoms. Has been sinus even whenever he was bradycardic and getting the atropine, his sinus rhythm now. Rates have been much more reasonable off of propranolol. Likely will need to DC this indefinitely. HR has been good today again weakness and unsteady gaitappears quite unsafe to go back homefor rrehab anticoagulated Lala Walker was seen in the bedside this morning. He reported that he feels a lot better today. No nausea/vomiting overnight. Denies dizziness . No new concerns Review of Systems Review of Systems: Per HPI. Physical Exam Physical Exam: General: Alert and oriented, no acute distress, quite pleasant gentleman HEENT: Normocephalic, moist oral mucosa, Cardio: Regular rate and rhythm, no murmur, Resp: Lungs clear to auscultation b/l, no wheezes or rhonchi, GI: Soft and nontender, bowel sounds active Skin: Warm, pink, dry, somewhat pale but not ill-appearing MSK: No palpable deformities on chest, no tenderness Results & Data Results & Data Vital Signs (Past 12 Hours) Vital Signs Temp Pulse Pulse Resp BP BP Pulse Ox 01/27/25 07:11 87 01/27/25 03:01 36.5 C 78 19 95/58 L 93 01/26/25 22:53 36.6 C 87 17 97/64 L 92 01/26/25 19:48 36.5 C 88 17 108/74 95 O2 Del Method 01/27/25 07:11 01/27/25 03:01 Room Air 01/26/25 22:53 Room Air 01/26/25 19:48 Room Air Resident Activity Tracking Resident Involvement: Resident Care Provided Care Provided: Adult Hospital Medicine (5) Hypothyroidism Hypothyroidism type: unspecified Qualified Code(s): E03.9 - Hypothyroidism, unspecified
--- NOTE | 2025-01-27 08:56 | Billing Data ---
Date of Service January 27, 2025 Coding Level of Care Code 06583 SUB INP/OBS CARE
[2025-01-27] MEDS: WARFARIN SOD 2.5 MG TAB PO SCH (17:08)
[2025-01-27] MEDS: MoRPHine SULFATE 2 MG/ML CARP IV PRN (21:17)
--- NOTE | 2025-01-27 22:03 | Electrocardiogram Report ---
Test Reason : Blood Pressure : */* mmHG Vent. Rate : 66 BPM Atrial Rate : 66 BPM P-R Int : 158 ms QRS Dur : 76 ms QT Int : 446 ms P-R-T Axes : 38 -33 43 degrees QTcB Int : 467 ms Sinus rhythm with marked sinus arrhythmia Left axis deviation Nonspecific T wave abnormality Abnormal ECG When compared with ECG of 25-Jan-2025 11:58, Vent. rate has increased by 24 bpm Criteria for Septal infarct are no longer Present Confirmed by Jarad Mack ([id number] on 01/27/2025 10:03:09 PM Referred By: REFERRED SELF Confirmed By: Jarad Mack
--- NOTE | 2025-01-27 22:03 | Electrocardiogram Report ---
Test Reason : Blood Pressure : */* mmHG Vent. Rate : 77 BPM Atrial Rate : 77 BPM P-R Int : 154 ms QRS Dur : 78 ms QT Int : 400 ms P-R-T Axes : 42 -40 21 degrees QTcB Int : 452 ms Normal sinus rhythm Left axis deviation Low voltage QRS Possible Anterolateral infarct , age undetermined Nonspecific T wave abnormality Abnormal ECG When compared with ECG of 25-Jan-2025 23:04, No significant change was found Confirmed by Jarad Mack ([id number] on 01/27/2025 10:03:39 PM Referred By: REFERRED SELF Confirmed By: Jarad Mack
--- NOTE | 2025-01-27 22:04 | Electrocardiogram Report ---
Test Reason : Blood Pressure : */* mmHG Vent. Rate : 83 BPM Atrial Rate : 83 BPM P-R Int : 154 ms QRS Dur : 76 ms QT Int : 392 ms P-R-T Axes : 40 -46 -1 degrees QTcB Int : 461 ms Normal sinus rhythm Left axis deviation Low voltage QRS Possible Septal infarct (cited on or before 26-Jan-2025) Nonspecific T wave abnormality Abnormal ECG When compared with ECG of 26-Jan-2025 05:52, Questionable change in initial forces of Septal leads Nonspecific T wave abnormality, worse in Lateral leads Confirmed by Jarad Mack ([id number] on 01/27/2025 10:04:39 PM Referred By: REFERRED SELF Confirmed By: Jarad Mack
--- NOTE | 2025-01-28 06:59 | Hospitalist Progress Note ---
Date of Service January 28, 2025 Assessment & Plan (1) Fall: (2) Anticoagulant long-term use: (3) End stage liver disease: (4) Controlled type 2 diabetes mellitus, with long-term current use of insulin: (5) Hypothyroidism: (6) Anxiety and depression: (7) Portal vein thrombosis: (8) QT prolongation: Plan Pt is a 69 yo male with a past medical hx of ESLD with hx of portal vein thrombosis now on warfarin chronically, hypothyroidism, CKD stage 3, GERD, T2DM on insulin, and hx esophageal varices who presented with concerns of fall at home. He was bradycardic on presentation. His heart rate is back to normal now. PT/OT evaluation recommend rehab before going home. He is ready to be discharged once bed is available in the rehab. #Fall while on chronic anticoagulation - secondary to ambulatory dysfunction/tripped on slipper when going up the stairs, primarily came in due to hitting his head and he is on warfarin - XR lumbar spine shows moderate L1 compression fx - will treat medically with tylenol first line as he is on this chronically and then morphine for breakthrough - CT head negative, XR chest negative for acute pathology - PT/OT evaluation recommend going to rehab before going to home. #Bradycardia (resolved) - On telemetry he is sinus in the range of 70s to 80s overnight. -Will continue hold Propranolol as his blood pressure is in the lower side -Transfer to med/surg #QT prolongation (resolved) - Likely 2/2 to Atropine he got in the ER #Chest pain - XR chest/ribs wnl - last echo was done in May 2024; EF 55-60% without wall or significant valvular pathology - given it is constant in nature and only occurred after his fall, will continue to follow but suspect MSK injury, can trial ice/heat to the area as tolerated #ESLD, stable - TBili baseline around 2, which is the same on admission - will hold home spironolactone today given relative hypotension, can restart tomorrow if BPs overnight permissible (same with his lasix) #Hx portal thrombosis, stable - on warfarin chronically, continue this #DMT2 on insulin, stable - at home takes glargine 4units qam +novolog with last HA1c of 6.2% in Dec 2024 - given age, would do more lose control of insulin to avoid lows for now; will do sliding scale only with liberal range given low amount of long acting used at home anyways #Hypothyroidism - TSH on admission 10, before that in May was 4.1 - continue home levothyroxine but would warrant dose adjustment or recheck on outpatient basis once discharged, but doubt this is strongly contributing to current bradycardic episode #Anxiety - will hold home benzo for now given some relative hypotension on admission -Resume Lorazepam on discharge VTE ppx: home warfarin Tertiary Survey: Subjective: Feeling a lot better. Denies any new concerns CAGE-AID Screen: negative Objective: Lab Review: stable Imaging Review: No acute findings Physical Exam: General: - Alert: [Yes] - Oriented: [Yes] - GCS 15: [Yes] HEENT: - No pain/tenderness. - No lacerations/abrasions - No numbness/tingling - PERLAA. Normal Visual Acuity. No visual field cuts. No nystagmus. No contact lenses. Normal hearing. No relative afferent pupillary defect. No facial asymmetry. Normal palatal elev ation, uvula midline. Midline tongue protrusion. Shoulder shrug with 5/5 strength bilaterally. - Mucous membranes moist. Neck: - Midline Tenderness: No - Cleared C-Spine: Yes Thorax: - Pain/Tenderness: None - Lacerations/Abrasions: None - Swelling/Ecchymosis: None - Air/Bony Crepitus: None Cardiopulmonary: - Regular Rate and Rhythm. No murmurs, rubs or gallops. - Breath sounds CTAB. No wheezes, rales, or rhonchi. - Symmetrical Chest Rise Abdomen - Pain/Tenderness: None - Lacerations/Abrasions: None - No abdominal distension - Abdominal rigidity/guarding: None - Bowel Sounds: Present, normal - Pelvis stable Back/Spine - Lacerations/Abrasions: None - Swelling/Ecchymosis: None - Pain/Tenderness: None - Step-offs: None Extremities: - RUE: No deformity. No lacerations/abrasions. No swelling/ecchymosis. No pain/tenderness. Full active and passive range of motion. [employer] strength, elbow flexion/extension, shoulder flexion/extension/abduction/adduction/external rotation/internal rotation intact with 5/5 strength. Sensation intact to soft touch without deficit. Radial pulse intact, cap refill in the thumb <2 seconds. Extremity warm and dry. - RLE: No deformity. No lacerations/abrasions. No swelling/ecchymosis. No pain/tenderness. Full active and passive range of motion. [employer] strength, elbow flexion/extension, shoulder flexion/extension/abduction/adduction/external rotation/internal rotation intact with 5/5 strength. Sensation intact to soft touch without deficit. Radial pulse intact, cap refill in the thumb <2 seconds. Extremity warm and dry. - LLE: No deformity. No lacerations/abrasions. No swelling/ecchymosis. No pain/tenderness. Full active and passive range of motion. Hip flexion/extension, knee flexion/extension, ankle dorsiflexion/plantarflexion with 5/5 strength. Sensation intact to soft touch without deficit. PT pulse intact to palpation, cap refill in the hallux <2 seconds. Extremity warm and dry. - RLE: No deformity. No lacerations/abrasions. No swelling/ecchymosis. No pain/tenderness. Full active and passive range of motion. Hip flexion/extension, knee flexion/extension, ankle dorsiflexion/plantarflexion with 5/5 strength. Sensation intact to soft touch without deficit. PT pulse intact to palpation, cap refill in the hallux <2 seconds. Extremity warm and dry. Mental status Adequate for Full Exam: Yes C-Spine Cleared (Radiologically AND Clinically): Yes New Diagnoses Identified: No any New Consults Required: No any Admission and Anticipated Discharge Date Admission Date: January 25, 2025 Lala Walker was seen in the bedside this morning. He reported that he feels a lot better today. No nausea/vomiting overnight. Denies dizziness . No new concerns Review of Systems Review of Systems: Per HPI. Physical Exam Physical Exam: General: Alert and oriented, no acute distress, quite pleasant gentleman HEENT: Normocephalic, moist oral mucosa, Cardio: Regular rate and rhythm, no murmur, Resp: Lungs clear to auscultation b/l, no wheezes or rhonchi, GI: Soft and nontender, bowel sounds active Skin: Warm, pink, dry, somewhat pale but not ill-appearing MSK: No palpable deformities on chest, no tenderness Results & Data Results & Data Vital Signs (Past 12 Hours) Vital Signs Temp Pulse Pulse Resp BP Pulse Ox O2 Del Method 01/28/25 02:28 36.9 C 100 H 20 96/65 L 92 Room Air 01/27/25 22:46 36.9 C 80 20 95/58 L 91 Room Air 01/27/25 21:32 87 01/27/25 20:04 36.9 C 115 H 18 107/71 92 Room Air 01/27/25 19:30 Room Air (5) Hypothyroidism Hypothyroidism type: unspecified Qualified Code(s): E03.9 - Hypothyroidism, unspecified
[2025-01-28 08:16] LABS: INR 1.8 (0.9-1.1); Prothrombin Time 18.2 Seconds (9.0-12.0)
[2025-01-28 11:26] VITALS: RESP 18
--- NOTE | 2025-01-28 13:05 | Discharge Summary ---
Date of Service January 28, 2025 Admission HPI Per Admitting Provider Pt is a 69 yo male with a past medical hx of ESLD with hx of portal vein thrombosis now on warfarin chronically, hypothyroidism, CKD stage 3, GERD, T2DM on insulin, and hx esophageal varices who presents today for fall at home, admitted for new bradycardia. Pt seen at bedside with his Roshni and daughter. Pt was at home alone today and went to go up the stairs when he states that his slipper got caught and he fell. He states he did hit his head on the wall when he fell but denies LOC. He states he was told that since he is on warfarin that if he falls and hits his head he should come to the ER to be evaluated. He denies any preceding symptoms such as chest pain or SOB of feeling faint. He did, however, note that when he went to stand up he got very lightheaded and felt generally unwell. He states that sometimes if he is sitting for awhile he will get a bit lightheaded when he stands but this resolves on its own. He states that after the fall his main symptoms were sternal pain and low back pain. He states he continues to have pain in these areas which is not worsening and is well controlled with opioids. He states that the chest pain only started after he fell and that it feels sore, "like I bruised a rib or something" and does say that it is a bit tender to palpation. He denies any headache or double vision. No SOB at present. Chest pain has not worsened since onset and has been constant. He states he did not take his medication this morning as the fall happened around 10am. He states he called his to come help him up and she states that he did not look good and urged him to take the ambulance to the hospital, which he did. Other than this incident, he was in his typical state of health this morning. No notable recent medication changes. He is scarcely outside the past few years. He does note having some mild left shoulder discomfort when he was moving onto the CT machine but otherwise feeling well at the present. Admission Exam Per Admitting Provider General: Alert and oriented, no acute distress, quite pleasant gentleman HEENT: Normocephalic, moist oral mucosa, Cardio: Regular rate and rhythm, no murmur, Resp: Lungs clear to auscultation b/l, no wheezes or rhonchi, GI: Soft and nontender, bowel sounds active Skin: Warm, pink, dry, somewhat pale but not ill-appearing MSK: Chest area of pain noted to be mid lower sternum on the L side of sternal border, no palpable deformities, not tender to my palpation Principal Diagnosis 1. Fall 2. Bradycardia(Resolved) Discharge Exam General: Alert and oriented, no acute distress, quite pleasant gentleman HEENT: Normocephalic, moist oral mucosa, Cardio: Regular rate and rhythm, no murmur, Resp: Lungs clear to auscultation b/l, no wheezes or rhonchi, GI: Soft and nontender, bowel sounds active Skin: Warm, pink, dry, somewhat pale but not ill-appearing MSK: No palpable deformities on chest, no tenderness Discharge Data Allergies Allergy/AdvReac Type Severity Reaction Status Date / Time exenatide [From [place]] AdvReac Unknown Diarrhea Verified 11/24/24 10:55 Consultations 01/25/25 14:22 ED Decision to Admit Stat 01/27/25 17:34 Burn CD for patient Routine Ordered Studies 01/25/25 11:52 CT head/brain wo con Stat Hospital Course (1) Fall: (2) Anticoagulant long-term use: (3) End stage liver disease: (4) Controlled type 2 diabetes mellitus, with long-term current use of insulin: (5) Hypothyroidism: (6) Anxiety and depression: (7) Portal vein thrombosis: (8) QT prolongation: Plan Pt is a 69 yo male with a past medical hx of ESLD with hx of portal vein thrombosis now on warfarin chronically, hypothyroidism, CKD stage 3, GERD, T2DM on insulin, and hx esophageal varices who presented with concerns of fall at home. He was bradycardic on presentation. His heart rate is back to normal now. PT/OT evaluation recommend rehab before going home. He is ready to be discharged today, [facility] #Fall while on chronic anticoagulation - secondary to ambulatory dysfunction/tripped on slipper when going up the stairs, primarily came in due to hitting his head and he is on warfarin - XR lumbar spine shows moderate L1 compression fx - will treat medically with tylenol first line as he is on this chronically and then morphine for breakthrough - CT head negative, XR chest negative for acute pathology - PT/OT evaluation recommend going to rehab before going to home. #Bradycardia (resolved) - On telemetry he is sinus in the range of 70s to 80s overnight. -Will continue hold Propranolol as his blood pressure is in the lower side -Transfer to med/surg #QT prolongation (resolved) - Likely 2/2 to Atropine he got in the ER #Chest pain - XR chest/ribs wnl - last echo was done in May 2024; EF 55-60% without wall or significant valvular pathology - given it is constant in nature and only occurred after his fall, will continue to follow but suspect MSK injury, can trial ice/heat to the area as tolerated #ESLD, stable - TBili baseline around 2, which is the same on admission - will hold home spironolactone today given relative hypotension, can restart tomorrow if BPs overnight permissible (same with his lasix) #Hx portal thrombosis, stable - on warfarin chronically, continue this #DMT2 on insulin, stable - at home takes glargine 4units qam +novolog with last HA1c of 6.2% in Dec 2024 - given age, would do more lose control of insulin to avoid lows for now; will do sliding scale only with liberal range given low amount of long acting used at home anyways #Hypothyroidism - TSH on admission 10, before that in May was 4.1 - continue home levothyroxine but would warrant dose adjustment or recheck on outpatient basis once discharged, but doubt this is strongly contributing to current bradycardic episode #Anxiety - will hold home benzo for now given some relative hypotension on admission -Resume Lorazepam on discharge Tertiary Survey: Subjective: Feeling a lot better. Denies any new concerns CAGE-AID Screen: negative Objective: Lab Review: stable Imaging Review: No acute findings Physical Exam: General: - Alert: [Yes] - Oriented: [Yes] - GCS 15: [Yes] HEENT: - No pain/tenderness. - No lacerations/abrasions - No numbness/tingling - PERLAA. Normal Visual Acuity. No visual field cuts. No nystagmus. No contact lenses. Normal hearing. No relative afferent pupillary defect. No facial asymmetry. Normal palatal elevation, uvula midline. Midline tongue protrusion. Shoulder shrug with 5/5 strength bilaterally. - Mucous membranes moist. Neck: - Midline Tenderness: No - Cleared C-Spine: Yes Thorax: - Pain/Tenderness: None - Lacerations/Abrasions: None - Swelling/Ecchymosis: None - Air/Bony Crepitus: None Cardiopulmonary: - Regular Rate and Rhythm. No murmurs, rubs or gallops. - Breath sounds CTAB. No wheezes, rales, or rhonchi. - Symmetrical Chest Rise Abdomen - Pain/Tenderness: None - Lacerations/Abrasions: None - No abdominal distension - Abdominal rigidity/guarding: None - Bowel Sounds: Present, normal - Pelvis stable Back/Spine - Lacerations/Abrasions: None - Swelling/Ecchymosis: None - Pain/Tenderness: None - Step-offs: None Extremities: - RUE: No deformity. No lacerations/abrasions. No swelling/ecchymosis. No pain/tenderness. Full active and passive range of motion. Rail Tractor Operator strength, elbow flexion/extension, shoulder flexion/extension/abduction/adduction/external rotation/internal rotation intact with 5/5 strength. Sensation intact to soft touch without deficit. Radial pulse intact, cap refill in the thumb <2 seconds. Extremity warm and dry. - RLE: No deformity. No lacerations/abrasions. No swelling/ecchymosis. No pain/tenderness. Full active and passive range of motion. Rail Tractor Operator strength, elbow flexion/extension, shoulder flexion/extension/abduction/adduction/external rotation/internal rotation intact with 5/5 strength. Sensation intact to soft touch without deficit. Radial pulse intact, cap refill in the thumb <2 seconds. Extremity warm and dry. - LLE: No deformity. No lacerations/abrasions. No swelling/ecchymosis. No pain/tenderness. Full active and passive range of motion. Hip flexion/extension, knee flexion/extension, ankle dorsiflexion/plantarflexion with 5/5 strength. Sensation intact to soft touch without deficit. PT pulse intact to palpation, cap refill in the hallux <2 seconds. Extremity warm and dry. - RLE: No deformity. No lacerations/abrasions. No swelling/ecchymosis. No pain/tenderness. Full active and passive range of motion. Hip flexion/extension, knee flexion/extension, ankle dorsiflexion/plantarflexion with 5/5 strength. Sensation intact to soft touch without deficit. PT pulse intact to palpation, cap refill in the hallux <2 seconds. Extremity warm and dry. Mental status Adequate for Full Exam: Yes C-Spine Cleared (Radiologically AND Clinically): Yes New Diagnoses Identified: No any New Consults Required: No any Total Time Total Time Spent Total Time Spent (In Minutes): <30 Discharge Plan Discharge Items Patient Disposition: Transfer Inpatient Rehab Fac Reason For Visit: FALL, BRADYCARDIA Discharge Diagnosis: 1. Fall 2. Symptomatic bradycardia(Resolved) Condition on Discharge: Good Activity: Resume your previous activity Non-emergency contact: Primary Care Provider Call non-emergency contact if: you have any medication questions and your symptoms worsen Follow-up/Referrals: Neelam Cooper CRNP [Primary Care Provider] - 02/08/25 10:30 am (Hospital follow up appointment on February 08 at 10:30 am.) Diet: Regular Addtl Attending Provider Instructions: You came in hospital with history of fall at home. On evaluation you were found to have slow heart rate on admission. Because of this, medicine called propranolol you were taking at home was hold as it lowers your heart rate. We monitored you on Telemetry and your heart rate improved. You were also evaluated by Physical Therapy on hospital and they recommended to go to rehab before going home. Medication -Please stop taking Propranolol as it attributed to your low heart rate. -Please stop Furosemide(Lasix) because your Blood pressure is in lower side. Lasix further decrease your Blood Pressure. -Please continue taking Spironolactone at home. Followup -Please followup with your primary care provider within a week from hospital discharge. It is very important to followup with your primary care provider after hospital discharge. -Please followup with podiatry in the outpatient for wound in your left toe. Pending Studies at Discharge: No Stand-Alone Forms: My [employer], Smoking Cessation Skilled Items Patient informed of condition?: Yes DNR: No Discharge Level of Care: Acute rehab Communicable Disease: No Discharge Prognosis: Improving Lines: None Urinary Catheter: No Medications and DC Order Prescriptions: New diclofenac sodium [Voltaren Arthritis Pain] 1 % Gel 2 g EXT QID 10 Days Qty: 100 0RF Continued warfarin 2.5 mg tablet 2.5 mg PO DAILY Rx Instructions: Per [facility] [id number] ferrous sulfate [iron] 325 mg (65 mg iron) tablet 325 mg PO BID Qty: 60 0RF simvastatin 20 mg tablet 20 mg PO QAM Qty: 90 3RF bupropion HCl 150 mg tablet sustained-release 12 hr 150 mg PO BID Qty: 180 3RF levothyroxine 175 mcg tablet 175 mcg PO QAM Qty: 90 3RF (DME) pen needle, diabetic [TechLITE Pen Needle] 31 gauge x 5/16" needle See Rx Instructions .Route Qty: 100 11RF Rx Instructions: use BID with insulin injections spironolactone 50 mg tablet 50 mg PO QAM Qty: 90 3RF lorazepam 0.5 mg tablet 0.5 mg PO DAILY PRN (Reason: anxiety) Qty: 30 0RF omeprazole 40 mg capsule,delayed release(DR/EC) 40 mg PO BID Qty: 180 3RF cyanocobalamin (vitamin B-12) 1,000 mcg capsule 1,000 mcg PO QAM (DME) OneTouch Ultra Blue Test Strip Strip See Rx Instructions .ROUTE .MEDSUPPLY Dose Instruction: As directed Rx Instructions: TEST 3 TIMES A DAY FOR MULTIPLE DAILY INSULIN INJECTIONS (DME) Dexcom G7 Mattress Renovator Misc See Rx Instructions .Route Rx Instructions: As directed phytonadione (vitamin K1) 100 mcg tablet 100 mcg PO DAILY calcium carbonate [Calcium 600] 600 mg calcium (1,500 mg) Tablet 600 mg PO BID acetaminophen [Tylenol Extra Strength] 500 mg Tablet 1,000 mg PO Q6 PRN (Reason: Pain) insulin glargine [Lantus Solostar U-100 Insulin] 100 unit/mL (3 mL) insulin pen 4 unit subcut QAM insulin aspart U-100 [Novolog FlexPen U-100 Insulin] 100 unit/mL (3 mL) insulin pen 1 sliding scale dose subcut WM albuterol sulfate 90 mcg/actuation HFA aerosol inhaler 2 inh inhalation UD PRN (Reason: chronic cough) sertraline 50 mg tablet 50 mg PO QAM Rx Instructions: will cont on welbutrin polyethylene glycol 3350 [Miralax] 17 gram Powder In Packet 17 g PO BID PRN (Reason: constpation) ondansetron 4 mg tablet,disintegrating 4 mg translingual Q6 PRN (Reason: NAUSEA/VOMITING) Patient Comments: under the tongue Rx Instructions: DISSOLVE 1 TABLET ON THE TONGUE EVERY 6 HOURS NEEDED. cholecalciferol (vitamin D3) [Vitamin D3] 25 mcg (1,000 unit) Tablet 25 mcg PO BID Discontinued propranolol 10 mg tablet 10 mg PO BID Qty: 180 1RF furosemide 20 mg tablet 20 mg PO QAM Qty: 90 3RF Discharge Orders: Discharge Order (Routine); Ordered 01/28/25 Ordered By: Celina Sandoval Admission Data Admit Date/Time: 01/25/25 15:49 Attending Provider: Armando Viveros Admit Provider: Armando Viveros Primary Care Provider: Neelam Cooper Other Providers: Armando Viveros; [facility],Health Supervising Physician Co-Signing Physician Notes I personally examined the patient and verified all trivedi points of history and exam, discussed case, and agree with decision making with Dr Sandoval chest and back pain again. Feels like before.. No other new complaints. Vitals noted, in general he is awake and alert pleasant appears a little bit uncomfortable. Left ribroughly rib 5 or 6 still a bit inhaled and tenderpalpation on his rib reproduces his chest pain exactly, and around the back where his rib articulates with his thoracic spine is where his back pain isbalanced ligamentous tension and respiratory assist OMT done with some improvement in tissue texture, patient tolerated well. Breathing unlabored no accessory muscle use good effort. Skin without rashes pallor or icterus. Neuro without focal deficits. Fallmechanical. Fortunately no head bleed. Rib pain appears to be due to chest wall strainprobably from catching himself whenever he fellgentle OMT done 01/25, and 01/28, continue Voltaren gel, taught deep breathing exercises. feels well enough for rehab. Surprisingly minimal pain for L1 vertebral fracture, on lidocaine patch Bradycardia Had atropine in the ER. Daughter noted that he does get orthostatic symptoms from time to time, otherwise he denies much as far as symptoms. Has been sinus even whenever he was bradycardic and getting the atropine, his sinus rhythm now. Rates have been much more reasonable off of propranolol. Likely will need to DC this indefinitely. follow - if needs to be restarted would do lower dosing (?10mg daily) but would default to likely propranolol being dc'd indefinitely. weakness and unsteady gaitappears quite unsafe to go back homefor rehab today anticoagulated - INR today 1.8 (was 2.4 on admission) - continue coumadin, follow daily INR, suspect drop in INR likely due to diet changes in the hospital compared to diet at home. on coumadin for portal vein thrombosis (chronic, longstanding)
--- NOTE | 2025-01-28 13:21 | Billing Data ---
Date of Service January 28, 2025 Coding Level of Care Code 20524 IN/OBS DISCH 30 MIN/LESS
[2025-01-28 15:13] VITALS: PULSE 91; TEMP 97.7; O2SAT 95
[2025-01-28 15:15] VITALS: BP 101/69
[2025-01-28] MEDS: ACETAMINOPHEN 500 MG TAB PO PRN (15:31)
== END 2025-01-28 16:25 | DRG 308 ==
LOC: ED 11:18 → 2E 15:49

== ENCOUNTER 2025-02-23 11:02 | Inpatient (IN) ==
[2025-02-23] MEDS: SODIUM CHLORIDE 0.9% 1,000 ML IV SCH (11:29)
--- NOTE | 2025-02-23 11:39 | Emergency Department Note ---
Impression & Plan Generalized weakness, Dehydration, Decreased oral intake, Pleural effusion, left ED Provider Note ED Provider Note NAME: LAKISHA WERNER AGE:69 SEX: Male : 1955 ARRIVES VIA: EMS INFORMANT: Patient ED PROVIDER(s): Maria Antonia Nielsen DO CHIEF COMPLAINT: weakness, fatigue HPI: This is a 69-year-old male with increased fatigue and weakness over the course of the week. Patient states he was discharged home from rehab about a week ago after he went there to help heal following a broken bone to his foot. Patient states some of his medications were changed however he does not know which ones. Patient states he takes medications for his liver because he needs a transplant but has not had one yet. Patient denies any history of heart, lung, or kidney problems. Patient denies any recent fevers, chills, or URI symptoms. He denies any chest pain, abdominal pain or difficulty breathing. Patient states he is constipated and has not had a bowel movement in 2 days. Patient denies any change in urine or urinary habits. He denies any leg swelling. Patient denies any new falls or new trauma. PAST MEDICAL HISTORY:See Below PAST SURGICAL HISTORY:See Below FAMILY HISTORY:See Below SOCIAL HISTORY:See Below HOME MEDICATIONS:See Below ALLERGIES:See Below VITALS:See Below PHYSICAL EXAMINATION: GENERAL: alert, fatigued appearing, well nourished, no distress, non-toxic EYE EXAM: normal conjunctiva, PERRL and EOM's grossly intact OROPHARYNX: no exudate, no erythema, lips, buccal mucosa, and tongue normal and mucous membranes are very dry NECK: supple, no nuchal rigidity, no adenopathy, non-tender LUNGS: Clear to auscultation. Normal chest wall mechanics, no w/r/r HEART: no murmurs, S1 normal and S2 normal ABDOMEN: abdomen soft, non-tender, normo-active bowel sounds, no masses, no rebound or guarding. SKIN: no rashes, petechiae, orbruising UPPER EXTREMITIES: upper extremities are grossly normal. FROM, nml pulses b/l. LOWER EXTREMITIES: No pitting edema. FROM, nml pulses b/l. Left foot in an orthopedic shoe. NEURO EXAM: Normal sensorium, cranial nerves II-XII grossly intact, normal speech, no facial droop,nogross weakness of arms, no gross weakness of legs. Gross sensation intact. No ataxia. Vital Signs: reviewed and remarkable Differential Diagnosis: dehydration, stroke, anemia, hypoglycemia, hyponatremia, hypernatremia, urinary tract infection, pneumonia, bronchitis, sepsis, gastroenteritis, additional abdominal pathology, metabolic abnormalities, as well as others were considered MEDICAL DECISION MAKING: This is a 69 yo male who presents to the ER with concern for worsening weakness, fatigue, and decreased intake. He was afebrile and VS stable. Labs drawn and sent, IV established, EKG and CXR performed and interpreted at bedside, and patient placed on telemetry. He was given IVF as he did appear clinically dehydrated. After review of EMR and prior hx, I was able to speak with his after she arrived. Mild leukocytosis noted of unclear significant, mild anemia also noted. LFt's abnormal however improved compared to prior. Lactic acid noted to be elevated however was improved upon repeat. Nasal swab sent and was negative for viral illness. CXR with worsening pleural effusion compared to prior however patient denied SOB and no hypoxia noted. I discussed all results with the patient and his . Case discussed with the hospitalist team, for additional evaluation and mgmt. ER Treatment Provided: See below 1402: Discussed with who is now at bedside. She states that since his discharge from rehab 10 days ago, he has had a progressively worsening appetite with increasing fatigue and weakness. She states following his stay in rehab they had discontinued his Lasix and spironolactone. They had also added rifaximin mean and told him he could use the lactulose as needed. She does confirm that he has not had a bowel movement in 2 days and she did tried to get some electrolytes into him but he could not eat anything yesterday has not had an appetite. She states he has not been overly confused or complained of any pain. She states he intermittently complains of nausea. No falls or injuries. She states there have been a physical therapist coming to the house, although he has a difficult time having enough energy to participate. She states he has been following with [facility] regarding his liver failure for more than 10 years. She states originally liver failure was secondary to tumor removal. He does not consume alcohol. Diagnostics Interpreted By Me: -ECG: Normal sinus at 89, rightward axis, prolonged QT, nonspecific ST/T wave changes, no change compared to January 2025 -Cardiac Monitoring: An order was placed for continuous cardiac monitoring. The monitor shows a rate of 88 with normal sinus rhythm. -Laboratory studies: As stated above and show below. -Imaging studies: X-ray Chest: A single view study of the chest was reviewed and was negative for cardiomegaly, focal infiltrate, pulmonary edema, or wide mediastinum. Left effusion noted. Triage Nursing Note Reviewed Prior/Outside Records Reviewed Past Med/Surg History Problem List (Updated 02/23/25 @ 16:27 by Maria Antonia Nielsen DO) Pleural effusion, left (Acute) Decreased oral intake (Acute) Dehydration (Acute) Generalized weakness (Acute) Diabetic neuropathy (Chronic) Callus of toe (Acute) Generalized weakness Compression fracture of L1 lumbar vertebra T wave inversion in EKG QT prolongation Superior mesenteric vein thrombosis Transaminitis Hyponatremia Monocytosis Cirrhosis of liver Lactic acid blood increased Respiratory alkalosis CAP (community acquired pneumonia) Acute metabolic encephalopathy Elevated lactic acid level (Acute) Generalized weakness (Acute) Acute confusion (Acute) CHI (closed head injury) (Acute) Fall (Acute) Hypotension (Acute) Symptomatic bradycardia (Acute) QT prolongation (Acute) Fall Pain of left calf Leg pain Hypothyroidism Prolonged bleeding time Calf swelling Cirrhosis of liver End stage liver disease on the transplant list Controlled type 2 diabetes mellitus, with long-term current use of insulin (Chronic) History of esophageal varices Hypomagnesemia Chronic cough Abdominal ascites (Acute) Acute dyspnea (Acute) Decompensated cirrhosis Enterocolitis Lactic acidemia (Acute) Vitamin D deficiency Anticoagulant long-term use (Acute) Insomnia Weight loss Superior labrum [id number] (SLAP) tear of left shoulder (Chronic) Hypoglycemia Tremor Hyperbilirubinemia Awaiting liver transplant Anxiety and depression (Chronic) Mild renal insufficiency (Chronic) Hyperlipidemia (Chronic) Medical History History of MRSA infection (2021) History of recent hospitalization (07/2024) for infection pt is not sure details. hospitalized at [facility]. infection resolved per pt. had f/u with pcp since d/c on jul 17 2024 and sent to hospital for ascites (had paracentesis), kept as inpatient. Pt is not sure date of discharge. Coughing ongoing occ productive cough since apr 2024/ evaluated w/pcp/unknown etiology/much improved per pt. at current unproductive cough on occ. Gastritis none that pt aware of Tremor denies current or hx Anxiety and depression History of hyperlipidemia History of hypertension History of GI bleed History of esophageal varices hx banding History of COVID-19 approx 2021 - no hx hospitalization. History of colitis History of anemia Diarrhea ongoing problem CKD (chronic kidney disease), stage III Portal hypertension GERD (gastroesophageal reflux disease) Peripheral neuropathy History of biliary stent insertion (2013) pt reports he still has this stent. Patient on waiting list for liver transplant Spontaneous bacterial peritonitis hx 05/2024 - presumed 2nd strep pneumo, resolved to pt knowledge. Bacteremia due to Streptococcus pneumoniae hx, 05/2024 [place] inpatient. resolved. Superior mesenteric vein thrombosis not that pt aware of current or hx Portal vein thrombosis pt reports they want to keep my blood pressure on the lower side due to the clot. BERNAL (nonalcoholic steatohepatitis) History of ascites last occurence /drained July 2024 Post traumatic stress disorder Surgical History History of abdominal paracentesis multiple, most recent july 2024. History of surgery of liver Hepatic lobectomy (benign tumor) S/P debridement ABDOMINAL WOUND 2017 History of herniorrhaphy WITH MESH-2017 History of ERCP hx 08/2021 @ [facility], maybe had one more recently with infection pt is not sure. Hx of hand surgery RT HAND/ARM SURGERY (METAL PLATE D/T FX) Hx of vasectomy History of esophagogastroduodenoscopy (EGD) History of colonoscopy History of cholecystectomy History of tooth extraction several Family History Mother Diabetes Cancer Grandmother No problems noted. Grandmother (Maternal) Diabetes Family/Other Heart disease Hypertension Father Lung cancer Other No family history of adverse response to anesthesia Denies family history of Ovarian cancer Prostate cancer Myocardial infarction Breast cancer Colorectal cancer Social History (Updated 02/16/25 @ 13:20 by Nusrat Cantu RN) Smoking Status: Former smoker Tobacco Type: Cigarettes Age Started Using Tobacco: 17; Age Quit Using Tobacco: 31; packs per day: 1.5; Second Hand Exposure: No; Do You Dip or Chew Tobacco: No; Hx Alcohol Use: No Hx Substance Use: No Preferred Language: Arabic Communication Ability: Effective Visual Impairment: No Limitations Hearing Ability: Normal Public Records Researcher Required: No Beliefs That Will Affect Care: None marital status: Current Living Situation: Spouse Current Living Situation Comment: and dog current occupational status: retired 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 [employer] How many Children do You have: 3 Feels Safe at Home: Yes Childhood Exposure to Second-Hand Smoke: Yes Diet: regular caffeine: Yes during the past year weight has: remained stable Dental Care, Regularly: Yes Physical Activity Frequency: 3-4 Times per Week Seatbelt Use: never Sunscreen Use: No Do you think of yourself as: straight/heterosexual Sexual Activity: has been sexually active, but not for at least 12 months Gender Identity: Male Assistive Devices: Cane and Walker Allergies Allergies Allergy/AdvReac Type Severity Reaction Status Date / Time exenatide [From Byetta] AdvReac Unknown Diarrhea Verified 02/16/25 13:13 macrolides AdvReac Uncoded 02/16/25 13:13 Home Meds Home Medications Medication Instructions Recorded Confirmed cyanocobalamin (vitamin B-12) 1,000 mcg PO QAM 11/25/18 02/23/25 1,000 mcg capsule blood sugar diagnostic (OneTouch 02/10/21 02/12/25 Ultra Blue Test Strip) blood-glucose,automatic washer mechanic,cont 01/03/23 02/12/25 (Dexcom G7 Locker Room Attendant) insulin glargine 100 unit/mL (3 4 unit subcut QAM 01/30/24 02/23/25 mL) subcutaneous pen (Lantus Solostar U-100 Insulin) albuterol sulfate 90 mcg/actuation 2 inh inhalation DAILY PRN Wheezing 07/24/24 02/23/25 aerosol inhaler polyethylene glycol 3350 17 gram 17 g PO BID PRN constpation 07/24/24 02/23/25 oral powder packet (Miralax) sertraline 50 mg tablet 50 mg PO QAM 07/24/24 02/23/25 phytonadione (vitamin K1) 100 mcg 100 mcg PO DAILY 11/24/24 02/23/25 tablet cholecalciferol (vitamin D3) 25 25 mcg PO BID 12/20/24 02/23/25 mcg (1,000 unit) tablet (Vitamin D3) warfarin 2.5 mg tablet 2.5 mg PO DAILY 01/05/25 02/23/25 bupropion HCl 150 mg tablet,12 hr 150 mg PO Q12 01/30/25 02/23/25 sustained-release calcium carbonate 500 mg PO BID 01/30/25 02/23/25 omeprazole 40 mg capsule,delayed 40 mg PO BIDM 01/30/25 02/23/25 release insulin aspart U-100 100 unit/mL 1 sliding scale dose subcut 02/16/25 02/23/25 (3 mL) subcutaneous pen (Novolog USEASDIRECTD FlexPen U-100 Insulin aspart) acetaminophen 325 mg tablet 650 mg PO Q8 02/23/25 02/23/25 rifaximin 550 mg tablet (Xifaxan) 550 mg PO BID 02/23/25 02/23/25 Previous Rx's Medication Instructions Recorded ferrous sulfate 325 mg (65 mg 325 mg PO BID #60 tabs 08/11/18 iron) tablet (iron) simvastatin 20 mg tablet 20 mg PO QAM #90 tabs 06/26/24 levothyroxine 175 mcg tablet 175 mcg PO QAM #90 tabs 10/05/24 pen needle, diabetic 31 gauge x #100 ea 10/12/2407/24" (TechLITE Pen Needle) lorazepam 0.5 mg tablet 0.5 mg PO DAILY PRN anxiety #30 11/30/24 tabs ondansetron 4 mg disintegrating 4 mg translingual Q6 PRN 02/12/25 tablet NAUSEA/VOMITING #60 tabs Results & Data (ED) Vital Signs Vital Signs - 24 hr 02/23/25 11:03 02/23/25 11:28 02/23/25 12:00 Temperature 36.7 C Temperature Source Oral Pulse Rate 68 90 Pulse Rate [Apical] 85 Pulse Rhythm Regular Pulse Rhythm [Apical] Regular Pulse Strength [Apical] Normal Respiratory Rate 14 14 Respiratory Effort / Characteristics Non-Labored Spontaneous Non-Labored Spontaneous Respiratory Depth Normal Normal Respiratory Pattern Regular Regular Blood Pressure 107/71 Blood Pressure [Right Arm] 108/74 Blood Pressure Mean 83 Blood Pressure Mean [Right Arm] 85 Blood Pressure Position Semi-fowlers Blood Pressure Position [Right Arm] Pulse Oximetry 97 97 96 Oxygen Delivery Method Room Air Room Air Room Air Sepsis Recent Fever Within 48 Hours No Sepsis New/Unexplained Change in Mental Status No Sepsis Action Taken by Nursing No Action Required 02/23/25 12:38 02/23/25 14:00 Temperature Temperature Source Pulse Rate 83 Pulse Rate [Apical] 84 Pulse Rhythm Pulse Rhythm [Apical] Regular Pulse Strength [Apical] Normal Respiratory Rate 18 Respiratory Effort / Characteristics Non-Labored Spontaneous Respiratory Depth Normal Respiratory Pattern Regular Blood Pressure Blood Pressure [Right Arm] 110/69 Blood Pressure Mean Blood Pressure Mean [Right Arm] 82 Blood Pressure Position Blood Pressure Position [Right Arm] Semi-fowlers Pulse Oximetry 95 Oxygen Delivery Method Room Air Sepsis Recent Fever Within 48 Hours Sepsis New/Unexplained Change in Mental Status Sepsis Action Taken by Nursing Laboratory Data 02/24/25 05:49 02/24/25 05:49 Lab Results 02/23/25 02/23/25 02/23/25 Range/Units 11:14 11:27 11:36 WBC 13.59 H (4.8-10.8) K/ul RBC 3.92 L (4.70-6.10) M/uL Hgb 13.3 L (14.0-18.0) g/dL Hct 38.4 L (42.0-52.0) % MCV 98.0 (80.0-100.0) fL MCH 33.9 (25.0-34.0) pg MCHC 34.6 (32.0-36.0) g/dL RDW Std Deviation 61.5 H (36.4-46.3) fL RDW Coeff of Debby 17.4 H (11.5-14.5) % Plt Count 306 (130-400) K/uL MPV 10.1 (9.4-12.4) fL Immature Gran % (Auto) 1.5 % Neut % (Auto) 83.7 % Lymph % (Auto) 4.6 % [place] % (Auto) 8.8 % Eos % (Auto) 1.0 % Baso % (Auto) 0.4 % Neut # (Auto) 11.38 H (1.40-6.50) K/uL Lymph # (Auto) 0.63 L (1.20-3.40) K/uL [place] # (Auto) 1.19 H (0.11-0.59) K/uL Eos # (Auto) 0.13 (0.00-0.50) K/uL Baso # (Auto) 0.05 (0.00-0.20) K/uL Immature Gran # (Auto) 0.21 H (0.01-0.20) K/uL PT 41.8 H (9.0-12.0) Seconds INR 4.3 H (0.9-1.1) Sodium 128 L (136-145) mmol/L Potassium 3.4 L (3.5-5.1) mmol/L Chloride 92 L (98-107) mmol/L Carbon Dioxide 29 (21-32) mmol/L Anion Gap 7 (3-11) BUN 16 (6-23) mg/dl Creatinine 0.90 (0.6-1.4) mg/dl Est Cr Clr Drug Dosing 78.9 ml/min eGFR 93.03 BUN/Creatinine Ratio 17.8 (10-20) Glucose 110 H (70-99(Fasting)) mg/dl Lactate 2.3 H* (0.4-2.0) mmol/L Calcium 8.5 L (8.6-10.3) mg/dl Magnesium 1.7 (1.7-2.4) mg/dl Total Bilirubin 4.1 H (0.2-1.0) mg/dl AST 72 H (13-39) U/L ALT 35 (7-52) U/L Alkaline Phosphatase 371 H (34-104) U/L Troponin I High Sens 11.6 (0-20) pg/ml Total Protein 7.6 (6.0-8.3) gm/dl Albumin 2.1 L (3.4-5.0) gm/dl Globulin 5.5 H (2.5-4.0) gm/dl Albumin/Globulin Ratio 0.4 L (0.9-2) TSH 1.623 (0.300-4.500) uIu/ml Adenovirus (PCR) Not Detected (NotDetected) B. pertussis DNA (PCR) Not Detected (NotDetected) B.parapertussis DNA PCR Not Detected (NotDetected) C. pneumoniae DNA (PCR) Not Detected (NotDetected) Coronavirus OC43 (PCR) Not Detected (NotDetected) Coronavirus HKU1 (PCR) Not Detected (NotDetected) Coronavirus 229E (PCR) Not Detected (NotDetected) SARS-CoV-2 (PCR) Not Detected (NotDetected) Coronavirus NL63 (PCR) Not Detected (NotDetected) Human Metapneumovir PCR Not Detected (NotDetected) Influenza Type A (PCR) Not Detected (NotDetected) Influenza Type B (PCR) Not Detected (NotDetected) M. pneumoniae (PCR) Not Detected (NotDetected) Parainfluenza 1 (PCR) Not Detected (NotDetected) Parainfluenza 2 (PCR) Not Detected (NotDetected) Parainfluenza 3 (PCR) Not Detected (NotDetected) Parainfluenza 4 (PCR) Not Detected (NotDetected) RSV (PCR) Not Detected (NotDetected) Entero/Rhino (PCR) Not Detected (NotDetected) 02/23/25 Range/Units 13:39 WBC (4.8-10.8) K/ul RBC (4.70-6.10) M/uL Hgb (14.0-18.0) g/dL Hct (42.0-52.0) % MCV (80.0-100.0) fL MCH (25.0-34.0) pg MCHC (32.0-36.0) g/dL RDW Std Deviation (36.4-46.3) fL RDW Coeff of Debby (11.5-14.5) % Plt Count (130-400) K/uL MPV (9.4-12.4) fL Immature Gran % (Auto) % Neut % (Auto) % Lymph % (Auto) % [place] % (Auto) % Eos % (Auto) % Baso % (Auto) % Neut # (Auto) (1.40-6.50) K/uL Lymph # (Auto) (1.20-3.40) K/uL [place] # (Auto) (0.11-0.59) K/uL Eos # (Auto) (0.00-0.50) K/uL Baso # (Auto) (0.00-0.20) K/uL Immature Gran # (Auto) (0.01-0.20) K/uL PT (9.0-12.0) Seconds INR (0.9-1.1) Sodium (136-145) mmol/L Potassium (3.5-5.1) mmol/L Chloride (98-107) mmol/L Carbon Dioxide (21-32) mmol/L Anion Gap (3-11) BUN (6-23) mg/dl Creatinine (0.6-1.4) mg/dl Est Cr Clr Drug Dosing ml/min eGFR BUN/Creatinine Ratio (10-20) Glucose (70-99(Fasting)) mg/dl Lactate 1.8 (0.4-2.0) mmol/L Calcium (8.6-10.3) mg/dl Magnesium (1.7-2.4) mg/dl Total Bilirubin (0.2-1.0) mg/dl AST (13-39) U/L ALT (7-52) U/L Alkaline Phosphatase (34-104) U/L Troponin I High Sens (0-20) pg/ml Total Protein (6.0-8.3) gm/dl Albumin (3.4-5.0) gm/dl Globulin (2.5-4.0) gm/dl Albumin/Globulin Ratio (0.9-2) TSH (0.300-4.500) uIu/ml Adenovirus (PCR) (NotDetected) B. pertussis DNA (PCR) (NotDetected) B.parapertussis DNA PCR (NotDetected) C. pneumoniae DNA (PCR) (NotDetected) Coronavirus OC43 (PCR) (NotDetected) Coronavirus HKU1 (PCR) (NotDetected) Coronavirus 229E (PCR) (NotDetected) SARS-CoV-2 (PCR) (NotDetected) Coronavirus NL63 (PCR) (NotDetected) Human Metapneumovir PCR (NotDetected) Influenza Type A (PCR) (NotDetected) Influenza Type B (PCR) (NotDetected) M. pneumoniae (PCR) (NotDetected) Parainfluenza 1 (PCR) (NotDetected) Parainfluenza 2 (PCR) (NotDetected) Parainfluenza 3 (PCR) (NotDetected) Parainfluenza 4 (PCR) (NotDetected) RSV (PCR) (NotDetected) Entero/Rhino (PCR) (NotDetected) Administered Medications Bupropion HCl (Bupropion Sr 150 Mg Tabcr) 150 mg PO Q12 YENNI Stop: 01/15/26 20:59 Last Admin: 02/24/25 08:47 Dose: 150 mg Documented By: Admin: 02/23/25 20:01 Dose: 150 mg Documented By: jason Famotidine (Famotidine 20 Mg Tab) 20 mg PO BID YENNI Stop: 03/25/25 20:59 Last Admin: 02/24/25 08:47 Dose: 20 mg Documented By: Admin: 02/23/25 20:03 Dose: 20 mg Documented By: jason Ferrous Sulfate (Ferrous Sulfate 325 Mg Tab) 325 mg PO BID YENNI Stop: 03/25/25 20:59 Last Admin: 02/24/25 08:47 Dose: 325 mg Documented By: Admin: 02/23/25 20:01 Dose: 325 mg Documented By: jason Lactated Ringer's (Lr) 1,000 mls @ 100 mls/hr IV .Q10H [facility] Stop: 02/26/25 17:38 Last Admin: 02/24/25 14:19 Dose: 100 mls/hr Documented By: Infusion: 02/24/25 14:07 Dose: Infused Documented By: Admin: 02/24/25 04:07 Dose: 100 mls/hr Documented By: jason Infusion: 02/24/25 04:07 Dose: Infused Documented By: jason Admin: 02/23/25 18:17 Dose: 100 mls/hr Documented By: ROME Insulin Aspart (Insulin Aspart Per Unit Charge) 0 units SC ACHS [facility] Stop: 03/25/25 17:38 Last Admin: 02/24/25 17:41 Dose: 1 units Documented By: ROME Co-signed By: JIM Admin: 02/24/25 12:33 Dose: 1 units Documented By: ROME Co-signed By: ANNEMARIE Admin: 02/24/25 08:38 Dose: Not Given Documented By: Admin: 02/23/25 19:44 Dose: Not Given Documented By: jason Co-signed By: ROBE Admin: 02/23/25 18:43 Dose: Not Given Documented By: ROME Insulin Glargine (Lantus Per Unit Charge) 2 units SQ QAM YENNI Stop: 03/26/25 08:59 Last Admin: 02/24/25 08:42 Dose: 2 units Documented By: ROME Co-signed By: ANNEMARIE Levothyroxine Sodium (Levothyroxine Sodium 175 Mcg Tablet) 175 mcg PO QAM [facility] Stop: 03/26/25 08:59 Last Admin: 02/24/25 08:47 Dose: 175 mcg Documented By: ROME Melatonin (Melatonin 3 Mg Tab) 3 mg PO HS PRN PRN Reason: Insomnia Stop: 03/25/25 17:38 Last Admin: 02/23/25 20:01 Dose: 3 mg Documented By: jason Miscellaneous (Order Awaiting Action [Phytonadione (Vitamin K1) 100 Mcg Tablet]) 1 each N/A QS [facility] Stop: 03/26/25 00:00 Last Admin: 02/24/25 15:23 Dose: Not Given Documented By: Admin: 02/24/25 08:36 Dose: Not Given Documented By: Admin: 02/23/25 23:59 Dose: Not Given Documented By: jason Ondansetron HCl (Ondansetron Inj 2 Mg/Ml 2 Ml Vial) 4 mg IV Q6H PRN PRN Reason: Nausea Stop: 03/25/25 17:38 Last Admin: 02/24/25 08:47 Dose: 4 mg Documented By: Admin: 02/23/25 20:01 Dose: 4 mg Documented By: jason Pantoprazole Sodium (Pantoprazole 40 Mg Tab) 40 mg PO BID [facility] Stop: 03/25/25 20:59 Last Admin: 02/24/25 08:47 Dose: 40 mg Documented By: Admin: 02/23/25 20:01 Dose: 40 mg Documented By: jason Polyethylene Glycol (Polyethylene (Miralax) 17 Gm Pack) 17 gm PO DAILY [facility] Stop: 03/26/25 08:59 Last Admin: 02/24/25 08:47 Dose: 17 gm Documented By: ROME Rifaximin (Rifaximin 550 Mg Tablet) 550 mg PO BID [facility] Stop: 03/25/25 20:59 Last Admin: 02/24/25 08:47 Dose: 550 mg Documented By: Admin: 02/23/25 20:01 Dose: 550 mg Documented By: jason Simvastatin (Simvastatin 20 Mg Tab) 20 mg PO QAM [facility] Stop: 03/26/25 08:59 Last Admin: 02/24/25 08:47 Dose: 20 mg Documented By: AA Discontinued Medications Sodium Chloride (Nss) 1,000 mls @ 999 mls/hr IV .Q1H1M YENNI Stop: 02/23/25 12:30 Last Infusion: 02/23/25 13:14 Dose: Infused Documented By: sara Admin: 02/23/25 11:29 Dose: 999 mls/hr Documented By: sara Magnesium Sulfate/Dextrose (Magnesium Sulfate / D5w) 1 gm in 100 mls @ 100 mls/hr IV NOW STA Stop: 02/23/25 13:04 Last Infusion: 02/23/25 13:29 Dose: Infused Documented By: sara Admin: 02/23/25 12:19 Dose: 100 mls/hr Documented By: sara Sodium Chloride (Nss) 1,000 mls @ 999 mls/hr IV .Q1H1M ONE Stop: 02/23/25 14:54 Last Infusion: 02/23/25 15:50 Dose: Infused Documented By: sara Admin: 02/23/25 14:11 Dose: 999 mls/hr Documented By: sara Potassium Chloride (Potassium Chloride Crtab 20 Meq Tabcr) 40 meq PO NOW STA Stop: 02/23/25 12:06 Last Admin: 02/23/25 12:19 Dose: 40 meq Documented By: sara Imaging Data Radiologist's Impression: Chest X-Ray 02/23/25 11:24 XR chest 1V portable CLINICAL HISTORY: Weakness. COMPARISON STUDY: Chest radiograph and chest CT January 30, 2025. FINDINGS: There is no pneumothorax. A moderate to large left pleural effusion has increased in size since prior chest CT. There is associated left basilar opacity. There is no evidence for pulmonary edema. IMPRESSION: Increase in size of a moderate to large left pleural effusion with associated left basilar opacity. ACT 112: Negative or not required by law. Electronically signed by: Jalil Abraham M.D. 02/23/2025 12:00 PM Discharge Plan Visit Data Chief Complaint: Weakness Stated Complaint: WEAKNESS ED Provider: Maria Antonia Nielsen Discharge Problem: Generalized weakness, Dehydration, Decreased oral intake, Pleural effusion, left Patient Disposition: Admitted As Inpatient Condition: Fair Discharge Instructions Interventions: ED Discharge Assessment Last Done: 02/23/25 17:09
[2025-02-23 11:48] LABS: Hematocrit (blood only) 38.4 % (42.0-52.0); Hemoglobin 13.3 g/dL (14.0-18.0); Immature Granulocytes # (auto) 0.21 K/uL (0.01-0.20); Immature Granulocytes % (auto) 1.5 %; Mean Corpuscular Hemoglobin 33.9 pg (25.0-34.0); Mean Corpuscular Volume 98.0 fL (80.0-100.0); Platelet Count 306 K/uL (130-400); RDW Standard Deviation 61.5 fL (36.4-46.3); Red Blood Count 3.92 M/uL (4.70-6.10); White Blood Count 13.59 K/ul (4.8-10.8)
--- NOTE | 2025-02-23 12:02 | XRay Report ---
XR chest 1V portable CLINICAL HISTORY: Weakness. COMPARISON STUDY: Chest radiograph and chest CT January 30, 2025. FINDINGS: There is no pneumothorax. A moderate to large left pleural effusion has increased in size s aaliyah prior chest CT. There is associated left basilar opacity. There is no evidence for pulmonary adam ma. IMPRESSION: Increase in size of a moderate to large left pleural effusion with associated left basil ar opacity. ACT 112: Negative or not required by law. Electronically signed by: Jalil Abraham M.D. 02/23/2025 12:00 PM
[2025-02-23 12:04] LABS: Alanine Aminotransferase 35.0 U/L (7-52); Albumin Globulin Ratio 0.4 (0.9-2); Albumin Level 2.1 gm/dl (3.4-5.0); Alkaline Phosphatase 371.0 U/L (34-104); Anion Gap 7.0 (3-11); Bilirubin,Total 4.1 mg/dl (0.2-1.0); Blood Urea Nitrogen 16.0 mg/dl (6-23); Calcium 8.5 mg/dl (8.6-10.3); Carbon Dioxide 29.0 mmol/L (21-32); Chloride 92.0 mmol/L (98-107); Creatinine Clr Calc Pharmacy 78.9 ml/min; Globulin 5.5 gm/dl (2.5-4.0); Glucose 110.0 mg/dl (70-99(Fasting)); Magnesium 1.7 mg/dl (1.7-2.4); Potassium 3.4 mmol/L (3.5-5.1); Sodium 128.0 mmol/L (136-145); Total Protein 7.6 gm/dl (6.0-8.3)
[2025-02-23] MEDS: MAGNESIUM SULFATE / D5W 1 GM/100 ML BAG IV STA (12:19)
[2025-02-23] MEDS: POTASSIUM CHLORIDE CRTAB 20 MEQ TABCR PO STA (12:19)
[2025-02-23 12:20] LABS: Thyroid Stimulating Hormone 1.623 uIu/ml (0.300-4.500)
[2025-02-23 12:21] LABS: INR 4.3 (0.9-1.1); Prothrombin Time 41.8 Seconds (9.0-12.0)
[2025-02-23 12:27] LABS: Chlamydia pneumoniae PCR Not Detected (NotDetected); Coronavirus 229E PCR Not Detected (NotDetected); Coronavirus CoV-2 (COVID19)PCR Not Detected (NotDetected); Coronavirus HKU1 PCR Not Detected (NotDetected); Coronavirus NL63 PCR Not Detected (NotDetected); Coronavirus OC43PCR Not Detected (NotDetected); Human Metapneumovirus PCR Not Detected (NotDetected); Parainfluenza Virus 1 PCR Not Detected (NotDetected); Parainfluenza Virus 2 PCR Not Detected (NotDetected); Parainfluenza Virus 3 PCR Not Detected (NotDetected); Parainfluenza Virus 4 PCR Not Detected (NotDetected); Respiratory Syncytial VirusPCR Not Detected (NotDetected); Rhinovirus/Enterovirus PCR Not Detected (NotDetected)
[2025-02-23] MEDS: SODIUM CHLORIDE 0.9% 1,000 ML IV ONE (14:11)
--- NOTE | 2025-02-23 15:25 | History & Physical Report ---
Date of Service February 23, 2025 Assessment & Plan (1) Generalized weakness: (2) GERD (gastroesophageal reflux disease): (3) Nausea & vomiting: (4) Decreased oral intake: (5) Dehydration: (6) Hyponatremia: (7) Hypothyroidism: (8) End stage liver disease: (9) Controlled type 2 diabetes mellitus, with long-term current use of insulin: (10) Anticoagulant long-term use: (11) Superior mesenteric vein thrombosis: (12) Anxiety and depression: Plan Pt is a 69 yo male with a past medical hx of ESLD with hx of portal vein thrombosis now on warfarin chronically, hypothyroidism, GERD, T2DM on insulin, and hx esophageal varices admitted for weakness. Weakness // Physical deconditioning (uses walker at baseline) Decreased PO intake - Suspect progressively worsening weakness may be a combination of baseline physical deconditioning as has been seen in previous admissions plus nausea leading to decreased PO intake and > 2 episodes of non bloody emesis daily. - Weight loss of 3 kg compared to 02/02 - Patient encouraged to eat whatever appeared appetizing to him for now and will add mIVF until intake improves. - Once weakness and PO intake improves, may consider PT/OT evaluation Nausea / Vomiting GERD - Daily nausea and > 2 episodes of non bloody emesis leading to decreased PO intake - Given emesis happens more often in the morning when waking up and a few mi nutes after laying down, could have a component of acid reflux contributing to nausea - No bm over the last 2 days, which may be due to baseline constipation versus related to poor PO intake; may be contributing to current N/V - Will order Zofran prn for nausea with Compazine to be used for breakthrough nausea - Also added Protonix 40 mg PO and Pepcid 20 mg - Miralax daily Hyponatremia - Labs today showing Na of 128 (was 136 on 02/12); no sxs - Likely related to poor PO intake and only drinking water daily - s/p NSS 1L bolus x2 in ED; continue with LR at maintenance rate after - Encourage PO intake as mentioned above and monitor am labs Portal vein thrombosis / Chronic Warfarin use (INR goal 2-3) - Currently on Warfarin and Vitamin K - Follows Anticoagulation Clinic - INR today is supratherapeutic at 4.3 which may be related to poor PO intake - Will hold Warfarin today and recheck INR with am labs ESLD - Follows hepatology as an outpatient - MELD score of 22 - On transplant list, but told he is currently too frail and would need to get stronger DM-II - Continue Lantus and SSI Hypothyroidism - Continue Levothyroxine Anxiety - Will hold home BZD due to current weakness and dizziness/imbalance Dispo: Med/Surg Fluids: LR @ 100 ml/hr Diet: Regular; ADAT Code Status: DNI History of Present Illness Chief Complaint: Weakness Primary Care Provider: HATTIE Fleming Pt is a 69 yo male with a past medical hx of ESLD with hx of portal vein thrombosis now on warfarin chronically, hypothyroidism, CKD stage 3, GERD, T2DM on insulin, and hx esophageal varices who presents today for progressively worsening weakness. Patient's also at bedside and helping with history. Patient has been admitted around earlier this year due to fall experienced at home that seemed to be mechanical at the time with similar episodes around December and January, was discharged to [facility] due to noted weakness, then when he returned home around 2 weeks ago started to experience progressively worsening weakness, fatigue, imbalance, and dizziness upon standing (though has had orthostatism over the last 6+ weeks) with symptoms being the worst over the last 2 days. Around this same time, he has had frequent nausea all day with at least 2 episodes of non bloody emesis in the morning when waking up and a few minutes after laying down at night, which lead to him using Zofran prior to going to bed to try and avoid waking up due to nausea. Due to this nausea, his PO intake has been very low (barely eats anything during the day) over the last 10 days but states he drinks around 60 oz of water daily. Denies having any associated fevers, chills, syncope, chest pain, SOB/ESTES, palpitations, abdominal pain, diarrhea/bm changes or other systemic sxs. ED Course: Given NSS 1L bolus x2, Given KCl 40 mEq PO, and Magnesium IV 1gm. Labs/Imaging: CBC with leukocytosis of 13.59 w/ neutrophilic predominance, hemoglobin 13.3 and platelets of 306. PT of 41.8, INR of 4.3 (was 1.8 on 02/12/25). CMP with hyponatremia of 128, hypokalemia of 3.4, Bicarb of 29, Creatinine of 0.90, Bsg of 110. Lactate of 2.8 that normalized to 1.8 after IVF administration. T.Bili of 4.1, AST of 72, ALT wnl at 35, and Alk phos of 371. Albumin of 2.1. TSH of 1.623. Troponin of 11.6. Biofire negative. CXR with increase in size of moderate to large left pleural effusion w/ associated left basilar opacity. Medical History: [Reviewed] Medications: [Reviewed] Surgical History: [Reviewed] Family history: [Reviewed] Allergies: [Reviewed] Social History: [Reviewed] Code Status: DNI Allergies Allergy/AdvReac Type Severity Reaction Status Date / Time exenatide [From [place]] AdvReac Unknown Diarrhea Verified 02/16/25 13:13 macrolides AdvReac Uncoded 02/16/25 13:13 Home Medications Medication Instructions Recorded Confirmed Type ferrous sulfate 325 mg (65 mg 325 mg PO BID #60 tabs 08/11/18 02/23/25 Rx iron) tablet (iron) cyanocobalamin (vitamin B-12) 1,000 mcg PO QAM 11/25/18 02/23/25 History 1,000 mcg capsule blood sugar diagnostic (OneTouch 02/10/21 02/12/25 History Ultra Blue Test Strip) blood-glucose,lighting technician,cont 01/03/23 02/12/25 History (Dexcom G7 [employer] Policy Specialist) insulin glargine 100 unit/mL (3 4 unit subcut QAM 01/30/24 02/23/25 History mL) subcutaneous pen (Lantus Solostar U-100 Insulin) simvastatin 20 mg tablet 20 mg PO QAM #90 tabs 06/26/24 02/23/25 Rx albuterol sulfate 90 mcg/actuation 2 inh inhalation DAILY PRN Wheezing 07/24/24 02/23/25 History aerosol inhaler polyethylene glycol 3350 17 gram 17 g PO BID PRN constpation 07/24/24 02/23/25 History oral powder packet (Miralax) sertraline 50 mg tablet 50 mg PO QAM 07/24/24 02/23/25 History levothyroxine 175 mcg tablet 175 mcg PO QAM #90 tabs 10/05/24 02/23/25 Rx pen needle, diabetic 31 gauge x #100 ea 10/12/24 02/12/25 Rx 5/16" (TechLITE Pen Needle) phytonadione (vitamin K1) 100 mcg 100 mcg PO DAILY 11/24/24 02/23/25 History tablet lorazepam 0.5 mg tablet 0.5 mg PO DAILY PRN anxiety #30 11/30/24 02/23/25 Rx tabs cholecalciferol (vitamin D3) 25 25 mcg PO BID 12/20/24 02/23/25 History mcg (1,000 unit) tablet (Vitamin D3) warfarin 2.5 mg tablet 2.5 mg PO DAILY 01/05/25 02/23/25 History bupropion HCl 150 mg tablet,12 hr 150 mg PO Q12 01/30/25 02/23/25 History sustained-release calcium carbonate 500 mg PO BID 01/30/25 02/23/25 History omeprazole 40 mg capsule,delayed 40 mg PO BIDM 01/30/25 02/23/25 History release ondansetron 4 mg disintegrating 4 mg translingual Q6 PRN 02/12/25 02/23/25 Rx tablet NAUSEA/VOMITING #60 tabs insulin aspart U-100 100 unit/mL 1 sliding scale dose subcut 02/16/25 02/23/25 History (3 mL) subcutaneous pen (Novolog USEASDIRECTD FlexPen U-100 Insulin aspart) acetaminophen 325 mg tablet 650 mg PO Q8 02/23/25 02/23/25 History rifaximin 550 mg tablet (Xifaxan) 550 mg PO BID 02/23/25 02/23/25 History Past Med/Surg History Problem List (Updated 02/23/25 @ 16:27 by Maria Antonia Nielsen, DO) Pleural effusion, left (Acute) Decreased oral intake (Acute) Dehydration (Acute) Generalized weakness (Acute) Diabetic neuropathy (Chronic) Callus of toe (Acute) Generalized weakness Compression fracture of L1 lumbar vertebra T wave inversion in EKG QT prolongation Superior mesenteric vein thrombosis Transaminitis Hyponatremia Monocytosis Cirrhosis of liver Lactic acid blood increased Respiratory alkalosis CAP (community acquired pneumonia) Acute metabolic encephalopathy Elevated lactic acid level (Acute) Generalized weakness (Acute) Acute confusion (Acute) CHI (closed head injury) (Acute) Fall (Acute) Hypotension (Acute) Symptomatic bradycardia (Acute) QT prolongation (Acute) Fall Pain of left calf Leg pain Hypothyroidism Prolonged bleeding time Calf swelling Cirrhosis of liver End stage liver disease on the transplant list Controlled type 2 diabetes mellitus, with long-term current use of insulin (Chronic) History of esophageal varices Hypomagnesemia Chronic cough Abdominal ascites (Acute) Acute dyspnea (Acute) Decompensated cirrhosis Enterocolitis Lactic acidemia (Acute) Vitamin D deficiency Anticoagulant long-term use (Acute) Insomnia Weight loss Superior labrum [id number] (SLAP) tear of left shoulder (Chronic) Hypoglycemia Tremor Hyperbilirubinemia Awaiting liver transplant Anxiety and depression (Chronic) Mild renal insufficiency (Chronic) Hyperlipidemia (Chronic) Medical History History of MRSA infection (2021) History of recent hospitalization (07/2024) for infection pt is not sure details. hospitalized at [facility]. infection resolved per pt. had f/u with pcp since d/c on jul 17 2024 and sent to hospital for ascites (had paracentesis), kept as inpatient. Pt is not sure date of discharge. Coughing ongoing occ productive cough since apr 2024/ evaluated w/pcp/unknown etiology/much improved per pt. at current unproductive cough on occ. Gastritis none that pt aware of Tremor denies current or hx Anxiety and depression History of hyperlipidemia History of hypertension History of GI bleed History of esophageal varices hx banding History of COVID-19 approx 2021 - no hx hospitalization. History of colitis History of anemia Diarrhea ongoing problem CKD (chronic kidney disease), stage III Portal hypertension GERD (gastroesophageal reflux disease) Peripheral neuropathy History of biliary stent insertion (2013) pt reports he still has this stent. Patient on waiting list for liver transplant Spontaneous bacterial peritonitis hx 05/2024 - presumed 2nd strep pneumo, resolved to pt knowledge. Bacteremia due to Streptococcus pneumoniae hx, 05/2024 hi inpatient. resolved. Superior mesenteric vein thrombosis not that pt aware of current or hx Portal vein thrombosis pt reports they want to keep my blood pressure on the lower side due to the clot. BERNAL (nonalcoholic steatohepatitis) History of ascites last occurence /drained July 2024 Post traumatic stress disorder Surgical History History of abdominal paracentesis multiple, most recent july 2024. History of surgery of liver Hepatic lobectomy (benign tumor) S/P debridement ABDOMINAL WOUND 2017 History of herniorrhaphy WITH MESH-2018 History of ERCP hx 08/2021 @ [facility], maybe had one more recently with infection pt is not sure. Hx of hand surgery RT HAND/ARM SURGERY (METAL PLATE D/T FX) Hx of vasectomy History of esophagogastroduodenoscopy (EGD) History of colonoscopy History of cholecystectomy History of tooth extraction several Family History Mother Diabetes Cancer Grandmother No problems noted. Grandmother (Maternal) Diabetes Family/Other Heart disease Hypertension Father Lung cancer Other No family history of adverse response to anesthesia Denies family history of Ovarian cancer Prostate cancer Myocardial infarction Breast cancer Colorectal cancer Social History (Updated 02/16/25 @ 13:20 by Nusrat Cantu RN) Smoking Status: Former smoker Tobacco Type: Cigarettes and Smokeless Tobacco (Dip or Chew) Age Started Using Tobacco: 17; Age Quit Using Tobacco: 31; packs per day: 1.5; Second Hand Exposure: No; Do You Dip or Chew Tobacco: No; Hx Alcohol Use: No Hx Substance Use: No Preferred Language: Slovak Communication Ability: Impaired Visual Impairment: No Limitations Hearing Ability: Normal Tank Hoop Bender Required: No Beliefs That Will Affect Care: None marital status: Current Living Situation: Spouse Current Living Situation Comment: and dog current occupational status: retired 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 [employer] How many Children do You have: 3 Feels Safe at Home: Yes Childhood Exposure to Second-Hand Smoke: Yes Diet: regular caffeine: Yes during the past year weight has: remained stable Dental Care, Regularly: Yes Physical Activity Frequency: 3-4 Times per Week Seatbelt Use: never Sunscreen Use: No Do you think of yourself as: straight/heterosexual Sexual Activity: has been sexually active, but not for at least 12 months Gender Identity: Male Assistive Devices: Bedside Commode, Denture - Upper, Denture - Lower and Walker Review of Systems Review of Systems: As per HPI Physical Exam Physical Exam: GENERAL: AAOx3, afebrile, tired appearing but non toxic, NAD HEAD: AT, NC CHEST: Symmetric chest expansions with respirations CARDIO: RRR, no r/m/g GI: moderate distension, non tender EXTREMITIES: no swelling or calf tenderness in b/l LE Results & Data Results & Data Vital Signs (Past 12 Hours) Vital Signs Temp Pulse Pulse Resp BP BP Pulse Ox 02/23/25 14:00 84 18 110/69 95 02/23/25 12:38 83 02/23/25 12:00 85 14 108/74 96 02/23/25 11:28 90 97 02/23/25 11:03 36.7 C 68 14 107/71 97 O2 Del Method 02/23/25 14:00 Room Air 02/23/25 12:38 02/23/25 12:00 Room Air 02/23/25 11:28 Room Air 02/23/25 11:03 Room Air Supervising Physician Co-Signing Physician Notes I personally examined the patient and verified all trivedi points of history and exam, discussed case, and agree with decision making with Dr Justin butt. Poor p.o. intake for food. Still trying to stay hydrated. Has been out of rehab for a few weeks and getting weaker. Saw his transplant team who notes he is moving higher on the list as regards to the severity of his liver disease, but is now weak and frail enough that he is not certain that he would be a surgical candidate due to frailty. Vitals noted, in general he is awake and alert pleasant no distress. HEENT normocephalic atraumatic mucous membranes moist. Breathing unlabored no accessory muscle use good effort. Abdomen soft mild distention nontender nauseaseems to be the main trigger for his poor p.o. intakeindigestion/upper GI mucosal disease certainly would fit, especially given that a lot of the nausea seems positionalaggressive acid suppression and antiemetics as tolerated. Constipation may also be playing somewhat of a rolealthough does not seem to be as profound as it used to be. Gentle bowel regimen and follow protein calorie malnutritionacutely seems to be severe given his weakness and the fact that he looks more muscle wasting and emaciatednutrition consult, ongoing coaching on adequate nutritionright now probably will be more important to target a calorie goals and necessarily quality. DeconditioningPT/OT eval and treat end-stage liver disease/cirrhosistransplant candidatebut right now frail enough that he has been told that they may not be able to proceed with surgery even if he had a match and was at the top of the list. Seems that we need to do everything we can to help him with the malnutrition and deconditioning otherwise as above Resident Activity Tracking Resident Involvement: Resident Care Provided Care Provided: [facility] Medicine (2) GERD (gastroesophageal reflux disease) Esophagitis presence: without esophagitis Qualified Code(s): K21.9 - Gastro- esophageal reflux disease without esophagitis (3) Nausea & vomiting Vomiting type: unspecified Qualified Code(s): R11.2 - Nausea with vomiting, unspecified (7) Hypothyroidism Hypothyroidism type: unspecified Qualified Code(s): E03.9 - Hypothyroidism, unspecified
--- NOTE | 2025-02-23 17:37 | Billing Data ---
Date of Service February 23, 2025 Coding Level of Care Code 13402 INT INP/OBS CARE
[2025-02-23] MEDS ORDERED: GLUCAGON FOR INJ 1 MG VIAL SQ PRN (17:39)
[2025-02-23] MEDS ORDERED: DEXTROSE 50% 50 ML SYRINGE IV PRN (17:39)
[2025-02-23] MEDS ORDERED: GLUCOSE 10 TAB/TUBE PO PRN (17:39)
[2025-02-23] MEDS ORDERED: GLUCOSE 40% GEL 15 GM TUBE PO PRN (17:39)
[2025-02-23] MEDS ORDERED: CARBOHYDRATES FOR HYPOGLYCEMIA PO PRN (17:39)
[2025-02-23] MEDS: LACTATED RINGER'S 1,000 ML IV SCH (18:17)
[2025-02-23] MEDS: INSULIN ASPART PER UNIT CHARGE SC SCH (18:43)
[2025-02-23] MEDS: MELATONIN 3 MG TAB PO PRN (20:01)
[2025-02-23] MEDS: ONDANSETRON INJ 2 MG/ML 2 ML VIAL IV PRN (20:01)
[2025-02-23] MEDS: FERROUS SULFATE 325 MG TAB PO SCH (20:01)
[2025-02-23] MEDS: FAMOTIDINE 20 MG TAB PO SCH (20:03)
[2025-02-24 06:11] LABS: Hematocrit (blood only) 32.2 % (42.0-52.0); Hemoglobin 11.4 g/dL (14.0-18.0); Immature Granulocytes # (auto) 0.22 K/uL (0.01-0.20); Immature Granulocytes % (auto) 1.7 %; Mean Corpuscular Hemoglobin 34.5 pg (25.0-34.0); Mean Corpuscular Volume 97.6 fL (80.0-100.0); Platelet Count 262 K/uL (130-400); RDW Standard Deviation 62.1 fL (36.4-46.3); Red Blood Count 3.30 M/uL (4.70-6.10); White Blood Count 12.84 K/ul (4.8-10.8)
[2025-02-24 06:30] LABS: Alanine Aminotransferase 26.0 U/L (7-52); Albumin Globulin Ratio 0.4 (0.9-2); Albumin Level 1.8 gm/dl (3.4-5.0); Alkaline Phosphatase 289.0 U/L (34-104); Anion Gap 5.0 (3-11); Bilirubin,Total 3.5 mg/dl (0.2-1.0); Blood Urea Nitrogen 15.0 mg/dl (6-23); Calcium 7.9 mg/dl (8.6-10.3); Carbon Dioxide 28.0 mmol/L (21-32); Chloride 98.0 mmol/L (98-107); Creatinine Clr Calc Pharmacy 82.6 ml/min; Globulin 4.4 gm/dl (2.5-4.0); Glucose 81.0 mg/dl (70-99(Fasting)); Magnesium 1.7 mg/dl (1.7-2.4); Potassium 3.9 mmol/L (3.5-5.1); Sodium 131.0 mmol/L (136-145); Total Protein 6.2 gm/dl (6.0-8.3)
[2025-02-24 06:52] LABS: INR 3.3 (0.9-1.1); Prothrombin Time 32.4 Seconds (9.0-12.0)
[2025-02-24] MEDS: LANTUS PER UNIT CHARGE SQ SCH (08:42)
[2025-02-24] MEDS: LEVOTHYROXINE SODIUM 175 MCG TABLET PO SCH (08:47)
[2025-02-24] MEDS: SIMVASTATIN 20 MG TAB PO SCH (08:47)
[2025-02-24] MEDS: POLYETHYLENE (MIRALAX) 17 GM PACK PO SCH (08:47)
--- NOTE | 2025-02-24 15:34 | Hospitalist Progress Note ---
Date of Service February 24, 2025 Assessment & Plan (1) Generalized weakness: (2) GERD (gastroesophageal reflux disease): (3) Nausea & vomiting: (4) Decreased oral intake: (5) Dehydration: (6) Hyponatremia: (7) Hypothyroidism: (8) End stage liver disease: (9) Controlled type 2 diabetes mellitus, with long-term current use of insulin: (10) Anticoagulant long-term use: (11) Superior mesenteric vein thrombosis: (12) Anxiety and depression: Plan Pt is a 69 yo male with a past medical hx of ESLD with hx of portal vein thrombosis now on warfarin chronically, hypothyroidism, GERD, T2DM on insulin, and hx esophageal varices admitted for weakness. Weakness // Physical deconditioning (uses walker at baseline) Decreased PO intake - Suspect progressively worsening weakness may be a combination of baseline physical deconditioning as has been seen in previous admissions, plus nausea leading to decreased PO intake and > 2 episodes of non bloody emesis daily. Likely some component of food aversion, given frequent nausea and desire to avoid provoking sx. - Weight loss of 3 kg compared to 02/02 - Patient encouraged to eat whatever appeared appetizing to him for now and will add mIVF until intake improves. Had informal nutrional counseling w/ patient today, emphasizing need to try as much food as he can tolerate w/o sx, rather than anticipating sx. Best strategy for him will likely be frequent snacks/small meals - Once weakness and PO intake improves, will need PT/OT evaluation Nausea / Vomiting GERD - Daily nausea and > 2 episodes of non bloody emesis leading to decreased PO intake - Given emesis happens more often in the morning when waking up and a few minutes after laying down, could have a component of acid reflux contributing to nausea - No bm over the last 2 days, which may be due to baseline constipation versus related to poor PO intake; may be contributing to current N/V - Continue Zofran prn for nausea with Compazine to be used for breakthrough nausea - Continue Protonix 40 mg PO and Pepcid 20 mg - Miralax daily Hyponatremia - Labs today showing Na of 128 (was 136 on 02/12); no sxs - Likely related to poor PO intake and only drinking water daily - s/p NSS 1L bolus x2 in ED; continue with LR at maintenance rate after - Encourage PO intake as mentioned above and monitor am labs Portal vein thrombosis / Chronic Warfarin use (INR goal 2-3) - Currently on Warfarin and Vitamin K. Follows Anticoagulation Clinic - INR down today from 4.3 to 3.3. Coag clinic today advised giving 1mg and reevaluating INR ESLD - Follows hepatology as an outpatient - MELD score of 22 - May consider EGD for possible gastropathy - On transplant list, but told he is currently too frail and would need to get stronger DM-II - Continue Lantus and SSI Hypothyroidism - Continue Levothyroxine Anxiety - Will hold home BZD due to current weakness and dizziness/imbalance Dispo: Med/Surg Fluids: LR @ 100 ml/hr Diet: Regular; ADAT Code Status: DNI Admission and Anticipated Discharge Date Admission Date: February 23, 2025 Supervising Physician Co-Signing Physician Notes I personally examined the patient and verified all trivedi points of history and exam, discussed case, and agree with decision making with Dr Okeefe still not really eaten well today. After multiple lines of directed questioning, it seems clear that he is not really feeling nauseated now, has not vomited, but rather that he is worried he will feel nauseated and that has been limiting his eating. Vitals noted, in general he is awake and alert pleasant no distress. HEENT normocephalic atraumatic mucous membranes moist. Breathing unlabored no accessory muscle use good effort. Abdomen soft mild distention nontender nauseaseems to be the main trigger for his poor p.o. intakeindigestion/upper GI mucosal disease certainly would fit, and now I suspect he has a degree of f ood/nausea aversion with self restricting. It is also possible he has worse GI mucosal illness or portal hypertensive gastropathy driving the nauseabut at this point I have gotten him a variety of food and encouraged frequent nibbling and snacking. Outlined nutrition "as a budget" with a target of 2000 paul based on a basal energy expenditure calculation. Discussed the critical importance of getting to calorie goal. If he is unable to or vomits, then would consult GI to consider EGD given refractory nausea and probability of mucosal illness. protein calorie malnutritionacutely seems to be severe given his weakness and the fact that he looks more muscle wasting and emaciatednutrition consult, ongoing coaching on adequate nutritionright now probably will be more important to target a calorie goals and necessarily quality. See above, and consulted dietitian DeconditioningPT/OT eval and treat end-stage liver disease/cirrhosistransplant candidatebut right now frail enough that he has been told that they may not be able to proceed with surgery even if he had a match and was at the top of the list. Seems that we need to do everything we can to help him with the malnutrition and deconditioning otherwise as above Subjective NAEO. Patient seen and examined at bedside. Reports feeling sick after taking just one bite of toast. Says he has been drinking water, but any other fluid (specifies tea) makes him ill. Denies any abd pain, constipation or diarrhea, chest pain, SOB. Review of Systems Review of Systems: As per HPI Physical Exam Physical Exam: Gen: Appears frail and fatigued. In NAD HEENT: NCAT, normal conjunctiva, MMM CV: RRR, no m/r/g, normal S1/S2 Resp: CTAB, symmetrical chest rise, breathing unlabored Abd: Soft, nontender, nondistended, normoactive BS, no HSM Skin: Warm, dry, well-perfused Psych: Full, euthymic affect. Speech pace and thought content normal. Good judgement and insight Results & Data Results & Data Vital Signs (Past 12 Hours) Vital Signs Temp Pulse Resp BP Pulse Ox O2 Del Method 02/24/25 15:01 36.5 C 84 16 96/61 L 92 Room Air 02/24/25 07:40 Room Air 02/24/25 07:31 36.3 C L 81 16 96/67 L 92 Room Air Resident Activity Tracking Resident Involvement: Resident Care Provided Care Provided: Adult Hospital Medicine (2) GERD (gastroesophageal reflux disease) Esophagitis presence: without esophagitis Qualified Code(s): K21.9 - Gastro- esophageal reflux disease without esophagitis (3) Nausea & vomiting Vomiting type: unspecified Qualified Code(s): R11.2 - Nausea with vomiting, unspecified (7) Hypothyroidism Hypothyroidism type: unspecified Qualified Code(s): E03.9 - Hypothyroidism, unspecified
--- NOTE | 2025-02-24 18:09 | Billing Data ---
Date of Service February 24, 2025 Coding Level of Care Code 71691 SUB INP/OBS CARE MIN
--- NOTE | 2025-02-24 22:47 | Electrocardiogram Report ---
Test Reason : Blood Pressure : */* mmHG Vent. Rate : 89 BPM Atrial Rate : 89 BPM P-R Int : 158 ms QRS Dur : 80 ms QT Int : 416 ms P-R-T Axes : 49 102 10 degrees QTcB Int : 506 ms Normal sinus rhythm Rightward axis Nonspecific ST and T wave abnormality Prolonged QT Abnormal ECG When compared with ECG of 31-Jan-2025 06:25, QRS axis Shifted right Nonspecific T wave abnormality, improved in Anterior leads Confirmed by Jarad Mack ([id number]) on 02/24/2025 10:47:13 PM Referred By: Confirmed By: Jarad Mack
[2025-02-25] MEDS: ACETAMINOPHEN 325 MG TAB PO PRN (05:37)
[2025-02-25 06:46] LABS: Hematocrit (blood only) 30.7 % (42.0-52.0); Hemoglobin 10.9 g/dL (14.0-18.0); Immature Granulocytes # (auto) 0.22 K/uL (0.01-0.20); Immature Granulocytes % (auto) 1.5 %; Mean Corpuscular Hemoglobin 34.4 pg (25.0-34.0); Mean Corpuscular Volume 96.8 fL (80.0-100.0); Platelet Count 280 K/uL (130-400); RDW Standard Deviation 60.7 fL (36.4-46.3); Red Blood Count 3.17 M/uL (4.70-6.10); White Blood Count 14.72 K/ul (4.8-10.8)
[2025-02-25 09:08] LABS: Alanine Aminotransferase 30.0 U/L (7-52); Albumin Globulin Ratio 0.4 (0.9-2); Albumin Level 1.8 gm/dl (3.4-5.0); Alkaline Phosphatase 300.0 U/L (34-104); Anion Gap 5.0 (3-11); Bilirubin,Total 3.3 mg/dl (0.2-1.0); Blood Urea Nitrogen 13.0 mg/dl (6-23); Calcium 7.8 mg/dl (8.6-10.3); Carbon Dioxide 27.0 mmol/L (21-32); Chloride 98.0 mmol/L (98-107); Creatinine Clr Calc Pharmacy 91.0 ml/min; Globulin 4.6 gm/dl (2.5-4.0); Glucose 98.0 mg/dl (70-99(Fasting)); Potassium 3.7 mmol/L (3.5-5.1); Sodium 130.0 mmol/L (136-145); Total Protein 6.4 gm/dl (6.0-8.3)
[2025-02-25 09:16] LABS: INR 3.0 (0.9-1.1); Prothrombin Time 30.2 Seconds (9.0-12.0)
--- NOTE | 2025-02-25 11:18 | Hospitalist Progress Note ---
Date of Service February 25, 2025 Assessment & Plan (1) Generalized weakness: (2) GERD (gastroesophageal reflux disease): (3) Nausea & vomiting: (4) Decreased oral intake: (5) Dehydration: (6) Hyponatremia: (7) Hypothyroidism: (8) End stage liver disease: (9) Controlled type 2 diabetes mellitus, with long-term current use of insulin: (10) Anticoagulant long-term use: (11) Superior mesenteric vein thrombosis: (12) Anxiety and depression: Plan Pt is a 69 yo male with a past medical hx of ESLD with hx of portal vein thrombosis now on warfarin chronically, hypothyroidism, GERD, T2DM on insulin, and hx esophageal varices admitted for weakness. Still feeling nauseous with any attempt at eating, sounds partly physical and partly psychological/anticipatory. Weakness // Physical deconditioning (uses walker at baseline) Decreased PO intake - Suspect progressively worsening weakness may be a combination of baseline physical deconditioning as has been seen in previous admissions, plus nausea leading to decreased PO intake and > 2 episodes of non bloody emesis daily. Likely some component of food aversion, given frequent nausea and desire to avoid provoking sx. - Weight loss of 3 kg compared to 02/02 - Patient encouraged to eat whatever appeared appetizing to him for now and will add mIVF until intake improves. Had informal nutritional counseling w/ patient 02/24 to emphasize need to try as much food as he can tolerate w/o sx, rather than anticipating sx. Best strategy for him will likely be frequent snacks/small meals - Pt did have emesis overnight. GI consulted, appreciate recs and whether pt is appropriate for EGD if no improvement in PO and nothing amenable to intervention on EGD, will need to discuss alternatives e.g. NG TF - Once weakness and PO intake improves, will need PT/OT evaluation Nausea / Vomiting GERD - Daily nausea and > 2 episodes of non bloody emesis leading to decreased PO intake - Given emesis happens more often in the morning when waking up and a few minutes after laying down, could have a component of acid reflux contributing to nausea - Continue Zofran prn for nausea with Compazine to be used for breakthrough nausea - Continue Protonix 40 mg PO and Pepcid 20 mg - Miralax daily Hyponatremia - Labs today showing Na of 128 (was 136 on 02/12); no sxs - Likely related to poor PO intake and only drinking water daily - s/p NSS 1L bolus x2 in ED; continue with LR at maintenance rate after - Encourage PO intake as mentioned above and monitor am labs Portal vein thrombosis / Chronic Warfarin use (INR goal 2-3) - Currently on Warfarin and Vitamin K. Follows Anticoagulation Clinic - INR down today from 4.3 to 3.3. Coag clinic today advised giving 1mg and reevaluating INR ESLD - Follows hepatology as an outpatient - MELD score of 22 - May consider EGD for possible gastropathy - On transplant list, but told he is currently too frail and would need to get stronger DM-II - Continue Lantus and SSI Hypothyroidism - Continue Levothyroxine Anxiety - Will hold home BZD due to current weakness and dizziness/imbalance Dispo: Med/Surg Fluids: LR @ 100 ml/hr Diet: Regular; ADAT Code Status: DNI Admission and Anticipated Discharge Date Admission Date: February 23, 2025 Supervising Physician Co-Signing Physician Notes I personally examined the patient and verified all trivedi points of history and exam, discussed case, and agree with decision making with Dr Okeefe Not eating well. Updated family as well. GI input appreciated. Vitals noted, in general he is awake and alert pleasant no distress. HEENT normocephalic atraumatic mucous membranes moist. Breathing unlabored no accessory muscle use good effort. Abdomen soft mild distention nontender nauseaseems to be the main trigger for his poor p.o. intakeindigestion/upper GI mucosal disease certainly would fit, and now I suspect he has a degree of food/nausea aversion with self restricting. It is also possible he has worse GI mucosal illness or portal hypertensive gastropathy driving the nauseaconcern given that his malnutrition won't improve without better PO intake - which will keep him from transplant candidacy. GI eval. ongoing encouragement to take PO intake. protein calorie malnutritionacutely seems to be severe given his weakness and the fact that he looks more muscle wasting and emaciatednutrition consult, ongoing coaching on adequate nutritionright now probably will be more important to target a calorie goals and necessarily quality. See above, and consulted dietitian DeconditioningPT/OT eval and treat end-stage liver disease/cirrhosistransplant candidatebut right now frail enough that he has been told that they may not be able to proceed with surgery even if he had a match and was at the top of the list. Seems that we need to do everything we can to help him with the malnutrition and deconditioning otherwise as above Subjective Patient did have multiple episodes of emesis yesterday evening/overnight. Still feeling nauseous with any attempt at eating. No abd pain, constipation, diarrhea. No KHALIL, CP, SOB Review of Systems Review of Systems: As per HPI Physical Exam Physical Exam: Gen: Appears frail and fatigued. In NAD HEENT: NCAT, normal conjunctiva, MMM CV: RRR, no m/r/g, normal S1/S2 Resp: CTAB, symmetrical chest rise, breathing unlabored Abd: Soft, nontender, nondistended, normoactive BS, no HSM Skin: Warm, dry, well-perfused Psych: Full, euthymic affect. Speech pace and thought content normal. Good judgement and insight Results & Data Results & Data Vital Signs (Past 12 Hours) Vital Signs Temp Pulse Resp BP Pulse Ox O2 Del Method 02/25/25 06:59 36.3 C L 67 17 100/67 93 Room Air Resident Activity Tracking Resident Involvement: Resident Care Provided Care Provided: Adult Hospital Medicine (2) GERD (gastroesophageal reflux disease) Esophagitis presence: without esophagitis Qualified Code(s): K21.9 - Gastro- esophageal reflux disease without esophagitis (3) Nausea & vomiting Vomiting type: unspecified Qualified Code(s): R11.2 - Nausea with vomiting, unspecified (7) Hypothyroidism Hypothyroidism type: unspecified Qualified Code(s): E03.9 - Hypothyroidism, unspecified
[2025-02-25] MEDS: WARFARIN SOD 1 MG TAB PO ONE (12:32)
--- NOTE | 2025-02-25 13:24 | Gastrointestinal Consultation ---
Date of Consultation February 25, 2025 Assessment & Plan (1) Decreased oral intake: (2) Cirrhosis of liver: Plan Patient has been having nausea, emesis, poor oral intake, increased acid reflux, and weight loss. He has a history of ESLD and follows with [facility]. - continue with protonix 40mg bid and famotidine 20mg bid. - can continue with use of antiemetics. could trial taking these before meals to see if this helps with oral intake. - Further recommendations to come with Supervising GI provider on medical rounds. Please see co-signature comments. Supervising Physician Co-Signing Physician Notes Patient with end-stage cirrhosis. On transplant list but apparently too frail. Tells me he gets paracentesis on Coumadin. States as long as his INR is less than 7. No paracentesis for at least a month. Comes in now with a month of poor p.o. intake nausea and intermittent vomiting. States the vomiting can be dark. Hemoglobin globin currently 11 which is around his baseline. No new medications. Denies NSAID use. Zofran as an outpatient has not been effective. Home meds list omeprazole 40 mg p.o. twice daily. Liver test not significantly different from previous admissions Abdominal examination is a firm abdomen. It is tympanic to percussion over the upper abdomen so less likely ascites. There is dullness in the pelvis. Do not see any imaging on admission. Check abdominal series evaluate for ileus obstipation constipation bowel obstruction. Check ultrasound for tense ascites and rule out secondary portal or hepatic vein thrombosis though appears less likely with chronic Coumadin use. Continue twice daily PPI therapy. Patient had endoscopy back in July no significant varices seen. Do not plan endoscopy at this time History of Present Illness Reason for Consultation: persistent nausea, vomiting Requesting Physician: Almaz Okeefe MD Attending Physician: Armando Viveros DO History of Present Illness Patient is a 69 year old male with a past medical history of end stage liver disease with a history of portal vein thrombosis now on warfarin chronically, hypothyroidism, GERD, DM II on insulin, and history of esophageal varices adm itted for weakness. he reports to me that he has had 2 weeks of nausea, vomiting, increased heartburn, and poor oral intake. he has had some weight loss with this but uncertain of how much. He tells me that nausea is a little better today. last episode of emesis was last evening. He tells me that the heartburn has been an issue despite home BID PPI. He notes constipation which he felt was secondary to not eating as much. no blood in the stools or melena. he has a history of cirrhosis and does follow with [facility] for potential [facility]. the remainder of the GI ros are unremarkable. 02/25/25 wbc 14.72, hgb 10.9, hct 30.7, plts 280, INR 3, Na 130, K 3.7, BUN13, Cr 0.78, T bili 3.3, AST 75, ALT 30, Alk 300. MELD 27. EGD 07/2024 portal hypertensive gastropathy, small hiatal hernia, portal duodenopathy. Allergies Allergy/AdvReac Type Severity Reaction Status Date / Time exenatide [From Byetta] AdvReac Unknown Diarrhea Verified 02/16/25 13:13 macrolides AdvReac Uncoded 02/16/25 13:13 Home Medications Medication Instructions Recorded Confirmed Type ferrous sulfate 325 mg (65 mg 325 mg PO BID #60 tabs 08/11/18 02/23/25 Rx iron) tablet (iron) cyanocobalamin (vitamin B-12) 1,000 mcg PO QAM 11/25/18 02/23/25 History 1,000 mcg capsule blood sugar diagnostic (OneTouch 02/10/21 02/12/25 History Ultra Blue Test Strip) blood-glucose,executive producer,cont 01/03/23 02/12/25 History (Dexcom G7 Tube Balancer) insulin glargine 100 unit/mL (3 4 unit subcut QAM 01/30/24 02/23/25 History mL) subcutaneous pen (Lantus Solostar U-100 Insulin) simvastatin 20 mg tablet 20 mg PO QAM #90 tabs 06/26/24 02/23/25 Rx albuterol sulfate 90 mcg/actuation 2 inh inhalation DAILY PRN Wheezing 07/24/24 02/23/25 History aerosol inhaler polyethylene glycol 3350 17 gram 17 g PO BID PRN constpation 07/24/24 02/23/25 History oral powder packet (Miralax) sertraline 50 mg tablet 50 mg PO QAM 07/24/24 02/23/25 History levothyroxine 175 mcg tablet 175 mcg PO QAM #90 tabs 10/05/24 02/23/25 Rx pen needle, diabetic 31 gauge x #100 ea 10/12/24 02/12/25 Rx 5/16" (TechLITE Pen Needle) phytonadione (vitamin K1) 100 mcg 100 mcg PO DAILY 11/24/24 02/23/25 History tablet lorazepam 0.5 mg tablet 0.5 mg PO DAILY PRN anxiety #30 11/30/24 02/23/25 Rx tabs cholecalciferol (vitamin D3) 25 25 mcg PO BID 12/20/24 02/23/25 History mcg (1,000 unit) tablet (Vitamin D3) warfarin 2.5 mg tablet 2.5 mg PO DAILY 01/05/25 02/23/25 History bupropion HCl 150 mg tablet,12 hr 150 mg PO Q12 01/30/25 02/23/25 History sustained-release calcium carbonate 500 mg PO BID 01/30/25 02/23/25 History omeprazole 40 mg capsule,delayed 40 mg PO BIDM 01/30/25 02/23/25 History release ondansetron 4 mg disintegrating 4 mg translingual Q6 PRN 02/12/25 02/23/25 Rx tablet NAUSEA/VOMITING #60 tabs insulin aspart U-100 100 unit/mL 1 sliding scale dose subcut 02/16/25 02/23/25 History (3 mL) subcutaneous pen (Novolog USEASDIRECTD FlexPen U-100 Insulin aspart) acetaminophen 325 mg tablet 650 mg PO Q8 02/23/25 02/23/25 History rifaximin 550 mg tablet (Xifaxan) 550 mg PO BID 02/23/25 02/23/25 History Patient History Medical History History of MRSA infection (2021) History of recent hospitalization (07/2024) for infection pt is not sure details. hospitalized at [facility]. infection resolved per pt. had f/u with pcp since d/c on jul 17 2024 and sent to hospital for ascites (had paracentesis), kept as inpatient. Pt is not sure date of discharge. Coughing ongoing occ productive cough since apr 2024/ evaluated w/pcp/unknown etiology/much improved per pt. at current unproductive cough on occ. Gastritis none that pt aware of Tremor denies current or hx Anxiety and depression History of hyperlipidemia History of hypertension History of GI bleed History of esophageal varices hx banding History of COVID-19 approx 2021 - no hx hospitalization. History of colitis History of anemia Diarrhea ongoing problem CKD (chronic kidney disease), stage III Portal hypertension GERD (gastroesophageal reflux disease) Peripheral neuropathy History of biliary stent insertion (2013) pt reports he still has this stent. Patient on waiting list for liver transplant Spontaneous bacterial peritonitis hx 05/2024 - presumed 2nd strep pneumo, resolved to pt knowledge. Bacteremia due to Streptococcus pneumoniae hx, 05/2024 [facility] inpatient. resolved. Superior mesenteric vein thrombosis not that pt aware of current or hx Portal vein thrombosis pt reports they want to keep my blood pressure on the lower side due to the clot. BERNAL (nonalcoholic steatohepatitis) History of ascites last occurence /drained July 2024 Post traumatic stress disorder Surgical History History of abdominal paracentesis multiple, most recent july 2024. History of surgery of liver Hepatic lobectomy (benign tumor) S/P debridement ABDOMINAL WOUND 2017 History of herniorrhaphy WITH MESH-2017 History of ERCP hx 08/[address] [facility], maybe had one more recently with infection pt is not sure. Hx of hand surgery RT HAND/ARM SURGERY (METAL PLATE D/T FX) Hx of vasectomy History of esophagogastroduodenoscopy (EGD) History of colonoscopy History of cholecystectomy History of tooth extraction several Family History Mother Diabetes Cancer Grandmother No problems noted. Grandmother (Maternal) Diabetes Family/Other Heart disease Hypertension Father Lung cancer Other No family history of adverse response to anesthesia Denies family history of Ovarian cancer Prostate cancer Myocardial infarction Breast cancer Colorectal cancer Social History (Updated 02/16/25 @ 13:20 by Nusrat Cantu RN) Smoking Status: Former smoker Tobacco Type: Cigarettes Age Started Using Tobacco: 17; Age Quit Using Tobacco: 31; packs per day: 1.5; Second Hand Exposure: No; Do You Dip or Chew Tobacco: No; Hx Alcohol Use: No Hx Substance Use: No Preferred Language: French Communication Ability: Effective Visual Impairment: No Limitations Hearing Ability: Normal Personnel Quality Assurance Auditor Required: No Beliefs That Will Affect Care: None marital status: Current Living Situation: Spouse Current Living Situation Comment: and dog current occupational status: retired 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 [employer] How many Children do You have: 3 Feels Safe at Home: Yes Childhood Exposure to Second-Hand Smoke: Yes Diet: regular caffeine: Yes during the past year weight has: remained stable Dental Care, Regularly: Yes Physical Activity Frequency: 3-4 Times per Week Seatbelt Use: never Sunscreen Use: No Do you think of yourself as: straight/heterosexual Sexual Activity: has been sexually active, but not for at least 12 months Gender Identity: Male Assistive Devices: Cane and Walker Review of Systems Review of Systems: All systems reviewed & are unremarkable except as noted in HPI & below Physical Exam Constitutional: thin appearing, frail Respiratory: normal respiratory effort, lungs clear to auscultation Cardiovascular: Rate/Rhythm: regular rate and regular rhythm Gastrointestinal (Abdomen): nontender, soft, normal bowel sounds. Psychiatric: Orientation: alert and oriented x 3 Affect: euthymic affect Results & Data Vital Signs (Past 12 Hours) Vital Signs Temp Pulse Resp BP Pulse Ox O2 Del Method 02/25/25 06:59 97.3 F L 67 17 100/67 93 Room Air Coding Level of Care Code 36916 INT INP/OBS CARE 2/55MIN Diagnoses Decreased oral intake R63.8 Alcoholic cirrhosis of liver with ascites K70.31; K72.90 Ascites presence: with ascites Hepatic cirrhosis type: alcoholic cirrhosis (2) Cirrhosis of liver Ascites presence: with ascites Hepatic cirrhosis type: alcoholic cirrhosis Qualified Code(s): K70.31 - Alcoholic cirrhosis of liver with ascites; K72.90 - Hepatic failure, unspecified without coma
--- NOTE | 2025-02-25 19:43 | Billing Data ---
Date of Service February 25, 2025 Coding Level of Care Code 72745 SUB INP/OBS CARE
[2025-02-26 05:10] LABS: Hematocrit (blood only) 32.3 % (42.0-52.0); Hemoglobin 10.9 g/dL (14.0-18.0); Immature Granulocytes # (auto) 0.23 K/uL (0.01-0.20); Immature Granulocytes % (auto) 1.4 %; Mean Corpuscular Hemoglobin 33.6 pg (25.0-34.0); Mean Corpuscular Volume 99.7 fL (80.0-100.0); Platelet Count 272 K/uL (130-400); RDW Standard Deviation 62.9 fL (36.4-46.3); Red Blood Count 3.24 M/uL (4.70-6.10); White Blood Count 16.45 K/ul (4.8-10.8)
[2025-02-26 05:28] LABS: Alanine Aminotransferase 30.0 U/L (7-52); Albumin Globulin Ratio 0.4 (0.9-2); Albumin Level 1.8 gm/dl (3.4-5.0); Alkaline Phosphatase 281.0 U/L (34-104); Anion Gap 5.0 (3-11); Bilirubin,Total 3.3 mg/dl (0.2-1.0); Blood Urea Nitrogen 12.0 mg/dl (6-23); Calcium 7.8 mg/dl (8.6-10.3); Carbon Dioxide 26.0 mmol/L (21-32); Chloride 99.0 mmol/L (98-107); Creatinine Clr Calc Pharmacy 87.7 ml/min; Globulin 4.4 gm/dl (2.5-4.0); Glucose 94.0 mg/dl (70-99(Fasting)); Potassium 3.7 mmol/L (3.5-5.1); Sodium 130.0 mmol/L (136-145); Total Protein 6.2 gm/dl (6.0-8.3)
[2025-02-26 05:49] LABS: INR 2.9 (0.9-1.1); Prothrombin Time 28.5 Seconds (9.0-12.0)
--- NOTE | 2025-02-26 09:27 | XRay Report ---
XR abdomen 2V w PA chest HISTORY: 69 years-old Male Abdominal distention tympany acute shortness of breath with abdominal dis tention COMPARISON: Chest radiograph 02/23/2025, CT chest, abdomen and pelvis 01/30/2025 TECHNIQUE: PA view of the chest with erect and supine views of the abdomen FINDINGS: Cardiac silhouette is enlarged. Pulmonary vascular congestion with interstitial coarsening. Layering pleural effusions with bibasilar consolidation, left greater than right with progression compared to the prior study. Degenerative changes of the shoulders and spine. A right upper quadrant stent is redemonstrated along with right upper quadrant surgical clips. Calcif ied granulomata of the spleen. Midabdominal anastomotic sutures are again noted along with gaseous di stention of the mid abdominal bowel anastomosis. Air is also noted within the large bowel. IMPRESSION: 1. Cardiomegaly with probable pulmonary edema. 2. Increased size of the layering pleural effusions with bibasilar consolidation, left greater than r ight. 3. Mild gaseous distention of the large and small bowel with distention of the mid abdominal small benjamin wel anastomosis redemonstrated. ACT 112: Negative or not required by law. The above report was generated using voice recognition software. It may contain grammatical, syntax o r spelling errors. Electronically signed by: Sujit Velarde M.D. 02/26/2025 9:25 AM
--- NOTE | 2025-02-26 10:05 | Hospitalist Progress Note ---
Date of Service February 26, 2025 Assessment & Plan (1) Generalized weakness: (2) GERD (gastroesophageal reflux disease): (3) Nausea & vomiting: (4) Decreased oral intake: (5) Dehydration: (6) Hyponatremia: (7) Hypothyroidism: (8) End stage liver disease: (9) Controlled type 2 diabetes mellitus, with long-term current use of insulin: (10) Anticoagulant long-term use: (11) Superior mesenteric vein thrombosis: (12) Anxiety and depression: Plan Pt is a 69 yo male with a past medical hx of ESLD with hx of portal vein thrombosis now on warfarin chronically, hypothyroidism, GERD, T2DM on insulin, and hx esophageal varices admitted for weakness. Still feeling nauseous with any attempt at eating, sounds partly physical and partly psychological/anticipatory. Weakness // Physical deconditioning (uses walker at baseline) Decreased PO intake - Suspect progressively worsening weakness may be a combination of baseline physical deconditioning as has been seen in previous admissions, plus nausea leading to decreased PO intake and > 2 episodes of non bloody emesis daily. Likely some component of food aversion, given frequent nausea and desire to avoid provoking sx. - Weight loss of 3 kg compared to 02/02 - Patient encouraged to eat whatever appeared appetizing to him for now and will add mIVF until intake improves. Had informal nutritional counseling w/ patient 02/24 to emphasize need to try as much food as he can tolerate w/o sx, rather than anticipating sx. Best strategy for him will likely be frequent snacks/small meals - GI consulted, appreciate recs and whether pt is appropriate for EGD - Pt had EGD July 2024, which showed portal hypertensive gastropathy, small hiatal hernia, portal duodenopathy. - Ordered Abd series, Abd US, Portal vein US - results do not provide adequate explanation of sx - Once weakness and PO intake improves, will need PT/OT evaluation - Due to lack of clear pathology behind sx, other than food aversion, will discuss NG tube with pt and family. If agreeable, plan to drop NG tonight and start TF at 10ml/hr and increase by 10 q3h as tolerated. Can consult belting and webbing inspector if needed next weekday Nausea / Vomiting GERD - Daily nausea and > 2 episodes of non bloody emesis leading to decreased PO intake - Given emesis happens more often in the morning when waking up and a few minutes after laying down, could have a component of acid reflux contributing to nausea - Continue Zofran prn for nausea with Compazine to be used for breakthrough nausea - Continue Protonix 40 mg PO and Pepcid 20 mg - Miralax daily Hyponatremia - Labs today showing Na of 128 (was 136 on 02/12); no sxs - Likely related to poor PO intake and only drinking water daily - s/p NSS 1L bolus x2 in ED; continue with LR at maintenance rate after - Encourage PO intake as mentioned above and monitor am labs Portal vein thrombosis / Chronic Warfarin use (INR goal 2-3) - Currently on Warfarin and Vitamin K. Follows Anticoagulation Clinic - INR of 2.9 today at goal. ESLD - Follows hepatology as an outpatient - On transplant list, but told he is currently too frail and would need to get stronger DM-II - Continue Lantus and SSI Hypothyroidism - Continue Levothyroxine Anxiety - Will hold home BZD due to current weakness and dizziness/imbalance Dispo: Med/Surg Fluids: LR @ 100 ml/hr Diet: Regular; ADAT Code Status: DNI Admission and Anticipated Discharge Date Admission Date: February 23, 2025 Supervising Physician Co-Signing Physician Notes I personally examined the patient and verified all trivedi points of history and exam, discussed case, and agree with decision making with Dr Okeefe Still not eating well. Updated family as well. GI input appreciated. Vitals noted, in general he is awake and alert pleasant no distress. HEENT normocephalic atraumatic mucous membranes moist. Breathing unlabored no accessory muscle use good effort. Abdomen soft mild distention nontender nauseatrial of tube feeds - ?aversion nausea vs truly can't tolerate. protein calorie malnutritionacutely seems to be severe given his weakness and the fact that he looks more muscle wasting and emaciatednutrition consult, ongoing coaching on adequate nutritionright now probably will be more important to target a calorie goals and necessarily quality. Starting tube feeds. See above, and consulted dietitian, input greatly appreciated DeconditioningPT/OT eval and treat end-stage liver disease/cirrhosistransplant candidatebut right now frail enough that he has been told that they may not be able to proceed with surgery even if he had a match and was at the top of the list. Seems that we need to do everything we can to help him with the malnutrition and deconditioning otherwise as above Subjective NAEO. AFVSS with low-normal BP. No emesis but pt still nauseous and exhibiting food aversion. Denies abd pain, CP, SOB, dizziness, weakness, paresthesias Review of Systems Review of Systems: As per HPI Physical Exam Physical Exam: Gen: Appears frail and fatigued. In NAD HEENT: NCAT, normal conjunctiva, MMM CV: RRR, no m/r/g, normal S1/S2 Resp: CTAB, symmetrical chest rise, breathing unlabored Abd: Soft, no epigastric tenderness, nondistended, normoactive BS, no HSM Skin: Warm, dry, well-perfused Psych: Full, euthymic affect. Speech pace and thought content normal. Good judgement and insight Results & Data Results & Data Vital Signs (Past 12 Hours) Vital Signs Temp Pulse Resp BP Pulse Ox O2 Del Method 02/26/25 07:32 36.3 C L 86 17 99/62 L 91 Room Air 02/25/25 22:58 36.6 C 83 16 114/62 92 Room Air Resident Activity Tracking Resident Involvement: Resident Care Provided Care Provided: Adult Hospital Medicine (2) GERD (gastroesophageal reflux disease) Esophagitis presence: without esophagitis Qualified Code(s): K21.9 - Gastro- esophageal reflux disease without esophagitis (3) Nausea & vomiting Vomiting type: unspecified Qualified Code(s): R11.2 - Nausea with vomiting, unspecified (7) Hypothyroidism Hypothyroidism type: unspecified Qualified Code(s): E03.9 - Hypothyroidism, unspecified
--- NOTE | 2025-02-26 10:40 | Ultrasound Report ---
ULTRASOUND ASCITES CHECK CLINICAL HISTORY: Abdominal distention. COMPARISON STUDY: Abdominal CT dated 01/30/2025. FINDINGS: Real-time grayscale and color flow sonography of all 4 quadrants of the abdomen is performe d to assess for abdominal ascites. There are bilateral pleural effusions. There is a large complex po cket of abdominal fluid seen in the lower abdomen. This extends from the right lower quadrant the lef t lower quadrant. This does not show internal flow on color imaging. Pneumobilia is noted. No simple ascites is identified. IMPRESSION: 1. Bilateral pleural effusions. 2. There is a large complex/debris-containing pocket of fluid/collection in the lower abdomen extendi ng from the right lower quadrant to the left lower quadrant. 3. No simple appearing ascites is seen. Electronically signed by: Warren Pink M.D. 02/26/2025 10:39 AM
--- NOTE | 2025-02-26 12:33 | Gastroenterology Progress Note ---
Date of Service February 26, 2025 Assessment & Plan (1) Cirrhosis of liver: (2) Decreased oral intake: Plan Patient feeling better and tolerating his diet. - continue with protonix 40mg bid and famotidine 20mg bid. - can continue with use of antiemetics. - will review imaging studies with Dr. Jackson. Admission and Anticipated Discharge Date Admission Date: February 23, 2025 Supervising Physician Co-Signing Physician Notes Some air in this large and small bowel. Consistent with the tympany identified on yesterday's abdominal examination. Ultrasound shows a loculated collection down in the pelvis. No flow any minimal ascites. It is possible this represents a loculated area of ascites the debris within it may be old blood this gentleman has been getting paracentesis on Coumadin. He has had CT scans which suggest early changes of this back in January. To compare apples to apples a repeat CT scan will be ordered. Question role this is playing in patient's symptoms and ileus. Await CT scan. Patient's white count is increasing. Cover for infective process pending workup. Subjective Patient notes that he feels somewhat better today. no current nausea or vomiting. he is tolerating his diet. xray Chest/abdomen 02/26/25 :1. Cardiomegaly with probable pulmonary edema. 2. Increased size of the layering pleural effusions with bibasilar consolidation, left greater than right. 3. Mild gaseous distention of the large and small bowel with distention of the mid abdominal small bowel anastomosis redemonstrated. abdomen US 02/26/25 : 1. Bilateral pleural effusions. 2. There is a large complex/debris-containing pocket of fluid/collection in the lower abdomen extending from the right lower quadrant to the left lower quadrant. 3. No simple appearing ascites is seen. Review of Systems Review of Systems: All systems reviewed & are unremarkable except as noted in HPI & below Physical Exam Constitutional: WD/WN, vitals as above Respiratory: normal respiratory effort, lungs clear to auscultation Cardiovascular: Rate/Rhythm: regular rate and regular rhythm Gastrointestinal (Abdomen): some firmness, no guarding, nontender, normal bowel sounds Psychiatric: Orientation: alert and oriented x 3 Affect: euthymic affect Results & Data Results & Data Vital Signs (Past 12 Hours) Vital Signs Temp Pulse Resp BP Pulse Ox O2 Del Method 02/26/25 07:32 97.3 F L 86 17 99/62 L 91 Room Air Coding Level of Care Code 71020 SUB INP/OBS CARE 04/04MIN Diagnoses Alcoholic cirrhosis of liver with ascites K70.31; K72.90 Ascites presence: with ascites Hepatic cirrhosis type: alcoholic cirrhosis Decreased oral intake R63.8 (1) Cirrhosis of liver Ascites presence: with ascites Hepatic cirrhosis type: alcoholic cirrhosis Qualified Code(s): K70.31 - Alcoholic cirrhosis of liver with ascites; K72.90 - Hepatic failure, unspecified without coma
--- NOTE | 2025-02-26 13:32 | Ultrasound Report ---
DOPPLER ULTRASOUND OF THE PORTAL VEINS CLINICAL HISTORY: Abdominal distention. COMPARISON STUDY: Abdominal CT dated 01/30/2025. TECHNIQUE: Real-time, grayscale and color Doppler sonography of the hepatic and portal vasculature is performed. FINDINGS: The right hepatic lobe is surgically absent. The right portal vein was not visualized. The left portal vein is patent with normal direction of flow. Imaged portions of the main portal vein drea ear patent at the hepatic hilum. This is not well assessed near the portosplenic confluence. IMPRESSION: 1. Imaged portions of the main portal vein near the hilum are patent, as is the left portal vein. 2. The portal vein is not well-visualized near the portosplenic confluence. 3. The right portal vein is surgically absent and not visualized. Dictated: 02/26/2025 11:34 AM Transcribed: 02/26/2025 12:24 PM Sammy [id number] [email or web address] Electronically signed by: Warren Pink M.D. 02/26/2025 1:31 PM
--- NOTE | 2025-02-26 15:31 | CT Scan Report ---
ABDOMEN AND PELVIS CT WITHOUT CONTRAST CT DOSE: 1226.52 mGy.cm HISTORY: Acute generalized abdominal pain with reported intra-abdominal fluid collection assess flui d collection TECHNIQUE: Multiaxial CT images of the abdomen and pelvis were performed without contrast. A dose lo wering technique was utilized adhering to the principles of ALARA. COMPARISON STUDY: CT abdomen and pelvis 01/30/2025 and also 10/20/2024, ultrasound study 02/26/2025. FINDINGS: Moderate layering pleural effusions, left greater than right with dependent bibasilar conso lidation. Intralobular septal thickening suggestive of interstitial pulmonary edema. Calcified right hilar lymph nodes. Calcified granulomata of the spleen redemonstrated. Pancreatic atrophy with scattered parenchymal paul cifications again noted compatible with sequela of chronic pancreatitis. Common bile duct stent appea rs in similar position compared to 01/30/2025. Cholecystectomy. Nonspecific gastrohepatic and peripor lm lymphadenopathy redemonstrated. Partial resection of the right hepatic lobe. Pneumobilia compatib le with stent patency. Previously noted ill-defined hypodense lesion of the liver is normal seen on t his noncontrast study. Mildly progressed pericardial lymphadenopathy includes a 1.9 x 0.9 cm lymph no de on image 43 series 3. Unremarkable kidneys. No hydronephrosis. Urinary bladder wall thickening with partial distention. Ath erosclerosis of the aorta without aneurysm. Anasarca. Distal esophageal wall thickening with small hi atal hernia. There is diffuse wall thickening noted throughout the colon. Several loops of small tessa l also demonstrates circumferential wall thickening with scattered air-fluid levels. Unchanged dilati on of the mid abdominal small bowel anastomosis. A few loops of small bowel within the right mid abdo men measure up to 4 cm, previously 3.2 cm. No acute fracture. Loculated ascites with peripheral and p eritoneal enhancement appears similar dating back to numerous studies. L1 compression deformity is un changed. Gynecomastia. IMPRESSION: 1. Fluid overload with moderate pleural effusions and anasarca. Ocular abdominal pelvic ascites with peritoneal enhancement is a chronic finding and appears similar from numerous prior studies. 2. Postoperative changes of the abdomen and pelvis redemonstrated with partial hepatectomy and common bile duct stent in place. Pneumobilia confirms stent patency. 3. Diffuse wall thickening of the colon likely related to the volume overload. A nonspecific colitis could appear similarly. 4. Mildly progressed dilation of the small bowel compared to the 01/30/2025 study suggests a probable ileus. A low-grade small bowel however remains within the differential. 5. Unchanged upper abdominal lymphadenopathy with mildly progressed epicardial lymphadenopathy. 6. Chronic findings as above. ACT 112: Negative or not required by law. The above report was generated using voice recognition software. It may contain grammatical, syntax o r spelling errors. Electronically signed by: Sujit Velarde M.D. 02/26/2025 3:29 PM
[2025-02-26] MEDS: cefTRIAXone SODIUM 2,000 MG/50 ML BAG IV STA (15:58)
[2025-02-26] MEDS ORDERED: PEPTAMEN 1.5 CAL 1,000 ML BAG NG SCH (16:15)
--- NOTE | 2025-02-26 18:08 | Billing Data ---
Date of Service February 26, 2025 Coding Level of Care Code 59812 SUB INP/OBS CARE MIN
--- NOTE | 2025-02-26 21:08 | XRay Report ---
HISTORY: Tube placement. TECHNIQUE: Portable AP radiograph of the chest. COMPARISON: Chest radiograph dated 02/23/2025. FINDINGS: Appropriately positioned NG tube with tip overlying the stomach. Moderate to large left pleural effusion. Small right pleural effusion. Left lower lung opacity. No pneumothorax. IMPRESSION: * Appropriately positioned NG tube. * Moderate to large left and small right pleural effusion. * Similar left mid and lower lung airspace opacity, which could represent compressive atelectasis or pneumonia. Electronically signed by Ivan Gregg 02-26-2025 9:08 PM
[2025-02-26] MEDS: TUBE FEEDING WATER FLUSH NG SCH (21:30)
[2025-02-26] MEDS: PEPTAMEN 1.5 CAL 1,000 ML BAG NG SCH (23:57)
[2025-02-27 06:09] LABS: Hematocrit (blood only) 32.4 % (42.0-52.0); Hemoglobin 11.1 g/dL (14.0-18.0); Immature Granulocytes # (auto) 0.19 K/uL (0.01-0.20); Immature Granulocytes % (auto) 1.4 %; Mean Corpuscular Hemoglobin 33.6 pg (25.0-34.0); Mean Corpuscular Volume 98.2 fL (80.0-100.0); Platelet Count 307 K/uL (130-400); RDW Standard Deviation 62.3 fL (36.4-46.3); Red Blood Count 3.30 M/uL (4.70-6.10); White Blood Count 13.80 K/ul (4.8-10.8)
[2025-02-27 06:26] LABS: Alanine Aminotransferase 30.0 U/L (7-52); Albumin Globulin Ratio 0.4 (0.9-2); Albumin Level 1.8 gm/dl (3.4-5.0); Alkaline Phosphatase 267.0 U/L (34-104); Anion Gap 5.0 (3-11); Bilirubin,Total 2.9 mg/dl (0.2-1.0); Blood Urea Nitrogen 11.0 mg/dl (6-23); Calcium 7.7 mg/dl (8.6-10.3); Carbon Dioxide 26.0 mmol/L (21-32); Chloride 98.0 mmol/L (98-107); Creatinine Clr Calc Pharmacy 89.9 ml/min; Globulin 4.6 gm/dl (2.5-4.0); Glucose 95.0 mg/dl (70-99(Fasting)); Magnesium 1.5 mg/dl (1.7-2.4); Potassium 3.8 mmol/L (3.5-5.1); Sodium 129.0 mmol/L (136-145); Total Protein 6.4 gm/dl (6.0-8.3)
[2025-02-27 06:33] LABS: INR 2.9 (0.9-1.1); Prothrombin Time 28.9 Seconds (9.0-12.0)
--- NOTE | 2025-02-27 07:25 | Gastroenterology Progress Note ---
Date of Service February 27, 2025 Assessment & Plan (1) Chronic liver disease and cirrhosis: Plan: Complicated by anasarca, ascites and pleural effusions. Need to also consider cardiac cause for pulmonary congestion. Suspect ileus due to congestive enteropathy and not an obstruction. CT scan shows a stable chronic loculated ascites no change. Would consider starting diuretic therapy for fluid overload. Consider cardiology consult. Will obtain repeat x-ray to assess status of small bowel dilatation. Admission and Anticipated Discharge Date Admission Date: February 23, 2025 Subjective Resting comfortably now with NG tube in place no shortness of breath no abdominal pain no chest pain Physical Exam Physical Exam: No acute distress Respiratory rate regular Cardiac rhythm regular Abdomen soft nontender Results & Data Results & Data Vital Signs (Past 12 Hours) Vital Signs Temp Pulse Resp BP Pulse Ox O2 Del Method 02/27/25 07:07 36.4 C L 88 16 105/69 91 Room Air 02/26/25 23:42 36.5 C 85 16 115/68 90 Room Air Laboratory Results Laboratory Results - last 48 hr 02/25/25 02/25/25 02/25/25 08:33 11:09 16:31 WBC RBC Hgb Hct MCV MCH MCHC RDW Std Deviation RDW Coeff of Debby Plt Count MPV Immature Gran % (Auto) Neut % (Auto) Lymph % (Auto) [place] % (Auto) Eos % (Auto) Baso % (Auto) Neut # (Auto) Lymph # (Auto) [place] # (Auto) Eos # (Auto) Baso # (Auto) Immature Gran # (Auto) PT 30.2 H INR 3.0 H Sodium 130 L Potassium 3.7 Chloride 98 Carbon Dioxide 27 Anion Gap 5 BUN 13 Creatinine 0.78 Est Cr Clr Drug Dosing 91.0 eGFR 97.14 BUN/Creatinine Ratio 16.7 Glucose 98 POC Glucose 115 H 89 Calcium 7.8 L Phosphorus Magnesium Total Bilirubin 3.3 H AST 75 H ALT 30 Alkaline Phosphatase 300 H Total Protein 6.4 Albumin 1.8 L Globulin 4.6 H Albumin/Globulin Ratio 0.4 L 02/25/25 02/26/25 02/26/25 20:29 04:43 11:36 WBC 16.45 H RBC 3.24 L Hgb 10.9 L Hct 32.3 L MCV 99.7 MCH 33.6 MCHC 33.7 RDW Std Deviation 62.9 H RDW Coeff of Debby 17.6 H Plt Count 272 MPV 9.5 Immature Gran % (Auto) 1.4 Neut % (Auto) 84.0 Lymph % (Auto) 4.9 [place] % (Auto) 7.7 Eos % (Auto) 1.6 Baso % (Auto) 0.4 Neut # (Auto) 13.80 H Lymph # (Auto) 0.81 L [place] # (Auto) 1.27 H Eos # (Auto) 0.27 Baso # (Auto) 0.07 Immature Gran # (Auto) 0.23 H PT 28.5 H INR 2.9 H Sodium 130 L Potassium 3.7 Chloride 99 Carbon Dioxide 26 Anion Gap 5 BUN 12 Creatinine 0.81 Est Cr Clr Drug Dosing 87.7 eGFR 96.04 BUN/Creatinine Ratio 14.8 Glucose 94 POC Glucose 131 H 78 Calcium 7.8 L Phosphorus Magnesium Total Bilirubin 3.3 H AST 67 H ALT 30 Alkaline Phosphatase 281 H Total Protein 6.2 Albumin 1.8 L Globulin 4.4 H Albumin/Globulin Ratio 0.4 L 02/26/25 02/26/25 02/27/25 16:24 21:09 05:40 WBC 13.80 H RBC 3.30 L Hgb 11.1 L Hct 32.4 L MCV 98.2 MCH 33.6 MCHC 34.3 RDW Std Deviation 62.3 H RDW Coeff of Debby 17.6 H Plt Count 307 MPV 9.6 Immature Gran % (Auto) 1.4 Neut % (Auto) 82.8 Lymph % (Auto) 4.6 [place] % (Auto) 8.6 Eos % (Auto) 2.2 Baso % (Auto) 0.4 Neut # (Auto) 11.45 H Lymph # (Auto) 0.63 L [place] # (Auto) 1.18 H Eos # (Auto) 0.30 Baso # (Auto) 0.05 Immature Gran # (Auto) 0.19 PT 28.9 H INR 2.9 H Sodium 129 L Potassium 3.8 Chloride 98 Carbon Dioxide 26 Anion Gap 5 BUN 11 Creatinine 0.79 Est Cr Clr Drug Dosing 89.9 eGFR 96.77 BUN/Creatinine Ratio 13.9 Glucose 95 POC Glucose 103 H 75 Calcium 7.7 L Phosphorus 2.7 Magnesium 1.5 L Total Bilirubin 2.9 H AST 69 H ALT 30 Alkaline Phosphatase 267 H Total Protein 6.4 Albumin 1.8 L Globulin 4.6 H Albumin/Globulin Ratio 0.4 L Diagnostic Findings Abdomen Ultrasound 02/26/25 07:00 ULTRASOUND ASCITES CHECK CLINICAL HISTORY: Abdominal distention. COMPARISON STUDY: Abdominal CT dated 01/30/2025. FINDINGS: Real-time grayscale and color flow sonography of all 4 quadrants of the abdomen is performed to assess for abdominal ascites. There are bilateral pleural effusions. There is a large complex pocket of abdominal fluid seen in the lower abdomen. This extends from the right lower quadrant the left lower quadrant. This does not show internal flow on color imaging. Pneumobilia is noted. No simple ascites is identified. IMPRESSION: 1. Bilateral pleural effusions. 2. There is a large complex/debris-containing pocket of fluid/collection in the lower abdomen extending from the right lower quadrant to the left lower quadrant. 3. No simple appearing ascites is seen. Electronically signed by: Warren Pink M.D. 02/26/2025 10:39 AM Chest/Abdomen X-ray 02/26/25 07:00 XR abdomen 2V w PA chest HISTORY: 69 years-old Male Abdominal distention tympany acute shortness of breath with abdominal distention COMPARISON: Chest radiograph 02/23/2025, CT chest, abdomen and pelvis 01/30/2025 TECHNIQUE: PA view of the chest with erect and supine views of the abdomen FINDINGS: Cardiac silhouette is enlarged. Pulmonary vascular congestion with interstitial coarsening. Layering pleural effusions with bibasilar consolidation, left greater than right with progression compared to the prior study. Degenerative changes of the shoulders and spine. A right upper quadrant stent is redemonstrated along with right upper quadrant surgical clips. Calcified granulomata of the spleen. Midabdominal anastomotic sutures are again noted along with gaseous distention of the mid abdominal bowel anastomosis. Air is also noted within the large bowel. IMPRESSION: 1. Cardiomegaly with probable pulmonary edema. 2. Increased size of the layering pleural effusions with bibasilar consolidation, left greater than right. 3. Mild gaseous distention of the large and small bowel with distention of the mid abdominal small bowel anastomosis redemonstrated. ACT 112: Negative or not required by law. The above report was generated using voice recognition software. It may contain grammatical, syntax or spelling errors. Electronically signed by: Sujit Velarde M.D. 02/26/2025 9:25 AM Portal Vein US 02/26/25 07:00 DOPPLER ULTRASOUND OF THE PORTAL VEINS CLINICAL HISTORY: Abdominal distention. COMPARISON STUDY: Abdominal CT dated 01/30/2025. TECHNIQUE: Real-time, grayscale and color Doppler sonography of the hepatic and portal vasculature is performed. FINDINGS: The right hepatic lobe is surgically absent. The right portal vein was not visualized. The left portal vein is patent with normal direction of flow. Imaged portions of the main portal vein appear patent at the hepatic hilum. This is not well assessed near the portosplenic confluence. IMPRESSION: 1. Imaged portions of the main portal vein near the hilum are patent, as is the left portal vein. 2. The portal vein is not well-visualized near the portosplenic confluence. 3. The right portal vein is surgically absent and not visualized. Dictated: 02/26/2025 11:34 AM Transcribed: 02/26/2025 12:24 PM Sammy [id number] [email or web address] Electronically signed by: Warren Pink M.D. 02/26/2025 1:31 PM Abdomen/Pelvis CT 02/26/25 13:[address] WITHOUT CONTRAST CT DOSE: 1226.52 mGy.cm HISTORY: Acute generalized abdominal pain with reported intra-abdominal fluid collection assess fluid collection TECHNIQUE: Multiaxial CT images of the abdomen and pelvis were performed without contrast. A dose lowering technique was utilized adhering to the principles of ALARA. COMPARISON STUDY: CT abdomen and pelvis 01/30/2025 and also 10/20/2024, ultrasound study 02/26/2025. FINDINGS: Moderate layering pleural effusions, left greater than right with dependent bibasilar consolidation. Intralobular septal thickening suggestive of interstitial pulmonary edema. Calcified right hilar lymph nodes. Calcified granulomata of the spleen redemonstrated. Pancreatic atrophy with scattered parenchymal calcifications again noted compatible with sequela of chronic pancreatitis. Common bile duct stent appears in similar position compared to 01/30/2025. Cholecystectomy. Nonspecific gastrohepatic and periportal lymphadenopathy redemonstrated. Partial resection of the right hepatic lobe. Pneumobilia compatible with stent patency. Previously noted ill- defined hypodense lesion of the liver is normal seen on this noncontrast study. Mildly progressed pericardial lymphadenopathy includes a 1.9 x 0.9 cm lymph node on image 43 series 3. Unremarkable kidneys. No hydronephrosis. Urinary bladder wall thickening with partial distention. Atherosclerosis of the aorta without aneurysm. Anasarca. Distal esophageal wall thickening with small hiatal hernia. There is diffuse wall thickening noted throughout the colon. Several loops of small bowel also demonstrates circumferential wall thickening with scattered air-fluid levels. Unchanged dilation of the mid abdominal small bowel anastomosis. A few loops of small bowel within the right mid abdomen measure up to 4 cm, previously 3.2 cm. No acute fracture. Loculated ascites with peripheral and peritoneal enhancement appears similar dating back to numerous studies. L1 compression deformity is unchanged. Gynecomastia. IMPRESSION: 1. Fluid overload with moderate pleural effusions and anasarca. Ocular abdominal pelvic ascites with peritoneal enhancement is a chronic finding and appears similar from numerous prior studies. 2. Postoperative changes of the abdomen and pelvis redemonstrated with partial hepatectomy and common bile duct stent in place. Pneumobilia confirms stent patency. 3. Diffuse wall thickening of the colon likely related to the volume overload. A nonspecific colitis could appear similarly. 4. Mildly progressed dilation of the small bowel compared to the 01/30/2025 study suggests a probable ileus. A low-grade small bowel however remains within the differential. 5. Unchanged upper abdominal lymphadenopathy with mildly progressed epicardial lymphadenopathy. 6. Chronic findings as above. ACT 112: Negative or not required by law. The above report was generated using voice recognition software. It may contain grammatical, syntax or spelling errors. Electronically signed by: Sujit Velarde M.D. 02/26/2025 3:29 PM Chest X-Ray 02/26/25 17:37 HISTORY: Tube placement. TECHNIQUE: Portable AP radiograph of the chest. COMPARISON: Chest radiograph dated 02/23/2025. FINDINGS: Appropriately positioned NG tube with tip overlying the stomach. Moderate to large left pleural effusion. Small right pleural effusion. Left lower lung opacity. No pneumothorax. IMPRESSION: * Appropriately positioned NG tube. * Moderate to large left and small right pleural effusion. * Similar left mid and lower lung airspace opacity, which could represent compressive atelectasis or pneumonia. Electronically signed by Ivan Gregg 02-26-2025 9:08 PM PG Care Time/CCT Total # of Minutes Spent Total Time Spent with Patient: Total time spent is greater than 50% in coordination of care (as documented) at patient's floor/unit and/or counseling patient: Coding Level of Care Code 52537 SUB INP/OBS CARE 2MIN Diagnoses Chronic liver disease and cirrhosis K74.60; K76.9
--- NOTE | 2025-02-27 09:23 | Hospitalist Progress Note ---
Date of Service February 27, 2025 Assessment & Plan (1) Generalized weakness: (2) GERD (gastroesophageal reflux disease): (3) Nausea & vomiting: (4) Decreased oral intake: (5) Dehydration: (6) Hyponatremia: (7) Hypothyroidism: (8) End stage liver disease: (9) Controlled type 2 diabetes mellitus, with long-term current use of insulin: (10) Anticoagulant long-term use: (11) Superior mesenteric vein thrombosis: (12) Anxiety and depression: Plan Pt is a 69 yo male with a past medical hx of ESLD with hx of portal vein thrombosis now on warfarin chronically, hypothyroidism, GERD, T2DM on insulin, and hx esophageal varices admitted for weakness. Still feeling nauseous with any attempt at eating, sounds partly physical and partly psychological/anticipatory. Weakness // Physical deconditioning (uses walker at baseline) Decreased PO intake - Suspect progressively worsening weakness may be a combination of baseline physical deconditioning as has been seen in previous admissions, plus nausea leading to decreased PO intake and > 2 episodes of non bloody emesis daily. Likely some component of food aversion, given frequent nausea and desire to avoid provoking sx. - Weight loss of 3 kg compared to 02/02 - Patient encouraged to eat whatever appeared appetizing to him for now and will add mIVF until intake improves. Had informal nutritional counseling w/ patient 02/24 to emphasize need to try as much food as he can tolerate w/o sx, rather than anticipating sx. Best strategy for him will likely be frequent snacks/small meals - GI consulted, appreciate recs and whether pt is appropriate for EGD - Pt had EGD July 2024, which showed portal hypertensive gastropathy, small hiatal hernia, portal duodenopathy. - Ordered Abd series, Abd US, Portal vein US - results do not provide adequate explanation of sx - Once weakness and PO intake improves, will need PT/OT evaluation - Due to lack of clear pathology behind sx, other than food aversion, will discuss NG tube with pt and family. If agreeable, plan to drop NG tonight and start TF at 10ml/hr and increase by 10 q3h as tolerated. Can consult oceanographer geological if needed next weekday Nausea / Vomiting GERD - Daily nausea and > 2 episodes of non bloody emesis leading to decreased PO intake - Given emesis happens more often in the morning when waking up and a few minutes after laying down, could have a component of acid reflux contributing to nausea - Continue Zofran prn for nausea with Compazine to be used for breakthrough nausea - Continue Protonix 40 mg PO and Pepcid 20 mg - Miralax daily Hyponatremia - Labs today showing Na of 128 (was 136 on 02/12); no sxs - Likely related to poor PO intake and only drinking water daily - s/p NSS 1L bolus x2 in ED; continue with LR at maintenance rate after - Encourage PO intake as mentioned above and monitor am labs Portal vein thrombosis / Chronic Warfarin use (INR goal 2-3) - Currently on Warfarin and Vitamin K. Follows Anticoagulation Clinic - INR of 2.9 today at goal. ESLD - Follows hepatology as an outpatient - On transplant list, but told he is currently too frail and would need to get stronger DM-II - Continue Lantus and SSI Hypothyroidism - Continue Levothyroxine Anxiety - Will hold home BZD due to current weakness and dizziness/imbalance Dispo: Med/Surg Fluids: LR @ 100 ml/hr Diet: Regular; ADAT Code Status: DNI Admission and Anticipated Discharge Date Admission Date: February 23, 2025 Supervising Physician Co-Signing Physician Notes I personally examined the patient and verified all trivedi points of history and exam, discussed case, and agree with decision making with Dr Yost Not happy with NG tube, but is tolerating tube feeds well. When reiterating risk/benefit of his current situation, he expresses understanding. Vitals noted, in general he is awake and alert pleasant fatigued. Breathing unlabored no accessory muscle use good effort. Skin without rashes pallor or icterus. Neuro without focal deficits. Abdomen soft mild distention mild tenderness no guarding rebound or rigidity nauseatrial of tube feeds - ?aversion nausea vs truly can't tolerate. thus far tolerating feeding. Current GI coverage also questioning if he has a degree of intestinal edemaconsider diuretics, but if he is tolerating tube feeds, it also look at the edema is more of an anasarca from malnutrition and avoid diuresis unless he is failing to tolerate the tube feeds. protein calorie malnutritionacutely seems to be severe given his weakness and the fact that he looks more muscle wasting and emaciatednutrition consult, ongoing coaching on adequate nutritionright now probably will be more important to target a calorie goals and necessarily quality. Starting tube feeds. See above, and consulted dietitian, input greatly appreciated DeconditioningPT/OT eval and treat end-stage liver disease/cirrhosistransplant candidatebut right now frail enough that he has been told that they may not be able to proceed with surgery even if he had a match and was at the top of the list. Seems that we need to do everything we can to help him with the malnutrition and deconditioning otherwise as above Subjective Aaron Pryor is seen this afternoon resting comfortably. Patient denies chest pain, palpitations, SOB, cough, abdominal pain, nausea, and vomiting. Patient reports that he is tolerating tube feeds w/o issue, but does report that he still feels weak. Patient is amenable to PT/OT to help build muscle strength. Patient remains afebrile and hemodynamically stable. Physical Exam Physical Exam: General: patient resting comfortably, NAD, non-toxic in appearance, answers questions appropriately. Skin: warm, dry, intact HEENT: NC/AT, anicteric sclera, conjunctiva without injection, moist mucus membranes. Heart: +S1/S2, regular, no m/r/g Lungs: equal air entry bilaterally, no rales/rhonchi/wheezes Abd: +BS, soft, NT/ND Ext: warm, no clubbing/cyanosis or edema Neuro: nonfocal, speech intact, no facial droop, moving all extremities. Results & Data Results & Data Vital Signs (Past 12 Hours) Vital Signs Temp Pulse Resp BP Pulse Ox O2 Del Method 02/27/25 07:07 36.4 C L 88 16 105/69 91 Room Air 02/26/25 23:42 36.5 C 85 16 115/68 90 Room Air (2) GERD (gastroesophageal reflux disease) Esophagitis presence: without esophagitis Qualified Code(s): K21.9 - Gastro- esophageal reflux disease without esophagitis (3) Nausea & vomiting Vomiting type: unspecified Qualified Code(s): R11.2 - Nausea with vomiting, unspecified (7) Hypothyroidism Hypothyroidism type: unspecified Qualified Code(s): E03.9 - Hypothyroidism, unspecified
--- NOTE | 2025-02-27 09:52 | XRay Report ---
4 views of the chest and abdomen were obtained Comparison is made to the chest radiograph dated 02/26/2025 Findings: There is an unchanged moderate sized left pleural effusion. There is a suspected small right pleural effusion. There are increased bilateral lower lobe opacities that could be due to either atelectasis or pneumonia. The heart size is within normal limits There is a nasogastric tube with its tip within the stomach Gas is seen within normal caliber segments of small and large bowel. No definite renal or ureteral calculi are seen. There are surgical clips in the right upper quadrant. There is a right upper quadrant stent also. There is mild scoliosis and degenerative disc disease Impression: 1. Left larger than right pleural effusions 2. Increased bilateral lower lobe opacities that could be due to pneumonia 3. Nasogastric tube with its tip within the stomach 4. No definite sign of bowel obstruction ACT 112: Positive. There are findings on this exam that require communication between the performing entity and the patient following Patient Test Result Information Act ([place] ACT 112) guidelines. Electronically signed by Karel Bishop 02-27-2025 09:52 AM
--- NOTE | 2025-02-27 13:57 | Billing Data ---
Date of Service February 27, 2025 Coding Level of Care Code 60166 SUB INP/OBS CARE MIN
[2025-02-28 08:43] LABS: Alanine Aminotransferase 30.0 U/L (7-52); Albumin Globulin Ratio 0.4 (0.9-2); Albumin Level 1.8 gm/dl (3.4-5.0); Alkaline Phosphatase 271.0 U/L (34-104); Anion Gap 5.0 (3-11); Bilirubin,Total 2.6 mg/dl (0.2-1.0); Blood Urea Nitrogen 11.0 mg/dl (6-23); Calcium 7.8 mg/dl (8.6-10.3); Carbon Dioxide 27.0 mmol/L (21-32); Chloride 98.0 mmol/L (98-107); Creatinine Clr Calc Pharmacy 94.7 ml/min; Globulin 4.9 gm/dl (2.5-4.0); Glucose 158.0 mg/dl (70-99(Fasting)); Magnesium 1.6 mg/dl (1.7-2.4); Potassium 3.7 mmol/L (3.5-5.1); Sodium 130.0 mmol/L (136-145); Total Protein 6.7 gm/dl (6.0-8.3)
[2025-02-28 08:56] LABS: INR 2.2 (0.9-1.1); Prothrombin Time 22.4 Seconds (9.0-12.0)
--- NOTE | 2025-02-28 09:14 | Gastroenterology Progress Note ---
Date of Service February 28, 2025 Assessment & Plan (1) Chronic liver disease and cirrhosis: Plan: Complicated by anasarca pleural effusions and ascites. Would consider trial of diuretic therapy to help mobilize fluid. Abdominal x-ray does not show a significant ileus or SBO. G-tube not necessary unless he requires it for enteral tube feeds. Could consider trying oral feeds to see if he could take adequate nutrition on his own. Admission and Anticipated Discharge Date Admission Date: February 23, 2025 Subjective Denies abdominal pain shortness of breath or chest pain Physical Exam Physical Exam: No acute distress Respiratory rate regular Cardiac rhythm regular Abdomen soft nontender No asterixis Results & Data Results & Data Vital Signs (Past 12 Hours) Vital Signs Temp Pulse Resp BP Pulse Ox O2 Del Method 02/28/25 07:24 36.5 C 86 16 104/57 L 92 Room Air 02/28/25 01:08 92 H 18 133/72 91 Room Air 02/27/25 21:36 36.5 C 94 H 18 97/60 L 90 Room Air Laboratory Results Laboratory Results - last 48 hr 02/26/25 02/26/25 02/26/25 11:36 16:24 21:09 WBC RBC Hgb Hct MCV MCH MCHC RDW Std Deviation RDW Coeff of Debby Plt Count MPV Immature Gran % (Auto) Neut % (Auto) Lymph % (Auto) [place] % (Auto) Eos % (Auto) Baso % (Auto) Neut # (Auto) Lymph # (Auto) [place] # (Auto) Eos # (Auto) Baso # (Auto) Immature Gran # (Auto) Absolute Nucleated RBC Nucleated RBC % (auto) Neutrophils % (Manual) Band Neutrophils % Lymphocytes % (Manual) Prolymphocyte % Reactive Lymphs % (Man) Monocytes % (Manual) Eosinophils % (Manual) Basophils % (Manual) Metamyelocytes % (Man) Myelocytes % (Man) Promyelocytes % (Man) Blast Cells % (Manual) Plasma Cell % (Manual) Other Cells % Nucleated RBC % Neutrophils # (Manual) Band Neutrophils # Total Absolute Neuts Lymphocytes # (Manual) Prolymphocyte # Reactive Lymphs # Total Abs Lymphocytes Monocytes # (Manual) Eosinophils # (Manual) Basophils # (Manual) Metamyelocytes # (Man) Myelocytes # (Manual) Promyelocytes # (Man) Blast Cells # (Man) Plasma Cell # (Manual) Other Cells # Nucleated RBCs # (Man) Hypersegmented Neuts Hyposegmented Neuts Hypogranular Neuts Large Granular Lymphs # Lrg Granular Lymphs Hairy Cells Smudge Cells Toxic Granulation Toxic Vacuolation Dohle Bodies Letty Rods Platelet Estimate Hypogranular Platelets Giant Platelets Platelet Satelliting RBC Morphology Polychromasia Hypochromasia Poikilocytosis Basophilic Stippling Anisocytosis Microcytosis Macrocytosis Spherocytes Pappenheimer Bodies Sickle Cells Target Cells Tear Drop Cells Ovalocytes Stomatocytes Fontaine-Strathmore Bodies Echinocytes Acanthocytes (Spur) Rouleaux RBC Agglutinates Schistocytes Sezary Cell PT INR Sodium Potassium Chloride Carbon Dioxide Anion Gap BUN Creatinine Est Cr Clr Drug Dosing eGFR BUN/Creatinine Ratio Glucose POC Glucose 78 103 H 75 Calcium Phosphorus Magnesium Total Bilirubin AST ALT Alkaline Phosphatase Total Protein Albumin Globulin Albumin/Globulin Ratio Blood Parasites ID 02/27/25 02/27/25 02/27/25 05:40 07:47 11:45 WBC 13.80 H RBC 3.30 L Hgb 11.1 L Hct 32.4 L MCV 98.2 MCH 33.6 MCHC 34.3 RDW Std Deviation 62.3 H RDW Coeff of Debby 17.6 H Plt Count 307 MPV 9.6 Immature Gran % (Auto) 1.4 Neut % (Auto) 82.8 Lymph % (Auto) 4.6 [place] % (Auto) 8.6 Eos % (Auto) 2.2 Baso % (Auto) 0.4 Neut # (Auto) 11.45 H Lymph # (Auto) 0.63 L [place] # (Auto) 1.18 H Eos # (Auto) 0.30 Baso # (Auto) 0.05 Immature Gran # (Auto) 0.19 Absolute Nucleated RBC Nucleated RBC % (auto) Neutrophils % (Manual) Band Neutrophils % Lymphocytes % (Manual) Prolymphocyte % Reactive Lymphs % (Man) Monocytes % (Manual) Eosinophils % (Manual) Basophils % (Manual) Metamyelocytes % (Man) Myelocytes % (Man) Promyelocytes % (Man) Blast Cells % (Manual) Plasma Cell % (Manual) Other Cells % Nucleated RBC % Neutrophils # (Manual) Band Neutrophils # Total Absolute Neuts Lymphocytes # (Manual) Prolymphocyte # Reactive Lymphs # Total Abs Lymphocytes Monocytes # (Manual) Eosinophils # (Manual) Basophils # (Manual) Metamyelocytes # (Man) Myelocytes # (Manual) Promyelocytes # (Man) Blast Cells # (Man) Plasma Cell # (Manual) Other Cells # Nucleated RBCs # (Man) Hypersegmented Neuts Hyposegmented Neuts Hypogranular Neuts Large Granular Lymphs # Lrg Granular Lymphs Hairy Cells Smudge Cells Toxic Granulation Toxic Vacuolation Dohle Bodies Letty Rods Platelet Estimate Hypogranular Platelets Giant Platelets Platelet Satelliting RBC Morphology Polychromasia Hypochromasia Poikilocytosis Basophilic Stippling Anisocytosis Microcytosis Macrocytosis Spherocytes Pappenheimer Bodies Sickle Cells Target Cells Tear Drop Cells Ovalocytes Stomatocytes Fontaine-Strathmore Bodies Echinocytes Acanthocytes (Spur) Rouleaux RBC Agglutinates Schistocytes Sezary Cell PT 28.9 H INR 2.9 H Sodium 129 L Potassium 3.8 Chloride 98 Carbon Dioxide 26 Anion Gap 5 BUN 11 Creatinine 0.79 Est Cr Clr Drug Dosing 89.9 eGFR 96.77 BUN/Creatinine Ratio 13.9 Glucose 95 POC Glucose 102 H 121 H Calcium 7.7 L Phosphorus 2.7 Magnesium 1.5 L Total Bilirubin 2.9 H AST 69 H ALT 30 Alkaline Phosphatase 267 H Total Protein 6.4 Albumin 1.8 L Globulin 4.6 H Albumin/Globulin Ratio 0.4 L Blood Parasites ID 02/27/25 02/27/25 02/28/25 16:35 20:23 07:26 WBC RBC Hgb Hct MCV MCH MCHC RDW Std Deviation RDW Coeff of Debby Plt Count MPV Immature Gran % (Auto) Neut % (Auto) Lymph % (Auto) [place] % (Auto) Eos % (Auto) Baso % (Auto) Neut # (Auto) Lymph # (Auto) [place] # (Auto) Eos # (Auto) Baso # (Auto) Immature Gran # (Auto) Absolute Nucleated RBC Nucleated RBC % (auto) Neutrophils % (Manual) Band Neutrophils % Lymphocytes % (Manual) Prolymphocyte % Reactive Lymphs % (Man) Monocytes % (Manual) Eosinophils % (Manual) Basophils % (Manual) Metamyelocytes % (Man) Myelocytes % (Man) Promyelocytes % (Man) Blast Cells % (Manual) Plasma Cell % (Manual) Other Cells % Nucleated RBC % Neutrophils # (Manual) Band Neutrophils # Total Absolute Neuts Lymphocytes # (Manual) Prolymphocyte # Reactive Lymphs # Total Abs Lymphocytes Monocytes # (Manual) Eosinophils # (Manual) Basophils # (Manual) Metamyelocytes # (Man) Myelocytes # (Manual) Promyelocytes # (Man) Blast Cells # (Man) Plasma Cell # (Manual) Other Cells # Nucleated RBCs # (Man) Hypersegmented Neuts Hyposegmented Neuts Hypogranular Neuts Large Granular Lymphs # Lrg Granular Lymphs Hairy Cells Smudge Cells Toxic Granulation Toxic Vacuolation Dohle Bodies Letty Rods Platelet Estimate Hypogranular Platelets Giant Platelets Platelet Satelliting RBC Morphology Polychromasia Hypochromasia Poikilocytosis Basophilic Stippling Anisocytosis Microcytosis Macrocytosis Spherocytes Pappenheimer Bodies Sickle Cells Target Cells Tear Drop Cells Ovalocytes Stomatocytes Fontaine-Strathmore Bodies Echinocytes Acanthocytes (Spur) Rouleaux RBC Agglutinates Schistocytes Sezary Cell PT INR Sodium Potassium Chloride Carbon Dioxide Anion Gap BUN Creatinine Est Cr Clr Drug Dosing eGFR BUN/Creatinine Ratio Glucose POC Glucose 138 H 143 H 176 H Calcium Phosphorus Magnesium Total Bilirubin AST ALT Alkaline Phosphatase Total Protein Albumin Globulin Albumin/Globulin Ratio Blood Parasites ID 02/28/25 08:01 WBC Cancelled RBC Cancelled Hgb Cancelled Hct Cancelled MCV Cancelled MCH Cancelled MCHC Cancelled RDW Std Deviation Cancelled RDW Coeff of Debby Cancelled Plt Count Cancelled MPV Cancelled Immature Gran % (Auto) Cancelled Neut % (Auto) Cancelled Lymph % (Auto) Cancelled [place] % (Auto) Cancelled Eos % (Auto) Cancelled Baso % (Auto) Cancelled Neut # (Auto) Cancelled Lymph # (Auto) Cancelled [place] # (Auto) Cancelled Eos # (Auto) Cancelled Baso # (Auto) Cancelled Immature Gran # (Auto) Cancelled Absolute Nucleated RBC Cancelled Nucleated RBC % (auto) Cancelled Neutrophils % (Manual) Cancelled Band Neutrophils % Cancelled Lymphocytes % (Manual) Cancelled Prolymphocyte % Cancelled Reactive Lymphs % (Man) Cancelled Monocytes % (Manual) Cancelled Eosinophils % (Manual) Cancelled Basophils % (Manual) Cancelled Metamyelocytes % (Man) Cancelled Myelocytes % (Man) Cancelled Promyelocytes % (Man) Cancelled Blast Cells % (Manual) Cancelled Plasma Cell % (Manual) Cancelled Other Cells % Cancelled Nucleated RBC % Cancelled Neutrophils # (Manual) Cancelled Band Neutrophils # Cancelled Total Absolute Neuts Cancelled Lymphocytes # (Manual) Cancelled Prolymphocyte # Cancelled Reactive Lymphs # Cancelled Total Abs Lymphocytes Cancelled Monocytes # (Manual) Cancelled Eosinophils # (Manual) Cancelled Basophils # (Manual) Cancelled Metamyelocytes # (Man) Cancelled Myelocytes # (Manual) Cancelled Promyelocytes # (Man) Cancelled Blast Cells # (Man) Cancelled Plasma Cell # (Manual) Cancelled Other Cells # Cancelled Nucleated RBCs # (Man) Cancelled Hypersegmented Neuts Cancelled Hyposegmented Neuts Cancelled Hypogranular Neuts Cancelled Large Granular Lymphs Cancelled # Lrg Granular Lymphs Cancelled Hairy Cells Cancelled Smudge Cells Cancelled Toxic Granulation Cancelled Toxic Vacuolation Cancelled Dohle Bodies Cancelled Letty Rods Cancelled Platelet Estimate Cancelled Hypogranular Platelets Cancelled Giant Platelets Cancelled Platelet Satelliting Cancelled RBC Morphology Cancelled Polychromasia Cancelled Hypochromasia Cancelled Poikilocytosis Cancelled Basophilic Stippling Cancelled Anisocytosis Cancelled Microcytosis Cancelled Macrocytosis Cancelled Spherocytes Cancelled Pappenheimer Bodies Cancelled Sickle Cells Cancelled Target Cells Cancelled Tear Drop Cells Cancelled Ovalocytes Cancelled Stomatocytes Cancelled Fontaine-Strathmore Bodies Cancelled Echinocytes Cancelled Acanthocytes (Spur) Cancelled Rouleaux Cancelled RBC Agglutinates Cancelled Schistocytes Cancelled Sezary Cell Cancelled PT 22.4 H INR 2.2 H Sodium 130 L Potassium 3.7 Chloride 98 Carbon Dioxide 27 Anion Gap 5 BUN 11 Creatinine 0.75 Est Cr Clr Drug Dosing 94.7 eGFR 98.30 BUN/Creatinine Ratio 14.7 Glucose 158 H POC Glucose Calcium 7.8 L Phosphorus 2.3 L Magnesium 1.6 L Total Bilirubin 2.6 H AST 60 H ALT 30 Alkaline Phosphatase 271 H Total Protein 6.7 Albumin 1.8 L Globulin 4.9 H Albumin/Globulin Ratio 0.4 L Blood Parasites ID Cancelled Diagnostic Findings Chest/Abdomen X-ray 02/27/25 07:18 4 views of the chest and abdomen were obtained Comparison is made to the chest radiograph dated 02/26/2025 Findings: There is an unchanged moderate sized left pleural effusion. There is a suspected small right pleural effusion. There are increased bilateral lower lobe opacities that could be due to either atelectasis or pneumonia. The heart size is within normal limits There is a nasogastric tube with its tip within the stomach Gas is seen within normal caliber segments of small and large bowel. No definite renal or ureteral calculi are seen. There are surgical clips in the right upper quadrant. There is a right upper quadrant stent also. There is mild scoliosis and degenerative disc disease Impression: 1. Left larger than right pleural effusions 2. Increased bilateral lower lobe opacities that could be due to pneumonia 3. Nasogastric tube with its tip within the stomach 4. No definite sign of bowel obstruction ACT 112: Positive. There are findings on this exam that require communication between the performing entity and the patient following Patient Test Result Information Act ([place] ACT 112) guidelines. Electronically signed by Karel Bishop 02-27-2025 09:52 AM PG Care Time/CCT Total # of Minutes Spent Total Time Spent with Patient: Total time spent is greater than 50% in coordination of care (as documented) at patient's floor/unit and/or counseling patient: Coding Level of Care Code 28009 SUB INP/OBS CARE 2/35MIN Diagnoses Chronic liver disease and cirrhosis K74.60; K76.9
--- NOTE | 2025-02-28 10:06 | Hospitalist Progress Note ---
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 Still feeling nauseous with any attempt at eating, sounds partly physical and partly psychological/anticipatory. Weakness // Physical deconditioning (uses walker at baseline) Decreased PO intake - Suspect progressively worsening weakness may be a combination of baseline physical deconditioning as has been seen in previous admissions, plus nausea leading to decreased PO intake and > 2 episodes of non bloody emesis daily. Likely some component of food aversion, given frequent nausea and desire to avoid provoking sx. - Weight loss of 3 kg compared to 02/02 - Patient encouraged to eat whatever appeared appetizing to him for now and will add mIVF until intake improves. Had informal nutritional counseling w/ patient 02/24 to emphasize need to try as much food as he can tolerate w/o sx, rather than anticipating sx. Best strategy for him will likely be frequent snacks/small meals - GI consulted, appreciate recs and whether pt is appropriate for EGD - Pt had EGD July 2024, which showed portal hypertensive gastropathy, small hiatal hernia, portal duodenopathy. - Ordered Abd series, Abd US, Portal vein US - results do not provide adequate explanation of sx - Once weakness and PO intake improves, will need PT/OT evaluation - Due to lack of clear pathology behind sx, other than food aversion, will discuss NG tube with pt and family. If agreeable, plan to drop NG tonight and start TF at 10ml/hr and increase by 10 q3h as tolerated. Can consult workday manager if needed next weekday Nausea / Vomiting GERD - Daily nausea and > 2 episodes of non bloody emesis leading to decreased PO intake - Given emesis happens more often in the morning when waking up and a few minutes after laying down, could have a component of acid reflux contributing to nausea - Continue Zofran prn for nausea with Compazine to be used for breakthrough nausea - Continue Protonix 40 mg PO and Pepcid 20 mg - Miralax daily Hyponatremia - Labs today showing Na of 128 (was 136 on 02/12); no sxs - Likely related to poor PO intake and only drinking water daily - s/p NSS 1L bolus x2 in ED; continue with LR at maintenance rate after - Encourage PO intake as mentioned above and monitor am labs Portal vein thrombosis / Chronic Warfarin use (INR goal 2-3) - Currently on Warfarin and Vitamin K. Follows Anticoagulation Clinic - INR of 2.9 today at goal. ESLD - Follows hepatology as an outpatient - On transplant list, but told he is currently too frail and would need to get stronger DM-II - Continue Lantus and SSI Hypothyroidism - Continue Levothyroxine Anxiety - Will hold home BZD due to current weakness and dizziness/imbalance Dispo: Med/Surg Fluids: LR @ 100 ml/hr Diet: Regular; ADAT Code Status: DNI Admission and Anticipated Discharge Date Admission Date: February 23, 2025 Supervising Physician Co-Signing Physician Notes I personally examined the patient and verified all trivedi points of history and exam, discussed case, and agree with decision making with Dr Yost still not happy with NG tube, but is tolerating tube feeds well. When reiterating risk/benefit of his current situation, he expresses understanding. now up to 40ml/hr, no abdominal pain, no nausea, no vomiting. Vitals noted, in general he is awake and alert pleasant fatigued. Breathing unlabored no accessory muscle use good effort. Skin without rashes pallor or icterus. Neuro without focal deficits. nauseatrial of tube feeds - ?aversion nausea vs truly can't tolerate being the differential - tried for ~3 days with coaching/outlining nutritional goals, med management, etc - totally failed. after d/w pt and family decided to give trial to NG tube feeds to determine if he actually can't tolerate or if it's more of an aversion/fear/can't make himself eat. thus far tolerating feeding well. Current GI coverage also questioning if he has a degree of intestinal edemaconsider diuretics, but if he is tolerating tube feeds, it also look at the edema is more of an anasarca from malnutrition and avoid diuresis unless he is failing to tolerate the tube feeds. probably would continue tube feeds at goal for a few days while encouraging him to eat around the tube, and then if he's showing success, DC NG and get back to eating normally. protein calorie malnutritionacutely seems to be severe given his weakness and the fact that he looks more muscle wasting and emaciatednutrition consult, ongoing coaching on adequate nutritionright now probably will be more important to target a calorie goals and necessarily quality. Starting tube feeds. See above, and consulted dietitian, input greatly appreciated DeconditioningPT/OT eval and treat end-stage liver disease/cirrhosistransplant candidatebut right now frail enough that he has been told that they may not be able to proceed with surgery even if he had a match and was at the top of the list. Seems that we need to do everything we can to help him with the malnutrition and deconditioning (hence the tube feed trial, because if he continues to fail w PO intake, we've discussed that he essntially would be falling backwards into palliative goals and that is not at all in line with his goals at this time) otherwise as above Subjective Patient is seen resting comfortably this AM. Patient endorses that his NG tube is uncomfortable but otherwise does not have acute complaints or concerns. patient denies SOB, chest pain, palpitations, abdominal pain, nausea, and vomiting. Patient is tolerating jello and clear liquid diet w/o nausea. Patient remains afebrile and hemodynamically stable. Physical Exam Physical Exam: General: patient resting comfortably, NAD, non-toxic in appearance, answers questions appropriately. Skin: warm, dry, intact HEENT: NC/AT, anicteric sclera, conjunctiva without injection, moist mucus membranes. Heart: +S1/S2, regular, no m/r/g Lungs: equal air entry bilaterally, no rales/rhonchi/wheezes Abd: +BS, soft, NT/ND Ext: warm, no clubbing/cyanosis or edema Neuro: nonfocal, speech intact, no facial droop, moving all extremities. Results & Data Results & Data Vital Signs (Past 12 Hours) Vital Signs Temp Pulse Resp BP Pulse Ox O2 Del Method 02/28/25 07:24 36.5 C 86 16 104/57 L 92 Room Air 02/28/25 01:08 92 H 18 133/72 91 Room Air Resident Activity Tracking Resident Involvement: Resident Care Provided Care Provided: Adult Hospital Medicine (2) GERD (gastroesophageal reflux disease) Esophagitis presence: without esophagitis Qualified Code(s): K21.9 - Gastro- esophageal reflux disease without esophagitis (3) Nausea & vomiting Vomiting type: unspecified Qualified Code(s): R11.2 - Nausea with vomiting, unspecified (7) Hypothyroidism Hypothyroidism type: unspecified Qualified Code(s): E03.9 - Hypothyroidism, unspecified
[2025-02-28 10:39] LABS: Hematocrit (blood only) 34.4 % (42.0-52.0); Hemoglobin 11.5 g/dL (14.0-18.0); Immature Granulocytes # (auto) 0.15 K/uL (0.01-0.20); Immature Granulocytes % (auto) 1.2 %; Mean Corpuscular Hemoglobin 33.8 pg (25.0-34.0); Mean Corpuscular Volume 101.2 fL (80.0-100.0); Platelet Count 302 K/uL (130-400); RDW Standard Deviation 65.5 fL (36.4-46.3); Red Blood Count 3.40 M/uL (4.70-6.10); White Blood Count 12.10 K/ul (4.8-10.8)
[2025-02-28] MEDS: CALCIUM CARBONATE 500 MG CHEWABLE TAB PO PRN (11:17)
--- NOTE | 2025-02-28 14:02 | Billing Data ---
Date of Service February 28, 2025 Coding Level of Care Code 86477 SUB INP/OBS CARE MIN
[2025-03-01] MEDS: PROCHLORPERAZINE 5 MG in SYRINGE 4 ML IV PRN (00:03)
[2025-03-01 04:27] LABS: Hematocrit (blood only) 33.3 % (42.0-52.0); Hemoglobin 11.6 g/dL (14.0-18.0); Immature Granulocytes # (auto) 0.16 K/uL (0.01-0.20); Immature Granulocytes % (auto) 1.1 %; Mean Corpuscular Hemoglobin 34.5 pg (25.0-34.0); Mean Corpuscular Volume 99.1 fL (80.0-100.0); Platelet Count 303 K/uL (130-400); RDW Standard Deviation 62.5 fL (36.4-46.3); Red Blood Count 3.36 M/uL (4.70-6.10); White Blood Count 14.40 K/ul (4.8-10.8)
[2025-03-01 04:44] LABS: Alanine Aminotransferase 30.0 U/L (7-52); Albumin Globulin Ratio 0.4 (0.9-2); Albumin Level 1.9 gm/dl (3.4-5.0); Alkaline Phosphatase 266.0 U/L (34-104); Anion Gap 7.0 (3-11); Bilirubin,Total 2.6 mg/dl (0.2-1.0); Blood Urea Nitrogen 11.0 mg/dl (6-23); Calcium 7.7 mg/dl (8.6-10.3); Carbon Dioxide 23.0 mmol/L (21-32); Chloride 99.0 mmol/L (98-107); Creatinine Clr Calc Pharmacy 110.9 ml/min; Globulin 4.9 gm/dl (2.5-4.0); Glucose 155.0 mg/dl (70-99(Fasting)); Magnesium 1.6 mg/dl (1.7-2.4); Potassium 3.9 mmol/L (3.5-5.1); Sodium 129.0 mmol/L (136-145); Total Protein 6.8 gm/dl (6.0-8.3)
[2025-03-01 04:55] LABS: INR 1.9 (0.9-1.1); Prothrombin Time 19.7 Seconds (9.0-12.0)
--- NOTE | 2025-03-01 10:08 | Gastroenterology Progress Note ---
Date of Service March 01, 2025 Assessment & Plan (1) Chronic liver disease and cirrhosis: Plan: -Continue diuretics -Continue daily lab monitoring with CMP, CBC, PT/INR -2 gm Na restricted diet -Avoidance of liver toxins -Avoid NSAIDs; limit Tylenol to <2000 mg daily divided between q 6 hr doses if needed -Hepatology follow-up upon discharge for further planning, HCC surveillance, and routine care -Continue Xifaxan 550 mg BID and Miralax prn; avoid constipation -Encourage po nutrition Admission and Anticipated Discharge Date Admission Date: February 23, 2025 Supervising Physician Co-Signing Physician Notes I saw and examined this patient with our nurse practitioner and agree with her assessment and plan. Patient without any significant GI symptoms at the present time. Starting clear liquid diet along with tube feeds. Recommend diuretics to help control his extravascular fluid accumulation. Call if any further issues. He should follow-up with his car supervisor as an outpatient once discharged. Subjective Patient is a 69 yo male with cirrhosis and failure to thrive. No new/different complaints this morning.NG tube out. He notes he is eating, but not as much as what everyone would like him to. Review of Systems Constitutional: + fatigue Gastrointestinal: no abdominal pain Physical Exam Gastrointestinal (Abdomen): Inspection/Auscultation: normal bowel sounds Percussion/Palpation: abdomen nontender Results & Data Results & Data Vital Signs (Past 12 Hours) Vital Signs Temp Pulse Pulse Resp BP BP Pulse Ox 03/01/25 07:52 36.7 C 96 H 16 112/70 93 02/28/25 23:30 36.6 C 91 H 18 110/71 91 O2 Del Method 03/01/25 07:52 Room Air 02/28/25 23:30 Room Air PG Care Time/CCT Total # of Minutes Spent Total Time Spent with Patient: Total time spent is greater than 50% in coordination of care (as documented) at patient's floor/unit and/or counseling patient: Coding Level of Care Code 51586 SUB INP/OBS CARE 3/50MIN Diagnoses Chronic liver disease and cirrhosis K74.60; K76.9
--- NOTE | 2025-03-01 12:20 | Hospitalist Progress Note ---
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 Still feeling nauseous with any attempt at eating, sounds partly physical and partly psychological/anticipatory. #Weakness/Physical deconditioning (uses walker at baseline) *Decreased PO intake, with NG tube in situ (inserted on 02/28) - Suspect progressively worsening weakness may be a combination of baseline physical deconditioning as has been seen in previous admissions, plus nausea leading to decreased PO intake and > 2 episodes of non bloody emesis daily. Likely some component of food aversion, given frequent nausea and desire to g[place] id provoking sx. - Weight loss of 3 kg compared to 02/02 - GI consulted, appreciate recs: EGD July 2024: portal hypertensive gastropathy, small hiatal hernia, portal duodenopathy. Ordered Abd series, Abd US, Portal vein US - results do not provide adequate explanation of sx - Due to lack of clear pathology behind sx, other than food aversion, NG tube was inserted. #Nausea / Vomiting *GERD - Daily nausea and > 2 episodes of non bloody emesis leading to decreased PO intake - Given emesis happens more often in the morning when waking up and a few minutes after laying down, could have a component of acid reflux contributing to nausea - Continue Zofran prn for nausea with Compazine to be used for breakthrough nausea - Continue Protonix 40 mg PO and Pepcid 20 mg - Miralax daily Hyponatremia - Labs today showing Na of 129 (was 136 on 02/12); no sxs - Likely related to poor PO intake and only drinking water daily Plan: Encourage PO intake as mentioned above and monitor am labs Portal vein thrombosis / Chronic Warfarin use (INR goal 2-3) - Currently on Warfarin and Vitamin K. Follows Anticoagulation Clinic - INR of 2.9 today at goal. ESLD - Follows hepatology as an outpatient. [facility]. - On transplant list as per patient. - Tried calling today( 03/01) they will call us back. DM-II - Continue Lantus and SSI Hypothyroidism - Continue Levothyroxine Anxiety - Will hold home BZD due to current weakness and dizziness/imbalance Dispo: Pending stability Diet: Regular; ADAT, NG tube in Code Status: DNI Admission and Anticipated Discharge Date Admission Date: February 23, 2025 Supervising Physician Co-Signing Physician Notes Resident Physician Supervision Note: I personally examined the patient and verified all trivedi points of history and exam, discussed case, and agree with decision making with Dr. Sandoval Patient was seen independently he was in good spirits tolerating NG tube but he is also going to try to tolerate some oral feeding. Patient did voice that he is on [facility] transplant list and gave his manufacturing coordinator nurse named Brittani. Patient's pelvic having much discomfort however he is not a fan of the NG tube this was repositioned. Did have some vomiting 1 day prior to this note Examination shows some the anicteric he is in no significant distress NG tube in his right nare card exam is regular lungs are clear abdomen NABS soft and nontender. Assessment intractable nausea and vomiting and moderate malnutrition in the face of end-stage liver disease. Attempt to augment nutrition with NG tube feeding in the hopes of having improved to the point where he may qualify for liver transplantation. Other medical problems include diabetes requiring insulin treated with basal bolus strategy, portal vein thrombosis with chronic warfarin use with chronic hyponatremia I discussed the case with the resident and agree with the findings and plan as documented in the note. Any exceptions or clarifications are listed here: Documented By: Hayden Clement MD Subjective Mr. Pryor 69 yo, male with cirrhosis and failure to thrive. He is on NG tube, He is also eating himself. He had lot of nausea and also threw up last night. Helped by Compazine. After I left, nurse mentioned that he pulled out his NG by accident. Reinserted NG. Review of Systems Review of Systems: As per HPI Physical Exam Physical Exam: Constitutional: Frail appearing, No acute distress. NG tube insitu. HEENT: Atraumatic, Normocephalic, No conjunctival injection CVS: S1 S2 no murmur, Regular Rhythm, no LE edema Respiratory: BL coarse breath sound. No increased work of breathing GI: Soft, Nondistended, Nontender, Normal Bowel sounds + MSK: No gross deformities noted Skin: Warm, Dry, No rashes Neuro: Alert, Oriented to TPP, No Focal deficit Psych: Mood and Affect congruent, Cooperative on exam Results & Data Results & Data Vital Signs (Past 12 Hours) Vital Signs Temp Pulse Resp BP Pulse Ox O2 Del Method 03/01/25 07:52 36.7 C 96 H 16 112/70 93 Room Air Resident Activity Tracking Resident Involvement: Resident Care Provided Care Provided: Adult Hospital Medicine (2) GERD (gastroesophageal reflux disease) Esophagitis presence: without esophagitis Qualified Code(s): K21.9 - Gastro- esophageal reflux disease without esophagitis (3) Nausea & vomiting Vomiting type: unspecified Qualified Code(s): R11.2 - Nausea with vomiting, unspecified (7) Hypothyroidism Hypothyroidism type: unspecified Qualified Code(s): E03.9 - Hypothyroidism, unspecified
--- NOTE | 2025-03-01 12:33 | XRay Report ---
KUB HISTORY: NG tube placement COMPARISON: Radiographs from 02/27/2025 FINDINGS: Distal tip of enteric tube projects over the abdominal left upper quadrant, likely within t he stomach. Right upper quadrant surgical clips and biliary stent are again noted. The bowel gas chapin socorro appears nonobstructive. Cardiomegaly with layering pleural effusions and bibasilar consolidative opacities are again noted. No renal calculi. No ureteral calculi. No pneumoperitoneum or pneumatosis . No fracture. IMPRESSION: Distal tip of enteric tube projects over the expected location of the mid stomach. ACT 112: Negative or not required by law. The above report was generated using voice recognition software. It may contain grammatical, syntax o r spelling errors. Electronically signed by: Sujit Velarde M.D. 03/01/2025 12:32 PM
--- NOTE | 2025-03-01 16:42 | Billing Data ---
Date of Service March 01, 2025 Coding Level of Care Code 48488 SUB INP/OBS CARE
--- NOTE | 2025-03-02 09:15 | Hospitalist Progress Note ---
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 Still feeling nauseous with any attempt at eating, sounds partly physical and partly psychological/anticipatory. #Weakness/Physical deconditioning (uses walker at baseline) *Decreased PO intake, with NG tube in situ (inserted on 02/28) - Suspect progressively worsening weakness may be a combination of baseline physical deconditioning as has been seen in previous admissions, plus nausea leading to decreased PO intake and > 2 episodes of non bloody emesis daily. Likely some component of food aversion, given frequent nausea and desire to g[place] id provoking sx. - Weight loss of 3 kg compared to 02/02 - GI consulted, appreciate recs: EGD July 2024: portal hypertensive gastropathy, small hiatal hernia, portal duodenopathy. Ordered Abd series, Abd US, Portal vein US - results do not provide adequate explanation of sx - Due to lack of clear pathology behind sx, other than food aversion, NG tube was inserted on 02/28. Nutrition following: Appreciate recs. Encourage PO intake, so that we can gradually cut off NG feed. Plan to push feed during night. #Nutritional Rehabilitation BMI: 22. - Patient was already on NG when out team saw him. - NG is not custodial plan for him and should not be. - He is aware of this plan - Meanwhile working on reducing his anxiety/ nausea. - has been tolerating feeds( oral + NG) for last 24 hours. Hence anticipate return of good PO. Plan: Encourage PO - Weight check Q 7 days. - Continue Nutrition counselling - More frequent, less amount intake. - Slow down feeds if nauseous. - Ultimate goal: NG removal in a week. Send home w/o NG. - Will discuss trial of Mirtazepine tomorrow. #Nausea / Vomiting *GERD NO NAUSEA FOR LAST 24 hours - Daily nausea and > 2 episodes of non bloody emesis leading to decreased PO intake on arrival. - Given emesis happens more often in the morning when waking up and a few minutes after laying down, could have a component of acid reflux contributing to nausea - Continue Zofran prn for nausea with Compazine to be used for breakthrough nausea; CAUTION as patient does have QT prolongation on last EKG. Plan: -Repeat EKG today. - Continue Protonix 40 mg PO and Pepcid 20 mg - Miralax daily Hyponatremia - Labs today showing Na of 130 no sxs - Likely related to poor PO intake and only drinking water daily Plan: Encourage PO intake as mentioned above and monitor am labs Portal vein thrombosis / Chronic Warfarin use (INR goal 2-3) - Currently on Warfarin and Vitamin K( was held d/t supratherapeutic INR). - Follows Anticoagulation Clinic - INR of 1.6 today; Warfarin 2mg given. Follow daily INR ESLD - Follows hepatology as an outpatient. [facility]. - On transplant list as per patient. -Talked to [facility] nurse navigator ( 03/02/2025): Pt is on list since 2013. MELD score 22 as per recent update. They will recheck MELD Q1 month for score 19-25. He will on list for next week if he approaches MELD 30. But now he is on wait list. During last visit, they identified him as frail patient for the whole process, hence they would like him to be evaluated by the team there in for pre surgery assessment. Nutrition, Anesthesiology and hepato will reassess him together( scheduled on Apr 02). They will holistically manage his nutrition status as well. They can have inpatient nutrition rehabilitation if needed. Until then they agree with our management. Willing to transfer if needed. DM-II - Continue Lantus and SSI Hypothyroidism - Continue Levothyroxine Anxiety - Will hold home BZD due to current weakness and dizziness/imbalance Dispo: Pending stability, Fax recent MELD to nurse navigator. Diet: Regular; ADAT, NG tube in Code Status: DNI Admission and Anticipated Discharge Date Admission Date: February 23, 2025 Supervising Physician Co-Signing Physician Notes resident Physician Supervision Note: I personally examined the patient and verified all trivedi points of history and exam, discussed case, and agree with decision making with Dr. Sandoval I visited the patient independently. The patient states that the NG tube is bothering the back of his throat. He states that he was willing to Patient try oral feeding and he is okay if we remove the NG tube understanding that if he fell he had to have his reinserted. Physical exam orally the back of his throat did not look significantly irritated his card exam is regular lungs are clear abdomen is NABS soft and nontender At this point I am going to remove his NG tube and place him on scheduled antiemetics consider an appetite stimulant perhaps even at bedtime Lauritaeron Appreciate the interaction with his transplant restaurant hourly team member If patient can tolerate oral intake we will have him home with hopefully a systems trainer evaluation for improving home nutrition I discussed the case with the resident and agree with the findings and plan as documented in the note. Any exceptions or clarifications are listed here: Documented By: Hayden Clement MD Subjective Mr. Pryor 69 yo, male with cirrhosis and failure to thrive. He is on NG tube, He is also eating himself. He did not have any significant event overnight, no nausea, no vomiting. The last time he needed ani emetic was on 03/01. He is trying to eat himself. I talked to his Liver transplant team today. He expresses ongoing fear of eating, anticipating of feeling sick , he would rather avoid eating. Lives in home with his , they cook mostly at home. No diarrhoea, fever, no vomitin g in last 24 hour. He is eating zellos through mouth. Review of Systems Review of Systems: As per HPI Physical Exam Physical Exam: Constitutional: Frail appearing, No acute distress. NG tube insitu. HEENT: Atraumatic, Normocephalic, No conjunctival injection CVS: S1 S2 no murmur, Regular Rhythm, no LE edema Respiratory: No increased work of breathing GI: Soft, Nondistended, Nontender, Normal Bowel sounds + MSK: No gross deformities noted Skin: Warm, Dry, No rashes Neuro: Alert, Oriented to TPP, No Focal deficit Psych: Mood and Affect congruent, Cooperative on exam Results & Data Results & Data Vital Signs (Past 12 Hours) Vital Signs Temp Pulse Resp BP Pulse Ox O2 Del Method 03/02/25 07:31 36.3 C L 83 16 105/68 94 Room Air Resident Activity Tracking Resident Involvement: Resident Care Provided Care Provided: Adult Hospital Medicine (2) GERD (gastroesophageal reflux disease) Esophagitis presence: without esophagitis Qualified Code(s): K21.9 - Gastro- esophageal reflux disease without esophagitis (3) Nausea & vomiting Vomiting type: unspecified Qualified Code(s): R11.2 - Nausea with vomiting, unspecified (7) Hypothyroidism Hypothyroidism type: unspecified Qualified Code(s): E03.9 - Hypothyroidism, unspecified
[2025-03-02 09:57] LABS: Hematocrit (blood only) 35.4 % (42.0-52.0); Hemoglobin 11.6 g/dL (14.0-18.0); Immature Granulocytes # (auto) 0.10 K/uL (0.01-0.20); Immature Granulocytes % (auto) 0.8 %; Mean Corpuscular Hemoglobin 33.6 pg (25.0-34.0); Mean Corpuscular Volume 102.6 fL (80.0-100.0); Platelet Count 310 K/uL (130-400); RDW Standard Deviation 65.4 fL (36.4-46.3); Red Blood Count 3.45 M/uL (4.70-6.10); White Blood Count 12.70 K/ul (4.8-10.8)
[2025-03-02 10:10] LABS: Alanine Aminotransferase 32.0 U/L (7-52); Albumin Globulin Ratio 0.4 (0.9-2); Albumin Level 1.9 gm/dl (3.4-5.0); Alkaline Phosphatase 294.0 U/L (34-104); Anion Gap 4.0 (3-11); Bilirubin,Total 3.0 mg/dl (0.2-1.0); Blood Urea Nitrogen 11.0 mg/dl (6-23); Calcium 8.0 mg/dl (8.6-10.3); Carbon Dioxide 28.0 mmol/L (21-32); Chloride 98.0 mmol/L (98-107); Creatinine Clr Calc Pharmacy 100.0 ml/min; Globulin 5.3 gm/dl (2.5-4.0); Glucose 141.0 mg/dl (70-99(Fasting)); Magnesium 1.6 mg/dl (1.7-2.4); Potassium 3.7 mmol/L (3.5-5.1); Sodium 130.0 mmol/L (136-145); Total Protein 7.2 gm/dl (6.0-8.3)
[2025-03-02 10:23] LABS: INR 1.6 (0.9-1.1); Prothrombin Time 16.1 Seconds (9.0-12.0)
[2025-03-02] MEDS: WARFARIN SOD 2 MG TAB PO STA (11:19)
[2025-03-02] MEDS: METOCLOPRAMIDE HCL 5 MG TABLET PO SCH (16:15)
--- NOTE | 2025-03-02 17:00 | Billing Data ---
Date of Service March 02, 2025 Coding Level of Care Code 30929 SUB INP/OBS CARE
--- NOTE | 2025-03-02 18:55 | Electrocardiogram Report ---
Test Reason : Blood Pressure : */* mmHG Vent. Rate : 80 BPM Atrial Rate : 80 BPM P-R Int : 160 ms QRS Dur : 78 ms QT Int : 412 ms P-R-T Axes : 38 -8 32 degrees QTcB Int : 475 ms Normal sinus rhythm Low voltage QRS Borderline ECG Confirmed by Fernando Tolentino ([id number]) on 03/02/2025 6:55:28 PM Referred By: REFERRED SELF Confirmed By: Fernando Tolentino
[2025-03-02] MEDS: COUGH DROP (SUGAR FREE) LOZ 24 LOZ/1 BOX BUCCAL PRN (19:30)
[2025-03-02] MEDS ORDERED: PEPTAMEN 1.5 CAL 1,000 ML BAG NG SCH (20:00)
[2025-03-03 07:05] LABS: INR 1.6 (0.9-1.1); Prothrombin Time 16.7 Seconds (9.0-12.0)
[2025-03-03 07:57] LABS: Alanine Aminotransferase 36.0 U/L (7-52); Albumin Globulin Ratio 0.4 (0.9-2); Albumin Level 1.8 gm/dl (3.4-5.0); Alkaline Phosphatase 291.0 U/L (34-104); Anion Gap 6.0 (3-11); Bilirubin,Total 2.9 mg/dl (0.2-1.0); Blood Urea Nitrogen 11.0 mg/dl (6-23); Calcium 8.1 mg/dl (8.6-10.3); Carbon Dioxide 26.0 mmol/L (21-32); Chloride 100.0 mmol/L (98-107); Creatinine Clr Calc Pharmacy 95.9 ml/min; Globulin 4.7 gm/dl (2.5-4.0); Glucose 101.0 mg/dl (70-99(Fasting)); Potassium 4.3 mmol/L (3.5-5.1); Sodium 132.0 mmol/L (136-145); Total Protein 6.5 gm/dl (6.0-8.3)
[2025-03-03] MEDS ORDERED: [UNRECOGNIZED DRUG - REMARK] SCH (08:00)
[2025-03-03] MEDS: OLANZAPINE 2.5 MG TAB PO SCH (08:23)
--- NOTE | 2025-03-03 09:29 | Hospitalist Progress Note ---
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 #Weakness/Physical deconditioning (uses walker at baseline) *Decreased PO intake ; multifactorial ( CLD vs Anticipatory nausea). IMPROVING NAUSEA with med mgmt. - Suspect progressively worsening weakness may be a combination of baseline physical deconditioning as has been seen in previous admissions, plus nausea leading to decreased PO intake and > 2 episodes of non bloody emesis daily. Likely some component of food aversion, given frequent nausea and desire to avoid provoking sx. - Weight loss of 3 kg compared to 02/02 - GI consulted, appreciate recs: EGD July 2024: portal hypertensive gastropathy, small hiatal hernia, portal duodenopathy. Ordered Abd series, Abd US, Portal vein US - results do not provide adequate explanation of sx - Due to lack of clear pathology behind sx, other than food aversion, NG tube was inserted on 02/28. However after extensive discussion with patient on 03/03- with his consensus, it was removed. -Nutrition following: Appreciate recs. Plan: Encourage PO intake. Discussed doing more frequent meal , less amount at a time. He has been consistently eating closer to 50% of his meal. #Nutritional Rehabilitation BMI: 22. Patient continues to eat by mouth. Impriving PO. Plan: Encourage PO - Weight check Q 7 days. - Continue Nutrition counselling - More frequent, less amount intake. - Slow down feeds if nauseous. - Continue Olanzapine( for antinausea+ anti-anxiety effect) #Nausea / Vomiting *GERD, anticipatory nausea NO NAUSEA FOR LAST 48 hours - Daily nausea and > 2 episodes of non bloody emesis leading to decreased PO intake on arrival. - Currently on Reglan ACHS and Zofran as needed. QT duration is improved to normal as per EKG repeated on 03/02/2025. Plan: - Reglan ACHS and Zofran PRN. - Continue Protonix 40 mg PO and Pepcid 20 mg - Miralax daily Hyponatremia - Labs today showing Na of 132; no sxs - Likely related to poor PO intake and only drinking water daily Plan: Encourage PO intake as mentioned above and monitor am labs Portal vein thrombosis / Chronic Warfarin use (INR goal 2-3) - Currently on Warfarin and Vitamin K( was held d/t supratherapeutic INR). - Follows Anticoagulation Clinic - INR of 1.6 today; Warfarin 2mg given. Follow daily INR ESLD - Follows hepatology as an outpatient. [facility]. - On transplant list as per patient. -Talked to haile Peter's nurse navigator ( 03/02/2025): Pt is on list since 2013. MELD score 22 as per recent update. They will recheck MELD Q1 month for score 19-25. He will on list for next week if he approaches MELD 30. But now he is on wait list. During last visit, they identified him as frail patient for the whole process, hence they would like him to be evaluated by the team there in for pre surgery assessment. Nutrition, Anesthesiology and hepato will reassess him together( scheduled on Apr 02). They will holistically manage his nutrition status as well. They can have inpatient nutrition rehabilitation if needed. Until then they agree with our management. Willing to transfer if needed. DM-II - Continue Lantus and SSI Hypothyroidism - Continue Levothyroxine Anxiety - Will hold home BZD due to current weakness and dizziness/imbalance - Patient on Wellbutrin. Hyperlipidemia - Pt on statin for HLD. - recent LDL: 34. Given his h/o CLD, I think its reasonable to hold Statin, weighing risk/ benefit Dispo: Pending stability, Fax recent MELD to nurse navigator. advertising production manager informed. Mr. Pryor would like to continue inpatient rehab, does not want to go rehab. DVT prophylaxis: Warfarin Diet: Regular, less amount, more frequent, Code Status: DNI Admission and Anticipated Discharge Date Admission Date: February 23, 2025 Supervising Physician Co-Signing Physician Notes resident Physician Supervision Note: I personally examined the patient and verified all trivedi points of history and exam, discussed case, and agree with decision making with Dr. Sandoval I visited the patient independently. The patient states that he is feeling better since the NG tube has been removed. He states that he had some success with oral feeding we discussed frequent small meals and also doing some self directed physical exercise in the room. Physical exam abdomen is normal active bowel sounds soft nontender nondistended Continue to encourage oral intake hopefully getting some tracking of the percentage of meals eats from nursing staff Continue with physical rehabilitation with physical therapy to determine if he is fit to return home Appreciate the interaction with his transplant team manager If patient can tolerate oral intake we will have him home with hopefully a nutr itionist evaluation for improving home nutrition I discussed the case with the resident and agree with the findings and plan as documented in the note. Any exceptions or clarifications are listed here: Documented By: Hayden Clement MD Subjective Mr. Pryor 69 yo, male with cirrhosis and failure to thrive. He is in liver transplant list. He was kept on NG tube for couple days and was removed yesterday( 03/02/2025). He has been trying to eat himself. He did not have any significant event overnight, no nausea, no vomiting. The last time he needed ani emetic was on 03/01. He is trying to eat himself. Today when I was there he had finished 50% of his breakfast. No diarrhoea, fever, no vomiting in last 24 hour. Review of Systems Review of Systems: As per HPI Physical Exam Physical Exam: Constitutional: Frail appearing, No acute distress. HEENT: Atraumatic, Normocephalic, No conjunctival injection CVS: S1 S2 no murmur, Regular Rhythm, no LE edema Respiratory: No increased work of breathing GI: Soft, Nondistended, Nontender, Normal Bowel sounds + MSK: No gross deformities noted Skin: Warm, Dry, No rashes Neuro: Alert, Oriented to TPP, No Focal deficit Psych: Mood and Affect congruent, Cooperative on exam Results & Data Results & Data Vital Signs (Past 12 Hours) Vital Signs Temp Pulse Resp BP Pulse Ox O2 Del Method 03/03/25 07:14 36.6 C 96 H 14 118/64 90 Room Air 03/02/25 22:24 36.7 C 92 H 14 103/71 92 Room Air Resident Activity Tracking Resident Involvement: Resident Care Provided Care Provided: Adult Hospital Medicine (2) GERD (gastroesophageal reflux disease) Esophagitis presence: without esophagitis Qualified Code(s): K21.9 - Gastro- esophageal reflux disease without esophagitis (3) Nausea & vomiting Vomiting type: unspecified Qualified Code(s): R11.2 - Nausea with vomiting, unspecified (7) Hypothyroidism Hypothyroidism type: unspecified Qualified Code(s): E03.9 - Hypothyroidism, unspecified
[2025-03-03] MEDS: WARFARIN SOD 2 MG TAB PO ONE (15:44)
--- NOTE | 2025-03-03 16:25 | Billing Data ---
Date of Service March 03, 2025 Coding Level of Care Code 52976 SUB INP/OBS CARE
[2025-03-04 06:47] LABS: INR 1.7 (0.9-1.1); Prothrombin Time 17.8 Seconds (9.0-12.0)
--- NOTE | 2025-03-04 08:40 | Hospitalist Progress Note ---
Date of Service March 04, 2025 Assessment & Plan (1) Generalized weakness: (2) GERD (gastroesophageal reflux disease): (3) Nausea & vomiting: (4) Decreased oral intake: (5) Dehydration: (6) Hyponatremia: (7) Hypothyroidism: (8) End stage liver disease: (9) Controlled type 2 diabetes mellitus, with long-term current use of insulin: (10) Anticoagulant long-term use: (11) Superior mesenteric vein thrombosis: (12) Anxiety and depression: Plan Pt is a 69 yo male with a past medical hx of ESLD with hx of portal vein thrombosis now on warfarin chronically, hypothyroidism, GERD, T2DM on insulin, and hx esophageal varices admitted for weakness and is being managed for his nutrition. #Weakness/Physical deconditioning (uses walker at baseline) *Decreased PO intake ; multifactorial ( CLD vs Anticipatory nausea). IMPROVING NAUSEA with med mgmt. - Suspect progressively worsening weakness may be a combination of baseline physical deconditioning as has been seen in previous admissions, plus nausea leading to decreased PO intake and > 2 episodes of non bloody emesis daily. Likely some component of food aversion, given frequent nausea and desire to avoid provoking sx. - Weight loss of 3 kg compared to 02/02 - GI consulted, appreciate recs: EGD July 2024: portal hypertensive gastropathy, small hiatal hernia, portal duodenopathy. Ordered Abd series, Abd US, Portal vein US - results do not provide adequate explanation of sx - Due to lack of clear pathology behind sx, other than food aversion, NG tube was inserted on 02/28. However after extensive discussion with patient on 03/03- with his consensus, it was removed. -Nutrition following: Appreciate recs. Plan: Encourage PO intake. Discussed doing more frequent meal , less amount at a time. He has been consistently eating closer to 50% of his meal. #Nutritional Rehabilitation BMI: 22. Patient continues to eat by mouth. Improving PO. Plan: Encourage PO - Weight check Q 7 days. - Continue Nutrition counselling - Recommend More frequent, less amount intake. - Slow down feeds if nauseous. - Continue Olanzapine(for antinausea+ anti-anxiety effect) #Nausea / Vomiting *GERD, anticipatory nausea NO NAUSEA FOR LAST 48 hours - Daily nausea and > 2 episodes of non bloody emesis leading to decreased PO intake on arrival. - Currently on Reglan ACHS and Zofran as needed. QT duration is improved to normal as per EKG repeated on 03/02/2025. - Reglan is better in terms of prokinetic effect however using together with Olanzapine for long time is not a good option, this will precipitate extrapyramidal side effects like Dystonia. I will hold Reglan and see how he does with as needed Zofran. Plan: - Zofran PRN. - Continue Protonix 40 mg PO and Pepcid 20 mg - Miralax daily Hyponatremia - Labs today showing Na of 132; no sxs - Likely related to poor PO intake and only drinking water daily Plan: Encourage PO intake as mentioned above and monitor am labs Portal vein thrombosis / Chronic Warfarin use (INR goal 2-3) - Currently on Warfarin and Vitamin K( was held d/t supratherapeutic INR). - Follows Anticoagulation Clinic - INR of 1.6 today; Warfarin 2mg given. Follow daily INR ESLD - Follows hepatology as an outpatient. [facility]. - On transplant list as per patient. -Talked to haile Peter's nurse navigator ( 03/02/2025): Pt is on list since 2013. MELD score 22 as per recent update. They will recheck MELD Q1 month for score 19-25. He will on list for next week if he approaches MELD 30. But now he is on wait list. During last visit, they identified him as frail patient for the whole process, hence they would like him to be evaluated by the team there in for pre surgery assessment. Nutrition, Anesthesiology and hepato will reassess him together( scheduled on Apr 02). They will holistically manage his nutrition status as well. They can have inpatient nutrition rehabilitation if needed. Until then they agree with our management. Willing to transfer if needed. DM-II - Continue Lantus and SSI Hypothyroidism - Continue Levothyroxine Anxiety - Will hold home BZD due to current weakness and dizziness/imbalance - Patient on Wellbutrin. Hyperlipidemia - Pt on statin for HLD. - recent LDL: 34. Given his h/o CLD, I think its reasonable to hold Statin, weighing risk/ benefit Dispo: OT/PT recommends Rehab, pt does not want to go. DVT prophylaxis: Warfarin Diet: Regular, less amount, more frequent, Code Status: DNI Admission and Anticipated Discharge Date Admission Date: February 23, 2025 Supervising Physician Co-Signing Physician Notes Patient seen and examined, chart reviewed, case discussed with Dr. Lori MD and I agree with the assessment and plan as above except as otherwise noted Labs and images reviewed 69-year-old male clinically progressing and doing well. He is seen at bedside independently. Continues to feel better since NG has been removed. PT recommending rehab which he prefers to avoid if possible, is working on strength and placement is pending. Abdomen is soft/nontender. Nausea is improving. QT has normalized. Continued use of Zofran for now. Could use Reglan however ongoing scheduled use of this does from the risk of EPS side effects so we will see if this can be well-controlled with Zofran first. If gastroparesis is suspected macrolide prior to meal trial could also be pursued. He is clinically progressing. INR is subtherapeutic today, he did receive an additional 2 mg dose of Lasix 03/03. He is still subtherapeutic 03/04 can consider a second additional dose. INR daily. Otherwise agree with above Subjective Mr. Pryor 69 yo, male with cirrhosis and failure to thrive. He is in liver transplant list. He was kept on NG tube for couple days and was removed on 03/02/2025. He has been trying to eat himself. He did not have any significant event overnight, no nausea, no vomiting. The last time he needed ani emetic was on 03/01. Today when I was there he expressed that he did not want to eat breakfast today, not because of nausea but does not feel like eating Bf today, No overnight issue. He as hoping to have physical therapy see him today. Review of Systems Review of Systems: As per HPI Physical Exam Physical Exam: Constitutional: Frail appearing, No acute distress. HEENT: Atraumatic, Normocephalic, No conjunctival injection CVS: S1 S2 no murmur, Regular Rhythm, no LE edema Respiratory: No increased work of breathing GI: Soft, Nondistended, Nontender, Normal Bowel sounds + MSK: No gross deformities noted Skin: Warm, Dry, No rashes Neuro: Alert, Oriented to TPP, No Focal deficit Psych: Mood and Affect congruent, Cooperative on exam Results & Data Results & Data Vital Signs (Past 12 Hours) Vital Signs Temp Pulse Resp BP Pulse Ox O2 Del Method 03/04/25 07:28 36.5 C 88 14 109/72 92 Room Air 03/03/25 22:54 95 H 14 91 Room Air 03/03/25 21:49 36.7 C 97 H 18 107/71 95 Room Air Resident Activity Tracking Resident Involvement: Resident Care Provided Care Provided: Adult Hospital Medicine (2) GERD (gastroesophageal reflux disease) Esophagitis presence: without esophagitis Qualified Code(s): K21.9 - Gastro- esophageal reflux disease without esophagitis (3) Nausea & vomiting Vomiting type: unspecified Qualified Code(s): R11.2 - Nausea with vomiting, unspecified (7) Hypothyroidism Hypothyroidism type: unspecified Qualified Code(s): E03.9 - Hypothyroidism, unspecified
--- NOTE | 2025-03-04 12:08 | Billing Data ---
Date of Service March 04, 2025 Coding Level of Care Code 98804 SUB INP/OBS CARE MIN
[2025-03-04] MEDS: WARFARIN SOD 2.5 MG TAB PO SCH (16:08)
[2025-03-05 06:54] LABS: INR 1.9 (0.9-1.1); Prothrombin Time 19.7 Seconds (9.0-12.0)
[2025-03-05] MEDS: FUROSEMIDE INJ 20 MG/2 ML VIAL IV ONE (08:16)
--- NOTE | 2025-03-05 08:42 | Hospitalist Progress Note ---
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 #Overnight Deoxygenation - Pt was hypoxic overnight per nurse bedside. He was not in distress, Spo2 was as low as 85%, which is new for him - This morning when I saw him patient was unexpectedly more fatigued but was breathning shallow as well. D/D: Night time deoxygenation, cold vs worsening pleural effusion vs other. Plan: Chest XR stat: Shows stable effusion Frusemide 20 mg IV stat given; technically frusemide per se is not the right diuretics for him, however for the reason this is only iV available and I did suspect worsening fluid in his lugs, ordered 1 IV stat dose this morning. He would beenfit from Spironoloactone if needed for terminal carman. Labs: CMP, CBC ordered; looks reassuring except from his usual CLD changes. #severe Hypoalbuminemia with anasarca( fluid in abdomen, pleural effusion, peripheral edema) - Patient would benefit from albumin infusion, however will try Diuretics first; frusemide+spironolactone combination starting tomorrow. He got one dose of lasix today. #Weakness/Physical deconditioning (uses walker at baseline) *Decreased PO intake ; multifactorial ( CLD vs Anticipatory nausea). IMPROVING NAUSEA with med mgmt. - Suspect progressively worsening weakness may be a combination of baseline p hysical deconditioning as has been seen in previous admissions, plus nausea leading to decreased PO intake and > 2 episodes of non bloody emesis daily. Likely some component of food aversion, given frequent nausea and desire to avoid provoking sx. - Weight loss of 3 kg compared to 02/02 - GI consulted, appreciate recs: EGD July 2024: portal hypertensive gastropathy, small hiatal hernia, portal duodenopathy. Ordered Abd series, Abd US, Portal vein US - results do not provide adequate explanation of sx - Due to lack of clear pathology behind sx, other than food aversion, NG tube was inserted on 02/28. However after extensive discussion with patient on 03/03- with his consensus, it was removed. -Nutrition following: Appreciate recs. Plan: Encourage PO intake. Discussed doing more frequent meal , less amount at a time. He has been consistently eating closer to 50% of his meal. #Nutritional Rehabilitation BMI: 22. Patient continues to eat by mouth. Improving PO. Plan: Encourage PO - Weight check Q 7 days. - Continue Nutrition counselling - Recommend More frequent, less amount intake. - Slow down feeds if nauseous. - Continue Olanzapine(for antinausea+ anti-anxiety effect) #Nausea / Vomiting *GERD, anticipatory nausea NO NAUSEA FOR LAST 48 hours - Daily nausea and > 2 episodes of non bloody emesis leading to decreased PO intake on arrival. - Currently on Reglan ACHS and Zofran as needed. QT duration is improved to normal as per EKG repeated on 03/02/2025. - Reglan is better in terms of prokinetic effect however using together with Olanzapine for long time is not a good option, this will precipitate extrapyram idal side effects like Dystonia. I will hold Reglan and see how he does with as needed Zofran. Plan: - Zofran PRN. - Continue Protonix 40 mg PO and Pepcid 20 mg - Miralax daily Hyponatremia - Labs today showing Na of 132; no sxs - Likely related to poor PO intake and only drinking water daily Plan: Encourage PO intake as mentioned above and monitor am labs Portal vein thrombosis / Chronic Warfarin use (INR goal 2-3) - Currently on Warfarin and Vitamin K( was held d/t supratherapeutic INR). - Follows Anticoagulation Clinic - INR of 1.6 today; Warfarin 2mg given. Follow daily INR ESLD - Follows hepatology as an outpatient. [facility]. - On transplant list as per patient. -Talked to haile Peter's nurse navigator ( 03/02/2025): Pt is on list since 2013. MELD score 22 as per recent update. They will recheck MELD Q1 month for score 19-25. He will on list for next week if he approaches MELD 30. But now he is on wait list. During last visit, they identified him as frail patient for the whole process, hence they would like him to be evaluated by the team there in for pre surgery assessment. Nutrition, Anesthesiology and hepato will reassess him together( scheduled on Apr 02). They will holistically manage his nutrition status as well. They can have inpatient nutrition rehabilitation if needed. Until then they agree with our management. Willing to transfer if needed. DM-II - Continue Lantus and SSI Hypothyroidism - Continue Levothyroxine Anxiety - Will hold home BZD due to current weakness and dizziness/imbalance - Patient on Wellbutrin. Hyperlipidemia - Pt on statin for HLD. - recent LDL: 34. Given his h/o CLD, I think its reasonable to hold Statin, weighing risk/ benefit Dispo: OT/PT recommends Rehab, pt does not want to go. DVT prophylaxis: Warfarin Diet: Regular, less amount, more frequent, Code Status: DNI Admission and Anticipated Discharge Date Admission Date: February 23, 2025 Supervising Physician Co-Signing Physician Notes I personally examined the patient and verified all trivedi points of history and exam, discussed case, and agree with decision making with Dr Sandoval Patient reports feeling more short of breath and required a significant increase of oxygenation. Given his cirrhosis, patient would benefit from startin spironolactone 100 mg and continue lasix. Will closely monitor for clinical improvement. f eating better than before. no vomiting. tolerating PO reasonably well. still weak - willing to go to SNF/rehab emphasis. nauseatrial of tube feeds - ?aversion nausea vs truly can't tolerate being the differential - tolerated well - and since removal eating better. likely predominantly nausea from aversion - improved. continue med management. protein calorie malnutritionacutely seems to be severe given his weakness and the fact that he looks more muscle wasting and emaciatednutrition consult appreciated. should have ongoing nutrition support after dc and d/w family to continue to encourage PO nutrition. DeconditioningPT/OT eval and treat ongoing at SNF [facility] to stay on top of nutrition and do the best he can with conditioning so as to be able to be a candidate when the time comes. otherwise as above Subjective Mr. Konstantin 69 yo, male with cirrhosis and failure to thrive. He is in liver transplant list. He was kept on NG tube for couple days and was removed on 03/02/2025. He had significant overnight. Per nursing bedside, he dropped down to 85% saturation and was started on Oxygen, now upto 3L. He was sleeping, expressed he was tired and does not want to talk much. He is not nauseous he confirmed, however he keep saying I am sorry, I am very tired. He confirmed his , time and place. Was breathing shallow but denied chest pain. Swelling in his limbs have worsened from yesterday. He has not thrown up for last few days. No fever, belly pain. Review of Systems 2 Review of Systems: As per HPI Physical Exam Physical Exam: Constitutional: Frail appearing, No acute distress. HEENT: Atraumatic, Normocephalic, No conjunctival injection CVS: S1 S2 no murmur, Regular Rhythm, Significant LE edema Respiratory: Shallow breathing, BL decreased breath sounds. GI: Distended abdomen, Nontender, fluid thrill+, Normal Bowel sounds + MSK: No gross deformities noted Skin: Warm, Dry, Bruise in IV site. Neuro: Was sleeping but responsive to voice, did not do full neuro exam Psych: Mood and Affect congruent, Cooperative on exam Results & Data Results & Data Vital Signs (Past 12 Hours) Vital Signs Temp Pulse Resp BP BP Pulse Ox O2 Del Method 03/05/25 07:25 Nasal Cannula 03/05/25 07:19 94 Nasal Cannula 03/05/25 07:13 36.8 C 96 H 18 110/73 91 Nasal Cannula 03/04/25 22:45 92 Nasal Cannula 03/04/25 22:39 36.8 C 97 H 16 111/71 85 L Room Air O2 Flow Rate 03/05/25 07:25 3 03/05/25 07:19 3 03/05/25 07:13 2 03/04/25 22:45 3 03/04/25 22:39 Resident Activity Tracking Resident Involvement: Resident Care Provided Care Provided: Adult Hospital Medicine (2) GERD (gastroesophageal reflux disease) Esophagitis presence: without esophagitis Qualified Code(s): K21.9 - Gastro- esophageal reflux disease without esophagitis (3) Nausea & vomiting Vomiting type: unspecified Qualified Code(s): R11.2 - Nausea with vomiting, unspecified (7) Hypothyroidism Hypothyroidism type: unspecified Qualified Code(s): E03.9 - Hypothyroidism, unspecified
[2025-03-05 09:06] LABS: Alanine Aminotransferase 35.0 U/L (7-52); Albumin Globulin Ratio 0.3 (0.9-2); Albumin Level 1.7 gm/dl (3.4-5.0); Alkaline Phosphatase 318.0 U/L (34-104); Anion Gap 5.0 (3-11); Bilirubin,Total 2.4 mg/dl (0.2-1.0); Blood Urea Nitrogen 13.0 mg/dl (6-23); Calcium 7.8 mg/dl (8.6-10.3); Carbon Dioxide 27.0 mmol/L (21-32); Chloride 102.0 mmol/L (98-107); Creatinine Clr Calc Pharmacy 101.4 ml/min; Globulin 4.9 gm/dl (2.5-4.0); Glucose 103.0 mg/dl (70-99(Fasting)); Magnesium 1.7 mg/dl (1.7-2.4); Potassium 3.6 mmol/L (3.5-5.1); Sodium 134.0 mmol/L (136-145); Total Protein 6.6 gm/dl (6.0-8.3)
[2025-03-05 09:12] LABS: Hematocrit (blood only) 31.9 % (42.0-52.0); Hemoglobin 10.5 g/dL (14.0-18.0); Immature Granulocytes # (auto) 0.06 K/uL (0.01-0.20); Immature Granulocytes % (auto) 0.5 %; Mean Corpuscular Hemoglobin 34.5 pg (25.0-34.0); Mean Corpuscular Volume 104.9 fL (80.0-100.0); Platelet Count 251 K/uL (130-400); RDW Standard Deviation 71.2 fL (36.4-46.3); Red Blood Count 3.04 M/uL (4.70-6.10); White Blood Count 11.44 K/ul (4.8-10.8)
--- NOTE | 2025-03-05 09:58 | XRay Report ---
XR chest 2V PA/lateral CLINICAL HISTORY: new O2 need, previous effusion COMPARISON STUDY: 02/27/2025 FINDINGS: There is stable cardiomegaly with pulmonary vascular congestion. There are bilateral pleura l effusions and lung base consolidation, left greater than right, increased. No pneumothorax seen. IMPRESSION: CHF with increased pleural effusions and lower lung consolidation. ACT 112: Negative or not required by law. Electronically signed by: Perry Tilley M.D. 03/05/2025 9:57 AM
[2025-03-05] MEDS: SPIRONOLACTONE 100 MG TAB PO SCH (11:49)
--- NOTE | 2025-03-06 06:55 | Hospitalist Progress Note ---
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 #severe Hypoalbuminemia with anasarca( fluid in abdomen, pleural effusion, peripheral edema) 2.2 CLD, on transplant list - Diuretics first; frusemide+spironolactone combination. - Order US limited to quantify ascites. He might need paracentesis. #Weakness/Physical deconditioning (uses walker at baseline) *Decreased PO intake ; multifactorial ( CLD vs Anticipatory nausea). IMPROVING NAUSEA with med mgmt. - Suspect progressively worsening weakness may be a combination of baseline physical deconditioning as has been seen in previous admissions, plus nausea leading to decreased PO intake and > 2 episodes of non bloody emesis daily. Likely some component of food aversion, given frequent nausea and desire to avoid provoking sx. - Weight loss of 3 kg compared to 02/02 ans admission. - GI consulted, appreciate recs: EGD July 2024: portal hypertensive gastropathy, small hiatal hernia, portal duodenopathy. Ordered Abd series, Abd US, Portal vein US - results do not provide adequate explanation of sx - Due to lack of clear pathology behind sx, other than food aversion, NG tube was inserted on 02/28. However after extensive discussion with patient on 03/03- with his consensus, it was removed. -Nutrition following: Appreciate recs. OT/PT recommends Rehab, pt would like go home. Patient aware of importance of going to rehab, however unsure if he would like to go rehab as of 03/06 Plan: Encourage PO intake. Discussed doing more frequent meal , less amount at a time. He has been consistently eating closer to 50% of his meal. #Nutritional Rehabilitation BMI: 22. Patient continues to eat by mouth. Improving PO. Plan: Encourage PO - Weight check Q 7 days. - Continue Nutrition counselling - Recommend More frequent, less amount intake. - Slow down feeds if nauseous. - Continue Olanzapine(for antinausea+ anti-anxiety effect) #Nausea / Vomiting *GERD, anticipatory nausea NO NAUSEA FOR LAST FEW days - Daily nausea and > 2 episodes of non bloody emesis leading to decreased PO intake on arrival. - Currently on Reglan ACHS and Zofran as needed. QT duration is improved to normal as per EKG repeated on 03/02/2025. - Reglan is better in terms of prokinetic effect however using together with Olanzapine for long time is not a good option, this will precipitate extrapyramidal side effects like Dystonia. I will hold Reglan and see how he does with as needed Zofran. Plan: - Zofran PRN. - Continue Protonix 40 mg PO and Pepcid 20 mg - Miralax daily Hyponatremia Improving - Labs today showing Na of 134; no sxs - Likely related to poor PO intake and only drinking water daily Plan: Encourage PO intake as mentioned above and monitor am labs Portal vein thrombosis / Chronic Warfarin use (INR goal 2-3) - Currently on Warfarin and Vitamin K( was held d/t supratherapeutic INR). - Follows Anticoagulation Clinic - INR of 2.4 today; Warfarin 2.5 mg on. I skipped his double dose on Saturday as he initially presented with supratherapeutic INR. Follow daily INR; Goal: 2-3 ESLD - Follows hepatology as an outpatient. [facility]. - On transplant list as per patient. -Talked to haile Peter's nurse navigator ( 03/02/2025): Pt is on list since 2013. MELD score 22 as per recent update. They will recheck MELD Q1 month for score 19-25. He will on list for next week if he approaches MELD 30. But now he is on wait list. During last visit, they identified him as frail patient for the whole process, hence they would like him to be evaluated by the team there in for pre surgery assessment. Nutrition, Anesthesiology and hepato will reassess him together( scheduled on Apr 02). They will holistically manage his nutrition status as well. They can have inpatient nutrition rehabilitation if needed. Until then they agree with our management. Willing to transfer if needed. DM-II - Continue Lantus and SSI Hypothyroidism - Continue Levothyroxine Anxiety - Will hold home BZD due to current weakness and dizziness/imbalance - Patient on Wellbutrin. Hyperlipidemia - Pt on statin for HLD. - recent LDL: 34. Given his h/o CLD, I think its reasonable to hold Statin, weighing risk/ benefit Dispo: OT/PT recommends Rehab, pt does not want to go. Pending stabilization. DVT prophylaxis: Warfarin Diet: Regular, less amount, more frequent, Code Status: DNI Admission and Anticipated Discharge Date Admission Date: February 23, 2025 Supervising Physician Co-Signing Physician Notes I personally examined the patient and verified all trivedi points of history and exam, discussed case, and agree with decision making with Dr Sandoval Acute hypoxic respiratory failure This resolved after initiating spironolactone. Will continue at ratio of 100/40 with lasix. Not that patient is improved, will cut back tomorrow to 50/20 as this is what patient is taking at home f eating better than before. no vomiting. tolerating PO reasonably well. still weak - willing to go to SNF/rehab emphasis. nauseatrial of tube feeds - ?aversion nausea vs truly can't tolerate being the differential - tolerated well - and since removal eating better. likely predominantly nausea from aversion - improved. continue med management. protein calorie malnutritionacutely seems to be severe given his weakness and the fact that he looks more muscle wasting and emaciatednutrition consult appreciated. should have ongoing nutrition support after dc and d/w family to continue to encourage PO nutrition. DeconditioningPT/OT eval and treat ongoing [facility] top of nutrition and do the best he can with conditioning so as to be able to be a candidate when the time comes. otherwise as above Subjective Mr. Pryor 69 yo, male with cirrhosis and failure to thrive. He is in liver transplant list. He was kept on NG tube for couple days and was removed on 03/02/2025. He has not thrown up for last few days. No fever, belly pain. He was still sleeping when I saw him today. Mentions he did not sleep last night that well, does not know why. He feels very tired this AM. Still no nausea, vomiting. He is aware that physical therapy has recommended rehabilitation for him, however he is not sure if he wants to go to rehab. He wants to discuss with family, his will come to hospital this afternoon. Review of Systems Review of Systems: As per HPI Physical Exam Physical Exam: Constitutional: Frail appearing, No acute distress. HEENT: Atraumatic, Normocephalic, No conjunctival injection CVS: S1 S2 no murmur, Regular Rhythm, Significant LE edema Respiratory: Shallow breathing, BL decreased breath sounds. GI: Distended abdomen, Nontender, fluid thrill+, Normal Bowel sounds + MSK: No gross deformities noted Skin: Warm, Dry, Bruise in IV site. Neuro: Was sleeping but responsive to voice, did not do full neuro exam Psych: Mood and Affect congruent, Cooperative on exam Results & Data Results & Data Vital Signs (Past 12 Hours) Vital Signs Temp Pulse Resp BP Pulse Ox O2 Del Method 03/05/25 22:00 Room Air 03/05/25 21:54 36.7 C 94 H 16 96/61 L 94 Room Air (2) GERD (gastroesophageal reflux disease) Esophagitis presence: without esophagitis Qualified Code(s): K21.9 - Gastro- esophageal reflux disease without esophagitis (3) Nausea & vomiting Vomiting type: unspecified Qualified Code(s): R11.2 - Nausea with vomiting, unspecified (7) Hypothyroidism Hypothyroidism type: unspecified Qualified Code(s): E03.9 - Hypothyroidism, unspecified
[2025-03-06 07:01] LABS: Hematocrit (blood only) 32.7 % (42.0-52.0); Hemoglobin 10.7 g/dL (14.0-18.0); Mean Corpuscular Hemoglobin 34.5 pg (25.0-34.0); Mean Corpuscular Volume 105.5 fL (80.0-100.0); Platelet Count 239 K/uL (130-400); RDW Standard Deviation 71.7 fL (36.4-46.3); Red Blood Count 3.10 M/uL (4.70-6.10); White Blood Count 8.37 K/ul (4.8-10.8)
[2025-03-06 07:35] LABS: Alanine Aminotransferase 42.0 U/L (7-52); Albumin Globulin Ratio 0.4 (0.9-2); Albumin Level 1.8 gm/dl (3.4-5.0); Alkaline Phosphatase 355.0 U/L (34-104); Anion Gap 4.0 (3-11); Bilirubin,Total 2.4 mg/dl (0.2-1.0); Blood Urea Nitrogen 14.0 mg/dl (6-23); Calcium 7.9 mg/dl (8.6-10.3); Carbon Dioxide 29.0 mmol/L (21-32); Chloride 101.0 mmol/L (98-107); Creatinine Clr Calc Pharmacy 78.0 ml/min; Globulin 5.0 gm/dl (2.5-4.0); Potassium 3.8 mmol/L (3.5-5.1); Sodium 134.0 mmol/L (136-145); Total Protein 6.8 gm/dl (6.0-8.3)
[2025-03-06 07:42] LABS: INR 2.4 (0.9-1.1); Prothrombin Time 24.6 Seconds (9.0-12.0)
[2025-03-06] MEDS: FUROSEMIDE 40 MG TAB PO SCH (11:19)
--- NOTE | 2025-03-06 12:23 | XRay Report ---
XR chest 2V PA/lateral CLINICAL HISTORY: Pleural effusion COMPARISON STUDY: 03/05/2025 FINDINGS: Stable cardiomegaly with pulmonary vascular congestion. Stable bilateral pleural effusions and lower lung consolidation, left greater than right. No pneumothorax seen. IMPRESSION: Stable exam. ACT 112: Negative or not required by law. Electronically signed by: Perry Tilley M.D. 03/06/2025 12:21 PM
--- NOTE | 2025-03-06 12:25 | Ultrasound Report ---
US abdomen ltd ascites CLINICAL HISTORY: Quantify ascites. COMPARISON STUDY: CT of 02/26/2025 FINDINGS: There is a very small amount of ascites in the lower abdomen which has a complex septated a ppearance. IMPRESSION: Very small amount of ascites. ACT 112: Negative or not required by law. Electronically signed by: Perry Tilley M.D. 03/06/2025 12:24 PM
[2025-03-07 06:11] LABS: Hematocrit (blood only) 32.3 % (42.0-52.0); Hemoglobin 10.8 g/dL (14.0-18.0); Mean Corpuscular Hemoglobin 34.6 pg (25.0-34.0); Mean Corpuscular Volume 103.5 fL (80.0-100.0); Platelet Count 232 K/uL (130-400); RDW Standard Deviation 71.3 fL (36.4-46.3); Red Blood Count 3.12 M/uL (4.70-6.10); White Blood Count 6.79 K/ul (4.8-10.8)
[2025-03-07 06:40] LABS: Alanine Aminotransferase 40.0 U/L (7-52); Albumin Globulin Ratio 0.4 (0.9-2); Albumin Level 1.8 gm/dl (3.4-5.0); Alkaline Phosphatase 343.0 U/L (34-104); Anion Gap 6.0 (3-11); Bilirubin,Total 2.3 mg/dl (0.2-1.0); Blood Urea Nitrogen 14.0 mg/dl (6-23); Calcium 8.0 mg/dl (8.6-10.3); Carbon Dioxide 27.0 mmol/L (21-32); Chloride 101.0 mmol/L (98-107); Creatinine Clr Calc Pharmacy 82.6 ml/min; Globulin 4.8 gm/dl (2.5-4.0); Potassium 3.7 mmol/L (3.5-5.1); Sodium 134.0 mmol/L (136-145); Total Protein 6.6 gm/dl (6.0-8.3)
[2025-03-07 06:44] LABS: INR 2.9 (0.9-1.1); Prothrombin Time 28.5 Seconds (9.0-12.0)
--- NOTE | 2025-03-07 07:15 | Hospitalist Progress Note ---
Date of Service March 07, 2025 Assessment & Plan (1) Generalized weakness: (2) GERD (gastroesophageal reflux disease): (3) Nausea & vomiting: (4) Decreased oral intake: (5) Dehydration: (6) Hyponatremia: (7) Hypothyroidism: (8) End stage liver disease: (9) Controlled type 2 diabetes mellitus, with long-term current use of insulin: (10) Anticoagulant long-term use: (11) Superior mesenteric vein thrombosis: (12) Anxiety and depression: (13) Pleural effusion: Plan Pt is a 69 yo male with a past medical hx of ESLD with hx of portal vein thrombosis now on warfarin chronically, hypothyroidism, GERD, T2DM on insulin, and hx esophageal varices admitted for weakness and is being managed for his nutrition. #severe Hypoalbuminemia with anasarca( fluid in abdomen, pleural effusion, peripheral edema) 2.2 CLD, on transplant list - Diuretics first; frusemide+spironolactone combination. Resumed previous trialed dose Spironolactone 50 mg and Lasix 20 mg daily. - Order US limited to quantify ascites. He might need paracentesis. #Weakness/Physical deconditioning (uses walker at baseline) *Decreased PO intake ; multifactorial ( CLD vs Anticipatory nausea). IMPROVING NAUSEA with med mgmt. - Suspect progressively worsening weakness may be a combination of baseline physical deconditioning as has been seen in previous admissions, plus nausea leading to decreased PO intake and > 2 episodes of non bloody emesis daily. Likely some component of food aversion, given frequent nausea and desire to avoid provoking sx. - Weight loss of 3 kg compared to 02/02 ans admission. - GI consulted, appreciate recs: EGD July 2024: portal hypertensive gastropathy, small hiatal hernia, portal duodenopathy. Ordered Abd series, Abd US, Portal vein US - results do not provide adequate explanation of sx - Due to lack of clear pathology behind sx, other than food aversion, NG tube was inserted on 02/28. However after extensive discussion with patient on 03/03- with his consensus, it was removed. -Nutrition following: Appreciate recs. OT/PT recommends Rehab, pt would like go home. Patient aware of importance of going to rehab, however unsure if he would like to go rehab as of 03/06 Plan: Encourage PO intake. Discussed doing more frequent meal , less amount at a time. He has been consistently eating closer to 50% of his meal. #Nutritional Rehabilitation BMI: 22. Patient continues to eat by mouth. Improving PO. Plan: Encourage PO - Weight check Q 7 days. - Continue Nutrition counselling - Recommend More frequent, less amount intake. - Slow down feeds if nauseous. - Continue Olanzapine(for antinausea+ anti-anxiety effect) #Nausea / Vomiting *GERD, anticipatory nausea NO NAUSEA FOR LAST FEW days - Daily nausea and > 2 episodes of non bloody emesis leading to decreased PO intake on arrival. - Currently on Reglan ACHS and Zofran as needed. QT duration is improved to normal as per EKG repeated on 03/02/2025. - Reglan is better in terms of prokinetic effect however using together with Olanzapine for long time is not a good option, this will precipitate extrapyramidal side effects like Dystonia. I will hold Reglan and see how he does with as needed Zofran. Plan: - Zofran PRN. - Continue Protonix 40 mg PO and Pepcid 20 mg - Miralax daily Hyponatremia Improving - Labs today showing Na of 134; no sxs - Likely related to poor PO intake and only drinking water daily Plan: Encourage PO intake as mentioned above and monitor am labs Portal vein thrombosis / Chronic Warfarin use (INR goal 2-3) - Currently on Warfarin and Vitamin K( was held d/t supratherapeutic INR). - Follows Anticoagulation Clinic - INR of 2.4 today; Warfarin 2.5 mg on. I skipped his double dose on Saturday as he initially presented with supratherapeutic INR. Follow daily INR; Goal: 2-3 ESLD - Follows hepatology as an outpatient. [facility]. - On transplant list as per patient. -Talked to haile Peter's nurse navigator ( 03/02/2025): Pt is on list since 2013. MELD score 22 as per recent update. They will recheck MELD Q1 month for score 19-25. He will on list for next week if he approaches MELD 30. But now he is on wait list. During last visit, they identified him as frail patient for the whole process, hence they would like him to be evaluated by the team there in for pre surgery assessment. Nutrition, Anesthesiology and hepato will reassess him together( scheduled on Apr 02). They will holistically manage his nutrition status as well. They can have inpatient nutrition rehabilitation if needed. Until then they agree with our management. Willing to transfer if needed. DM-II - Continue Lantus and SSI Hypothyroidism - Continue Levothyroxine Anxiety - Will hold home BZD due to current weakness and dizziness/imbalance - Patient on Wellbutrin. Hyperlipidemia - Pt on statin for HLD. - recent LDL: 34. Given his h/o CLD, I think its reasonable to hold Statin, weighing risk/ benefit Dispo: OT/PT recommends Rehab, pt does not want to go. Pending stabilization. DVT prophylaxis: Warfarin Diet: Regular, less amount, more frequent, Code Status: DNI Admission and Anticipated Discharge Date Admission Date: February 23, 2025 Supervising Physician Co-Signing Physician Notes I personally examined the patient and verified all trivedi points of history and exam, discussed case, and agree with decision making with Dr Sandoval Acute hypoxic respiratory failure This resolved after initiating spironolactone. Initially on 40 mg of lasix and 100 mg of spironolactone. Now patient is improved and resumed home dose of 50 mg of spronolactone and 20 mg of lasix. I anticipate discharge will be tomorrow. f eating better than before. no vomiting. tolerating PO reasonably well. still weak - willing to go to SNF/rehab emphasis. nauseatrial of tube feeds - ?aversion nausea vs truly can't tolerate being the differential - tolerated well - and since removal eating better. likely predominantly nausea from aversion - improved. continue med management. protein calorie malnutritionacutely seems to be severe given his weakness and the fact that he looks more muscle wasting and emaciatednutrition consult appreciated. should have ongoing nutrition support after dc and d/w family to continue to encourage PO nutrition. DeconditioningPT/OT eval and treat ongoing at SNF [facility] top of nutrition and do the best he can with conditioning so as to be able to be a candidate when the time comes. otherwise as above Subjective Mr. Pryor 69 yo, male with cirrhosis and failure to thrive. He is in liver transplant list. He was kept on NG tube for couple days and was removed on 03/02/2025. He has not thrown up for last few days. No fever, belly pain. He was still sleeping when I saw him today. RN bedside mentioned he was quite off last night, confused from baseline however not defensive. I has updated family yesterday, they were willing him to go to rehab. 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 Review of Systems Review of Systems: As per HPI Physical Exam Physical Exam: Constitutional: Frail appearing, No acute distress. HEENT: Atraumatic, Normocephalic, No conjunctival injection CVS: S1 S2 no murmur, Regular Rhythm, Significant LE edema Respiratory: Shallow breathing, BL decreased breath sounds. GI: Distended abdomen, Nontender, Normal Bowel sounds + MSK: No gross deformities noted Skin: Warm, Dry, Bruise in IV site. Neuro: Was sleeping but responsive to voice, did not do full neuro exam Psych: Mood and Affect congruent, Cooperative on exam Results & Data Results & Data Vital Signs (Past 12 Hours) Vital Signs Temp Pulse Resp BP Pulse Ox O2 Del Method 03/06/25 20:50 Room Air 03/06/25 20:33 36.6 C 92 H 16 94/53 L 94 Room Air (2) GERD (gastroesophageal reflux disease) Esophagitis presence: without esophagitis Qualified Code(s): K21.9 - Gastro- esophageal reflux disease without esophagitis (3) Nausea & vomiting Vomiting type: unspecified Qualified Code(s): R11.2 - Nausea with vomiting, unspecified (7) Hypothyroidism Hypothyroidism type: unspecified Qualified Code(s): E03.9 - Hypothyroidism, unspecified
[2025-03-07 20:30] VITALS: TEMP 98.1
[2025-03-08 06:46] LABS: Hematocrit (blood only) 33.6 % (42.0-52.0); Hemoglobin 11.3 g/dL (14.0-18.0); Mean Corpuscular Hemoglobin 34.6 pg (25.0-34.0); Mean Corpuscular Volume 102.8 fL (80.0-100.0); Platelet Count 222 K/uL (130-400); RDW Standard Deviation 71.1 fL (36.4-46.3); Red Blood Count 3.27 M/uL (4.70-6.10); White Blood Count 6.22 K/ul (4.8-10.8)
[2025-03-08 07:08] LABS: Alanine Aminotransferase 37.0 U/L (7-52); Albumin Globulin Ratio 0.4 (0.9-2); Albumin Level 1.8 gm/dl (3.4-5.0); Alkaline Phosphatase 316.0 U/L (34-104); Anion Gap 5.0 (3-11); Bilirubin,Total 2.7 mg/dl (0.2-1.0); Blood Urea Nitrogen 15.0 mg/dl (6-23); Calcium 8.1 mg/dl (8.6-10.3); Carbon Dioxide 28.0 mmol/L (21-32); Chloride 101.0 mmol/L (98-107); Creatinine Clr Calc Pharmacy 85.5 ml/min; Globulin 5.0 gm/dl (2.5-4.0); Potassium 3.8 mmol/L (3.5-5.1); Sodium 134.0 mmol/L (136-145); Total Protein 6.8 gm/dl (6.0-8.3)
[2025-03-08 07:41] VITALS: PULSE 90; RESP 16; O2SAT 94
[2025-03-08 08:23] VITALS: BP 102/66
[2025-03-08] MEDS: FUROSEMIDE 20 MG TAB PO SCH (08:24)
[2025-03-08] MEDS: SPIRONOLACTONE 25 MG TAB PO SCH (08:24)
[2025-03-08 09:17] LABS: INR 3.1 (0.9-1.1); Prothrombin Time 30.6 Seconds (9.0-12.0)
--- NOTE | 2025-03-08 09:17 | Hospitalist Progress Note ---
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 #severe Hypoalbuminemia with anasarca( fluid in abdomen, pleural effusion, peripheral edema) 2.2 CLD, on transplant list - Diuretics first; frusemide+spironolactone combination. Resumed previous trialed dose Spironolactone 50 mg and Lasix 20 mg daily. - Order US limited to quantify ascites. He might need paracentesis. #Weakness/Physical deconditioning (uses walker at baseline) *Decreased PO intake ; multifactorial ( CLD vs Anticipatory nausea). IMPROVING NAUSEA with med mgmt. - Suspect progressively worsening weakness may be a combination of baseline physical deconditioning as has been seen in previous admissions, plus nausea leading to decreased PO intake and > 2 episodes of non bloody emesis daily. Likely some component of food aversion, given frequent nausea and desire to avoid provoking sx. - Weight loss of 3 kg compared to 02/02 ans admission. - GI consulted, appreciate recs: EGD July 2024: portal hypertensive gastropathy, small hiatal hernia, portal duodenopathy. Ordered Abd series, Abd US, Portal vein US - results do not provide adequate explanation of sx - Due to lack of clear pathology behind sx, other than food aversion, NG tube was inserted on 02/28. However after extensive discussion with patient on 03/03- with his consensus, it was removed. -Nutrition following: Appreciate recs. OT/PT recommends Rehab, pt would like go home. Patient aware of importance of going to rehab, however unsure if he would like to go rehab as of 03/06 Plan: Encourage PO intake. Discussed doing more frequent meal , less amount at a time. He has been consistently eating closer to 50% of his meal. #Nutritional Rehabilitation BMI: 22. Patient continues to eat by mouth. Improving PO. Plan: Encourage PO - Weight check Q 7 days. - Continue Nutrition counselling - Recommend More frequent, less amount intake. - Slow down feeds if nauseous. - Continue Olanzapine(for antinausea+ anti-anxiety effect) #Nausea / Vomiting *GERD, anticipatory nausea NO NAUSEA FOR LAST FEW days - Daily nausea and > 2 episodes of non bloody emesis leading to decreased PO intake on arrival. - Currently on Reglan ACHS and Zofran as needed. QT duration is improved to normal as per EKG repeated on 03/02/2025. - Reglan is better in terms of prokinetic effect however using together with Olanzapine for long time is not a good option, this will precipitate extrapyramidal side effects like Dystonia. I will hold Reglan and see how he does with as needed Zofran. Plan: - Zofran PRN. - Continue Protonix 40 mg PO and Pepcid 20 mg - Miralax daily Hyponatremia Improving - Labs today showing Na of 134; no sxs - Likely related to poor PO intake and only drinking water daily Plan: Encourage PO intake as mentioned above and monitor am labs Portal vein thrombosis / Chronic Warfarin use (INR goal 2-3) - Currently on Warfarin and Vitamin K( was held d/t supratherapeutic INR). - Follows Anticoagulation Clinic - INR of 2.4 today; Warfarin 2.5 mg on. I skipped his double dose on Saturday as he initially presented with supratherapeutic INR. Follow daily INR; Goal: 2-3 ESLD - Follows hepatology as an outpatient. [facility]. - On transplant list as per patient. -Talked to haile Peter's nurse navigator ( 03/02/2025): Pt is on list since 2013. MELD score 22 as per recent update. They will recheck MELD Q1 month for score 19-25. He will on list for next week if he approaches MELD 30. But now he is on wait list. During last visit, they identified him as frail patient for the whole process, hence they would like him to be evaluated by the team there in for pre surgery assessment. Nutrition, Anesthesiology and hepato will reassess him together( scheduled on Apr 02). They will holistically manage his nutrition status as well. They can have inpatient nutrition rehabilitation if needed. Until then they agree with our management. Willing to transfer if needed. DM-II - Continue Lantus and SSI Hypothyroidism - Continue Levothyroxine Anxiety - Will hold home BZD due to current weakness and dizziness/imbalance - Patient on Wellbutrin. Hyperlipidemia - Pt on statin for HLD. - recent LDL: 34. Given his h/o CLD, I think its reasonable to hold Statin, weighing risk/ benefit Dispo: OT/PT recommends Rehab, pt does not want to go. Pending stabilization. DVT prophylaxis: Warfarin Diet: Regular, less amount, more frequent, Code Status: DNI Admission and Anticipated Discharge Date Admission Date: February 23, 2025 Subjective Mr. Pryor 69 yo, male with cirrhosis and failure to thrive. He is in liver transplant list. He was kept on NG tube for couple days and was removed on 03/02/2025. He has not thrown up for last few days. No fever, belly pain. He mentioned having cough, which is not productive. No fever, CP, SOB. I has updated family 03/06 yesterday, they were willing him to go to rehab. 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 Review of Systems Review of Systems: As per HPI Physical Exam Physical Exam: Constitutional: Frail appearing, No acute distress. HEENT: Atraumatic, Normocephalic, No conjunctival injection CVS: S1 S2 no murmur, Regular Rhythm, Significant LE edema Respiratory: Shallow breathing, BL decreased breath sounds. GI: Distended abdomen, Nontender, Normal Bowel sounds + MSK: No gross deformities noted Skin: Warm, Dry, Bruise in IV site. Neuro: Was sleeping but responsive to voice, did not do full neuro exam Psych: Mood and Affect congruent, Cooperative on exam Results & Data Results & Data Vital Signs (Past 12 Hours) Vital Signs Temp Pulse Resp BP Pulse Ox O2 Del Method 03/08/25 08:22 102/66 03/08/25 07:41 36.7 C 90 16 95/63 L 94 Room Air (2) GERD (gastroesophageal reflux disease) Esophagitis presence: without esophagitis Qualified Code(s): K21.9 - Gastro- esophageal reflux disease without esophagitis (3) Nausea & vomiting Vomiting type: unspecified Qualified Code(s): R11.2 - Nausea with vomiting, unspecified (7) Hypothyroidism Hypothyroidism type: unspecified Qualified Code(s): E03.9 - Hypothyroidism, unspecified
--- NOTE | 2025-03-08 11:54 | Discharge Summary ---
Date of Service March 08, 2025 Admission HPI Per Admitting Provider Pt is a 69 yo male with a past medical hx of ESLD with hx of portal vein thrombosis now on warfarin chronically, hypothyroidism, CKD stage 3, GERD, T2DM on insulin, and hx esophageal varices who presents today for progressively worsening weakness. Patient's also at bedside and helping with history. Patient has been admitted around earlier this year due to fall experienced at home that seemed to be mechanical at the time with similar episodes around December and January, was discharged to [facility] due to noted weakness, then when he returned home around 2 weeks ago started to experience progressively wor sening weakness, fatigue, imbalance, and dizziness upon standing (though has had orthostatism over the last 6+ weeks) with symptoms being the worst over the last 2 days. Around this same time, he has had frequent nausea all day with at least 2 episodes of non bloody emesis in the morning when waking up and a few minutes after laying down at night, which lead to him using Zofran prior to going to bed to try and avoid waking up due to nausea. Due to this nausea, his PO intake has been very low (barely eats anything during the day) over the last 10 days but states he drinks around 60 oz of water daily. Denies having any associated fevers, chills, syncope, chest pain, SOB/ESTES, palpitations, abdominal pain, diarrhea/bm changes or other systemic sxs. ED Course: Given NSS 1L bolus x2, Given KCl 40 mEq PO, and Magnesium IV 1gm. Labs/Imaging: CBC with leukocytosis of 13.59 w/ neutrophilic predominance, hemoglobin 13.3 and platelets of 306. PT of 41.8, INR of 4.3 (was 1.8 on 02/12/25). CMP with hyponatremia of 128, hypokalemia of 3.4, Bicarb of 29, Creatinine of 0.90, Bsg of 110. Lactate of 2.8 that normalized to 1.8 after IVF administration. T.Bili of 4.1, AST of 72, ALT wnl at 35, and Alk phos of 371. Albumin of 2.1. TSH of 1.623. Troponin of 11.6. Biofire negative. CXR with increase in size of moderate to large left pleural effusion w/ associated left basilar opacity. Medical History: [Reviewed] Medications: [Reviewed] Surgical History: [Reviewed] Family history: [Reviewed] Allergies: [Reviewed] Social History: [Reviewed] Code Status: DNI Principal Diagnosis Deconditioning Hepatic Cirrhosis Discharge Exam General: Alert and oriented, no acute distress, quite pleasant gentleman HEENT: Normocephalic, moist oral mucosa, Cardio: Regular rate and rhythm, no murmur, Resp: Lungs clear to auscultation b/l, no wheezes or rhonchi, GI: Soft and nontender, bowel sounds active Skin: Warm, pink, dry, somewhat pale but not ill-appearing MSK: No palpable deformities on chest, no tenderness Discharge Data Allergies Allergy/AdvReac Type Severity Reaction Status Date / Time exenatide [From [place]] AdvReac Unknown Diarrhea Verified 02/16/25 13:13 Macrolide Antibiotics AdvReac Unknown prolonged Verified 03/02/25 13:29 QT Consultations 02/23/25 14:13 ED Decision to Admit Stat 02/25/25 10:44 Consult Gastroenterology Routine Procedures Performed Operation Date: 02/25/25 17:00 <No data on this case meets the specified criteria> Ordered Studies 02/26/25 07:00 US abdomen ltd ascites Routine US duplex portal hepatic veins Routine 02/26/25 13:51 CT abd pelvis wo con Routine 03/06/25 10:31 US abdomen ltd ascites Routine Hospital Course (1) Generalized weakness: (2) GERD (gastroesophageal reflux disease): (3) Nausea & vomiting: (4) Decreased oral intake: (5) Dehydration: (6) Hyponatremia: (7) Hypothyroidism: (8) End stage liver disease: (9) Controlled type 2 diabetes mellitus, with long-term current use of insulin: (10) Anticoagulant long-term use: (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 #severe Hypoalbuminemia with anasarca( fluid in abdomen, pleural effusion, peripheral edema) 2.2 CLD, on transplant list - Diuretics first; frusemide+spironolactone combination. Resumed previous trialed dose Spironolactone 50 mg and Lasix 20 mg daily. - Order US limited to quantify ascites. He might need paracentesis. #Weakness/Physical deconditioning (uses walker at baseline) *Decreased PO intake ; multifactorial ( CLD vs Anticipatory nausea). IMPROVING NAUSEA with med mgmt. - Suspect progressively worsening weakness may be a combination of baseline physical deconditioning as has been seen in previous admissions, plus nausea leading to decreased PO intake and > 2 episodes of non bloody emesis daily. Likely some component of food aversion, given frequent nausea and desire to avoid provoking sx. - Weight loss of 3 kg compared to 02/02 ans admission. - GI consulted, appreciate recs: EGD July 2024: portal hypertensive gastropathy, small hiatal hernia, portal duodenopathy. Ordered Abd series, Abd US, Portal vein US - results do not provide adequate explanation of sx - Due to lack of clear pathology behind sx, other than food aversion, NG tube was inserted on 02/28. However after extensive discussion with patient on 03/03- with his consensus, it was removed. -Nutrition following: Appreciate recs. OT/PT recommends Rehab, pt would like go home. Patient aware of importance of going to rehab, however unsure if he would like to go rehab as of 03/06 Plan: Encourage PO intake. Discussed doing more frequent meal , less amount at a time. He has been consistently eating closer to 50% of his meal. #Nutritional Rehabilitation BMI: 22. Patient continues to eat by mouth. Improving PO. Plan: Encourage PO - Weight check Q 7 days. - Continue Nutrition counselling - Recommend More frequent, less amount intake. - Slow down feeds if nauseous. - Continue Olanzapine(for antinausea+ anti-anxiety effect) #Nausea / Vomiting *GERD, anticipatory nausea NO NAUSEA FOR LAST FEW days - Daily nausea and > 2 episodes of non bloody emesis leading to decreased PO intake on arrival. - Currently on Reglan ACHS and Zofran as needed. QT duration is improved to normal as per EKG repeated on 03/02/2025. - Reglan is better in terms of prokinetic effect however using together with Olanzapine for long time is not a good option, this will precipitate extrapyramidal side effects like Dystonia. I will hold Reglan and see how he does with as needed Zofran. Plan: - Zofran PRN. - Continue Protonix 40 mg PO and Pepcid 20 mg - Miralax daily Hyponatremia Improving - Labs today showing Na of 134; no sxs - Likely related to poor PO intake and only drinking water daily Plan: Encourage PO intake as mentioned above and monitor am labs Portal vein thrombosis / Chronic Warfarin use (INR goal 2-3) - Currently on Warfarin and Vitamin K( was held d/t supratherapeutic INR). - Follows Anticoagulation Clinic - INR of 2.4 today; Warfarin 2.5 mg on. I skipped his double dose on Saturday as he initially presented with supratherapeutic INR. Follow daily INR; Goal: 2-3 ESLD - Follows hepatology as an outpatient. [facility]. - On transplant list as per patient. -Talked to [facility] nurse navigator ( 03/02/2025): Pt is on list since 2013. MELD score 22 as per recent update. They will recheck MELD Q1 month for score 19-25. He will on list for next week if he approaches MELD 30. But now he is on wait list. During last visit, they identified him as frail patient for the whole process, hence they would like him to be evaluated by the team there in for pre surgery assessment. Nutrition, Anesthesiology and hepato will reassess him together( scheduled on Apr 02). They will holistically manage his nutrition status as well. They can have inpatient nutrition rehabilitation if needed. Until then they agree with our management. Willing to transfer if needed. DM-II - Continue Lantus and SSI Hypothyroidism - Continue Levothyroxine Anxiety - Will hold home BZD due to current weakness and dizziness/imbalance - Patient on Wellbutrin. Hyperlipidemia - Pt on statin for HLD. - recent LDL: 34. Given his h/o CLD, I think its reasonable to hold Statin, weighing risk/ benefit Total Time Total Time Spent Total Time Spent (In Minutes): See attending's attestation Discharge Plan Discharge Items Patient Disposition: Transfer [facility] Reason For Visit: WEAKNESS Discharge Diagnosis: CLD Deconditioning. Condition on Discharge: Fair Activity: Resume your previous activity Non-emergency contact: Primary Care Provider Call non-emergency contact if: your symptoms worsen Follow-up/Referrals: Neelam Cooper CRNP [Primary Care Provider] - Diet: Regular Addtl Attending Provider Instructions: You were admitted to the hospital for worsening deconditioning with decreased oral intake. As you already know you were found frail during evaluation by liver transplant team at [facility] during last visit, you needed a nutritional gear up. We tried NG tubes, tried some changes in medication for you, started Olanzapine 2.5 mg which seems helpful and we were able to take NG tube out after few days of starting medication. A big reason for your nausea seems to to anticipatory. When we were giving you food through NG, your gut was able to handle this except from few episode of nausea here and there which was treated with treated with different anti-nausea medication.. Hence we strongly recommend you continue eating, which will keep you closer to getting transplant when you need it. Because your INR level keeps fluctuating, we suspect it's your nutrition not able to maintain the steady state of INR. We recommend you to take steady and sufficient amount of food which has Vitamin K like green leafy vegetables. A discharge summary will be sent to your primary care physician to ensure continuity of care. Please bring this discharge summary with you to your next office appointment so that your provider can review it at that time. Medications: Your medication list has been reviewed and reconciled upon discharge to ensure accuracy and continuity of care. An updated list of all your medications is included with your hospital discharge paperwork. Please review this list closely and make note of any changes to your medications. 1. Olanzapine 2.5mg PO daily. 2. Tab Zofran 4 mg as needed for nausea. 3. Restart frusemide 20 mg daily and Spironolactone 50 mg daily. 4. Pantoprazole 40 mg BID to continue 5. Famotidine 20 mg BID to continue Follow up appointments: - Make a follow up appointment with your PCP within the next week. It is very important that you follow up with them shortly after discharge from the hospital. - Keep all of your follow up appointments as already scheduled. If you cannot make an appointment, notify your provider. CONTACT YOUR PRIMARY CARE PROVIDER if you experience any of the following: - Difficulty following your treatment plan - Difficulty taking any of your medications CALL 911 OR GO TO THE EMERGENCY DEPARTMENT if you experience any of the following - Sudden, severe abdominal pain or nausea/vomiting - Severe chest pain or chest pain that radiates to your jaw or arm - Sudden, severe shortness of breath or difficulty breathing Pending Studies at Discharge: No Stand-Alone Forms: My [facility] Skilled Items Patient informed of condition?: Yes DNR: No Discharge Level of Care: Acute rehab Communicable Disease: No Discharge Prognosis: Stable Lines: None Urinary Catheter: No Medications and DC Order Prescriptions: New polyethylene glycol 3350 [Miralax] 17 gram Powder In Packet 17 g PO DAILY 7 Days Qty: 14 0RF olanzapine 2.5 mg Tablet 2.5 mg PO QAM 30 Days Qty: 30 0RF spironolactone 25 mg Tablet 50 mg PO QAM 30 Days Qty: 60 0RF famotidine 20 mg Tablet 20 mg PO BID 30 Days Qty: 60 0RF pantoprazole 40 mg Tablet,Delayed Release (Dr/Ec) 40 mg PO BID 30 Days Qty: 60 0RF guaifenesin [Mucinex] 600 mg Tablet Extended Release 12hr 600 mg PO Q12 10 Days Qty: 20 0RF ondansetron HCl 4 mg tablet 4 mg PO DAILY PRN (Reason: nausea and vomiting) 4 Days Qty: 10 0RF furosemide 20 mg tablet 20 mg PO DAILY Qty: 30 0RF Continued warfarin 2.5 mg tablet 2.5 mg PO DAILY Protocol: Dose Management Condition: Saturday Dose/Route: 2.5 mg Instruction: 1 x 2.5 mg tablet Condition: Saturday Dose/Route: 2.5 mg Instruction: 1 x 2.5 mg tablet Condition: Saturday Dose/Route: 2.5 mg Instruction: 1 x 2.5 mg tablet Condition: Saturday Dose/Route: 2.5 mg Instruction: 1 x 2.5 mg tablet Condition: Dose/Route: 2.5 mg Instruction: 1 x 2.5 mg tablet Condition: Saturday Dose/Route: 5 mg Instruction: 2 x 2.5 mg tablets Condition: Saturday Dose/Route: 2.5 mg Instruction: 1 x 2.5 mg tablet Protocol Text: Adjustment Start Date: Saturday02/12/25 INR Value: 1.8 INR Date: 02/12/25 Recheck Date: 02/26/25 insulin aspart U-100 [Novolog FlexPen U-100 Insulin] 100 unit/mL (3 mL) insulin pen 1 sliding scale dose subcut USEASDIRECTD ferrous sulfate [iron] 325 mg (65 mg iron) tablet 325 mg PO BID Qty: 60 0RF simvastatin 20 mg tablet 20 mg PO QAM Qty: 90 3RF levothyroxine 175 mcg tablet 175 mcg PO QAM Qty: 90 3RF (DME) pen needle, diabetic [TechLITE Pen Needle] 31 gauge x 5/16" needle See Rx Instructions .Route Qty: 100 11RF Rx Instructions: use BID with insulin injections lorazepam 0.5 mg tablet 0.5 mg PO DAILY PRN (Reason: anxiety) Qty: 30 0RF cyanocobalamin (vitamin B-12) 1,000 mcg capsule 1,000 mcg PO QAM (DME) OneTouch Ultra Blue Test Strip Strip See Rx Instructions .ROUTE .MEDSUPPLY Dose Instruction: As directed Rx Instructions: TEST 3 TIMES A DAY FOR MULTIPLE DAILY INSULIN INJECTIONS (DME) Dexcom G7 Load Dispatcher Local Misc See Rx Instructions .Route Rx Instructions: As directed phytonadione (vitamin K1) 100 mcg tablet 100 mcg PO DAILY ondansetron 4 mg tablet,disintegrating 4 mg translingual Q6 PRN (Reason: NAUSEA/VOMITING) Qty: 60 3RF Rx Instructions: DISSOLVE 1 TABLET ON THE TONGUE EVERY 6 HOURS NEEDED. insulin glargine [Lantus Solostar U-100 Insulin] 100 unit/mL (3 mL) insulin pen 4 unit subcut QAM Rx Instructions: inject at 8 am bupropion HCl 150 mg tablet sustained-release 12 hr 150 mg PO Q12 calcium carbonate 500 mg calcium (1,250 mg) Tablet 500 mg PO BID albuterol sulfate 90 mcg/actuation HFA aerosol inhaler 2 inh inhalation DAILY PRN (Reason: Wheezing) sertraline 50 mg tablet 50 mg PO QAM polyethylene glycol 3350 [Miralax] 17 gram Powder In Packet 17 g PO BID PRN (Reason: constpation) cholecalciferol (vitamin D3) [Vitamin D3] 25 mcg (1,000 unit) Tablet 25 mcg PO BID acetaminophen 325 mg Tablet 650 mg PO Q8 Xifaxan 550 mg tablet 550 mg PO BID Discontinued omeprazole 40 mg capsule,delayed release(DR/EC) 40 mg PO BIDM Rx Instructions: take 2 times a day before meals Discharge Orders: Discharge Order (Routine); Ordered 03/08/25 Ordered By: Loan Betts/Other Patient Handouts: ED Ascites Admission Data Admit Date/Time: 02/23/25 15:23 Attending Provider: Armando Viveros Admit Provider: Lillian Anderson Primary Care Provider: Neelam Cooper Other Providers: Armando Viveros; [facility]; Jhonny Jackson; [place]; Chinyere Ledbetter [facility] Supervising Physician Co-Signing Physician Notes I personally examined the patient and verified all trivedi points of history and exam, discussed case, and agree with decision making with Dr Sandoval feeling ok. eating better than before. no vomiting. tolerating PO reasonably well. still weak - willing to go to SNF/rehab emphasis. updated dtr. vitals noted nad heent nc at mmm breathing unlabored no accessory muscles good effort skin no rashes no pallor or icterus neuro cn 2-12 grossly intact gross motor/sensory intact no focal deficits noted. nauseatrial of tube feeds - ?aversion nausea vs truly can't tolerate being the differential - tolerated well - and since removal eating better. likely predominantly nausea from aversion - improved. continue med management. protein calorie malnutritionacutely seems to be severe given his weakness and the fact that he looks more muscle wasting and emaciatednutrition consult appreciated. should have ongoing nutrition support after dc and d/w family to continue to encourage PO nutrition. DeconditioningPT/OT eval and treat ongoing at SNF end-stage liver [facility] to stay on top of nutrition and do the best he can with conditionin g so as to be able to be a candidate when the time comes. otherwise as above
--- NOTE | 2025-03-08 12:49 | Billing Data ---
Date of Service March 08, 2025 Coding Level of Care Code 21132 IN/OBS DISCH 30 MIN/LESS
--- NOTE | 2025-03-08 14:06 | Billing Data ---
Date of Service March 05, 2025 Coding Level of Care Code 84760 SUB INP/OBS CARE MIN
--- NOTE | 2025-03-08 14:07 | Billing Data ---
Date of Service March 06, 2025 Coding Level of Care Code 70045 INT INP/OBS CARE
--- NOTE | 2025-03-08 14:09 | Billing Data ---
Date of Service March 07, 2025 Coding Level of Care Code 06014 SUB INP/OBS CARE MIN
[2025-03-08] MEDS ORDERED: guaiFENesin 600 MG TABCR PO SCH (21:00)
== END 2025-03-08 13:26 | DRG 432 ==
LOC: ED 11:02 → 3E 15:23 → SUATTDRO 15:23 → 3E 17:10